=== PATIENT | female | born 1980 | race Caucasian/White ===

== ENCOUNTER 2022-07-26 09:41 | Outpatient (OUT) | payer MEDICAID, SELFPAY ==
[2022-07-26 10:08] LABS: Basophils Absolute Auto 0.1 10^3/uL (0.0-0.1); Basophils Percent Auto 0.9 % (0.2-2.0); Eosinophils Absolute Auto 0.2 10^3/uL (0.0-0.7); Eosinophils Percent Auto 2.4 % (0.9-7.0); Hematocrit 40.4 % (36.0-48.0); Hemoglobin 13.5 g/dL (12.0-16.0); Immature Granulocytes Abs Auto 0.02 10^3/uL (0.00-0.03); Immature Granulocytes Pct Auto 0.2 % (0.0-0.5); Lymphocytes Absolute Auto 2.2 10^3/uL (1.2-3.8); Lymphocytes Percent Auto 25.2 % (20.5-60.0); Mean Corpuscular HGB Conc 33.4 g/dL (29.9-35.2); Mean Corpuscular Hemoglobin 30.4 pg (26.7-34.0); Mean Platelet Volume 8.9 fL (9.5-13.5); Monocytes Absolute Auto 0.6 10^3/uL (0.3-0.8); Monocytes Percent Auto 6.4 % (1.7-12.0); Neutrophils Absolute Auto 5.7 10^3/uL (1.4-6.5); Neutrophils Percent Auto 64.9 % (43.0-75.0); Platelet Count 328 10^3/uL (150-450); Red Blood Count 4.44 10^6/uL (4.20-5.40); Red Cell Distribution Width 12.9 % (11.0-15.0); White Blood Count 8.8 10^3/uL (4.0-11.0)
[2022-07-26 11:43] LABS: Alanine Aminotransferase 18 U/L (14-59); Albumin Globulin Ratio 0.8; Albumin Level 3.3 g/dL (3.4-5.0); Alkaline Phosphatase 131 U/L (46-116); Anion Gap 13.4; Aspartate Amino Transferase 12 U/L (15-37); BUN Creatinine Ratio 11.7; Bilirubin Total 0.6 mg/dL (0.2-1.0); Calcium 8.8 mg/dL (8.5-10.1); Carbon Dioxide 26.4 mmol/L (21.0-32.0); Chloride 105 mmol/L (98-107); Chol HDL Ratio 4.9; Cholesterol 214 mg/dL (<=200); Estimated GFR (African America >60 (>=60); Estimated GFR (Non-African Ame >60 (>=60); Glucose 102 mg/dL (74-106); HDL Cholesterol 44 mg/dL (40-60); Potassium 3.8 mmol/L (3.5-5.1); Sodium 141 mmol/L (136-145); Total Protein 7.3 g/dL (6.4-8.2); Triglycerides 112 mg/dL (<=150); VLDL CHOLESTEROL 22.4 mg/dL
[2022-07-26 13:16] LABS: Gamma Glutamyl Transpeptidase 16 U/L (8-55)
[2022-07-27 05:07] LABS: HIV Ab/p24 Ag Screen Non Reactive (Non Reactive)
== END 2022-07-26 09:42 ==
PROVIDERS: PCP Nurse Practitioner Primary Care; Visit Provider Nurse Practitioner Primary Care
DX: Z11.4 Encounter for screening for human immunodeficiency virus [HIV] (principal); E78.5 Hyperlipidemia, unspecified; I10 Essential (primary) hypertension; R74.8 Abnormal levels of other serum enzymes
CPT/HCPCS: 36415; 80053; 80061; 82977; 85025; 87086; 87389

== ENCOUNTER 2022-07-28 10:54 | Outpatient (OUT) | payer MEDICAID, SELFPAY ==
[2022-07-28 11:15] LABS: Basophils Absolute Auto 0.1 10^3/uL (0.0-0.1); Basophils Percent Auto 0.9 % (0.2-2.0); Eosinophils Absolute Auto 0.3 10^3/uL (0.0-0.7); Eosinophils Percent Auto 3.3 % (0.9-7.0); Hemoglobin 13.4 g/dL (12.0-16.0); Immature Granulocytes Abs Auto 0.01 10^3/uL (0.00-0.03); Immature Granulocytes Pct Auto 0.1 % (0.0-0.5); Lymphocytes Absolute Auto 2.2 10^3/uL (1.2-3.8); Lymphocytes Percent Auto 29.5 % (20.5-60.0); Mean Corpuscular HGB Conc 33.5 g/dL (29.9-35.2); Mean Corpuscular Hemoglobin 30.4 pg (26.7-34.0); Mean Corpuscular Volume 90.7 fL (81.0-99.0); Mean Platelet Volume 9.1 fL (9.5-13.5); Monocytes Absolute Auto 0.6 10^3/uL (0.3-0.8); Monocytes Percent Auto 7.7 % (1.7-12.0); Neutrophils Absolute Auto 4.4 10^3/uL (1.4-6.5); Neutrophils Percent Auto 58.5 % (43.0-75.0); Platelet Count 283 10^3/uL (150-450); Red Blood Count 4.41 10^6/uL (4.20-5.40); Red Cell Distribution Width 13.1 % (11.0-15.0); White Blood Count 7.6 10^3/uL (4.0-11.0)
[2022-07-28 12:56] LABS: Amylase 36 U/L (25-115)
== END 2022-07-28 10:55 | disposition home or self-care (01) ==
LOC: LAB 10:55
PROVIDERS: PCP Nurse Practitioner Primary Care; Visit Provider Nurse Practitioner Primary Care
DX: R10.9 Unspecified abdominal pain (principal)
CPT/HCPCS: 36415; 82150; 83690; 85025

== ENCOUNTER 2022-07-28 18:28 | Outpatient (REF) | payer MEDICAID, SELFPAY | END 2022-07-28 18:29 | disposition home or self-care (01) | LOC: LAB 18:28 | PROVIDERS: PCP Nurse Practitioner Primary Care; Visit Provider Nurse Practitioner Primary Care | DX: R10.9 Unspecified abdominal pain (principal) | CPT/HCPCS: 36415; 82150; 83690; 85025; 87086; 87150; 87186 ==

== ENCOUNTER 2022-08-03 18:40 | Emergency (ER) | payer MEDICAID, SELFPAY ==
[2022-08-03 18:53] VITALS: BP 143/93; PULSE 113; RESP 16; TEMP 37; O2SAT 97; BMI 41.6
--- NOTE | 2022-08-03 19:20 | ED.WOUNDLAC1 ---
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 She states absorbable sutures were placed inside the incision and several days ago she had a small area of the incision over her right episcopal open and draining. She states there is now scabbed area she is concerned about. She has had no fevers or vomiting. She states she has some tenderness to the area but no significant pain and states overall she feels she is healing very well. She states she called her surgeon and was told to come to the emergency department. She is at the end of a prescription of Bactrim for urinary tract infection. Related Data Previous Rx's Medication Instructions Recorded cephalexin 500 mg capsule 500 mg PO Q8H 5 days #15 caps 08/03/22 mupirocin calcium 2 % topical cream 1 applic topical BID #15 grams 08/03/22 Allergies Allergy/AdvReac Type Severity Reaction Status Date / Time Penicillins Allergy Intermediate Verified 08/03/22 18:53 naproxen [From EC-Naproxen] AdvReac Intermediate Verified 08/03/22 18:53 nickel AdvReac Uncoded 08/03/22 18:53 Review of Systems ROS Constitutional Denies: fever or chills Eyes Denies: change in vision Cardiovascular Denies: chest pain Respiratory Denies: shortness of breath or cough Gastrointestinal Denies: nausea or vomiting Musculoskeletal Denies: back pain Integumentary/Breast Reports: redness, skin pain and skin tenderness; Denies: rash Neurological Denies: headache PFSH PFSH Social History Smoking status: Current every day smoker Exam Narrative Exam Narrative: Gen.: Awake, alert, in no distress Head: Normocephalic, atraumatic; surgical incision that is well-healed over the right hairline. 1 cm scabbed area in the center of the incision consistent with scabbed wound dehiscence, no visible abscess or drainage at this time. No bleeding. Minimal tenderness of the skin around this area. ENT: Moist mucous membranes Respiratory: No respiratory distress, lungs clear bilaterally Cardio: Regular rate and rhythm Gastrointestinal: Abdomen is soft, nondistended and nontender to palpation Extremities: Moves extremities equally, no injuries noted Psych: Normal mood and affect Neuro: No focal neuro deficit Skin: Warm, dry, intact Constitutional Vital Signs - 24 hr 08/03/22 18:53 Temperature 98.6 F Pulse Rate [Monitor] 113 H Respiratory Rate 16 Blood Pressure [Right Arm] 143/93 H Pulse Oximetry 97 Oxygen Delivery Method Room Air Course Vital Signs Vital signs: Vital Signs Temperature 98.6 F 08/03/22 18:53 Pulse Rate 113 H 08/03/22 18:53 Respiratory Rate 16 08/03/22 18:53 Blood Pressure 143/93 H 08/03/22 18:53 Pulse Oximetry 97 08/03/22 18:53 Oxygen Delivery Method Room Air 08/03/22 18:53 Temperature 98.6 F 08/03/22 18:53 Pulse Rate 113 H 08/03/22 18:53 Respiratory Rate 16 08/03/22 18:53 Blood Pressure 143/93 H 08/03/22 18:53 Pulse Oximetry 97 08/03/22 18:53 Oxygen Delivery Method Room Air 08/03/22 18:53 MDM - Wound/Laceration MDM Narrative Medical decision making narrative: exam is consistent with minimal wound dehiscence and scabbed area. Patient given Bactroban ointment to apply to the area as well as five days of Keflex to prevent skin infection. She appears to have a well-healing incision at this time with no large areas of dehiscence, bleeding or abscess noted. Follow-up with your surgeon and return to the Emergency Room if symptoms change or worsen Medical Records Attestation: I reviewed the patient's medical records. Discharge Plan Discharge Chief Complaint: Wound/Laceration Clinical Impression: Wound dehiscence, surgical Patient Disposition: Home, Self-Care Time of Disposition Decision: 19:21 Condition: Good Prescriptions / Home Meds: New cephalexin 500 mg capsule 500 mg PO Q8H 5 Days Qty: 15 0RF mupirocin calcium 2 % cream 1 applic topical BID Qty: 15 0RF Instructions: Wound Dehiscence (ED), Care For Your Absorbable Stitches (ED) Stand Alone Forms: Portal Instructions Referrals: EDMAR PRIETO APRN [Primary Care Provider] - 1 week
== END 2022-08-03 19:45 | disposition home or self-care (01) ==
PROVIDERS: Emergency Provider Emergency Medicine; PCP Nurse Practitioner Primary Care
DX: T81.31XA Disruption of external operation (surgical) wound, not elsewhere classified, initial encounter (principal); F17.210 Nicotine dependence, cigarettes, uncomplicated
CPT/HCPCS: 99282

== ENCOUNTER 2022-08-10 10:13 | Outpatient (OUT) | payer MEDICAID, SELFPAY ==
--- NOTE | 2022-08-10 10:17 | XR_ITS ---
The [address] [address] Patient Name: ARACELI FRANCOIS MRN: [id number] date: 1980 Sex: F Assigned Patient Location: [facility] Current Patient Location: [facility] Accession/Order Number: [id number] Exam Date: 08/10/2022 10:40 Report Date: 08/10/2022 11:01 At the request of: EDMAR PRIETO Procedure: XR chest 2V EXAMINATION: XR chest 2V HISTORY: Upper back pain M54.9 COMPARISON: XR chest 12/06/2021 FINDINGS: LUNGS: No significant pulmonary parenchymal abnormalities. VASCULATURE: No increased pulmonary vasculature. PLEURA: No pneumothorax, effusion, or pleural thickening. CARDIAC: No cardiomegaly or cardiac silhouette abnormality. MEDIASTINUM: No visible mass or adenopathy. BONES: No fracture or visible bone lesion. OTHER: Negative. IMPRESSION: 1. Normal chest. Electronically authenticated by: GIANFRANCO CORDON Date: 08/10/2022 11:01
== END 2022-08-10 10:14 | disposition home or self-care (01) ==
LOC: RAD 10:14
PROVIDERS: PCP Nurse Practitioner Primary Care; Visit Provider Nurse Practitioner Primary Care
DX: M54.9 Dorsalgia, unspecified (principal)
CPT/HCPCS: 71046

== ENCOUNTER 2022-09-19 08:30 | Emergency (ER) | payer MEDICAID, SELFPAY ==
[2022-09-19 08:34] VITALS: BP 144/90; PULSE 90; RESP 18; TEMP 36.7; O2SAT 99; BMI 38.0
--- NOTE | 2022-09-19 09:15 | ED_ITS ---
HPI - General Adult General Chief complaint: Abdominal Pain Stated complaint: BLOOD IN URINE Time Seen by Provider: 09/19/22 08:33 Source: patient Mode of arrival: walk-in Limitations: no limitations History of Present Illness HPI narrative: 42-year-old female to the emergency department with chief complaint of hematuria. Patient reports she had dysuria, frequency, hematuria ongoing for the last few days. She noticed hematuria this morning. She reports a month and half ago she had a urinary tract infection with similar symptoms. She reports some mild nausea and body aches today. She reports mild flank/back pain which is chronic for her. She is otherwise at her baseline health. Related Data Previous Rx's Medication Instructions Recorded cephalexin 500 mg capsule 500 mg PO Q6H 7 days #28 caps 09/19/22 Allergies Allergy/AdvReac Type Severity Reaction Status Date / Time Penicillins Allergy Intermediate Verified 08/03/22 18:53 duloxetine [From Cymbalta] AdvReac Intermediate Verified 09/19/22 08:34 naproxen [From EC-Naproxen] AdvReac Intermediate Verified 08/03/22 18:53 nickel AdvReac Uncoded 08/03/22 18:53 Review of Systems ROS Status of ROS 10 or more systems reviewed and unremarkable except as noted in history and below [facility] Social History Smoking status: Current every day smoker Exam Narrative Exam Narrative: VITALS: I have reviewed the triage vital signs. GENERAL: Well developed, well appearing adult in no acute distress. NEURO: Alert and oriented. Moves all extremities. Face is symmetric and expres sive. EYES: PERRL. No scleral icterus or conjunctival injection. No discharge. HENT: Normocephalic, atraumatic. Hearing is grossly intact. Nares grossly patent and without discharge. Mucous membranes moist. NECK: No JVD. Patient moves neck without restriction. CARDIO: Rhythm regular. Normal rate. No murmur, rub, or gallop. Pulses equal bilaterally in the upper and lower extremity. No lower extremity edema. PULM: Lungs clear to auscultation in all cabral. No wheezes, rales, or rhonchi. No conversational dyspnea. No splinting, stridor, or accessory muscle use. GI/: Abdomen is soft and non-tender. Normoactive bowel sounds. EXTREMITIES: Symmetric muscle bulk. No joint swelling. No clubbing, cyanosis, or deformity. SKIN: Warm and dry. Normal turgor. No rash or lesions appreciated. PSYCH: Mood, affect, and interaction is appropriate to the setting. Constitutional Vital Signs, click to edit/add: Last Vital Signs Temp 98.1 F 09/19/22 08:34 Pulse 90 09/19/22 08:34 Resp 18 09/19/22 08:34 BP 144/90 H 09/19/22 08:34 Pulse Ox 99 09/19/22 08:34 O2 Del Method Room Air 09/19/22 08:34 Course Vital Signs Vital signs: Vital Signs Temperature 98.1 F 09/19/22 08:34 Pulse Rate 90 09/19/22 08:34 Respiratory Rate 18 09/19/22 08:34 Blood Pressure 144/90 H 09/19/22 08:34 Pulse Oximetry 99 09/19/22 08:34 Oxygen Delivery Method Room Air 09/19/22 08:34 Temperature 98.1 F 09/19/22 08:34 Pulse Rate 90 09/19/22 08:34 Respiratory Rate 18 09/19/22 08:34 Blood Pressure 144/90 H 09/19/22 08:34 Pulse Oximetry 99 09/19/22 08:34 Oxygen Delivery Method Room Air 09/19/22 08:34 Medical Decision Making MDM Narrative Medical decision making narrative: 42-year-old female with the emergency department with urinary tract infection like symptoms. Medical stable, the patient is afebrile. Her abdominal examination is benign. Urinalysis sent. Status post hysterectomy, hCG not indicated. UA consistent with UTI. Previous culture reviewed, Klebsiella only resistant to ampicillin. Culture sent. Keflex QID x7 days. She has a scheduled follow-up with urology. Discussed need for follow-up for hematuria. She'll follow up with PCP. All questions were answered. Patient was discharged home. Medical Records Medical records reviewed: Yes I reviewed the patient's medical records Lab Data Lab results reviewed: Yes I reviewed the patient's lab results Labs: Lab Results 09/19/22 Range/Units 08:40 Urine Color Brown A (YELLOW) Urine Clarity Turbid A (CLEAR) Urine pH 6.5 (5.0-9.0) Ur Specific [place] 1.025 (1.005-1.025) Urine Protein >=300 A (NEG/TRACE) mg/dL Urine Glucose (UA) Negative (NEGATIVE) mg/dL Urine Ketones Negative (NEGATIVE) mg/dL Urine Occult Blood Large A (NEGATIVE) Urine Nitrite Color interference A (NEGATIVE) Urine Bilirubin Negative (NEGATIVE) Urine Urobilinogen 0.2 (0.2-1.0) EU/dL Ur Leukocyte Esterase Moderate A (NEGATIVE) Urine RBC >100 A (0-2) #/HPF Urine WBC 5-10 A (NONE SEEN) #/HPF Ur Squamous Epith Cells None seen (NONE/RARE) #/LPF Urine Crystals None seen (None Seen) #/HPF Urine Bacteria Trace A (NONE SEEN) #/HPF Urine Casts None seen (NONE SEEN) #/LPF Urine Mucus None seen (NONE SEEN) Ur Culture Indicated? Yes Discharge Plan Discharge Chief Complaint: Abdominal Pain Clinical Impression: UTI (urinary tract infection) Patient Disposition: Home, Self-Care Time of Disposition Decision: 09:28 Condition: Good Prescriptions / Home Meds: New cephalexin 500 mg capsule 500 mg PO Q6H 7 Days Qty: 28 0RF Print Language: Korean Instructions: Urinary Tract Infection in Women (ED) Stand Alone Forms: Portal Instructions Referrals: EDMAR PRIETO APRN [Primary Care Provider] - 1 week (Keep your visit with urology as well)
[2022-09-19 09:21] LABS: Clarity Urine TURBID (CLEAR); Protein Urine >=300 mg/dL (NEG/TRACE); Specific Gravity Urine 1.025 (1.005-1.025); pH Urine 6.5 (5.0-9.0)
[2022-09-19 09:22] LABS: Bilirubin Urine NEGATIVE (NEGATIVE); Blood Urine LARGE (NEGATIVE); Color Urine BROWN (YELLOW); Glucose Urine UA NEGATIVE (NEGATIVE); Ketones Urine NEGATIVE (NEGATIVE); Leukocyte Esterase Urine MODERATE (NEGATIVE); Nitrite Urine COLOR INTERFERENCE (NEGATIVE); Urobilinogen Urine 0.2 EU/dL (0.2-1.0)
[2022-09-19 09:23] LABS: Bacteria Urine TRACE #/HPF (NONE SEEN); Cast Seen? NONE SEEN #/LPF (NONE SEEN); Crystals Seen? None Seen #/HPF (None Seen); Mucus Urine NONE SEEN (NONE SEEN); RBC Urine >100 #/HPF (0-2); Squamous Epithelial Cell Urine NONE SEEN #/LPF (NONE/RARE); Urine Culture Indicated YES
== END 2022-09-19 09:36 | disposition home or self-care (01) ==
PROVIDERS: Emergency Provider Student in an Organized Health Care Education/Training Program; PCP Nurse Practitioner Primary Care
DX: N39.0 Urinary tract infection, site not specified (principal); F17.210 Nicotine dependence, cigarettes, uncomplicated
CPT/HCPCS: 81001; 87086; 87150; 87186; 99283

== ENCOUNTER 2022-10-27 07:47 | Outpatient (OUT) | payer MEDICAID, SELFPAY ==
[2022-10-27 08:21] LABS: Alanine Aminotransferase 21 U/L (14-59); Albumin Globulin Ratio 0.8; Albumin Level 3.2 g/dL (3.4-5.0); Alkaline Phosphatase 140 U/L (46-116); Anion Gap 11.3; Aspartate Amino Transferase 15 U/L (15-37); BUN Creatinine Ratio 9.6; Bilirubin Total 0.7 mg/dL (0.2-1.0); Calcium 8.5 mg/dL (8.5-10.1); Carbon Dioxide 29.8 mmol/L (21.0-32.0); Chloride 103 mmol/L (98-107); Cholesterol 135 mg/dL (<=200); Estimated GFR (African America >60 (>=60); Estimated GFR (Non-African Ame >60 (>=60); Globulin 3.8 g/dL; Glucose 93 mg/dL (74-106); HDL Cholesterol 45 mg/dL (40-60); LDL Cholesterol Calculated 72.8 mg/dL; Potassium 4.1 mmol/L (3.5-5.1); Sodium 140 mmol/L (136-145); Triglycerides 86 mg/dL (<=150); VLDL CHOLESTEROL 17.2 mg/dL
== END 2022-10-27 07:48 | disposition home or self-care (01) ==
LOC: LAB 07:47
PROVIDERS: PCP Nurse Practitioner Primary Care; Visit Provider Nurse Practitioner Primary Care
DX: I10 Essential (primary) hypertension (principal); E78.5 Hyperlipidemia, unspecified
CPT/HCPCS: 36415; 80053; 80061

== ENCOUNTER 2022-11-06 07:38 | Outpatient (OUT) | payer MEDICAID, SELFPAY ==
[2022-11-06 08:00] LABS: Basophils Absolute Auto 0.1 10^3/uL (0.0-0.1); Basophils Percent Auto 0.8 % (0.2-2.0); Eosinophils Absolute Auto 0.2 10^3/uL (0.0-0.7); Eosinophils Percent Auto 2.5 % (0.9-7.0); Hematocrit 43.3 % (36.0-48.0); Hemoglobin 14.4 g/dL (12.0-16.0); Immature Granulocytes Abs Auto 0.01 10^3/uL (0.00-0.03); Immature Granulocytes Pct Auto 0.1 % (0.0-0.5); Lymphocytes Absolute Auto 2.1 10^3/uL (1.2-3.8); Lymphocytes Percent Auto 21.7 % (20.5-60.0); Mean Corpuscular HGB Conc 33.3 g/dL (29.9-35.2); Mean Corpuscular Hemoglobin 29.9 pg (26.7-34.0); Mean Corpuscular Volume 89.8 fL (81.0-99.0); Mean Platelet Volume 9.6 fL (9.5-13.5); Monocytes Absolute Auto 0.4 10^3/uL (0.3-0.8); Monocytes Percent Auto 4.7 % (1.7-12.0); Neutrophils Absolute Auto 6.6 10^3/uL (1.4-6.5); Neutrophils Percent Auto 70.2 % (43.0-75.0); Platelet Count 271 10^3/uL (150-450); Red Blood Count 4.82 10^6/uL (4.20-5.40); Red Cell Distribution Width 13.2 % (11.0-15.0); White Blood Count 9.5 10^3/uL (4.0-11.0)
[2022-11-06 08:45] LABS: Estimated Average Glucose 117 mg/dL; Glycohemoglobin A1C 5.7 % (4.5-6.2)
[2022-11-06 09:19] LABS: Thyroid Stimulating Hormone 5.057 uIU/mL (0.358-3.740)
[2022-11-06 10:07] LABS: Free T4 0.88 ng/dL (0.76-1.46)
[2022-11-07 05:08] LABS: HCV Ab Non Reactive (Non Reactive)
== END 2022-11-06 07:39 | disposition home or self-care (01) ==
LOC: LAB 07:39
PROVIDERS: PCP Nurse Practitioner Primary Care; Visit Provider Nurse Practitioner Primary Care
DX: Z00.00 Encounter for general adult medical examination without abnormal findings (principal); Z11.59 Encounter for screening for other viral diseases; Z13.6 Encounter for screening for cardiovascular disorders; Z13.29 Encounter for screening for other suspected endocrine disorder
CPT/HCPCS: 36415; 83036; 84439; 84443; 85025; 86803

== ENCOUNTER 2022-11-09 19:10 | Outpatient (REF) | payer MEDICAID, SELFPAY ==
[2022-11-09 19:32] LABS: Adenovirus NOT DETECTED (NOT DETECTE); Bordetella parapertussis NOT DETECTED (NOT DETECTE); Coronavirus 229E NOT DETECTED (NOT DETECTE); Coronavirus HKU1 NOT DETECTED (NOT DETECTE); Coronavirus NL63 NOT DETECTED (NOT DETECTE); Coronavirus OC43 NOT DETECTED (NOT DETECTE); Human Metapneumovirus NOT DETECTED (NOT DETECTE); Human Rhinovirus/Enterovirus NOT DETECTED (NOT DETECTE); Influenza A NOT DETECTED (NOT DETECTE); Influenza B NOT DETECTED (NOT DETECTE); Mycoplasma pneumoniae NOT DETECTED (NOT DETECTE); Parainfluenza Virus 1 NOT DETECTED (NOT DETECTE); Parainfluenza Virus 2 NOT DETECTED (NOT DETECTE); Parainfluenza Virus 3 NOT DETECTED (NOT DETECTE); Parainfluenza Virus 4 NOT DETECTED (NOT DETECTE); Respiratory Syncytial Virus NOT DETECTED (NOT DETECTE); SARS-CoV-2 NOT DETECTED (NOT DETECTE)
== END 2022-11-09 19:11 | disposition home or self-care (01) ==
LOC: LAB 19:10
PROVIDERS: PCP Nurse Practitioner Primary Care; Visit Provider Nurse Practitioner Primary Care
DX: Z20.822 Contact with and (suspected) exposure to COVID-19 (principal); J02.9 Acute pharyngitis, unspecified
CPT/HCPCS: 0202U

== ENCOUNTER 2022-11-13 08:54 | Outpatient (OUT) | payer MEDICAID, SELFPAY ==
--- NOTE | 2022-11-13 08:59 | MM_ITS ---
Patient: ARACELI FRANCOIS Exam Date: 11/13/2022 : 1980 Gender:F Ordering : EDMAR PRIETO Admission #: [id number] Family : Order #: [id number] CLICK HERE TO VIEW EXAM RADIOLOGY REPORT PROCEDURE: MM TOMOSYNTHESIS SCREENING BI COMPARISON: MG MAMM SCREEN 3D TISHA CAD, 11/08/2021. MG MAMM SCREEN 3D TISHA CAD, 07/19/2020. INDICATIONS: Screening Calculator Name NCI Breast Cancer Risk Assessment Tool 5 Year Breast Cancer Risk 0.50% Lifetime Breast Cancer Risk 6.50% Personal Breast Cancer No Personal Ovarian Cancer No Treatments None Family Cancers None LOCATION: [facility] BREAST COMPOSITION: Scattered areas fibroglandular density. FINDINGS: DIAGNOSTIC CATEGORY 1--NEGATIVE. NO CHANGE FROM COMPARISON ASSESSMENT. Scattered benign-appearing calcifications are present. Scattered benign-appearing lymph nodes are present. RIGHT BREAST: No significant suspicious finding. LEFT BREAST: No significant suspicious finding. RECOMMENDATIONS: ROUTINE MAMMOGRAM AND CLINICAL EVALUATION IN 12 MONTHS. PLEASE NOTE: A NORMAL MAMMOGRAM DOES NOT EXCLUDE THE POSSIBILITY OF BREAST CANCER. A CLINICALLY SUSPICIOUS PALPABLE LUMP SHOULD BE BIOPSIED. Dictated by: Keith Ferreira MD on 11/13/2022 at 10:45 Approved by: Keith Ferreira MD on 11/13/2022 at 10:46
== END 2022-11-13 08:55 | disposition home or self-care (01) ==
LOC: MAMMO 08:54
PROVIDERS: PCP Nurse Practitioner Primary Care; Visit Provider Nurse Practitioner Primary Care
DX: Z12.31 Encounter for screening mammogram for malignant neoplasm of breast (principal)
CPT/HCPCS: 77063; 77067

== ENCOUNTER 2023-01-10 21:16 | Outpatient (REF) | payer MEDICAID, SELFPAY ==
[2023-01-10 22:31] LABS: Adenovirus NOT DETECTED (NOT DETECTE); Coronavirus 229E NOT DETECTED (NOT DETECTE); Coronavirus HKU1 NOT DETECTED (NOT DETECTE); Coronavirus NL63 NOT DETECTED (NOT DETECTE); Coronavirus OC43 NOT DETECTED (NOT DETECTE)
[2023-01-10 22:32] LABS: Bordetella parapertussis NOT DETECTED (NOT DETECTE); Human Metapneumovirus NOT DETECTED (NOT DETECTE); Human Rhinovirus/Enterovirus NOT DETECTED (NOT DETECTE); Influenza A NOT DETECTED (NOT DETECTE); Influenza B NOT DETECTED (NOT DETECTE); Mycoplasma pneumoniae NOT DETECTED (NOT DETECTE); Parainfluenza Virus 1 NOT DETECTED (NOT DETECTE); Parainfluenza Virus 2 NOT DETECTED (NOT DETECTE); Parainfluenza Virus 3 NOT DETECTED (NOT DETECTE); Parainfluenza Virus 4 NOT DETECTED (NOT DETECTE); Respiratory Syncytial Virus NOT DETECTED (NOT DETECTE)
[2023-01-10 23:25] LABS: SARS-CoV-2 DETECTED (NOT DETECTE)
== END 2023-01-10 21:17 | disposition home or self-care (01) ==
LOC: LAB 21:16
PROVIDERS: PCP Nurse Practitioner Primary Care; Visit Provider Nurse Practitioner Primary Care
DX: J06.9 Acute upper respiratory infection, unspecified (principal)
CPT/HCPCS: 0202U

== ENCOUNTER 2023-04-12 09:36 | Outpatient (OUT) | payer MEDICAID, SELFPAY ==
--- OUTSIDE RECORDS SUMMARY | 2023-04-12 09:40 | XMS_ITS | CCD ---
Author Name Unknown Address [address] [place] [address] Organization [facility] Care Team Providers Care Hot [employer] Mill Inspector Name Role Phone DO Ron Wallace Attending Provider NON STAFF Primary Care Provider Unavailabl e SHAMMO, SHAD Primary Care Unavailable SHAMMO, SHAD Attending Unavailable SHAMMO, SHAD Admitting Unavailable WEST, DR MARCE Marion Consulting Unavailable SHAMMO, SHAD Consulting Unavailable SHAMMO, SHAD Attending Unavailable SHAMMO, SHAD Admitting Unavailable WEST, DR MARCE Marion Consulting Unavailable SHAMMO, SHAD Primary Care Unavailable SHAMMO, SHAD Consulting Unavailable SHAMMO, SHAD Primary Care Unavailable SHAMMO, SHAD Attending Unavailable SHAMMO, SHAD Admitting Unavailable WEST, DR MARCE Marion Consulting Unavailable SHAMMO, SHAD Consulting Unavailable GUIDRY ., DR OMAR Benitez Attending Unavailable WEST, DR MARCE Marion Consulting Unavailable GUIDRY ., DR OMAR Benitez Admitting Unavailable SHAMMO, SHAD Primary Care Unavailable GUIDRY ., DR OMAR Benitez Consulting Unavailable GUIDRY ., DR OMAR Benitez Attending Unavailable GUIDRY ., DR OMAR Benitez Admitting Unavailable SHAMMO, SHAD Primary Care Unavailable HARTLEY .ZELALEM Consulting Unavailable GUIDRY ., DR OMAR Benitez Consulting Unavailable [facility] Attending Unava ilable [facility] Admitting Unava ilable SHAMMO, SHAD Primary Care Unavailable IRMA ROTH Consulting Unavailable IRAM ROTH Attending Unavailable MISC, DR ALVAREZ Primary Care Unavailable IRAM ROTH Admitting Unavailable ELAINE, MICHELLE Consulting Unavailable PAY ., DR MADERA Consulting Unavailable PAY ., DR MADERA Attending Unavailable MISC, DR ALVAREZ Primary Care Unavailable PAY ., DR MADERA Admitting Unavailable SHAMMO, SHAD Admitting Unavailable SHAMMO, SHAD Attending Unavailable SHAMMO, SHAD Primary Care Unavailable JES, QUIRINO Attending Unavailable SHAMMO, SHAD Primary Care Unavailable JES, QUIRINO Admitting Unavailable NUREMBERG, DR MARCE Marion Consulting Unavailable JES, QUIRINO Consulting Unavailable SHAMMO, SHAD Consulting Unavailable SHAMMO, SHAD Admitting Unavailable SHAMMO, SHAD Attending Unavailable SHAMMO, SHAD Primary Care Unavailable SHAMMO, SHAD Admitting Unavailable SHAMMO, SHAD Consulting Unavailable SHAMMO, SHAD Attending Unavailable SHAMMO, SHAD Primary Care Unavailable MISC, DOCTOR Attending Unavailable SHAMMO, SHAD Consulting Unavailable MISC, DOCTOR Primary Care Unavailable MISC, DOCTOR Admitting Unavailable NON STAFF Primary Care Provider UnavailMD Siva De La Garza Attending Provider Siva You Admitting Unavailable Siva You Attending Unavailable NON STAFF Primary Care Unavailable NON STAFF Primary Care Unavailable Joe Wallace Admitting Unavailab Joe Clarke Attending Unavailab Albaro Joseph Unavailable Greyson Mtz Attending Unavailable Bibi Kadori Primary Care Unavailable RESZKO, LASHELL Attending Unavailable RESZKO, LASHELL Attending Unavailable JES, QUIRINO Attending Unavailable RESZKO, LASHELL Attending Unavailable RESZKO, LASHELL Attending Unavailable RESZKO, LASHELL Attending Unavailable RESZKO, LASHELL Attending Unavailable Kisha Barkley Unavailable Shammo BUNDLES HANGER-MANUSCRIPTS CURATOR, Shad Primary Care Provider [phone] DB RIVERA Attending Unavailable RIVERADB WRIGHT Referring Unavailable SHAMMO, SHAD Primary Care Unavailable LIZZ GUTIÉRREZ Referring Unavailable SHAMMO, SHAD Primary Care Unavailable SHAMMO, SHAD Referring Unavailable SHAMMO, SHAD Primary Care Unavailable DB RIVERA Admitting Unavailable RIVERA, DB Attending Unavailable SHAMMO, SHAD Primary Care Unavailable Allergies Allergy Classification Reported Allergen(s) Allergy Type Date of Onset Reaction(s) Facility (2 sources) DULoxetine Drug Allergy 12-21-19 [facility] (4 sources) Leucine; Translations: [NICKEL] Drug Allergy 08-05-19 19 [facility] (4 sources) Penicillin Drug Allergy 05-28-19 21 Unknown [facility] (9 sources) DULoxetine; Translations: [duloxetine] Drug Allergy 12-29-19 22 Vomiting [facility] (10 sources) Naproxen; Translations: [naproxen] Drug Allergy 06-09-19 17 Hives [facility] (7 sources) Penicillins; Translations: [Penicillins] Allergy to substance 03-20-19 17 Shortness Of Breath, Rash [facility] (1 source) Unable to Assess Drug allergy (disorder) 12-21-19 [facility] (3 sources) penicillAMINE Drug Allergy anaphylaxis [facility] Other (1 source) Bee pollen; Translations: [BEE POLLEN] Propensity to adverse reactions to drug (disorder) 01-12-20 [facility] (3 sources) nickel Drug Allergy 08-05-19 anaphylaxis [facility] Medications Current Medications Medication Drug Class(es) Dates Sig (Normalized) Sig (Original) acetaminophen 500 mg oral tablet (5 sources) Start: 10-17-2021 take 1 tablet by mouth every six hours as needed for pain acetaminophen (TYLENOL EXTRA STRENGTH) 500 mg tablet Take 1 tablet (500 mg total) by mouth every 6 (six) hours as needed for pain. 30 tablet 0 10/17/2021 Active Tylenol prn Acti ve [id number] actuat albuterol 0.09 mg/actuat metered dose inhaler (1 source) beta2-Adrenergic Agonist Start: 03-09-2023 take 2 puff(s) by inhalation every four to six hours as needed Albuterol Sulfate HFA 108 (90 Base) MCG/ACT 2 puffs as needed Inhalation every 4-6 hours for 14 days Mar, Active amitriptyline hydrochloride 50 mg oral tablet (5 sources) Tricyclic Antidepressant Start: 11-29-2022 amitriptyline (ELAVIL) 50 mg tablet Indications: Fibromyalgia One capsule at 8 PM each night 90 tablet 1 11/29/2022 Active take 1 tablet by roselyn th every twenty-four hours Amitriptyline HCl 25 MG 1 tablet at bedtime Orally Once a day Active amLODIPine 5 mg oral tablet (2 sources) Dihydropyridine Calcium Channel Estella Start: 12-25-2021 take 2 tablets by mouth once daily amLODIPine (NORVASC) 5 mg tablet Indications: hypertension Take 2 tablets (10 mg total) by mouth nightly Indications: high blood pressure. 0 12/25/2021 Active atorvastatin 20 mg oral tablet (6 sources) HMG-CoA Reductase Inhibitor Start: 04-24-2022 take 1 tablet by mouth in the morning atorvastatin (LIPITOR) 20 mg tablet Take 1 tablet (20 mg total) by mouth in the morning. 0 04/24/2022 Active take 1 tablet by roselyn every twenty-four hours Atorvastatin Calcium 40 MG 1 tablet Oral ly Once a day Active Dicyclomine (3 sources) Anticholinergic Dicyclomine HCl 10mg Active Fish Oils (3 sources) Fish Oil Active FLUoxetine 20 mg oral capsule (2 sources) Serotonin Reuptake Inhibitor Start: 023 take 1 capsule by mouth in the morning FLUoxetine (PROzac) 20 mg capsule Indications: Fibromyalgia Take 1 capsule (20 mg total) by mouth in the morning. 90 capsule 1 11/29/2022 Active fluticasone / salmeterol (2 sources) Corticosteroid, beta2-Adrenergic Agonist take 1 puff(s) by inhalation in the morning fluticasone propion-salmeteroL (ADVAIR) 100-50 mcg/dose DISKUS Inhale 1 puff in the morning and 1 puff before bedtime. 0 Active losartan potassium 100 mg oral tablet (6 sources) Angiotensin 2 Receptor Estella Start: 023 take 100 mg by mouth once daily Losartan Active 100 MG PO Daily September 12, 2022 12:00am Start: 12-05-2021 take 2 tablets by mo [facility] once daily losartan (COZAAR) 50 mg tablet Take 2 tablets (100 mg total) by mouth nightly. 0 12/05/2021 Active Losartan Potassi um Active methylPREDNISolone 4 mg oral tablet (1 source) Corticosteroid Start: 03-09-2023 methylPREDNISolone 4 MG as directed Orally for 6 Mar, Active naloxone hydrochloride 40 mg/ml nasal spray (2 sources) Opioid Antagonist Start: 07-07-2022 naloxone (NARCAN) 4 mg/actuation spray,non-aerosol nasal spray Administer 1 spray (4 mg total) into alternating nostrils as needed for opioid reversal. 1 each 0 07/07/2022 Active omega 3-gme-jgb-fish oil (FISH OIL) 300-1,000 mg capsule,delayed release(DR/EC) (2 sources) Start: 05-22-2022 omega 6-muy-oqb-fish oil (FISH OIL) 300-1,000 mg capsule,delayed release(DR/EC) Take 1 capsule by mouth in the morning. 0 05/22/2022 Active [place]-3 Fatty Acids-Fish Oil (1 source) Start: 09-12-2022 take 1 capsule by mouth once daily [place]-3 Fatty Acids-Fish Oil Active 1 CAP PO Daily September 12, 2022 12:00am omeprazole 40 mg delayed release oral capsule (5 sources) Proton Pump Inhibitor Start: 12-07-2021 take 1 capsule by mouth once daily before breakfast omeprazole (PriLOSEC) 40 mg capsule Take 1 capsule (40 mg total) by mouth every morning before breakfast. 0 12/07/2021 Active oseltamivir 75 mg oral capsule (1 source) Neuraminidase Inhibitor Start: 03-09-2023 take 1 capsule by mouth every twelve hours Oseltamivir Phosphate 75 MG 1 capsule Orally Twice a day for 5 day(s) Mar, Active rimegepant 75 mg disintegrating oral tablet (1 source) rimegepant (NURT EC ODT) 75 mg tablet,disintegrating Dissolve on tongue. 0 Active tiZANidine 2 mg oral tablet (2 sources) Central alpha-2 Adrenergic Agonist Start: 11-29-2022 tiZANidine (ZANAFLEX) 2 mg tablet Indications: Fibromyalgia One tab at 8:00 p.m.each night 90 tablet 1 11/29/2022 Active Problems Active Problems Problem Classification Problem Date Documented Da te Episodic/Chronic Abdominal hernia (1 source) Diaphragmatic hernia without obstruction or gangrene Episodic Administrative/social admission (4 sources) Encounter for disability determination; Translations: [ENCOUTER DISABILITY DETERMINATION] Onset: 3 Episodic Anxiety disorders (2 sources) Post-traumatic stress disorder, unspecified; Translations: [Post-traumatic stress disorder, unspecified] Onset: 2 Chronic Coagulation and hemorrhagic disorders (5 sources) Activated protein C resistance; Translations: [Heterozygous Factor V Leiden mutation] Onset: 7 Chronic Disorders of lipid metabolism (6 sources) Hyperlipidemia, unspecified; Translations: [Mixed hyperlipidemia] Onset: 3 Chronic Endometriosis (2 sources) Endometriosis (clinical); Translations: [Endometriosis, unspecified] Onset: 7 06-08-2016 Chronic Esophageal disorders (12 sources) Gastroesophageal reflux disease; Translations: [Gastro-esophageal reflux disease without esophagitis] Onset: 7 Chronic Essential hypertension (3 sources) Essential (primary) hypertension; Translations: [ESSENTIAL PRIMARY HYPERTENSION] Onset: 2 Chronic Genitourinary symptoms and ill-defined conditions (5 sources) Mixed urinary incontinence; Translations: [Mixed incontinence] Onset: 3 02-08-2023 Chronic Headache; including migraine (2 sources) Migraine; Translations: [Migraine, unspecified, not intractable, without status migrainosus] Onset: 7 06-08-2016 Chronic Immunizations and screening for infectious disease (1 source) Contact with and (suspected) exposure to other viral communicable diseases Episodic Mood disorders (2 sources) Major depressive disorder, single episode, unspecified; Translations: [Major depressive disorder. single episode. unspecified] Onset: 3 Chronic Other and ill-defined cerebrovascular disease (2 sources) Intracranial aneurysm; Translations: [Cerebral aneurysm, nonruptured] Onset: 2 07-05-2022 Chronic Other connective tissue disease (2 sources) Fibromyalgia; Translations: [FIBROMYALGIA] Onset: 2 Episodic Other diseases of kidney and ureters (1 source) Other specified disorders of kidney and ureter; Translations: [Other specified disorders of kidney and ureter] Onset: 4 Chronic Other gastrointestinal disorders (1 source) Dysphagia, unspecified; Translations: [Dysphagia, unspecified] Onset: 3 Episodic Other nervous system disorders (3 sources) Chronic pain syndrome; Translations: [CHRONIC PAIN SYNDROME] Onset: 2 Chronic Other nervous system disorders (1 source) Other chronic pain; Translations: [OTHER CHRONIC PAIN] Onset: 2 Chronic Other nutritional; endocrine; and metabolic disorders (1 source) Body mass index (BMI) 40.0-44.9, adult; Translations: [BODY MASS INDEX BMI 40.0-44.9 ADULT] Onset: 2 Chronic Other upper respiratory infections (4 sources) Acute pharyngitis, unspecified; Translations: [ACUTE PHARYNGITIS UNSPECIFIED] Onset: 3 Episodic Substance-related disorders (1 source) Nicotine dependence, cigarettes, uncomplicated; Translations: [NICOTINE DEPEND CIGARETTES UNCOMP] Onset: 2 Chronic Unclassified (3 sources) LOW BACK PAIN, UNSPECIFIED; Translations: [LOW BACK PAIN, UNSPECIFIED] Onset: 2 Unclassified (1 source) Mixed stress and urge urinary incontinence [N39.46] Onset: 4 Past or Other Problems Problem Classification Problem Date Documented Da te Episodic/Chronic Abdominal pain (4 sources) Right upper quadrant pain; Translations: [RIGHT UPPER QUADRANT PAIN] Onset: 12-10-2021 Episodic Biliary tract disease (2 sources) Cholelithiasis without obstruction; Translations: [Calculus of gallbladder without cholecystitis without obstruction] Onset: 04-07-2019 04-07-2019 Episodic Epilepsy; convulsions (2 sources) Seizure; Translations: [Unspecified convulsions] Onset: 06-08-2016 06-08-2016 Episodic Intestinal infection (1 source) Viral intestinal infection, unspecified; Translations: [VIRAL INTESTINAL INFECTION UNSPEC] Onset: 08-01-2021 Episodic Mood disorders (2 sources) Mood disorders Onset: 07-05-2022 07-05-2022 Nausea and vomiting (3 sources) Nausea with vomiting, unspecified; Translations: [NAUSEA WITH VOMITING UNSPECIFIED] Onset: 07-28-2021 Episodic Nonspecific chest pain (7 sources) Other chest pain; Translations: [OTHER CHEST PAIN] Onset: 12-06-2021 Episodic Other connective tissue disease (3 sources) Pain in left hand; Translations: [PAIN IN LEFT HAND] Onset: 09-23-2021 Episodic Other connective tissue disease (2 sources) Fibromyalgia; Translations: [Fibromyalgia] Onset: 06-08-2016 06-08-2016 Episodic Other gastrointestinal disorders (2 sources) Dysphagia; Translations: [Dysphagia, unspecified] Onset: 06-08-2016 06-08-2016 Episodic Other lower respiratory disease (6 sources) Other forms of dyspnea; Translations: [OTHER FORMS OF DYSPNEA] Onset: 01-12-2022 Episodic Other nervous system disorders (1 source) Ataxia, unspecified; Translations: [Ataxia, unspecified] Onset: 12-20-2021 Episodic Other screening for suspected conditions (not mental disorders or infectious disease) (6 sources) Encounter for screening mammogram for malignant neoplasm of breast; Translations: [Encounter for screening for other suspected endocrine disorder] Onset: 11-03-2021 Episodic Residual codes; unclassified (2 sources) Family history of stroke due to aneurysm; Translations: [Family history of stroke] Onset: 03-16-2022 03-16-2022 Episodic Unclassified (1 source) LOW BACK PAIN, UNSPECIFIED; Translations: [LOW BACK PAIN, UNSPECIFIED] Onset: 01-10-2022 Unclassified (1 source) Contact with and (suspected) exposure to covid-19 Z20.822 Results Test Name Value Interpretation Reference Range Facility CBC AND AUTO DIFFon 03-12-19 ABSOLUTE BASOPHIL 0.1 X10E9/L Normal 0.0-0.2 [facility] Comment on above: Performed By: #### C BCA, CMP #### [facility] ([id number]) [address] [place] [address] ABSOLUTE NEUTROPHIL 5.8 X10E9/L Normal 1.5-6.6 [facility] Comment on above: Performed By: #### C BCA, CMP #### [facility] ([id number]) [address] [address] Basophils/100 WBC (Bld) 1.0 % Normal [facility] Comment on above: Performed By: #### C BCA, CMP #### [facility] ([id number]) [address] [place] [address] Eosinophils (Bld) [#/Vol] 0.2 10*3/uL Normal 0.0-0.4 [facility] Comment on above: Performed By: #### C BCA, CMP #### [facility] ([id number]) [address] [address] Eosinophils/100 WBC (Bld) 2.3 % Normal [facility] Comment on above: Performed By: #### C BCA, CMP #### [facility] ([id number]) [address] [place] [address] Erythrocyte distribution width (RBC) [Ratio] 14.3 % Normal 11.5-15.0 [facility] Comment on above: Performed By: #### C MARIAM, CMP #### [facility] ([id number]) [address] [place] [address] Hematocrit (Bld) [Volume fraction] 42.2 % Normal 35-47 [facility] Comment on above: Performed By: #### Christie BECERRA, CMP #### [facility] ([id number]) [address] [place] [address] Hemoglobin (Bld) [Mass/Vol] 14.4 g/dL Normal 11.7-15.5 [facility] Comment on above: Performed By: #### Christie BECERRA, CMP #### [facility] ([id number]) [address] [place] [address] Lymphocytes (Bld) [#/Vol] 2.5 10*3/uL Normal 1.0-3.5 [facility] Comment on above: Performed By: #### Christie BECERRA, CMP #### [facility] ([id number]) [address] [place] [address] Lymphocytes/100 WBC (Bld) 27.1 % Normal [facility] Comment on above: Performed By: #### Christie BECERRA, CMP #### [facility] ([id number]) [address] [place] [address] MCH (RBC) [Entitic mass] 30.0 pg Normal 27-34 [facility] Comment on above: Performed By: #### Christie BCA, CMP #### [facility] ([id number]) [address] [place] [address] MCHC (RBC) [Mass/Vol] 34.1 g/dL Normal 32-36 [facility] Comment on above: Performed By: #### C MARIAM, CMP #### [facility] ([id number]) [address] [place] [address] MCV (RBC) [Entitic vol] 88 fL Normal 80-100 [facility] Comment on above: Performed By: #### C MARIAM, CMP #### [facility] ([id number]) [address] [place] [address] Monocytes (Bld) [#/Vol] 0.6 10*3/uL Normal 0-0.9 [facility] Comment on above: Performed By: #### C MARIAM, CMP #### [facility] ([id number]) [address] [place] [address] Monocytes/100 WBC (Bld) 6.5 % Normal [facility] Comment on above: Performed By: #### C MARIAM, CMP #### [facility] ([id number]) [address] [place] [address] Neutrophils/100 WBC (Bld) 63.1 % Normal [facility] Comment on above: Performed By: #### Christie BECERRA, CMP #### [facility] ([id number]) [address] [place] [address] Platelet mean volume (Bld) [Entitic vol] 8.2 fL Normal 7-12 [facility] Comment on above: Performed By: #### C MARIAM, CMP #### [facility] ([id number]) [address] [place] [address] Platelets (Bld) [#/Vol] 296 10*3/uL Normal 150-450 [facility] Comment on above: Performed By: #### Christie BECERRA, CMP #### [facility] ([id number]) [address] [place] [address] RBC COUNT 4.80 X10E12/L Normal 3.80-5.20 [facility] Comment on above: Performed By: #### C BCA, CMP #### [facility] ([id number]) [address] [place] [address] WBC (Bld) [#/Vol] 9.1 10*3/uL Normal 4.0-11.0 [facility] Comment on above: Performed By: #### C BCA, CMP #### [facility] ([id number]) [address] [place] [address] COMPREHENSIVE METABOLIC PANE Young 03-12-2023 Albumin [Mass/Vol] 3.7 g/dL Normal 3.2-5.3 [facility] Comment on above: Performed By: #### C BCA, CMP #### [facility] ([id number]) [address] [place] [address] ALP [Catalytic activity/Vol] 103 U/L Normal 39-130 [facility] Comment on above: Performed By: #### C BCA, CMP #### [facility] ([id number]) [address] [place] [address] ALT [Catalytic activity/Vol] 12 U/L Normal 0-31 [facility] Comment on above: Performed By: #### C BCA, CMP #### [facility] ([id number]) [address] [place] [address] Anion gap [Moles/Vol] 7 mmol/L Normal 5-15 [facility] Comment on above: Performed By: #### C BCA, CMP #### [facility] ([id number]) [address] [place] [address] AST [Catalytic activity/Vol] 13 U/L Normal 0-41 [facility] Comment on above: Performed By: #### C BCA, CMP #### [facility] ([id number]) [address] [place] [address] Bilirubin [Mass/Vol] 0.8 mg/dL Normal 0.3-1.2 [facility] Comment on above: Performed By: #### C BCA, CMP #### [facility] ([id number]) [address] [place] [address] Calcium [Mass/Vol] 8.7 mg/dL Normal 8.5-10.5 [facility] Comment on above: Performed By: #### C BCA, CMP #### [facility] ([id number]) [address] [place] [address] Chloride [Moles/Vol] 107 mmol/L Normal 98-109 [facility] Comment on above: Performed By: #### C BCA, CMP #### [facility] ([id number]) [address] [place] [address] CO2 [Moles/Vol] 30 mmol/L Normal 22-32 [facility] Comment on above: Performed By: #### C BCA, CMP #### [facility] ([id number]) [address] [place] [address] Creatinine [Mass/Vol] 0.73 mg/dL Normal 0.40-1.00 [facility] Comment on above: Result Comment: METH OD TRACEABLE TO IDMS STANDARD Performed By: #### C BCA, CMP #### [facility] ([id number]) [address] [place] [address] eGFR (CKD-EPI) NON-RACE DEPENDENT >90 Normal >59 [facility] Comment on above: Result Comment: Reported eGFR is based on the CKD-EPI 2020 equation that does not use a race coefficient. Performed By: #### C BCA, CMP #### [facility] ([id number]) [address] [place] [address] Glucose [Mass/Vol] 92 mg/dL Normal 65-99 [facility] Comment on above: Performed By: #### C BCA, CMP #### [facility] ([id number]) [address] [place] [address] Potassium [Moles/Vol] 3.9 mmol/L Normal 3.5-5.0 [facility] Comment on above: Performed By: #### C BCA, CMP #### [facility] ([id number]) [address] [place] [address] Protein [Mass/Vol] 6.4 g/dL Normal 6.0-8.0 [facility] Comment on above: Performed By: #### C BCA, CMP #### [facility] ([id number]) [address] [place] [address] Sodium [Moles/Vol] 144 mmol/L Normal 134-146 [facility] Comment on above: Performed By: #### C BCA, CMP #### [facility] ([id number]) [address] [place] [address] Urea nitrogen [Mass/Vol] 9 mg/dL Normal 5-23 [facility] Comment on above: Performed By: #### C BCA, CMP #### [facility] ([id number]) [address] [place] [address] COVID + FLU Quick Testingon 03-01-2023 SARS-CoV-2 (COVID-19) RNA SARAH+probe Ql (Unsp spec) Negative [facility] [employer] Other COVID + FLU Quick Testing Negative [facility] [employer] Other CT ABDOMEN W WO CONTon 02-06 CT ABDOMEN W WO CONT CT ABDOMEN W WO CONT CT ABDOMEN W WO CONT dated 02/06/2023 8:26 AM. Indication:Renal mass. Comparison: CT abdomen pelvis from 04/07/2019 and renal ultrasound from 10/20/2022. Technique: Noncontrast axial CT of the abdomen from the top of the hemidiaphragms to the superior osseous pelvis was performed. Subsequently after the injection of intravenous nonionic iodinated contrast (in the nephrographic and excretory phase), axial CT of the abdomen, and pelvis was performed from the top of the hemidiaphragms to the superior osseous pelvis. 2D reformats were obtained. All CT scans at this facility use dose modulation, iterative reconstruction, and/or weight based dosing when appropriate to reduce radiation dose to as low as reasonably achievable. Findings: Visualized lung bases are unremarkable. The gallbladder is surgically absent. Calcified granulomas noted in the liver and spleen. Pancreas and adrenal glands are unremarkable. The kidneys enhance symmetrically and are without hydronephrosis. No renal stones. Evaluation for renal mass is somewhat limited due to lack of an ideal nephrographic phase however within these limits no suspicious renal mass is noted. Lack of opacification of the proximal third of the left ureter otherwise the visualized bilateral collecting system and opacified ureters are without suspicious filling defects. No lymphadenopathy is noted in the abdomen. No abdominal aortic aneurysm. Visualized intestines are without obstruction. Small hiatal hernia is noted. No free fluid or free air is noted in the abdomen. 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 No acute or grossly suspicious osseous abnormality. Impression: 1. Although lack of an ideal nephrographic phase somewhat limits this evaluation there is no discrete renal mass. 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 2. Interval small hiatal hernia otherwise unremarkable CT abdomen as above. Finalized by Altagracia Clarke MD on 02/06/2023 4:11 PM Normal [facility] 09-12-2022 L - -------- Specimen: [id number] Received: 09/12/22 Status: KASSIDY Camilo Num: [id number] Spec Type: Surgical Subm Dr: Siva You MD Tissues: A Esophagus Biopsy (ESOPHAGUS BX) Procedures: HE/2, Gross/Micro L4 -------- Age/ Patient Sex Location Account Attending Physician -------- Araceli Francois 42/F [id number] Siva You MD -------- SPEC NUM: [id number] RECD: 09/12/22 STATUS: KASSIDY MICHELLE NUM: [id number] SHANNON: 09/12/22- [facility] DR: Siva You MD ENTERED: 09/12/[address] [facility] [address]: SPEC TYPE: Surgical DEPT: S ORDERED: HE/2, Gross/Micro L4 ORDERED: HE2, Gross/Micro L4 Pathological Diagnosis Esophagus, biopsy: - Squamous esophageal mucosa with mild chronic esophagitis - No columnar mucosa identified - No evidence of eosinophilic esophagitis identified Clinical Information GERD, dysphagia, rule out EOE Gross Description Received in formalin labeled with the patient's name, date of and esophagus biopsy is one christine tissue measuring 0.1 cm. Entirely submitted in one cassette labeled A1. Microscopic Description Two H E slides reviewed. The microscopic examination confirms the diagnosis. -------- Specimen: [id number] Received: 09/12/22 Status: KASSIDY Camilo Num: [id number] Spec Type: Surgical Subm Dr: Siva You MD Tissues: A Esophagus Biopsy (ESOPHAGUS BX) Procedures: HE/2, Gross/Micro L4 -------- Patient: Araceli Francois [id number] (Continued) -------- Specimen: [id number] Received: 09/12/22 (Continued) Signed (signature on file) Rory Jade MD 09/14/22 1155 -------- Specimen: [id number] Received: 09/12/22 Status: KASSIDY Camilo Num: [id number] Spec Type: Surgical Subm Dr: Siva You MD Tissues: A Esophagus Biopsy (ESOPHAGUS BX) Procedures: HE/Alfonso, Gross/Micro L4 -------- Patient: Araceli Francois [id number] (Continued) -------- Specimen: [id number] Received: 09/12/22 (Continued) CPT Codes 50200 -------- -------- Specimen: [id number] Received: 09/12/22 Status: KASSIDY Camilo Num: [id number] Spec Type: Surgical Subm Dr: Siva You MD Tissues: A Esophagus Biopsy (ESOPHAGUS BX) Procedures: HE/2, Gross/Micro L4 -------- Patient: Araceli Francois [id number] (Continued) -------- Signed (signature on file) Rory Jade MD 09/14/22 1155 [facility] [place] 06-14-2022 [facility] [id number] Araceli Francois 1980 Provider Department [place] 06/14/2022 [facility]LL [facility]le Heal Family History Problem Relation Age of Onset Heart attack Father Heart attack Paternal Grandfather Stroke Paternal Grandfather Family Status - Relation Status Age at Father Paternal Grandfather Reason for Visit and Comments: PTSD (Post-Traumatic Stress Disorder) [631326] Depression [32] Anxiety [9] Pain [136] [facility] [place] 05-31-2022 [facility] [id number] Araceli Francois 1980 Provider Department [place] 05/31/20227-LASHELL ESCOTO [facility] Family History Problem Relation Age of Onset Heart attack Father Heart attack Paternal Grandfather Stroke Paternal Grandfather Family Status - Relation Status Age at Father Paternal Grandfather Reason for Visit and Comments: Pain [136] PTSD (Post-Traumatic Stress Disorder) [313178] Normal [facility] Follow-Upon 05-24-2022 Follow-Up [id number] Araceli Francois 1980 Date Provider Department Center 05/24/2022 Cam-QUIRINO ANDRE [facility] Family History Problem Relation Age of Onset Heart attack Father Heart attack Paternal Grandfather Stroke Paternal Grandfather Family Status - Relation Status Age at Father Paternal Grandfather Level of Service:63952 CO OFFICE/OUTPATIENT ESTABLISHED MOD MDM 30-39 MIN Reason for Visit and Comments: Follow-up [385603] - 3 month. Edema [[id number]] Normal [facility] [place] 05-17-2022 [facility] [id number] Araceli Francois 1980 Date Provider Department Center 05/17/2022 215SejalLASHELL ESCOTO [facility] Family History Problem Relation Age of Onset Heart attack Father Heart attack Paternal Grandfather Stroke Paternal Grandfather Family Status - Relation Status Age at Father Paternal Grandfather Reason for Visit and Comments: PTSD (Post-Traumatic Stress Disorder) [840950] Pain [136] Normal [facility] [place] 05-02-2022 [facility] Telemedicine [id number] Araceli Francois 1980 Date Provider Department [facility] Family History Problem Relation Age of Onset Heart attack Father Heart attack Paternal Grandfather Stroke Paternal Grandfather Family Status - Relation Status Age at Father Paternal Grandfather Reason for Visit and Comments: Pain [136] Depression [32] Anxiety [9] Normal [facility] LIPID PROFILEon 04-21-2022 CHOL-HDL RATIO NORM SEE BELOW Normal [facility] Comment on above: Result Comment: 3.3 - 4.4 LOW RISK 4.4 - 7.1 AVERAGE RISK 7.1 - 11.0 MODERATE RISK >11.0 HIGH RISK Performed By: #### L IPID, CMP #### [facility] [address] [address] [address] Edil Gayle Cholesterol [Mass/Vol] 247 mg/dL Critically high <=200 [facility] Comment on above: Performed By: #### L IPID, CMP #### [facility] [address] [address] [address] Edil Gayle Cholesterol in HDL [Mass/Vol] 46 mg/dL Normal 40-60 [facility] Comment on above: Performed By: #### L IPID, CMP #### [facility] [address] [address] [address] Edil Gayle Cholesterol in LDL [Mass/Vol] 180.6 mg/dL Normal [facility] Comment on above: Performed By: #### L IPID, CMP #### [facility] [address] [place] [address] Dr. Edil Gayle Cholesterol.total/C holesterol in HDL [Mass ratio] 5.4 {ratio} Normal [facility] Comment on above: Performed By: #### L IPID, CMP #### [facility] [address] [place] [address] Dr. Edil Gayle HDL NORMAL > or = 60 mg/dl - LO W CARDIOVASCULAR RISK <40 mg/dl - HIGH CARDIOVASCULAR RISK Normal [facility] Comment on above: Performed By: #### L IPID, CMP #### [facility] [address] [address] [address] Edil Gayle LDL CALC NORMAL SEE BELOW Normal [facility] Comment on above: Result Comment: <100 mg/dl OPTIMAL 100 - 129 mg/dl NEAR OR ABOVE OPTIMAL 130 - 159 mg/dl BORDERLINE HIGH 160 - 189 mg/dl HIGH >190 mg/dl VERY HIGH Performed By: #### L IPID, CMP #### [facility] [address] [address] [address] Edil Gayle Triglyceride [Mass/Vol] 102 mg/dL Normal <=150 [facility] Comment on above: Performed By: #### L IPID, CMP #### [facility] [address] [address] [address] Edil Gayle VLDL CALC 20.4 mg/dL Normal [facility] Comment on above: Performed By: #### L IPID, CMP #### [facility] [address] [address] [address] Edil Gayle PROF 14(COMP METB)on 023 Albumin [Mass/Vol] 3.4 g/dL Normal 3.4-5.0 [facility] Comment on above: Performed By: #### L IPID, CMP #### [facility] [address] [address] [address] Edil Gayle Albumin/Globulin [Mass ratio] 0.9 {ratio} Normal [facility] Comment on above: Performed By: #### L IPID, CMP #### [facility] [address] [place] [address] Dr. Edil Gayle ALP [Catalytic activity/Vol] 117 U/L Critically high 46-116 [facility] Comment on above: Performed By: #### L IPID, CMP #### [facility] [address] [place] [address] Dr. Edil Gayle ALT [Catalytic activity/Vol] 25 U/L Normal 14-59 [facility] Comment on above: Performed By: #### L IPID, CMP #### [facility] [address] [address] [address] Edil Gayle Anion gap [Moles/Vol] 11.5 mmol/L Normal [facility] Comment on above: Performed By: #### L IPID, CMP #### [facility] [address] [address] [address] Edil Gayle AST [Catalytic activity/Vol] 16 U/L Normal 15-37 [facility] Comment on above: Performed By: #### L IPID, CMP #### [facility] [address] [address] [address] Edil Gayle Bilirubin [Mass/Vol] 0.4 mg/dL Normal 0.2-1.0 [facility] Comment on above: Performed By: #### L IPID, CMP #### [facility] [address] [address] [address] Edil Gayle Calcium [Mass/Vol] 8.9 mg/dL Normal 8.5-10.1 [facility] Comment on above: Performed By: #### L IPID, CMP #### [facility] [address] [place] [address] Dr. Edil Gayle Chloride [Moles/Vol] 106 mmol/L Normal 98-107 [facility] Comment on above: Performed By: #### L IPID, CMP #### [facility] [address] [address] [address] Edil Gayle CO2 [Moles/Vol] 29.8 mmol/L Normal 21.0-32.0 [facility] Comment on above: Performed By: #### L IPID, CMP #### [facility] [address] [place] [address] Dr. Edil Gayle Creatinine [Mass/Vol] 0.58 mg/dL Normal 0.55-1.02 [facility] Comment on above: Performed By: #### L IPID, CMP #### [facility] [address] [place] [address] Dr. Edil Gayle EGFR-AF CANADIAN >60 Normal >=60 [facility] Comment on above: Performed By: #### L IPID, CMP #### [facility] [address] [place] [address] Dr. Edil Gayle EGFR-NON AF CANADIAN >60 Normal >=60 [facility] Comment on above: Performed By: #### L IPID, CMP #### [facility] [address] [place] [address] Dr. Edil Gayle Globulin (S) [Mass/Vol] 3.6 g/dL Normal [facility] Comment on above: Performed By: #### L IPID, CMP #### [facility] [address] [address] [address] Edil Gayle Glucose [Mass/Vol] 103 mg/dL Normal 74-106 [facility] Comment on above: Performed By: #### L IPID, CMP #### [facility] [address] [address] [address] Edil Gayle Potassium [Moles/Vol] 4.3 mmol/L Normal 3.5-5.1 [facility] Comment on above: Performed By: #### L IPID, CMP #### [facility] [address] [address] [address] Edil Gayle Protein [Mass/Vol] 7.0 g/dL Normal 6.4-8.2 [facility] Comment on above: Performed By: #### L IPID, CMP #### [facility] [address] [address] [address] Edil Gayle Sodium [Moles/Vol] 143 mmol/L Normal 136-145 [facility] Comment on above: Performed By: #### L IPID, CMP #### [facility] [address] [address] [address] Edil Gayle Urea nitrogen [Mass/Vol] 12.0 mg/dL Normal 7.0-18.0 [facility] Comment on above: Performed By: #### L IPID, CMP #### [facility] [address] [address] [address] Edil Gayle Urea nitrogen/Creatinine [Mass ratio] 20.7 mg/mg Normal [facility] Comment on above: Performed By: #### L IPID, CMP #### [facility] [address] [address] [address] Edil Gayle [facility] [place] 04-18-2022 [facility] [id number] Araceli Francois 1980 F Date Provider Department Center 04/18/2022 LASHELL JJ [facility] Isabelle Quintero Family History Problem Relation Age of Onset Heart attack Father Heart attack Paternal Grandfather Stroke Paternal Grandfather Family Status - Relation Status Age at Father Paternal Grandfather Reason for Visit and Comments: PTSD (Post-Traumatic Stress Disorder) [315045] Pain [136] Normal [facility] [place] 04-11-2022 [facility] Telemedicine [id number] Lawrence 1980 F Date Provider Department Center 04/11/2022 NedSejalLASHELL POSADA [facility] Isabelle Heal Family History Problem Relation Age of Onset Heart attack Father Heart attack Paternal Grandfather Stroke Paternal Grandfather Family Status - Relation Status Age at Father Paternal Grandfather Reason for Visit and Comments: PTSD (Post-Traumatic Stress Disorder) [799115] Pain [136] Normal [facility] CULTURE THROATon 04-03-2022 CULTURE THROAT Culture Observations : NORMAL RESPIRATORY JAYLEEN. Normal [facility] Comment on above: Performed By: #### F T4 #### [facility] [address] [place] [address] Dr. Edil Gayle RESPIRATORY PANEL PLUSon Adenovirus Not detected Normal NOT DETECTED [facility] Comment on above: Performed By: #### F T4 #### [facility] [address] [place] [address] Dr. Edil Monte. Parapertusis Not detected Normal NOT DETECTED [facility] Comment on above: Performed By: #### F T4 #### [facility] [address] [place] [address] Dr. Edil Monte. Pertussis Not detected Normal NOT DETECTED [facility] Comment on above: Performed By: #### F T4 #### [facility] [address] [place] [address] Dr. Edil Gayel Chlamydia Pneumoniae Not detected Normal NOT DETECTED [facility] Comment on above: Performed By: #### F T4 #### [facility] [address] [place] [address] Dr. Edil Gayle Coronavirus 229E Not detected Normal NOT DETECTED [facility] Comment on above: Performed By: #### F T4 #### [facility] [address] [place] [address] Dr. Edil Gayle Coronavirus HKU1 Not detected Normal NOT DETECTED [facility] Comment on above: Performed By: #### F T4 #### [facility] [address] [place] [address] Dr. Edil Gayle Coronavirus NL63 Not detected Normal NOT DETECTED [facility] Comment on above: Performed By: #### F T4 #### [facility] [address] [place] [address] Dr. Edil Gayle Coronavirus OC43 Not detected Normal NOT DETECTED [facility] Comment on above: Performed By: #### F T4 #### [facility] [address] [address] [address] Edil Gayle Influenza A H1 Not detected Normal NOT DETECTED [facility] Comment on above: Performed By: #### F T4 #### [facility] [address] [address] [address] Edil Gayle Influenza A H1 2009 Not detected Normal NOT DETECTED [facility] Comment on above: Performed By: #### F T4 #### [facility] [address] [place] [address] Dr. Edil Gayle Influenza A H3 Not detected Normal NOT DETECTED [facility] Comment on above: Performed By: #### F T4 #### [facility] [address] [place] [address] Dr. Edil Gayle Influenza B Not detected Normal NOT DETECTED [facility] Comment on above: Performed By: #### F T4 #### [facility] [address] [place] [address] Dr. Edil Gayle Metapneumovirus Not detected Normal NOT DETECTED [facility] Comment on above: Performed By: #### F T4 #### [facility] [address] [place] [address] Dr. Edil Gayle Mycoplas. Pneumoniae Not detected Normal NOT DETECTED [facility] Comment on above: Performed By: #### F T4 #### [facility] [address] [address] [address] Edil Gayle Parainfluenza 1 Not detected Normal NOT DETECTED [facility] Comment on above: Performed By: #### F T4 #### [facility] [address] [place] [address] Dr. Edil Gayle Parainfluenza 2 Not detected Normal NOT DETECTED [facility] Comment on above: Performed By: #### F T4 #### [facility] [address] [place] [address] Dr. Edil Gayle Parainfluenza 3 Not detected Normal NOT DETECTED [facility] Comment on above: Performed By: #### F T4 #### [facility] [address] [place] [address] Dr. Edil Gayle Parainfluenza 4 Not detected Normal NOT DETECTED [facility] Comment on above: Performed By: #### F T4 #### [facility] [address] [place] [address] Dr. Edil Gayle Rhino/Enterovirus Not detected Normal NOT DETECTED [facility] Comment on above: Performed By: #### F T4 #### [facility] [address] [place] [address] Dr. Edil Gayle RP2 Header 1 RESPIRATORY PANEL: VIRUSES Normal [facility] Comment on above: Performed By: #### F T4 #### [facility] [address] [place] [address] Dr. Edil Gayle RP2 Header 2 RESPIRATORY PANEL: BACTERIA Normal [facility] Comment on above: Performed By: #### F T4 #### [facility] [address] [place] [address] Dr. Edil Gayle RSV Not detected Normal NOT DETECTED [facility] Comment on above: Performed By: #### F T4 #### [facility] [address] [place] [address] Dr. Edil Gayle SARS-CoV-2 (COVID-19) RNA SARAH+probe Ql (Unsp spec) Not detected Normal NOT DETECTED [facility] Comment on above: Performed By: #### F T4 #### [facility] [address] [place] [address] Dr. Edil Gayle STREPT SCREENon 04-03-2022 STREP SCREEN A Negative Normal NEGATIVE [facility] Comment on above: Performed By: #### F T4 #### [facility] [address] [place] [address] Dr. Edil Gayle ECHOCARDIO M/2D COMPLETEon 1 04-03-2021 ECHOCARDIO M/2D COMPLETE Patient: ARACELI FRANCOIS Exam Date: 01/31/2022 : 1980 Gender:F Ordering : QUIRINO ANDRE Admission #: [id number] Family : Order #: [id number] CLICK HERE TO VIEW EXAM ECHOCARDIOGRAM REPORT PROCEDURE: CARDIO PULMONARY ECHOCARDIO M/2D COMP INDICATIONS: Atypical chest pain, MCKEON COMPARISON: None. DESCRIPTION: COMPLETE ECHOCARDIOGRAM Real-time transthoracic echocardiography with 2D, M-mode, spectral and color flow Doppler performed. QUALITY: Technical quality was adequate. LEFT VENTRICLE: Normal chamber size. Mild concentric left ventricular hypertrophy. LV EF: Global left ventricular systolic function is normal. Visual estimation of left ventricular ejection fraction is 55-60% DIASTOLIC: Normal diastolic function. ATRIAL SEPTUM: Inadequately seen. LEFT ATRIUM: Normal chamber size. RIGHT ATRIUM: Normal chamber size. RIGHT VENTRICLE: Normal chamber size. Normal right ventricular systolic function. TRICUSPID VALVE: Normal mobility and thickness. No stenosis with trivial regurgitation. No evidence of pulmonary hypertension. RVSP 23mmHg MITRAL VALVE: Normal mobility and thickness. No mitral valve prolapse. No evidence of mitral valve stenosis. There is no mitral annular calcification. Trivial mitral regurgitation. AORTIC VALVE: Normal trileaflet appearance. No visible sclerosis. Normal leaflet mobility. No evidence of aortic valve stenosis. No aortic regurgitation. AORTIC ROOT: Normal diameter and appearance. PULMONIC VALVE: Normal thickness and mobility. No stenosis. No regurgitation. PERICARDIUM: No evidence of pericardial effusion. IVC: Collapses with inspirations. Normal size. CONCLUSION: Global left ventricular systolic function is normal; visually estimated ejection fraction is 55 to 60%. No significant wall motion abnormalities. Mild left ventricular hypertrophy. The right ventricle is normal in size and systolic function. No significant valvular abnormalities. Adult Echocardiography Procedure Report Left Ventricle Left Atrium Mitral Valve Right Ventricle Aorta Aortic Valve Tricuspid Valve Pulmonic Valve Right Atrium Dictated by: Dhruv Borges M.D. on 02/07/2022 at 09:41 Approved by: Dhruv Borges M.D. on 02/07/2022 at 09:43 Normal [facility] NM STRESS/REST MULTIon 01-31 NM STRESS/REST MULTI Patient: ARACELI FRANCOIS Exam Date: 01/31/2022 : 1980 Gender:F Ordering : QUIRINO ANDRE Admission #: [id number] Family : Order #: [id number] CLICK HERE TO VIEW EXAM RADIOLOGY REPORT PROCEDURE: RADIONUCLIDE IMAGING STRESS/REST MULTI COMPARISON: None. INDICATIONS: Dyspnea on exertion TECHNIQUE: Exam Description: Stress/Rest one day protocol gated SPECT Rest Imagin.4 mCi Tc-99m Cardiolite IV on 01/31/2022 Stress Imaging 29.4 mCi Tc-99m Cardiolite IV on 01/31/2022 Exercise Protocol: 0.4 mg Lexiscan given IV Heart Rate (bpm): Rest: 75 Max: 116 PMHR: 65 Blood Pressure: Rest: 122/80 Max: 122/80 Symptoms: Rest and peak stress ECG findings were normal and the exercise portion of the study was normal per attending physician Dr. Bailey . For more details please see separate cardiac stress test report. FINDINGS: QUALITY OF STUDY: Good. PERFUSION DEFECT: None. LOCATION: N/A SIZE: N/A. SEVERITY: N/A. TYPE: WALL MOTION: Normal. LV SIZE: Normal. 58 mL. TID / TCD: None; 0.8 LVEF: Normal. Calculated EF 84%. SUMMARY: Myocardial perfusion imaging study is NORMAL. CONCLUSION: 1. Normal myocardial perfusion scan, no reversible ischemia 2. Normal exercise test Dictated by: Marce Lyn MD on 02/02/2022 at 11:40 Approved by: Marce Lyn MD on 02/02/2022 at 11:41 Normal [facility] MR head/brain wo/w conon MR head/brain wo/w con [facility] [place] [address] MRI Report Signed Patient: Araceli Francois MR#: [id number] : 1980 Acct:[id number] Age/Sex: 41 / F ADM Date: 12/20/21 Loc: MR Room: Type: [facility] Attending Dr: Ron Wallace DO Copies to: Joe Wallace DO Ordering Provider: Joe Wallace DO Date of Service: 12/20/21 MR/MR head/brain wo/w con: R27 MR head/brain wo/w con 12/20/2021 9:10 PM SIGN AND SYMPTOMS: Ataxia, headaches, memory loss PROTOCOL: Multiplanar multisequence MR images of brain were obtained with and without IV contrast CONTRAST: 20 mL of intravenous ProHance COMPARISON: None. FINDINGS: Extra axial spaces: Age appropriate. Hemorrhage: None. Ventricular system: Within normal limits. Basal cisterns: Within normal limits and not effaced. Cerebral parenchyma: Normal in signal. Midline shift: None.. Cerebellum: Within normal limits. Brainstem: Within normal limits. OTHER: Calvarium: Normal marrow signal. 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 This projects laterally from the bifurcation. There may be a second 2 mm saccular aneurysm along the left MCA bifurcation which is poorly visualized. Further evaluation with CT angiography is recommended for better assessment. Visualized Paranasal sinuses: Within normal limits. Visualized Orbits: Within normal limits. Visualized upper cervical spine: Within normal limits. Sella and skull base: Within normal limits. MR/MR head/brain wo/w con IMPRESSION: No acute intracranial pathology or abnormal postcontrast enhancement. 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 This projects laterally from the bifurcation. There may be a second 2 mm saccular aneurysm along the left MCA bifurcation which is poorly visualized. Further evaluation with CT angiography is recommended for better assessment. Impression dictated by: Efrain Chapman M.D.12/21/2021 8:39 AM Dictation Location: [place] [address] Transcribed By: [facility] 12/21/21838 Dictated By: Efrain Chapman II, MD 12/21/21815 Signed By: 12/21/21838 [facility] XR LSPINE W_OBLS AND FLEX_EX Ton 12-21-2021 XR LSPINE W_OBLS AND FLEX_EXT EXAMINATION: XR LSPINE W_OBLS AND FLEX_EXT HISTORY: Low back pain COMPARISON: No relevant comparison available. FINDINGS: BONES: Normal alignment with no acute fracture or spondylolisthesis. Mild degenerative spondylosis DISC SPACES: Normal. No significant disc height narrowing, subluxation, or endplate abnormality. PARASPINOUS: Negative. No paraspinous abnormality is seen. OTHER: No transient spondylolisthesis with flexion or extension IMPRESSION: Mild degenerative changes with no dynamic instability Electronically authenticated by: MARCE LYN Date: 2021-12-21 07:11 Normal [facility] US SINGLE QUAD RT UPPERon US SINGLE QUAD RT UPPER EXAMINATION: US SINGLE QUAD RT UPPER HISTORY: Right upper quadrant pain COMPARISON: No relevant comparison available. FINDINGS: The liver is normal in size, contour and echotexture with no focal mass. Hepatopedal flow in the main portal vein. The gallbladder is not visualized. Negative sonographic Osorio sign. The common bile duct measures 3.9 mm The pancreas is normal The right kidney is normal IMPRESSION: No acute abnormality Electronically authenticated by: MARCE LYN Date: 2021-12-11 08:32 Normal [facility] XR CHEST 2 Von 12-06-2021 XR CHEST 2 V EXAMINATION: XR CHES T 2 V HISTORY: Chest pain COMPARISON: 05/27/2020 TECHNIQUE: AP portable erect FINDINGS: LUNGS: No significant pulmonary parenchymal abnormalities. VASCULATURE: No increased pulmonary vasculature. PLEURA: No pneumothorax, effusion, or pleural thickening. CARDIAC: No cardiomegaly or cardiac silhouette abnormality. MEDIASTINUM: No visible mass or adenopathy. BONES: No fracture or visible bone lesion. OTHER: Negative. IMPRESSION: No acute disease. Electronically authenticated by: MARCE LYN Date: 2021-12-06 15:35 Normal [facility] MG MAMM SCREEN 3D TISHA CADon 11-08-2021 MG MAMM SCREEN 3D TISHA CAD Patient: ARACELI FRANCOIS Exam Date: 11/08/2021 : 1980 Gender:F Ordering : [employer]AD [employer] MEDICAID-C Admission #: [id number] Family : Order #: [id number] CLICK HERE TO VIEW EXAM RADIOLOGY REPORT PROCEDURE: MAMMOGRAM SCREENING 3D BILATERAL CAD COMPARISON: MG MAMM SCREEN 3D TISHA CAD, 07/19/2020. INDICATIONS: Screening mammography Calculator Name NCI Breast Cancer Risk Assessment Tool 5 Year Breast Cancer Risk 0.50% Lifetime Breast Cancer Risk 6.50% Personal Breast Cancer No Personal Ovarian Cancer No Treatments None Family Cancers None LOCATION: [facility] BREAST COMPOSITION: Scattered areas fibroglandular density. FINDINGS: DIAGNOSTIC CATEGORY 2--BENIGN FINDING: Scattered benign-appearing calcifications are present. Scattered benign-appearing lymph nodes are present. RIGHT BREAST: No significant suspicious finding. LEFT BREAST: No significant suspicious finding. RECOMMENDATIONS: ROUTINE MAMMOGRAM AND CLINICAL EVALUATION IN 12 MONTHS. PLEASE NOTE: A NORMAL MAMMOGRAM DOES NOT EXCLUDE THE POSSIBILITY OF BREAST CANCER. A CLINICALLY SUSPICIOUS PALPABLE LUMP SHOULD BE BIOPSIED. Dictated by: Marce Lyn MD on 11/09/2021 at 07:52 Approved by: Marce Lyn MD on 11/09/2021 at 07:53 Normal [facility] CBC AUTO DIFFon 11-01-2021 BASO # 0.1 103/ul Normal 0.0-0.1 [facility] Comment on above: Performed By: #### F T4 #### [facility] [address] [place] [address] Dr. Edil Gayle Basophils/100 WBC (Bld) 1.2 % Normal 0.2-2.0 [facility] Comment on above: Performed By: #### F T4 #### [facility] [address] [place] [address] Dr. Edil Gayle EO # 0.3 103/ul Normal 0.0-0.7 [facility] Comment on above: Performed By: #### F T4 #### [facility] [address] [place] [address] Dr. Edil Gayle Eosinophils/100 WBC (Bld) 2.7 % Normal 0.9-7.0 [facility] Comment on above: Performed By: #### F T4 #### [facility] [address] [place] [address] Dr. Edil Gayle Erythrocyte distribution width (RBC) [Ratio] 12.8 % Normal 11.0-15.0 [facility] Comment on above: Performed By: #### F T4 #### [facility] [address] [place] [address] Dr. Edil Gayle Hematocrit (Bld) [Volume fraction] 46.5 % Normal 36.0-48.0 [facility] Comment on above: Performed By: #### F T4 #### [facility] [address] [place] [address] Dr. Edil Gayle Hemoglobin (Bld) [Mass/Vol] 15.5 g/dL Normal 12.0-16.0 [facility] Comment on above: Performed By: #### F T4 #### [facility] [address] [place] [address] Dr. Edil Gayle IG # 0.02 10e3/ul Normal 0.00-0.03 [facility] Comment on above: Performed By: #### F T4 #### [facility] [address] [place] [address] Dr. Edil Gayle IG % 0.2 % Normal 0.0-0.5 [facility] Comment on above: Performed By: #### F T4 #### [facility] [address] [place] [address] Dr. Edil Gayle LYMPH # 2.1 103/ul Normal 1.2-3.8 [facility] Comment on above: Performed By: #### F T4 #### [facility] [address] [place] [address] Dr. Edil Gayle Lymphocytes/100 WBC (Bld) 20.4 % Critically low 20.5-60.0 [facility] Comment on above: Performed By: #### F T4 #### [facility] [address] [place] [address] Dr. Edil Gayle MANUAL DIFF REQ NO Normal [facility] Comment on above: Performed By: #### F T4 #### [facility] [address] [place] [address] Dr. Edil Gayle MCH (RBC) [Entitic mass] 30.3 pg Normal 26.7-34.0 [facility] Comment on above: Performed By: #### F T4 #### [facility] [address] [place] [address] Dr. Edil Gayle MCHC (RBC) [Mass/Vol] 33.3 g/dL Normal 29.9-35.2 [facility] Comment on above: Performed By: #### F T4 #### [facility] [address] [place] [address] Dr. Edil Gayle MCV (RBC) [Entitic vol] 90.8 fL Normal 81.0-99.0 [facility] Comment on above: Performed By: #### F T4 #### [facility] [address] [place] [address] Dr. Edil Gayle MONO # 0.5 103/ul Normal 0.3-0.8 [facility] Comment on above: Performed By: #### F T4 #### [facility] [address] [place] [address] Dr. Edil Gayle Monocytes/100 WBC (Bld) 5.2 % Normal 1.7-12.0 [facility] Comment on above: Performed By: #### F T4 #### [facility] [address] [place] [address] Dr. Edil Gayle NEUT # 7.3 103/ul Critically high 1.4-6.5 [facility] Comment on above: Performed By: #### F T4 #### [facility] [address] [place] [address] Dr. Edil Gayle Neutrophils/100 WBC (Bld) 70.3 % Normal 43.0-75.0 [facility] Comment on above: Performed By: #### F T4 #### [facility] [address] [place] [address] Dr. Edil Gayle Platelet mean volume (Bld) [Entitic vol] 8.8 fL Critically low 9.5-13.5 [facility] Comment on above: Performed By: #### F T4 #### [facility] [address] [place] [address] Dr. Edil Gayle PLT 294 103/ul Normal 150-450 [facility] Comment on above: Performed By: #### F T4 #### [facility] [address] [place] [address] Dr. Edil Gayle RBC 5.12 106/ul Normal 4.20-5.40 [facility] Comment on above: Performed By: #### F T4 #### [facility] [address] [place] [address] Dr. Edil Gayle WBC 10.3 103/ul Normal 4.0-11.0 [facility] Comment on above: Performed By: #### F T4 #### [facility] [address] [place] [address] Dr. Edil Gayle FREE T4on 11-01-2021 Free T4 [Mass/Vol] 0.88 ng/dL Normal 0.76-1.46 [facility] Comment on above: Performed By: #### F T4 #### [facility] [address] [place] [address] [address] Edil Gayle GLYCOHEMOGLOBIN A1Con 2021 ADA RECOMMENDATION SEE BELOW Normal [facility] Comment on above: Result Comment: ADA RECOMMENDED LIMIT 4.0 - 6.0 ADA THERAPEUTIC TARGET < 7.0 ACTION SUGGESTED > 7.0 Performed By: #### A 1C #### [facility] [address] [place] [address] [address] Edil Gayle Glucose [Mass/Vol] 108 mg/dL Normal [facility] Comment on above: Performed By: #### A 1C #### [facility] [address] [place] [address] Dr. Edil Gayle HbA1c (Bld) [Mass fraction] 5.4 % Normal 4.5-6.2 [facility] Comment on above: Performed By: #### A 1C #### [facility] [address] [place] [address] [address] Edil Gayle LIPID PROFILEon 11-01-2021 CHOL-HDL RATIO NORM SEE BELOW Normal [facility] Comment on above: Result Comment: 3.3 - 4.4 LOW RISK 4.4 - 7.1 AVERAGE RISK 7.1 - 11.0 MODERATE RISK >11.0 HIGH RISK Performed By: #### T SH, CMP, LIPID #### [facility] [address] [place] [address] [address] Edil Gayle Cholesterol [Mass/Vol] 246 mg/dL Critically high <=200 [facility] Comment on above: Performed By: #### T SH, CMP, LIPID #### [facility] [address] [place] [address] [address] Edil Gayle Cholesterol in HDL [Mass/Vol] 48 mg/dL Normal 40-60 [facility] Comment on above: Performed By: #### T SH, CMP, LIPID #### [facility] [address] [place] [address] [address] Edil Gayle Cholesterol in LDL [Mass/Vol] 172.6 mg/dL Normal [facility] Comment on above: Performed By: #### T SH, CMP, LIPID #### [facility] [address] [place] [address] Dr. Edil Gayle Cholesterol.total/C holesterol in HDL [Mass ratio] 5.1 {ratio} Normal [facility] Comment on above: Performed By: #### T SH, CMP, LIPID #### [facility] [address] [place] [address] Dr. Edil Gayle HDL NORMAL > or = 60 mg/dl - LO W CARDIOVASCULAR RISK <40 mg/dl - HIGH CARDIOVASCULAR RISK Normal [facility] Comment on above: Performed By: #### T SH, CMP, LIPID #### [facility] [address] [place] [address] Dr. Edil Gayle LDL CALC NORMAL SEE BELOW Normal [facility] Comment on above: Result Comment: <100 mg/dl OPTIMAL 100 - 129 mg/dl NEAR OR ABOVE OPTIMAL 130 - 159 mg/dl BORDERLINE HIGH 160 - 189 mg/dl HIGH >190 mg/dl VERY HIGH Performed By: #### T SH, CMP, LIPID #### [facility] [address] [place] [address] [address] Edil Gayle Triglyceride [Mass/Vol] 127 mg/dL Normal <=150 [facility] Comment on above: Performed By: #### T ANA MARIA, CMP, LIPID #### [facility] [address] [place] [address] Dr. Edil Gayle VLDL CALC 25.4 mg/dL Normal [facility] Comment on above: Performed By: #### T SH, CMP, LIPID #### [facility] [address] [place] [address] [address] Edil Gayle PROF 14(COMP METB)on 022 Albumin [Mass/Vol] 3.6 g/dL Normal 3.4-5.0 [facility] Comment on above: Performed By: #### T SH, CMP, LIPID #### [facility] [address] [place] [address] Dr. Edil Gayle Albumin/Globulin [Mass ratio] 1.0 {ratio} Normal [facility] Comment on above: Performed By: #### T SH, CMP, LIPID #### [facility] [address] [place] [address] [address] Edil Gayle ALP [Catalytic activity/Vol] 109 U/L Normal 46-116 [facility] Comment on above: Performed By: #### T SH, CMP, LIPID #### [facility] [address] [place] [address] [address] Edil Gayle ALT [Catalytic activity/Vol] 21 U/L Normal 14-59 [facility] Comment on above: Performed By: #### T ANA MARIA, CMP, LIPID #### [facility] [address] [place] [address] Dr. Edil Gayle Anion gap [Moles/Vol] 10.9 mmol/L Normal [facility] Comment on above: Performed By: #### T ANA MARIA, CMP, LIPID #### [facility] [address] [place] [address] Dr. Edil Gayle AST [Catalytic activity/Vol] 15 U/L Normal 15-37 [facility] Comment on above: Performed By: #### T ANA MARIA, CMP, LIPID #### [facility] [address] [place] [address] Dr. Edil Gayle Bilirubin [Mass/Vol] 0.8 mg/dL Normal 0.2-1.0 [facility] Comment on above: Performed By: #### T SH, CMP, LIPID #### [facility] [address] [place] [address] Dr. Edil Gayle Calcium [Mass/Vol] 9.3 mg/dL Normal 8.5-10.1 [facility] Comment on above: Performed By: #### T SH, CMP, LIPID #### [facility] [address] [place] [address] Dr. Edil Gayle Chloride [Moles/Vol] 104 mmol/L Normal 98-107 [facility] Comment on above: Performed By: #### T SH, CMP, LIPID #### [facility] [address] [place] [address] [address] Edil Gayle CO2 [Moles/Vol] 30.6 mmol/L Normal 21.0-32.0 [facility] Comment on above: Performed By: #### T SH, CMP, LIPID #### [facility] [address] [place] [address] [address] Edil Gayle Creatinine [Mass/Vol] 0.77 mg/dL Normal 0.55-1.02 [facility] Comment on above: Performed By: #### T SH, CMP, LIPID #### [facility] [address] [place] [address] [address] Edil Galye EGFR-AF CANADIAN >60 Normal >=60 [facility] Comment on above: Performed By: #### T SH, CMP, LIPID #### [facility] [address] [place] [address] [address] Edil Gayle EGFR-NON AF CANADIAN >60 Normal >=60 [facility] Comment on above: Performed By: #### T SH, CMP, LIPID #### [facility] [address] [place] [address] [address] Edil Gayle Globulin (S) [Mass/Vol] 3.7 g/dL Normal [facility] Comment on above: Performed By: #### T SH, CMP, LIPID #### [facility] [address] [place] [address] Dr. Edil Gayle Glucose [Mass/Vol] 106 mg/dL Normal 74-106 [facility] Comment on above: Performed By: #### T SH, CMP, LIPID #### [facility] [address] [address] [address] Edil Gayle Potassium [Moles/Vol] 4.5 mmol/L Normal 3.5-5.1 [facility] Comment on above: Performed By: #### T SH, CMP, LIPID #### [facility] [address] [address] [address] Edil Gayle Protein [Mass/Vol] 7.3 g/dL Normal 6.4-8.2 [facility] Comment on above: Performed By: #### T SH, CMP, LIPID #### [facility] [address] [place] [address] Dr. Edil Gayle Sodium [Moles/Vol] 141 mmol/L Normal 136-145 [facility] Comment on above: Performed By: #### T SH, CMP, LIPID #### [facility] [address] [place] [address] Dr. Edil Gayle Urea nitrogen [Mass/Vol] 11.0 mg/dL Normal 7.0-18.0 [facility] Comment on above: Performed By: #### T SH, CMP, LIPID #### [facility] [address] [place] [address] Dr. Edil Gayle Urea nitrogen/Creatinine [Mass ratio] 14.3 mg/mg Normal [facility] Comment on above: Performed By: #### T SH, CMP, LIPID #### [facility] [address] [place] [address] Dr. Edil Gayle TSHon 11-01-2021 TSH 2.620 uIU/mL Normal 0.358-3.740 [facility] Comment on above: Performed By: #### T SH, CMP, LIPID #### [facility] [address] [place] [address] Dr. Edil Gayle CBC AUTO DIFFon 07-28-2021 BASO # 0.1 103/ul Normal 0.0-0.1 [facility] Comment on above: Performed By: #### C BC #### [facility] [address] [place] [address] Dr. Edil Gayle Basophils/100 WBC (Bld) 1.0 % Normal 0.2-2.0 [facility] Comment on above: Performed By: #### C BC #### [facility] [address] [place] [address] Dr. Edil Gayle EO # 0.3 103/ul Normal 0.0-0.7 [facility] Comment on above: Performed By: #### C BC #### [facility] [address] [place] [address] Dr. Edil Gayle Eosinophils/100 WBC (Bld) 2.9 % Normal 0.9-7.0 [facility] Comment on above: Performed By: #### C BC #### [facility] [address] [place] [address] Dr. Edil Gayle Erythrocyte distribution width (RBC) [Ratio] 13.0 % Normal 11.0-15.0 [facility] Comment on above: Performed By: #### C BC #### [facility] [address] [place] [address] Dr. Edil Gayle Hematocrit (Bld) [Volume fraction] 46.3 % Normal 36.0-48.0 [facility] Comment on above: Performed By: #### C BC #### [facility] [address] [place] [address] Dr. Edil Gayle Hemoglobin (Bld) [Mass/Vol] 15.4 g/dL Normal 12.0-16.0 [facility] Comment on above: Performed By: #### C BC #### [facility] [address] [place] [address] Dr. Edil Gayle IG # 0.03 10e3/ul Normal 0.00-0.03 [facility] Comment on above: Performed By: #### C BC #### [facility] [address] [place] [address] Dr. Edil Gayle IG % 0.3 % Normal 0.0-0.5 [facility] Comment on above: Performed By: #### C BC #### [facility] [address] [place] [address] Dr. Edil Gayle LYMPH # 2.4 103/ul Normal 1.2-3.8 [facility] Comment on above: Performed By: #### C BC #### [facility] [address] [place] [address] Dr. Edil Gayle Lymphocytes/100 WBC (Bld) 22.4 % Normal 20.5-60.0 [facility] Comment on above: Performed By: #### C BC #### [facility] [address] [place] [address] Dr. Edil Gayle MANUAL DIFF REQ NO Normal [facility] Comment on above: Performed By: #### C BC #### [facility] [address] [address] [address] Edil Gayle MCH (RBC) [Entitic mass] 30.9 pg Normal 26.7-34.0 [facility] Comment on above: Performed By: #### C BC #### [facility] [address] [place] [address] Dr. Edil Gayle MCHC (RBC) [Mass/Vol] 33.3 g/dL Normal 29.9-35.2 [facility] Comment on above: Performed By: #### C BC #### [facility] [address] [place] [address] Dr. Edil Gayle MCV (RBC) [Entitic vol] 93.0 fL Normal 81.0-99.0 [facility] Comment on above: Performed By: #### C BC #### [facility] [address] [place] [address] Dr. Edil Gayle MONO # 0.7 103/ul Normal 0.3-0.8 [facility] Comment on above: Performed By: #### C BC #### [facility] [address] [place] [address] Dr. Edil Gayle Monocytes/100 WBC (Bld) 6.9 % Normal 1.7-12.0 [facility] Comment on above: Performed By: #### C BC #### [facility] [address] [place] [address] Dr. Edil Gayle NEUT # 7.1 103/ul Critically high 1.4-6.5 [facility] Comment on above: Performed By: #### C BC #### [facility] [address] [place] [address] Dr. Edil Gayle Neutrophils/100 WBC (Bld) 66.5 % Normal 43.0-75.0 [facility] Comment on above: Performed By: #### C BC #### [facility] [address] [place] [address] Dr. Edil Gayle Platelet mean volume (Bld) [Entitic vol] 9.4 fL Critically low 9.5-13.5 [facility] Comment on above: Performed By: #### C BC #### [facility] [address] [place], [place] [address] Dr. Edil Gayle PLT 247 103/ul Normal 150-450 [facility] Comment on above: Performed By: #### C BC #### [facility] [address] [place], [place] [address] Dr. Edil Gayle RBC 4.98 106/ul Normal 4.20-5.40 [facility] Comment on above: Performed By: #### C BC #### [facility] [address] [place], [place] [address] Dr. Edil Gayle WBC 10.7 103/ul Normal 4.0-11.0 [facility] Comment on above: Performed By: #### C BC #### [facility] [address] [place] [address] ABD/PELV W CONon 07-29-[address] ABD/PELV W CON EXAMINATION: CT ABD/PELV W CON HISTORY: UNSPECIFIED ABDOMINAL PAIN COMPARISON: 05/27/2020 TECHNIQUE: Axial CT images were obtained of the abdomen and pelvis with intravenous contrast. Multiplanar reconstructions were performed. Dose reduction techniques were achieved by using automated exposure control and/or adjustment of mA and/or kV according to patient size and/or use of iterative reconstruction technique. ABDOMEN/PELVIS FINDINGS: Lower Chest: Unremarkable. Liver: Normal enhancement and contour. Biliary/Gallbladder: Prior cholecystectomy. Pancreas: Unremarkable. Spleen: Unremarkable. Adrenal Glands: Unremarkable. Kidneys: Unremarkable. Gastrointestinal/Alejandrina toneum: No acute abnormality. The appendix is unremarkable. No free air or free fluid. Vascular: Unremarkable. Lymph Nodes: No enlarged lymph nodes by CT size criteria. Pelvic Organs: Prior hysterectomy. Bladder: Unremarkable. Bones: No acute osseous abnormality. Soft tissues: Unremarkable. IMPRESSION: 1. No acute abnormality of the abdomen and pelvis. Electronically authenticated by: MICHELLE HENRY Date: 2021-07-28 11:03 Normal [facility] ER URINE PROFILEon 2 Bilirubin Ql (U) Negative Normal NEGATIVE [facility] Comment on above: Performed By: #### E RUR #### [facility] [address] [place] [address] Dr. Edil Gayle Clarity (U) CLEAR Normal CLEAR [facility] Comment on above: Performed By: #### E RUR #### [facility] [address] [place] [address] Dr. Edil Gayle Color (U) YELLOW Normal YELLOW [facility] Comment on above: Performed By: #### E RUR #### [facility] [address] [place] [address] Dr. Edil NAQVI A micrscopic examination will be performed if indicated. Normal [facility] Comment on above: Performed By: #### E RUR #### [facility] [address] [place] [address] Dr. Edil Gayle Glucose Ql (U) Negative Normal NEGATIVE [facility] Comment on above: Performed By: #### E RUR #### [facility] [address] [place] [address] Dr. Edil Gayle Hemoglobin Ql (U) Negative Normal NEGATIVE [facility] Comment on above: Performed By: #### E RUR #### [facility] [address] [place] [address] Dr. Edil Gayle Ketones Ql (U) Negative Normal NEGATIVE [facility] Comment on above: Performed By: #### E RUR #### [facility] [address] [place] [address] Dr. Edil Gayle LEUKOCYTES Negative Normal NEGATIVE [facility] Comment on above: Performed By: #### E RUR #### [facility] [address] [place] [address] Dr. Edil Gayle Nitrite Ql (U) Negative Normal NEGATIVE [facility] Comment on above: Performed By: #### E RUR #### [facility] [address] [place] [address] Dr. Edil Gayle pH (U) 6.0 [pH] Normal 5-9 [facility] Comment on above: Performed By: #### E RUR #### [facility] [address] [place] [address] Dr. Edil Gayle SPEC GRAVITY 1.030 Abnormal 1.005-<=1.025 [facility] Comment on above: Performed By: #### E RUR #### [facility] [address] [place] [address] Dr. Edil Gayle UA PROTEIN Negative Normal NEGATIVE/ TRACE [facility] Comment on above: Performed By: #### E RUR #### [facility] [address] [place] [address] Dr. Edil Gayle UR MICRO IND NOT INDICATED Normal [facility] Comment on above: Performed By: #### E RUR #### [facility] [address] [place] [address] Dr. Edil Gayle Urobilinogen Qn (U) 0.2 {Tee'U}/dL Normal 0.2 - 1. 0 [facility] Comment on above: Performed By: #### E RUR #### [facility] [address] [place] [address] Dr. Edil Gayle PROF CHEM 8 (BAS METB)on Anion gap [Moles/Vol] 9.8 mmol/L Normal [facility] Comment on above: Performed By: #### F T4 #### [facility] [address] [place] [address] Dr. Edil Gayle Calcium [Mass/Vol] 8.4 mg/dL Critically low 8.5-10.1 [facility] Comment on above: Performed By: #### F T4 #### [facility] [address] [place] [address] Dr. Edil Gayle Chloride [Moles/Vol] 106 mmol/L Normal 98-107 [facility] Comment on above: Performed By: #### F T4 #### [facility] [address] [place] [address] Dr. Edil Gayle CO2 [Moles/Vol] 29.1 mmol/L Normal 21.0-32.0 [facility] Comment on above: Performed By: #### F T4 #### [facility] [address] [place] [address] Dr. Edil Gayle Creatinine [Mass/Vol] 0.78 mg/dL Normal 0.55-1.02 [facility] Comment on above: Performed By: #### F T4 #### [facility] [address] [address] [address] Edil Gayle EGFR-AF CANADIAN >60 Normal >=60 [facility] Comment on above: Performed By: #### F T4 #### [facility] [address] [address] [address] Edil Gayle EGFR-NON AF CANADIAN >60 Normal >=60 [facility] Comment on above: Performed By: #### F T4 #### [facility] [address] [address] [address] Edil Gayle Glucose [Mass/Vol] 89 mg/dL Normal 74-106 [facility] Comment on above: Performed By: #### F T4 #### [facility] [address] [place] [address] Dr. Edil Gayle Potassium [Moles/Vol] 3.9 mmol/L Normal 3.5-5.1 [facility] Comment on above: Performed By: #### F T4 #### [facility] [address] [place] [address] Dr. Edil Gayle Sodium [Moles/Vol] 141 mmol/L Normal 136-145 [facility] Comment on above: Performed By: #### F T4 #### [facility] [address] [place] [address] Dr. Edil Gayle Urea nitrogen [Mass/Vol] 12.0 mg/dL Normal 7.0-18.0 [facility] Comment on above: Performed By: #### F T4 #### [facility] [address] [place] [address] Dr. Edil Gayle Urea nitrogen/Creatinine [Mass ratio] 15.4 mg/mg Normal [facility] Comment on above: Performed By: #### F T4 #### [facility] [address] [place] [address] Dr. Edil Ray 11-22-2020 RAFIA PATTERN SPECKLED Normal [facility] Comment on above: Result Comment: The JOSE C IFA RAFIA Hep-2 test utilizes the indirect fluorescent antibody (IFA) method that has been used extensively for detecting the presence of RAFIA in sera of patients with systemic lupus erythematosus (SLE), and other clinically similar connective tissue disorders. In addition, RAFIA may be associated with numerous drug-induced lupus syndromes which clinically mimic the spontaneous form of SLE. Positive RAFIA may be found in healthy individuals. It is therefore imperative that RAFIA results be interpreted in light of the patients clinical condition by medical authority. Performed By: #### 1 0196 #### [facility] [address] RAFIA SCREEN 1:80 Abnormal <1:40,1:40 [facility] Comment on above: Result Comment: Test performed using JOSE C IFA RAFIA Hep-2 Test, a pre-standardized assay designed for the qualitative and semi-quantitative detection of antinuclear antibodies. Performed By: #### 1 0196 #### [address] C REACTIVE PROTEINon 021 CRP [Mass/Vol] 1.9 mg/L Normal 0.0-7.0 [facility] Comment on above: Performed By: #### 9 9744, 97192, 77834 #### [address] CBC W/DIFFon 11-22-2020 ABS IMM GRANS 0.0 10*3/uL Normal 0.0-0.2 [facility] Comment on above: Performed By: #### 5 0103, 80326 #### [facility] [address] ABS NEUTROPHILS 10.1 10*3/uL High 1.6-7.6 The [facility] Comment on above: Performed By: #### 5 0103, 13462 #### [facility] [address] Basophils (Bld) [#/Vol] 0.1 10*3/uL Normal 0.0-0.2 [facility] Comment on above: Performed By: #### 5 102, 96799 #### [facility] [address] [place] [address], [facility] Basophils/100 WBC (Bld) 0.8 % Normal 0.0-1.0 [facility] Comment on above: Performed By: #### 102, 44584 #### [facility] [address] [place] [address], [facility] Eosinophils (Bld) [#/Vol] 0.2 10*3/uL Normal 0.0-0.5 [facility] Comment on above: Performed By: #### 5 102, 10897 #### [facility] [address] [facility] [place] [address], [facility] Eosinophils/100 WBC (Bld) 1.2 % Normal 0.0-6.0 [facility] Comment on above: Performed By: #### 102, 12691 #### [facility] [address] [facility] [address] Erythrocyte distribution width (RBC) [Ratio] 13.2 % Normal 11.5-15.0 [facility] Comment on above: Performed By: #### 5 102, 63625 #### [facility] [address] [facility] [place] [address], [facility] Hematocrit (Bld) [Volume fraction] 47.8 % High 36.0-45.0 [facility] Comment on above: Performed By: #### 5 102, 87544 #### [facility] [address] [facility] [place] [address], [facility] Hemoglobin (Bld) [Mass/Vol] 16.1 g/dL High 12.0-15.0 [facility] Comment on above: Performed By: #### 102, 38878 #### [facility] [address] [place] [id number], [facility] IMMATURE GRANS 0.3 % Normal 0.0-1.0 The [facility] Comment on above: Performed By: #### 5 102, 71606 #### [facility] [address] [facility] [place] [address], [facility] Lymphocytes (Bld) [#/Vol] 2.3 10*3/uL Normal 1.2-4.0 [facility] Comment on above: Performed By: #### 5 102, 76853 #### [facility] [address] [place] [address], [facility] Lymphocytes/100 WBC (Bld) 17.1 % Low 20.0-45.0 [facility] Comment on above: Performed By: #### 5 102, 78915 #### [facility] [address] MCH (RBC) [Entitic mass] 30.8 pg Normal 27.0-33.0 [facility] Comment on above: Performed By: #### 5 102, 26126 #### [facility] [address] [facility] [place] [address], [facility] MCHC (RBC) [Mass/Vol] 33.7 g/dL Normal 32.0-35.0 [facility] Comment on above: Performed By: #### 5 102, 96259 #### [facility] [address] [facility] [place] [address], [facility] MCV (RBC) [Entitic vol] 91.4 fL Normal 82.0-98.0 [facility] Comment on above: Performed By: #### 102, 75732 #### [facility] [address] [place] [address], [facility] Monocytes (Bld) [#/Vol] 0.7 10*3/uL Normal 0.1-1.0 [facility] Comment on above: Performed By: #### 102, 45293 #### [facility] [address] [place] [address], [facility] MONOS 5.0 % Normal 5.0-12.0 [facility] Comment on above: Performed By: #### 5 010, 85125 #### [facility] [address] [place] [address], [facility] Neutrophils/100 WBC (Bld) 75.6 % High 40.0-72.0 [facility] Comment on above: Performed By: #### 5 010, 44677 #### [facility] [address] [place] [address], [facility] Nucleated RBC/100 WBC (Bld) [Ratio] 0 % Normal 0-0 [facility] Comment on above: Performed By: #### 5 102, 25310 #### [facility] [address] [place] [address], [facility] PLAT CNT 303 10*3/uL Normal 150-400 [facility] Comment on above: Performed By: #### 5 010, 58865 #### [facility] [address] [place] [address], [facility] RBC (Bld) [#/Vol] 5.23 10*6/uL High 3.80-5.00 [facility] Comment on above: Performed By: #### 5 102, 19823 #### [facility] [address] [place] [address], [facility] WBC (Bld) [#/Vol] 13.31 10*3/uL High 4.00-10.60 [facility] Comment on above: Performed By: #### 5 102, 63735 #### [facility] [address] CYCLIC CITRULLINATED PEPTIDE [place] [id number] 11-22-2020 CYCLIC CIT PEP 4 Units Normal 0-19 [facility] Comment on above: Result Comment: INTE RPRETIVE INFORMATION: Cyclic Citrullinated Peptide Antibody, IgG 19 Units or less ................... Negative 20-39 Units ........................ Weak Positive 40-59 Units ........................ Moderate Positive 60 Units or greater ................ Strong Positive Anti-cyclic citrullinated peptide (anti-CCP), IgG antibodies are present in about 69-83 percent of patients with rheumatoid arthritis (RA) and have specificities of 93-95 percent. These autoantibodies may be present in the preclinical phase of disease, are associated with future RA development, and may predict radiographic joint destruction. Patients with weak positive results should be monitored and testing repeated. Performed By: [facility] [address] [place] [id number] Visiting Teacher: Olga Duval MD HAND LEFT 3 [facility] 11-22-2020 HAND LEFT 3 [facility] Department of Radiology [address] [place] [id number] Patient Name: ARACELI FRANCOIS : 1980 Sex: F Age: Race: White Pt. Location: [facility] Patient Status: D Ordered Date: 11/22/2020 10:50:00 AM Completed Date: 11/22/2020 10:54 AM Requesting Provider: DANYA ROTHMAN Attending Provider: DANYA ROTHMAN Report Copy To: Signs & Symptoms: M25.50 Pain in unspecified joint I10 History: Lissette Comments: Evaluate Exam: HAND LEFT 3 [facility] HAND LEFT 3 [facility] 11/22/2020 10:54 AM CLINICAL INDICATIONS: M25.50 Pain in unspecified joint I10 TECHNOLOGIST COMMENTS: Patient complains of numbness in both hands. QUESTION FOR THE RADIOLOGIST: Evaluate PROTOCOL: AP,Lateral and Oblique views were obtained. COMPARISON: None FINDINGS: 3 views of the hand were obtained. Bone mineralization is normal. There is some interphalangeal joint space narrowing but no inflammatory erosions or focal articular surface irregularity. Mild degenerative changes are present at the wrist. IMPRESSION: No acute abnormality. Early findings of osteoarthritis. Electronically signed: Neftali Gates. Transcribed by: [email or web address], User Resident: Electronically Signed by: NEFTALI GATES @ 11/23/2020 09:30 AM Normal [facility] Comment on above: Order Comment: Evalu ate HAND RIGHT 3 [facility] HAND RIGHT 3 S [facility] Department of Radiology [address] [place] [id number] Patient Name: ARACELI FRANCOIS : 1980 Sex: F Age: Race: White Pt. Location: [facility] Patient Status: D Ordered Date: 11/22/2020 10:50:00 AM Completed Date: 11/22/2020 10:54 AM Requesting Provider: DANYA ROTHMAN Attending Provider: DANYA ROTHMAN Report Copy To: Signs & Symptoms: M25.50 Pain in unspecified joint I10 History: Lissette Comments: Evaluate Exam: HAND RIGHT 3 S HAND RIGHT 3 [facility] 11/22/2020 10:54 AM CLINICAL INDICATIONS: M25.50 Pain in unspecified joint I10 TECHNOLOGIST COMMENTS: Patient complains of numbness in both hands. QUESTION FOR THE RADIOLOGIST: Evaluate PROTOCOL: AP,Lateral and Oblique views were obtained. COMPARISON: 11/22/2020 left hand radiograph. FINDINGS: No acute fracture or dislocation. Minimal osteophyte formation at the distal phalanges with some interphalangeal joint space narrowing This may present early findings of osteoarthritis. Joint space degeneration or inflammatory changes not visualized. IMPRESSION: * No acute fracture or dislocation. * Early changes of osteoarthritis. Approved by:Josiane Fletcher11/23/2020 9:43 AM. I, Neftali Gates,have reviewed the image(s) and agree with the findings in this report. Electronically signed: Neftali Gates. Transcribed by: [email or web address], User Resident: JOSIANE LAWRENCE Electronically Signed by: NEFTALI GATES @ 11/23/2020 12:29 PM I personally read this/these film(s) with this resident Normal [facility] Comment on above: Order Comment: Evalu ate PILAR Alfonso 11-22-2020 IgA [Mass/Vol] 410 mg/dL Normal 60-413 [facility] Comment on above: Performed By: #### 9 9744, 15994, 17594 #### [facility] [address] [place] [address], [facility] IgG [Mass/Vol] 908 mg/dL Normal 591-1540 [facility] Comment on above: Performed By: #### 9 9744, 67047, 35123 #### [facility] [address] [place] [address], [place] IgM [Mass/Vol] 58 mg/dL Normal 54-285 [facility] Comment on above: Performed By: #### 9 9744, 76616, 38975 #### [facility] [address] [facility] [place], [place] [id number] [place] [address] RHEUMATOID FACTOR SERUMon RA <20 Normal 0-20 [facility] Comment on above: Performed By: #### 9 9744, 16054, 86904 #### [facility] [address] [place] [address], [facility] SEDIMENTATION RATEon 021 SED RATE 4 mm/hr Normal 0-20 [facility] Comment on above: Performed By: #### 5 0103, 87916 #### [facility] [address] [facility]. [address] t cell subset analysison CD3 % 86.24 % Normal 65.00-90.00 [facility] Comment on above: Order Comment: This test was developed and its performance characteristics determined by the [facility] Flow Cytometry Laboratory. It has not been cleared or approved by the U.S. Food and Drug Administration. Performed By: #### 9 0116 #### [facility] [address] [facility]. [address] CD3 ABSOLUTE 1963 cells/mm3 Normal 760-2130 [facility] Comment on above: Order Comment: This test was developed and its performance characteristics determined by the [facility] Flow Cytometry Laboratory. It has not been cleared or approved by the U.S. Food and Drug Administration. Performed By: #### 9 0116 #### [facility] [address] [facility]. [address] CD4 % 67.10 % Normal 40.00-70.00 [facility] Comment on above: Order Comment: This test was developed and its performance characteristics determined by the [facility] Flow Cytometry Laboratory. It has not been cleared or approved by the U.S. Food and Drug Administration. Performed By: #### 9 0116 #### [facility] [address] [place] [address], [facility] CD4 ABSOLUTE 1527 cells/mm3 High 430-1185 [facility] Comment on above: Order Comment: This test was developed and its performance characteristics determined by the [facility] Flow Cytometry Laboratory. It has not been cleared or approved by the U.S. Food and Drug Administration. Performed By: #### 9 0116 #### [facility] [address] CD4:CD8 RATIO 3.79 Normal 1.00-4.00 [facility] Comment on above: Order Comment: This test was developed and its performance characteristics determined by the [facility] Flow Cytometry Laboratory. It has not been cleared or approved by the U.S. Food and Drug Administration. Performed By: #### 9 0116 #### [facility] [address] CD8 % 17.70 % Normal 15.00-40.00 [facility] Comment on above: Order Comment: This test was developed and its performance characteristics determined by the [facility] Flow Cytometry Laboratory. It has not been cleared or approved by the U.S. Food and Drug Administration. Performed By: #### 9 0116 #### [facility] [address] CD8 ABSOLUTE 403 cells/mm3 Normal 180-865 [facility] Comment on above: Order Comment: This test was developed and its performance characteristics determined by the [facility] Flow Cytometry Laboratory. It has not been cleared or approved by the U.S. Food and Drug Administration. Performed By: #### 9 0116 #### [facility] [address] Vital Signs Date Time Vital Sign Value Performing Clinician Facility 03-16-2023 10:58-0500 Body height 162.6 cm Pm 1 [facility] 03-16-2023 10:58-0500 Body mass index (BMI) [Ratio] 42.05 kg/m2 Pm 1 [facility] 03-16-2023 10:58-0500 Body weight 111.13 kg Pm 1 [facility] 03-01-2023 14:45-0500 Body height 162.56 cm [facility] Other [facility] Other 03-01-2023 14:45-0500 Body mass index (BMI) [Ratio] 42.05 kg/m2 Kisha Barkley Other [facility] Other 03-01-2023 14:45-0500 Body temperature 97.5 [degF] Kisha Filippo Other [facility] Other 03-01-2023 14:45-0500 Body weight 111.13 kg Kisha Filippo Other [facility] Other 03-01-2023 14:45-0500 Respiratory rate 18 /min Kisha Barkley Other [facility] Other 03-01-2023 14:45-0500 SaO2% (BldA) [Mass fraction] 99 % Kisha Barkley Other [facility] Other 10-26-2022 09:00-0400 Body height 162.56 cm Albaro Wilson Other [facility] Other 10-26-2022 09:00-0400 Body mass index (BMI) [Ratio] 43.25 kg/m2 Albaro Wilson Other [facility] Other 10-26-2022 09:00-0400 Body weight 114.31 kg Albaro Wilson Other [facility] Other 10-26-2022 09:00-0400 Diastolic blood pressure 80 mm[Hg] Albaro Wilson Other [facility] Other 10-26-2022 09:00-0400 Systolic blood pressure 122 mm[Hg] Albaro Barriosbinh Other [facility] Other 09-12-2022 14:20-0400 Diastolic blood pressure 70 mm[Hg] [facility] 09-12-2022 14:20-0400 Heart rate 70 /min [facility] 09-12-2022 14:20-0400 Respiratory rate 16 /min [facility] 09-12-2022 14:20-0400 SaO2% (BldA) [Mass fraction] 97 % [facility] 09-12-2022 14:20-0400 Systolic blood pressure 131 mm[Hg] [facility] 09-12-2022 12:54-0400 Body height 162.56 cm [facility] 09-12-2022 12:54-0400 Body temperature 98.2 [degF] [facility] 09-12-2022 12:54-0400 Body weight 113.39 kg [facility] Encounters Encounter Date Encounter Type Care Provider Facility Start: 03-19-2023 Telephone encounter Db Rivera MD Work Phone: [facility] Start: 03-19-2023 End: 03-19-2023 Evaluation and management of inpatient [facility] Start: 03-16-2023 End: 03-16-2023 ambulatory [facility] Pat Phone Call Provider 1 [facility] Pre [facility] Start: 03-16-2023 End: 03-16-2023 ambulatory SHAD [facility] Start: 03-12-2023 End: 03-13-2023 ambulatory LIZZ GUTIÉRREZ [facility] Start: 03-01-2023 End: 03-01-2023 ambulatory Kisha Barkley Other [facility] Other Start: 03-01-2023 Office outpatient visit 25 minutes Kisha Barkley [facility] Start: 02-06-2023 End: 02-07-2023 ambulatory [facility] Start: 10-26-2022 End: 10-26-2022 ambulatory Albaro Wilson Other Located Within [facility] [employer] Other Start: 10-26-2022 Office outpatient visit 15 minutes Albaro Wilson [facility] Start: 09-19-2022 End: 09-19-2022 ambulatory Albaro Wilson Other Located [facility] [employer] Other Start: 09-19-2022 Telephone encounter Albaro Sharma [facility] Start: 09-12-2022 End: 09-12-2022 ambulatory Siva You Facility:[facility] Start: 09-12-2022 End: 09-12-2022 Admission to same day surgery center [facility] Work Phone: Start: 09-12-2022 End: 09-12-2022 ambulatory NON STAFF [facility] Work Phone: Start: 06-30-2022 End: 02-14-2023 ambulatory Greyson Lincoln Start: 06-14-2022 End: 06-14-2022 ambulatory [facility] Start: 06-07-2022 ambulatory SHAD IDA Facility:[facility] 1 Start: 05-31-2022 End: 05-31-2022 ambulatory [facility] Start: 05-24-2022 End: 05-24-2022 ambulatory QUIRINO ANDRE [facility] Start: 05-17-2022 End: 05-17-2022 ambulatory [facility] Start: 05-02-2022 End: 05-02-2022 ambulatory [facility] Start: 04-21-2022 End: 04-22-2022 ambulatory [facility]AD [facility] Facility:[facility] Start: 04-18-2022 End: 04-18-2022 ambulatory [facility] Start: 04-11-2022 End: 04-11-2022 ambulatory LASHELL RESZKO [facility] Start: 04-03-2022 End: 04-03-2022 ambulatory SHAD SHAMMO Facility:[facility] Start: 01-31-2022 End: 02-01-2022 ambulatory QUIRINO ANDRE Facility:[facility] Start: 01-10-2022 End: 01-11-[address] OMAR GUIDRY . Facility:[facility] Start: 12-20-2021 End: 12-20-2021 ambulatory NON STAFF Facility:[facility] Start: 12-20-2021 End: 12-20-2021 ambulatory NON STAFF [facility] Work Phone: Start: 12-20-2021 End: 12-20-2021 Patient encounter procedure DO Ron Wallace Work Phone: [facility] [place] Start: 12-20-2021 End: 12-21-[address] OMAR GUIDRY . Facility:[facility] Start: 12-10-2021 End: 12-11-2021 ambulatory SHAD SHAMMO Facility:[facility] Start: 12-06-2021 End: 12-07-2021 ambulatory SHAD SHAMMO Facility:[facility] Start: 11-08-2021 End: 11-09-2021 ambulatory SHAD SHAMMO Facility:[facility] Start: 11-03-2021 Encounter for genera l adult medical examination without abnormal findings DR DOCTOR HORNER [facility] Start: 11-01-2021 End: 11-02-[address] DOCTOR HORNER Facility:[facility]1 Start: 11-01-2021 End: 11-02-2021 Encounter for general adult medical examination without abnormal findings DR DOCTOR HORNER Facility:[facility] Start: 09-23-2021 End: 09-23-[address] CASSY DODSON . Facility:[facility] Start: 07-28-2021 End: 07-28-2021 ambulatory IRAM ROTH Facility:[facility] Procedures Date Procedure Procedure Detail Performing Clinician Start: 09-12-2022 Esophagogastroduodenoscopy Start: 07-05-2022 Adult depression screening assessment [facility] 1 Plan of Treatment Date Care Activity Detail Author Start: 09-28-2028 DTaP,Tdap and Td Vac cines (2 - Td or Tdap) DTaP,Tdap and Td Vaccines (2 - Td or Tdap) [facility] Start: 03-19-2024 Tobacco Screening Tobacco Screening [facility] Start: 03-16-2024 Adult BMI Screening Adult BMI Screen ing [facility] Start: 01-02-2024 Tobacco Screening Tobacco Screening [facility] Start: 07-06-2023 Depression Screening Depression Scre ening [facility] Start: 04-27-2023 End: 04-27-2023 Patient encounter procedure 04/27/2023 3:15 PM EDT Office Visit [facility] On[facility] [address] [place] [phone] Lizz Gutiérrez MD [address] [facility] [address] [place], [place] [id number] Anabel Colmenares [facility] - Medical Oncology Start: 03-19-2023 End: 03-19-2023 Patient encounter procedure 03/19/2023 3:45 PM EST Office Visit [facility] [address] [place] [address] [place] [address] [place] [phone] Db Rivera MD [address] [place] [address] [facility] Start: 03-19-2023 End: 03-19-2023 Admission to same day surgery center 03/19/2023 9:30 AM EST - 03/19/2023 10:00 AM EST Surgery [facility] [address] [place] [phone] Db Rivera MD [address] [place] [id number] CYSTOSCOPY WITH BLADDER IRRIGATION AND [facility] BLADDER SOLUTION [59983 (CPT )] [facility] Comment on above: CYSTOSCOPY WITH BLAD ELI IRRIGATION AND [facility] BLADDER SOLUTION [41732 (CPT )] Start: 03-19-2023 End: 03-19-2023 Cystourethroscopy [facility] Start: 03-19-2023 Subsequent hospital visit by physician 03/19/2023 9:30 AM EST Hospital Encounter [facility] [address] [place] [phone] Db Rivera MD [facility] [place] [address] [facility] Start: 10-06-2022 Influenza vaccination Influenza Vacc ine [facility] Start: 09-12-2022 [facility] Start: 12-20-2021 MR Unspecified body region [facility] Start: 12-20-2021 MRI of head MR head/brain wo/w con [facility] Start: 1996 Adult BMI Follow Up Plan Adult BMI Follow Up Plan [facility] Start: 1978 Tobacco Counseling Tobacco Counselin g [facility] Patient Education Hiatal Hernia (DC) [facility] Work Phone: Immunizations Immunization Date Immunization Notes Care Provider Fa cility 09-28-2018 tetanus toxoid, redu moon diphtheria toxoid, and acellular pertussis vaccine, adsorbed [facility] 1 [facility] Payers Date Payer Category Payer Medicaid [id number] 2022 Medicaid [place] [id number] 2022-Present [address] [place] [address] [id number] 2021 Self-pay [id number] 1978 Unknown [id number] 1978 Unknown [id number] ..[id number] 1978 Unknown [id number] 1978 Unknown [id number] [id number]3 1978 Unknown [id number] 2.16.840.1.213610.3.579.2.593 1978 Unknown [id number] 2.16840.1.656573.3.579.2.593 1978 Unknown [id number] 2.16840.1.271549.3.579.2.593 1978 Unknown [id number] .840.1.838814.3.579.2.59 1978 Unknown [id number] .0.1.407030.3.579.2.593 1978 Unknown [id number] .840.1.179916.3.579.2.593 1978 Unknown [id number] .840.1.114437.3.579.2.593 1978 Unknown [id number] .840.1.250382.3.579.2.59 1978 Unknown [id number] .840.1.287508.3.579.2.593 1978 Unknown [id number] 1978 Unknown [id number] .16840.1.249905.3.579.2.128 1978 Unknown [id number] .840.1.771068.3.579.2.1285 1978 Unknown [id number] .840.1.262308.3.579.2.1286 1959 Medicaid [id number] Unknown [id number] 2.840.1.632159.3.579.2.531 Unknown [id number] 2.16.840.1.856249.3.579.2.531 Social History Date Type Detail Facility [facility] Work Phone: Start: 1980 Sex Assigned At Female [facility] Start: 09-12-2022 [facility] Start: 03-18-2020 End: 07-05-2022 Sex Assigned At [facility] Start: 06-21-2022 End: 03-19-2023 Tobacco smoking status HIIS Smokes tobacco daily [facility] History of tobacco use [facility]igarette Sm[facility] Start: 03-18-2020 End: 06-21-2022 Cigarettes smoked current (pack per day) - Reported 0.5 [facility] Start: 06-21-2022 End: 03-19-2023 Tobacco use and exposure Smokeless tobacco non-user [facility] Start: 03-16-2023 End: 03-19-2023 Alcohol intake Current non-drinker of alcohol (finding) [facility] How often to you hav e a drink containing alcohol? Never [facility] How many standard drinks containing alcohol do you have on a typical day? Patient does not drink [facility] Start: 06-21-2022 Tobacco Comment Has a patch an d down to 4 cig. Per day [facility] Start: 1980 Sex Assigned At Not on file P [facility] Medical Equipment Procedure Code Equipment Code Equipment Origin al Text Equipment Identifier Dates Graft Bn 5ml Yomi Puros Strl Lf - [id number] Start: 07-05-2022 Cover Bur Hl 14m m Lp Tab Unv Neuro 2 Thk.5mm Ns Lf - [id number] Start: 07-05-2022 Plate Bn 16mm 2 Hl Lp Unv Neuro Ii Crnmxf Ti Ns Lf 1.5mm Scr - [id number] Start: 07-05-2022 Screw Bn 4mm 1.5 mm Slf Drl Xpn [facility] - [id number] Start: 07-05-2022 Goals Date Patient Goal Desired Activity /State Clinical Notes 12-20-2021 to 03-19-2023 Telephone Encounter - Db Rivera MD - 03/19/2023 10:33 AM ESTTelephone Encounter - Db Rivera MD - 03/19/2023 10:33 AM EST Note Date & Type Note Facility 03-19-2023 Miscellaneous Notes Return the office about 1 month. Please cancel the patient's appointment today for 3:45. documented in this encounter [facility] 03-19-2023 Telephone encounter Note Return the office about 1 month. Please cancel the patient's appointment today for 3:45. [facility] Work Phone: 03-16-2023 Nurse Note Preoperative Education Checklist- General Surgery date: 03/19/23 Surgery time: 930a Arrival time: 830a 1. Bring a photo ID and your insurance card with you the day of surgery. You will check in at the main lobby of the [facility]- registration desk is straight ahead as soon as you walk in. Tell them you are here for surgery. 2. If you have a Living Will/Durable Power of [facility] that is not on file here, please bring a copy the day of surgery. 3. Please shower/bathe the night before surgery with the provided soap or wipes. Do not shower the morning of surgery- you will do use wipes when you arrive here at the hospital before getting into your surgical gown. Do not shave the area of your procedure for 2 days prior to your surgery. 4. NO powder, lotion, perfume/cologne, aftershave, make-up, deodorant, or hair products after you have bathed. 5. NO nail vietnamese/acrylic on at least one finger. If you are having a hand, wrist or foot surgery then all nail vietnamese and artificial/acrylic nails must be removed from that hand or foot. 6. Avoid ALL Aspirin and non-steroidal anti-inflammatory drugs and certain vitamins (Ibuprofen, Advil, Aleve, Excedrin, Meloxicam, Celebrex, fish/krill oil, etc.) for 7 days prior to surgery as instructed by your surgeon and/or your prescribing doctor. Tylenol IS ALLOWED. If you are on Ticlid, Xarelto, Eliquis, Pradaxa, Plavix or Coumadin, please check with your prescribing doctor for instructions for when to stop them. 7. If you use an inhaler, continue to use it routinely. 8. Nothing to eat or drink (not even water, gum, mints, or hard candy!) AFTER midnight prior to your surgery. 9. Take only medications that you are instructed to on the morning of surgery with a TINY SIP OF WATER. 10. Choose a responsible adult that will be able to drive you home when you are discharged from your hospital stay for your surgery and can stay with you in your home for 24 hours after your procedure. You must NOT drive any vehicle or operate any machinery for 24 hours after surgery. 11. When you dress for your appointment, please wear loose fitting clothing that is appropriate to accommodate your surgical area procedure. BRING WITH YOU ANY DEVICES YOU MAY NEED: PATRIZIA hose, ice machine, sling/swath, brace or special shoe, oversized zip-up or button up shirt, CPAP machine if staying overnight. 12. Do NOT wear jewelry, watches, or any piercings or metal for surgery- leave these valuables and money at home. 13. Do NOT wear contact lenses for surgery- glasses are okay if needed. 14. The anesthesiologist will talk with you the day of surgery and will ask you to sign a Consent Form. 15. Refrain from smoking or any type of tobacco use for at least 8 hours and marijuana for 24 hours prior to arrival for your surgery. 16. If a GREEN BLOOD band is given to you, please bring it with you for the day of surgery. 17. Notify your surgeon if you develop any illness before your surgery. 18. If you are staying overnight, please DO NOT BRING your home medications with you. 19. If you have any questions prior to surgery, please call the Preadmission Testing office at [phone], Mon.-Fri. 7 a.m.-3 p.m. Leave a voicemail if needed. Pre-Surgery Instructions: Medication Instructions acetaminophen (TYLENOL EXTRA STRENGTH) 500 mg tablet Stop taking 0 days prior to procedure amitriptyline (ELAVIL) 50 mg tablet Stop taking 0 days prior to procedure amLODIPine (NORVASC) 5 mg tablet Take morning of procedure atorvastatin (LIPITOR) 20 mg tablet Stop taking 0 days prior to procedure FLUoxetine (PROzac) 20 mg capsule Stop taking 0 days prior to procedure fluticasone propion-salmeteroL (ADVAIR) 100-50 mcg/dose DISKUS Take morning of procedure losartan (COZAAR) 50 mg tablet Take morning of procedure naloxone (NARCAN) 4 mg/actuation spray,non-aerosol nasal spray Stop taking 0 days prior to procedure omega 1-bvb-fyf-fish oil (FISH OIL) 300-1,000 mg capsule,delayed release(DR/EC) Stop taking 0 days prior to procedure omeprazole (PriLOSEC) 40 mg capsule Take morning of procedure rimegepant (NURTEC ODT) 75 mg tablet,disintegrating Stop taking 0 days prior to procedure tiZANidine (ZANAFLEX) 2 mg tablet Stop taking 0 days prior to procedure [facility] 03-16-2023 Miscellaneous Notes Preoperative Education Checklist- General Surgery date: 03/19/23 Surgery time: 930a Arrival time: 830a 1. Bring a photo ID and your insurance card with you the day of surgery. You will check in at the main lobby of the [facility]- registration desk is straight ahead as soon as you walk in. Tell them you are here for surgery. 2. If you have a Living Will/Durable Power of [facility] that is not on file here, please bring a copy the day of surgery. 3. Please shower/bathe the night before surgery with the provided soap or wipes. Do not shower the morning of surgery- you will do use wipes when you arrive here at the hospital before getting into your surgical gown. Do not shave the area of your procedure for 2 days prior to your surgery. 4. NO powder, lotion, perfume/cologne, aftershave, make-up, deodorant, or hair products after you have bathed. 5. NO nail vietnamese/acrylic on at least one finger. If you are having a hand, wrist or foot surgery then all nail vietnamese and artificial/acrylic nails must be removed from that hand or foot. 6. Avoid ALL Aspirin and non-steroidal anti-inflammatory drugs and certain vitamins (Ibuprofen, Advil, Aleve, Excedrin, Meloxicam, Celebrex, fish/krill oil, etc.) for 7 days prior to surgery as instructed by your surgeon and/or your prescribing doctor. Tylenol IS ALLOWED. If you are on Ticlid, Xarelto, Eliquis, Pradaxa, Plavix or Coumadin, please check with your prescribing doctor for instructions for when to stop them. 7. If you use an inhaler, continue to use it routinely. 8. Nothing to eat or drink (not even water, gum, mints, or hard candy!) AFTER midnight prior to your surgery. 9. Take only medications that you are instructed to on the morning of surgery with a TINY SIP OF WATER. 10. Choose a responsible adult that will be able to drive you home when you are discharged from your hospital stay for your surgery and can stay with you in your home for 24 hours after your procedure. You must NOT drive any vehicle or operate any machinery for 24 hours after surgery. 11. When you dress for your appointment, please wear loose fitting clothing that is appropriate to accommodate your surgical area procedure. BRING WITH YOU ANY DEVICES YOU MAY NEED: PATRIZIA hose, ice machine, sling/swath, brace or special shoe, oversized zip-up or button up shirt, CPAP machine if staying overnight. 12. Do NOT wear jewelry, watches, or any piercings or metal for surgery- leave these valuables and money at home. 13. Do NOT wear contact lenses for surgery- glasses are okay if needed. 14. The anesthesiologist will talk with you the day of surgery and will ask you to sign a Consent Form. 15. Refrain from smoking or any type of tobacco use for at least 8 hours and marijuana for 24 hours prior to arrival for your surgery. 16. If a GREEN BLOOD band is given to you, please bring it with you for the day of surgery. 17. Notify your surgeon if you develop any illness before your surgery. 18. If you are staying overnight, please DO NOT BRING your home medications with you. 19. If you have any questions prior to surgery, please call the Preadmission Testing office at [phone], Mon.-Fri. 7 a.m.-3 p.m. Leave a voicemail if needed. Pre-Surgery Instructions: Medication Instructions acetaminophen (TYLENOL EXTRA STRENGTH) 500 mg tablet Stop taking 0 days prior to procedure amitriptyline (ELAVIL) 50 mg tablet Stop taking 0 days prior to procedure amLODIPine (NORVASC) 5 mg tablet Take morning of procedure atorvastatin (LIPITOR) 20 mg tablet Stop taking 0 days prior to procedure FLUoxetine (PROzac) 20 mg capsule Stop taking 0 days prior to procedure fluticasone propion-salmeteroL (ADVAIR) 100-50 mcg/dose DISKUS Take morning of procedure losartan (COZAAR) 50 mg tablet Take morning of procedure naloxone (NARCAN) 4 mg/actuation spray,non-aerosol nasal spray Stop taking 0 days prior to procedure omega 6-xvq-zxm-fish oil (FISH OIL) 300-1,000 mg capsule,delayed release(DR/EC) Stop taking 0 days prior to procedure omeprazole (PriLOSEC) 40 mg capsule Take morning of procedure rimegepant (NURTEC ODT) 75 mg tablet,disintegrating Stop taking 0 days prior to procedure tiZANidine (ZANAFLEX) 2 mg tablet Stop taking 0 days prior to procedure documented in this encounter [facility] 03-01-2023 Evaluation note Encounter Date Diagnosis Assessment Notes Feb, Exposure to influenza (ICD-10 - Z20.828) Advised patient that COVID/Influenza A/B test and rapid Strep test was negative today, however, will treat as Influenza based on known exposure to son who tested positive in office. Encouraged supportive care as directed, Tamiflu as directed, steroid and Albuterol Inhaler as needed, increase fluids and rest, Tylenol as directed, cool mist humidifier, throat lozenges. Advised patient that she needs to stay home from work/school/activ ities until fever free for 24 hours without the use of antipyretics. Follow-up with PCP for further management if needed. Immediate eval for SOB, difficulty breathing, chest pain, fevers that do not break with antipyretic or any other concerning symptoms as reviewed on patient education handout. Patient verbalizes understanding and is agreeable to treatment plan. Patient left in stable condition. Feb, Contact with and (suspected) exposure to covid-19 (ICD-10 - Z20.822) [facility] Other 09-21-2023 Evaluation note* Encounter Date Diagnosis Assessment Notes Treatment Notes Treatment Clinical Notes Oct, GERD (gastroesophageal reflux disease) (ICD-10 - K21.9) Patient reports break through and she will in crease omeprazole 40 mg to BID RTO 6 months Oct, Hiatal hernia (ICD-10 - K44.9) Oct, Schatzki's ring (ICD-10 - K22.2) [facility] NotePsych Progress Note Time In: 9:30 AM Time Out: 10:25 AM HPI Present at Visit: Patient was present via [employer] Location of Service: Clinician at Office and Patient at home connecting via [employer]. Current Presenting Symptoms/Problems: Mood: Sadness and Anhedonia Anxiety: Generalized worry Trauma/Abuse: Previously reported in DA, no knew incidents reported. Cognition: No agitation, No paranoia, and No wandering Sleep: Multiple awakenings and Difficulty due to pain Lifestyle Habits: No regular exercise and Typical day lacks structure Medication Compliance: N/A Onset/Timing: The patient reports that emotional and physical symptoms began at least 12 years ago after the procedure for the Essure sterilization device. She began have multiple health problems that lead to multiple procedures. Context: The patient discussed the stressors around preparing for her upcoming surgery on July 05. The new concern that if the surgery doesn't go well them her son's friend may not be able to come live with them. Severity: Moderate Individualized Service Plan (ISP): Problem: I want to figure out ways to deal with everything. Dates: Start: 12/08/21 Problem: Acute or Chronic Trauma Reaction Dates: Start: 12/08/21 Disciplines: Interdisciplinary Goal: GOAL: Eliminate or reduce the negative impact trauma related symptoms and chronic pain have on social, occupational, and family functioning Dates: Start: 12/08/21 Expected End: 12/06/22 Disciplines: Interdisciplinary Goal: OBJ: Patient will practice breathing and mindfulness for 10 minutes, 1-2 times per day Dates: Start: 12/08/21 Expected End: 12/06/22 Disciplines: Interdisciplinary Goal: OBJ: Patient will experience a reduction in exaggerated beliefs about self and others that interfere with trauma resolution as evidenced by self-report over the next year Dates: Start: 12/08/21 Expected End: 12/06/22 Disciplines: Interdisciplinary Goal: OBJ: Patient will identify 3 trauma related cognitive distortions and discussed ways to reframe or stop. Dates: Start: 12/08/21 Expected End: 12/06/22 Disciplines: Interdisciplinary Intervention: Establish rapport with the client toward building a therapeutic alliance Dates: Start: 12/08/21 Intervention: Explore the client???s recollection of the facts of the traumatic incident, his/her cognitive and emotional reactions at the time; assess history of the client???s PTSD symptoms and their impact on functioning Dates: Start: 12/08/21 Intervention: Educate the client about how effective treatments for PTSD help address the cognitive, emotional, and behavioral consequences of PTSD using cognitive and behavioral therapy approaches Dates: Start: 12/08/21 Intervention: Teach the client calming skills (e.g., breathing retraining, relaxation, calming self-talk) to use in and between sessions when feeling overly distressed Dates: Start: 12/08/21 Intervention: Teach the client the relationship between thoughts, behaviors, and emotions associated with the trauma Dates: Start: 12/08/21 Intervention: Using Cognitive Therapy techniques, explore the client???s self-talk and beliefs about self, others, and the future that are a consequence of the trauma (e.g., themes of safety, trust, power, control, esteem, and intimacy) Dates: Start: 12/08/21 Intervention: Utilize Eye Movement Desensitization and Reprocessing (EMDR) to reduce the client???s emotional reactivity to the traumatic event and reduce PTSD symptoms Dates: Start: 12/08/21 Intervention: Teach mindfulness meditation to help client recognize negative thought processes associated with PTSD and change the relationship with these thoughts by accepting them and not reacting to, cre-vrwbllp-flgxp mental phenomena Dates: Start: 12/08/21 Progress Toward ISP Goals/Objectives: The patient shared some of her fears about her upcoming surgery and how it could impact her sons. Discussed ways to care for herself. The patient tried to participate in relaxation/ healing meditation and struggled because of pressure around sinuses possible from aneurysm. Therapeutic Interventions Provided: Discussed rationale, risks, benefits and alternatives, Motivational Interviewing, Psychoeducation, and Relaxation Therapy Response to Intervention: Agreeable Overall Assessment of Progress: The patient's progress is slow due to her serious ongoing medical concerns. Being able to help her son's friend seems to be giving her some motivation. She is hoping her brain surgery will help her to be able to get off some of her medications and be able to work again. The patient seems to be doubtful about how much things like meditation and breathing can help but is will to try at times. The client also talked about how her sid is helping her cope with the unknown. Mental Status Exam Level of Alertness: alert Appearance: dressed appropriately Eye Contact: normal Build/S (more content not included)...[facility] 05-31-2022 NotePsych Progress Note Time In: 11:03 AM Time Out: 11:58 AM HPI Present at Visit: Patient was present via [employer] Location of Service: Clinician at Office and Patient at home connecting via [employer]. Current Presenting Symptoms/Problems: Mood: Sadness and Anhedonia Anxiety: Generalized worry Trauma/Abuse: Previously reported in DA, no knew incidents reported. Cognition: No agitation, No paranoia, and No wandering Sleep: Multiple awakenings and Difficulty due to pain Lifestyle Habits: No regular exercise and Typical day lacks structure Medication Compliance: N/A Onset/Timing: The patient reports that emotional and physical symptoms began at least 12 years ago after the procedure for the Essure sterilization device. She began have multiple health problems that lead to multiple procedures. Context: The patient shared her wrroies about her upcoming brain surgery on July 05. She believes she has been approved to foster her son's friend but he will likely not be coming until after her surgery and he finishes school. Severity: Moderate Individualized Service Plan (ISP): Problem: I want to figure out ways to deal with everything. Dates: Start: 12/08/21 Problem: Acute or Chronic Trauma Reaction Dates: Start: 12/08/21 Disciplines: Interdisciplinary Goal: GOAL: Eliminate or reduce the negative impact trauma related symptoms and chronic pain have on social, occupational, and family functioning Dates: Start: 12/08/21 Expected End: 12/06/22 Disciplines: Interdisciplinary Goal: OBJ: Patient will practice breathing and mindfulness for 10 minutes, 1-2 times per day Dates: Start: 12/08/21 Expected End: 12/06/22 Disciplines: Interdisciplinary Goal: OBJ: Patient will experience a reduction in exaggerated beliefs about self and others that interfere with trauma resolution as evidenced by self-report over the next year Dates: Start: 12/08/21 Expected End: 12/06/22 Disciplines: Interdisciplinary Goal: OBJ: Patient will identify 3 trauma related cognitive distortions and discussed ways to reframe or stop. Dates: Start: 12/08/21 Expected End: 12/06/22 Disciplines: Interdisciplinary Intervention: Establish rapport with the client toward building a therapeutic alliance Dates: Start: 12/08/21 Intervention: Explore the client???s recollection of the facts of the traumatic incident, his/her cognitive and emotional reactions at the time; assess history of the client???s PTSD symptoms and their impact on functioning Dates: Start: 12/08/21 Intervention: Educate the client about how effective treatments for PTSD help address the cognitive, emotional, and behavioral consequences of PTSD using cognitive and behavioral therapy approaches Dates: Start: 12/08/21 Intervention: Teach the client calming skills (e.g., breathing retraining, relaxation, calming self-talk) to use in and between sessions when feeling overly distressed Dates: Start: 12/08/21 Intervention: Teach the client the relationship between thoughts, behaviors, and emotions associated with the trauma Dates: Start: 12/08/21 Intervention: Using Cognitive Therapy techniques, explore the client???s self-talk and beliefs about self, others, and the future that are a consequence of the trauma (e.g., themes of safety, trust, power, control, esteem, and intimacy) Dates: Start: 12/08/21 Intervention: Utilize Eye Movement Desensitization and Reprocessing (EMDR) to reduce the client???s emotional reactivity to the traumatic event and reduce PTSD symptoms Dates: Start: 12/08/21 Intervention: Teach mindfulness meditation to help client recognize negative thought processes associated with PTSD and change the relationship with these thoughts by accepting them and not reacting to, tle-[id number]-[id number] mental phenomena Dates: Start: 12/08/21 Progress Toward ISP Goals/Objectives: The patient shared some of her fears about her upcoming surgery and how it could impact her sons. Discussed ways to care for herself. Therapeutic Interventions Provided: Discussed rationale, risks, benefits and alternatives, Motivational Interviewing, Psychoeducation, and Relaxation Therapy Response to Intervention: Agreeable Overall Assessment of Progress: The patient's progress is slow due to her serious ongoing medical concerns. Being able to help her son's friend seems to be giving her some motivation. She is hoping her brain surgery will help her to be able to get off some of her medications and be able to work again. This continues to be true. She feels like she is in a holding pattern until her surgery. Mental Status Exam Level of Alertness: alert Appearance: dressed appropriately Eye Contact: normal Build/Stature: Could not observe due to being a telehealth session. Posture: Could not observe due to being a telehealth session. Muscle Tone: Could not observe due to being a telehealth session. Gait and Ambulation: Could not observe due to (more content not included)... [facility]04-19-2023 NotePCP started pt on lipitor 20 mg for HPL- Recommend repeat Lipid and liver function levels in 2-3 months of starting statin- [facility] NoteReview of Systems Constitutional: Negative for malaise/fatigue. Cardiovascular: Positive for leg swelling. Negative for chest pain, dyspnea on exertion, irregular heartbeat, near-syncope, palpitations and syncope. She believes she does get swelling in her legs & feet. Neurological: Positive for headaches and light-headedness. Negative for dizziness. Has 2 brain aneurysms. Occasional light-headedness. Araceli is here for a 3 month follow up. She complains of some swelling in her legs and feet. She also has headaches and some light-headedness, which she believes is due to her aneurysms. She is planned for surgery on July 05 (which has been rescheduled several times).[facility] 05-24-2022 NoteUTP CARDIOLOGY PROGRESS NOTE HPI: Araceli Francois is a 41 y.o. female here for routine f/U for HTN, atypical chest pain Currently denied chest pain, shortness of breath, orthopnea. Admits occasional lightheadedness/dizziness, but denied syncope. States that Neuro-surg at [facility] is planning surgery for aneurysm. Previous HPI per Dr Sommers 02/15/22 Pt yolie known factor V Leiden (apparently 1 gene only, not on anticoagulation), cerebral aneurysm, fibromyalgia, hypertension, and migraine headaches. Patient was initially referred to Cardiology clinic for a single episode of chest pain. At the time, echo and lexiscan stress test were ordered. Review of Systems Visit Vitals BP 125/82 (BP Location: Right arm, Patient Position: Sitting) Pulse 103 Ht 1.626 m (5' 4 ) Wt 119 kg (262 lb 3.2 oz) SpO2 97% BMI 45.01 kg/m??? Smoking Status Every Day BSA 2.32 m??? Allergies Allergen Reactions Penicillins Hives, Shortness of breath and Rash Bee Pollen Other Duloxetine GI intolerance Naproxen Hives Nickel Medications: Current Outpatient Medications on File Prior to Visit Medication Sig Dispense Refill amLODIPine (Norvasc) 10 mg tablet Take 10 mg by mouth in the morning. ARIPiprazole (Abilify) 2 mg tablet Take 2 mg by mouth at bedtime. atorvastatin (Lipitor) 20 mg tablet Take 20 mg by mouth in the morning. carvedilol (Coreg) 3.125 mg tablet Take 1 tablet (3.125 mg) by mouth with breakfast and with evening meal. 180 tablet 3 hydrOXYzine HCL (Atarax) 50 mg tablet Take 50 mg by mouth 1 (one) time. losartan (Cozaar) 100 mg tablet Take 100 mg by mouth in the morning. Nurtec ODT 75 mg tablet,disintegrating TAKE 1 TABLET BY MOUTH at the onset OF a migraine; MUST LAST 30 DAYS omeprazole (PriLOSEC) [address] capsule TAKE 1 CAPSULE BY MOUTH 30 MINUTES BEFORE morning meal pregabalin (Lyrica) 100 mg capsule TAKE 1 CAPSULE BY MOUTH at 8pm ProAir HFA 90 mcg/actuation inhaler INHALE 1 PUFF BY MOUTH NEEDED EVERY 4 HOURS sertraline (Zoloft) 50 mg tablet Take 50 mg by mouth in the morning. amitriptyline (Elavil) 25 mg tablet TAKE 1 TABLET BY MOUTH at 8pm FLUoxetine (PROzac) 20 mg capsule 20 mg once daily in the morning. nicotine (Nicoderm CQ) 7 mg/24 hr patch APPLY 1 (ONE) patch to the skin DAILY omega 0-lno-eiy-fish oil 300-1,000 mg capsule,delayed release(DR/EC) [DISCONTINUED] amLODIPine (Norvasc) 5 mg tablet Take 10 mg by mouth in the morning. [DISCONTINUED] baclofen (Lioresal) 10 mg tablet [DISCONTINUED] losartan (Cozaar) 50 mg tablet Take 100 mg by mouth at bedtime. No current facility-administered medications on file prior to visit. Physical Exam: Constitutional: Appearance: Normal appearance. Without apparent distress, obese, chronically ill HENT: Head: Normocephalic and atraumatic. Nose: Nose normal. Mouth/Throat: Mouth: Mucous membranes are moist. Eyes: Extraocular Movements: Extraocular movements intact. Conjunctiva/sclera: Conjunctivae normal. Neck: Vascular: No JVD. Cardiovascular: Rate and Rhythm: Normal rate and regular rhythm. Pulses: Dorsalis pedis pulses are 3 on the right side and 3on the left side. Posterior tibial pulses are 3 on the right side and 3 on the left side. Heart sounds: Normal heart sounds, S1 normal and S2 normal. Pulmonary: Effort: Pulmonary effort is normal. Breath sounds: Normal breath sounds. Abdominal: General: Bowel sounds are normal. Palpations: Abdomen is soft. Musculoskeletal: General: Normal range of motion. Cervical back: Normal range of motion. Right lower leg: No edema. Left lower leg: No edema. Skin: General: Skin is warm and dry. Capillary Refill: Capillary refill takes less than 2 seconds. Neurological: General: No focal deficit present. Mental Status: She is alert and oriented to person, place, and time. Psychiatric: Mood and Affect: Mood normal. Behavior: Behavior normal. Thought Content: Thought content normal. Judgment: Judgment normal. Labs: 04/21/22- renal function normal, liver function stable Chol 247, HDL 46, Trig 102, LDL 180.6 03/31/22 CBC normal Renal function normal K+ normal Liver function normal 04/2021: Cholesterol 150 - 200 mg/dL 215 High Triglycerides 27 - 150 mg/dL 123 HDL Cholesterol >39 mg/dL 48 Comment: VLDL 0 - 30 mg/dL 25 LDL (calc) <130 mg/dL 142 High Last lab values have been reviewed CV Testing: Lexiscan stress was reportedly without evidence of ischemia on imaging or EKG portion. Echo was unremarkable. No echocardiogram results found for the past 12 months Assessment/Plan: Factor 5 Leiden mutation, heterozygous (CMS/HCC) F/u with PCP [facility] (dyspnea on exertion) stable Chronic pain F/u with PCP Essential hypertension Hypertension is well controlled 125/82 Continue losartan, amlodipine Atypical chest pain stable Mixed hyperlipidemia PCP started pt on lipitor 20 mg for HPL- Recommend repeat Lipid and liver function (more content not included)... [facility]04[facility]19[facility]23 [facility] NoteHypertension is well controlled 125/82 Continue losartan, [facility] NoteF/[facility] with [facility]CP[facility] NotePsych Progress Note Time In: 11:00 AM Time Out: 11:59 AM HPI Present at Visit: Patient was present via Webex Location of Service: Clinician at Office and Patient at home connecting via [employer]. Current Presenting Symptoms/Problems: Mood: Sadness and Anhedonia Anxiety: Generalized worry Trauma/Abuse: Previously reported in DA, no knew incidents reported. Cognition: No agitation, No paranoia, and No wandering Sleep: Multiple awakenings and Difficulty due to pain Lifestyle Habits: No regular exercise and Typical day lacks structure Medication Compliance: N/A Onset/Timing: The patient reports that emotional and physical symptoms began at least 12 years ago after the procedure for the Essure sterilization device. She began have multiple health problems that lead to multiple procedures. Context: The patient shared that her surgery is rescheduled for July 05. She talked about having her son's best friend potentially coming to live with her because he has been in the foster care system for the last year+. Severity: Moderate Individualized Service Plan (ISP): Problem: I want to figure out ways to deal with everything. Dates: Start: 12/08/21 Problem: Acute or Chronic Trauma Reaction Dates: Start: 12/08/21 Disciplines: Interdisciplinary Goal: GOAL: Eliminate or reduce the negative impact trauma related symptoms and chronic pain have on social, occupational, and family functioning Dates: Start: 12/08/21 Expected End: 12/06/22 Disciplines: Interdisciplinary Goal: OBJ: Patient will practice breathing and mindfulness for 10 minutes, 1-2 times per day Dates: Start: 12/08/21 Expected End: 12/06/22 Disciplines: Interdisciplinary Goal: OBJ: Patient will experience a reduction in exaggerated beliefs about self and others that interfere with trauma resolution as evidenced by self-report over the next year Dates: Start: 12/08/21 Expected End: 12/06/22 Disciplines: Interdisciplinary Goal: OBJ: Patient will identify 3 trauma related cognitive distortions and discussed ways to reframe or stop. Dates: Start: 12/08/21 Expected End: 12/06/22 Disciplines: Interdisciplinary Intervention: Establish rapport with the client toward building a therapeutic alliance Dates: Start: 12/08/21 Intervention: Explore the client???s recollection of the facts of the traumatic incident, his/her cognitive and emotional reactions at the time; assess history of the client???s PTSD symptoms and their impact on functioning Dates: Start: 12/08/21 Intervention: Educate the client about how effective treatments for PTSD help address the cognitive, emotional, and behavioral consequences of PTSD using cognitive and behavioral therapy approaches Dates: Start: 12/08/21 Intervention: Teach the client calming skills (e.g., breathing retraining, relaxation, calming self-talk) to use in and between sessions when feeling overly distressed Dates: Start: 12/08/21 Intervention: Teach the client the relationship between thoughts, behaviors, and emotions associated with the trauma Dates: Start: 12/08/21 Intervention: Using Cognitive Therapy techniques, explore the client???s self-talk and beliefs about self, others, and the future that are a consequence of the trauma (e.g., themes of safety, trust, power, control, esteem, and intimacy) Dates: Start: 12/08/21 Intervention: Utilize Eye Movement Desensitization and Reprocessing (EMDR) to reduce the client???s emotional reactivity to the traumatic event and reduce PTSD symptoms Dates: Start: 12/08/21 Intervention: Teach mindfulness meditation to help client recognize negative thought processes associated with PTSD and change the relationship with these thoughts by accepting them and not reacting to, [id number]-[id number] mental phenomena Dates: Start: 12/08/21 Progress Toward ISP Goals/Objectives: The patient appears to feel more motivated by being able to help her son's friend. This appears to give her a sense of use and purpose that she has been missing while coping her he health concerns. Therapeutic Interventions Provided: Discussed rationale, risks, benefits and alternatives, Motivational Interviewing, Psychoeducation, and Relaxation Therapy Response to Intervention: Agreeable Overall Assessment of Progress: The patient's progress is slow due to her serious ongoing medical concerns. Being able to help her son's friend seems to be giving her some motivation. She is hoping her brain surgery will help her to be able to get off some of her medications and be able to work again. Mental Status Exam Level of Alertness: alert Appearance: dressed appropriately Eye Contact: normal Build/Stature: Could not observe due to being a telehealth session. Posture: Could not observe due to being a telehealth session. Muscle Tone: Could not observe due to being a telehealth session. Gait and Ambulation: Could not observe due to being a telehealth session. Attitude (more content not included)...[facility] 05-02-2022 NotePsych Progress Note Time In: 11:45 AM Time Out: 12:33 PM HPI Present at Visit: Patient was present via Webex Location of Service: Clinician at Office and Patient at home connecting via [employer]. Current Presenting Symptoms/Problems: Mood: Sadness and Anhedonia Anxiety: Generalized worry Trauma/Abuse: Previously reported in DA, no knew incidents reported. Cognition: No agitation, No paranoia, and No wandering Sleep: Multiple awakenings and Difficulty due to pain Lifestyle Habits: No regular exercise and Typical day lacks structure Medication Compliance: N/A Onset/Timing: The patient reports that emotional and physical symptoms began at least 12 years ago after the procedure for the Essure sterilization device. She began have multiple health problems that lead to multiple procedures. Context: The patient shared that her surgery was cancelled again. She continues to express her frustration in navigating and being at the mercy of the the healthcare system. Severity: Moderate Individualized Service Plan (ISP): Problem: I want to figure out ways to deal with everything. Dates: Start: 12/08/21 Problem: Acute or Chronic Trauma Reaction Dates: Start: 12/08/21 Disciplines: Interdisciplinary Goal: GOAL: Eliminate or reduce the negative impact trauma related symptoms and chronic pain have on social, occupational, and family functioning Dates: Start: 12/08/21 Expected End: 12/06/22 Disciplines: Interdisciplinary Goal: OBJ: Patient will practice breathing and mindfulness for 10 minutes, 1-2 times per day Dates: Start: 12/08/21 Expected End: 12/06/22 Disciplines: Interdisciplinary Goal: OBJ: Patient will experience a reduction in exaggerated beliefs about self and others that interfere with trauma resolution as evidenced by self-report over the next year Dates: Start: 12/08/21 Expected End: 12/06/22 Disciplines: Interdisciplinary Goal: OBJ: Patient will identify 3 trauma related cognitive distortions and discussed ways to reframe or stop. Dates: Start: 12/08/21 Expected End: 12/06/22 Disciplines: Interdisciplinary Intervention: Establish rapport with the client toward building a therapeutic alliance Dates: Start: 12/08/21 Intervention: Explore the client???s recollection of the facts of the traumatic incident, his/her cognitive and emotional reactions at the time; assess history of the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 Strip Mill Inspector Relationship Specialty Start Date End Date Shad Prieto APRN-CNP [address] [place] [id number] PCP - General Primary Care 12/06/21 Goals (unrecognized section and content) Goals may be documented in a n alternate sectionNo InformationNo InformationNo InformationNot on filedocumented as of this encounterNot on filedocumented as of this encounter REASON FOR VISIT (unrecogniz ed section and content) ORDERS FOLLOWING AN EGDPatie nt is here for a follow up from an EGDcontact with flu A, headache, runny nose FOR RECORDS PERTAINING TO PATIENTS WHO ARE OR HAVE BEEN ENROLLED IN A CHEMICAL DEPENDENCY/SUBSTANCEABUSE PROGRAM, SOME INFORMATION MAY BE OMITTED. This clinical summary was aggregated from multiple sources. Caution should be exercised in using it in the provision of clinical care. This summary normalizes information from multiple sources, and as a consequence, information in this document may materially change the coding, format and clinical context of patient data. In addition, data may be omitted in some cases. CLINICAL DECISIONS SHOULD BE BASED ON THE PRIMARY CLINICAL RECORDS. [facility]. provides no warranty or guarantee of the accuracy or completeness of information in this document.
--- NOTE | 2023-04-12 09:42 | XR_ITS ---
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 The lungs are clear. There is no evidence of pleural effusion or pneumothorax. XR/XR chest 2V IMPRESSION: Chest radiograph is within normal limits. Electronically authenticated by: GIOVANNY MIRZA Date: 04/12/2023 09:56
== END 2023-04-12 09:37 | disposition home or self-care (01) ==
LOC: RAD 09:36
PROVIDERS: PCP Nurse Practitioner Primary Care; Visit Provider Nurse Practitioner Primary Care
DX: R05.1 Acute cough (principal)
CPT/HCPCS: 71046

== ENCOUNTER 2023-10-29 08:18 | Outpatient (OUT) | payer MEDICAID, SELFPAY ==
--- OUTSIDE RECORDS SUMMARY | 2023-10-29 08:40 | XMS_ITS | CCD ---
Author Organization [facility] CliniSymd Care Team Providers Care Ore Charger Name Role Phone DO Ron Wallace Attending Provider [phone] NON STAFF Primary Care Provider Unavailabl e [...] GUIDRY ., DR OMAR Benitez Consulting Unavailable [facility] Attending Unava ilable [facility] Admitting Unava ilable SHAMMO, SHAD Primary Care Unavailable IRAM ROTH Consulting Unavailable IRAM ROTH Attending Unavailable [...] Primary Care Unavailable JES, QUIRINO Admitting Unavailable WEST, DR MARCE Marion Consulting Unavailable JES, QUIRINO [...] Joe Clarke Attending Unavailab Albaro Joseph Unavailable Judy Mtzdoruslan Attending Unavailable Ngirabakgirish, Kadori Primary Care Unavailable Kisha Barkley Unavailable Shammo GAGE MAKER-CHURCH OFFICIAL, Shad Primary Care Provider [phone] DB RIVERA Attending Unavailable SHAMMO, SHAD Referring Unavailable SHAMMO, SHAD Primary Care Unavailable LIZZ GUTIÉRREZ Attending Unavailable SHAMMO, SHAD Referring Unavailable SHAMMO, SHAD Primary Care Unavailable DB RIVERA Attending Unavailable DB RIVERA Referring Unavailable SHAMMO, SHAD Primary Care Unavailable MARLALIZZ N Referring Unavailable SHAMMO, SHAD Primary Care Unavailable SHAMMO, SHAD Referring Unavailable SHAMMO, SHAD Primary Care Unavailable DB RIVERA Admitting Unavailable DB RIVERA Attending Unavailable SHAMMO, SHAD Primary Care Unavailable QUIRINO ANDRE Attending Unavailable Allergies Allergy Classification Reported Allergen(s) Allergy Type Date of Onset Reaction(s) Facility (2 sources) DULoxetine Drug Allergy 12-21-19 [facility] Repository (5 sources) Leucine; Translations: [NICKEL] Drug Allergy 08-05-19 19 [facility] Repository (4 sources) Penicillin Drug Allergy 05-28-19 21 Unknown [facility] Repository (11 sources) DULoxetine; Translations: [duloxetine] Drug Allergy 12-29-[address] [facility] (12 sources) Naproxen; Translations: [naproxen] Drug Allergy 06-09-19 17 Hives [facility] (9 sources) Penicillins; Translations: [Penicillins] Allergy to substance 03-20-19 17 Shortness Of Breath, Rash [facility] (1 source) Unable to Assess Drug allergy (disorder) 12-21-19 [facility] Repository (3 sources) penicillAMINE Drug Allergy anaphylaxis [facility] (4 sources) nickel Drug Allergy 08-05-19 anaphylaxis [facility] (1 source) Bee pollen; Translations: [BEE POLLEN] Propensity to adverse reactions to drug (disorder) 01-12-20 [facility] Repository Medications Current Medications Medication Drug Class(es) Dates Sig (Normalized) Sig (Original) acetaminophen 500 mg oral tablet (6 sources) Start: 10-17-2021 take 1 tablet by mouth every six hours as needed for pain acetaminophen (TYLENOL EXTRA STRENGTH) 500 mg tablet Take 1 tablet (500 mg total) by mouth every 6 (six) hours as needed for pain. 30 tablet 0 10/17/2021 Active Tylenol prn Acti ve [id number] actuat albuterol 0.09 mg/actuat metered dose inhaler (1 source) beta2-Adrenergic Agonist Start: 03-09-2023 take 2 puff(s) by inhalation every four to six hours as needed Albuterol Sulfate HFA 108 (90 Base) MCG/ACT 2 puffs as needed Inhalation every 4-6 hours for 14 days Mar, Active amitriptyline hydrochloride 50 mg oral tablet (6 sources) Tricyclic Antidepressant Start: 11-29-2022 amitriptyline (ELAVIL) 50 mg tablet Indications: Fibromyalgia One capsule at 8 PM each night 90 tablet 1 11/29/2022 Active take 1 tablet by roselyn th every twenty-four hours Amitriptyline HCl 25 MG 1 tablet at bedtime Orally Once a day Active amLODIPine 5 mg oral tablet (3 sources) Dihydropyridine Calcium Channel Estella Start: 12-25-2021 take 2 tablets by mouth once daily amLODIPine (NORVASC) 5 mg tablet Indications: hypertension Take 2 tablets (10 mg total) by mouth nightly Indications: high blood pressure. 0 12/25/2021 Active atorvastatin 20 mg oral tablet (7 sources) HMG-CoA Reductase Inhibitor Start: 04-24-2022 take [...] Oil Active FLUoxetine 20 mg oral capsule (3 sources) Serotonin Reuptake Inhibitor Start: 023 take 1 capsule by mouth in the morning FLUoxetine (PROzac) 20 mg capsule Indications: Fibromyalgia Take 1 capsule (20 mg total) by mouth in the morning. 90 capsule 1 11/29/2022 Active fluticasone / salmeterol (3 sources) Corticosteroid, beta2-Adrenergic Agonist take 1 puff(s) by inhalation in the morning fluticasone propion-salmeteroL (ADVAIR) 100-50 mcg/dose DISKUS Inhale 1 puff in the morning and 1 puff before bedtime. 0 Active losartan potassium 100 mg oral tablet (7 sources) Angiotensin 2 Receptor Estella Start: 023 take 100 mg by mouth once daily Losartan Active 100 MG PO Daily September 12, 2022 12:00am Start: 12-05-2021 take 2 tablets by mo [facility] once daily losartan (COZAAR) 50 mg tablet Take 2 tablets (100 mg total) by mouth nightly. 0 12/05/2021 Active Losartan Potassi um Active methylPREDNISolone 4 mg oral tablet (1 source) Corticosteroid Start: 03-09-2023 methylPREDNISolone 4 MG as directed Orally for 6 Mar, Active naloxone hydrochloride 40 mg/ml nasal spray (3 sources) Opioid Antagonist Start: 07-07-2022 naloxone (NARCAN) 4 mg/actuation spray,non-aerosol nasal spray Administer 1 spray (4 mg total) into alternating nostrils as needed for opioid reversal. 1 each 0 07/07/2022 Active omega 7-mfy-kyr-fish oil (FISH OIL) 300-1,000 mg capsule,delayed release(DR/EC) (3 sources) Start: 05-22-2022 omega 5-hok-lpl-fish oil (FISH OIL) 300-1,000 mg capsule,delayed release(DR/EC) Take 1 capsule by mouth in the morning. 0 05/22/2022 Active [place]-3 Fatty Acids-Fish Oil (1 source) Start: 09-12-2022 take 1 capsule by mouth once daily [place]-3 Fatty Acids-Fish Oil Active 1 CAP PO Daily September 12, 2022 12:00am omeprazole 40 mg delayed release oral capsule (6 sources) Proton Pump Inhibitor Start: 12-07-2021 take [...] mg tablet,disintegrating Dissolve on tongue. 0 Active solifenacin succinate 5 mg oral tablet (1 source) Cholinergic Muscarinic Antagonist Start: 04-25-2023 take 1 tablet by mouth in the morning solifenacin (VESICARE) 5 mg tablet Take 1 tablet (5 mg total) by mouth in the morning. 30 tablet 4 04/25/2023 Active tiZANidine 2 mg oral tablet (3 sources) Central alpha-2 Adrenergic Agonist Start: 11-29-2022 tiZANidine (ZANAFLEX) 2 mg tablet Indications: Fibromyalgia One tab at 8:00 p.m.each night 90 tablet 1 11/29/2022 Active Problems Active Problems Problem Classification Problem Date Documented Da te Episodic/Chronic Abdominal hernia (1 source) Diaphragmatic hernia without obstruction or gangrene Episodic Administrative/social admission (4 sources) Encounter for disability determination; Translations: [ENCOUTER DISABILITY DETERMINATION] Onset: 3 Episodic Coagulation and hemorrhagic disorders (6 sources) Heterozygous Factor V Leiden mutation; Translations: [Activated protein C resistance] Onset: 7 06-08-2016 Chronic Disorders of lipid metabolism (6 sources) Hyperlipidemia, unspecified; Translations: [Mixed hyperlipidemia] Onset: 3 Chronic Endometriosis (3 sources) Endometriosis (clinical); Translations: [Endometriosis, unspecified] Onset: 7 06-08-2016 Chronic Esophageal disorders (13 sources) Gastroesophageal reflux disease; Translations: [Gastro-esophageal reflux disease without esophagitis] Onset: 7 Chronic Essential hypertension (3 sources) Essential (primary) hypertension; Translations: [ESSENTIAL PRIMARY HYPERTENSION] Onset: 2 Chronic Genitourinary symptoms and ill-defined conditions (9 sources) Mixed urinary incontinence; Translations: [Mixed incontinence] Onset: 3 02-08-2023 Chronic Headache; including migraine (3 sources) Migraine; Translations: [Migraine, unspecified, not intractable, without status migrainosus] Onset: 7 06-08-2016 Chronic Immunizations and screening for infectious disease (1 source) Contact with and (suspected) exposure to other viral communicable diseases Episodic Mood disorders (2 sources) Major depressive disorder, single episode, unspecified; Translations: [Major depressive disorder. single episode. unspecified] Onset: 3 Chronic Nonspecific chest pain (7 sources) Other chest pain; Translations: [OTHER CHEST PAIN] Onset: 2 Episodic Other and ill-defined cerebrovascular disease (3 sources) Intracranial aneurysm; Translations: [Cerebral aneurysm, nonruptured] Onset: 2 07-05-2022 Chronic Other connective tissue disease (4 sources) Fibromyalgia; Translations: [FIBROMYALGIA] Onset: 2 Episodic Other diseases of kidney and ureters (1 source) Other specified disorders of kidney and ureter; Translations: [Other specified disorders of kidney and ureter] Onset: 4 Chronic Other gastrointestinal disorders (1 source) Dysphagia, unspecified; Translations: [Dysphagia, unspecified] Onset: 3 Episodic Other nervous system disorders (1 source) Chronic pain syndrome; Translations: [CHRONIC PAIN SYNDROME] Onset: 3 Chronic Other nervous system disorders (1 source) [...] PAIN] Onset: 12-10-2021 Episodic Biliary tract disease (3 sources) Cholelithiasis without obstruction; Translations: [Calculus of gallbladder without cholecystitis without obstruction] Onset: 04-07-2019 04-07-2019 Episodic Epilepsy; convulsions (3 sources) Seizure; Translations: [Unspecified convulsions] Onset: 06-08-2016 06-08-2016 Episodic Intestinal infection (1 source) Viral intestinal infection, unspecified; Translations: [VIRAL INTESTINAL INFECTION UNSPEC] Onset: 08-01-2021 Episodic Mood disorders (3 sources) Mood disorders Onset: 07-05-2022 07-05-2022 Nausea and vomiting (3 sources) Nausea with vomiting, unspecified; Translations: [NAUSEA WITH VOMITING UNSPECIFIED] Onset: 07-28-2021 Episodic Other connective tissue disease (3 sources) Pain in left hand; Translations: [PAIN IN LEFT HAND] Onset: 09-23-2021 Episodic Other connective tissue disease (3 sources) Fibromyalgia; Translations: [Fibromyalgia] Onset: 06-08-2016 06-08-2016 Episodic Other gastrointestinal disorders (3 sources) Dysphagia; Translations: [Dysphagia, unspecified] Onset: 06-08-2016 06-08-2016 Episodic Other lower respiratory disease (4 sources) Other forms of dyspnea; Translations: [OTHER FORMS OF DYSPNEA] Onset: 01-31-2022 Episodic Other nervous system disorders (1 source) Ataxia, unspecified; Translations: [Ataxia, unspecified] Onset: 12-20-2021 Episodic Other screening for suspected conditions (not mental disorders or infectious disease) (6 sources) Encounter for screening mammogram for malignant neoplasm of breast; Translations: [Encounter for screening for other suspected endocrine disorder] Onset: 11-03-2021 Episodic Residual codes; unclassified (3 sources) Family history of stroke due to aneurysm; Translations: [Family history of stroke] Onset: 03-16-2022 03-16-2022 Episodic Unclassified (1 source) LOW BACK PAIN, UNSPECIFIED; Translations: [LOW BACK PAIN, UNSPECIFIED] Onset: 01-10-2022 Unclassified (1 source) Contact with and (suspected) exposure to covid-19 Z20.822 Results Test Name Value Interpretation Reference Range Facility 37on 10-22-2023 37 Start taking hydrochlorothiazide daily in the morning for blood pressure Please have blood drawn next week to check kidney function and electrolytes and cholesterol level- so you must be fasting for labs Normal [facility] Office Visiton 10-22-2023 Follow-up visit [id number] Jt Francois 1980 F Date Provider Department Center 10/22/2023 QUIRINO GHOTRA Family History Problem Relation Age of Onset Heart attack Father Heart attack Paternal Grandfather Stroke Paternal Grandfather Family Status - Relation Status Age at Father Paternal Grandfather Level of Service:97005 OR OFFICE/OUTPATIENT ESTABLISHED LOW MDM 20 MIN Normal [facility] CBC AND AUTO DIFFon 03-12-19 24 ABSOLUTE BASOPHIL 0.1 X10E9/L Normal 0.0-0.2 [facility] Comment on above: Performed By: #### C BCA, CMP #### [facility] ([id number]) [address], [address] [place] [address] ABSOLUTE NEUTROPHIL 5.8 X10E9/L Normal 1.5-6.6 [facility] Comment on above: Performed By: #### C BCA, CMP #### [facility] ([id number]) [address] [place] [address], [address] [place] [address] Basophils/100 WBC (Bld) 1.0 % Normal [facility] Comment on above: Performed By: #### C BCA, CMP #### [facility] ([id number]) [address], [address] [place] [address] Eosinophils (Bld) [#/Vol] 0.2 10*3/uL Normal 0.0-0.4 [facility] Comment on above: Performed By: #### C BCA, CMP #### [facility] ([id number]) [address] [facility] [address] [place] [address] Eosinophils/100 WBC (Bld) 2.3 % Normal [facility] Comment on above: Performed By: #### C MARIAM, CMP #### [facility] ([id number]) [address] [address] [place] [address] Erythrocyte distribution width (RBC) [Ratio] 14.3 % Normal 11.5-15.0 [facility] Comment on above: Performed By: #### C MARIAM, CMP #### [facility] ([id number]) [address] [address] [place] [address] Hematocrit (Bld) [Volume fraction] 42.2 % Normal 35-47 [facility] Comment on above: Performed By: #### C MARIAM, CMP #### [facility] ([id number]) [address] [address] [place] [address] Hemoglobin (Bld) [Mass/Vol] 14.4 g/dL Normal 11.7-15.5 [facility] Comment on above: Performed By: #### C BCA, CMP #### [facility] ([id number]) [address] [address] [place] [address] Lymphocytes (Bld) [#/Vol] 2.5 10*3/uL Normal 1.0-3.5 [facility] Comment on above: Performed By: #### C BCA, CMP #### [facility] ([id number]) [address] [address] [place] [address] Lymphocytes/100 WBC (Bld) 27.1 % Normal [facility] Comment on above: Performed By: #### C BCA, CMP #### [facility] ([id number]) [address], [address] [place] [address] MCH (RBC) [Entitic mass] 30.0 pg Normal 27-34 [facility] Comment on above: Performed By: #### C BCA, CMP #### [facility] ([id number]) [address], [address] [place] [address] MCHC (RBC) [Mass/Vol] 34.1 g/dL Normal 32-36 [facility] Comment on above: Performed By: #### C MARIAM, CMP #### [facility] ([id number]) [address], [address] [place] [address] MCV (RBC) [Entitic vol] 88 fL Normal 80-100 [facility] Comment on above: Performed By: #### C BCA, CMP #### [facility] ([id number]) [address], [address] [place] [address] Monocytes (Bld) [#/Vol] 0.6 10*3/uL Normal 0-0.9 [facility] Comment on above: Performed By: #### C BCA, CMP #### [facility] ([id number]) [address], [address] [place] [address] Monocytes/100 WBC (Bld) 6.5 % Normal [facility] Comment on above: Performed By: #### C BCA, CMP #### [facility] ([id number]) [address], [address] [place] [address] Neutrophils/100 WBC (Bld) 63.1 % Normal [facility] Comment on above: Performed By: #### C BCA, CMP #### [facility] ([id number]) [address], [address] [place] [address] Platelet mean volume (Bld) [Entitic vol] 8.2 fL Normal 7-12 [facility] Comment on above: Performed By: #### C BCA, CMP #### [facility] ([id number]) [address], [address] [place] [address] Platelets (Bld) [#/Vol] 296 10*3/uL Normal 150-450 [facility] Comment on above: Performed By: #### C BCA, CMP #### [facility] ([id number]) [address], [address] [place] [address] RBC COUNT 4.80 X10E12/L Normal 3.80-5.20 [facility] Comment on above: Performed By: #### C BCA, CMP #### [facility] ([id number]) [address] [address] [place] [address] WBC (Bld) [#/Vol] 9.1 10*3/uL Normal 4.0-11.0 [facility] Comment on above: Performed By: #### C BCA, CMP #### [facility] ([id number]) [address], [address] [place] [address] COMPREHENSIVE METABOLIC PANE Young 03-12-2023 Albumin [Mass/Vol] 3.7 g/dL Normal 3.2-5.3 [facility] Comment on above: Performed By: #### C BCA, CMP #### [facility] ([id number]) [address], [address] [place] [address] ALP [Catalytic activity/Vol] 103 U/L Normal 39-130 [facility] Comment on above: Performed By: #### C BCA, CMP #### [facility] ([id number]) [address], [address] [place] [address] ALT [Catalytic activity/Vol] 12 U/L Normal 0-31 [facility] Comment on above: Performed By: #### C BCA, CMP #### [facility] ([id number]) [address], [address] [place] [address] Anion gap [Moles/Vol] 7 mmol/L Normal 5-15 [facility] Comment on above: Performed By: #### C BCA, CMP #### [facility] ([id number]) [address], [address] [place] [address] AST [Catalytic activity/Vol] 13 U/L Normal 0-41 [facility] Comment on above: Performed By: #### C BCA, CMP #### [facility] ([id number]) [address], [address] [place] [address] Bilirubin [Mass/Vol] 0.8 mg/dL Normal 0.3-1.2 [facility] Comment on above: Performed By: #### C BCA, CMP #### [facility] ([id number]) [address], [address] [place] [address] Calcium [Mass/Vol] 8.7 mg/dL Normal 8.5-10.5 [facility] Comment on above: Performed By: #### C BCA, CMP #### [facility] ([id number]) [address], [address] [place] [address] Chloride [Moles/Vol] 107 mmol/L Normal 98-109 [facility] Comment on above: Performed By: #### C BCA, CMP #### [facility] ([id number]) [address], [address] [place] [address] CO2 [Moles/Vol] 30 mmol/L Normal 22-32 [facility] Comment on above: Performed By: #### C BCA, CMP #### [facility] ([id number]) [address], [address] [place] [address] Creatinine [Mass/Vol] 0.73 mg/dL Normal 0.40-1.00 [facility] Comment on above: Result Comment: METH OD TRACEABLE TO IDMS STANDARD Performed By: #### C BCA, CMP #### [facility] ([id number]) [address], [address] [place] [address] eGFR (CKD-EPI) NON-RACE DEPENDENT >90 Normal >59 [facility] Comment on above: Result Comment: Reported eGFR is based on the CKD-EPI 2020 equation that does not use a race coefficient. Performed By: #### C BCA, CMP #### [facility] ([id number]) [address], [address] [place] [address] Glucose [Mass/Vol] 92 mg/dL Normal 65-99 [facility] Comment on above: Performed By: #### C BCA, CMP #### [facility] ([id number]) [address], [address] [place] [address] Potassium [Moles/Vol] 3.9 mmol/L Normal 3.5-5.0 [facility] Comment on above: Performed By: #### C BCA, CMP #### [facility] ([id number]) [address], [address] [place] [address] Protein [Mass/Vol] 6.4 g/dL Normal 6.0-8.0 [facility] Comment on above: Performed By: #### C BCA, CMP #### [facility] ([id number]) [address], [address] [place] [address] Sodium [Moles/Vol] 144 mmol/L Normal 134-146 [facility] Comment on above: Performed By: #### C BCA, CMP #### [facility] ([id number]) [address] [address] [place] [address] Urea nitrogen [Mass/Vol] 9 mg/dL Normal 5-23 [facility] Comment on above: Performed By: #### C BCA, CMP #### [facility] ([id number]) [address] [place] [address] COVID + FLU Quick Testingon 03-01-2023 SARS-CoV-2 (COVID-19) RNA SARAH+probe Ql (Unsp spec) Negative [facility] Other COVID + FLU Quick Testing Negative [facility] Other CT ABDOMEN W WO CONTon 02-06 [...] Clarke MD on 02/06/2023 4:11 PM Normal [facility] 09-12-2022 L --- Specimen: [id number] Received: 09/12/22 Status: KASSIDY Camilo Num: [id number] Spec Type: Surgical Subm Dr: Siva You MD Tissues: A Esophagus Biopsy (ESOPHAGUS BX) Procedures: HE/Alfonso Gross/Micro L4 Age/ Patient Sex Location Account Attending Physician Araceli Francois 42/F [id number] Siva You MD SPEC NUM: [id number] RECD: 09/12/22 STATUS: KASSIDY CAMILO NUM: [id number] SHANNON: 09/12/22- DR: Siva You MD ENTERED: 09/12/[address]: SPEC TYPE: Surgical DEPT: S ORDERED: HE/2, Gross/Micro L4 ORDERED: HE/2, Gross/Micro L4 Pathological Diagnosis Esophagus, biopsy: - [...] reviewed. The microscopic examination confirms the diagnosis. Specimen: [id number] Received: 09/12/22 Status: KASSIDY Camilo Num: [id number] Spec Type: Surgical Subm Dr: Siva You MD Tissues: A Esophagus Biopsy (ESOPHAGUS BX) Procedures: HE/2, Gross/Micro L4 Patient: Araceli Francois [id number] (Continued) Specimen: [id number] Received: 09/12/22 (Continued) Signed (signature on file) Rory Jade MD 09/14/22 1155 Specimen: Received: 09/12/22 Status: KASSIDY Leslee Num: [id number] Spec Type: Surgical Subm Dr: Siva You MD Tissues: A Esophagus Biopsy (ESOPHAGUS BX) Procedures: BELGICA/Aflonso, Gross/Micro L4 Patient: Araceli Francois [id number] (Continued) Specimen: [id number] Received: 09/12/22 (Continued) CPT Codes 13898 Specimen: [id number] Received: 09/12/22 Status: KASSIDY Camilo Num: [id number] Spec Type: Surgical Subm Dr: Siva You MD Tissues: A Esophagus Biopsy (ESOPHAGUS BX) Procedures: [place] ESQUEDA/Eve L4 Patient: Araceli Francois [id number] (Continued) Signed (signature on file) Rory Jade MD 09/14/22 3703 [facility] LIPID PROFILEon 04-21-2022 CHOL-HDL RATIO NORM SEE BELOW Normal [facility] Comment on above: Result Comment: 3.3 - 4.4 LOW RISK 4.4 - 7.1 AVERAGE RISK 7.1 - 11.0 MODERATE RISK >11.0 HIGH RISK Performed By: #### L IPID, CMP #### [facility] [address] [address] [address] Edil Gayle Cholesterol [Mass/Vol] 247 mg/dL Critically high <=200 [facility] Comment on above: Performed By: #### L IPID, CMP #### [facility] [address] [address] [address] Edil Gayle Cholesterol in HDL [Mass/Vol] 46 mg/dL Normal 40-60 [facility] Comment on above: Performed By: #### L IPID, CMP #### [facility] [address] [address] [address] Edil Gayle Cholesterol in LDL [Mass/Vol] 180.6 mg/dL Normal [facility] Comment on above: Performed By: #### L IPID, CMP #### [facility] [address] [address] [address] Edil Gayle Cholesterol.total/C holesterol in HDL [Mass ratio] 5.4 {ratio} Normal [facility] Comment on above: Performed By: #### L IPID, CMP #### [facility] [address] [address] [address] Edil Gayle HDL NORMAL > or = 60 mg/dl - LO W CARDIOVASCULAR RISK <40 mg/dl - HIGH CARDIOVASCULAR RISK Normal [facility] Comment on above: Performed By: #### L IPID, CMP #### [facility] [address] [address] [address] Edil Gayle LDL CALC NORMAL SEE BELOW Normal [facility] [place] [facility] Comment on above: Result Comment: <100 mg/dl OPTIMAL 100 - 129 mg/dl NEAR OR ABOVE OPTIMAL 130 - 159 mg/dl BORDERLINE HIGH 160 - 189 mg/dl HIGH >190 mg/dl VERY HIGH Performed By: #### L IPID, CMP #### [facility] [address] [address] [address] Edil Gayle Triglyceride [Mass/Vol] 102 mg/dL Normal <=150 [facility] Comment on above: Performed By: #### L IPID, CMP #### [facility] [address] [place] [address] Dr. Edil Gayle VLDL CALC 20.4 mg/dL Normal [facility] Comment on above: Performed By: #### L IPID, CMP #### [facility] [address] [place] [address] Dr. Edil Gayle PROF 14(COMP METB)on 023 Albumin [Mass/Vol] 3.4 g/dL Normal 3.4-5.0 [facility] Comment on above: Performed By: #### L IPID, CMP #### [facility] [address] [place] [address] Dr. Edil Gayle Albumin/Globulin [Mass ratio] 0.9 {ratio} Normal [facility] Comment on above: Performed By: #### L IPID, CMP #### [facility] [address] [place] [address] Dr. Edil Gayle ALP [Catalytic activity/Vol] 117 U/L Critically high 46-116 [facility] Comment on above: Performed By: #### L IPID, CMP #### [facility] [address] [place] [address] Dr. Edil Gayle ALT [Catalytic activity/Vol] 25 U/L Normal 14-59 [facility] Comment on above: Performed By: #### L IPID, CMP #### [facility] [address] [place] [address] Dr. Edil Gayle Anion gap [Moles/Vol] 11.5 mmol/L Normal [facility] Comment on above: Performed By: #### L IPID, CMP #### [facility] [address] [place] [address] Dr. Edil Gayle AST [Catalytic activity/Vol] 16 U/L Normal 15-37 [facility] Comment on above: Performed By: #### L IPID, CMP #### [facility] [address] [place] [address] Dr. Edil Gayle Bilirubin [Mass/Vol] 0.4 mg/dL Normal 0.2-1.0 [facility] Comment on above: Performed By: #### L IPID, CMP #### [facility] [address] [place] [address] Dr. Edil Gayle Calcium [Mass/Vol] 8.9 mg/dL Normal 8.5-10.1 [facility] Comment on above: Performed By: #### L IPID, CMP #### [facility] [address] [place] [address] Dr. Edil Gayle Chloride [Moles/Vol] 106 mmol/L Normal 98-107 [facility] Comment on above: Performed By: #### L IPID, CMP #### [facility] [address] [place] [address] Dr. Edil Gayle CO2 [Moles/Vol] 29.8 mmol/L Normal 21.0-32.0 [facility] Comment on above: Performed By: #### L IPID, CMP #### [facility] [address] [place] [address] Dr. Edil Gayle Creatinine [Mass/Vol] 0.58 mg/dL Normal 0.55-1.02 [facility] Comment on above: Performed By: #### L IPID, CMP #### [facility] [address] [place] [address] Dr. Edil Gayle EGFR-AF CITIZEN OF [place] >60 Normal >=60 [facility] Comment on above: Performed By: #### L IPID, CMP #### [facility] [address] [place] [address] Dr. Edil Gayle EGFR-NON AF CITIZEN OF [place] >60 Normal >=60 [facility] Comment on above: Performed By: #### L IPID, CMP #### [facility] [address] [place] [address] Dr. Edil Gayle Globulin (S) [Mass/Vol] 3.6 g/dL Normal [facility] Comment on above: Performed By: #### L IPID, CMP #### [facility] [address] [place] [address] Dr. Edil Gayle Glucose [Mass/Vol] 103 mg/dL Normal 74-106 [facility] Comment on above: Performed By: #### L IPID, CMP #### [facility] [address] [place] [address] Dr. Edil Gayle Potassium [Moles/Vol] 4.3 mmol/L Normal 3.5-5.1 [facility] Comment on above: Performed By: #### L IPID, CMP #### [facility] [address] [place] [address] Dr. Edil Gayle Protein [Mass/Vol] 7.0 g/dL Normal 6.4-8.2 [facility] Comment on above: Performed By: #### L IPID, CMP #### [facility] [address] [place] [address] Dr. Edil Gayle Sodium [Moles/Vol] 143 mmol/L Normal 136-145 [facility] Comment on above: Performed By: #### L IPID, CMP #### [facility] [address] [place] [address] Dr. Edil Gayle Urea nitrogen [Mass/Vol] 12.0 mg/dL Normal 7.0-18.0 [facility] Comment on above: Performed By: #### L IPID, CMP #### [facility] [address] [place] [address] Dr. Edil Gayle Urea nitrogen/Creatinine [Mass ratio] 20.7 mg/mg Normal [facility] Comment on above: Performed By: #### L IPID, CMP #### [facility] [address] [place] [address] Dr. Edil Gayle CULTURE THROATon 04-03-2022 CULTURE THROAT Culture Observations : NORMAL RESPIRATORY JAYLEEN. Normal [facility] Comment on above: Performed By: #### F T4 #### [facility] [address] [place] [address] Dr. Edil Gayle RESPIRATORY PANEL PLUSon Adenovirus Not detected Normal NOT DETECTED [facility] Comment on above: Performed By: #### F T4 #### [facility] [address] [place] [address] Dr. Edil Velasco Parapertusis Not detected Normal NOT DETECTED [facility] Comment on above: Performed By: #### F T4 #### [facility] [address] [place] [address] Dr. Edil Velasco Pertussis Not detected Normal NOT DETECTED [facility] Comment on above: Performed By: #### F T4 #### [facility] [address] [place] [address] Dr. Edil Gayle Chlamydia Pneumoniae Not detected Normal NOT DETECTED [facility] Comment on above: Performed By: #### F T4 #### [facility] [address] [place] [address] Dr. Edil Gayle Coronavirus 229E Not detected Normal NOT DETECTED [facility] Comment on above: Performed By: #### F T4 #### [facility] [address] [place] [address] Dr. Edil Gayle Coronavirus HKU1 Not detected Normal NOT DETECTED [facility] Comment on above: Performed By: #### F T4 #### [facility] [address] [place] [address] Dr. Edil Gayle Coronavirus NL63 Not detected Normal NOT DETECTED [facility] Comment on above: Performed By: #### F T4 #### [facility] [address] [place] [address] Dr. Edil Gayle Coronavirus OC43 Not detected Normal NOT DETECTED [facility] Comment on above: Performed By: #### F T4 #### [facility] [address] [place] [address] Dr. Edil aGyle Influenza A H1 Not detected Normal NOT DETECTED [facility] Comment on above: Performed By: #### F T4 #### [facility] [address] [place] [address] Dr. Edil Gayle Influenza A H1 2009 Not detected Normal NOT DETECTED [facility] Comment on above: Performed By: #### F T4 #### [facility] [address] [place] [address] Dr. Edil Gayle Influenza A H3 Not detected Normal NOT DETECTED [facility] Comment on above: Performed By: #### F T4 #### [facility] [address] [place] [address] Dr. Edil Gayle Influenza B Not detected Normal NOT DETECTED [facility] Comment on above: Performed By: #### F T4 #### [facility] [address] [place] [address] Dr. Edil Gayle Metapneumovirus Not detected Normal NOT DETECTED [facility] Comment on above: Performed By: #### F T4 #### [facility] [address] [place] [address] Dr. Edil Gayle Mycoplas. Pneumoniae Not detected Normal NOT DETECTED [facility] Comment on above: Performed By: #### F T4 #### [facility] [address] [place] [address] Dr. Edil Gayle Parainfluenza 1 Not detected Normal NOT DETECTED [facility] Comment on above: Performed By: #### F T4 #### [facility] [address] [place] [address] Dr. Edil Gayle Parainfluenza 2 Not detected Normal NOT DETECTED [facility] Comment on above: Performed By: #### F T4 #### [facility] [address] [place] [address] Dr. Edil Gayle Parainfluenza 3 Not detected Normal NOT DETECTED [facility] Comment on above: Performed By: #### F T4 #### [facility] [address] [place] [address] Dr. Edil Gayle Parainfluenza 4 Not detected Normal NOT DETECTED [facility] Comment on above: Performed By: #### F T4 #### [facility] [address] [place] [address] Dr. Edil Gayle Rhino/Enterovirus Not detected Normal NOT DETECTED [facility] Comment on above: Performed By: #### F T4 #### [facility] [address] [place] [address] Dr. Edil Gayle RP2 Header 1 RESPIRATORY PANEL: VIRUSES Normal [facility] Comment on above: Performed By: #### F T4 #### [facility] [address] [place] [address] Dr. Edil Gayle RP2 Header 2 RESPIRATORY PANEL: BACTERIA Normal [facility] Comment on above: Performed By: #### F T4 #### [facility] [address] [place] [address] Dr. Edil Gayle RSV Not detected Normal NOT DETECTED [facility] Comment on above: Performed By: #### F T4 #### [facility] [address] [place] [address] Dr. Edil Gayle SARS-CoV-2 (COVID-19) RNA SARAH+probe Ql (Unsp spec) Not detected Normal NOT DETECTED [facility] Comment on above: Performed By: #### F T4 #### [facility] [address] [place] [address] Dr. Edil Gayle STREPT SCREENon 04-03-2022 STREP SCREEN A Negative Normal NEGATIVE [facility] Comment on above: Performed By: #### F T4 #### [facility] [address] [place] [address] Dr. Edil Gayle ECHOCARDIO M/2D COMPLETEon 1 04-03-2021 ECHOCARDIO M/2D COMPLETE Patient: ARACELI FRANCOIS Exam Date: 01/31/2022 : 1980 Gender:F Ordering : QUIRINO ANDRE Admission #: [id number] Family : Order #: [id number] CLICK HERE TO VIEW EXAM ECHOCARDIOGRAM REPORT [...] Borges M.D. on 02/07/2022 at 09:43 Normal [facility] STRESS/REST MULTIon 01-31 OR STRESS/REST MULTI Patient: ARACELI FRANCOIS Exam Date: 01/31/2022 : 1980 Gender:F Ordering : QUIRINO GillMoira JES Admission #: [id number] Family : Order #: [id number] CLICK HERE TO VIEW EXAM RADIOLOGY REPORT [...] Lyn MD on 02/02/2022 at 11:41 Normal [facility] MR head/brain wo/w conon MR head/brain wo/w con [facility] [address] [place] [address] MRI Report Signed Patient: Araceli Francois MR#: [id number] : 1980 Acct:[id number] Age/Sex: 41 / F ADM Date: 12/20/21 Loc: MR Room: Type: [facility] Attending Dr: Ron Wallace DO Copies to: [...] Efrain Chapman M.D.12/21/2021 8:39 AM Dictation Location: [place] [address] Transcribed By: [facility] 12/21/21838 Dictated By: Efrain Chapman II, MD 12/21/21815 Signed By: 12/21/21838 [facility] XR LSPINE W_OBLS AND FLEX_EX Ton 12-21-2021 [...] by: MARCE LYN Date: 2021-12-21 07:11 Normal [facility] US SINGLE QUAD RT UPPERon US SINGLE [...] by: MARCE LYN Date: 2021-12-11 08:32 Normal [facility] XR CHEST 2 Von 12-06-2021 XR CHEST [...] MARCE LYN Date: 2021-12-06 15:35 Normal [facility] MAMM SCREEN 3D TISHA CADon 11-08-2021 MAMM SCREEN 3D TISHA CAD Patient: ARACELI FRANCOIS Exam Date: 11/08/2021 : 1980 Gender:F Ordering : SHAD [employer]-C Admission #: [id number] Family : Order #: [id number] CLICK HERE TO VIEW EXAM RADIOLOGY REPORT PROCEDURE: MAMMOGRAM SCREENING 3D BILATERAL CAD COMPARISON: MAMM SCREEN 3D TISHA CAD, 07/19/2020. INDICATIONS: Screening mammography Calculator Name NCI Breast Cancer Risk Assessment Tool 5 Year Breast Cancer Risk 0.50% Lifetime Breast Cancer Risk 6.50% Personal Breast Cancer No Personal Ovarian Cancer No Treatments None Family Cancers None LOCATION: [facility] BREAST COMPOSITION: Scattered areas fibroglandular density. [...] MD on 11/09/2021 at 07:53 Normal [facility] CBC AUTO DIFFon 11-01-2021 BASO # 0.1 103/ul Normal 0.0-0.1 [facility] Comment on above: Performed By: #### F T4 #### [facility] [address] [place], [place] [address] Dr. Edil Gayle Basophils/100 WBC (Bld) 1.2 % Normal 0.2-2.0 [facility] Comment on above: Performed By: #### F T4 #### [facility] [address] [place] [address] Dr. Edil Gayle EO # 0.3 103/ul Normal 0.0-0.7 [facility] Comment on above: Performed By: #### F T4 #### [facility] [address] [place] [address] Dr. Edil Gayle Eosinophils/100 WBC (Bld) 2.7 % Normal 0.9-7.0 [facility] Comment on above: Performed By: #### F T4 #### [facility] [address] [place] [address] Dr. Edil Gayle Erythrocyte distribution width (RBC) [Ratio] 12.8 % Normal 11.0-15.0 [facility] Comment on above: Performed By: #### F T4 #### [facility] [address] [place] [address] Dr. Edil Gayle Hematocrit (Bld) [Volume fraction] 46.5 % Normal 36.0-48.0 [facility] Comment on above: Performed By: #### F T4 #### [facility] [address] [place] [address] Dr. Edil Gayle Hemoglobin (Bld) [Mass/Vol] 15.5 g/dL Normal 12.0-16.0 [facility] Comment on above: Performed By: #### F T4 #### [facility] [address] [place] [address] Dr. Edil Gayle IG # 0.02 10e3/ul Normal 0.00-0.03 [facility] Comment on above: Performed By: #### F T4 #### [facility] [address] [place] [address] Dr. Edil Gayle IG % 0.2 % Normal 0.0-0.5 [facility] Comment on above: Performed By: #### F T4 #### [facility] [address] [place] [address] Dr. Edil Gayle LYMPH # 2.1 103/ul Normal 1.2-3.8 [facility] Comment on above: Performed By: #### F T4 #### [facility] [address] [place] [address] Dr. Edil Gayle Lymphocytes/100 WBC (Bld) 20.4 % Critically low 20.5-60.0 [facility] Comment on above: Performed By: #### F T4 #### [facility] [address] [place] [address] Dr. Edil aGyle MANUAL DIFF REQ NO Normal [facility] Comment on above: Performed By: #### F T4 #### [facility] [address] [place] [address] Dr. Edil Gayle MCH (RBC) [Entitic mass] 30.3 pg Normal 26.7-34.0 [facility] Comment on above: Performed By: #### F T4 #### [facility] [address] [place] [address] Dr. Edil Gayle MCHC (RBC) [Mass/Vol] 33.3 g/dL Normal 29.9-35.2 [facility] Comment on above: Performed By: #### F T4 #### [facility] [address] [place] [address] Dr. Edil Gayle MCV (RBC) [Entitic vol] 90.8 fL Normal 81.0-99.0 [facility] Comment on above: Performed By: #### F T4 #### [facility] [address] [place] [address] Dr. Edil Gayle MONO # 0.5 103/ul Normal 0.3-0.8 [facility] Comment on above: Performed By: #### F T4 #### [facility] [address] [place] [address] Dr. Edil Gayle Monocytes/100 WBC (Bld) 5.2 % Normal 1.7-12.0 [facility] Comment on above: Performed By: #### F T4 #### [facility] [address] [place] [address] Dr. Edil Gayle NEUT # 7.3 103/ul Critically high 1.4-6.5 [facility] Comment on above: Performed By: #### F T4 #### [facility] [address] [place] [address] Dr. Edil Gayle Neutrophils/100 WBC (Bld) 70.3 % Normal 43.0-75.0 [facility] Comment on above: Performed By: #### F T4 #### [facility] [address] [place] [address] Dr. Edil Gayle Platelet mean volume (Bld) [Entitic vol] 8.8 fL Critically low 9.5-13.5 [facility] Comment on above: Performed By: #### F T4 #### [facility] [address] [address] [address] Edil Gayle PLT 294 103/ul Normal 150-450 [facility] Comment on above: Performed By: #### F T4 #### [facility] [address] [place] [address] Dr. Edil Gayle RBC 5.12 106/ul Normal 4.20-5.40 [facility] Comment on above: Performed By: #### F T4 #### [facility] [address] [place] [address] Dr. Eidl Gayle WBC 10.3 103/ul Normal 4.0-11.0 [facility] Comment on above: Performed By: #### F T4 #### [facility] [address] [place] [address] Dr. Edil Gayle FREE T4on 11-01-2021 Free T4 [Mass/Vol] 0.88 ng/dL Normal 0.76-1.46 [facility] Comment on above: Performed By: #### F T4 #### [facility] [address] [place] [address] Dr. Edil Gayle GLYCOHEMOGLOBIN A1Con 2021 ADA RECOMMENDATION SEE BELOW Normal [facility] Comment on above: Result Comment: ADA RECOMMENDED LIMIT 4.0 - 6.0 ADA THERAPEUTIC TARGET < 7.0 ACTION SUGGESTED > 7.0 Performed By: #### A 1C #### [facility] [address] [place] [address] Dr. Edil Gayle Glucose [Mass/Vol] 108 mg/dL Normal [facility] Comment on above: Performed By: #### A 1C #### [facility] [address] [address] [address] Edil Gayle HbA1c (Bld) [Mass fraction] 5.4 % Normal 4.5-6.2 [facility] Comment on above: Performed By: #### A 1C #### [facility] [address] [place] [address] Dr. Edil Gayle LIPID PROFILEon 11-01-2021 CHOL-HDL RATIO NORM SEE BELOW Normal [facility] Comment on above: Result Comment: 3.3 - 4.4 LOW RISK 4.4 - 7.1 AVERAGE RISK 7.1 - 11.0 MODERATE RISK >11.0 HIGH RISK Performed By: #### T SH, CMP, LIPID #### [facility] [address] [address] [address] Edil Gayle Cholesterol [Mass/Vol] 246 mg/dL Critically high <=200 [facility] Comment on above: Performed By: #### T SH, CMP, LIPID #### [facility] [address] [place] [address] Dr. Edil Gayle Cholesterol in HDL [Mass/Vol] 48 mg/dL Normal 40-60 [facility] Comment on above: Performed By: #### T SH, CMP, LIPID #### [facility] [address] [place] [address] Dr. Edil Gayle Cholesterol in LDL [Mass/Vol] 172.6 mg/dL Normal [facility] Comment on above: Performed By: #### T SH, CMP, LIPID #### [facility] [address] [place] [address] Dr. Edil Gayle Cholesterol.total/C holesterol in HDL [Mass ratio] 5.1 {ratio} Normal [facility] Comment on above: Performed By: #### T SH, CMP, LIPID #### [facility] [address] [place] [address] Dr. Edil Gayle HDL NORMAL > or = 60 mg/dl - LO W CARDIOVASCULAR RISK <40 mg/dl - HIGH CARDIOVASCULAR RISK Normal [facility] Comment on above: Performed By: #### T SH, CMP, LIPID #### [facility] [address] [place] [address] Dr. Edil Gayle LDL CALC NORMAL SEE BELOW Normal [facility] Comment on above: Result Comment: <100 mg/dl OPTIMAL 100 - 129 mg/dl NEAR OR ABOVE OPTIMAL 130 - 159 mg/dl BORDERLINE HIGH 160 - 189 mg/dl HIGH >190 mg/dl VERY HIGH Performed By: #### T SH, CMP, LIPID #### [facility] [address] [address] [address] Edil Gayle Triglyceride [Mass/Vol] 127 mg/dL Normal <=150 [facility] Comment on above: Performed By: #### T SH, CMP, LIPID #### [facility] [address] [address] [address] Edil Gayle VLDL CALC 25.4 mg/dL Normal [facility] Comment on above: Performed By: #### T SH, CMP, LIPID #### [facility] [address] [address] [address] Edil Gayle PROF 14(COMP METB)on 022 Albumin [Mass/Vol] 3.6 g/dL Normal 3.4-5.0 [facility] Comment on above: Performed By: #### T SH, CMP, LIPID #### [facility] [address] [address] [address] Edil Gayle Albumin/Globulin [Mass ratio] 1.0 {ratio} Normal [facility] Comment on above: Performed By: #### T SH, CMP, LIPID #### [facility] [address] [address] [address] Edil Gayle ALP [Catalytic activity/Vol] 109 U/L Normal 46-116 [facility] Comment on above: Performed By: #### T SH, CMP, LIPID #### [facility] [address] [address] [address] Edil Gayle ALT [Catalytic activity/Vol] 21 U/L Normal 14-59 [facility] Comment on above: Performed By: #### T SH, CMP, LIPID #### [facility] [address] [address] [address] Edil Gayle Anion gap [Moles/Vol] 10.9 mmol/L Normal [facility] Comment on above: Performed By: #### T SH, CMP, LIPID #### [facility] [address] [address] [address] Edil Gayle AST [Catalytic activity/Vol] 15 U/L Normal 15-37 [facility] Comment on above: Performed By: #### T SH, CMP, LIPID #### [facility] [address] [address] [address] Edil Gayle Bilirubin [Mass/Vol] 0.8 mg/dL Normal 0.2-1.0 [facility] Comment on above: Performed By: #### T SH, CMP, LIPID #### [facility] [address] [place] [address] Dr. Edil Gayle Calcium [Mass/Vol] 9.3 mg/dL Normal 8.5-10.1 [facility] Comment on above: Performed By: #### T SH, CMP, LIPID #### [facility] [address] [place] [address] Dr. Edil Gayle Chloride [Moles/Vol] 104 mmol/L Normal 98-107 [facility] Comment on above: Performed By: #### T SH, CMP, LIPID #### [facility] [address] [place] [address] Dr. Edil Gayle CO2 [Moles/Vol] 30.6 mmol/L Normal 21.0-32.0 [facility] Comment on above: Performed By: #### T SH, CMP, LIPID #### [facility] [address] [place] [address] Dr. Edil Gayle Creatinine [Mass/Vol] 0.77 mg/dL Normal 0.55-1.02 [facility] Comment on above: Performed By: #### T SH, CMP, LIPID #### [facility] Laboratory [address] [place] [address] Dr. Edil Gayle EGFR-AF CITIZ[place] >60 Normal >=60 [facility] Comment on above: Performed By: #### T SH, CMP, LIPID #### [facility] Laboratory [address] [place] [address] Dr. Edil Gayle EGFR-NON AF CITIZEN OF [place] >60 Normal >=60 [facility] Comment on above: Performed By: #### T SH, CMP, LIPID #### [facility] [address] [place] [address] Dr. Edil Gayle Globulin (S) [Mass/Vol] 3.7 g/dL Normal [facility] Comment on above: Performed By: #### T SH, CMP, LIPID #### [facility] [address] [place] [address] Dr. Edil Gayle Glucose [Mass/Vol] 106 mg/dL Normal 74-106 [facility] Comment on above: Performed By: #### T SH, CMP, LIPID #### [facility] [address] [place] [address] Dr. Edil Gayle Potassium [Moles/Vol] 4.5 mmol/L Normal 3.5-5.1 [facility] Comment on above: Performed By: #### T SH, CMP, LIPID #### [facility] [address] [place] [address] Dr. Edil Gayle Protein [Mass/Vol] 7.3 g/dL Normal 6.4-8.2 [facility] Comment on above: Performed By: #### T SH, CMP, LIPID #### [facility] [address] [place] [address] Dr. Edil Gayle Sodium [Moles/Vol] 141 mmol/L Normal 136-145 [facility] Comment on above: Performed By: #### T SH, CMP, LIPID #### [facility] [address] [place] [address] Dr. Edil Gayle Urea nitrogen [Mass/Vol] 11.0 mg/dL Normal 7.0-18.0 [facility] Comment on above: Performed By: #### T SH, CMP, LIPID #### [facility] [address] [place] [address] Dr. Edil Gayle Urea nitrogen/Creatinine [Mass ratio] 14.3 mg/mg Normal [facility] Comment on above: Performed By: #### T SH, CMP, LIPID #### [facility] [address] [place] [address] Dr. Edil Gayle TSHon 11-01-2021 TSH 2.620 uIU/mL Normal 0.358-3.740 [facility] Comment on above: Performed By: #### T SH, CMP, LIPID #### [facility] [address] [place] [address] Dr. Edil Gayle CBC AUTO DIFFon 07-28-2021 BASO # 0.1 103/ul Normal 0.0-0.1 [facility] Comment on above: Performed By: #### C BC #### [facility] [address] [place] [address] Dr. Edil Gayle Basophils/100 WBC (Bld) 1.0 % Normal 0.2-2.0 [facility] Comment on above: Performed By: #### C BC #### [facility] [address] [place] [address] Dr. Edil Gayle EO # 0.3 103/ul Normal 0.0-0.7 [facility] Comment on above: Performed By: #### C BC #### [facility] [address] [place] [address] Dr. Edil Gayle Eosinophils/100 WBC (Bld) 2.9 % Normal 0.9-7.0 [facility] Comment on above: Performed By: #### C BC #### [facility] [address] [place] [address] Dr. Edil Gayle Erythrocyte distribution width (RBC) [Ratio] 13.0 % Normal 11.0-15.0 [facility] Comment on above: Performed By: #### C BC #### [facility] [address] [place] [address] Dr. Edil Gayle Hematocrit (Bld) [Volume fraction] 46.3 % Normal 36.0-48.0 [facility] Comment on above: Performed By: #### C BC #### [facility] [address] [place] [address] Dr. Edil Gayle Hemoglobin (Bld) [Mass/Vol] 15.4 g/dL Normal 12.0-16.0 [facility] Comment on above: Performed By: #### C BC #### [facility] [address] [place] [address] Dr. Edil Gayle IG # 0.03 10e3/ul Normal 0.00-0.03 [facility] Comment on above: Performed By: #### C BC #### [facility] [address] [place] [address] Dr. Edil Gayle IG % 0.3 % Normal 0.0-0.5 [facility] Comment on above: Performed By: #### C BC #### [facility] [address] [place] [address] Dr. Edil Gayle LYMPH # 2.4 103/ul Normal 1.2-3.8 [facility] Comment on above: Performed By: #### C BC #### [facility] [address] [place] [address] Dr. Edil Gayle Lymphocytes/100 WBC (Bld) 22.4 % Normal 20.5-60.0 [facility] Comment on above: Performed By: #### C BC #### [facility] [address] [place] [address] Dr. Edil Gayle MANUAL DIFF REQ NO Normal [facility] Comment on above: Performed By: #### C BC #### [facility] [address] [place] [address] Dr. Edil Gayle MCH (RBC) [Entitic mass] 30.9 pg Normal 26.7-34.0 [facility] Comment on above: Performed By: #### C BC #### [facility] [address] [place] [address] Dr. Edil Gayle MCHC (RBC) [Mass/Vol] 33.3 g/dL Normal 29.9-35.2 [facility] Comment on above: Performed By: #### C BC #### [facility] [address] [place] [address] Dr. Edil Gayle MCV (RBC) [Entitic vol] 93.0 fL Normal 81.0-99.0 [facility] Comment on above: Performed By: #### C BC #### [facility] [address] [address] [address] Edil Gayle MONO # 0.7 103/ul Normal 0.3-0.8 [facility] Comment on above: Performed By: #### C BC #### [facility] [address] [place] [address] Dr. Edil Gayle Monocytes/100 WBC (Bld) 6.9 % Normal 1.7-12.0 [facility] Comment on above: Performed By: #### C BC #### [facility] [address] [place] [address] Dr. Edil Gayle NEUT # 7.1 103/ul Critically high 1.4-6.5 [facility] Comment on above: Performed By: #### C BC #### [facility] [address] [place] [address] Dr. Edil Gayle Neutrophils/100 WBC (Bld) 66.5 % Normal 43.0-75.0 [facility] Comment on above: Performed By: #### C BC #### [facility] [address] [place] [address] Dr. Edil Gayle Platelet mean volume (Bld) [Entitic vol] 9.4 fL Critically low 9.5-13.5 The [facility] Comment on above: Performed By: #### C BC #### [facility] [address] [place] [address] Dr. Edil Galye PLT 247 103/ul Normal 150-450 [facility] Comment on above: Performed By: #### C BC #### [facility] [address] [place] [address] Dr. Edil Gayle RBC 4.98 106/ul Normal 4.20-5.40 The [facility] Comment on above: Performed By: #### C BC #### [facility] [address] [place] [address] Dr. Edil Gayel WBC 10.7 103/ul Normal 4.0-11.0 [facility] Comment on above: Performed By: #### C BC #### [facility] [address] [place] [address] ABD/PELV W CONon [...] Spleen: Unremarkable. Adrenal Glands: Unremarkable. Kidneys: Unremarkable. Gastrointestinal/Perito neum: No acute abnormality. The appendix is unremarkable. No free air or free fluid. Vascular: Unremarkable. Lymph Nodes: No enlarged lymph nodes by CT size criteria. Pelvic Organs: Prior hysterectomy. Bladder: Unremarkable. Bones: No acute osseous abnormality. Soft tissues: Unremarkable. IMPRESSION: 1. No acute abnormality of the abdomen and pelvis. Electronically authenticated by: MICHELLE HENRY Date: 2021-07-28 11:03 Normal [facility] ER URINE PROFILEon 2 Bilirubin Ql (U) Negative Normal NEGATIVE [facility] Comment on above: Performed By: #### E RUR #### [facility] [address] [place] [address] Dr. Edil Gayle Clarity (U) CLEAR Normal CLEAR [facility] Comment on above: Performed By: #### E RUR #### [facility] [address] [place] [address] Dr. Edil Gayle Color (U) YELLOW Normal YELLOW [facility] Comment on above: Performed By: #### E RUR #### [facility] [address] [place] [address] Dr. Edil Gayle ERUAHD A micrscopic examination will be performed if indicated. Normal [facility] Comment on above: Performed By: #### E RUR #### [facility] [address] [place] [address] Dr. Edil Gayle Glucose Ql (U) Negative Normal NEGATIVE [facility] Comment on above: Performed By: #### E RUR #### [facility] [address] [place] [address] Dr. Edil Gayle Hemoglobin Ql (U) Negative Normal NEGATIVE [facility] Comment on above: Performed By: #### E RUR #### [facility] [address] [place] [address] Dr. Edil Gayle Ketones Ql (U) Negative Normal NEGATIVE [facility] Comment on above: Performed By: #### E RUR #### [facility] [address] [place] [address] Dr. Edil Gayle LEUKOCYTES Negative Normal NEGATIVE [facility] Comment on above: Performed By: #### E RUR #### [facility] [address] [place] [address] Dr. Edil Gayle Nitrite Ql (U) Negative Normal NEGATIVE [facility] Comment on above: Performed By: #### E RUR #### [facility] [address] [place] [address] Dr. Edil Gayle pH (U) 6.0 [pH] Normal 5-9 [facility] Comment on above: Performed By: #### E RUR #### [facility] [address] [place] [address] Dr. Edil Gayle SPEC GRAVITY 1.030 Abnormal 1.005-<=1.02 5 [facility] Comment on above: Performed By: #### E RUR #### [facility] [address] [place] [address] Dr. Edil Gayle UA PROTEIN Negative Normal NEGATIVE/ TRACE [facility] Comment on above: Performed By: #### E RUR #### [facility] [address] [place] [address] Dr. Edil Gayle UR MICRO IND NOT INDICATED Normal [facility] Comment on above: Performed By: #### E RUR #### [facility] [address] [place] [address] Dr. Edil Gayle Urobilinogen Qn (U) 0.2 {Tee'U}/dL Normal 0.2 - 1. 0 [facility] Comment on above: Performed By: #### E RUR #### [facility] [address] [address] [address] Edil Gayle PROF CHEM 8 (BAS METB)on Anion gap [Moles/Vol] 9.8 mmol/L Normal [facility] Comment on above: Performed By: #### F T4 #### [facility] [address] [place] [address] Dr. Edil Gayle Calcium [Mass/Vol] 8.4 mg/dL Critically low 8.5-10.1 [facility] Comment on above: Performed By: #### F T4 #### [facility] [address] [place] [address] Dr. Edil Gayle Chloride [Moles/Vol] 106 mmol/L Normal 98-107 [facility] Comment on above: Performed By: #### F T4 #### [facility] [address] [place] [address] Dr. Edil Gayle CO2 [Moles/Vol] 29.1 mmol/L Normal 21.0-32.0 [facility] Comment on above: Performed By: #### F T4 #### [facility] [address] [place] [address] Dr. Edil Gayle Creatinine [Mass/Vol] 0.78 mg/dL Normal 0.55-1.02 [facility] Comment on above: Performed By: #### F T4 #### [facility] [address] [place] [address] Dr. Edil Gayle EGFR-AF [place]IZ[place] >60 Normal >=60 [facility] Comment on above: Performed By: #### F T4 #### [facility] [address] [place] [address] Dr. Edil Gayle EGFR-NON AF CITIZ[place] >60 Normal >=60 [facility] Comment on above: Performed By: #### F T4 #### [facility] [address] [place] [address] Dr. Edil Gayle Glucose [Mass/Vol] 89 mg/dL Normal 74-106 [facility] Comment on above: Performed By: #### F T4 #### [facility] [address] [place] [address] Dr. Edil Gayle Potassium [Moles/Vol] 3.9 mmol/L Normal 3.5-5.1 [facility] Comment on above: Performed By: #### F T4 #### [facility] [address] [address] [address] Edil Gayle Sodium [Moles/Vol] 141 mmol/L Normal 136-145 [facility] Comment on above: Performed By: #### F T4 #### [facility] [address] [address] [address] Edil Gayle Urea nitrogen [Mass/Vol] 12.0 mg/dL Normal 7.0-18.0 [facility] Comment on above: Performed By: #### F T4 #### [facility] [address] [place] [address] Dr. Edil Gayle Urea nitrogen/Creatinine [Mass ratio] 15.4 mg/mg Normal [facility] Comment on above: Performed By: #### F T4 #### [facility] [address] [place] [address] Dr. Edil Gayle ANAon 11-22-2020 RAFIA PATTERN SPECKLED Normal [facility] Comment on above: Result Comment: The JOSE [...] authority. Performed By: #### 1 0196 #### [facility] [address] [place] [address], [place] RAFIA SCREEN 1:80 Abnormal <1:40,1:40 [facility] Comment on above: Result Comment: Test performed using JOSE C IFA RAFIA Hep-2 Test, a pre-standardized assay designed for the qualitative and semi-quantitative detection of antinuclear antibodies. Performed By: #### 1 0196 #### [facility] [address] [place] [address], [place] C REACTIVE PROTEINon 021 CRP [Mass/Vol] 1.9 mg/L Normal 0.0-7.0 [facility] Comment on above: Performed By: #### 9 9744, 53982, 13943 #### [facility] [address] [facility] [place] [address], [place] CBC W/DIFFon 11-22-2020 ABS IMM GRANS 0.0 10*3/uL Normal 0.0-0.2 [facility] Comment on above: Performed By: #### 5 010, 91871 #### [facility] [address] [place] [address], [place] ABS NEUTROPHILS 10.1 10*3/uL High 1.6-7.[address] [facility] Comment on above: Performed By: #### 5 102, 81605 #### [facility] [address] [facility] [place] [address], [place] Basophils (Bld) [#/Vol] 0.1 10*3/uL Normal 0.0-0.2 [facility] Comment on above: Performed By: #### 5 102, 12268 #### [facility] [address] [facility] [place] [place] [address], [place] Basophils/100 WBC (Bld) 0.8 % Normal 0.0-1.0 [facility] Comment on above: Performed By: #### 5 102, 92675 #### [facility] [address] [facility] [place] [address], [place] Eosinophils (Bld) [#/Vol] 0.2 10*3/uL Normal 0.0-0.5 [facility] Comment on above: Performed By: #### 5 102, 78034 #### [facility] [address] [place] [address], [place] Eosinophils/100 WBC (Bld) 1.2 % Normal 0.0-6.0 [facility] Comment on above: Performed By: #### 5 102, 34895 #### [facility] [address] [facility] [address] Erythrocyte distribution width (RBC) [Ratio] 13.2 % Normal 11.5-15.0 [facility] Comment on above: Performed By: #### 5 102, 44538 #### [facility] [address] [facility] [address] Hematocrit (Bld) [Volume fraction] 47.8 % High 36.0-45.0 [facility] Comment on above: Performed By: #### 5 102, 92949 #### [facility] [address] [facility] [address] Hemoglobin (Bld) [Mass/Vol] 16.1 g/dL High 12.0-15.0 [facility] Comment on above: Performed By: #### 5 102, 23044 #### [facility] [address] [facility]. [address] IMMATURE GRANS 0.3 % Normal 0.0-1.0 [facility] Comment on above: Performed By: #### 5 102, 26333 #### [facility] [address] [facility] [address] Lymphocytes (Bld) [#/Vol] 2.3 10*3/uL Normal 1.2-4.0 [facility] Comment on above: Performed By: #### 5 102, 41331 #### [facility] [address] [facility] [address], [place] Lymphocytes/100 WBC (Bld) 17.1 % Low 20.0-45.0 [facility] Comment on above: Performed By: #### 5 102, 29622 #### [facility] [address] [facility] [place] [address], [place] MCH (RBC) [Entitic mass] 30.8 pg Normal 27.0-33.0 [facility] Comment on above: Performed By: #### 5 102, 26049 #### [facility] [address] [facility]. [address] MCHC (RBC) [Mass/Vol] 33.7 g/dL Normal 32.0-35.0 [facility] Comment on above: Performed By: #### 5 102, 49214 #### [facility] [address] MCV (RBC) [Entitic vol] 91.4 fL Normal 82.0-98.0 [facility] Comment on above: Performed By: #### 5 102, 65665 #### [facility] [address] Monocytes (Bld) [#/Vol] 0.7 10*3/uL Normal 0.1-1.0 [facility] Comment on above: Performed By: #### 5 102, 57703 #### [facility] [address] MONOS 5.0 % Normal 5.0-12.0 [facility] Comment on above: Performed By: #### 5 102, 37684 #### [facility] [address] [facility]. [address] Neutrophils/100 WBC (Bld) 75.6 % High 40.0-72.0 [facility] Comment on above: Performed By: #### 5 102, 71784 #### [facility] [address] Nucleated RBC/100 WBC (Bld) [Ratio] 0 % Normal 0-0 [facility] Comment on above: Performed By: #### 5 102, 65454 #### [facility] [address] [facility]. [address] PLAT CNT 303 10*3/uL Normal 150-400 [facility] Comment on above: Performed By: #### 5 0103, 33181 #### [facility] [address] RBC (Bld) [#/Vol] 5.23 10*6/uL High 3.80-5.00 [facility] Comment on above: Performed By: #### 5 0103, 61023 #### [facility] [address] WBC (Bld) [#/Vol] 13.31 10*3/uL High 4.00-10.60 [facility] Comment on above: Performed By: #### 5 0103, 96685 #### [facility] [address] CYCLIC [place] PEPTIDE [place] [id number] 11-22-2020 CYCLIC CIT PEP 4 Units Normal 0-19 [facility] Comment on above: Result Comment: INTE RPRETIVE [...] be monitored and testing repeated. Performed By: [employer] [address] [place] [address] Maintenance Helper Utility Engineer: Olga Duval MD HAND LEFT 3 Son 11-22-2020 HAND LEFT 3 S [facility] Department of Radiology [address] [place] [address] ===== Patient Name: ARACELI FRANCOIS : 1980 Sex: F Age: Race: White Pt. Location: [facility] Patient Status: D Ordered Date: 11/22/2020 10:50:00 AM Completed Date: 11/22/2020 10:54 AM Requesting Provider: DANYA ROTHMAN Attending Provider: DANYA ROTHMAN Report Copy To: Signs & Symptoms: M25.50 Pain in unspecified joint I10 History: [place] Comments: Evaluate Exam: HAND LEFT 3 S ===== HAND LEFT 3 S 11/22/2020 10:54 AM CLINICAL INDICATIONS: M25.50 Pain [...] osteoarthritis. Electronically signed: Neftali Gates. Transcribed by: [email or web address], User Resident: Electronically Signed by: NEFTALI GATES @ 11/23/2020 09:30 AM Normal [facility] Comment on above: Order Comment: Evalu ate HAND RIGHT 3 VWSon HAND RIGHT 3 S [facility] Department of Radiology [address] [place] [address] ===== Patient Name: ARACELI FRANCOIS : 1980 Sex: F Age: Race: White Pt. Location: [facility] Patient Status: D Ordered Date: 11/22/2020 10:50:00 AM Completed Date: 11/22/2020 10:54 AM Requesting Provider: DANYA ROTHMAN Attending Provider: DANYA ROTHMAN Report Copy To: Signs & Symptoms: M25.50 Pain in unspecified joint I10 History: [place] Comments: Evaluate Exam: HAND RIGHT 3 S ===== HAND RIGHT 3 S 11/22/2020 10:54 AM CLINICAL INDICATIONS: M25.50 Pain [...] of osteoarthritis. Approved by:Josiane Fletcher11/23/2020 9:43 AM. INeftali,have reviewed the image(s) and agree with the findings in this report. Electronically signed: Neftali Gates. Transcribed by: [email or web address], User Resident: JOSIANE LAWRENCE Electronically Signed by: NEFTALI GATES @ 11/23/2020 12:29 PM I personally read this/these film(s) with this resident Normal [facility] Comment on above: Order Comment: Evalu ate IMMUNOGLOB BLon 11-22-2020 IgA [Mass/Vol] 410 mg/dL Normal 60-413 [facility] Comment on above: Performed By: #### 9 9744, 75836, 21538 #### [facility] [address] [place] [address], [place] IgG [Mass/Vol] 908 mg/dL Normal 591-1540 [facility] Comment on above: Performed By: #### 9 9744, 48481, 57829 #### [facility] [address] [place] [address], [place] IgM [Mass/Vol] 58 mg/dL Normal 54-285 [facility] Comment on above: Performed By: #### 9 9744, 20199, 88597 #### [facility] [address] [place] [address], [place] RHEUMATOID FACTOR SERUMon RA <20 Normal 0-20 [facility] Comment on above: Performed By: #### 9 9744, 89011, 83613 #### [facility] [address] [place] [id number], [place] SEDIMENTATION RATEon 021 SED RATE 4 mm/hr Normal 0-20 [facility] Comment on above: Performed By: #### 5 0103, 57188 #### [facility] [address] [place] [address], [place] t cell subset analysison CD3 % 86.24 % Normal 65.00-90.00 The [facility] Comment on above: Order Comment: This test was developed and its performance characteristics determined by the [facility]. It has not been cleared or approved by the U.S. Food and Drug Administration. Performed By: #### 9 0116 #### [facility] [address] CD3 ABSOLUTE 1963 cells/mm3 Normal 760-2130 The [facility] Comment on above: Order Comment: This test was developed and its performance characteristics determined by the [facility]. It has not been cleared or approved by the [place].S. Food and Drug Administration. Performed By: #### 9 0116 #### [facility] [address] CD4 % 67.10 % Normal 40.00-70.00 [facility] Comment on above: Order Comment: This test was developed and its performance characteristics determined by the [facility]. It has not been cleared or approved by the [place].S. Food and Drug Administration. Performed By: #### 9 0116 #### [facility] [address] CD4 ABSOLUTE 1527 cells/mm3 High 430-1185 [facility] Comment on above: Order Comment: This test was developed and its performance characteristics determined by the [facility]. It has not been cleared or approved by the [place].S. Food and Drug Administration. Performed By: #### 9 0116 #### [facility] [address] CD4:CD8 RATIO 3.79 Normal 1.00-4.00 [facility] Comment on above: Order Comment: This test was developed and its performance characteristics determined by the [facility]. It has not been cleared or approved by the U.S. Food and Drug Administration. Performed By: #### [id number] #### [facility] [address] CD8 % 17.70 % Normal 15.00-40.00 [facility] Comment on above: Order Comment: This test was developed and its performance characteristics determined by the [facility]. It has not been cleared or approved by the U.S. Food and Drug Administration. Performed By: #### [id number] #### [facility] [address] [facility] [place] [address], [place] CD8 ABSOLUTE 403 cells/mm3 Normal 180-865 [facility] Comment on above: Order Comment: This test was developed and its performance characteristics determined by the [facility]. It has not been cleared or approved by the U.S. Food and Drug Administration. Performed By: #### [id number] #### [facility] [address] [facility]. [address] Vital Signs Date Time Vital Sign Value Performing Clinician Facility 04-25-2023 12:38-0400 Body height 162.6 cm Db Rivera MD Work Phone: [facility] 04-25-2023 12:38-0400 Body mass index (BMI) [Ratio] 42.05 kg/m2 Db Rivera MD Work Phone: [facility] 04-25-2023 12:38-0400 Body weight 111.13 kg Db Rivera MD Work Phone: [facility] 04-25-2023 12:38-0400 Diastolic blood pressure 99 mm[Hg] Db Rivera MD Work Phone: [facility] 04-25-2023 12:38-0400 Heart rate 93 /min Db Rivera MD Work Phone: [facility] 04-25-2023 12:38-0400 Systolic blood pressure 146 mm[Hg] Db Rivera MD Work Phone: [facility] 03-16-2023 10:58-0500 Body height 162.6 cm Pmh 1 [facility] 03-16-2023 10:58-0500 Body mass index (BMI) [Ratio] 42.05 kg/m2 Pmh 1 [facility] 03-16-2023 10:58-0500 Body weight 111.13 kg [facility] 1 [employer] [facility] 03-01-2023 14:45-0500 Body height 162.56 cm Kisha Barkley Other [facility] 03-01-2023 14:45-0500 Body mass index (BMI) [Ratio] 42.05 kg/m2 Kisha Barkley Other [facility] 03-01-2023 14:45-0500 Body temperature 97.5 [degF] Kisha Barkley Other [facility] 03-01-2023 14:45-0500 Body weight 111.13 kg Kisha Barkley Other [facility] 03-01-2023 14:45-0500 Respiratory rate 18 /min Kisha Barkley Other [facility] 03-01-2023 14:45-0500 SaO2% (BldA) [Mass fraction] 99 % Kisha Barkley Other [facility] 10-26-2022 09:00-0400 Body height 162.56 cm Albaro Wilson Other [facility] 10-26-2022 09:00-0400 Body mass index (BMI) [Ratio] 43.25 kg/m2 Albaro Wilson Other [facility] 10-26-2022 09:00-0400 Body weight 114.31 kg Albaro Wilson Other [facility] 10-26-2022 09:00-0400 Diastolic blood pressure 80 mm[Hg] Albaro Wilson Other [facility] Other 10-26-2022 09:00-0400 Systolic blood pressure 122 mm[Hg] Albaro Urbin[facility] Other [facility] Other 09-12-2022 14:20-0400 Diastolic blood pressure 70 mm[Hg] [facility] 09-12-2022 14:20-0400 Heart rate 70 /min [facility] 09-12-2022 14:20-0400 Respiratory rate 16 /min [facility] 09-12-2022 14:20-0400 SaO2% (BldA) [Mass fraction] 97 % [facility] 09-12-2022 14:20-0400 Systolic blood pressure 131 mm[Hg] [facility] 09-12-2022 12:54-0400 Body height 162.[address] [facility] 09-12-2022 12:54-0400 Body temperature 98.2 [degF] [facility] 09-12-2022 12:54-0400 Body weight 113.[address] 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) Start: 03-19-2023 Telephone encounter Db Rivera MD Work Phone: [facility] Start: 03-19-2023 End: 03-19-2023 Evaluation and management of inpatient DB RIVERA [facility] Start: 03-16-2023 End: 03-16-2023 ambulatory Pmh Pat Phone Call Provider 1 [facility] - Pre Admit Start: 03-16-2023 End: 03-16-2023 ambulatory SHAD SHAMMO [facility] Start: 03-12-2023 End: 03-13-2023 ambulatory LIZZ GUTIÉRREZ [facility] Start: 03-01-2023 End: 03-01-2023 ambulatory Kisha Barkley Other [facility] Start: 03-01-2023 Office outpatient visit 25 minutes Kisha Barkley [facility] Start: 02-06-2023 End: 02-07-2023 ambulatory DB HoughMoira RIVERA [facility] Start: 10-26-2022 End: 10-26-2022 ambulatory Albaro Wilson Other [facility] Start: 10-26-2022 Office outpatient visit 15 minutes Albaro Wilson [facility] Start: 09-19-2022 End: 09-19-2022 ambulatory Albaro Wilson Other [facility] Start: 09-19-2022 Telephone encounter [facility] Start: 09-12-2022 End: 09-12-2022 ambulatory Siva You Facility:[facility] Start: 09-12-2022 End: 09-12-2022 Admission to same day surgery center [facility] Work Phone: Start: 09-12-2022 End: 09-12-2022 ambulatory NON STAFF [facility] Work Phone: Start: 06-30-2022 End: 02-14-2023 ambulatory Greyson Lincoln Start: 06-07-2022 ambulatory SHAD SHAMMO Facility:H 1 Start: 04-21-2022 End: 04-22-2022 ambulatory SHAD SHAMMO Facility:[facility] Start: 04-03-2022 End: 04-03-2022 ambulatory SHAD SHAMMO Facility:[facility]1 Start: 01-31-2022 End: 02-01-2022 ambulatory QUIRINO ANDRE Facility:[facility] Start: 01-10-2022 End: 01-11-[address] OMAR GUIDRY . Facility:[facility] Start: 12-20-2021 End: 12-20-2021 ambulatory NON STAFF Facility:[facility] Start: 12-20-2021 End: 12-20-2021 ambulatory NON STAFF [facility] Work Phone: Start: 12-20-2021 End: 12-20-2021 Patient encounter procedure DO Ron Wallace Work Phone: [facility] [address] Start: 12-20-2021 End: 12-21-[address] OMAR GUIDRY . Facility:[facility] Start: 12-10-2021 End: 12-11-2021 ambulatory SHAD SHAMMO Facility:[facility] Start: 12-06-2021 End: 12-07-2021 ambulatory SHAD SHAMMO Facility:[facility] Start: 11-08-2021 End: 11-09-2021 ambulatory SHAD SHAMMO Facility:[facility] Start: 11-03-2021 Encounter for genera l adult medical examination without abnormal findings DR DOCTOR HORNER [facility] Start: 11-01-2021 End: 11-02-[address] DOCTOR HORNER Facility:[facility] Start: 11-01-2021 End: 11-02-2021 Encounter for general adult medical examination without abnormal findings DR DOCTOR HORNER Facility:[facility] Start: 09-23-2021 End: 09-23-[address] CASSY DODSON . Facility:[facility] Start: 07-28-2021 End: 07-28-2021 ambulatory IRAM ROTH Facility:[facility]1 Procedures Date Procedure Procedure Detail Performing Clinician Start: 06-01-2023 Follow-up visit Follow-up LIZZ GUTIÉRREZ Start: 09-12-2022 Esophagogastroduodenoscopy Start: 07-05-2022 Adult depression screening assessment Pmh 1 Plan of Treatment Date Care Activity Detail Author Start: 09-28-2028 DTaP,Tdap and Td Vac cines (2 - Td or Tdap) DTaP,Tdap and Td Vaccines (2 - Td or Tdap) [facility] Start: 03-19-2024 Tobacco Screening Tobacco Screening [facility] Start: 03-16-2024 Adult BMI Screening Adult BMI Screen ing [facility] Start: 01-02-2024 Tobacco Screening Tobacco Screening [facility] Start: 07-06-2023 Depression Screening Depression Scre ening [facility] Start: 06-01-2023 End: 06-01-2023 Patient encounter procedure 06/01/2023 10:30 AM EDT Office Visit Anabel L [facility] [address] [place] [address] Lizz Gutiérrez MD [address] [place] [address] [place] [facility] Start: 04-27-2023 End: 04-27-2023 Patient encounter procedure 04/27/2023 3:15 PM EDT Office Visit Anabel L [facility] [address] [place] [phone] Lizz Gutiérrez MD [address] [place] [address] Anabel [facility]hwinder [facility] Start: 03-19-2023 End: 03-19-2023 Patient encounter procedure 03/19/2023 3:45 PM EST [facility] [address] [place] [address] [facility] [place] [phone] Db Rivera MD [address] [place] [address] [facility] Start: 03-19-2023 End: 03-19-2023 Admission to same day surgery center 03/19/2023 9:30 AM EST - 03/19/2023 10:00 AM EST Surgery [facility] - Surgery [address] [place] [phone] Db Rivera MD [address] [place] [address] CYSTOSCOPY WITH BLADDER IRRIGATION AND [facility] BLADDER SOLUTION [98894 (CPT )] [facility] Comment on above: CYSTOSCOPY WITH BLAD ELI IRRIGATION AND [facility] BLADDER SOLUTION [31645 (CPT )] Start: 03-19-2023 End: 03-19-2023 Cystourethroscopy [facility] Start: 03-19-2023 Subsequent hospital visit by physician 03/19/2023 9:30 AM EST Hospital Encounter [facility] [address] [place] [phone] Db Rivera MD [address] [place] [address] [facility] Start: 10-06-2022 Influenza vaccination Influenza Vacc ine [facility] Start: 09-12-2022 [facility] Start: 12-20-2021 MR Unspecified body region [facility] Start: 12-20-2021 MRI of head MR head/brain wo/w con [facility] Start: 1996 Adult BMI Follow Up Plan Adult BMI Follow Up Plan [facility] Start: 1980 Tobacco Counseling Tobacco Counselin ashutosh [facility] Patient Education Hiatal Hernia (DC) [facility] Work Phone: Immunizations Immunization Date Immunization Notes Care Provider Fa cility 09-28-2018 tetanus toxoid, redu omon diphtheria toxoid, and acellular pertussis vaccine, adsorbed Pmh 1 [facility] Payers Date Payer Category Payer Medicaid [facility] MEDICAID [id number] 2022-Present [address] [place] [address] [id number] 2022 Medicaid [id number] 2021 Self-pay [id number] 1978 Unknown [id number] [id number]3 1978 Unknown [id number] 2.16.840.1.039181.3.579.2.593 1978 Unknown [id number] 2.16.840.1.531550.3.579.2.593 1978 Unknown [id number] 2.16.840.1.990125.3.579.2.593 1978 Unknown [id number] 2.16.840.1.448516.3.579.2.593 1978 Unknown [id number] 2.16.840.1.933583.3.579.2.593 1978 Unknown [id number] 2.16.840.1.096894.3.579.2.593 1978 Unknown [id number] 2.16.840.1.775281.3.579.2.593 1978 Unknown [id number] 2.16.840.1.198124.3.579.2.593 1978 Unknown [id number] 2.16.840.1.942095.3.579.2.593 1978 Unknown [id number] 2.16.840.1.164331.3.579.2.593 1978 Unknown [id number] 2.16.840.1.196184.3.579.2.593 1978 Unknown [id number] 2.16.840.1.456460.3.579.2.593 1978 Unknown [id number] 2.16.840.1.819107.3.579.2.1286 1978 Unknown [id number] 2.16.840.1.952209.3.579.2.1286 1978 Unknown [id number] 2.16.840.1.395963.3.579.2.1286 1978 Unknown [id number] 2.16.840.1.440719.3.579.2.1286 1978 Unknown [id number] 2.16.840.1.614547.3.579.2.128 1978 Unknown [id number] 2.16.840.1.383270.3.579.2.1286 1959 Medicaid [id number] Unknown [id number] 2.16.840.1.510702.3.579.2.531 Unknown [id number] 2.16.840.1.132569.3.579.2.531 Social History Date Type Detail Facility Tobacco smoking stat [facility] Unknown if ever smoked [facility] Work Phone: Start: 1980 Sex Assigned At Female F [facility] Start: 09-12-2022 Tobacco smoking stat [facility] Smoker (finding) [facility] Start: 03-18-2020 End: 07-05-2022 Sex Assigned At [facility] Start: 06-21-2022 End: 03-19-2023 Tobacco smoking status WAIS Smokes tobacco daily [facility] History of tobacco use Cigarette Smoker P [facility] Start: 03-18-2020 End: 06-21-2022 Cigarettes smoked current (pack per day) - Reported 0.5 [facility] Start: 06-21-2022 End: 03-19-2023 Tobacco use and exposure Smokeless tobacco non-user [facility] Start: 03-16-2023 End: 04-25-2023 Alcohol intake Current non-drinker of alcohol (finding) [facility] How often to you hav e a drink containing alcohol? Never [facility] How many standard drinks containing alcohol do you have on a typical day? Patient does not drink [facility] Start: 06-21-2022 Tobacco Comment Has a patch an d down to 4 cig. Per day [facility] Start: 1980 Sex Assigned At Not on file P [facility] Procedure Code Equipment Code Equipment Origin al Text Equipment Identifier Dates Graft Bn 5ml Yomi Puros Strl Lf - [id number] Start: 07-05-2022 Cover Bur Hl 14m m Lp Tab Unv Neuro 2 Thk.5mm Ns Lf - [id number] Start: 07-05-2022 Plate Bn 16mm 2 Hl Lp Unv Neuro Ii Crnmxf Ti Ns Lf 1.5mm Scr - [id number] Start: 07-05-2022 Screw Bn 4mm 1.5 mm Slf Drl Xpn Crnmxf Strl - [id number] Start: 07-05-2022 Goals Date Patient Goal Desired Activity /State Clinical Notes 12-20-2021 to 10-22-2023 Assessment & Plan Note - Db Rivera MD - 04/25/2023 12:48 PM EDTAssessment & Plan Note - Db Rivera MD - 04/25/2023 12:48 PM EDTMichmynor Rivera MD - 04/25/2023 12:45 PM EDT Note Date & Type Note Facility 10-22-2023 Note Today states that sh graciela is out of elavil and does not have appt with PCP until Nov 09- therefore will prescribed short 3 week script to fill [facility] 10-22-2023 Note F/U with PCP as scheduled Andrea [facility] 10-22-2023 Note Lipid abnormalities are stable, continue lipitor 40 mg daily [facility] 10-22-2023 Note Hypertension is stab le and well controlled Continue hydrochlorothiazide, losartan, norvasc [facility] 10-22-2023 Note Currently resolved [facility] 10-22-2023 Note Patient here for 1.5 year follow up hypertension. Still has pain under her right breast, where the bone is . Denies SOB and palpitations. Says she hasn't been lightheaded/dizzy since her aneurysm surgery in June 2022. Review of Systems Musculoskeletal: Positive for arthritis, back pain and joint pain. Neurological: Positive for headaches. All other systems reviewed and are negative. [facility] 10-22-2023 Note Pt is here for a eig ht month follow up. [facility] 10-22-2023 Note [facility] CARDIOLOGY PROGR ESS NOTE HPI: Araclei Francois is a 43 y.o. female here for routine F/U HPI 43 yo female presents today for routine f/U for HTN, HPL, factor V leiden, cerebral aneurysm s/p clipping, fibromyalgia, and atypical chest pain. Still has pain under her right breast, where the bone is but different than usual. Denies SOB and palpitations. Says she hasn't been lightheaded/dizzy since her aneurysm surgery in June 2022. Review of Systems Musculoskeletal: Positive for arthritis, back pain and joint pain. Neurological: Positive for headaches. All other systems reviewed and are negative Previous HPI 05/25/23 HPI: Araceli Francois is a 41 y.o. female here for routine f/U for HTN, atypical chest pain Currently denied chest pain, shortness of breath, orthopnea. Admits occasional lightheadedness/dizziness, but denied syncope. [facility] surgery for aneurysm. Previous HPI per Dr Sommers 02/15/22 Pt yolie known factor V Leiden (apparently 1 gene only, not on anticoagulation), cerebral aneurysm, fibromyalgia, hypertension, and migraine headaches. Patient was initially referred to Cardiology clinic for a single episode of chest pain. At the time, echo and lexiscan stress test were ordered. Visit Vitals BP 133/86 (BP Location: Right wrist, Patient Position: Sitting) Pulse 85 Ht 1.626 m (5' 4 ) Wt 112 kg (246 lb) SpO2 95% BMI 42.23 kg/m??? Smoking Status Every Day BSA 2.25 m??? Allergies Allergen Reactions Penicillins Hives, Shortness of breath and Rash Bee Pollen Other Duloxetine GI intolerance Naproxen Hives Nickel Medications: Current Outpatient Medications on File Prior to Visit Medication Sig Dispense Refill atorvastatin (Lipitor) 20 mg tablet Take 40 mg by mouth at bedtime. omega 9-xbj-ucn-fish oil 300-1,000 mg capsule,delayed release(DR/EC) omeprazole (PriLOSEC) [address] capsule TAKE 1 CAPSULE BY MOUTH 30 MINUTES BEFORE morning meal [DISCONTINUED] amLODIPine (Norvasc) 10 mg tablet Take 10 mg by mouth in the morning. [DISCONTINUED] losartan (Cozaar) 100 mg tablet Take 100 mg by mouth in the morning. [DISCONTINUED] solifenacin (VESIcare) 5 mg tablet Take 5 mg by mouth in the morning. nicotine (Nicoderm CQ) 7 mg/24 hr patch APPLY 1 (ONE) patch to the skin DAILY Nurtec ODT 75 mg tablet,disintegrating TAKE 1 TABLET BY MOUTH at the onset OF a migraine; MUST LAST 30 DAYS ProAir HFA 90 mcg/actuation inhaler INHALE 1 PUFF BY MOUTH NEEDED EVERY 4 HOURS [DISCONTINUED] amitriptyline (Elavil) 25 mg tablet TAKE 1 TABLET BY MOUTH at 8pm [DISCONTINUED] ARIPiprazole (Abilify) 2 mg tablet Take 2 mg by mouth at bedtime. [DISCONTINUED] carvedilol (Coreg) 3.125 mg tablet Take 1 tablet (3.125 mg) by mouth with breakfast and with evening meal. (Patient not taking: Reported on 02/22/2023) 180 tablet 3 [DISCONTINUED] FLUoxetine (PROzac) 20 mg capsule 20 mg once daily in the morning. [DISCONTINUED] hydrOXYzine HCL (Atarax) 50 mg tablet Take 50 mg by mouth 1 (one) time. [DISCONTINUED] pregabalin (Lyrica) 100 mg capsule TAKE 1 CAPSULE BY MOUTH at 8pm [DISCONTINUED] sertraline (Zoloft) 50 mg tablet Take 50 mg by mouth in the morning. No current facility-administered medications on file prior to visit. Physical Exam: Constitutional: Appearance: Normal appearance. Without apparent distress, obese HENT: Head: Normocephalic and atraumatic. Nose: Nose [...] General: No focal deficit present. Mental Status: he is alert and oriented to person, place, and time. Psychiatric: Mood and Affect: Mood normal. Behavior: Behavior normal. Thought Content: Thought content normal. Judgment: Judgment normal. Labs: CBC stable, Renal function normal, liver function normal Component 03/12/23 01/01/23 01/01/23 07/07/22 07/06/22 06/21/22 White Blood Cells 9.1 -- -- 12.2 High 18.8 High 9.4 RBC count 4.80 -- -- 3.75 Low 4.04 4.97 Hemoglobin 14.4 -- Negative 11.6 Low 12.4 15.4 Hematocrit 42.2 -- -- 34.1 Low 36.8 45.1 MCV 88 -- -- 91 91 91 (more content not included)... [facility] 04-25-2023 Evaluation + Plan note Associated Problem(s): Mixed stress and urge urinary incontinence No constipation no dry mouth. Will start her on 5 mg VESIcare. Refer her to Dr. Engle. Certainly made need some urodynamic study as well. Deferred to his evaluation and management. [facility] 04-25-2023 Miscellaneous Notes Associated Problem(s): Mixed stress and urge urinary incontinence No constipation no dry mouth. Will start her on 5 mg VESIcare. Refer her to Dr. Engle. Certainly made need some urodynamic study as well. Deferred to his evaluation and management. documented in this encounter [facility] History of Presen t illness Narrative Images from the original note were not included. [address] [place] [address] [facility] [phone] Patient: Araceli Francois Date of : 1980 Encounter Date: 04/25/2023 History of Present Illness: The patient is a 42 y.o. female, an established patient, and is here for mixed urinary incontinence. Did have a cysto [facility] solution. No significant change. Does have mixed incontinence as well. Still bothersome for the patient.. Urinalysis today: No results for input(s): EXTPOCURCO , EXTPOCURCH , EXTPOCAPP , EXTPOCURBS , EXTPOCURBIL , EXTPOCUKET , EXTPOCUSPG , EXTPOCUHGB , EXTPOCUPRO , EXTPOCUURO , EXTPOCULEU , EXTPOCUNIT , EXTPOCUWBC , EXTPOCUBLD , EXTPOCURBC , EXTPOCUCRY , EXTPOCUBAC , EXTPOCUTREP , EXTPOCUPH in the last 72 hours. Last BUN and creatinine: Lab Results Component Value Date BUN 9 03/12/2023 Lab Results Component Value Date CREATININE 0.73 03/12/2023 Last PSA: No results found for: PSA No results found for: PROSTATICSP Past Medical, Family, and Social History Update: The following portions of the patient's history were reviewed and updated as appropriate: allergies, current medications, past family history, past medical history, past social history, past surgical history and problem list. Past Medical History: Diagnosis Date Abdominal pain Acid reflux Arthritis Asthma Bleeding disorder ([facility]) Factor V(clotting disorder) per patient Cerebral aneurysm Clotting disorder ([facility]) Dental disease Upper dentures, lower partial Depression Dysphagia Endometriosis Factor 5 Leiden mutation, heterozygous ([facility]) Fibromyalgia, primary GERD (gastroesophageal reflux disease) Without esophagitis Hyperlipidemia Hypertension Injury of back Irregular menstruation Leaking of urine Memory loss Menopause Migraine headache Obesity Painful menstruation Pelvic pain Pneumonia Rheumatoid arthritis ([facility]) Seizures ([facility]) 1998 During Septoplasty surgery per chart from [facility]. Sinusitis, chronic Wears partial dentures Past Surgical History: Procedure Laterality Date ADENOIDECTOMY BLADDER SUSPENSION CRANIOTOMY REPAIR ANEURYSM(MCA ANEURYSM CLIPPING) Right 07/05/2022 Performed by Eric Jimenez MD at [facility] CYSTOSCOPY WITH BLADDER IRRIGATION AND [facility] BLADDER SOLUTION N/A 03/19/2023 Performed by Db Rivera MD at [facility] Diagnostic cerebral angiogram N/A 07/06/2022 Performed by Yi Bautista MD at [facility] Diagnostic cerebral angiogram N/A 01/02/2022 Performed by Yi Bautista MD at [facility] EGD with bx N/A 07/26/2016 Performed by Db Acevedo MD at [facility] ENDOSCOPY ESSURE TUBAL LIGATION FOOT SURGERY Right HYSTERECTOMY 2010 LAPAROSCOPIC CHOLECYSTECTOMY N/A 04/09/2019 Performed by Geovany Bain MD at [facility] NASAL SEPTOPLASTY W/ TURBINOPLASTY OOPHORECTOMY TONSILLECTOMY TOOTH EXTRACTION Family History Problem Relation Age of Onset Hypothyroidism Mother Other Mother Swallowing problems/Heartburn Thyroid Issues Mother Swallowing difficulties Mother Anesthesia problems Father prolonged emergence Hypertension Father Diabetes Father Heart attack Father Blood Clots Father Heart disease Father Arthritis Father High Cholesterol Father Bleeding Disorder Father Alcohol abuse Brother Asthma Son Other Son Eosinophilic esophagitis (EoE) Hypertension Paternal Grandfather Stroke Paternal Grandfather Breast cancer Neg Hx Current Outpatient Medications Medication Sig Dispense Refill acetaminophen (TYLENOL EXTRA STRENGTH) 500 mg tablet Take 1 tablet (500 mg total) by mouth every 6 (six) hours as needed for pain. 30 tablet 0 amitriptyline (ELAVIL) 50 mg tablet One capsule at 8 PM each night (Patient taking differently: Take 1 tablet (50 mg total) by mouth nightly. One capsule at 8 PM each night) 90 tablet 1 amLODIPine (NORVASC) 5 mg tablet Take 2 tablets (10 mg total) by mouth nightly Indications: high blood pressure. atorvastatin (LIPITOR) 20 mg tablet Take 1 tablet (20 mg total) by mouth in the morning. FLUoxetine (PROzac) 20 mg capsule Take 1 capsule (20 mg total) by mouth in the morning. 90 capsule 1 fluticasone propion-salmeteroL (ADVAIR) 100-50 mcg/dose DISKUS Inhale 1 puff in the morning and 1 puff before bedtime. losartan (COZAAR) 50 mg tablet Take 2 tablets (100 mg total) by mouth nightly. naloxone (NARCAN) 4 mg/actuation spray,non-aerosol nasal spray Administer 1 spray (4 mg total) into alternating nostrils as needed for opioid reversal. 1 each 0 omega 6-sen-cxr-fish oil (FISH OIL) 300-1,000 mg capsule,delayed release(DR/EC) Take 1 capsule by mouth in the morning. omeprazole (PriLOSEC) 40 mg capsule Take 1 capsule (40 mg total) by mouth every morning before breakfast. tiZANidine (ZANAFLEX) 2 mg tablet One tab at 8:00 p.m.each night 90 tablet 1 solifenacin (VESICARE) 5 mg tablet Take 1 tablet (5 mg total) by mouth in the morning. 30 tablet 4 No current facility-administered medications for this visit. (All medications reviewed and updated by provider since last office visit or hospitalization) Allergies: Naproxen, Penicillins, Cymbalta [duloxetine], and Nickel Tobacco History: Social History Tobacco Use Smoking Status Every Day Packs/day: 0.25 Years: 30.00 Additional pack years: 0.00 Total pack years: 7.50 Types: Cigarettes Smokeless Tobacco Never Tobacco Comments Has a patch and down to 4 cig. Per day (If patient a smoker, smoking cessation counseling offered) Social History: Social History Substance and Sexual Activity Alcohol Use No Alcohol/week: 0.0 standard drinks of alcohol Review of Systems: General: Negative for chills and fever. Cardiovascular: Negative for chest pain and shortness of breath. Gastrointestinal: Negative for constipation, diarrhea, nausea, and vomitting. Physical Exam: BP (!) 146/99 Pulse 93 Ht 162.6 cm (5' 4 ) Wt 111.1 kg (245 lb) BMI 42.05 kg/m Nontoxic no apparent distress. Respirations nonlabored. Skin is dry. Awake alert oriented x3. Assessment and Plan: Diagnoses and all orders for this visit: Mixed stress and urge urinary incontinence Other orders - solifenacin (VESICARE) 5 mg tablet; Take 1 tablet (5 mg total) by mouth in the morning. Problem List High Mixed stress and urge urinary incontinence - Primary Overview Factor 5 Leiden mutation-trait-- Dr Jimenez did MCA aneurysm clipping ==== 04/25/2023 ==== CT scan performed recently rules out any renal mass. She does not really recall much before her brain surgery does have mixed urinary incontinence no help with cysto [facility]. Had somewhat narrow urethra but her urethra did accommodate cystoscope. Coughing straining I could not uncover any significant urethral hypermobility. She may have a component of intrinsic sphincter deficiency. Certainly may need urodynamics I felt like her bladder capacity was somewhat small. Will empirically treated with an anticholinergic see how she does. I will refer her to [address] Engle. She may potentially be a candidate for bulking agent. ==== 10/16/2022 ==== [place] yet had hysterectomy 2010. Since that time she is had urinary incontinence. Described as continuous. Had did have what sounds like bladder lift type surgery by Dr. Ibarra. Has had what sounds like pelvic floor physical therapy as well E stim. Still leaks. Leak stay and night. About 3 pads per day. Plan: Renal bladder ultrasound. Cystoscopy urodynamics [facility] bladder solution. Current Assessment & Plan No constipation no dry mouth. Will start her on 5 mg VESIcare. Refer her to Dr. Engle. Certainly made need some urodynamic study as well. Deferred to his evaluation and management. Follow-up: Db Rivera MD This note was created with the assistance of a speech recognition program. While intending to generate a timely document that accurately reflects the content of the visit, no guarantee can be provided that every grammatical or spelling mistake has been or will be identified or corrected. Thank you for your understanding. documented in this encounter [facility] 03-19-2023 Miscellaneous Notes Return the office about 1 month. Please cancel the patient's appointment today for 3:45. documented in this encounter [facility] 03-19-2023 Telephone encounter Note Return the office about 1 month. Please cancel the patient's appointment today for 3:45. [facility] Work Phone: 03-16-2023 Nurse Note Preoperative Education Checklist- General Surgery date: 03/19/23 Surgery time: 930a Arrival time: 830a 1. Bring a photo ID and your insurance card with you the day of surgery. You will check in at the main lobby of the [facility]- registration desk is straight ahead as soon as you walk in. Tell them you are here for surgery. 2. If you have a Living Will/Durable Power of Chief Of Pediatric Urology for Health Care that is not on [...] after you have bathed. 5. NO nail costa rican/acrylic on at least one finger. If you are having a hand, wrist or foot surgery then all nail costa rican and artificial/acrylic nails must be removed from [...] please call the Preadmission Testing office at [phone], Mon.-Fri. 7 a.m.-3 p.m. Leave a voicemail [...] taking 0 days prior to procedure omega 7-csg-kwa-fish oil (FISH OIL) 300-1,000 mg capsule,delayed release(DR/EC) Stop taking 0 days prior to procedure omeprazole (PriLOSEC) 40 mg capsule Take morning of procedure rimegepant (NURTEC ODT) 75 mg tablet,disintegrating Stop taking 0 days prior to procedure tiZANidine (ZANAFLEX) 2 mg tablet Stop taking 0 days prior to procedure [facility] 03-16-2023 Miscellaneous Notes Preoperative Education Checklist- General Surgery date: 03/19/23 Surgery time: 930a Arrival time: 830a 1. Bring a photo ID and your insurance card with you the day of surgery. You will check in at the main lobby of the [facility]- registration desk is straight ahead as soon as you walk in. Tell them you are here for surgery. 2. If you have a Living Will/Durable Power of Chief Of Pediatric Urology for Health Care that is not on [...] after you have bathed. 5. NO nail costa rican/acrylic on at least one finger. If you are having a hand, wrist or foot surgery then all nail costa rican and artificial/acrylic nails must be removed from [...] please call the Preadmission Testing office at [phone], Mon.-Fri. 7 a.m.-3 p.m. Leave a voicemail [...] taking 0 days prior to procedure omega 8-iiy-sia-fish oil (FISH OIL) 300-1,000 mg capsule,delayed release(DR/EC) Stop taking 0 days prior to procedure omeprazole (PriLOSEC) 40 mg capsule Take morning of procedure rimegepant (NURTEC ODT) 75 mg tablet,disintegrating Stop taking 0 days prior to procedure tiZANidine (ZANAFLEX) 2 mg tablet Stop taking 0 days prior to procedure documented in this encounter [facility] 03-01-2023 Evaluation note Encounter Date Diagnosis Assessment [...] (suspected) exposure to covid-19 (ICD-10 - Z20.822) [facility] 09-21-2023 Evaluation note* Encounter Date Diagnosis Assessment Notes Treatment Notes Treatment Clinical Notes Oct, GERD (gastroesophageal reflux disease) (ICD-10 - K21.9) Patient reports break through and she will in crease omeprazole 40 mg to BID RTO 6 months Oct, Hiatal hernia (ICD-10 - K44.9) Oct, Schatzki's ring (ICD-10 - K22.2) [facility] NoteCARDIAC STRESS TEST Requesting Physician: Mariel Andre [...] to be dictated by Radiology team separately.[facility] [id number] NoteCONSULTATION CONSULTATION DATE: 01/10/2022 HISTORY OF PRESENT [...] is being seen by Dr. Bautista at [place]. The patient is under the care of [facility] with regards to her migraines. The patient is to have significant workups performed including cardiac. The patient also is to see manager rn case, retina specialist. As such, given the patient's [...] again stress the importance of tobacco cessation.[facility] 12-20-2021 NoteCONSULTATION CONSULTATION DATE: 12/20/2021 CHIEF COMPLAINT: Chronic low back pain, left lower extremity pain. HISTORY OF PRESENT ILLNESS: This is a 41-year-old female who was referred to us by Shad Prieto, nurse practitioner, with [facility]. The patient states she has [...] The patient is being seen by a general ledger accountant on 02/16/2022, neuropsychiatrist in April of 2022, and she is to [facility] on 01/10/2022. As such, the patient's [...] is limited at this point. CC: Shad Prieto, RAMANDEEPMarietta Osteopathic ClinicEvaluation noteNo assessment information availableRegency Hospital [facility] Work Phone: Evaluation noteNo InformationNort [employer] Other Evaluation note* Diagnosis Mixed stress and urge urinary incontinence- Primary Mixed incontinence urge and stress (male)(female) [facility] this [facility] Author Siva You [facility] September 12, 2022 1:37pm Note Date/Time September 12, 2022 1:3 7pm [facility] [address] [place] [address] Gastroenterology H&P Signed Patient: Araceli Francois MR#: [id number] : 1980 Acct:[id number] Age/Sex: 42 / F Adm Date: 3 Loc: Room: Type: [facility] Attending Dr: Siva You MD Copies [...] You MD Documented By: Siva You MD 09/12/[id number] Signed By: <Electronically signed by iSva You MD> 09/12/22 2555 [facility] Work Phone: History general Narrative - Reported* [...] Surgical History craniotomy Hospitalization History see above [facility] Discharge instructions Additional Instructions DISCHARGE [...] problems. -Follow up with PCP. -Office number [phone].[facility] Work Phone: InstructionsNot on filedocumented in this encounter [facility] CenterEmotion Media SystemInstructionsNot on filedocumented in this encounter [employer] Summary Purpose Family History No Family [...] section and content) DATE CREATED AUTHOR 08/06/2021 [facility] DATE CREATED AUTHOR AUTHOR'S ORGANIZ ATION 06/08/2022 [facility] DATE CREATED AUTHOR AUTHOR'S ORGANIZ ATION 09/18/[address] [facility] DATE CREATED AUTHOR AUTHOR'S ORGANIZ ATION 02/16/2023 [place] DATE CREATED AUTHOR AUTHOR'S ORGANIZ ATION 04/26/2023 [facility] DATE CREATED AUTHOR AUTHOR'S ORGANIZ ATION 06/03/2023 [facility] DATE CREATED AUTHOR AUTHOR'S ORGANIZ ATION 10/23/2023 [facility] Care Teams (unrecognized sec tion and content) Team Status: Inactive Member Role Status Dates Ron Wallace DO Attending Provider Active NON STAFF Primary Care Provider Active Team Status: Active Member Role Status Dates NON STAFF Primary Care Provider Active Team Status: Inactive Member Role Status Dates NON STAFF Primary Care Provider Active Siva You MD Attending Provider Active Ore Charger Relationship Specialty Start Date End Date Shad Prieto APRN-CNP [address] [place] [address] PCP - General Primary Care 12/06/21 Ore Charger Relationship Specialty Start Date End Date Shad Prieto APRN-CNP [address] [place] [address] PCP - General Primary Care 12/06/21 Ore Charger Relationship Specialty Start Date End Date Shad Prieto APRN-CNP [address] [place] [address] PCP - General Primary Care 12/06/21 Goals (unrecognized section and content) Goals may be documented in a n alternate sectionNo InformationNo InformationNo InformationNot on filedocumented as of this encounterNot on filedocumented as of this encounterNot on [...] BE BASED ON THE PRIMARY CLINICAL RECORDS. [employer] provides no warranty or guarantee of the accuracy or completeness of information in this document.
[2023-10-29 09:34] LABS: Anion Gap 8.7; BUN Creatinine Ratio 10.8; Calcium 9.2 mg/dL (8.5-10.1); Carbon Dioxide 30.9 mmol/L (21.0-32.0); Chloride 102 mmol/L (98-107); Chol HDL Ratio 2.8; Cholesterol 141 mg/dL (<=200); Estimated GFR (African America >60 (>=60); Estimated GFR (Non-African Ame >60 (>=60); Glucose 105 mg/dL (74-106); HDL Cholesterol 50 mg/dL (40-60); LDL Cholesterol Calculated 74.4 mg/dL; Potassium 3.6 mmol/L (3.5-5.1); Sodium 138 mmol/L (136-145); Triglycerides 83 mg/dL (<=150); VLDL CHOLESTEROL 16.6 mg/dL
== END 2023-10-29 08:19 | disposition home or self-care (01) ==
LOC: LAB 08:19
PROVIDERS: Visit Provider Nurse Practitioner
DX: I10 Essential (primary) hypertension (principal); E78.2 Mixed hyperlipidemia
CPT/HCPCS: 36415; 80048; 80061

== ENCOUNTER 2023-11-15 11:04 | Outpatient (OUT) | payer MEDICAID, SELFPAY ==
--- OUTSIDE RECORDS SUMMARY | 2023-10-29 08:43 | XMS_ITS | CCD ---
Author Organization [facility] Care Team Providers Care Milking Machine Mechanic Name Role Phone DO Ron Wallace Attending [...] UnavailMD Siva De La Garza Attending Provider [phone] Siva You Admitting Unavailable Siva You Attending Unavailable NON STAFF Primary Care Unavailable NON STAFF Primary Care Unavailable Joe Wallace Admitting Unavailab Joe Clarke Attending Unavailab Albaro Joseph Unavailable Judy Mtzdoruslan Attending Unavailable Ngirabakgirish, Kadori Primary Care Unavailable Kisha Barkley Unavailable Shammo TRANSFORMER REPAIRER-BIOMASS FACILITATOR, Shad Primary Care Provider [phone] DB RIVERA Attending Unavailable SHAMMO, SHAD Referring [...] (2 sources) DULoxetine Drug Allergy 12-21-[address] [facility] (5 sources) Leucine; Translations: [NICKEL] Drug Allergy 08-05-[address] [facility] (4 sources) Penicillin Drug Allergy 05-28-[address] [facility] (11 sources) DULoxetine; Translations: [duloxetine] Drug Allergy 12-29-19 22 [facility] (12 sources) Naproxen; Translations: [naproxen] Drug Allergy 06-09-19 17 Hives [facility] (9 sources) Penicillins; Translations: [Penicillins] Allergy to substance 03-20-19 17 Shortness Of Breath, Rash [facility] (1 source) Unable to Assess Drug allergy (disorder) 12-21-19 [facility] (3 sources) penicillAMINE Drug Allergy anaphylaxis [facility] Other (4 sources) nickel Drug Allergy 08-05-19 anaphylaxis [facility] (1 source) Bee pollen; Translations: [BEE POLLEN] Propensity to adverse reactions to drug (disorder) 01-12-20 [facility] Repository Medications Current Medications Medication Drug Class(es) [...] 0 10/17/2021 Active Tylenol prn Acti ve [id number] actuat albuterol 0.09 mg/actuat metered dose [...] Start: 12-05-2021 take 2 tablets by mo [facility] once daily losartan (COZAAR) 50 mg [...] reversal. 1 each 0 07/07/2022 Active omega 3-ten-ehj-fish oil (FISH OIL) 300-1,000 mg capsule,delayed release(DR/EC) (3 sources) Start: 05-22-2022 omega 3-qvh-qvb-fish oil (FISH OIL) 300-1,000 mg capsule,delayed release(DR/EC) Take 1 capsule by mouth in the morning. 0 05/22/2022 Active Leawood-3 Fatty Acids-Fish Oil (1 source) Start: 09-12-2022 take 1 capsule by mouth once daily Leawood-3 Fatty Acids-Fish Oil Active 1 CAP PO [...] you must be fasting for labs Normal [facility] Office Visiton 10-22-2023 Follow-up visit [id number] Jt Francois 1980 F Date Provider Department Center 10/22/2023 QUIRINO GHOTRA Family History Problem Relation Age of Onset Heart attack Father Heart attack Paternal Grandfather Stroke Paternal Grandfather Family Status - Relation Status Age at Father Paternal Grandfather Level of Service:25128 [place] OFFICE/OUTPATIENT ESTABLISHED LOW MDM 20 MIN Normal [facility] CBC AND AUTO DIFFon 03-12-19 24 ABSOLUTE BASOPHIL 0.1 X10E9/L Normal 0.0-0.2 [facility] Comment on above: Performed By: #### C BCA, CMP #### [facility] ([id number]) [address], [address] [place] [address] ABSOLUTE NEUTROPHIL 5.8 X10E9/L Normal 1.5-6.6 [facility] Comment on above: Performed By: #### C BCA, CMP #### [facility] ([id number]) [address] [place] [address], [address] [place] [address] Basophils/100 WBC (Bld) 1.0 % Normal [facility] Comment on above: Performed By: #### C BCA, CMP #### [facility] ([id number]) [address], [address] [place] [address] Eosinophils (Bld) [#/Vol] 0.2 10*3/uL Normal 0.0-0.4 [facility] Comment on above: Performed By: #### C BCA, CMP #### [facility] ([id number]) [address], [facility] [address] [place] [address] Eosinophils/100 WBC (Bld) 2.3 % Normal [facility] Comment on above: Performed By: #### C MARIAM, CMP #### [facility] ([id number]) [address] [address] [place] [address] Erythrocyte distribution width (RBC) [Ratio] 14.3 % Normal 11.5-15.0 [facility] Comment on above: Performed By: #### C MARIAM, CMP #### [facility] ([id number]) [address] [address] [place] [address] Hematocrit (Bld) [Volume fraction] 42.2 % Normal 35-47 [facility] Comment on above: Performed By: #### C MARIAM, CMP #### [facility] ([id number]) [address] [address] [place] [address] Hemoglobin (Bld) [Mass/Vol] 14.4 g/dL Normal 11.7-15.5 [facility] Comment on above: Performed By: #### C BCA, CMP #### [facility] ([id number]) [address] [address] [place] [address] Lymphocytes (Bld) [#/Vol] 2.5 10*3/uL Normal 1.0-3.5 [facility] Comment on above: Performed By: #### C BCA, CMP #### [facility] ([id number]) [address] [address] [place] [address] Lymphocytes/100 WBC (Bld) 27.1 % Normal [facility] Comment on above: Performed By: #### C BCA, CMP #### [facility] ([id number]) [address], [address] [place] [address] MCH (RBC) [Entitic mass] 30.0 pg Normal 27-34 [facility] Comment on above: Performed By: #### C BCA, CMP #### [facility] ([id number]) [address], [address] [place] [address] MCHC (RBC) [Mass/Vol] 34.1 g/dL Normal 32-36 [facility] Comment on above: Performed By: #### C MARIAM, CMP #### [facility] ([id number]) [address], [address] [place] [address] MCV (RBC) [Entitic vol] 88 fL Normal 80-100 [facility] Comment on above: Performed By: #### C BCA, CMP #### [facility] ([id number]) [address], [address] [place] [address] Monocytes (Bld) [#/Vol] 0.6 10*3/uL Normal 0-0.9 [facility] Comment on above: Performed By: #### C BCA, CMP #### [facility] ([id number]) [address], [address] [place] [address] Monocytes/100 WBC (Bld) 6.5 % Normal [facility] Comment on above: Performed By: #### C BCA, CMP #### [facility] ([id number]) [address], [address] [place] [address] Neutrophils/100 WBC (Bld) 63.1 % Normal [facility] Comment on above: Performed By: #### C BCA, CMP #### [facility] ([id number]) [address], [address] [place] [address] Platelet mean volume (Bld) [Entitic vol] 8.2 fL Normal 7-12 [facility] Comment on above: Performed By: #### C BCA, CMP #### [facility] ([id number]) [address], [address] [place] [address] Platelets (Bld) [#/Vol] 296 10*3/uL Normal 150-450 [facility] Comment on above: Performed By: #### C BCA, CMP #### [facility] ([id number]) [address], [address] [place] [address] RBC COUNT 4.80 X10E12/L Normal 3.80-5.20 [facility] Comment on above: Performed By: #### C BCA, CMP #### [facility] ([id number]) [address] [address] [place] [address] WBC (Bld) [#/Vol] 9.1 10*3/uL Normal 4.0-11.0 [facility] Comment on above: Performed By: #### C BCA, CMP #### [facility] ([id number]) [address], [address] [place] [address] COMPREHENSIVE METABOLIC PANE Young 03-12-2023 Albumin [Mass/Vol] 3.7 g/dL Normal 3.2-5.3 [facility] Comment on above: Performed By: #### C BCA, CMP #### [facility] ([id number]) [address], [address] [place] [address] ALP [Catalytic activity/Vol] 103 U/L Normal 39-130 [facility] Comment on above: Performed By: #### C BCA, CMP #### [facility] ([id number]) [address], [address] [place] [address] ALT [Catalytic activity/Vol] 12 U/L Normal 0-31 [facility] Comment on above: Performed By: #### C BCA, CMP #### [facility] ([id number]) [address], [address] [place] [address] Anion gap [Moles/Vol] 7 mmol/L Normal 5-15 [facility] Comment on above: Performed By: #### C BCA, CMP #### [facility] ([id number]) [address], [address] [place] [address] AST [Catalytic activity/Vol] 13 U/L Normal 0-41 [facility] Comment on above: Performed By: #### C BCA, CMP #### [facility] ([id number]) [address], [address] [place] [address] Bilirubin [Mass/Vol] 0.8 mg/dL Normal 0.3-1.2 [facility] Comment on above: Performed By: #### C BCA, CMP #### [facility] ([id number]) [address], [address] [place] [address] Calcium [Mass/Vol] 8.7 mg/dL Normal 8.5-10.5 [facility] Comment on above: Performed By: #### C BCA, CMP #### [facility] ([id number]) [address], [address] [place] [address] Chloride [Moles/Vol] 107 mmol/L Normal 98-109 [facility] Comment on above: Performed By: #### C BCA, CMP #### [facility] ([id number]) [address], [address] [place] [address] CO2 [Moles/Vol] 30 mmol/L Normal 22-32 [facility] Comment on above: Performed By: #### C BCA, CMP #### [facility] ([id number]) [address], [address] [place] [address] Creatinine [Mass/Vol] 0.73 mg/dL Normal 0.40-1.00 [facility] Comment on above: Result Comment: METH OD TRACEABLE TO IDMS STANDARD Performed By: #### C BCA, CMP #### [facility] ([id number]) [address], [address] [place] [address] eGFR (CKD-EPI) NON-RACE DEPENDENT >90 Normal >59 [facility] Comment on above: Result Comment: Reported eGFR is based on the CKD-EPI 2020 equation that does not use a race coefficient. Performed By: #### C BCA, CMP #### [facility] ([id number]) [address], [address] [place] [address] Glucose [Mass/Vol] 92 mg/dL Normal 65-99 [facility] Comment on above: Performed By: #### C BCA, CMP #### [facility] ([id number]) [address], [address] [place] [address] Potassium [Moles/Vol] 3.9 mmol/L Normal 3.5-5.0 [facility] Comment on above: Performed By: #### C BCA, CMP #### [facility] ([id number]) [address], [address] [place] [address] Protein [Mass/Vol] 6.4 g/dL Normal 6.0-8.0 [facility] Comment on above: Performed By: #### C BCA, CMP #### [facility] ([id number]) [address], [address] [place] [address] Sodium [Moles/Vol] 144 mmol/L Normal 134-146 [facility] Comment on above: Performed By: #### C BCA, CMP #### [facility] ([id number]) [address] [address] [place] [address] Urea nitrogen [Mass/Vol] 9 mg/dL Normal 5-23 [facility] Comment on above: Performed By: #### C BCA, CMP #### [facility] ([id number]) [address] [place] [address] COVID + FLU Quick Testingon 03-01-2023 SARS-CoV-2 (COVID-19) RNA SARAH+probe Ql (Unsp spec) Negative JAYS Other COVID + FLU Quick Testing Negative JAYS Other CT ABDOMEN W WO CONTon 02-06 [...] Clarke MD on 02/06/2023 4:11 PM Normal [facility] 09-12-2022 L --- Specimen: [id number] Received: 09/12/22 Status: KASSIDY Camilo Num: [id number] Spec Type: Surgical Subm Dr: Siva You MD Tissues: A Esophagus Biopsy (ESOPHAGUS BX) Procedures: HE/Alfonso Gross/Micro L4 Age/ Patient Sex Location Account Attending Physician Araceli Francois 42/F [id number] Siva You MD SPEC NUM: [id number] RECD: 09/12/22 STATUS: KASSIDY CAMILO NUM: [id number] SHANNON: 09/12/22- DR: Siva You MD ENTERED: [...] The microscopic examination confirms the diagnosis. Specimen: [id number] Received: 09/12/22 Status: KASSIDY Camilo Num: [id number] Spec Type: Surgical Subm Dr: Siva You MD Tissues: A Esophagus Biopsy (ESOPHAGUS BX) Procedures: HE/2, Gross/Micro L4 Patient: Araceli Francois [id number] (Continued) Specimen: [id number] Received: 09/12/22 (Continued) Signed (signature on file) Rory Jade MD 09/14/22 1155 Specimen: Received: 09/12/22 Status: KASSIDY Leslee Num: [id number] Spec Type: Surgical Subm Dr: Siva You MD Tissues: A Esophagus Biopsy (ESOPHAGUS BX) Procedures: BELGICA/Alfonso, Gross/Micro L4 Patient: Araceli Francois [id number] (Continued) Specimen: [id number] Received: 09/12/22 (Continued) CPT Codes 53805 Specimen: [id number] Received: 09/12/22 Status: KASSIDY Camilo Num: [id number] Spec Type: Surgical Subm Dr: Siva You MD Tissues: A Esophagus Biopsy (ESOPHAGUS BX) Procedures: [place] ESQUEDA/Eve L4 Patient: Araceli Francois [id number] (Continued) Signed (signature on file) Rory Jade MD 09/14/22 7436 [facility] LIPID PROFILEon 04-21-2022 CHOL-HDL RATIO NORM SEE BELOW Normal [facility] Comment on above: Result Comment: 3.3 - 4.4 LOW RISK 4.4 - 7.1 AVERAGE RISK 7.1 - 11.0 MODERATE RISK >11.0 HIGH RISK Performed By: #### L IPID, CMP #### [facility] [address] [address] [address] Edil Gayle Cholesterol [Mass/Vol] 247 mg/dL Critically high <=200 [facility] Comment on above: Performed By: #### L IPID, CMP #### [facility] [address] [address] [address] Edil Gayle Cholesterol in HDL [Mass/Vol] 46 mg/dL Normal 40-60 [facility] Comment on above: Performed By: #### L IPID, CMP #### [facility] [address] [address] [address] Edil Gayle Cholesterol in LDL [Mass/Vol] 180.6 mg/dL Normal [facility] Comment on above: Performed By: #### L IPID, CMP #### [facility] [address] [address] [address] Edil Gayle Cholesterol.total/C holesterol in HDL [Mass ratio] 5.4 {ratio} Normal [facility] Comment on above: Performed By: #### L IPID, CMP #### [facility] [address] [address] [address] Edil Gayle HDL NORMAL > or = 60 mg/dl - LO W CARDIOVASCULAR RISK <40 mg/dl - HIGH CARDIOVASCULAR RISK Normal [facility] Comment on above: Performed By: #### L IPID, CMP #### [facility] [address] [address] [address] Edil Gayle LDL CALC NORMAL SEE BELOW Normal [facility] Comment on above: Result Comment: <100 mg/dl OPTIMAL 100 - 129 mg/dl NEAR OR ABOVE OPTIMAL 130 - 159 mg/dl BORDERLINE HIGH 160 - 189 mg/dl HIGH >190 mg/dl VERY HIGH Performed By: #### L IPID, CMP #### [facility] [address] [address] [address] Edil Gayle Triglyceride [Mass/Vol] 102 mg/dL Normal <=150 [facility] Comment on above: Performed By: #### L IPID, CMP #### [facility] [address] [place] [address] Dr. Edil Gayle VLDL CALC 20.4 mg/dL Normal [facility] Comment on above: Performed By: #### L IPID, CMP #### [facility] [address] [place] [address] Dr. Edil Gayle PROF 14(COMP METB)on 023 Albumin [Mass/Vol] 3.4 g/dL Normal 3.4-5.0 [facility] Comment on above: Performed By: #### L IPID, CMP #### [facility] [address] [place] [address] Dr. Edil Gayle Albumin/Globulin [Mass ratio] 0.9 {ratio} Normal [facility] Comment on above: Performed By: #### L IPID, CMP #### [facility] [address] [place] [address] Dr. Edil Gayle ALP [Catalytic activity/Vol] 117 U/L Critically high 46-116 [facility] Comment on above: Performed By: #### L IPID, CMP #### [facility] [address] [place] [address] Dr. Edil Gayle ALT [Catalytic activity/Vol] 25 U/L Normal 14-59 [facility] Comment on above: Performed By: #### L IPID, CMP #### [facility] [address] [place] [address] Dr. Edil Gayle Anion gap [Moles/Vol] 11.5 mmol/L Normal [facility] Comment on above: Performed By: #### L IPID, CMP #### [facility] [address] [place] [address] Dr. Edil Gayle AST [Catalytic activity/Vol] 16 U/L Normal 15-37 [facility] Comment on above: Performed By: #### L IPID, CMP #### [facility] [address] [place] [address] Dr. Edil Gayle Bilirubin [Mass/Vol] 0.4 mg/dL Normal 0.2-1.0 [facility] Comment on above: Performed By: #### L IPID, CMP #### [facility] [address] [place] [address] Dr. Edil Gayle Calcium [Mass/Vol] 8.9 mg/dL Normal 8.5-10.1 [facility] Comment on above: Performed By: #### L IPID, CMP #### [facility] [address] [place] [address] Dr. Edil Gayle Chloride [Moles/Vol] 106 mmol/L Normal 98-107 [facility] Comment on above: Performed By: #### L IPID, CMP #### [facility] [address] [place] [address] Dr. Edil Gayle CO2 [Moles/Vol] 29.8 mmol/L Normal 21.0-32.0 [facility] Comment on above: Performed By: #### L IPID, CMP #### [facility] [address] [place] [address] Dr. Edil Gayle Creatinine [Mass/Vol] 0.58 mg/dL Normal 0.55-1.02 [facility] Comment on above: Performed By: #### L IPID, CMP #### [facility] [address] [place] [address] Dr. Edil Gayle EGFR-AF CHILEAN >60 Normal >=60 [facility] Comment on above: Performed By: #### L IPID, CMP #### [facility] [address] [place] [address] Dr. Edil Gayle EGFR-NON AF CHILEAN >60 Normal >=60 [facility] Comment on above: Performed By: #### L IPID, CMP #### [facility] [address] [place] [address] Dr. Edil Gayle Globulin (S) [Mass/Vol] 3.6 g/dL Normal [facility] Comment on above: Performed By: #### L IPID, CMP #### [facility] [address] [place] [address] Dr. Edil Gayle Glucose [Mass/Vol] 103 mg/dL Normal 74-106 [facility] Comment on above: Performed By: #### L IPID, CMP #### [facility] [address] [place] [address] Dr. Edil Gayle Potassium [Moles/Vol] 4.3 mmol/L Normal 3.5-5.1 [facility] Comment on above: Performed By: #### L IPID, CMP #### [facility] [address] [place] [address] Dr. Edil Gayle Protein [Mass/Vol] 7.0 g/dL Normal 6.4-8.2 [facility] Comment on above: Performed By: #### L IPID, CMP #### [facility] [address] [place] [address] Dr. Edil Gayle Sodium [Moles/Vol] 143 mmol/L Normal 136-145 [facility] Comment on above: Performed By: #### L IPID, CMP #### [facility] [address] [place] [address] Dr. Edil Gayle Urea nitrogen [Mass/Vol] 12.0 mg/dL Normal 7.0-18.0 [facility] Comment on above: Performed By: #### L IPID, CMP #### [facility] [address] [place] [address] Dr. Edil Gayle Urea nitrogen/Creatinine [Mass ratio] 20.7 mg/mg Normal [facility] Comment on above: Performed By: #### L IPID, CMP #### [facility] [address] [place] [address] Dr. Edil Gayle CULTURE THROATon 04-03-2022 CULTURE THROAT Culture Observations : NORMAL RESPIRATORY JAYLEEN. Normal [facility] Comment on above: Performed By: #### F T4 #### [facility] [address] [place] [address] Dr. Edil Gayle RESPIRATORY PANEL PLUSon Adenovirus Not detected Normal NOT DETECTED [facility] Comment on above: Performed By: #### F T4 #### [facility] [address] [place] [address] Dr. Edil Velasco Parapertusis Not detected Normal NOT DETECTED [facility] Comment on above: Performed By: #### F T4 #### [facility] [address] [place] [address] Dr. Edil Velasco Pertussis Not detected Normal NOT DETECTED [facility] Comment on above: Performed By: #### F T4 #### [facility] [address] [place] [address] Dr. Edil Gayle Chlamydia Pneumoniae Not detected Normal NOT DETECTED [facility] Comment on above: Performed By: #### F T4 #### [facility] [address] [place] [address] Dr. Edil Gayle Coronavirus 229E Not detected Normal NOT DETECTED [facility] Comment on above: Performed By: #### F T4 #### [facility] [address] [place] [address] Dr. Edil Gayle Coronavirus HKU1 Not detected Normal NOT DETECTED [facility] Comment on above: Performed By: #### F T4 #### [facility] [address] [place] [address] Dr. Edil Gayle Coronavirus NL63 Not detected Normal NOT DETECTED [facility] Comment on above: Performed By: #### F T4 #### [facility] [address] [place] [address] Dr. Edil Gayle Coronavirus OC43 Not detected Normal NOT DETECTED [facility] Comment on above: Performed By: #### F T4 #### [facility] [address] [place] [address] Dr. Edil Gayle Influenza A H1 Not detected Normal NOT DETECTED [facility] Comment on above: Performed By: #### F T4 #### [facility] [address] [place] [address] Dr. Edil Gayle Influenza A H1 2009 Not detected Normal NOT DETECTED [facility] Comment on above: Performed By: #### F T4 #### [facility] [address] [place] [address] Dr. Edil Gayle Influenza A H3 Not detected Normal NOT DETECTED [facility] Comment on above: Performed By: #### F T4 #### [facility] [address] [place] [address] Dr. Edil Gayle Influenza B Not detected Normal NOT DETECTED [facility] Comment on above: Performed By: #### F T4 #### [facility] [address] [place] [address] Dr. Edil Gayle Metapneumovirus Not detected Normal NOT DETECTED [facility] Comment on above: Performed By: #### F T4 #### [facility] [address] [place] [address] Dr. Edil Gayle Mycoplas. Pneumoniae Not detected Normal NOT DETECTED [facility] Comment on above: Performed By: #### F T4 #### [facility] Laboratory [address] [place] [address] Dr. Edil Gayle Parainfluenza 1 Not detected Normal NOT DETECTED [facility] Comment on above: Performed By: #### F T4 #### [facility] [address] [place] [address] Dr. Edil Gayle Parainfluenza 2 Not detected Normal NOT DETECTED [facility] Comment on above: Performed By: #### F T4 #### [facility] [address] [place] [address] Dr. Edil Gayle Parainfluenza 3 Not detected Normal NOT DETECTED [facility] Comment on above: Performed By: #### F T4 #### [facility] [address] [place] [address] Dr. Edil Gayle Parainfluenza 4 Not detected Normal NOT DETECTED [facility] Comment on above: Performed By: #### F T4 #### [facility] [address] [place] [address] Dr. Edil Gayle Rhino/Enterovirus Not detected Normal NOT DETECTED [facility] Comment on above: Performed By: #### F T4 #### [facility] [address] [place] [address] Dr. Edil Gayle RP2 Header 1 RESPIRATORY PANEL: VIRUSES Normal [facility] Comment on above: Performed By: #### F T4 #### [facility] [address] [place] [address] Dr. Edil Gayle RP2 Header 2 RESPIRATORY PANEL: BACTERIA Normal [facility] Comment on above: Performed By: #### F T4 #### [facility] [address] [place] [address] Dr. Edil Gayle RSV Not detected Normal NOT DETECTED [facility] Comment on above: Performed By: #### F T4 #### [facility] [address] [place] [address] Dr. Edil Gayle SARS-CoV-2 (COVID-19) RNA SARAH+probe Ql (Unsp spec) Not detected Normal NOT DETECTED [facility] Comment on above: Performed By: #### F T4 #### [facility] [address] [place] [address] Dr. Edil Gayle STREPT SCREENon 04-03-2022 STREP SCREEN A Negative Normal NEGATIVE [facility] Comment on above: Performed By: #### F T4 #### [facility] [address] [place] [address] Dr. Edil Gayle ECHOCARDIO M/2D COMPLETEon 1 04-03-2021 ECHOCARDIO M/2D COMPLETE Patient: ARACELI FRANCOIS Exam Date: 01/31/2022 : 1980 Gender:F Ordering : QUIRINO ANDRE Admission #: [id number] Family : Order #: [id number] CLICK HERE TO VIEW EXAM ECHOCARDIOGRAM REPORT [...] Borges M.D. on 02/07/2022 at 09:43 Normal [facility] STRESS/REST MULTIon 01-31 IA STRESS/REST MULTI Patient: ARACELI FRANCOIS Exam Date: 01/31/2022 : 1980 Gender:F Ordering : QUIRINO GillMoira JES Admission #: [id number] Family : Order #: [id number] CLICK HERE TO VIEW EXAM RADIOLOGY REPORT [...] Lyn MD on 02/02/2022 at 11:41 Normal [facility] MR head/brain wo/w conon MR head/brain wo/w con [facility] Main [place] [address] [place] [address] MRI Report Signed Patient: Araceli Francois MR#: [id number] : 1980 Acct:[id number] Age/Sex: 41 / F ADM Date: 12/20/21 Loc: MR Room: Type: [facility] Attending Dr: Ron Wallace DO Copies to: [...] Efrain Chapman M.D.12/21/2021 8:39 AM Dictation Location: [place] [address] Transcribed By: [facility] 12/21/21838 Dictated By: Efrain Chapman II, MD 12/21/21815 Signed By: 12/21/21838 [facility] XR LSPINE W_OBLS AND FLEX_EX Ton 12-21-2021 [...] by: MARCE LYN Date: 2021-12-21 07:11 Normal [facility] US SINGLE QUAD RT UPPERon US [...] by: MARCE LYN Date: 2021-12-11 08:32 Normal [facility] XR CHEST 2 Von 12-06-2021 XR [...] MARCE LYN Date: 2021-12-06 15:35 Normal [facility] MAMM SCREEN 3D TISHA CADon 11-08-2021 MAMM SCREEN 3D TISHA CAD Patient: ARACLEI FRANCOIS Exam Date: 11/08/2021 : 1980 Gender:F Ordering : SHAD PRITEO CLARIFIER-C Admission #: [id number] Family : Order #: [id number] CLICK HERE TO VIEW EXAM RADIOLOGY REPORT PROCEDURE: MAMMOGRAM SCREENING 3D BILATERAL CAD COMPARISON: MAMM SCREEN 3D TISHA CAD, 07/19/2020. INDICATIONS: Screening mammography Calculator Name NCI Breast Cancer Risk Assessment Tool 5 Year Breast Cancer Risk 0.50% Lifetime Breast Cancer Risk 6.50% Personal Breast Cancer No Personal Ovarian Cancer No Treatments None Family Cancers None LOCATION: [facility] BREAST COMPOSITION: Scattered areas fibroglandular density. [...] MD on 11/09/2021 at 07:[address] [facility] CBC AUTO DIFFon 11-01-2021 BASO # 0.1 103/ul Normal 0.0-0.1 [facility] Comment on above: Performed By: #### F T4 #### [facility] [address] [place], [place] [address] Dr. Edil Gayle Basophils/100 WBC (Bld) 1.2 % Normal 0.2-2.0 [facility] Comment on above: Performed By: #### F T4 #### [facility] [address] [place] [address] Dr. Edil Gayle EO # 0.3 103/ul Normal 0.0-0.[address] [facility] Comment on above: Performed By: #### F T4 #### [facility] [address] [place] [address] Dr. Edil Gayle Eosinophils/100 WBC (Bld) 2.7 % Normal 0.9-7.0 [facility] Comment on above: Performed By: #### F T4 #### [facility] [address] [place] [address] Dr. Edil Gayle Erythrocyte distribution width (RBC) [Ratio] 12.8 % Normal 11.0-15.0 [facility] Comment on above: Performed By: #### F T4 #### [facility] [address] [place] [address] Dr. Edil Gayle Hematocrit (Bld) [Volume fraction] 46.5 % Normal 36.0-48.0 [facility] Comment on above: Performed By: #### F T4 #### [facility] [address] [place] [address] Dr. Edil Gayle Hemoglobin (Bld) [Mass/Vol] 15.5 g/dL Normal 12.0-16.[address] [facility] Comment on above: Performed By: #### F T4 #### [facility] [address] [place] [address] Dr. Edil Gayle IG # 0.02 10e3/ul Normal 0.00-0.[address] [facility] Comment on above: Performed By: #### F T4 #### [facility] [address] [place] [address] Dr. Edil Gayle IG % 0.2 % Normal 0.0-0.[address] [facility] Comment on above: Performed By: #### F T4 #### [facility] [address] [place] [address] Dr. Edil Gayle LYMPH # 2.1 103/ul Normal 1.2-3.[address] [facility] Comment on above: Performed By: #### F T4 #### [facility] [address] [place] [address] Dr. Edil Gayle Lymphocytes/100 WBC (Bld) 20.4 % Critically low 20.5-60.0 [facility] Comment on above: Performed By: #### F T4 #### [facility] [address] [place] [address] Dr. Edil Gayle MANUAL DIFF REQ NO Normal [facility] Comment on above: Performed By: #### F T4 #### [facility] [address] [place] [address] Dr. Edil Gayle MCH (RBC) [Entitic mass] 30.3 pg Normal 26.7-34.0 [facility] Comment on above: Performed By: #### F T4 #### [facility] [address] [place] [address] Dr. Edil Gayle MCHC (RBC) [Mass/Vol] 33.3 g/dL Normal 29.9-35.2 [facility] Comment on above: Performed By: #### F T4 #### [facility] [address] [place] [address] Dr. Edil Gayle MCV (RBC) [Entitic vol] 90.8 fL Normal 81.0-99.0 [facility] Comment on above: Performed By: #### F T4 #### [facility] [address] [place] [address] Dr. Edil Gayle MONO # 0.5 103/ul Normal 0.3-0.[address] [facility] Comment on above: Performed By: #### F T4 #### [facility] [address] [place] [address] Dr. Edil Gayle Monocytes/100 WBC (Bld) 5.2 % Normal 1.7-12.[address] [facility] Comment on above: Performed By: #### F T4 #### [facility] [address] [place] [address] Dr. Edil Gayle NEUT # 7.3 103/ul Critically high 1.4-6.5 [facility] Comment on above: Performed By: #### F T4 #### [facility] [address] [place] [address] Dr. Edil Gayle Neutrophils/100 WBC (Bld) 70.3 % Normal 43.0-75.0 [facility] Comment on above: Performed By: #### F T4 #### [facility] [address] [place] [address] Dr. Edil Gayle Platelet mean volume (Bld) [Entitic vol] 8.8 fL Critically low 9.5-13.5 [facility] Comment on above: Performed By: #### F T4 #### [facility] [address] [place] [address] [address] Edil Gayle PLT 294 103/ul Normal 150-[address] [facility] Comment on above: Performed By: #### F T4 #### [facility] [address] [place] [address] Dr. Edil Gayle RBC 5.12 106/ul Normal 4.20-5.40 [facility] Comment on above: Performed By: #### F T4 #### [facility] [address] [place] [address] Dr. Edil Gayle WBC 10.3 103/ul Normal 4.0-11.0 [facility] Comment on above: Performed By: #### F T4 #### [facility] [address] [place] [address] Dr. Edil Gayle FREE T4on 11-01-2021 Free T4 [Mass/Vol] 0.88 ng/dL Normal 0.76-1.46 [facility] Comment on above: Performed By: #### F T4 #### [facility] [address] [place] [address] Dr. Edil Gayle GLYCOHEMOGLOBIN A1Con 2021 ADA RECOMMENDATION SEE BELOW Normal [facility] Comment on above: Result Comment: ADA RECOMMENDED LIMIT 4.0 - 6.0 ADA THERAPEUTIC TARGET < 7.0 ACTION SUGGESTED > 7.0 Performed By: #### A 1C #### [facility] [address] [place] [address] Dr. Edil Gayle Glucose [Mass/Vol] 108 mg/dL Normal [facility] Comment on above: Performed By: #### A 1C #### [facility] [address] [place] [address] [address] Edil Gayle HbA1c (Bld) [Mass fraction] 5.4 % Normal 4.5-6.2 [facility] Comment on above: Performed By: #### A 1C #### [facility] [address] [place] [address] Dr. Edil Gayle LIPID PROFILEon 11-01-2021 CHOL-HDL RATIO NORM SEE BELOW Normal [facility] Comment on above: Result Comment: 3.3 - 4.4 LOW RISK 4.4 - 7.1 AVERAGE RISK 7.1 - 11.0 MODERATE RISK >11.0 HIGH RISK Performed By: #### T SH, CMP, LIPID #### [facility] [address] [place] [address] [address] Edil Gayle Cholesterol [Mass/Vol] 246 mg/dL Critically high <=200 [facility] Comment on above: Performed By: #### T SH, CMP, LIPID #### [facility] [address] [place] [address] Dr. Edil Gayle Cholesterol in HDL [Mass/Vol] 48 mg/dL Normal 40-60 [facility] Comment on above: Performed By: #### T SH, CMP, LIPID #### [facility] [address] [place] [address] Dr. Edil Gayle Cholesterol in LDL [Mass/Vol] 172.6 mg/dL Normal [facility] Comment on above: Performed By: #### T SH, CMP, LIPID #### [facility] [address] [place] [address] Dr. Edil Gayle Cholesterol.total/C holesterol in HDL [Mass ratio] 5.1 {ratio} Normal [facility] Comment on above: Performed By: #### T SH, CMP, LIPID #### [facility] [address] [place] [address] Dr. Edil Gayle HDL NORMAL > or = 60 mg/dl - LO W CARDIOVASCULAR RISK <40 mg/dl - HIGH CARDIOVASCULAR RISK Normal [facility] Comment on above: Performed By: #### T SH, CMP, LIPID #### [facility] [address] [place] [address] Dr. Edil Gayle LDL CALC NORMAL SEE BELOW Normal [facility] Comment on above: Result Comment: <100 mg/dl OPTIMAL 100 - 129 mg/dl NEAR OR ABOVE OPTIMAL 130 - 159 mg/dl BORDERLINE HIGH 160 - 189 mg/dl HIGH >190 mg/dl VERY HIGH Performed By: #### T SH, CMP, LIPID #### [facility] [address] [place] [address] [address] Edil Gayle Triglyceride [Mass/Vol] 127 mg/dL Normal <=150 [facility] Comment on above: Performed By: #### T SH, CMP, LIPID #### [facility] [address] [place] [address] [address] Edil Gayle VLDL CALC 25.4 mg/dL Normal [facility] Comment on above: Performed By: #### T SH, CMP, LIPID #### [facility] [address] [place] [address] [address] Edil Gayle PROF 14(COMP METB)on 022 Albumin [Mass/Vol] 3.6 g/dL Normal 3.4-5.0 [facility] Comment on above: Performed By: #### T SH, CMP, LIPID #### [facility] [address] [place] [address] [address] Edil Gayle Albumin/Globulin [Mass ratio] 1.0 {ratio} Normal [facility] Comment on above: Performed By: #### T SH, CMP, LIPID #### [facility] [address] [place] [address] [address] Edil Gayle ALP [Catalytic activity/Vol] 109 U/L Normal 46-[address] [facility] Comment on above: Performed By: #### T SH, CMP, LIPID #### [facility] [address] [place] [address] [address] Edil Gayle ALT [Catalytic activity/Vol] 21 U/L Normal 14-59 [facility] Comment on above: Performed By: #### T SH, CMP, LIPID #### [facility] [address] [place] [address] [address] Edil Gayle Anion gap [Moles/Vol] 10.9 mmol/L Normal [facility] Comment on above: Performed By: #### T SH, CMP, LIPID #### [facility] [address] [place] [address] [address] Edil Gayle AST [Catalytic activity/Vol] 15 U/L Normal 15-37 [facility] Comment on above: Performed By: #### T SH, CMP, LIPID #### [facility] [address] [place] [address] [address] Edil Gayle Bilirubin [Mass/Vol] 0.8 mg/dL Normal 0.2-1.0 [facility] Comment on above: Performed By: #### T SH, CMP, LIPID #### [facility] [address] [place] [address] Dr. Edil Gayle Calcium [Mass/Vol] 9.3 mg/dL Normal 8.5-10.1 [facility] Comment on above: Performed By: #### T SH, CMP, LIPID #### [facility] [address] [place] [address] Dr. Edil Gayle Chloride [Moles/Vol] 104 mmol/L Normal 98-107 [facility] Comment on above: Performed By: #### T SH, CMP, LIPID #### [facility] [address] [place] [address] Dr. Edil Gayle CO2 [Moles/Vol] 30.6 mmol/L Normal 21.0-32.0 [facility] Comment on above: Performed By: #### T SH, CMP, LIPID #### [facility] [address] [place] [address] Dr. Edil Gayle Creatinine [Mass/Vol] 0.77 mg/dL Normal 0.55-1.02 [facility] Comment on above: Performed By: #### T SH, CMP, LIPID #### [facility] [address] [place] [address] Dr. Edil Gayle EGFR-AF CHILEAN >60 Normal >=60 [facility] Comment on above: Performed By: #### T SH, CMP, LIPID #### [facility] [address] [place] [address] Dr. Edil Gayle EGFR-NON AF CHILEAN >60 Normal >=60 [facility] Comment on above: Performed By: #### T SH, CMP, LIPID #### [facility] [address] [place] [address] Dr. Edil Gayle Globulin (S) [Mass/Vol] 3.7 g/dL Normal [facility] Comment on above: Performed By: #### T SH, CMP, LIPID #### [facility] [address] [place] [address] Dr. Edil Gayle Glucose [Mass/Vol] 106 mg/dL Normal 74-106 [facility] Comment on above: Performed By: #### T SH, CMP, LIPID #### [facility] [address] [place] [address] Dr. Edil Gayle Potassium [Moles/Vol] 4.5 mmol/L Normal 3.5-5.1 [facility] Comment on above: Performed By: #### T SH, CMP, LIPID #### [facility] [address] [place] [address] Dr. Edil Gayle Protein [Mass/Vol] 7.3 g/dL Normal 6.4-8.2 [facility] Comment on above: Performed By: #### T SH, CMP, LIPID #### [facility] [address] [place] [address] Dr. Edil Gayle Sodium [Moles/Vol] 141 mmol/L Normal 136-145 [facility] Comment on above: Performed By: #### T SH, CMP, LIPID #### [facility] [address] [place] [address] Dr. Edil Gayle Urea nitrogen [Mass/Vol] 11.0 mg/dL Normal 7.0-18.0 [facility] Comment on above: Performed By: #### T SH, CMP, LIPID #### [facility] [address] [place] [address] Dr. Edil Gayle Urea nitrogen/Creatinine [Mass ratio] 14.3 mg/mg Normal [facility] Comment on above: Performed By: #### T SH, CMP, LIPID #### [facility] [address] [place] [address] Dr. Edil Gayle TSHon 11-01-2021 TSH 2.620 uIU/mL Normal 0.358-3.740 [facility] Comment on above: Performed By: #### T SH, CMP, LIPID #### [facility] [address] [place] [address] Dr. Edil Gayle CBC AUTO DIFFon 07-28-2021 BASO # 0.1 103/ul Normal 0.0-0.1 [facility] Comment on above: Performed By: #### C BC #### [facility] [address] [place] [address] Dr. Edil Gayle Basophils/100 WBC (Bld) 1.0 % Normal 0.2-2.0 [facility] Comment on above: Performed By: #### C BC #### [facility] [address] [place] [address] Dr. Edil Gayle EO # 0.3 103/ul Normal 0.0-0.7 [facility] Comment on above: Performed By: #### C BC #### [facility] [address] [place] [address] Dr. Edil Gayle Eosinophils/100 WBC (Bld) 2.9 % Normal 0.9-7.0 [facility] Comment on above: Performed By: #### C BC #### [facility] [address] [place] [address] Dr. Edil Gayle Erythrocyte distribution width (RBC) [Ratio] 13.0 % Normal 11.0-15.0 [facility] Comment on above: Performed By: #### C BC #### [facility] [address] [place] [address] Dr. Edil Gayle Hematocrit (Bld) [Volume fraction] 46.3 % Normal 36.0-48.0 [facility] Comment on above: Performed By: #### C BC #### [facility] [address] [place] [address] Dr. Edil Gayle Hemoglobin (Bld) [Mass/Vol] 15.4 g/dL Normal 12.0-16.0 [facility] Comment on above: Performed By: #### C BC #### [facility] [address] [place] [address] Dr. Edil Gayle IG # 0.03 10e3/ul Normal 0.00-0.03 [facility] Comment on above: Performed By: #### C BC #### [facility] [address] [place] [address] Dr. Edil Gayle IG % 0.3 % Normal 0.0-0.5 [facility] Comment on above: Performed By: #### C BC #### [facility] [address] [place] [address] Dr. Edil Gayle LYMPH # 2.4 103/ul Normal 1.2-3.8 [facility] Comment on above: Performed By: #### C BC #### [facility] [address] [place] [address] Dr. Edil Gayle Lymphocytes/100 WBC (Bld) 22.4 % Normal 20.5-60.0 [facility] Comment on above: Performed By: #### C BC #### [facility] [address] [place] [address] Dr. Edil Gayle MANUAL DIFF REQ NO Normal [facility] Comment on above: Performed By: #### C BC #### [facility] [address] [place] [address] Dr. Edil Gayle MCH (RBC) [Entitic mass] 30.9 pg Normal 26.7-34.0 [facility] Comment on above: Performed By: #### C BC #### [facility] [address] [place] [address] Dr. Edil Gayle MCHC (RBC) [Mass/Vol] 33.3 g/dL Normal 29.9-35.2 [facility] Comment on above: Performed By: #### C BC #### [facility] [address] [place] [address] Dr. Edil Gayle MCV (RBC) [Entitic vol] 93.0 fL Normal 81.0-99.0 [facility] Comment on above: Performed By: #### C BC #### [facility] [address] [place] [address] [address] Edil Gayle MONO # 0.7 103/ul Normal 0.3-0.8 [facility] Comment on above: Performed By: #### C BC #### [facility] [address] [place] [address] Dr. Edil Gayle Monocytes/100 WBC (Bld) 6.9 % Normal 1.7-12.0 [facility] Comment on above: Performed By: #### C BC #### [facility] [address] [place] [address] Dr. dEil Gayle NEUT # 7.1 103/ul Critically high 1.4-6.5 [facility] Comment on above: Performed By: #### C BC #### [facility] [address] [place] [address] Dr. Edil Gayle Neutrophils/100 WBC (Bld) 66.5 % Normal 43.0-75.0 [facility] Comment on above: Performed By: #### C BC #### [facility] [address] [place] [address] Dr. Edil Gayle Platelet mean volume (Bld) [Entitic vol] 9.4 fL Critically low 9.5-13.[address] [facility] Comment on above: Performed By: #### C BC #### [facility] [address] [place] [address] Dr. Edil Gayle PLT 247 103/ul Normal 150-[address] [facility] Comment on above: Performed By: #### C BC #### [facility] [address] [place] [address] Dr. Edil Gayle RBC 4.98 106/ul Normal 4.20-5.[address] [facility] Comment on above: Performed By: #### C BC #### [facility] [address] [place] [address] Dr. Edil Gayle WBC 10.7 103/ul Normal 4.0-11.0 [facility] Comment on above: Performed By: #### C BC #### [facility] [address] [place] [address] ABD/PELV W CONon [...] by: MICHELLE HENRY Date: 2021-07-28 11:03 Normal [facility] ER URINE PROFILEon 2 Bilirubin Ql (U) Negative Normal NEGATIVE [facility] Comment on above: Performed By: #### E RUR #### [facility] [address] [place] [address] Dr. Edil Gayle Clarity (U) CLEAR Normal CLEAR [facility] Comment on above: Performed By: #### E RUR #### [facility] [address] [place] [address] Dr. Edil Gayle Color (U) YELLOW Normal YELLOW [facility] Comment on above: Performed By: #### E RUR #### [facility] [address] [place] [address] Dr. Edil Gayle ERUAHD A micrscopic examination will be performed if indicated. Normal [facility] Comment on above: Performed By: #### E RUR #### [facility] [address] [place] [address] Dr. Edil Gayle Glucose Ql (U) Negative Normal NEGATIVE [facility] Comment on above: Performed By: #### E RUR #### [facility] [address] [place] [address] Dr. Edil Gayle Hemoglobin Ql (U) Negative Normal NEGATIVE [facility] Comment on above: Performed By: #### E RUR #### [facility] [address] [place] [address] Dr. Edil Gayle Ketones Ql (U) Negative Normal NEGATIVE [facility] Comment on above: Performed By: #### E RUR #### [facility] [address] [place] [address] Dr. Edil Gayle LEUKOCYTES Negative Normal NEGATIVE [facility] Comment on above: Performed By: #### E RUR #### [facility] [address] [place] [address] Dr. Edil Gayle Nitrite Ql (U) Negative Normal NEGATIVE [facility] Comment on above: Performed By: #### E RUR #### [facility] [address] [place] [address] Dr. Edil Gayle pH (U) 6.0 [pH] Normal 5-9 [facility] Comment on above: Performed By: #### E RUR #### [facility] [address] [place] [address] Dr. Edil Gayle SPEC GRAVITY 1.030 Abnormal 1.005-<=1.02 5 [facility] Comment on above: Performed By: #### E RUR #### [facility] [address] [place] [address] Dr. Edil Gayle UA PROTEIN Negative Normal NEGATIVE/ TRACE [facility] [facility] Comment on above: Performed By: #### E RUR #### [facility] [address] [place] [address] Dr. Edil Gayle UR MICRO IND NOT INDICATED Normal The [facility] Comment on above: Performed By: #### E RUR #### [facility] [address] [place] [address] Dr. Edil Gayle Urobilinogen Qn (U) 0.2 {Tee'U}/dL Normal 0.2 - 1. 0 [facility] Comment on above: Performed By: #### E RUR #### [facility] [address] [address] [address] Edil Gayle PROF CHEM 8 (BAS METB)on Anion gap [Moles/Vol] 9.8 mmol/L Normal [facility] Comment on above: Performed By: #### F T4 #### [facility] [address] [place] [address] Dr. Edil Gayle Calcium [Mass/Vol] 8.4 mg/dL Critically low 8.5-10.1 [facility] Comment on above: Performed By: #### F T4 #### [facility] [address] [place] [address] Dr. Edil Gayle Chloride [Moles/Vol] 106 mmol/L Normal 98-107 [facility] Comment on above: Performed By: #### F T4 #### [facility] [address] [place] [address] Dr. Edil Gayle CO2 [Moles/Vol] 29.1 mmol/L Normal 21.0-32.0 [facility] Comment on above: Performed By: #### F T4 #### [facility] [address] [place] [address] Dr. Edil Gayle Creatinine [Mass/Vol] 0.78 mg/dL Normal 0.55-1.02 [facility] Comment on above: Performed By: #### F T4 #### [facility] [address] [place] [address] Dr. Edil Gayle EGFR-AF CHILEAN >60 Normal >=60 The [facility] Comment on above: Performed By: #### F T4 #### [facility] [address] [place] [address] Dr. Edil Gayle EGFR-NON AF CHILEAN >60 Normal >=60 [facility] Comment on above: Performed By: #### F T4 #### [facility] [address] [place] [address] Dr. Edil Gayle Glucose [Mass/Vol] 89 mg/dL Normal 74-106 [facility] Comment on above: Performed By: #### F T4 #### [facility] [address] [place] [address] Dr. Edil Gayle Potassium [Moles/Vol] 3.9 mmol/L Normal 3.5-5.1 [facility] Comment on above: Performed By: #### F T4 #### [facility] [address] [address] [address] Edil Gayle Sodium [Moles/Vol] 141 mmol/L Normal 136-145 [facility] Comment on above: Performed By: #### F T4 #### [facility] [address] [address] [address] Edil Gayle Urea nitrogen [Mass/Vol] 12.0 mg/dL Normal 7.0-18.0 [facility] Comment on above: Performed By: #### F T4 #### [facility] [address] [place] [address] Dr. Edil Gayle Urea nitrogen/Creatinine [Mass ratio] 15.4 mg/mg Normal [facility] Comment on above: Performed By: #### F T4 #### [facility] [address] [place] [address] Dr. Edil Gayle ANAon 11-22-2020 RAFIA PATTERN SPECKLED Normal The [facility] Comment on above: Result Comment: The [...] authority. Performed By: #### 1 0196 #### [facility] [address] [place] [address], [facility] RAFIA SCREEN 1:80 Abnormal <1:40,1:40 The [facility] Comment on above: Result Comment: Test performed using JOSE C IFA RAFIA Hep-2 Test, a pre-standardized assay designed for the qualitative and semi-quantitative detection of antinuclear antibodies. Performed By: #### 1 0196 #### [facility] [address] [place] [address], [facility] C REACTIVE PROTEINon 021 CRP [Mass/Vol] 1.9 mg/L Normal 0.0-7.0 The [facility] Comment on above: Performed By: #### 9 9744, 09093, 71472 #### [facility] [address] [facility] [place] [address], [facility] CBC W/DIFFon 11-22-2020 ABS IMM GRANS 0.0 10*3/uL Normal 0.0-0.2 The [facility] Comment on above: Performed By: #### 5 010, 18204 #### [facility] [address] [place] [address], [facility] ABS NEUTROPHILS 10.1 10*3/uL High 1.6-7.6 The [facility] Comment on above: Performed By: #### 5 102, 85098 #### [facility] [address] [facility] [address], [facility] Basophils (Bld) [#/Vol] 0.1 10*3/uL Normal 0.0-0.2 The [facility] Comment on above: Performed By: #### 5 102, 38275 #### [facility] [address] [facility] [place] [address], [facility] Basophils/100 WBC (Bld) 0.8 % Normal 0.0-1.0 The [facility] Comment on above: Performed By: #### 5 102, 64418 #### [facility] [address] [facility] [place] [address], [facility] Eosinophils (Bld) [#/Vol] 0.2 10*3/uL Normal 0.0-0.5 The [facility] Comment on above: Performed By: #### 5 102, 46129 #### [facility] [address] [place] [address], [facility] Eosinophils/100 WBC (Bld) 1.2 % Normal 0.0-6.0 The [facility] Comment on above: Performed By: #### 5 102, 76664 #### [facility] [address] [facility] Erythrocyte distribution width (RBC) [Ratio] 13.2 % Normal 11.5-15.0 The [facility] Comment on above: Performed By: #### 5 102, 15934 #### [facility] [address] [facility] [facility] [facility] Hematocrit (Bld) [Volume fraction] 47.8 % High 36.0-45.0 The [facility] Comment on above: Performed By: #### 5 102, 33012 #### [facility] [address] [facility] Hemoglobin (Bld) [Mass/Vol] 16.1 g/dL High 12.0-15.0 The [facility] Comment on above: Performed By: #### 5 102, 99478 #### [facility] [address] [facility]. [address] IMMATURE GRANS 0.3 % Normal 0.0-1.0 The [facility] Comment on above: Performed By: #### 5 102, 42773 #### [facility] [address] [facility] Lymphocytes (Bld) [#/Vol] 2.3 10*3/uL Normal 1.2-4.0 The [facility] Comment on above: Performed By: #### 5 102, 68878 #### [facility] [address] [facility] [place] [address], [facility] Lymphocytes/100 WBC (Bld) 17.1 % Low 20.0-45.0 The [facility] Comment on above: Performed By: #### 5 102, 65815 #### [facility] [address] [facility] [place] [address], [facility] MCH (RBC) [Entitic mass] 30.8 pg Normal 27.0-33.0 The [facility] Comment on above: Performed By: #### 5 102, 78311 #### [facility] [address] [facility]. [address] MCHC (RBC) [Mass/Vol] 33.7 g/dL Normal 32.0-35.0 The [facility] Comment on above: Performed By: #### 5 102, 93205 #### [facility] [address] MCV (RBC) [Entitic vol] 91.4 fL Normal 82.0-98.0 The [facility] Comment on above: Performed By: #### 5 102, 20821 #### [facility] [address] Monocytes (Bld) [#/Vol] 0.7 10*3/uL Normal 0.1-1.0 The [facility] Comment on above: Performed By: #### 5 102, 38543 #### [facility] [address] MONOS 5.0 % Normal 5.0-12.0 The [facility] Comment on above: Performed By: #### 5 102, 56377 #### [facility] [address] [facility]. [address] Neutrophils/100 WBC (Bld) 75.6 % High 40.0-72.0 The [facility] Comment on above: Performed By: #### 5 102, 44561 #### [facility] [address] Nucleated RBC/100 WBC (Bld) [Ratio] 0 % Normal 0-0 The [facility] Comment on above: Performed By: #### 5 102, 32346 #### [facility] [address] [facility]. [address] PLAT CNT 303 10*3/uL Normal 150-400 [facility] Comment on above: Performed By: #### 5 0103, 38243 #### [facility] [address] RBC (Bld) [#/Vol] 5.23 10*6/uL High 3.80-5.00 [facility] Comment on above: Performed By: #### 5 0103, 31934 #### [facility] [address] WBC (Bld) [#/Vol] 13.31 10*3/uL High 4.00-10.60 [facility] Comment on above: Performed By: #### 5 0103, 05323 #### [facility] [address] [place] [id number] 11-22-2020 CYCLIC CIT PEP 4 Units Normal 0-[address] [facility] Comment on above: Result Comment: INTE [...] be monitored and testing repeated. Performed By: [employer] [address] [place] [address] Professor Of Early Childhood Education: Olga Duval MD HAND LEFT 3 Son 11-22-2020 HAND LEFT 3 S [facility] Department of Radiology [address] [place] [address] ===== Patient Name: ARACELI FRANCOIS : 1980 Sex: F Age: Race: White Pt. Location: [facility] Patient Status: D Ordered Date: 11/22/2020 10:50:00 AM Completed Date: 11/22/2020 10:54 AM Requesting Provider: DANYA ROTHMAN Attending Provider: DANYA ROTHMAN Report Copy To: Signs & Symptoms: M25.50 Pain in unspecified joint I10 History: [place] Comments: Evaluate Exam: HAND LEFT 3 S [...] osteoarthritis. Electronically signed: Neftali Gates. Transcribed by: [email or web address], User Resident: Electronically Signed by: NEFTALI GATES @ 11/23/2020 09:30 AM Normal The [facility] Comment on above: Order Comment: Evalu ate HAND RIGHT 3 VWSon HAND RIGHT 3 S [facility] Department of Radiology [address] [place] [address] ===== Patient Name: ARACELI FRANCOIS : 1980 Sex: F Age: Race: White Pt. Location: [facility] Patient Status: D Ordered Date: [...] report. Electronically signed: Neftali Gates. Transcribed by: [email or web address], User Resident: JOSIANE LAWRENCE Electronically Signed by: NEFTALI GATES @ 11/23/2020 12:29 PM I personally read this/these film(s) with this resident Normal The [facility] Comment on above: Order Comment: Evalu ate IMMUNOGLOB BLon 11-22-2020 IgA [Mass/Vol] 410 mg/dL Normal 60-413 The [facility] Comment on above: Performed By: #### 9 9744, 27094, 05644 #### [facility] [address] [place] [address], [facility] IgG [Mass/Vol] 908 mg/dL Normal 591-1540 [facility] Comment on above: Performed By: #### 9 9744, 05324, 37732 #### [facility] [address] [place] [address], [facility] IgM [Mass/Vol] 58 mg/dL Normal 54-285 [facility] Comment on above: Performed By: #### 9 9744, 49917, 20195 #### [facility] [address] [place] [address], [facility] RHEUMATOID FACTOR SERUMon RA <20 Normal 0-20 [facility] Comment on above: Performed By: #### 9 9744, 64026, 00206 #### [facility] [address] [place] [id number], [facility] SEDIMENTATION RATEon 021 SED RATE 4 mm/hr Normal 0-20 The [facility] Comment on above: Performed By: #### 5 0103, 85994 #### [facility] [address] [place] [address], [facility] t cell subset analysison CD3 % 86.24 % Normal 65.00-90.00 The [facility] Comment on above: Order Comment: This test was developed and its performance characteristics determined by the [facility] Flow Cytometry Laboratory. It has not been cleared or approved by the U.S. Food and Drug Administration. Performed By: #### 9 0116 #### [facility] [address] CD3 ABSOLUTE 1963 cells/mm3 Normal 760-2130 The [facility] Comment on above: Order Comment: This test was developed and its performance characteristics determined by the [facility] Flow Cytometry Laboratory. It has not been cleared or approved by the U.S. Food and Drug Administration. Performed By: #### 9 0116 #### [facility] [address] CD4 % 67.10 % Normal 40.00-70.00 The [facility] Comment on above: Order Comment: This test was developed and its performance characteristics determined by the [facility] Flow Cytometry Laboratory. It has not been cleared or approved by the U.S. Food and Drug Administration. Performed By: #### 9 0116 #### [facility] [address] CD4 ABSOLUTE 1527 cells/mm3 High 430-1185 The [facility] Comment on above: Order Comment: This test was developed and its performance characteristics determined by the [facility] Flow Cytometry Laboratory. It has not been cleared or approved by the U.S. Food and Drug Administration. Performed By: #### 9 0116 #### [facility] [address] CD4:CD8 RATIO 3.79 Normal 1.00-4.00 The [facility] Comment on above: Order Comment: This test was developed and its performance characteristics determined by the [facility] Flow Cytometry Laboratory. It has not been cleared or approved by the U.S. Food and Drug Administration. Performed By: #### 9 0116 #### [facility] [address] CD8 % 17.70 % Normal 15.00-40.00 The [facility] Comment on above: Order Comment: This test was developed and its performance characteristics determined by the [facility] Flow Cytometry Laboratory. It has not been cleared or approved by the U.S. Food and Drug Administration. Performed By: #### 9 0116 #### [facility] [address] [facility] [place] [address], [facility] CD8 ABSOLUTE 403 cells/mm3 Normal 180-865 The [facility] Comment on above: Order Comment: This test was developed and its performance characteristics determined by the [facility] Flow Cytometry Laboratory. It has not been cleared or approved by the U.S. Food and Drug Administration. Performed By: #### 9 0116 #### [facility] [address] [facility]. [address] Vital Signs Date Time Vital Sign Value Performing Clinician Facility 04-25-2023 12:38-0400 Body height 162.6 cm Db Rivera MD Work Phone: [facility] 04-25-2023 12:38-0400 Body mass index (BMI) [Ratio] 42.05 kg/m2 Db Rivera MD Work Phone: [facility] 04-25-2023 12:38-0400 Body weight 111.13 kg Db Rivera MD Work Phone: [facility] 04-25-2023 12:38-0400 Diastolic blood pressure 99 mm[Hg] Db Rivera MD Work Phone: [facility] 04-25-2023 12:38-0400 Heart rate 93 /min Db Rivera MD Work Phone: [facility] 04-25-2023 12:38-0400 Systolic blood pressure 146 mm[Hg] Db Rivera MD Work Phone: [facility] 03-16-2023 10:58-0500 Body height 162.6 cm [facility] 1 [facility] 03-16-2023 10:58-0500 Body mass index (BMI) [Ratio] 42.05 kg/m2 [facility] 1 [facility] 03-16-2023 10:58-0500 Body weight 111.[address] [facility] 1 [employer] [facility] 03-01-2023 14:45-0500 Body height 162.56 cm Kisha Barkley Other [facility] Other 03-01-2023 14:45-0500 Body mass index (BMI) [Ratio] 42.05 kg/m2 Kisha Barkley Other [facility] Other 03-01-2023 14:45-0500 Body temperature 97.5 [degF] Kisha Barkley Other [facility] Other 03-01-2023 14:45-0500 Body weight 111.13 kg Kisha Barkley Other [facility] Other 03-01-2023 14:45-0500 Respiratory rate 18 /min Kisha Barkley Other [facility] Other 03-01-2023 14:45-0500 SaO2% (BldA) [Mass fraction] 99 % Kisha Barkley Other [facility] Other 10-26-2022 09:00-0400 Body height 162.56 cm Albaro Wilson Other [facility] Other 10-26-2022 09:00-0400 Body mass index (BMI) [Ratio] 43.25 kg/m2 Albaro Wilson Other [facility] Other 10-26-2022 09:00-0400 Body weight 114.31 kg Albaro Wilson Other [facility] Other 10-26-2022 09:00-0400 Diastolic blood pressure 80 mm[Hg] Albaro Wilson Other [facility] [employer] Other 10-26-2022 09:00-0400 Systolic blood pressure 122 mm[Hg] Albaro Urbinamague Other [facility] [employer] Other 09-12-2022 14:20-0400 Diastolic blood pressure 70 mm[Hg] [facility] 09-12-2022 14:20-0400 Heart rate 70 /min [facility] 09-12-2022 14:20-0400 Respiratory rate 16 /min [facility] 09-12-2022 14:20-0400 SaO2% (BldA) [Mass fraction] 97 % [facility] 09-12-2022 14:20-0400 Systolic blood pressure 131 mm[Hg] [facility] 09-12-2022 12:54-0400 Body height 162.56 cm [facility] 09-12-2022 12:54-0400 Body temperature 98.2 [degF] [facility] 09-12-2022 12:54-0400 Body weight 113.39 kg [facility] Encounters Encounter Date Encounter Type Care Provider Facility Start: 10-22-2023 End: 10-22-2023 ambulatory [facility] Start: 06-01-2023 End: 06-01-2023 ambulatory LIZZ GUTIÉRREZ [facility] Start: 04-25-2023 End: 04-25-2023 ambulatory DB RIVERA [facility] Start: 04-25-2023 End: 04-25-2023 Office outpatient visit 15 minutes Db Rivera MD Work Phone: [facility] Comment on above: 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 (Primary Dx) Start: 03-19-2023 Telephone encounter Db Rivera MD Work Phone: [facility] Start: 03-19-2023 End: 03-19-2023 Evaluation and management of inpatient DB RIVERA [facility] Start: 03-16-2023 End: 03-16-2023 ambulatory [facility] Pat Phone Call Provider 1 [facility] - Pre Admit Start: 03-16-2023 End: 03-16-2023 ambulatory SHAD SHAMMO [facility] Start: 03-12-2023 End: 03-13-2023 ambulatory LIZZ GUTIÉRREZ [facility] Start: 03-01-2023 End: 03-01-2023 ambulatory Kisha Barkley Other [facility] Other Start: 03-01-2023 Office outpatient visit 25 minutes Kisha Barkley [facility] Start: 02-06-2023 End: 02-07-2023 ambulatory DB HoughMoira RIVERA [facility] Start: 10-26-2022 End: 10-26-2022 ambulatory Albaro Wilson Other [facility] Other Start: 10-26-2022 Office outpatient visit 15 minutes Albaro Wilson [facility] Start: 09-19-2022 End: 09-19-2022 ambulatory Albaro Wilson Other [facility] Other Start: 09-19-2022 Telephone encounter [facility]o [facility] Start: 09-12-2022 End: 09-12-2022 ambulatory Siva You Facility:[facility] Start: 09-12-2022 End: 09-12-2022 Admission to same day surgery center [facility] Work Phone: Start: 09-12-2022 End: 09-12-2022 ambulatory NON STAFF [facility] Work Phone: Start: 06-30-2022 End: 02-14-2023 ambulatory Greyson Lincoln Start: 06-07-2022 ambulatory SHAD SHAMMO Facility:[facility] 1 Start: 04-21-2022 End: 04-22-2022 ambulatory SHAD SHAMMO Facility:[facility] Start: 04-03-2022 End: 04-03-2022 ambulatory SHAD SHAMMO Facility:[facility] Start: 01-31-2022 End: 02-01-2022 ambulatory QUIRINO ANDRE Facility:[facility] Start: 01-10-2022 End: 01-11-[address] OMAR GUIDRY . Facility:[facility] Start: 12-20-2021 End: 12-20-2021 ambulatory NON STAFF Facility:[facility] Start: 12-20-2021 End: 12-20-2021 ambulatory NON STAFF [facility] Work Phone: Start: 12-20-2021 End: 12-20-2021 Patient encounter procedure DO Ron Wallace Work Phone: [facility] [place] Start: 12-20-2021 End: 12-21-[address] OMAR GUIDRY . Facility:[facility] Start: 12-10-2021 End: 12-11-2021 ambulatory SHAD SHAMMO Facility:[facility] Start: 12-06-2021 End: 12-07-2021 ambulatory SHAD SHAMMO Facility:[facility] Start: 11-08-2021 End: 11-09-2021 ambulatory SHAD SHAMMO Facility:[facility] Start: 11-03-2021 Encounter for genera l adult medical examination without abnormal findings DR DOCTOR HORNER [facility] Start: 11-01-2021 End: 11-02-[address] [...] Td Vaccines (2 - Td or Tdap) [facility] Start: 03-19-2024 Tobacco Screening Tobacco Screening [facility] Start: 03-16-2024 Adult BMI Screening Adult BMI Screen ing [facility] Start: 01-02-2024 Tobacco Screening Tobacco Screening [facility] Start: 07-06-2023 Depression Screening Depression Scre ening [facility] Start: 06-01-2023 End: 06-01-2023 Patient encounter procedure 06/01/2023 10:30 AM EDT Office Visit [facility] [address] [place] [address] Lizz Gutiérrez MD [address] [place] [address] Felton Lakhwinder [facility] Start: 04-27-2023 End: 04-27-2023 Patient encounter procedure 04/27/2023 3:15 PM EDT Office Visit [facility] [address] [place] [phone] Lizz Gutiérrez MD [address] [place] [id number] Anabel Lakhwinder [facility] Start: 03-19-2023 End: 03-19-2023 Patient encounter procedure 03/19/2023 3:45 PM EST [facility] [address] [place] [address] [address] [facility] [place] [phone] Db Rivera MD [address] [place] [address] [facility] Start: 03-19-2023 End: 03-19-2023 Admission to same day surgery center 03/19/2023 9:30 AM EST - 03/19/2023 10:00 AM EST Surgery [facility] - Surgery [address] [place] [phone] Db Rivera MD [address] [place] [id number] CYSTOSCOPY WITH BLADDER IRRIGATION AND [facility] BLADDER SOLUTION [17848 (CPT )] [facility] Comment on above: CYSTOSCOPY WITH BLAD ELI IRRIGATION AND [facility] M BLADDER SOLUTION [70445 (CPT )] Start: 03-19-2023 End: 03-19-2023 Cystourethroscopy [facility] Start: 03-19-2023 Subsequent hospital visit by physician 03/19/2023 9:30 AM EST Hospital Encounter [facility] [address] [place] [id number] Db Rivera MD [address] [place] [id number] [facility] Start: 10-06-2022 Influenza vaccination Influenza Vacc ine [facility] Start: 09-12-2022 [facility] Start: 12-20-2021 MR Unspecified body region [facility] Start: 12-20-2021 MRI of head MR head/brain wo/w con [facility] Start: 1996 Adult BMI Follow Up Plan Adult BMI Follow Up Plan [facility] Start: 1978 Tobacco Counseling Tobacco Counselin ashutosh [facility] Patient Education Hiatal Hernia (DC) [facility] Work Phone: Immunizations Immunization Date Immunization Notes Care Provider Fa cility 09-28-2018 tetanus toxoid, redu moon diphtheria toxoid, and acellular pertussis vaccine, adsorbed Pmh 1 [facility] Payers Date Payer Category Payer Medicaid [employer] [facility] MEDICAID [id number] 2022-Present [address] [place] [address] [id number] 2022 Medicaid [id number] 2021 Self-pay [id number] 1978 Unknown [id number] 2.16.840.1.154384.3.579.2.593 1978 Unknown [id number] 2.16.840.1.179871.3.579.2.593 1978 Unknown [id number] 2.16.840.1.806006.3.579.2.593 1978 Unknown [id number] 2.16.840.1.066315.3.579.2.593 1978 Unknown [id number] 2.16.840.1.533278.3.579.2.593 1978 Unknown [id number] 2.16.840.1.786132.3.579.2.593 1978 Unknown [id number] 2.16.840.1.610861.3.579.2.593 1978 Unknown [id number] 2.16.840.1.865200.3.579.2.593 1978 Unknown [id number] 2.16.840.1.358084.3.579.2.593 1978 Unknown [id number] 2.16.840.1.849614.3.579.2.593 1978 Unknown [id number] 2.16.840.1.548139.3.579.2.593 1978 Unknown [id number] 2.16.840.1.833108.3.579.2.593 1978 Unknown [id number] 2.16.840.1.157577.3.579.2.593 1978 Unknown [id number] 2.16.840.1.045779.3.579.2.1286 1978 Unknown [id number] 2.16.840.1.666072.3.579.2.1286 1978 Unknown [id number] 2.16.840.1.405767.3.579.2.1286 1978 Unknown [id number] 2.16.840.1.441167.3.579.2.1286 1978 Unknown [id number] 2.16.840.1.159329.3.579.2.128 1978 Unknown [id number] 2.16.840.1.806798.3.579.2.1286 1959 Medicaid [id number] Unknown [id number] 2.16.840.1.968708.3.579.2.531 Unknown [id number] 2.16.840.1.967972.3.579.2.531 Social History Date Type Detail Facility Tobacco smoking stat [facility] Unknown if ever smoked [facility] Work Phone: Start: 1980 Sex Assigned At Female F [facility] Start: 09-12-2022 Tobacco smoking stat [facility] Smoker (finding) [facility] Start: 03-18-2020 End: 07-05-2022 Sex Assigned At [facility] Start: 06-21-2022 End: 03-19-2023 Tobacco smoking status NMIS Smokes tobacco daily [facility] History of tobacco use Cigarette Smoker P [facility] Start: 03-18-2020 End: 06-21-2022 Cigarettes smoked current (pack per day) - Reported 0.5 [facility] Start: 06-21-2022 End: 03-19-2023 Tobacco use and exposure Smokeless tobacco non-user [facility] Start: 03-16-2023 End: 04-25-2023 Alcohol intake Current non-drinker of alcohol (finding) [facility] How often to you hav e a drink containing alcohol? Never [facility] How many standard drinks containing alcohol do you have on a typical day? Patient does not drink [facility] Start: 06-21-2022 Tobacco Comment Has a patch an d down to 4 cig. Per day [facility] Start: 1980 Sex Assigned At Not on file P [facility] Medical Equipment Procedure Code Equipment Code Equipment Origin al Text Equipment Identifier Dates Graft Bn 5ml Yomi Puros Strl Lf - [id number] Start: 07-05-2022 Cover Bur Hl 14m m Lp Tab Unv Neuro 2 Thk.5mm Ns Lf - [id number] Start: 07-05-2022 Plate Bn 16mm 2 Hl Lp Unv Neuro Ii Crnmxf Ti Ns Lf 1.5mm Scr - [id number] Start: 07-05-2022 Screw Bn 4mm 1.5 mm Slf Drl Xpn Crnmxf Strl - [id number] Start: 07-05-2022 Goals Date Patient Goal [...] prescribed short 3 week script to fill [facility] 10-22-2023 Note F/U with PCP as scheduled [facility] 10-22-2023 Note Lipid abnormalities are stable, continue lipitor 40 mg daily [facility] 10-22-2023 Note Hypertension is stab le and well controlled Continue hydrochlorothiazide, losartan, norvasc [facility] 10-22-2023 Note Currently resolved [facility] 10-22-2023 Note Patient here for 1.5 year follow up hypertension. Still has pain under her right breast, where the bone is . Denies SOB and palpitations. Says she hasn't been lightheaded/dizzy since her aneurysm surgery in June 2022. Review of Systems Musculoskeletal: Positive for arthritis, back pain and joint pain. Neurological: Positive for headaches. All other systems reviewed and are negative. [facility] 10-22-2023 Note Pt is here for a eig ht month follow up. [facility] 10-22-2023 Note [facility] CARDIOLOGY PROGR ESS NOTE HPI: Araceli Francois is a 43 y.o. female here [...] but denied syncope. States that Neuro-surg at [facility] is planning surgery for aneurysm. Previous [...] 40 mg by mouth at bedtime. omega 2-mpj-ont-fish oil 300-1,000 mg capsule,delayed release(DR/EC) omeprazole (PriLOSEC) [...] 91 91 91 (more content not included)... [facility] 04-25-2023 Evaluation + Plan note Associated Problem(s): Mixed stress and urge urinary incontinence No constipation no dry mouth. Will start her on 5 mg VESIcare. Refer her to Dr. Engle. Certainly made need some urodynamic study as well. Deferred to his evaluation and management. [employer] 04-25-2023 Miscellaneous Notes Associated Problem(s): Mixed stress and urge urinary incontinence No constipation no dry mouth. Will start her on 5 mg VESIcare. Refer her to Dr. Engle. Certainly made need some urodynamic study as well. Deferred to his evaluation and management. [facility] History of Presen t illness Narrative Images from the original note were not included. [address] [place] [address] A [facility] [id number] Patient: Araceli Francois Date of : 1980 [...] pain Acid reflux Arthritis Asthma Bleeding disorder ([facility]) Factor V(clotting disorder) per patient Cerebral aneurysm Clotting disorder ([facility]) Dental disease Upper dentures, lower partial Depression Dysphagia Endometriosis Factor 5 Leiden mutation, heterozygous ([facility]) Fibromyalgia, primary GERD (gastroesophageal reflux disease) Without esophagitis Hyperlipidemia Hypertension Injury of back Irregular menstruation Leaking of urine Memory loss Menopause Migraine headache Obesity Painful menstruation Pelvic pain Pneumonia Rheumatoid arthritis ([facility]) Seizures ([facility]) 1998 During Septoplasty surgery per chart from [facility]. Sinusitis, chronic Wears partial dentures Past Surgical History: Procedure Laterality Date ADENOIDECTOMY BLADDER SUSPENSION CRANIOTOMY REPAIR ANEURYSM(MCA ANEURYSM CLIPPING) Right 07/05/2022 Performed by Eric Jimenez MD at [facility] CYSTOSCOPY WITH BLADDER IRRIGATION AND [facility] BLADDER SOLUTION N/A 03/19/2023 Performed by Db Rivera MD at [facility] Diagnostic cerebral angiogram N/A 07/06/2022 Performed by Yi Bautista MD at [facility] CARDIAC CATH LABS Diagnostic cerebral angiogram N/A 01/02/2022 Performed by Yi Bautista MD at [facility] CARDIAC CATH LABS EGD with bx N/A 07/26/2016 Performed by Db Acevedo MD at [facility] ENDOSCOPY ESSURE TUBAL LIGATION FOOT SURGERY Right HYSTERECTOMY 2010 LAPAROSCOPIC CHOLECYSTECTOMY N/A 04/09/2019 Performed by Geovany Bain MD at [facility] NASAL SEPTOPLASTY W/ TURBINOPLASTY OOPHORECTOMY [...] for opioid reversal. 1 each 0 omega 1-gjm-xaq-fish oil (FISH OIL) 300-1,000 mg capsule,delayed release(DR/EC) [...] day. Plan: Renal bladder ultrasound. Cystoscopy urodynamics [facility] bladder solution. Current Assessment & Plan No [...] for your understanding. documented in this encounter [facility] 03-19-2023 Miscellaneous Notes Return the office about 1 month. Please cancel the patient's appointment today for 3:45. documented in this encounter [facility] 03-19-2023 Telephone encounter Note Return the office about 1 month. Please cancel the patient's appointment today for 3:45. [employer] Work Phone: 03-16-2023 Nurse Note Preoperative Education Checklist- General Surgery date: 03/19/23 Surgery time: 930a Arrival time: 830a 1. Bring a photo ID and your insurance card with you the day of surgery. You will check in at the main lobby of the [facility]- registration desk is straight ahead as soon as you walk in. Tell them you are here for surgery. 2. If you have a Living Will/Durable Power of Tile Layer Helper for Health Care that is not on [...] after you have bathed. 5. NO nail kosovan/acrylic on at least one finger. If you are having a hand, wrist or foot surgery then all nail kosovan and artificial/acrylic nails must be removed from [...] please call the Preadmission Testing office at [phone], Mon.-Fri. 7 a.m.-3 p.m. Leave a voicemail [...] taking 0 days prior to procedure omega 0-rak-exx-fish oil (FISH OIL) 300-1,000 mg capsule,delayed release(DR/EC) Stop taking 0 days prior to procedure omeprazole (PriLOSEC) 40 mg capsule Take morning of procedure rimegepant (NURTEC ODT) 75 mg tablet,disintegrating Stop taking 0 days prior to procedure tiZANidine (ZANAFLEX) 2 mg tablet Stop taking 0 days prior to procedure [facility] 03-16-2023 Miscellaneous Notes Preoperative Education Checklist- General Surgery date: 03/19/23 Surgery time: 930a Arrival time: 830a 1. Bring a photo ID and your insurance card with you the day of surgery. You will check in at the main lobby of the [facility]- registration desk is straight ahead as soon as you walk in. Tell them you are here for surgery. 2. If you have a Living Will/Durable Power of Tile Layer Helper for Health Care that is not on [...] after you have bathed. 5. NO nail kosovan/acrylic on at least one finger. If you are having a hand, wrist or foot surgery then all nail kosovan and artificial/acrylic nails must be removed from [...] please call the Preadmission Testing office at [phone], Mon.-Fri. 7 a.m.-3 p.m. Leave a voicemail [...] taking 0 days prior to procedure omega 9-zzu-dib-fish oil (FISH OIL) 300-1,000 mg capsule,delayed release(DR/EC) Stop taking 0 days prior to procedure omeprazole (PriLOSEC) 40 mg capsule Take morning of procedure rimegepant (NURTEC ODT) 75 mg tablet,disintegrating Stop taking 0 days prior to procedure tiZANidine (ZANAFLEX) 2 mg tablet Stop taking 0 days prior to procedure documented in this encounter [facility] 03-01-2023 Evaluation note Encounter Date Diagnosis [...] (suspected) exposure to covid-19 (ICD-10 - Z20.822) [facility] Other 09-21-2023 Evaluation note* Encounter Date Diagnosis Assessment Notes Treatment Notes Treatment Clinical Notes Oct, GERD (gastroesophageal reflux disease) (ICD-10 - K21.9) Patient reports break through and she will in crease omeprazole 40 mg to BID RTO 6 months Oct, Hiatal hernia (ICD-10 - K44.9) Oct, Schatzki's ring (ICD-10 - K22.2) [facility] Other [facility] NoteCARDIAC STRESS TEST Requesting Physician: Mariel Andre [...] to be dictated by Radiology team separately.[id number] NoteCONSULTATION CONSULTATION DATE: 01/10/2022 HISTORY OF PRESENT [...] is being seen by Dr. Bautista at [place]. The patient is under the care of RAFIA with regards to her migraines. The patient is to have significant workups performed including cardiac. The patient also is to see clicker operator, retina specialist. As such, given the patient's [...] again stress the importance of tobacco cessation.[facility] 12-20-2021 NoteCONSULTATION CONSULTATION DATE: 12/20/2021 CHIEF COMPLAINT: Chronic low back pain, left lower extremity pain. HISTORY OF PRESENT ILLNESS: This is a 41-year-old female who was referred to us by Shad Prieto, nurse practitioner, with [facility]. The patient states she has [...] The patient is being seen by a time buyer on 02/16/2022, neuropsychiatrist in April of 2022, and she is to [place] [facility] on 01/10/2022. As such, the patient's [...] limited at this point. CC: Shad Prieto, RAMANDEEPParkview Health Bryan HospitalEvaluation noteNo assessment information availableKettering Health Miamisburg Work Phone: Evaluation noteNo InformationNort InHomeVest Other Evaluation note* Diagnosis Mixed stress and urge urinary incontinence- Primary Mixed incontinence urge and stress (male)(female) documented in this encounter [facility] Author Siva You [facility] September 12, 2022 1:37pm Note Date/Time September 12, 2022 1:3 7pm [facility] ENTER [address] [place] [address] Gastroenterology H&P Signed Patient: Araceli Francois MR#: [id number] : 1980 Acct:[id number] Age/Sex: 42 / F Adm Date: 3 Loc: Room: Type: [facility] Attending Dr: Siva You MD Copies [...] MD 09/12/221335 Signed By: <Electronically signed by Siva You MD> 09/12/22 0560 [facility] Work Phone: History general Narrative - Reported* [...] Surgical History craniotomy Hospitalization History see above [facility] Other Hospital Discharge instructions Additional Instructions DISCHARGE [...] problems. -Follow up with PCP. -Office number [phone].[facility] Work Phone: InstructionsNot on filedocumented in this encounter [facility] HospitalDigitalScirocco SystemInstructionsNot on filedocumented in this encounter [facility] Summary Purpose Family History No Family [...] section and content) DATE CREATED AUTHOR 08/06/2021 [facility] DATE CREATED AUTHOR AUTHOR'S ORGANIZ ATION 06/08/2022 [facility] DATE CREATED AUTHOR AUTHOR'S ORGANIZ ATION 09/18/2022 [facility] DATE CREATED AUTHOR AUTHOR'S ORGANIZ ATION 02/16/2023 [place] DATE CREATED AUTHOR AUTHOR'S ORGANIZ ATION 04/26/2023 [facility] DATE CREATED AUTHOR AUTHOR'S ORGANIZ ATION 06/03/2023 [facility] DATE CREATED AUTHOR AUTHOR'S ORGANIZ ATION 10/23/2023 [facility] Care Teams (unrecognized sec tion and content) Team Status: Inactive Member Role Status Dates Ron Wallace DO Attending Provider Active NON STAFF Primary Care Provider Active Team Status: Active Member Role Status Dates NON STAFF Primary Care Provider Active Team Status: Inactive Member Role Status Dates NON STAFF Primary Care Provider Active Siva You MD Attending Provider Active Milking Machine Mechanic Relationship Specialty Start Date End Date Shad Prieto APRN-CNP [address] [place] [address] PCP - General Primary Care 12/06/21 Milking Machine Mechanic Relationship Specialty Start Date End Date Shad Prieto APRN-CNP [address] [place] [address] PCP - General Primary Care 12/06/21 Milking Machine Mechanic Relationship Specialty Start Date End Date Shad Prieto APRN-CNP [address] [place] [address] PCP - General Primary Care 12/06/21 Goals [...] BE BASED ON THE PRIMARY CLINICAL RECORDS. [employer] provides no warranty or guarantee of the accuracy or completeness of information in this document.
--- NOTE | 2023-11-15 11:11 | MM_ITS ---
Patient Name: ARACELI FRANCOIS MR#: [id number] : 1980 Exam Date: 11/15/2023 Ordering Doctor: Non-Staff Physician RADIOLOGY REPORT PROCEDURE: MM TOMOSYNTHESIS SCREENING BI COMPARISON: MM TOMOSYNTHESIS SCREENING BI, 11/13/2022. MG MAMM SCREEN 3D TISHA CAD, 11/08/2021. MG MAMM SCREEN 3D TISHA CAD, 07/19/2020. INDICATIONS: Screening mammogram Calculator Name NCI Breast Cancer Risk Assessment Tool 5 Year Breast Cancer Risk 0.50% Lifetime Breast Cancer Risk 6.40% Personal Breast Cancer No Personal Ovarian Cancer No Treatments None Family Cancers None LOCATION: [facility] BREAST COMPOSITION: There are scattered areas of fibroglandular density. FINDINGS: DIAGNOSTIC CATEGORY 1--NEGATIVE. RIGHT BREAST: No significant suspicious finding. No significant change has occurred. LEFT BREAST: No significant suspicious finding. No significant change has occurred. RECOMMENDATIONS: ROUTINE MAMMOGRAM AND CLINICAL EVALUATION IN 12 MONTHS. PLEASE NOTE: A NORMAL MAMMOGRAM DOES NOT EXCLUDE THE POSSIBILITY OF BREAST CANCER. A CLINICALLY SUSPICIOUS PALPABLE LUMP SHOULD BE BIOPSIED. Dictated by: Chidi Daily M.D. on 11/15/2023 at 15:39 Approved by: Chidi Daily M.D. on 11/15/2023 at 15:41
--- OUTSIDE RECORDS SUMMARY | 2023-11-15 11:17 | XMS_ITS | CCD ---
Author Organization [facility] Care Team Providers Care Solar Panel Installer Name Role Phone DO Ron Wallace Attending [...] Primary Care Unavailable IRAM ROTH Consulting Unavailable IARM ROTH Attending Unavailable MISC, DR ALVAREZ Primary Care Unavailable IRAM ROTH Admitting Unavailable ELAINE, MICHELLE Consulting Unavailable PAY ., DR MADERA Consulting Unavailable PAY ., DR MADERA Attending Unavailable MISC, DR ALVAREZ Primary Care Unavailable PAY ., DR MADERA Admitting Unavailable SHAMMO, SHAD Admitting Unavailable SHAMMO, SHAD Attending Unavailable SHAMMO, SHAD Primary Care Unavailable JES, LASHAUN Attending Unavailable SHAMMO, SHAD Primary Care Unavailable JES, LASHAUN Admitting Unavailable WEST, DR MARCE Marion Consulting Unavailable JES, LASHAUN Consulting Unavailable SHAMMO, SHAD Consulting Unavailable SHAMMO, [...] Primary Care Unavailable Kisha Barkley Unavailable Shammo FURNITURE DUSTER-GYROSCOPE REPAIRER, Shad Primary Care Provider [phone] DB RIVERA Attending Unavailable SHAMMO, SHAD Referring [...] Attending Unavailable SHAMMO, SHAD Primary Care Unavailable LASHAUN ANDRE Attending Unavailable Allergies Allergy Classification Reported Allergen(s) Allergy Type Date of Onset Reaction(s) Facility (2 sources) DULoxetine Drug Allergy 12-21-19 [facility] Repository (5 sources) Leucine; Translations: [NICKEL] Drug Allergy 08-05-19 19 [facility] (4 sources) Penicillin Drug Allergy 05-28-19 21 Unknown [facility] (11 sources) DULoxetine; Translations: [duloxetine] Drug Allergy 12-29-19 22 [facility] (12 sources) Naproxen; Translations: [naproxen] Drug Allergy 06-09-19 17 Hives [facility] (9 sources) Penicillins; Translations: [Penicillins] Allergy to substance 03-20-19 17 Shortness Of Breath, Rash [facility] (1 source) Unable to Assess Drug allergy (disorder) 12-21-19 [facility] Repository (3 sources) penicillAMINE Drug Allergy anaphylaxis [facility] Other (4 sources) nickel Drug Allergy 08-05-19 anaphylaxis [facility] (1 source) Bee pollen; Translations: [BEE POLLEN] Propensity to adverse reactions to drug (disorder) 01-12-20 [facility] Repository Medications Current Medications Medication Drug Class(es) [...] 0 10/17/2021 Active Tylenol prn Acti ve [id number] actuat albuterol 0.09 mg/actuat metered dose [...] Start: 12-05-2021 take 2 tablets by mo [facility] once daily losartan (COZAAR) 50 [...] reversal. 1 each 0 07/07/2022 Active omega 0-rtq-nxg-fish oil (FISH OIL) 300-1,000 mg capsule,delayed release(DR/EC) (3 sources) Start: 05-22-2022 omega 5-jhj-ypl-fish oil (FISH OIL) 300-1,000 mg capsule,delayed release(DR/EC) Take 1 capsule by mouth in the morning. 0 05/22/2022 Active [place]-3 Fatty Acids-Fish Oil (1 source) Start: 09-12-2022 take 1 capsule by mouth once daily [place]-3 Fatty Acids-Fish Oil Active 1 CAP PO [...] Test Name Value Interpretation Reference Range Facility 36on 11-05-2023 36 Concerning cholester ol levels ---- Message ----- From: Lashaun Andre NP Sent: 10/30/2023 11:21 AM EDT To: Kayla Crouch MA Subject: RE: Scan So let her know her cholesterol levels are very good, much better than last year with lipitor Normal [facility] 37on 10-22-2023 37 Start taking hydrochlorothiazide daily in the morning for blood pressure Please have blood drawn next week to check kidney function and electrolytes and cholesterol level- so you must be fasting for labs Normal [facility] Office Visiton 10-22-2023 Follow-up visit [id number] Jt Francois 1980 F Date Provider Department Center 10/22/2023 120-LASHAUN ANDRE CARD [facility] Family History Problem Relation Age of Onset Heart attack Father Heart attack Paternal Grandfather Stroke Paternal Grandfather Family Status - Relation Status Age at Father Paternal Grandfather Level of Service:11895 [place] OFFICE/OUTPATIENT ESTABLISHED LOW MDM 20 MIN Normal [facility] CBC AND AUTO DIFFon 03-12-19 24 ABSOLUTE BASOPHIL 0.1 X10E9/L Normal 0.0-0.2 [facility] Comment on above: Performed By: #### C BCA, CMP #### [facility] ([id number]) [address], [address] [place] [address] ABSOLUTE NEUTROPHIL 5.8 X10E9/L Normal 1.5-6.6 [facility] Comment on above: Performed By: #### C BCA, CMP #### [facility] ([id number]) [address], [address] [place] [address] Basophils/100 WBC (Bld) 1.0 % Normal [facility] Comment on above: Performed By: #### C BCA, CMP #### [facility] ([id number]) [address], [address] [place] [address] Eosinophils (Bld) [#/Vol] 0.2 10*3/uL Normal 0.0-0.4 [facility] Comment on above: Performed By: #### C MARIAM, CMP #### [facility] ([id number]) [address], [address] [place] [address] Eosinophils/100 WBC (Bld) 2.3 % Normal [facility] Comment on above: Performed By: #### C MARIAM, CMP #### [facility] ([id number]) [address], [address] [place] [address] Erythrocyte distribution width (RBC) [Ratio] 14.3 % Normal 11.5-15.0 [facility] Comment on above: Performed By: #### C MARIAM, CMP #### [facility] ([id number]) [address], [address] [place] [address] Hematocrit (Bld) [Volume fraction] 42.2 % Normal 35-47 [facility] Comment on above: Performed By: #### C MARIAM, CMP #### [facility] ([id number]) [address], [address] [place] [address] Hemoglobin (Bld) [Mass/Vol] 14.4 g/dL Normal 11.7-15.5 [facility] Comment on above: Performed By: #### C BCA, CMP #### [facility] ([id number]) [address], [address] [place] [address] Lymphocytes (Bld) [#/Vol] 2.5 10*3/uL Normal 1.0-3.5 [facility] Comment on above: Performed By: #### C MARIAM, CMP #### [facility] ([id number]) [address], [address] [place] [address] Lymphocytes/100 WBC (Bld) 27.1 % Normal [facility] Comment on above: Performed By: #### C MARIAM, CMP #### [facility] ([id number]) [address], [address] [place] [address] MCH (RBC) [Entitic mass] 30.0 pg Normal 27-34 [facility] Comment on above: Performed By: #### C MARIAM, CMP #### [facility] ([id number]) [address], [address] [place] [address] MCHC (RBC) [Mass/Vol] 34.1 g/dL Normal 32-36 [facility] Comment on above: Performed By: #### C MARIAM, CMP #### [facility] ([id number]) [address], [address] [place] [address] MCV (RBC) [Entitic vol] 88 fL Normal 80-100 [facility] Comment on above: Performed By: #### C MARIAM, CMP #### [facility] ([id number]) [address], [address] [place] [address] Monocytes (Bld) [#/Vol] 0.6 10*3/uL Normal 0-0.9 [facility] Comment on above: Performed By: #### C MARIAM, CMP #### [facility] ([id number]) [address], [address] [place] [address] Monocytes/100 WBC (Bld) 6.5 % Normal [facility] Comment on above: Performed By: #### C BCA, CMP #### [facility] ([id number]) [address], [address] [place] [address] Neutrophils/100 WBC (Bld) 63.1 % Normal [facility] Comment on above: Performed By: #### C BCA, CMP #### [facility] ([id number]) [address], [address] [place] [address] Platelet mean volume (Bld) [Entitic vol] 8.2 fL Normal 7-12 [facility] Comment on above: Performed By: #### C BCA, CMP #### [facility] ([id number]) [address], [address] [place] [address] Platelets (Bld) [#/Vol] 296 10*3/uL Normal 150-450 [facility] Comment on above: Performed By: #### C BCA, CMP #### [facility] ([id number]) [address], [address] [place] [address] RBC COUNT 4.80 X10E12/L Normal 3.80-5.20 [facility] Comment on above: Performed By: #### C BCA, CMP #### [facility] ([id number]) [address] [place] [address] WBC (Bld) [#/Vol] 9.1 10*3/uL Normal 4.0-11.0 [facility] Comment on above: Performed By: #### C BCA, CMP #### [facility] ([id number]) [address] [place] [address] COMPREHENSIVE METABOLIC PANE Young 03-12-2023 Albumin [Mass/Vol] 3.7 g/dL Normal 3.2-5.3 [facility] Comment on above: Performed By: #### C BCA, CMP #### [facility] ([id number]) [address], [address] [place] [address] ALP [Catalytic activity/Vol] 103 U/L Normal 39-130 [facility] Comment on above: Performed By: #### C BCA, CMP #### [facility] ([id number]) [address] [place] [address] ALT [Catalytic activity/Vol] 12 U/L Normal 0-31 [facility] Comment on above: Performed By: #### C BCA, CMP #### [facility] ([id number]) [address], [address] [place] [address] Anion gap [Moles/Vol] 7 mmol/L Normal 5-15 [facility] Comment on above: Performed By: #### C BCA, CMP #### [facility] ([id number]) [address] [place] [address] AST [Catalytic activity/Vol] 13 U/L Normal 0-41 [facility] Comment on above: Performed By: #### C BCA, CMP #### [facility] ([id number]) [address], [address] [place] [address] Bilirubin [Mass/Vol] 0.8 mg/dL Normal 0.3-1.2 [facility] Comment on above: Performed By: #### C BCA, CMP #### [facility] ([id number]) [address], [address] [place] [address] Calcium [Mass/Vol] 8.7 mg/dL Normal 8.5-10.5 [facility] Comment on above: Performed By: #### C BCA, CMP #### [facility] ([id number]) [address], [address] [place] [address] Chloride [Moles/Vol] 107 mmol/L Normal 98-109 [facility] Comment on above: Performed By: #### C BCA, CMP #### [facility] ([id number]) [address], [address] [place] [address] CO2 [Moles/Vol] 30 mmol/L Normal 22-32 [facility] Comment on above: Performed By: #### C BCA, CMP #### [facility] ([id number]) [address] [address] [place] [address] Creatinine [Mass/Vol] 0.73 mg/dL Normal 0.40-1.00 [facility] Comment on above: Result Comment: METH OD TRACEABLE TO IDMS STANDARD Performed By: #### C BCA, CMP #### [facility] ([id number]) [address], [address] [place] [address] eGFR (CKD-EPI) NON-RACE DEPENDENT >90 Normal >59 [facility] Comment on above: Result Comment: Reported eGFR is based on the CKD-EPI 2020 equation that does not use a race coefficient. Performed By: #### C BCA, CMP #### [facility] ([id number]) [address] [address] [facility] [place] [address] Glucose [Mass/Vol] 92 mg/dL Normal 65-99 [facility] Comment on above: Performed By: #### C BCA, CMP #### [facility] ([id number]) [address] [address] [place] [address] Potassium [Moles/Vol] 3.9 mmol/L Normal 3.5-5.0 [facility] Comment on above: Performed By: #### C BCA, CMP #### [facility] ([id number]) [address] [address] [place] [address] Protein [Mass/Vol] 6.4 g/dL Normal 6.0-8.0 [facility] Comment on above: Performed By: #### C BCA, CMP #### [facility] ([id number]) [address] [address] [place] [address] Sodium [Moles/Vol] 144 mmol/L Normal 134-146 [facility] Comment on above: Performed By: #### C BCA, CMP #### [facility] ([id number]) [address] [place] [address] Urea nitrogen [Mass/Vol] 9 mg/dL Normal 5-23 [facility] Comment on above: Performed By: #### C BCA, CMP #### [facility] ([id number]) [address] [place] [address] COVID + FLU Quick Testingon 03-01-2023 SARS-CoV-2 (COVID-19) RNA SARAH+probe Ql (Unsp spec) Negative [employer] [facility] [employer] Other COVID + FLU Quick Testing Negative [facility] Other CT ABDOMEN W WO CONTon 02-06 [...] Clarke MD on 02/06/2023 4:11 PM Normal [facility] Young 09-12-2022 L --- Specimen: [id number] Received: 09/12/22 Status: KASSIDY Leslee Num: [id number] Spec Type: Surgical Subm Dr: Siva You MD Tissues: A Esophagus Biopsy (ESOPHAGUS BX) Procedures: HE/2, Gross/Micro L4 Age/ Patient Sex Location Account Attending Physician Araceli Francois 42/F [id number] Siva You MD SPEC NUM: [id number] RECD: 09/12/22 STATUS: KASSIDY CAMILO NUM: [id number] SHANNON: 09/12/22- DR: Siva You MD ENTERED: 09/12/22 [facility] DR: SPEC TYPE: Surgical DEPT: S ORDERED: [...] The microscopic examination confirms the diagnosis. Specimen: [id number] Received: 09/12/22 Status: KASSIDY Camilo Num: [id number] Spec Type: Surgical Subm Dr: Siva You MD Tissues: A Esophagus Biopsy (ESOPHAGUS BX) Procedures: HE/2, Gross/Micro L4 Patient: Araceli Francois [id number] (Continued) Specimen: [id number] Received: 09/12/22 (Continued) Signed (signature on file) Rory Jade MD 09/14/22 1155 Specimen: [id number] Received: 09/12/22 Status: RANDEEManjinder Camilo Num: [id number] Spec Type: Surgical Subm Dr: Siva You MD Tissues: A Esophagus Biopsy (ESOPHAGUS BX) Procedures: [place] ESQUEDA/Eve L4 Patient: Araceli Francois [id number] (Continued) Specimen: [id number] Received: 09/12/22 (Continued) CPT Codes 72026 Specimen: [id number] Received: 09/12/22 Status: KASSIDY Leslee Num: [id number] Spec Type: Surgical Subm Dr: Siva You MD Tissues: A Esophagus Biopsy (ESOPHAGUS BX) Procedures: [place]/Eve L4 Patient: Araceli Francois [id number] (Continued) Signed (signature on file) Rory Jade MD 09/14/22 1155 Normal [facility] LIPID PROFILEon 04-21-2022 CHOL-HDL RATIO NORM SEE BELOW Normal [facility] Comment on above: Result Comment: 3.3 - 4.4 LOW RISK 4.4 - 7.1 AVERAGE RISK 7.1 - 11.0 MODERATE RISK >11.0 HIGH RISK Performed By: #### L IPID, CMP #### [facility] [address] [address] [address] Edil Gayle Cholesterol [Mass/Vol] 247 mg/dL Critically high <=200 [facility] Comment on above: Performed By: #### L IPID, CMP #### [facility] [address] [address] [address] Edil Gayle Cholesterol in HDL [Mass/Vol] 46 mg/dL Normal 40-60 [facility] Comment on above: Performed By: #### L IPID, CMP #### [facility] [address] [address] [address] Edil Gayle Cholesterol in LDL [Mass/Vol] 180.6 mg/dL Normal [facility] Comment on above: Performed By: #### L IPID, CMP #### [facility] [address] [address] [address] Edil Gayle Cholesterol.total/C holesterol in HDL [Mass ratio] 5.4 {ratio} Normal [facility] Comment on above: Performed By: #### L IPID, CMP #### [facility] [address] [address] [address] Edil Gayle HDL NORMAL > or = 60 mg/dl - LO W CARDIOVASCULAR RISK <40 mg/dl - HIGH CARDIOVASCULAR RISK Normal [facility] Comment on above: Performed By: #### L IPID, CMP #### [facility] [address] [address] [address] Edil Gayle LDL CALC NORMAL SEE BELOW Normal [facility] Comment on above: Result Comment: <100 mg/dl OPTIMAL 100 - 129 mg/dl NEAR OR ABOVE OPTIMAL 130 - 159 mg/dl BORDERLINE HIGH 160 - 189 mg/dl HIGH >190 mg/dl VERY HIGH Performed By: #### L IPID, CMP #### [facility] [address] [address] [address] Edil Gayle Triglyceride [Mass/Vol] 102 mg/dL Normal <=150 [facility] Comment on above: Performed By: #### L IPID, CMP #### [facility] [address] [address] [address] Edil Gayle VLDL CALC 20.4 mg/dL Normal [facility] Comment on above: Performed By: #### L IPID, CMP #### [facility] [address] [place] [address] Dr. Edil Gayle PROF 14(COMP METB)on 023 Albumin [Mass/Vol] 3.4 g/dL Normal 3.4-5.0 [facility] Comment on above: Performed By: #### L IPID, CMP #### [facility] [address] [place] [address] Dr. Edil Gayle Albumin/Globulin [Mass ratio] 0.9 {ratio} Normal [facility] Comment on above: Performed By: #### L IPID, CMP #### [facility] [address] [place] [address] Dr. Edil Gayle ALP [Catalytic activity/Vol] 117 U/L Critically high 46-116 [facility] Comment on above: Performed By: #### L IPID, CMP #### [facility] [address] [place] [address] Dr. Edil Gayle ALT [Catalytic activity/Vol] 25 U/L Normal 14-59 [facility] Comment on above: Performed By: #### L IPID, CMP #### [facility] [address] [place] [address] Dr. Edil Gayle Anion gap [Moles/Vol] 11.5 mmol/L Normal [facility] Comment on above: Performed By: #### L IPID, CMP #### [facility] [address] [address] [address] Edil Gayle AST [Catalytic activity/Vol] 16 U/L Normal 15-37 [facility] Comment on above: Performed By: #### L IPID, CMP #### [facility] [address] [address] [address] Edil Gayle Bilirubin [Mass/Vol] 0.4 mg/dL Normal 0.2-1.0 [facility] Comment on above: Performed By: #### L IPID, CMP #### [facility] [address] [address] [address] Edil Gayle Calcium [Mass/Vol] 8.9 mg/dL Normal 8.5-10.1 [facility] Comment on above: Performed By: #### L IPID, CMP #### [facility] [address] [place] [address] Dr. Edil Gayle Chloride [Moles/Vol] 106 mmol/L Normal 98-107 [facility] Comment on above: Performed By: #### L IPID, CMP #### [facility] [address] [place] [address] Dr. Edil Gayle CO2 [Moles/Vol] 29.8 mmol/L Normal 21.0-32.[address] [facility] Comment on above: Performed By: #### L IPID, CMP #### [facility] [address] [place] [address] Dr. Edil Gayle Creatinine [Mass/Vol] 0.58 mg/dL Normal 0.55-1.02 [facility] Comment on above: Performed By: #### L IPID, CMP #### [facility] [address] [place] [address] Dr. Edil Gayle EGFR-AF OMANI >60 Normal >=60 [facility] Comment on above: Performed By: #### L IPID, CMP #### [facility] [address] [place] [address] Dr. Edil Gayle EGFR-NON AF OMANI >60 Normal >=60 [facility] Comment on above: Performed By: #### L IPID, CMP #### [facility] [address] [address] [address] Edil Gayle Globulin (S) [Mass/Vol] 3.6 g/dL Normal [facility] Comment on above: Performed By: #### L IPID, CMP #### [facility] [address] [address] [address] Edil Gayle Glucose [Mass/Vol] 103 mg/dL Normal 74-[address] [facility] Comment on above: Performed By: #### L IPID, CMP #### [facility] [address] [place] [address] Dr. Edil Gayle Potassium [Moles/Vol] 4.3 mmol/L Normal 3.5-5.1 [facility] Comment on above: Performed By: #### L IPID, CMP #### [facility] [address] [place] [address] Dr. Edil Gayle Protein [Mass/Vol] 7.0 g/dL Normal 6.4-8.[address] [facility] Comment on above: Performed By: #### L IPID, CMP #### [facility] [address] [place] [address] Dr. Edil Gayle Sodium [Moles/Vol] 143 mmol/L Normal 136-145 [facility] Comment on above: Performed By: #### L IPID, CMP #### [facility] [address] [place] [address] Dr. Edil Gayle Urea nitrogen [Mass/Vol] 12.0 mg/dL Normal 7.0-18.0 [facility] Comment on above: Performed By: #### L IPID, CMP #### [facility] [address] [place] [address] Dr. Edil Gayle Urea nitrogen/Creatinine [Mass ratio] 20.7 mg/mg Normal [facility] Comment on above: Performed By: #### L IPID, CMP #### [facility] [address] [place] [address] Dr. Edil Gayle CULTURE THROATon 04-03-2022 CULTURE THROAT Culture Observations : NORMAL RESPIRATORY JAYLEEN. Normal [facility] Comment on above: Performed By: #### F T4 #### [facility] [address] [place] [address] Dr. Edil Gayle RESPIRATORY PANEL PLUSon Adenovirus Not detected Normal NOT DETECTED [facility] Comment on above: Performed By: #### F T4 #### [facility] [address] [place] [address] Dr. Edil Monte. Parapertusis Not detected Normal NOT DETECTED [facility] Comment on above: Performed By: #### F T4 #### [facility] [address] [place] [address] Dr. Edil Monte. Pertussis Not detected Normal NOT DETECTED [facility] Comment on above: Performed By: #### F T4 #### [facility] [address] [place] [address] Dr. Edil Gayle Chlamydia Pneumoniae Not detected Normal NOT DETECTED [facility] Comment on above: Performed By: #### F T4 #### [facility] [address] [place] [address] Dr. Edil Gayle Coronavirus 229E Not detected Normal NOT DETECTED [facility] Comment on above: Performed By: #### F T4 #### [facility] [address] [place] [address] Dr. Edil Gayle Coronavirus HKU1 Not detected Normal NOT DETECTED [facility] Comment on above: Performed By: #### F T4 #### [facility] [address] [place] [address] Dr. Edil Gayle Coronavirus NL63 Not detected Normal NOT DETECTED [facility] Comment on above: Performed By: #### F T4 #### [facility] [address] [place] [address] Dr. Edil Gayle Coronavirus OC43 Not detected Normal NOT DETECTED [facility] Comment on above: Performed By: #### F T4 #### [facility] [address] [place] [address] Dr. Edil Gayle Influenza A H1 Not detected Normal NOT DETECTED [facility] Comment on above: Performed By: #### F T4 #### [facility] [address] [place], [place] [id number] Dr. Edil Gayle Influenza A H1 2009 Not detected Normal NOT DETECTED [facility] Comment on above: Performed By: #### F T4 #### [facility] [address] [place] [address] Dr. Edil Gayle Influenza A H3 Not detected Normal NOT DETECTED [facility] [facility] Comment on above: Performed By: #### F T4 #### [facility] [address] [place] [address] Dr. Edil Gayle Influenza B Not detected Normal NOT DETECTED [facility] Comment on above: Performed By: #### F T4 #### [facility] [address] [place] [address] Dr. Edil Gayle Metapneumovirus Not detected Normal NOT DETECTED [facility] Comment on above: Performed By: #### F T4 #### [facility] [address] [place] [address] Dr. Edil Gayle Mycoplas. Pneumoniae Not detected Normal NOT DETECTED [facility] Comment on above: Performed By: #### F T4 #### [facility] [address] [place] [address] Dr. Edli Gayle Parainfluenza 1 Not detected Normal NOT DETECTED [facility] Comment on above: Performed By: #### F T4 #### [facility] [address] [place] [address] Dr. Edil Gayle Parainfluenza 2 Not detected Normal NOT DETECTED [facility] Comment on above: Performed By: #### F T4 #### [facility] [address] [place] [address] Dr. Edil Gayle Parainfluenza 3 Not detected Normal NOT DETECTED [facility] Comment on above: Performed By: #### F T4 #### [facility] [address] [place] [address] Dr. Edil Gayle Parainfluenza 4 Not detected Normal NOT DETECTED [facility] Comment on above: Performed By: #### F T4 #### [facility] [address] [place] [address] Dr. Edil Gayle Rhino/Enterovirus Not detected Normal NOT DETECTED [facility] Comment on above: Performed By: #### F T4 #### [facility] [address] [place] [address] Dr. Edil Gayle RP2 Header 1 RESPIRATORY PANEL: VIRUSES Normal [facility] Comment on above: Performed By: #### F T4 #### [facility] [address] [place] [address] Dr. Edil Gayle RP2 Header 2 RESPIRATORY PANEL: BACTERIA Normal [facility] Comment on above: Performed By: #### F T4 #### [facility] [address] [place] [address] Dr. Edil Gayle RSV Not detected Normal NOT DETECTED [facility] Comment on above: Performed By: #### F T4 #### [facility] [address] [place] [address] Dr. Edil Gayle SARS-CoV-2 (COVID-19) RNA SARAH+probe Ql (Unsp spec) Not detected Normal NOT DETECTED [facility] Comment on above: Performed By: #### F T4 #### [facility] [address] [place] [address] Dr. Edil Gayle STREPT SCREENon 04-03-2022 STREP SCREEN A Negative Normal NEGATIVE [facility] Comment on above: Performed By: #### F T4 #### [facility] [address] [place] [address] Dr. Edil Gayle ECHOCARDIO M/2D COMPLETEon 1 04-03-2021 ECHOCARDIO M/2D COMPLETE Patient: ARACELI FRANCOIS Exam Date: 01/31/2022 : 1980 Gender:F Ordering : LASHAUN ANDRE Admission #: [id number] Family : Order #: [id number] CLICK HERE TO VIEW EXAM ECHOCARDIOGRAM REPORT [...] Borges M.D. on 02/07/2022 at 09:43 Normal [facility] NM STRESS/REST MULTIon 01-31 NM STRESS/REST MULTI Patient: ARACELI FRANCOIS Exam Date: 01/31/2022 : 1980 Gender:F Ordering : LASHAUN ANDRE Admission #: [id number] Family : Order #: [id number] CLICK HERE TO VIEW EXAM RADIOLOGY REPORT [...] Lyn MD on 02/02/2022 at 11:41 Normal [facility] MR head/brain wo/w conon MR head/brain wo/w con [facility] [place] [address] MRI Report Signed Patient: Araceli Francois MR#: [id number] : 1980 Acct:[id number] Age/Sex: 41 / F ADM Date: 12/20/21 Loc: MR Room: Type: [facility] Attending Dr: Ron Wallace DO Copies [...] Efrain Chapman M.D.12/21/2021 8:39 AM Dictation Location: [place] [address] Transcribed By: [facility] 12/21/21838 Dictated By: Efrain Chapman II, MD 12/21/21815 Signed By: 12/21/2139 [facility] XR LSPINE W_OBLS AND FLEX_EX Ton 12-21-2021 [...] by: MARCE LYN Date: 2021-12-21 07:11 Normal [facility] US SINGLE QUAD RT UPPERon US [...] MARCE LYN Date: 2021-12-11 08:32 Normal [facility] XR CHEST 2 Von 12-06-2021 XR [...] MARCE LYN Date: 2021-12-06 15:35 Normal [facility] MG MAMM SCREEN 3D TISHA CADon 11-08-2021 MG MAMM SCREEN 3D TISHA CAD Patient: ARACELI FRANCOIS Exam Date: 11/08/2021 : 1980 Gender:F 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 INDICATIONS: Screening mammography Calculator Name NCI Breast Cancer Risk Assessment Tool 5 Year Breast Cancer Risk 0.50% Lifetime Breast Cancer Risk 6.50% Personal Breast Cancer No Personal Ovarian Cancer No Treatments None Family Cancers None LOCATION: [facility] BREAST COMPOSITION: Scattered areas fibroglandular [...] MD on 11/09/2021 at 07:53 Normal [facility] CBC AUTO DIFFon 11-01-2021 BASO # 0.1 103/ul Normal 0.0-0.1 [facility] Comment on above: Performed By: #### F T4 #### [facility] [address] [address] [address] Edil Gayle Basophils/100 WBC (Bld) 1.2 % Normal 0.2-2.0 [facility] Comment on above: Performed By: #### F T4 #### [facility] [address] [place] [address] Dr. Edil Gayle EO # 0.3 103/ul Normal 0.0-0.7 [facility] Comment on above: Performed By: #### F T4 #### [facility] [address] [place] [address] Dr. Edil Gayle Eosinophils/100 WBC (Bld) 2.7 % Normal 0.9-7.0 [facility] Comment on above: Performed By: #### F T4 #### [facility] [address] [place] [address] Dr. Edil Gayle Erythrocyte distribution width (RBC) [Ratio] 12.8 % Normal 11.0-15.0 [facility] Comment on above: Performed By: #### F T4 #### [facility] [address] [place] [address] Dr. Edil Gayle Hematocrit (Bld) [Volume fraction] 46.5 % Normal 36.0-48.0 [facility] Comment on above: Performed By: #### F T4 #### [facility] [address] [place] [address] Dr. Edil Gayle Hemoglobin (Bld) [Mass/Vol] 15.5 g/dL Normal 12.0-16.0 [facility] Comment on above: Performed By: #### F T4 #### [facility] [address] [place] [address] Dr. Edil Gayle IG # 0.02 10e3/ul Normal 0.00-0.03 [facility] Comment on above: Performed By: #### F T4 #### [facility] [address] [place] [address] Dr. Edil Gayle IG % 0.2 % Normal 0.0-0.5 [facility] Comment on above: Performed By: #### F T4 #### [facility] [address] [place] [address] Dr. Edil Gayle LYMPH # 2.1 103/ul Normal 1.2-3.8 [facility] Comment on above: Performed By: #### F T4 #### [facility] [address] [place] [address] Dr. Edil Gayle Lymphocytes/100 WBC (Bld) 20.4 % Critically low 20.5-60.0 [facility] Comment on above: Performed By: #### F T4 #### [facility] [address] [place] [address] Dr. Edil Gayle MANUAL DIFF REQ NO Normal [facility] Comment on above: Performed By: #### F T4 #### [facility] [address] [place] [address] Dr. Edil Gayle MCH (RBC) [Entitic mass] 30.3 pg Normal 26.7-34.0 [facility] Comment on above: Performed By: #### F T4 #### [facility] [address] [place] [address] Dr. Edil Gayle MCHC (RBC) [Mass/Vol] 33.3 g/dL Normal 29.9-35.2 [facility] Comment on above: Performed By: #### F T4 #### [facility] [address] [place] [address] Dr. Edil Gayle MCV (RBC) [Entitic vol] 90.8 fL Normal 81.0-99.0 [facility] Comment on above: Performed By: #### F T4 #### [facility] [address] [place] [address] Dr. Edil Gayle MONO # 0.5 103/ul Normal 0.3-0.8 [facility] Comment on above: Performed By: #### F T4 #### [facility] [address] [place] [address] Dr. Edil Gayle Monocytes/100 WBC (Bld) 5.2 % Normal 1.7-12.0 [facility] Comment on above: Performed By: #### F T4 #### [facility] [address] [address] [address] Edil Gayle NEUT # 7.3 103/ul Critically high 1.4-6.[address] [facility] Comment on above: Performed By: #### F T4 #### [facility] [address] [address] [address] Edil Gayle Neutrophils/100 WBC (Bld) 70.3 % Normal 43.0-75.0 [facility] Comment on above: Performed By: #### F T4 #### [facility] [address] [place] [address] Dr. Edil Gayle Platelet mean volume (Bld) [Entitic vol] 8.8 fL Critically low 9.5-13.5 [facility] Comment on above: Performed By: #### F T4 #### [facility] [address] [place] [address] Dr. Edil Gayle PLT 294 103/ul Normal 150-450 [facility] Comment on above: Performed By: #### F T4 #### [facility] [address] [place] [address] Dr. Edil Gayle RBC 5.12 106/ul Normal 4.20-5.40 [facility] Comment on above: Performed By: #### F T4 #### [facility] [address] [place] [address] Dr. Edil Gayle WBC 10.3 103/ul Normal 4.0-11.0 [facility] Comment on above: Performed By: #### F T4 #### [facility] [address] [place] [address] Dr. Edil Gayle FREE T4on 11-01-2021 Free T4 [Mass/Vol] 0.88 ng/dL Normal 0.76-1.[address] [facility] Comment on above: Performed By: #### F T4 #### [facility] [address] [place] [address] Dr. Edil Gayle GLYCOHEMOGLOBIN A1Con 2021 ADA RECOMMENDATION SEE BELOW Normal [facility] Comment on above: Result Comment: ADA RECOMMENDED LIMIT 4.0 - 6.0 ADA THERAPEUTIC TARGET < 7.0 ACTION SUGGESTED > 7.0 Performed By: #### A 1C #### [facility] [address] [address] [address] Edil Gayle Glucose [Mass/Vol] 108 mg/dL Normal [facility] Comment on above: Performed By: #### A 1C #### [facility] [address] [address] [address] Edil Gayle HbA1c (Bld) [Mass fraction] 5.4 % Normal 4.5-6.2 [facility] Comment on above: Performed By: #### A 1C #### [facility] [address] [address] [address] Edil Gayle LIPID PROFILEon 11-01-2021 CHOL-HDL RATIO NORM SEE BELOW Normal [facility] Comment on above: Result Comment: 3.3 - 4.4 LOW RISK 4.4 - 7.1 AVERAGE RISK 7.1 - 11.0 MODERATE RISK >11.0 HIGH RISK Performed By: #### T SH, CMP, LIPID #### [facility] [address] [place] [address] Dr. Edil Gayle Cholesterol [Mass/Vol] 246 mg/dL Critically high <=200 [facility] Comment on above: Performed By: #### T SH, CMP, LIPID #### [facility] [address] [place] [address] Dr. Edil Gayle Cholesterol in HDL [Mass/Vol] 48 mg/dL Normal 40-60 [facility] Comment on above: Performed By: #### T SH, CMP, LIPID #### [facility] [address] [address] [address] Edil Gayle Cholesterol in LDL [Mass/Vol] 172.6 mg/dL Normal [facility] Comment on above: Performed By: #### T SH, CMP, LIPID #### [facility] [address] [place] [address] Dr. Edil Gayle Cholesterol.total/C holesterol in HDL [Mass ratio] 5.1 {ratio} Normal [facility] Comment on above: Performed By: #### T SH, CMP, LIPID #### [facility] [address] [address] [address] Edil Gayle HDL NORMAL > or = 60 mg/dl - LO W CARDIOVASCULAR RISK <40 mg/dl - HIGH CARDIOVASCULAR RISK Normal [facility] Comment on above: Performed By: #### T SH, CMP, LIPID #### [facility] [address] [address] [address] Edil Gayle LDL CALC NORMAL SEE BELOW Normal [facility] Comment on above: Result Comment: <100 mg/dl OPTIMAL 100 - 129 mg/dl NEAR OR ABOVE OPTIMAL 130 - 159 mg/dl BORDERLINE HIGH 160 - 189 mg/dl HIGH >190 mg/dl VERY HIGH Performed By: #### T SH, CMP, LIPID #### [facility] [address] [address] [address] Edil Gayle Triglyceride [Mass/Vol] 127 mg/dL Normal <=150 [facility] Comment on above: Performed By: #### T SH, CMP, LIPID #### [facility] [address] [address] [address] Edil Gayle VLDL CALC 25.4 mg/dL Normal [facility] Comment on above: Performed By: #### T SH, CMP, LIPID #### [facility] [address] [place] [address] Dr. Edil Gayle PROF 14(COMP METB)on 022 Albumin [Mass/Vol] 3.6 g/dL Normal 3.4-5.0 [facility] Comment on above: Performed By: #### T SH, CMP, LIPID #### [facility] [address] [place] [address] Dr. Edil Gayle Albumin/Globulin [Mass ratio] 1.0 {ratio} Normal [facility] Comment on above: Performed By: #### T SH, CMP, LIPID #### [facility] [address] [place] [address] Dr. Edil Gayle ALP [Catalytic activity/Vol] 109 U/L Normal 46-116 [facility] Comment on above: Performed By: #### T SH, CMP, LIPID #### [facility] [address] [place] [address] Dr. Edil Gayle ALT [Catalytic activity/Vol] 21 U/L Normal 14-59 [facility] Comment on above: Performed By: #### T SH, CMP, LIPID #### [facility] [address] [place] [address] Dr. Edil Gayle Anion gap [Moles/Vol] 10.9 mmol/L Normal [facility] Comment on above: Performed By: #### T SH, CMP, LIPID #### [facility] [address] [place] [address] Dr. Edil Gayle AST [Catalytic activity/Vol] 15 U/L Normal 15-37 [facility] Comment on above: Performed By: #### T SH, CMP, LIPID #### [facility] [address] [place] [address] Dr. Edil Gayle Bilirubin [Mass/Vol] 0.8 mg/dL Normal 0.2-1.0 [facility] Comment on above: Performed By: #### T SH, CMP, LIPID #### [facility] [address] [place] [address] Dr. Edil Gayle Calcium [Mass/Vol] 9.3 mg/dL Normal 8.5-10.1 [facility] Comment on above: Performed By: #### T SH, CMP, LIPID #### [facility] [address] [place] [address] Dr. Edil Gayle Chloride [Moles/Vol] 104 mmol/L Normal 98-107 [facility] Comment on above: Performed By: #### T SH, CMP, LIPID #### [facility] [address] [place] [address] Dr. Edil Gayle CO2 [Moles/Vol] 30.6 mmol/L Normal 21.0-32.0 [facility] Comment on above: Performed By: #### T SH, CMP, LIPID #### [facility] [address] [place] [address] Dr. Edil Gayle Creatinine [Mass/Vol] 0.77 mg/dL Normal 0.55-1.02 [facility] Comment on above: Performed By: #### T SH, CMP, LIPID #### [facility] [address] [address] [address] Edil Gayle EGFR-AF OMANI >60 Normal >=60 [facility] Comment on above: Performed By: #### T SH, CMP, LIPID #### [facility] [address] [address] [address] Edil Gayle EGFR-NON AF OMANI >60 Normal >=60 [facility] Comment on above: Performed By: #### T SH, CMP, LIPID #### [facility] [address] [address] [address] Edil Gayle Globulin (S) [Mass/Vol] 3.7 g/dL Normal [facility] Comment on above: Performed By: #### T SH, CMP, LIPID #### [facility] [address] [place] [address] Dr. Edil Gayle Glucose [Mass/Vol] 106 mg/dL Normal 74-[address] [facility] Comment on above: Performed By: #### T SH, CMP, LIPID #### [facility] [address] [address] [address] Edil Gayle Potassium [Moles/Vol] 4.5 mmol/L Normal 3.5-5.1 [facility] Comment on above: Performed By: #### T SH, CMP, LIPID #### [facility] [address] [address] [address] Edil Gayle Protein [Mass/Vol] 7.3 g/dL Normal 6.4-8.[address] [facility] Comment on above: Performed By: #### T SH, CMP, LIPID #### [facility] [address] [address] [address] Edil Gayle Sodium [Moles/Vol] 141 mmol/L Normal 136-[address] [facility] Comment on above: Performed By: #### T SH, CMP, LIPID #### [facility] [address] [place] [address] Dr. Edil Gayle Urea nitrogen [Mass/Vol] 11.0 mg/dL Normal 7.0-18.0 [facility] Comment on above: Performed By: #### T SH, CMP, LIPID #### [facility] [address] [place] [address] Dr. Edil Gayle Urea nitrogen/Creatinine [Mass ratio] 14.3 mg/mg Normal [facility] Comment on above: Performed By: #### T SH, CMP, LIPID #### [facility] [address] [place] [address] Dr. Edil Gayle TSHon 11-01-2021 TSH 2.620 uIU/mL Normal 0.358-3.740 [facility] Comment on above: Performed By: #### T SH, CMP, LIPID #### [facility] [address] [place] [address] Dr. Edil Gayle CBC AUTO DIFFon 07-28-2021 BASO # 0.1 103/ul Normal 0.0-0.1 [facility] Comment on above: Performed By: #### C BC #### [facility] [address] [place] [address] Dr. Edil Gayle Basophils/100 WBC (Bld) 1.0 % Normal 0.2-2.0 [facility] Comment on above: Performed By: #### C BC #### [facility] [address] [place] [address] Dr. Edil Gayle EO # 0.3 103/ul Normal 0.0-0.7 [facility] Comment on above: Performed By: #### C BC #### [facility] [address] [place] [address] Dr. Edil Gayle Eosinophils/100 WBC (Bld) 2.9 % Normal 0.9-7.0 [facility] Comment on above: Performed By: #### C BC #### [facility] [address] [place] [address] Dr. Edil Gayle Erythrocyte distribution width (RBC) [Ratio] 13.0 % Normal 11.0-15.0 [facility] Comment on above: Performed By: #### C BC #### [facility] [address] [place] [address] Dr. Edil Gayle Hematocrit (Bld) [Volume fraction] 46.3 % Normal 36.0-48.0 [facility] Comment on above: Performed By: #### C BC #### [facility] [address] [place] [address] Dr. Edil Gayle Hemoglobin (Bld) [Mass/Vol] 15.4 g/dL Normal 12.0-16.0 [facility] Comment on above: Performed By: #### C BC #### [facility] [address] [place] [address] Dr. Edil Gayle IG # 0.03 10e3/ul Normal 0.00-0.03 [facility] Comment on above: Performed By: #### C BC #### [facility] [address] [place] [address] Dr. Edil Gayle IG % 0.3 % Normal 0.0-0.5 [facility] Comment on above: Performed By: #### C BC #### [facility] [address] [place] [address] Dr. Edil Gayle LYMPH # 2.4 103/ul Normal 1.2-3.8 [facility] Comment on above: Performed By: #### C BC #### [facility] [address] [place] [address] Dr. Edil Gayle Lymphocytes/100 WBC (Bld) 22.4 % Normal 20.5-60.0 [facility] Comment on above: Performed By: #### C BC #### [facility] [address] [place] [address] Dr. Edil Gayle MANUAL DIFF REQ NO Normal [facility] Comment on above: Performed By: #### C BC #### [facility] [address] [place] [address] Dr. Edil Gayle MCH (RBC) [Entitic mass] 30.9 pg Normal 26.7-34.0 [facility] Comment on above: Performed By: #### C BC #### [facility] [address] [place] [address] Dr. Edil Gayle MCHC (RBC) [Mass/Vol] 33.3 g/dL Normal 29.9-35.2 [facility] Comment on above: Performed By: #### C BC #### [facility] [address] [address] [address] Edil Gayle MCV (RBC) [Entitic vol] 93.0 fL Normal 81.0-99.0 [facility] Comment on above: Performed By: #### C BC #### [facility] [address] [address] [address] Edil Gayle MONO # 0.7 103/ul Normal 0.3-0.8 [facility] Comment on above: Performed By: #### C BC #### [facility] [address] [address] [address] Edil Gayle Monocytes/100 WBC (Bld) 6.9 % Normal 1.7-12.0 [facility] Comment on above: Performed By: #### C BC #### [facility] [address] [place] [address] Dr. Edil Gayle NEUT # 7.1 103/ul Critically high 1.4-6.[address] [facility] Comment on above: Performed By: #### C BC #### [facility] [address] [place] [address] Dr. Edil Gayle Neutrophils/100 WBC (Bld) 66.5 % Normal 43.0-75.0 [facility] Comment on above: Performed By: #### C BC #### [facility] [address] [place] [address] Dr. Edil Gayle Platelet mean volume (Bld) [Entitic vol] 9.4 fL Critically low 9.5-13.5 [facility] Comment on above: Performed By: #### C BC #### [facility] [address] [place] [address] Dr. Edil Gayle PLT 247 103/ul Normal 150-450 [facility] Comment on above: Performed By: #### C BC #### [facility] [address] [address] [address] Edil Gayle RBC 4.98 106/ul Normal 4.20-5.40 [facility] Comment on above: Performed By: #### C BC #### [facility] [address] [place] [address] Dr. Edil Gayle WBC 10.7 103/ul Normal 4.0-11.0 [facility] Comment on above: Performed By: #### C BC #### [facility] [address] [place] [address] ABD/PELV W CONon 07-29-19 CT ABD/PELV W CON EXAMINATION: CT ABD/PELV [...] MICHELLE HENRY Date: 2021-07-28 11:03 Normal [facility] ER URINE PROFILEon 2 Bilirubin Ql (U) Negative Normal NEGATIVE [facility] Comment on above: Performed By: #### E RUR #### [facility] [address] [place] [address] Dr. Edil Gayle Clarity (U) CLEAR Normal CLEAR [facility] Comment on above: Performed By: #### E RUR #### [facility] [address] [place] [address] Dr. Edil Gayle Color (U) YELLOW Normal YELLOW [facility] Comment on above: Performed By: #### E RUR #### [facility] [address] [place] [address] Dr. Edil Gayle ERUAHD A micrscopic examination will be performed if indicated. Normal [facility] Comment on above: Performed By: #### E RUR #### [facility] [address] [place] [address] Dr. Edil Gayle Glucose Ql (U) Negative Normal NEGATIVE [facility] Comment on above: Performed By: #### E RUR #### [facility] [address] [place] [address] Dr. Edil Gayle Hemoglobin Ql (U) Negative Normal NEGATIVE [facility] Comment on above: Performed By: #### E RUR #### [facility] [facility] [address] [place] [address] Dr. Edil Gayle Ketones Ql (U) Negative Normal NEGATIVE [facility] Comment on above: Performed By: #### E RUR #### [facility] [address] [place] [address] Dr. Edil Gayle LEUKOCYTES Negative Normal NEGATIVE [facility] Comment on above: Performed By: #### E RUR #### [facility] [address] [place] [address] Dr. Edil Gayle Nitrite Ql (U) Negative Normal NEGATIVE [facility] Comment on above: Performed By: #### E RUR #### [facility] [address] [place] [address] Dr. Edil Gayle pH (U) 6.0 [pH] Normal 5-9 [facility] Comment on above: Performed By: #### E RUR #### [facility] [address] [place] [address] Dr. Edil Gayle SPEC GRAVITY 1.030 Abnormal 1.005-<=1.02 5 [facility] Comment on above: Performed By: #### E RUR #### [facility] [address] [place] [address] Dr. Edil Gayle UA PROTEIN Negative Normal NEGATIVE/ TRACE [facility] Comment on above: Performed By: #### E RUR #### [facility] [address] [place] [address] Dr. Edil Gayle UR MICRO IND NOT INDICATED Normal [facility] Comment on above: Performed By: #### E RUR #### [facility] [address] [address] [address] Edil Gayle Urobilinogen Qn (U) 0.2 {Tee'U}/dL Normal 0.2 - 1. 0 [facility] Comment on above: Performed By: #### E RUR #### [facility] [address] [place] [address] Dr. Edil Gayle PROF CHEM 8 (BAS METB)on Anion gap [Moles/Vol] 9.8 mmol/L Normal [facility] Comment on above: Performed By: #### F T4 #### [facility] [address] [place] [address] Dr. Edil Gayle Calcium [Mass/Vol] 8.4 mg/dL Critically low 8.5-10.1 [facility] Comment on above: Performed By: #### F T4 #### [facility] [address] [place] [address] Dr. Edil Gayle Chloride [Moles/Vol] 106 mmol/L Normal 98-107 [facility] Comment on above: Performed By: #### F T4 #### [facility] [address] [place] [address] Dr. Edil Gayle CO2 [Moles/Vol] 29.1 mmol/L Normal 21.0-32.[address] [facility] Comment on above: Performed By: #### F T4 #### [facility] [address] [place] [address] Dr. Edil Gayle Creatinine [Mass/Vol] 0.78 mg/dL Normal 0.55-1.02 [facility] Comment on above: Performed By: #### F T4 #### [facility] [address] [place] [address] Dr. Edil Gayle EGFR-AF OMANI >60 Normal >=60 [facility] Comment on above: Performed By: #### F T4 #### [facility] [address] [place] [address] Dr. Edil Gayle EGFR-NON AF OMANI >60 Normal >=60 [facility] Comment on above: Performed By: #### F T4 #### [facility] [address] [address] [address] Edil Gayle Glucose [Mass/Vol] 89 mg/dL Normal 74-106 [facility] Comment on above: Performed By: #### F T4 #### [facility] [address] [address] [address] Edil Gayle Potassium [Moles/Vol] 3.9 mmol/L Normal 3.5-5.1 [facility] Comment on above: Performed By: #### F T4 #### [facility] [address] [address] [address] Edil Gayle Sodium [Moles/Vol] 141 mmol/L Normal 136-145 [facility] Comment on above: Performed By: #### F T4 #### [facility] [address] [place] [address] Dr. Edil Gayle Urea nitrogen [Mass/Vol] 12.0 mg/dL Normal 7.0-18.0 [facility] Comment on above: Performed By: #### F T4 #### [facility] [address] [place] [address] Dr. Edil Gayle Urea nitrogen/Creatinine [Mass ratio] 15.4 mg/mg Normal [facility] Comment on above: Performed By: #### F T4 #### [facility] [address] [place] [address] Dr. Edil Gayle ANAon 11-22-2020 RAFIA PATTERN SPECKLED Normal [facility] Comment on above: Result Comment: The [...] authority. Performed By: #### 1 0196 #### [facility] [address] RAFIA SCREEN 1:80 Abnormal <1:40,1:40 [facility] Comment on above: Result Comment: Test performed using JOSE C IFA RAFIA Hep-2 Test, a pre-standardized assay designed for the qualitative and semi-quantitative detection of antinuclear antibodies. Performed By: #### 1 0196 #### [facility] [address] [place] [address], [facility] C REACTIVE PROTEINon 021 CRP [Mass/Vol] 1.9 mg/L Normal 0.0-7.0 [facility] Comment on above: Performed By: #### 9 9744, 42947, 36873 #### [facility] [address] [place] [address], [facility] CBC W/DIFFon 11-22-2020 ABS IMM GRANS 0.0 10*3/uL Normal 0.0-0.2 [facility] Comment on above: Performed By: #### 5 0103, 98009 #### [facility] [address] [place] [address], [facility] ABS NEUTROPHILS 10.1 10*3/uL High 1.6-7.6 The [facility] Comment on above: Performed By: #### 5 0103, 18190 #### [facility] [address] [place] [address], [facility] Basophils (Bld) [#/Vol] 0.1 10*3/uL Normal 0.0-0.2 [facility] Comment on above: Performed By: #### 5 0103, 57232 #### [facility] [address] [place] [address], [facility] Basophils/100 WBC (Bld) 0.8 % Normal 0.0-1.0 [facility] Comment on above: Performed By: #### 5 0103, 86736 #### [facility] [address] [place] [address], [facility] Eosinophils (Bld) [#/Vol] 0.2 10*3/uL Normal 0.0-0.5 [facility] Comment on above: Performed By: #### 5 102, 05531 #### [facility] [address] [facility]. [address] Eosinophils/100 WBC (Bld) 1.2 % Normal 0.0-6.0 [facility] Comment on above: Performed By: #### 5 102, 24330 #### [facility] [address] Erythrocyte distribution width (RBC) [Ratio] 13.2 % Normal 11.5-15.0 [facility] Comment on above: Performed By: #### 5 102, 08663 #### [facility] [address] Hematocrit (Bld) [Volume fraction] 47.8 % High 36.0-45.0 [facility] Comment on above: Performed By: #### 5 102, 58592 #### [facility] [address] Hemoglobin (Bld) [Mass/Vol] 16.1 g/dL High 12.0-15.0 [facility] Comment on above: Performed By: #### 5 102, 02923 #### [facility] [address] [facility]. [address] IMMATURE GRANS 0.3 % Normal 0.0-1.0 [facility] Comment on above: Performed By: #### 5 102, 63073 #### [facility] [address] [facility]. [address] Lymphocytes (Bld) [#/Vol] 2.3 10*3/uL Normal 1.2-4.0 [facility] Comment on above: Performed By: #### 102, 73933 #### [facility] [address] Lymphocytes/100 WBC (Bld) 17.1 % Low 20.0-45.0 [facility] Comment on above: Performed By: #### 5 102, 08254 #### [facility] [address] MCH (RBC) [Entitic mass] 30.8 pg Normal 27.0-33.0 [facility] Comment on above: Performed By: #### 102, 42385 #### [facility] [address] MCHC (RBC) [Mass/Vol] 33.7 g/dL Normal 32.0-35.0 [facility] Comment on above: Performed By: #### 5 102, 19111 #### [facility] [address] MCV (RBC) [Entitic vol] 91.4 fL Normal 82.0-98.0 [facility] Comment on above: Performed By: #### 5 102, 95204 #### [facility] [address] Monocytes (Bld) [#/Vol] 0.7 10*3/uL Normal 0.1-1.0 [facility] Comment on above: Performed By: #### 5 102, 83850 #### [facility] [address] MONOS 5.0 % Normal 5.0-12.0 [facility] Comment on above: Performed By: #### 5 102, 10905 #### [facility] [address] Neutrophils/100 WBC (Bld) 75.6 % High 40.0-72.0 [facility] Comment on above: Performed By: #### 5 102, 91109 #### [facility] [address] Nucleated RBC/100 WBC (Bld) [Ratio] 0 % Normal 0-0 [facility] Comment on above: Performed By: #### 5 0103, 26518 #### [facility] [address] [place] [address], [facility] PLAT CNT 303 10*3/uL Normal 150-400 [facility] Comment on above: Performed By: #### 5 0103, 73499 #### [facility] [address] [place] [address], [facility] RBC (Bld) [#/Vol] 5.23 10*6/uL High 3.80-5.00 [facility] Comment on above: Performed By: #### 5 0103, 13553 #### [facility] [address] [place] [address], [facility] WBC (Bld) [#/Vol] 13.31 10*3/uL High 4.00-10.60 [facility] Comment on above: Performed By: #### 5 0103, 83043 #### [facility] [address] CYCLIC [place]INATED PEPTIDE [place] [address]oj 11-22-2020 CYCLIC CIT PEP 4 Units Normal 0-19 [facility] Comment on above: Result Comment: INTE [...] be monitored and testing repeated. Performed By: [employer] [address] [place] [address] Manuscript Editor: Olga Duval MD HAND LEFT 3 [facility] 11-22-2020 HAND LEFT 3 [facility] Department of Radiology [address] [place] [phone] ===== Patient Name: ARACELI FRANCOIS : 1980 Sex: F Age: Race: White Pt. Location: Critical access hospital Patient Status: D Ordered Date: 11/22/2020 10:50:00 AM Completed Date: 11/22/2020 10:54 AM Requesting Provider: DANYA ROTHMAN Attending Provider: DANYA ROTHMAN Report Copy To: Signs & Symptoms: M25.50 Pain in unspecified joint I10 History: [place] Comments: Evaluate Exam: HAND LEFT 3 [facility] ===== HAND LEFT 3 [facility] 11/22/2020 10:54 AM CLINICAL INDICATIONS: M25.50 Pain [...] osteoarthritis. Electronically signed: Neftali Gates. Transcribed by: [email or web address], User Resident: Electronically Signed by: NEFTALI GATES @ 11/23/2020 09:30 AM Normal [facility] Comment on above: Order Comment: Evalu ate HAND RIGHT 3 [facility] HAND RIGHT 3 [facility] Department of Radiology [address] [place] [phone] ===== Patient Name: ARACELI FRANCOIS : 1980 Sex: F Age: Race: White Pt. Location: Critical access hospital Patient Status: D Ordered Date: 11/22/2020 10:50:00 AM Completed Date: 11/22/2020 10:54 AM Requesting Provider: DANYA ROTHMAN Attending Provider: DANYA ROTHMAN Report Copy To: Signs & Symptoms: M25.50 Pain in unspecified joint I10 History: [place] Comments: Evaluate Exam: HAND RIGHT 3 [facility] ===== HAND RIGHT 3 S 11/22/2020 10:54 [...] report. Electronically signed: Neftali Gates. Transcribed by: [email or web address], User Resident: JOSIANE LAWRENCE Electronically Signed by: NEFTALI GATES @ 11/23/2020 12:29 PM I personally read this/these film(s) with this resident Normal [facility] Comment on above: Order Comment: Evalu ate PILAR BLon 11-22-2020 IgA [Mass/Vol] 410 mg/dL Normal 60-413 [facility] Comment on above: Performed By: #### 9 9744, 92440, 93222 #### [facility] [address] [place] [address], [facility] IgG [Mass/Vol] 908 mg/dL Normal 591-1540 [facility] Comment on above: Performed By: #### 9 9744, 04354, 70865 #### [facility] [address] [place] [address], [place] IgM [Mass/Vol] 58 mg/dL Normal 54-285 [facility] Comment on above: Performed By: #### 9 9744, 41006, 63523 #### [facility] [address] [place] [address], [place] RHEUMATOID FACTOR SERUMon RA <20 Normal 0-20 [facility] Comment on above: Performed By: #### 9 9744, 68875, 89291 #### [facility] [address] [place] [address], [place] SEDIMENTATION RATEon 021 SED RATE 4 mm/hr Normal 0-20 [facility] Comment on above: Performed By: #### 5 0103, 87472 #### [facility] [address] t cell subset analysison CD3 % 86.24 % Normal 65.00-90.00 [facility] Comment on above: Order Comment: This test was developed and its performance characteristics determined by the [facility] Flow Cytometry Laboratory. It has not been cleared or approved by the U.S. Food and Drug Administration. Performed By: #### 9 0116 #### [facility] [address] CD3 ABSOLUTE 1963 cells/mm3 Normal 760-2130 The [facility] Comment on above: Order Comment: This test was developed and its performance characteristics determined by the [facility] Flow Cytometry Laboratory. It has not been cleared or approved by the U.S. Food and Drug Administration. Performed By: #### 9 0116 #### [address] CD4 % 67.10 % Normal 40.00-70.00 [facility] Comment on above: Order Comment: This test was developed and its performance characteristics determined by the [facility] Flow Cytometry Laboratory. It has not been cleared or approved by the U.S. Food and Drug Administration. Performed By: #### 9 0116 #### [facility] [address] CD4 ABSOLUTE 1527 cells/mm3 High 430-1185 The [facility] Comment on above: Order Comment: This test was developed and its performance characteristics determined by the [facility] Flow Cytometry Laboratory. It has not been cleared or approved by the U.S. Food and Drug Administration. Performed By: #### 9 0116 #### [facility] [address] CD4:CD8 RATIO 3.79 Normal 1.00-4.00 The [facility] Comment on above: Order Comment: This test was developed and its performance characteristics determined by the [facility] Flow Cytometry Laboratory. It has not been cleared or approved by the U.S. Food and Drug Administration. Performed By: #### 9 0116 #### [facility] [address] CD8 % 17.70 % Normal 15.00-40.00 [facility] Comment on above: Order Comment: This test was developed and its performance characteristics determined by the [facility] Flow Cytometry Laboratory. It has not been cleared or approved by the U.S. Food and Drug Administration. Performed By: #### 9 0116 #### [facility] [address] CD8 ABSOLUTE 403 cells/mm3 Normal 180-865 [facility] Comment on above: Order Comment: This test was developed and its performance characteristics determined by the [facility] Flow Cytometry Laboratory. It has not been cleared or approved by the U.S. Food and Drug Administration. Performed By: #### 9 0116 #### [facility] [address] Vital Signs Date Time Vital Sign Value Performing Clinician Facility 04-25-2023 12:38-0400 Body height 162.6 cm Db Rivera MD Work Phone: [facility] 04-25-2023 12:38-0400 Body mass index (BMI) [Ratio] 42.05 kg/m2 Db Rivera MD Work Phone: [facility] 04-25-2023 12:38-0400 Body weight 111.13 kg Db Rivera MD Work Phone: [facility] 04-25-2023 12:38-0400 Diastolic blood pressure 99 mm[Hg] Db Rivera MD Work Phone: [facility] 04-25-2023 12:38-0400 Heart rate 93 /min Db Rivera MD Work Phone: [facility] 04-25-2023 12:38-0400 Systolic blood pressure 146 mm[Hg] Db Rivera MD Work Phone: [employer] [facility] 03-16-2023 10:58-0500 Body height 162.6 cm [facility] 03-16-2023 10:58-0500 Body mass index (BMI) [Ratio] 42.05 kg/m2 [facility] 03-16-[facility]23 10:58-0500 Body weight 111.13 kg [facility] 1 [facility] 03-01-2023 14:45-0500 Body height 162.56 cm Kisha Barkley Other [facility] Other 03-01-2023 14:45-0500 Body mass index (BMI) [Ratio] 42.05 kg/m2 Kisha Barkley Other [facility] Other 03-01-2023 14:45-0500 Body temperature 97.5 [degF] Kisha Barkley Other [facility] Other 03-01-2023 14:45-0500 Body weight 111.13 kg Kisha Barkley Other [facility] Other 03-01-2023 14:45-0500 Respiratory rate 18 /min Kisha Barkley Other [facility] Other 03-01-2023 14:45-0500 SaO2% (BldA) [Mass fraction] 99 % Kisha Barkley Other [facility] Other 10-26-2022 09:00-0400 Body height 162.56 cm Albaro Wilson Other [facility] Other 10-26-2022 09:00-0400 Body mass index (BMI) [Ratio] 43.25 kg/m2 Albaro Wilson Other [facility] Other 10-26-2022 09:00-0400 Body weight 114.31 kg Albaro Wilson Other [facility] Other 10-26-2022 09:00-0400 Diastolic blood pressure 80 mm[Hg] Albaro Wilson Other [facility] Other 10-26-2022 09:00-0400 Systolic blood pressure 122 mm[Hg] Albaro Wilson Other [facility] Other 09-12-2022 14:20-0400 Diastolic blood pressure 70 mm[Hg] [facility] 09-12-2022 14:20-0400 Heart rate 70 /min [facility] 09-12-2022 14:20-0400 Respiratory rate 16 /min [facility] 09-12-2022 14:20-0400 SaO2% (BldA) [Mass fraction] 97 % [facility] 09-12-2022 14:20-0400 Systolic blood pressure 131 mm[Hg] [facility] 09-12-2022 12:54-0400 Body height 162.56 cm [facility] 09-12-2022 12:54-0400 Body temperature 98.2 [degF] [facility] 09-12-2022 12:54-0400 Body weight 113.39 kg [facility] Encounters Encounter Date Encounter Type Care Provider Facility Start: 10-22-2023 End: 10-22-2023 ambulatory [facility] Start: 06-01-2023 End: 06-01-2023 ambulatory LIZZ GUTIÉRREZ [facility] Start: 04-25-2023 End: 04-25-2023 ambulatory DB RIVERA [facility] Start: 04-25-2023 End: 04-25-2023 Office outpatient visit 15 minutes Db Rivera MD Work Phone: [facility] Comment on above: 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 (Primary Dx) Start: 03-19-2023 Telephone encounter Db Rivera MD Work Phone: [facility] Start: 03-19-2023 End: 03-19-2023 Evaluation and management of inpatient BD RIVERA [facility] Start: 03-16-2023 End: 03-16-2023 ambulatory [facility] Pat Phone Call Provider 1 [facility] - Pre Ad[facility] Start: 03-16-2023 End: 03-16-2023 ambulatory SHAD PRIETO [facility] Start: 03-12-2023 End: 03-13-2023 ambulatory LIZZ GUTIÉRREZ [facility] Start: 03-01-2023 End: 03-01-2023 ambulatory Kisha Barkley Other [facility] Other Start: 03-01-2023 Office outpatient visit 25 minutes Kisha Barkley [facility] Start: 02-06-2023 End: 02-07-2023 ambulatory DB RIVERA [facility] Start: 10-26-2022 End: 10-26-2022 ambulatory Albaro Wilson Other [facility] Other Start: 10-26-2022 Office outpatient visit 15 minutes Albaro Wilson [facility] Start: 09-19-2022 End: 09-19-2022 ambulatory Albaro Wilson Other [facility] Other Start: 09-19-2022 Telephone encounter [facility] Start: 09-12-2022 End: 09-12-2022 ambulatory Siva You Facility:[facility] Start: 09-12-2022 End: 09-12-2022 Admission to same day surgery center [facility] Work Phone: Start: 09-12-2022 End: 09-12-2022 ambulatory NON STAFF [facility] Work Phone: Start: 06-30-2022 End: 02-14-2023 ambulatory Greyson Lincoln Start: 06-07-2022 ambulatory SHAD SHAMMO Facility:[facility] 1 Start: 04-21-2022 End: 04-22-2022 ambulatory SHAD SHAMMO Facility:[facility] Start: 04-03-2022 End: 04-03-2022 ambulatory SHAD SHAMMO Facility:[facility] Start: 01-31-2022 End: 02-01-2022 ambulatory LASHAUN ANDRE Facility:[facility] Start: 01-10-2022 End: 01-11-[address] OMAR GUIDRY . Facility:[facility] Start: 12-20-2021 End: 12-20-2021 ambulatory NON STAFF Facility:[facility] Start: 12-20-2021 End: 12-20-2021 ambulatory NON STAFF [facility] Work Phone: Start: 12-20-2021 End: 12-20-2021 Patient encounter procedure DO Ron Wallace Work Phone: [facility] [place] Start: 12-20-2021 End: 12-21-[address] OMAR GUIDRY . Facility:[facility] Start: 12-10-2021 End: 12-11-2021 ambulatory SHAD SHAMMO Facility:[facility] Start: 12-06-2021 End: 12-07-2021 ambulatory SHAD SHAMMO Facility:[facility] Start: 11-08-2021 End: 11-09-2021 ambulatory SHAD SHAMMO Facility:[facility] Start: 11-03-2021 Encounter for genera l adult medical examination without abnormal findings DR DOCTOR HORNER [facility] Start: 11-01-2021 End: 11-02-[address] [...] Td Vaccines (2 - Td or Tdap) [facility] Start: 03-19-2024 Tobacco Screening Tobacco Screening [facility] Start: 03-16-2024 Adult BMI Screening Adult BMI Screen ing [facility] Start: 01-02-2024 Tobacco Screening Tobacco Screening [facility] Start: 07-06-2023 Depression Screening Depression Scre ening [facility] Start: 06-01-2023 End: 06-01-2023 Patient encounter procedure 06/01/2023 10:30 AM EDT Office Visit Anabel Colmenares [facility] [address] [place] [phone] Lizz Gutiérrez MD [address] [facility] [address] [place] [id number] Anabel Colmenares [facility] Start: 04-27-2023 End: 04-27-2023 Patient encounter procedure 04/27/2023 3:15 PM EDT Office Visit Anabel Colmenares [facility] [address] [place] [phone] Lizz Gutiérrez MD [address] [email or web address] [address] [place] [phone] Anabel Colmenares [facility] Start: 03-19-2023 End: 03-19-2023 Patient encounter procedure 03/19/2023 3:45 PM EST Office Visit [facility] [address] [place] [phone] Db Rivera MD [address] [place] [address] [phone] [facility] Start: 03-19-2023 End: 03-19-2023 Admission to same day surgery center 03/19/2023 9:30 AM EST - 03/19/2023 10:00 AM EST Surgery [facility] [address] [place] [phone] Db Rivera MD [address] [place] [id number] CYSTOSCOPY WITH BLADDER IRRIGATION AND [facility] BLADDER SOLUTION [67323 (CPT )] [facility] Comment on above: CYSTOSCOPY WITH BLAD ELI IRRIGATION AND [facility] BLADDER SOLUTION [14304 (CPT )] Start: 03-19-2023 End: 03-19-2023 Cystourethroscopy [place] [facility] Start: 03-19-2023 Subsequent hospital visit by physician 03/19/2023 9:30 AM EST Hospital Encounter [facility] [address] [place] [phone] Db Rivera MD [address] [place] [id number] [facility] Start: 10-06-2022 Influenza vaccination Influenza Vacc ine [facility] Start: 09-12-2022 [facility] Start: 12-20-2021 MR Unspecified body region [facility] Start: 12-20-2021 MRI of head MR head/brain wo/w con [facility] Start: 1996 Adult BMI Follow Up Plan Adult BMI Follow Up Plan [facility] Start: 1978 Tobacco Counseling Tobacco Counselin ashutosh [facility] Patient Education Hiatal Hernia (DC) [facility] [facility] Work Phone: Immunizations Immunization Date Immunization Notes Care Provider Fa cility 09-28-2018 tetanus toxoid, redu moon diphtheria toxoid, and acellular pertussis vaccine, adsorbed Pmh 1 [facility] Payers Date Payer Category Payer Medicaid ANTH MEDICAID [facility] MEDICAID [id number] 2022-Present [address] [place] [address] [id number] 2022 Medicaid [id number] 2021 Self-pay [id number] 1978 Unknown [id number] 2.16.840.1.114542.3.579.2.593 1978 Unknown [id number] 2.16.840.1.765279.3.579.2.593 1978 Unknown [id number] 2.16.840.1.161409.3.579.2.593 1978 Unknown [id number] 2.16.840.1.370923.3.579.2.593 1978 Unknown [id number] 2.16.840.1.512714.3.579.2.593 1978 Unknown [id number] 2.16.840.1.743153.3.579.2.593 1978 Unknown [id number] 2.16.840.1.747073.3.579.2.593 1978 Unknown [id number] 2.16.840.1.628159.3.579.2.593 1978 Unknown [id number] 2.16.840.1.867508.3.579.2.593 1978 Unknown [id number] 2.16.840.1.734521.3.579.2.593 1978 Unknown [id number] 2.16.840.1.175623.3.579.2.593 1978 Unknown [id number] 2.16.840.1.948842.3.579.2.593 1978 Unknown [id number] 2.16.840.1.404982.3.579.2.593 1978 Unknown [id number] 2.16.840.1.476949.3.579.2.1286 1978 Unknown [id number] 2.16.840.1.138053.3.579.2.1286 1978 Unknown [id number] 2.16.840.1.396487.3.579.2.1286 1978 Unknown [id number] 2.16.840.1.356323.3.579.2.1286 1978 Unknown [id number] 2.16.840.1.257493.3.579.2.1286 1978 Unknown [id number] 2.16.840.1.961882.3.579.2.1286 1959 Medicaid [id number] Unknown [id number] 2.16.840.1.511209.3.579.2.531 Unknown [id number] 2.16.840.1.487394.3.579.2.531 Social History Date Type Detail Facility Tobacco smoking stat [facility] Unknown if ever smoked [facility] Work Phone: Start: 1980 Sex Assigned At Female F [facility] Start: 09-12-[address] [facility] Smoker (finding) [facility] Start: 03-18-2020 End: 07-05-[address] [facility] Start: 06-21-2022 End: 03-19-2023 Tobacco smoking status FLIS Smokes tobacco daily [facility] History of tobacco use Cigarette Smoker P [facility] Start: 03-18-2020 End: 06-21-2022 Cigarettes smoked current (pack per day) - Reported 0.5 [facility] Start: 06-21-2022 End: 03-19-2023 Tobacco use and exposure [facility]ok[facility] Start: 03-16-2023 End: 04-25-2023 Alcohol intake Current non-drinker of alcohol (finding) [facility] How often to you hav e a drink containing alcohol? Never [facility] How many standard drinks containing alcohol do you have on a typical day? Patient does not drink [facility] Start: 06-21-2022 Tobacco Comment Has a patch an d down to 4 cig. Per day [facility] Start: 1980 Sex Assigned At Not on file P [facility] Medical Equipment Procedure Code Equipment Code Equipment Origin al Text Equipment Identifier Dates Graft Bn 5ml Yomi Puros Strl Lf - [id number] Start: 07-05-2022 Cover Bur Hl 14m m Lp Tab Unv Neuro 2 Thk.5mm Ns Lf - [id number] Start: 07-05-2022 Plate Bn 16mm 2 Hl Lp Unv Neuro Ii Crnmxf Ti Ns Lf 1.5mm Scr - [id number] Start: 07-05-2022 Screw Bn 4mm 1.5 mm Slf Drl Xpn Crnmxf Strl - [id number] Start: 07-05-2022 Goals Date Patient Goal Desired Activity /State Clinical Notes 12-20-2021 to 10-22-2023 Assessment & Plan Note - Db Rivera MD - 04/25/2023 12:48 PM EDTAssessment & Plan Note - Db Rivera MD - 04/25/2023 12:48 PM EDTMdiane Rivera MD - 04/25/2023 12:45 PM EDT Note Date & Type Note Facility 10-22-2023 Note Today states that sh e is out of elavil and does not have appt with PCP until Nov 09- therefore will prescribed short 3 week script to fill [facility] 10-22-2023 Note F/U with PCP as scheduled Andrea lundy [facility] 10-22-2023 Note Lipid abnormalities are stable, continue lipitor 40 mg daily [facility] 10-22-2023 Note Hypertension is stab le and well controlled Continue hydrochlorothiazide, losartan, norvasc [facility] 10-22-2023 Note Currently resolved [facility] 10-22-2023 Note Patient here for 1.5 year follow up hypertension. Still has pain under her right breast, where the bone is . Denies SOB and palpitations. Says she hasn't been lightheaded/dizzy since her aneurysm surgery in June 2022. Review of Systems Musculoskeletal: Positive for arthritis, back pain and joint pain. Neurological: Positive for headaches. All other systems reviewed and are negative. [facility] 10-22-2023 Note [facility] CARDIOLOGY PROGR ESS NOTE [...] but denied syncope. States that Neuro-surg at [facility] is planning surgery for aneurysm. Previous [...] 40 mg by mouth at bedtime. omega 4-fyu-pma-fish oil 300-1,000 mg capsule,delayed release(DR/EC) omeprazole (PriLOSEC) [...] 91 91 91 (more content not included)... [facility] 10-22-2023 Note Pt is here for a eig ht month follow up. [facility] 04-25-2023 Evaluation + Plan note Associated Problem(s): Mixed stress and urge urinary incontinence No constipation no dry mouth. Will start her on 5 mg VESIcare. Refer her to Dr. Engle. Certainly made need some urodynamic study as well. Deferred to his evaluation and management. [facility] 04-25-2023 Miscellaneous Notes Associated Problem(s): Mixed stress and urge urinary incontinence No constipation no dry mouth. Will start her on 5 mg VESIcare. Refer her to Dr. Engle. Certainly made need some urodynamic study as well. Deferred to his evaluation and management. documented in this encounter [employer] [facility] 04-25-2023 History of Presen t illness Narrative Images from the original note were not included. [address] [place] [address] A [facility] [id number] Patient: Araceli Francois Date of : 1980 [...] pain Acid reflux Arthritis Asthma Bleeding disorder ([facility]) Factor V(clotting disorder) per patient Cerebral aneurysm Clotting disorder ([facility]) Dental disease Upper dentures, lower partial Depression Dysphagia Endometriosis Factor 5 Leiden mutation, heterozygous ([facility]) Fibromyalgia, primary GERD (gastroesophageal reflux disease) Without esophagitis Hyperlipidemia Hypertension Injury of back Irregular menstruation Leaking of urine Memory loss Menopause Migraine headache Obesity Painful menstruation Pelvic pain Pneumonia Rheumatoid arthritis ([facility]) Seizures ([facility]) 1998 During Septoplasty surgery per chart from [facility]. Sinusitis, chronic Wears partial dentures Past Surgical History: Procedure Laterality Date ADENOIDECTOMY BLADDER SUSPENSION CRANIOTOMY REPAIR ANEURYSM(MCA ANEURYSM CLIPPING) Right 07/05/2022 Performed by Eric Jimenez MD at [facility] CYSTOSCOPY WITH BLADDER IRRIGATION AND [facility] BLADDER SOLUTION N/A 03/19/2023 Performed by Db Rivera MD at [facility] Diagnostic cerebral angiogram N/A 07/06/2022 Performed by Yi Bautista MD at [facility] CARDIAC CATH [facility] Diagnostic cerebral angiogram N/A 01/02/2022 Performed by Yi Bautista MD at [facility] CARDI[facility]ATH [facility] EGD with bx N/A 07/26/2016 Performed by Db Acevedo MD at [facility] ENDOSCOPY ESSURE TUBAL LIGATION FOOT SURGERY Right HYSTERECTOMY 2010 LAPAROSCOPIC CHOLECYSTECTOMY N/A 04/09/2019 Performed by Geovany Bain MD at [facility] NASAL SEPTOPLASTY W/ TURBINOPLASTY OOPHORECTOMY TONSILLECTOMY TOOTH [...] for opioid reversal. 1 each 0 omega 1-bcw-zfg-fish oil (FISH OIL) 300-1,000 mg capsule,delayed release(DR/EC) [...] day. Plan: Renal bladder ultrasound. Cystoscopy urodynamics [facility] bladder solution. Current Assessment & Plan [...] for your understanding. documented in this encounter [employer] [facility] 03-19-2023 Miscellaneous Notes Return the office about 1 month. Please cancel the patient's appointment today for 3:45. documented in this encounter [employer] [facility] 03-19-2023 Telephone encounter Note Return the office about 1 month. Please cancel the patient's appointment today for 3:45. [employer] [facility] Work Phone: 03-16-2023 Nurse Note Preoperative Education Checklist- General Surgery date: 03/19/23 Surgery time: 930a Arrival time: 830a 1. Bring a photo ID and your insurance card with you the day of surgery. You will check in at the main lobby of the [facility]- registration desk is straight ahead as soon as you walk in. Tell them you are here for surgery. 2. If you have a Living Will/Durable Power of Bioanalyst for Health Care that is not on [...] after you have bathed. 5. NO nail ukrainian/acrylic on at least one finger. If you are having a hand, wrist or foot surgery then all nail ukrainian and artificial/acrylic nails must be removed from [...] please call the Preadmission Testing office at [phone], Mon.-Fri. 7 a.m.-3 p.m. Leave a voicemail [...] taking 0 days prior to procedure omega 8-nlk-wnj-fish oil (FISH OIL) 300-1,000 mg capsule,delayed release(DR/EC) Stop taking 0 days prior to procedure omeprazole (PriLOSEC) 40 mg capsule Take morning of procedure rimegepant (NURTEC ODT) 75 mg tablet,disintegrating Stop taking 0 days prior to procedure tiZANidine (ZANAFLEX) 2 mg tablet Stop taking 0 days prior to procedure [facility] [employer] [facility] 03-16-2023 Miscellaneous Notes Preoperative Education Checklist- General Surgery date: 03/19/23 Surgery time: 930a Arrival time: 830a 1. Bring a photo ID and your insurance card with you the day of surgery. You will check in at the main lobby of the [facility]- registration desk is straight ahead as soon as you walk in. Tell them you are here for surgery. 2. If you have a Living Will/Durable Power of Bioanalyst for Health Care that is not on [...] after you have bathed. 5. NO nail ukrainian/acrylic on at least one finger. If you are having a hand, wrist or foot surgery then all nail ukrainian and artificial/acrylic nails must be removed from [...] please call the Preadmission Testing office at [phone], Mon.-Fri. 7 a.m.-3 p.m. Leave a voicemail [...] taking 0 days prior to procedure omega 3-cqt-yld-fish oil (FISH OIL) 300-1,000 mg capsule,delayed release(DR/EC) Stop taking 0 days prior to procedure omeprazole (PriLOSEC) 40 mg capsule Take morning of procedure rimegepant (NURTEC ODT) 75 mg tablet,disintegrating Stop taking 0 days prior to procedure tiZANidine (ZANAFLEX) 2 mg tablet Stop taking 0 days prior to procedure documented in this encounter [facility] 03-01-2023 Evaluation note Encounter Date Diagnosis [...] (suspected) exposure to covid-19 (ICD-10 - Z20.822) [facility] 09-21-2023 Evaluation note* Encounter Date Diagnosis Assessment Notes Treatment Notes Treatment Clinical Notes Oct, GERD (gastroesophageal reflux disease) (ICD-10 - K21.9) Patient reports break through and she will in crease omeprazole 40 mg to BID RTO 6 months Oct, Hiatal hernia (ICD-10 - K44.9) Oct, Schatzki's ring (ICD-10 - K22.2) [facility] 08[facility]08-[facility] NoteCARDIAC STRESS TEST Requesting Physician: Mariel Andre [...] to be dictated by Radiology team separately.[facility] [id number] NoteCONSULTATION CONSULTATION DATE: 01/10/2022 HISTORY OF PRESENT [...] is being seen by Dr. Bautista at [place]. The patient is under the care of [facility] with regards to her migraines. The patient is to have significant workups performed including cardiac. The patient also is to see flex o writer operator, retina specialist. As such, given the [...] again stress the importance of tobacco cessation.[facility] 12-20-2021 NoteCONSULTATION CONSULTATION DATE: 12/20/2021 CHIEF COMPLAINT: Chronic low back pain, left lower extremity pain. HISTORY OF PRESENT ILLNESS: This is a 41-year-old female who was referred to us by Shad Prieto, nurse practitioner, with [facility]. The patient states she has had chronic [...] The patient is being seen by a it senior software engineer java on 02/16/2022, neuropsychiatrist in April of 2022, and she is to [place] [facility] on 01/10/2022. As such, the patient's [...] limited at this point. CC: [facility]ad [facility]eto [facility] noteNo assessment information [facility] Work Phone: Evaluation noteNo InformationNort Locu Other Evaluation note* Diagnosis Mixed stress and urge urinary incontinence- Primary Mixed incontinence urge and stress (male)(female) documented [facility] this [facility] Author Siva You [facility] September 12, 2022 1:37pm Note Date/Time September 12, 2022 1:3 7pm [facility] [address] [place] [address] Gastroenterology H&P Signed Patient: Araceli Francois MR#: [id number] : 1980 Acct:[id number] Age/Sex: 42 / F Adm Date: 3 Loc: Room: Type: [facility] Attending Dr: Siva You MD Copies [...] You MD Documented By: Siva You MD 09/12/22 1336 Signed By: <Electronically signed by Siva You MD> 09/12/22 1337 [facility] Work Phone: History general Narrative - Reported* [...] Surgical History craniotomy Hospitalization History see above [facility] Hospital Discharge instructions Additional Instructions DISCHARGE [...] problems. -Follow up with PCP. -Office number [phone].[facility] Work Phone: InstructionsNot on filedocumented in this encounter [facility] [employer] SystemInstructionsNot on filedocumented in this encounter [facility] Summary Purpose Family History No Family [...] and content) DATE CREATED AUTHOR 08/06/2021 [facility] DATE CREATED AUTHOR AUTHOR'S ORGANIZ ATION 06/08/2022 [facility] DATE CREATED AUTHOR AUTHOR'S ORGANIZ ATION 09/18/2022 [facility] DATE CREATED AUTHOR AUTHOR'S ORGANIZ ATION 02/16/2023 [place] DATE CREATED AUTHOR AUTHOR'S ORGANIZ ATION 04/26/2023 [facility] DATE CREATED AUTHOR AUTHOR'S ORGANIZ ATION 06/03/2023 [facility] DATE CREATED AUTHOR AUTHOR'S ORGANIZ ATION 11/06/2023 [facility] Care Teams (unrecognized sec tion and content) Team Status: Inactive Member Role Status Dates Ron Wallace DO Attending Provider Active NON STAFF Primary Care Provider Active Team Status: Active Member Role Status Dates NON STAFF Primary Care Provider Active Team Status: Inactive Member Role Status Dates NON STAFF Primary Care Provider Active Siva You MD Attending Provider Active Solar Panel Installer Relationship Specialty Start Date End Date Shad Prieto APRN-GYROSCOPE REPAIRER [address] [place] [address] PCP - General Primary Care 12/06/21 Solar Panel Installer Relationship Specialty Start Date End Date Shad Prieto APRN-CNP [address] [place] [address] PCP - General Primary Care 12/06/21 Solar Panel Installer Relationship Specialty Start Date End Date Shad Prieto APRN-GYROSCOPE REPAIRER [address] [place] [address] PCP - General Primary Care 12/06/21 Goals [...] BE BASED ON THE PRIMARY CLINICAL RECORDS. [employer] [facility]. provides no warranty or guarantee of the accuracy or completeness of information in this document.
== END 2023-11-15 11:05 | disposition home or self-care (01) ==
LOC: MAMMO 11:04
DX: Z12.31 Encounter for screening mammogram for malignant neoplasm of breast (principal)
CPT/HCPCS: 77063; 77067

== ENCOUNTER 2024-04-09 07:12 | Emergency (ER) | payer MEDICAID, SELFPAY ==
[2024-04-09 07:15] VITALS: BP 135/95; PULSE 90; TEMP 36.6; O2SAT 98; BMI 41.6
--- OUTSIDE RECORDS SUMMARY | 2024-04-09 07:24 | XMS_ITS | CCD ---
Author Organization [facility] Care Team Providers Care Copper Miner Name Role Phone DO Ron Wallace Attending Provider [phone] NON STAFF Primary Care Provider Unavailabl e [...] WEST, DR MARCE Marion Consulting Unavailable SHAMMO, HSAD Consulting Unavailable GUIDRY ., DR OMAR Benitez [...] Unavailable SHAMMO, SHAD Primary Care Unavailable MISC, DR ALVAREZ Attending Unavailable SHAMMO, SHAD Consulting Unavailable MISC, DOCTOR Primary Care Unavailable MISC, DR ALVAREZ Admitting Unavailable NON STAFF Primary Care Provider UnavailMD Siva De La Garza Attending Provider [phone] Siva You Admitting Unavailable Siva You Attending Unavailable NON STAFF Primary Care Unavailable NON STAFF Primary Care Unavailable Joe Wallace Admitting Unavailab Joe Clarke Attending Unavailab Albaro Joseph Unavailable Kisha Barkley Unavailable DB RIVERA Attending Unavailable SHAMMO, SHAD Referring Unavailable SHAMMO, SHAD Primary Care Unavailable ALICIA VILLARREAL Attending Unavailable VOLODYMYR, BHUMI Referring Unavailable VOLODYMYR, BHUMI Primary Care Unavailable LIZZ GUTIÉRREZ Attending Unavailable SHAMMO, SHAD Referring Unavailable SHAMMO, SHAD Primary Care Unavailable RIVERA, DB Hough Attending Unavailable RIVERA, DB G Referring Unavailable SHAMMO, SHAD Primary Care Unavailable MARLA GAYLE N Referring Unavailable SHAMMO, SHAD Primary Care Unavailable SHAMMO, SHAD Referring Unavailable SHAMMO, SHAD Primary Care Unavailable VOLODYMYR, BHUMI Referring Unavailable VOLODYMYR, BHUMI Primary Care Unavailable GRILLISDB E Admitting Unavailable GRILLIS, DB Griffin Attending Unavailable VOLODYMYR, BHUMI Primary Care Unavailable RIVERADB G Admitting Unavailable RIVERADB Attending Unavailable SHAMMO, SHAD Primary Care Unavailable QUIRINO ANDRE Attending Unavailable MOUKARBELROOSEVELT Attending Unavailable Ngirabakunzi, Kadori Attending Unavailable Ngirabakunzi, Kadori Primary Care Unavailable Allergies Allergy Classification Reported Allergen(s) Allergy Type Date of Onset Reaction(s) Facility (2 sources) DULoxetine Drug Allergy 12-21-19 22 [facility] Repository (5 sources) Leucine; Translations: [NICKEL] Drug Allergy 08-05-19 19 [facility] Repository (4 sources) Penicillin Drug Allergy 05-28-19 21 Unknown [facility] Repository (8 sources) DULoxetine; Translations: [duloxetine] Drug Allergy 12-29-19 Vomiting, Unknown [facility] (9 sources) Naproxen; Translations: [naproxen] Drug Allergy 06-09-19 Rash, Unknown [facility] (6 sources) Penicillins; Translations: [Penicillins] Allergy to substance 03-20-19 Rash [facility] (1 source) Unable to Assess Drug allergy (disorder) 12-21-19 [facility] Repository (3 sources) penicillAMINE Drug Allergy anaphylaxis ScoreGrid [facility] Other (1 source) nickel Drug Allergy anaphylaxis ScoreGrid [facility] Other (1 source) Bee pollen; Translations: [BEE POLLEN] Propensity to adverse reactions to drug (disorder) 01-12-20 [facility] Repository Medications Current Medications Medication Drug Class(es) Dates Sig (Normalized) Sig (Original) Acetaminophen (3 sources) Tylenol prn Acti ve [id number] actuat albuterol 0.09 mg/actuat metered dose inhaler (1 source) beta2-Adrenergic Agonist Start: 03-09-2023 take 2 puff(s) by inhalation every four to six hours as needed Albuterol Sulfate HFA 108 (90 Base) MCG/ACT 2 puffs as needed Inhalation every 4-6 hours for 14 days Mar, Active amitriptyline hydrochloride 25 mg oral tablet (3 sources) Tricyclic Antidepressant take 1 tablet by mouth every twenty-four hours Amitriptyline HCl 25 MG 1 tablet at bedtime Orally Once a day Active atorvastatin 20 mg oral tablet (4 sources) HMG-CoA Reductase Inhibitor Start: 09-12-2022 take 20 mg by mouth once daily Atorvastatin Active 20 MG PO Daily September 12, 2022 12:00am take 1 tablet by roselyn th every twenty-four hours Atorvastatin Calcium 40 MG 1 tablet Oral ly Once a day Active Dicyclomine (3 sources) Anticholinergic Dicyclomine HCl 10mg Active Fish Oils (3 sources) Fish Oil Active losartan potassium 100 mg oral tablet (4 sources) Angiotensin 2 Receptor Estella Start: take 100 mg by mouth once daily Losartan Active 100 MG PO Daily September 12, 2022 12:00am Losartan Potassi um Active methylPREDNISolone 4 mg oral tablet (1 source) Corticosteroid Start: 03-09-2023 methylPREDNISolone 4 MG as directed Orally for 6 Mar, Active [place]-3 Fatty Acids-Fish Oil (1 source) Start: 09-12-2022 take 1 capsule by mouth once daily [place]-3 Fatty Acids-Fish Oil Active 1 CAP PO Daily September 12, 2022 12:00am omeprazole 40 mg delayed release oral capsule (3 sources) Proton Pump Inhibitor Start: 09-12-2022 take 40 mg by mouth once daily Omeprazole Active 40 MG PO Daily September 12, 2022 12:00am oseltamivir 75 mg oral capsule (1 source) Neuraminidase Inhibitor Start: 03-09-2023 take 1 capsule by mouth every twelve hours Oseltamivir Phosphate 75 MG 1 capsule Orally Twice a day for 5 day(s) Mar, Active Problems Active Problems Problem Classification Problem Date Documented Da te Episodic/Chronic Abdominal hernia (1 source) Diaphragmatic hernia without obstruction or gangrene Episodic Administrative/social admission (4 sources) Encounter for disability determination; Translations: [ENCOUTER DISABILITY DETERMINATION] Onset: 3 Episodic Coagulation and hemorrhagic disorders (3 sources) Activated protein C resistance; 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 Disorders of lipid metabolism (6 sources) Hyperlipidemia, unspecified; Translations: [Mixed hyperlipidemia] Onset: 3 Chronic Esophageal disorders (10 sources) Gastroesophageal reflux disease; Translations: [Gastro-esophageal reflux disease without esophagitis] Chronic Essential hypertension (3 sources) Essential (primary) hypertension; Translations: [ESSENTIAL PRIMARY HYPERTENSION] Onset: 2 Chronic Genitourinary symptoms and ill-defined conditions (2 sources) Mixed incontinence; Translations: [Mixed incontinence] Onset: 4 Chronic Immunizations and screening for infectious disease (1 source) Contact with and (suspected) exposure to other viral communicable diseases Episodic Mood disorders (2 sources) Major depressive disorder, single episode, unspecified; Translations: [Major depressive disorder. single episode. unspecified] Onset: 3 Chronic Other and unspecified benign neoplasm (1 source) Polyp of colon; Translations: [Polyp of colon] Onset: 4 Episodic Other diseases of kidney and ureters [...] BMI 40.0-44.9 ADULT] Onset: 2 Chronic Other screening for suspected conditions (not mental disorders or infectious disease) (8 sources) Encounter for screening mammogram for malignant neoplasm of breast; Translations: [Encounter for screening for other suspected endocrine disorder] Onset: 2 Episodic Other upper respiratory infections (4 sources) Acute pharyngitis, unspecified; Translations: [ACUTE PHARYNGITIS UNSPECIFIED] Onset: 3 Episodic Substance-related disorders (1 source) Nicotine dependence, cigarettes, uncomplicated; Translations: [NICOTINE DEPEND CIGARETTES UNCOMP] Onset: 2 Chronic Unclassified (3 sources) LOW BACK PAIN, UNSPECIFIED; Translations: [LOW BACK PAIN, UNSPECIFIED] Onset: 2 Unclassified (1 source) Colon Cancer Screening Onset: 4 Unclassified (1 source) Screening Onset: 4 Past or Other Problems Problem Classification Problem Date Documented Da te Episodic/Chronic Abdominal pain (4 sources) Right upper quadrant pain; Translations: [RIGHT UPPER QUADRANT PAIN] Onset: 12-10-2021 Episodic Intestinal infection (1 source) Viral intestinal infection, unspecified; Translations: [VIRAL INTESTINAL INFECTION UNSPEC] Onset: 08-01-2021 Episodic Nausea and vomiting (3 sources) Nausea with vomiting, unspecified; Translations: [NAUSEA WITH VOMITING UNSPECIFIED] Onset: 07-28-2021 Episodic Nonspecific chest pain (7 sources) Other chest pain; Translations: [OTHER CHEST PAIN] Onset: 12-06-2021 Episodic Other connective tissue disease (4 sources) Fibromyalgia; Translations: [FIBROMYALGIA] Onset: 09-26-2021 Episodic Other connective tissue disease (3 sources) Pain in left hand; Translations: [PAIN IN LEFT HAND] Onset: 09-23-2021 Episodic Other lower respiratory disease (4 sources) Other forms of dyspnea; Translations: [OTHER FORMS OF DYSPNEA] Onset: 01-31-2022 Episodic Other nervous system disorders (1 source) Ataxia, unspecified; Translations: [Ataxia, unspecified] Onset: 12-20-2021 Episodic Unclassified (1 source) LOW BACK PAIN, UNSPECIFIED; Translations: [LOW BACK PAIN, UNSPECIFIED] Onset: 01-10-2022 Unclassified (1 source) Contact with and (suspected) exposure to covid-19 Z20.822 Results Test Name Value Interpretation Reference Range Facility Office Visiton 01-21-2024 Follow-up visit [id number] Jt Francois 1980 F Date Provider Department Center 01/21/2024 [facility] Family History Problem Relation Age of Onset Heart attack Father Heart attack Paternal Grandfather Stroke Paternal Grandfather Family Status - Relation Status Age at Father Paternal Grandfather Level of Service:82292 [place] OFFICE/OUTPATIENT ESTABLISHED MOD MDM 30 MIN Normal [facility] 36on 11-05-2023 36 Concerning cholester ol levels ---- Message ----- From: Quirino Andre NP Sent: 10/30/2023 11:21 AM EDT To: Kayla Crouch MA Subject: RE: Scan So let her know her cholesterol levels are very good, much better than last year with lipitor Normal [facility] Telephoneon 11-05-2023 Telephone [id number] Jt Francois 1980 F Date Provider Department Center 11/05/2023 32626-SELVTHMGALESSAN[facility] [place] Family History Problem Relation Age of Onset Heart attack Father Heart attack Paternal Grandfather Stroke Paternal Grandfather Family Status - Relation Status Age at Father Paternal Grandfather Normal [facility] 37on 10-22-2023 35 Start taking hydrochlorothiazide daily in the morning for blood pressure Please have blood drawn next week to check kidney function and electrolytes and cholesterol level- so you must be fasting for labs Normal [facility] Office Visiton 10-22-2023 Follow-up visit [id number] Jt Francois 1980 F Date Provider Department Center 10/22/2023 QUIRINO GHOTRA Michele [facility] Family History Problem Relation Age of Onset Heart attack Father Heart attack Paternal Grandfather Stroke Paternal Grandfather Family Status - Relation Status Age at Father Paternal Grandfather Level of Service:03734 [place] OFFICE/OUTPATIENT ESTABLISHED LOW MDM 20 MIN Normal [facility] CBC AND AUTO DIFFon 03-12-19 24 ABSOLUTE BASOPHIL 0.1 X10E9/L Normal 0.0-0.2 [facility] Comment on above: Performed By: #### C BCA, CMP #### [facility] ([id number]) [address], [address] [place] [address] ABSOLUTE NEUTROPHIL 5.8 X10E9/L Normal 1.5-6.6 [facility] Comment on above: Performed By: #### C BCA, CMP #### [facility] ([id number]) [address] [facility] [address] [place] [address] Basophils/100 WBC (Bld) 1.0 % Normal [facility] Comment on above: Performed By: #### C BCA, CMP #### [facility] ([id number]) [address] [facility] [facility] [address] [place] [address] Eosinophils (Bld) [#/Vol] 0.2 10*3/uL Normal 0.0-0.4 [facility] Comment on above: Performed By: #### C BCA, CMP #### [facility] ([id number]) [address] [address] [place] [address] Eosinophils/100 WBC (Bld) 2.3 % Normal [facility] Comment on above: Performed By: #### C BCA, CMP #### [facility] ([id number]) [address] [place] [address] Erythrocyte distribution width (RBC) [Ratio] 14.3 % Normal 11.5-15.0 [facility] Comment on above: Performed By: #### C BCA, CMP #### [facility] ([id number]) [address] [place] [address] Hematocrit (Bld) [Volume fraction] 42.2 % Normal 35-47 [facility] Comment on above: Performed By: #### C BCA, CMP #### [facility] ([id number]) [address] [address] [place] [address] Hemoglobin (Bld) [Mass/Vol] 14.4 g/dL Normal 11.7-15.5 [facility] Comment on above: Performed By: #### C BCA, CMP #### [facility] ([id number]) [address] [address] [place] [address] Lymphocytes (Bld) [#/Vol] 2.5 10*3/uL Normal 1.0-3.5 [facility] Comment on above: Performed By: #### C BCA, CMP #### [facility] ([id number]) [address] [place] [address] Lymphocytes/100 WBC (Bld) 27.1 % Normal [facility] Comment on above: Performed By: #### C BCA, CMP #### [facility] ([id number]) [address] [place] [address] MCH (RBC) [Entitic mass] 30.0 pg Normal 27-34 [facility] Comment on above: Performed By: #### C BCA, CMP #### [facility] ([id number]) [address] [address] [place] [address] MCHC (RBC) [Mass/Vol] 34.1 g/dL Normal 32-36 [facility] Comment on above: Performed By: #### C BCA, CMP #### [facility] ([id number]) [address] [place] [address] MCV (RBC) [Entitic vol] 88 fL Normal 80-100 [facility] Comment on above: Performed By: #### C BCA, CMP #### [facility] ([id number]) [address] [place] [address] Monocytes (Bld) [#/Vol] 0.6 10*3/uL Normal 0-0.9 [facility] Comment on above: Performed By: #### C MARIAM, CMP #### [facility] ([id number]) [address] [place] [address] Monocytes/100 WBC (Bld) 6.5 % Normal [facility] Comment on above: Performed By: #### C MARIAM, CMP #### [facility] ([id number]) [address] [place] [address] Neutrophils/100 WBC (Bld) 63.1 % Normal [facility] Comment on above: Performed By: #### C MARIAM, CMP #### [facility] ([id number]) [address] [place] [address] Platelet mean volume (Bld) [Entitic vol] 8.2 fL Normal 7-12 [facility] Comment on above: Performed By: #### C MARIAM, CMP #### [facility] ([id number]) [address] [place] [address] Platelets (Bld) [#/Vol] 296 10*3/uL Normal 150-450 [facility] Comment on above: Performed By: #### C BCA, CMP #### [facility] ([id number]) [address] [place] [address] RBC COUNT 4.80 X10E12/L Normal 3.80-5.20 [facility] Comment on above: Performed By: #### C MARIAM, CMP #### [facility] ([id number]) [address] [place] [address] WBC (Bld) [#/Vol] 9.1 10*3/uL Normal 4.0-11.0 [facility] Comment on above: Performed By: #### C BCA, CMP #### [facility] ([id number]) [address] [place] [address] COMPREHENSIVE METABOLIC PANE Young 03-12-2023 Albumin [Mass/Vol] 3.7 g/dL Normal 3.2-5.3 [facility] Comment on above: Performed By: #### C BCA, CMP #### [facility] ([id number]) [address] [place] [address] ALP [Catalytic activity/Vol] 103 U/L Normal 39-130 [facility] Comment on above: Performed By: #### C BCA, CMP #### [facility] ([id number]) [address] [place] [address] ALT [Catalytic activity/Vol] 12 U/L Normal 0-31 [facility] Comment on above: Performed By: #### C BCA, CMP #### [facility] ([id number]) [address] [place] [address] Anion gap [Moles/Vol] 7 mmol/L Normal 5-15 [facility] Comment on above: Performed By: #### C BCA, CMP #### [facility] ([id number]) [address] [place] [address] AST [Catalytic activity/Vol] 13 U/L Normal 0-41 [facility] Comment on above: Performed By: #### C BCA, CMP #### [facility] ([id number]) [address] [place] [address] Bilirubin [Mass/Vol] 0.8 mg/dL Normal 0.3-1.2 [facility] Comment on above: Performed By: #### C BCA, CMP #### [facility] ([id number]) [address] [place] [address] Calcium [Mass/Vol] 8.7 mg/dL Normal 8.5-10.5 [facility] Comment on above: Performed By: #### C BCA, CMP #### [facility] ([id number]) [address] [place] [address] Chloride [Moles/Vol] 107 mmol/L Normal 98-109 [facility] Comment on above: Performed By: #### C BCA, CMP #### [facility] ([id number]) [address] [place] [address] CO2 [Moles/Vol] 30 mmol/L Normal 22-32 [facility] Comment on above: Performed By: #### C BCA, CMP #### [facility] ([id number]) [address] [place] [address] Creatinine [Mass/Vol] 0.73 mg/dL Normal 0.40-1.00 [facility] Comment on above: Result Comment: METH OD TRACEABLE TO IDMS STANDARD Performed By: #### C BCA, CMP #### [facility] ([id number]) [address] [place] [address] eGFR (CKD-EPI) NON-RACE DEPENDENT >90 Normal >59 [facility] Comment on above: Result Comment: Reported eGFR is based on the CKD-EPI 2020 equation that does not use a race coefficient. Performed By: #### C BCA, CMP #### [facility] ([id number]) [address] [place] [address] Glucose [Mass/Vol] 92 mg/dL Normal 65-99 [facility] Comment on above: Performed By: #### C BCA, CMP #### [facility] ([id number]) [address] [place] [address] Potassium [Moles/Vol] 3.9 mmol/L Normal 3.5-5.0 [facility] Comment on above: Performed By: #### C BCA, CMP #### [facility] ([id number]) [address] [place] [address] Protein [Mass/Vol] 6.4 g/dL Normal 6.0-8.0 [facility] Comment on above: Performed By: #### C BCA, CMP #### [facility] ([id number]) [address] [place] [address] Sodium [Moles/Vol] 144 mmol/L Normal 134-146 [facility] Comment on above: Performed By: #### C BCA, CMP #### [facility] ([id number]) [address] [place] [address] Urea nitrogen [Mass/Vol] 9 mg/dL Normal 5-23 [facility] Comment on above: Performed By: #### C BCA, CMP #### [facility] ([id number]) [address] [place] [address] COVID + FLU Quick Testingon 03-01-2023 SARS-CoV-2 (COVID-19) RNA SARAH+probe Ql (Unsp spec) Negative [facility] Other COVID + FLU Quick Testing Negative [facility] Other CT ABDOMEN W WO CONTon 02-06 [...] Clarke MD on 02/06/2023 4:[address] [facility] 09-12-2022 L --- Specimen: [id number] Received: 09/12/22 [facility] Num: [id number] Spec Type: Surgical Subm Dr: Siva You MD Tissues: A Esophagus Biopsy (ESOPHAGUS BX) Procedures: HE/2, Gross/Micro L4 Age/ Patient Sex Location Account Attending Physician Araceli Francois 42/F [id number] Siva You MD SPEC NUM: [id number] RECD: 09/12/22 STATUS: KASSIDY DELGADOClem NUM: [id number] SHANNON: 09/12/22- [facility] DR: Siva You MD ENTERED: 09/12/[address] [facility] [address]: ALDAIR TYPE: Surgical DEPT: S ORDERED: HE/2, Gross/Micro [...] The microscopic examination confirms the diagnosis. Specimen: [id number] Received: 09/12/22 Status: KASSIDY Camilo Num: [id number] Spec Type: Surgical Subm Dr: Siva You MD Tissues: A Esophagus Biopsy (ESOPHAGUS BX) Procedures: HE/2, Gross/Micro L4 Patient: Francois,Araceli L [id number] (Continued) Specimen: [id number] Received: 09/12/22 (Continued) Signed (signature on file) Rory Jade MD 09/14/22 1155 Specimen: Received: 09/12/22 Status: KASSIDY Camilo Num: [id number] Spec Type: Surgical Subm Dr: Siva You MD Tissues: A Esophagus Biopsy (ESOPHAGUS BX) Procedures: HE/2, Gross/Micro L4 Patient: FrancoisAraceli [id number] (Continued) Specimen: Received: 09/12/22 (Continued) CPT Codes 14513 Specimen: Received: 09/12/22-1125 Status: KASSIDY Camilo Num: [id number] Spec Type: Surgical Subm Dr: Siva You MD Tissues: A Esophagus Biopsy (ESOPHAGUS BX) Procedures: HE/2, Gross/Micro L4 Patient: Araceli Francois [id number] (Continued) Signed (signature on file) Rory Jade MD 09/14/22 1155 Normal [facility] LIPID PROFILEon 04-21-2022 CHOL-HDL RATIO NORM SEE BELOW Normal [facility] Comment on above: Result Comment: 3.3 - 4.4 LOW RISK 4.4 - 7.1 AVERAGE RISK 7.1 - 11.0 MODERATE RISK >11.0 HIGH RISK Performed By: #### L IPID, CMP #### [facility] [address] [address] [address] Edil Gayle Cholesterol [Mass/Vol] 247 mg/dL Critically high <=200 [facility] Comment on above: Performed By: #### L IPID, CMP #### [facility] [address] [address] [address] Edil Gayle Cholesterol in HDL [Mass/Vol] 46 mg/dL Normal 40-60 [facility] Comment on above: Performed By: #### L IPID, CMP #### [facility] [address] [address] [address] Edil Gayle Cholesterol in LDL [Mass/Vol] 180.6 mg/dL Normal [facility] Comment on above: Performed By: #### L IPID, CMP #### [facility] [address] [address] [address] Edil Gayle Cholesterol.total/C holesterol in HDL [Mass ratio] 5.4 {ratio} Normal [facility] Comment on above: Performed By: #### L IPID, CMP #### [facility] [address] [address] [address] Edil Gayle HDL NORMAL > or = 60 mg/dl - LO W CARDIOVASCULAR RISK <40 mg/dl - HIGH CARDIOVASCULAR RISK Normal [facility] Comment on above: Performed By: #### L IPID, CMP #### [facility] [address] [address] [address] Edil Gayle LDL CALC NORMAL SEE BELOW Normal [facility] Comment on above: Result Comment: <100 mg/dl OPTIMAL 100 - 129 mg/dl NEAR OR ABOVE OPTIMAL 130 - 159 mg/dl BORDERLINE HIGH 160 - 189 mg/dl HIGH >190 mg/dl VERY HIGH Performed By: #### L IPID, CMP #### [facility] [address] [address] [address] Edil Gayle Triglyceride [Mass/Vol] 102 mg/dL Normal <=150 [facility] Comment on above: Performed By: #### L IPID, CMP #### [facility] [address] [address] [address] Edil Gayle VLDL CALC 20.4 mg/dL Normal [facility] Comment on above: Performed By: #### L IPID, CMP #### [facility] [address] [address] [address] Edil Gayle PROF 14(COMP METB)on 023 Albumin [Mass/Vol] 3.4 g/dL Normal 3.4-5.0 [facility] Comment on above: Performed By: #### L IPID, CMP #### [facility] [address] [address] [address] Edil Gayle Albumin/Globulin [Mass ratio] 0.9 {ratio} Normal [facility] Comment on above: Performed By: #### L IPID, CMP #### [facility] [address] [address] [address] Edil Gayle ALP [Catalytic activity/Vol] 117 U/L Critically high 46-116 [facility] Comment on above: Performed By: #### L IPID, CMP #### [facility] [address] [address] [address] Edil Gayle ALT [Catalytic activity/Vol] 25 U/L Normal 14-59 [facility] Comment on above: Performed By: #### L IPID, CMP #### [facility] [address] [place] [address] Dr. Edil Gayle Anion gap [Moles/Vol] 11.5 mmol/L Normal [facility] Comment on above: Performed By: #### L IPID, CMP #### [facility] [address] [place] [address] Dr. Edil Gayle AST [Catalytic activity/Vol] 16 U/L Normal 15-37 [facility] Comment on above: Performed By: #### L IPID, CMP #### [facility] [address] [place] [address] Dr. Edil Gayle Bilirubin [Mass/Vol] 0.4 mg/dL Normal 0.2-1.0 [facility] Comment on above: Performed By: #### L IPID, CMP #### [facility] [address] [place] [address] Dr. Edil Gayle Calcium [Mass/Vol] 8.9 mg/dL Normal 8.5-10.1 [facility] Comment on above: Performed By: #### L IPID, CMP #### [facility] [address] [address] [address] Edil Gayle Chloride [Moles/Vol] 106 mmol/L Normal 98-107 [facility] Comment on above: Performed By: #### L IPID, CMP #### [facility] [address] [place] [address] Dr. Edil Gayle CO2 [Moles/Vol] 29.8 mmol/L Normal 21.0-32.0 [facility] Comment on above: Performed By: #### L IPID, CMP #### [facility] [address] [address] [address] Edil Gayle Creatinine [Mass/Vol] 0.58 mg/dL Normal 0.55-1.02 [facility] Comment on above: Performed By: #### L IPID, CMP #### [facility] [address] [address] [address] Edil Gayle EGFR-AF CHINESE >60 Normal >=60 [facility] Comment on above: Performed By: #### L IPID, CMP #### [facility] [address] [address] [address] Edil Gayle EGFR-NON AF CHINESE >60 Normal >=60 [facility] Comment on above: Performed By: #### L IPID, CMP #### [facility] [address] [address] [address] Edil Gayle Globulin (S) [Mass/Vol] 3.6 g/dL Normal [facility] Comment on above: Performed By: #### L IPID, CMP #### [facility] [address] [address] [address] Edil Gayle Glucose [Mass/Vol] 103 mg/dL Normal 74-106 [facility] Comment on above: Performed By: #### L IPID, CMP #### [facility] [address] [address] [address] Edil Gayle Potassium [Moles/Vol] 4.3 mmol/L Normal 3.5-5.1 [facility] Comment on above: Performed By: #### L IPID, CMP #### [facility] [address] [address] [address] Edil Gayle Protein [Mass/Vol] 7.0 g/dL Normal 6.4-8.2 [facility] Comment on above: Performed By: #### L IPID, CMP #### [facility] [address] [place] [address] Dr. Edil Gayle Sodium [Moles/Vol] 143 mmol/L Normal 136-145 [facility] Comment on above: Performed By: #### L IPID, CMP #### [facility] [address] [place] [address] Dr. Edil Gayle Urea nitrogen [Mass/Vol] 12.0 mg/dL Normal 7.0-18.0 [facility] Comment on above: Performed By: #### L IPID, CMP #### [facility] [address] [place] [address] Dr. Edil Gayle Urea nitrogen/Creatinine [Mass ratio] 20.7 mg/mg Normal [facility] Comment on above: Performed By: #### L IPID, CMP #### [facility] [address] [place] [address] Dr. Edil Gayle CULTURE THROATon 04-03-2022 CULTURE THROAT Culture Observations : NORMAL RESPIRATORY JAYLEEN. Normal [facility] Comment on above: Performed By: #### F T4 #### [facility] [address] [place] [address] Dr. Edil Gayle RESPIRATORY PANEL PLUSon Adenovirus Not detected Normal NOT DETECTED [facility] Comment on above: Performed By: #### F T4 #### [facility] [address] [place] [address] Dr. Edil Monte. Parapertusis Not detected Normal NOT DETECTED [facility] Comment on above: Performed By: #### F T4 #### [facility] [address] [place] [address] Dr. Edil Gayle B. Pertussis Not detected Normal NOT DETECTED [facility] Comment on above: Performed By: #### F T4 #### [facility] [address] [place] [address] Dr. Edil Gayle Chlamydia Pneumoniae Not detected Normal NOT DETECTED [facility] Comment on above: Performed By: #### F T4 #### [facility] [address] [place] [address] Dr. Edil Gayle Coronavirus 229E Not detected Normal NOT DETECTED [facility] Comment on above: Performed By: #### F T4 #### [facility] [address] [place] [address] Dr. Edil Gayle Coronavirus HKU1 Not detected Normal NOT DETECTED [facility] Comment on above: Performed By: #### F T4 #### [facility] [address] [address] [address] Edil Gayle Coronavirus NL63 Not detected Normal NOT DETECTED [facility] Comment on above: Performed By: #### F T4 #### [facility] [address] [place] [address] Dr. Edil Gayle Coronavirus OC43 Not detected Normal NOT DETECTED [facility] Comment on above: Performed By: #### F T4 #### [facility] [address] [place] [address] Dr. Edil Gayle Influenza A H1 Not detected Normal NOT DETECTED [facility] Comment on above: Performed By: #### F T4 #### [facility] [address] [place] [address] Dr. Edil Gayle Influenza A H1 2009 Not detected Normal NOT DETECTED [facility] Comment on above: Performed By: #### F T4 #### [facility] [address] [place] [address] Dr. Edil Gayle Influenza A H3 Not detected Normal NOT DETECTED [facility] Comment on above: Performed By: #### F T4 #### [facility] [address] [place] [address] Dr. Edil Gayle Influenza B Not detected Normal NOT DETECTED [facility] Comment on above: Performed By: #### F T4 #### [facility] [address] [place] [address] Dr. Edil Gayle Metapneumovirus Not detected Normal NOT DETECTED [facility] Comment on above: Performed By: #### F T4 #### [facility] [address] [place] [address] Dr. Edil Gayle Mycoplas. Pneumoniae Not detected Normal NOT DETECTED [facility] Comment on above: Performed By: #### F T4 #### [facility] [address] [place] [address] Dr. Edil Gayle Parainfluenza 1 Not detected Normal NOT DETECTED [facility] Comment on above: Performed By: #### F T4 #### [facility] [address] [place] [address] Dr. Edil Gayle Parainfluenza 2 Not detected Normal NOT DETECTED [facility] Comment on above: Performed By: #### F T4 #### [facility] [address] [place] [address] Dr. Edil Gayle Parainfluenza 3 Not detected Normal NOT DETECTED [facility] Comment on above: Performed By: #### F T4 #### [facility] [address] [place] [address] Dr. Edil Gayle Parainfluenza 4 Not detected Normal NOT DETECTED [facility] Comment on above: Performed By: #### F T4 #### [facility] [address] [place] [address] Dr. Edil Gayle Rhino/Enterovirus Not detected Normal NOT DETECTED [facility] Comment on above: Performed By: #### F T4 #### [facility] [address] [place] [address] Dr. Edil Gayle RP2 Header 1 RESPIRATORY PANEL: VIRUSES Normal [facility] Comment on above: Performed By: #### F T4 #### [facility] [address] [place] [address] Dr. Edil Gayle RP2 Header 2 RESPIRATORY PANEL: BACTERIA Normal [facility] Comment on above: Performed By: #### F T4 #### [facility] [address] [place] [address] Dr. Edil Gayle RSV Not detected Normal NOT DETECTED [facility] Comment on above: Performed By: #### F T4 #### [facility] [address] [place] [address] Dr. Edil Gayle SARS-CoV-2 (COVID-19) RNA SARAH+probe Ql (Unsp spec) Not detected Normal NOT DETECTED [facility] Comment on above: Performed By: #### F T4 #### [facility] [address] [place] [address] Dr. Edil Gayle STREPT SCREENon 04-03-2022 STREP SCREEN A Negative Normal NEGATIVE [facility] Comment on above: Performed By: #### F T4 #### [facility] [address], [place] [address] Dr. Edil Gayle ECHOCARDIO M/2D COMPLETEon 1 04-03-2021 ECHOCARDIO M/2D COMPLETE Patient: ARACELI FRANCOIS Exam Date: 01/31/2022 : 1980 Gender:F Ordering : QUIRINO ANDRE Admission #: [id number] Family : Order #: [id number] CLICK HERE TO VIEW EXAM ECHOCARDIOGRAM REPORT [...] Borges M.D. on 02/07/2022 at 09:43 Normal [facility] NM STRESS/REST MULTIon 01-31 NM STRESS/REST MULTI Patient: ARACELI FRANCOIS Exam Date: 01/31/2022 : 1980 Gender:F Ordering : QUIRINO ANDRE Admission #: [id number] Family : Order #: [id number] CLICK HERE TO VIEW EXAM RADIOLOGY REPORT [...] Lyn MD on 02/02/2022 at 11:41 Normal [facility] MR head/brain wo/w conon MR head/brain wo/w [facility] [address] [place] [id number] MRI Report Signed Patient: Araceli Francois MR#: [id number] : 1980 Acct:[id number] Age/Sex: 41 / F ADM Date: 12/20/21 Loc: MR Room: Type: DEP CLI Attending Dr: Ron Wallace DO Copies to: [...] Efrain Chapman M.D.12/21/2021 8:39 AM Dictation Location: [place] [address] Transcribed By: [facility] 12/21/21838 Dictated By: Efrain Chapman II, MD 12/21/21815 Signed By: 12/21/21838 [facility] XR LSPINE W_OBLS AND FLEX_EX Ton [...] MARCE LYN Date: 2021-12-21 07:11 Normal [facility] US SINGLE QUAD RT UPPERon US [...] MARCE LYN Date: 2021-12-11 08:32 Normal [facility] XR CHEST 2 Von 12-06-2021 XR [...] MARCE LYN Date: 2021-12-06 15:35 Normal [facility] MG MAMM SCREEN 3D TISHA CADon 11-08-2021 MG MAMM SCREEN 3D TISHA CAD Patient: ARACELI FRANCOIS Exam Date: 11/08/2021 : 1980 Gender:F Ordering : SHAD [employer] Admission #: [id number] Family : Order #: [id number] CLICK HERE TO VIEW EXAM RADIOLOGY REPORT PROCEDURE: MAMMOGRAM SCREENING 3D BILATERAL CAD COMPARISON: MG MAMM SCREEN 3D TISHA CAD, 07/19/2020. INDICATIONS: Screening mammography Calculator Name NCI Breast Cancer Risk Assessment Tool 5 Year Breast Cancer Risk 0.50% Lifetime Breast Cancer Risk 6.50% Personal Breast Cancer No Personal Ovarian Cancer No Treatments None Family Cancers None LOCATION: [facility] BREAST COMPOSITION: Scattered areas fibroglandular density. [...] MD on 11/09/2021 at 07:53 Normal [facility] CBC AUTO DIFFon 11-01-2021 BASO # 0.1 103/ul Normal 0.0-0.1 [facility] Comment on above: Performed By: #### F T4 #### [facility] [address] [place] [address] Dr. Edil Gayle Basophils/100 WBC (Bld) 1.2 % Normal 0.2-2.0 [facility] Comment on above: Performed By: #### F T4 #### [facility] [address] [place] [address] Dr. Edil Gayle EO # 0.3 103/ul Normal 0.0-0.7 [facility] Comment on above: Performed By: #### F T4 #### [facility] [address] [place] [address] Dr. Edil Gayle Eosinophils/100 WBC (Bld) 2.7 % Normal 0.9-7.0 [facility] Comment on above: Performed By: #### F T4 #### [facility] [address] [place] [address] Dr. Edil Gayle Erythrocyte distribution width (RBC) [Ratio] 12.8 % Normal 11.0-15.0 [facility] Comment on above: Performed By: #### F T4 #### [facility] [address] [place] [address] Dr. Edil Gayle Hematocrit (Bld) [Volume fraction] 46.5 % Normal 36.0-48.0 [facility] Comment on above: Performed By: #### F T4 #### [facility] [address] [place] [address] Dr. Edil Gayle Hemoglobin (Bld) [Mass/Vol] 15.5 g/dL Normal 12.0-16.0 [facility] Comment on above: Performed By: #### F T4 #### [facility] [address] [place] [address] Dr. Edil Gayle IG # 0.02 10e3/ul Normal 0.00-0.03 [facility] Comment on above: Performed By: #### F T4 #### [facility] [address] [place] [address] Dr. Edil Gayle IG % 0.2 % Normal 0.0-0.5 [facility] Comment on above: Performed By: #### F T4 #### [facility] [address] [place] [address] Dr. Edil Gayle LYMPH # 2.1 103/ul Normal 1.2-3.8 [facility] Comment on above: Performed By: #### F T4 #### [facility] [address] [place] [address] Dr. Edil Gayle Lymphocytes/100 WBC (Bld) 20.4 % Critically low 20.5-60.0 [facility] Comment on above: Performed By: #### F T4 #### [facility] [address] [place] [address] Dr. Edil Gayle MANUAL DIFF REQ NO Normal [facility] Comment on above: Performed By: #### F T4 #### [facility] [address] [place] [address] Dr. Edil Gayle MCH (RBC) [Entitic mass] 30.3 pg Normal 26.7-34.0 [facility] Comment on above: Performed By: #### F T4 #### [facility] [address] [place] [address] Dr. Edil Gayle MCHC (RBC) [Mass/Vol] 33.3 g/dL Normal 29.9-35.2 [facility] Comment on above: Performed By: #### F T4 #### [facility] [address] [address] [address] Edil Gayle MCV (RBC) [Entitic vol] 90.8 fL Normal 81.0-99.0 [facility] Comment on above: Performed By: #### F T4 #### [facility] [address] [address] [address] Edil Gayle MONO # 0.5 103/ul Normal 0.3-0.8 [facility] Comment on above: Performed By: #### F T4 #### [facility] [address] [place] [address] Dr. Edil Gayle Monocytes/100 WBC (Bld) 5.2 % Normal 1.7-12.0 [facility] Comment on above: Performed By: #### F T4 #### [facility] [address] [address] [address] Edil Gayle NEUT # 7.3 103/ul Critically high 1.4-6.5 [facility] Comment on above: Performed By: #### F T4 #### [facility] [address] [place] [address] Dr. Edil Gayle Neutrophils/100 WBC (Bld) 70.3 % Normal 43.0-75.0 [facility] Comment on above: Performed By: #### F T4 #### [facility] [address] [address] [address] Edil Gayle Platelet mean volume (Bld) [Entitic vol] 8.8 fL Critically low 9.5-13.5 [facility] Comment on above: Performed By: #### F T4 #### [facility] [address] [place] [address] Dr. Edil Gayle PLT 294 103/ul Normal 150-450 [facility] Comment on above: Performed By: #### F T4 #### [facility] [address] [place] [address] Dr. Edil Gayle RBC 5.12 106/ul Normal 4.20-5.40 [facility] Comment on above: Performed By: #### F T4 #### [facility] [address] [place] [address] Dr. Edil Gayle WBC 10.3 103/ul Normal 4.0-11.0 [facility] Comment on above: Performed By: #### F T4 #### [facility] [address] [address] [address] Edil Gayle FREE T4on 11-01-2021 Free T4 [Mass/Vol] 0.88 ng/dL Normal 0.76-1.46 [facility] Comment on above: Performed By: #### F T4 #### [facility] [address] [place] [address] Dr. Edil Gayle GLYCOHEMOGLOBIN A1Con 2021 ADA RECOMMENDATION SEE BELOW Normal [facility] Comment on above: Result Comment: ADA RECOMMENDED LIMIT 4.0 - 6.0 ADA THERAPEUTIC TARGET < 7.0 ACTION SUGGESTED > 7.0 Performed By: #### A 1C #### [facility] [address] [place] [address] Dr. Edil Gayle Glucose [Mass/Vol] 108 mg/dL Normal [facility] Comment on above: Performed By: #### A 1C #### [facility] [address] [place] [address] Dr. Edil Gayle HbA1c (Bld) [Mass fraction] 5.4 % Normal 4.5-6.2 [facility] Comment on above: Performed By: #### A 1C #### [facility] [address] [place] [address] Dr. Edil Gayle LIPID PROFILEon 11-01-2021 CHOL-HDL RATIO NORM SEE BELOW Normal [facility] Comment on above: Result Comment: 3.3 - 4.4 LOW RISK 4.4 - 7.1 AVERAGE RISK 7.1 - 11.0 MODERATE RISK >11.0 HIGH RISK Performed By: #### T SH, CMP, LIPID #### [facility] [address] [place] [address] Dr. Edil Gayle Cholesterol [Mass/Vol] 246 mg/dL Critically high <=200 [facility] Comment on above: Performed By: #### T SH, CMP, LIPID #### [facility] [address] [address] [address] Edil Gayle Cholesterol in HDL [Mass/Vol] 48 mg/dL Normal 40-60 [facility] Comment on above: Performed By: #### T SH, CMP, LIPID #### [facility] [address] [address] [address] Edil Gayle Cholesterol in LDL [Mass/Vol] 172.6 mg/dL Normal [facility] Comment on above: Performed By: #### T SH, CMP, LIPID #### [facility] [address] [place] [address] Dr. Edil Gayle Cholesterol.total/C holesterol in HDL [Mass ratio] 5.1 {ratio} Normal [facility] Comment on above: Performed By: #### T SH, CMP, LIPID #### [facility] [address] [address] [address] Edil Gayle HDL NORMAL > or = 60 mg/dl - LO W CARDIOVASCULAR RISK <40 mg/dl - HIGH CARDIOVASCULAR RISK Normal [facility] Comment on above: Performed By: #### T SH, CMP, LIPID #### [facility] [address] [place] [address] Dr. Edil Gayle LDL CALC NORMAL SEE BELOW Normal [facility] Comment on above: Result Comment: <100 mg/dl OPTIMAL 100 - 129 mg/dl NEAR OR ABOVE OPTIMAL 130 - 159 mg/dl BORDERLINE HIGH 160 - 189 mg/dl HIGH >190 mg/dl VERY HIGH Performed By: #### T SH, CMP, LIPID #### [facility] [address] [address] [address] Edil Gayle Triglyceride [Mass/Vol] 127 mg/dL Normal <=150 [facility] Comment on above: Performed By: #### T SH, CMP, LIPID #### [facility] [address] [address] [address] Edil Gayle VLDL CALC 25.4 mg/dL Normal [facility] Comment on above: Performed By: #### T SH, CMP, LIPID #### [facility] [address] [address] [address] Edil Gayle PROF 14(COMP METB)on 022 Albumin [Mass/Vol] 3.6 g/dL Normal 3.4-5.0 [facility] Comment on above: Performed By: #### T SH, CMP, LIPID #### [facility] [address] [address] [address] Edil Gayle Albumin/Globulin [Mass ratio] 1.0 {ratio} Normal [facility] Comment on above: Performed By: #### T SH, CMP, LIPID #### [facility] [address] [address] [address] Edil Gayle ALP [Catalytic activity/Vol] 109 U/L Normal 46-116 [facility] Comment on above: Performed By: #### T SH, CMP, LIPID #### [facility] [address] [address] [address] Edil Gayle ALT [Catalytic activity/Vol] 21 U/L Normal 14-59 [facility] Comment on above: Performed By: #### T SH, CMP, LIPID #### [facility] [address] [address] [address] Edil Gayle Anion gap [Moles/Vol] 10.9 mmol/L Normal [facility] Comment on above: Performed By: #### T SH, CMP, LIPID #### [facility] [address] [address] [address] Edil Gayle AST [Catalytic activity/Vol] 15 U/L Normal 15-37 [facility] Comment on above: Performed By: #### T SH, CMP, LIPID #### [facility] [address] [address] [address] Edil Gayle Bilirubin [Mass/Vol] 0.8 mg/dL Normal 0.2-1.0 [facility] Comment on above: Performed By: #### T SH, CMP, LIPID #### [facility] [address] [address] [address] Edil Gayle Calcium [Mass/Vol] 9.3 mg/dL Normal 8.5-10.1 [facility] Comment on above: Performed By: #### T SH, CMP, LIPID #### [facility] [address] [place] [address] Dr. Edil Gayle Chloride [Moles/Vol] 104 mmol/L Normal 98-107 [facility] Comment on above: Performed By: #### T SH, CMP, LIPID #### [facility] [address] [place] [address] Dr. Edil Gayle CO2 [Moles/Vol] 30.6 mmol/L Normal 21.0-32.0 [facility] Comment on above: Performed By: #### T SH, CMP, LIPID #### [facility] [address] [place] [address] Dr. Edil Gayle Creatinine [Mass/Vol] 0.77 mg/dL Normal 0.55-1.02 [facility] Comment on above: Performed By: #### T SH, CMP, LIPID #### [facility] [address] [place] [address] Dr. Edil Gayle EGFR-AF CHINESE >60 Normal >=60 [facility] Comment on above: Performed By: #### T SH, CMP, LIPID #### [facility] [address] [place] [address] Dr. Edil Gayle EGFR-NON AF CHINESE >60 Normal >=60 [facility] Comment on above: Performed By: #### T SH, CMP, LIPID #### [facility] [address] [place] [address] Dr. Edil Gayle Globulin (S) [Mass/Vol] 3.7 g/dL Normal [facility] Comment on above: Performed By: #### T SH, CMP, LIPID #### [facility] [address] [place] [address] Dr. Edil Gayle Glucose [Mass/Vol] 106 mg/dL Normal 74-106 [facility] Comment on above: Performed By: #### T SH, CMP, LIPID #### [facility] [address] [place] [address] Dr. Edil Gayle Potassium [Moles/Vol] 4.5 mmol/L Normal 3.5-5.1 [facility] Comment on above: Performed By: #### T SH, CMP, LIPID #### [facility] [address] [place] [address] Dr. Edil Gayle Protein [Mass/Vol] 7.3 g/dL Normal 6.4-8.2 [facility] Comment on above: Performed By: #### T SH, CMP, LIPID #### [facility] [address] [place] [address] Dr. Edil Gayle Sodium [Moles/Vol] 141 mmol/L Normal 136-145 [facility] Comment on above: Performed By: #### T SH, CMP, LIPID #### [facility] [address] [place] [address] Dr. Edil Gayle Urea nitrogen [Mass/Vol] 11.0 mg/dL Normal 7.0-18.0 [facility] Comment on above: Performed By: #### T SH, CMP, LIPID #### [facility] [address] [place] [address] Dr. Edil Gayle Urea nitrogen/Creatinine [Mass ratio] 14.3 mg/mg Normal [facility] Comment on above: Performed By: #### T SH, CMP, LIPID #### [facility] [address] [place] [address] Dr. Edil Gayle TSHon 11-01-2021 TSH 2.620 uIU/mL Normal 0.358-3.740 [facility] Comment on above: Performed By: #### T SH, CMP, LIPID #### [facility] [address] [place] [address] Dr. Edil Gayle CBC AUTO DIFFon 07-28-2021 BASO # 0.1 103/ul Normal 0.0-0.1 [facility] Comment on above: Performed By: #### C BC #### [facility] [address] [place] [address] Dr. Edil Gayle Basophils/100 WBC (Bld) 1.0 % Normal 0.2-2.0 [facility] Comment on above: Performed By: #### C BC #### [facility] [address] [place] [address] Dr. Edil Gayle EO # 0.3 103/ul Normal 0.0-0.7 [facility] Comment on above: Performed By: #### C BC #### [facility] [address] [place] [address] Dr. Edil Gayle Eosinophils/100 WBC (Bld) 2.9 % Normal 0.9-7.0 [facility] Comment on above: Performed By: #### C BC #### [facility] [address] [place] [address] Dr. Edil Gayle Erythrocyte distribution width (RBC) [Ratio] 13.0 % Normal 11.0-15.0 [facility] Comment on above: Performed By: #### C BC #### [facility] [address] [place] [address] Dr. Edil Gayle Hematocrit (Bld) [Volume fraction] 46.3 % Normal 36.0-48.0 [facility] Comment on above: Performed By: #### C BC #### [facility] [address] [place] [address] Dr. Edil Gayle Hemoglobin (Bld) [Mass/Vol] 15.4 g/dL Normal 12.0-16.0 [facility] Comment on above: Performed By: #### C BC #### [facility] [address] [place] [address] Dr. Edil Gayle IG # 0.03 10e3/ul Normal 0.00-0.03 [facility] Comment on above: Performed By: #### C BC #### [facility] [address] [place] [address] Dr. Edil Gayle IG % 0.3 % Normal 0.0-0.5 [facility] Comment on above: Performed By: #### C BC #### [facility] [address] [place] [address] Dr. Edil Gayle LYMPH # 2.4 103/ul Normal 1.2-3.8 [facility] Comment on above: Performed By: #### C BC #### [facility] [address] [place] [address] Dr. Edil Gayle Lymphocytes/100 WBC (Bld) 22.4 % Normal 20.5-60.0 [facility] Comment on above: Performed By: #### C BC #### [facility] [address] [place] [address] Dr. Edil Gayle MANUAL DIFF REQ NO Normal [facility] Comment on above: Performed By: #### C BC #### [facility] [address] [place] [address] Dr. Edil Gayle MCH (RBC) [Entitic mass] 30.9 pg Normal 26.7-34.0 [facility] Comment on above: Performed By: #### C BC #### [facility] [address] [place] [address] Dr. Edil Gayle MCHC (RBC) [Mass/Vol] 33.3 g/dL Normal 29.9-35.2 [facility] Comment on above: Performed By: #### C BC #### [facility] [address] [place] [address] Dr. Edil Gayle MCV (RBC) [Entitic vol] 93.0 fL Normal 81.0-99.0 [facility] Comment on above: Performed By: #### C BC #### [facility] [address] [place] [address] Dr. Edil Gayle MONO # 0.7 103/ul Normal 0.3-0.8 [facility] Comment on above: Performed By: #### C BC #### [facility] [address] [place] [address] Dr. Edil Gayle Monocytes/100 WBC (Bld) 6.9 % Normal 1.7-12.0 [facility] Comment on above: Performed By: #### C BC #### [facility] [address] [place] [address] Dr. Edil Gayle NEUT # 7.1 103/ul Critically high 1.4-6.[address] [facility] Comment on above: Performed By: #### C BC #### [facility] [address] [place] [address] Dr. Edil Gayle Neutrophils/100 WBC (Bld) 66.5 % Normal 43.0-75.0 [facility] Comment on above: Performed By: #### C BC #### [facility] [address] [place] [address] Dr. Edil Gayle Platelet mean volume (Bld) [Entitic vol] 9.4 fL Critically low 9.5-13.5 [facility] Comment on above: Performed By: #### C BC #### [facility] [address] [place] [address] Dr. Edil Gayle PLT 247 103/ul Normal 150-450 [facility] Comment on above: Performed By: #### C BC #### [facility] [address] [place] [address] Dr. Edil Gayle RBC 4.98 106/ul Normal 4.20-5.40 [facility] Comment on above: Performed By: #### C BC #### [facility] [address] [place] [address] Dr. Edil Gayle WBC 10.7 103/ul Normal 4.0-11.0 [facility] Comment on above: Performed By: #### C BC #### [facility] [address] [place] [address] ABD/PELV W CONon [...] MICHELLE HENRY Date: 2021-07-28 11:03 Normal [facility] ER URINE PROFILEon 2 Bilirubin Ql (U) Negative Normal NEGATIVE [facility] Comment on above: Performed By: #### E RUR #### [facility] [address] [place] [address] Dr. Edil Gayle Clarity (U) CLEAR Normal CLEAR [facility] Comment on above: Performed By: #### E RUR #### [facility] [address] [place] [address] Dr. Edil Gayle Color (U) YELLOW Normal YELLOW [facility] Comment on above: Performed By: #### E RUR #### [facility] [address] [place] [address] Dr. Edil NAQVI A micrscopic examination will be performed if indicated. Normal [facility] Comment on above: Performed By: #### E RUR #### [facility] [address] [place] [address] Dr. Edil Gayle Glucose Ql (U) Negative Normal NEGATIVE [facility] Comment on above: Performed By: #### E RUR #### [facility] [address] [place] [address] Dr. Edil Gayle Hemoglobin Ql (U) Negative Normal NEGATIVE The [facility] Comment on above: Performed By: #### E RUR #### [facility] [address] [place] [address] Dr. Edil Gayle Ketones Ql (U) Negative Normal NEGATIVE [facility] Comment on above: Performed By: #### E RUR #### [facility] [address] [place] [address] Dr. Edil Gayle LEUKOCYTES Negative Normal NEGATIVE [facility] Comment on above: Performed By: #### E RUR #### [facility] [address] [place] [address] Dr. Edil Gayle Nitrite Ql (U) Negative Normal NEGATIVE [facility] Comment on above: Performed By: #### E RUR #### [facility] [address] [place] [address] Dr. Edil Gayle pH (U) 6.0 [pH] Normal 5-9 [facility] Comment on above: Performed By: #### E RUR #### [facility] [address] [place] [address] Dr. Edil Gayle SPEC GRAVITY 1.030 Abnormal 1.005-<=1.02 5 [facility] Comment on above: Performed By: #### E RUR #### [facility] [address] [place] [address] Dr. Edil Gayle UA PROTEIN Negative Normal NEGATIVE/ TRACE [facility] Comment on above: Performed By: #### E RUR #### [facility] [address] [place] [address] Dr. Edil Gayle UR MICRO IND NOT INDICATED Normal [facility] Comment on above: Performed By: #### E RUR #### [facility] [address] [place] [address] Dr. Edil Gayle Urobilinogen Qn (U) 0.2 {Tee'U}/dL Normal 0.2 - 1. 0 [facility] Comment on above: Performed By: #### E RUR #### [facility] [address] [place] [address] Dr. Edil Gayle PROF CHEM 8 (BAS METB)on Anion gap [Moles/Vol] 9.8 mmol/L Normal [facility] Comment on above: Performed By: #### F T4 #### [facility] [address] [place] [address] Dr. Edil Gayle Calcium [Mass/Vol] 8.4 mg/dL Critically low 8.5-10.[address] [facility] Comment on above: Performed By: #### F T4 #### [facility] [address] [place] [address] Dr. Edil Gayle Chloride [Moles/Vol] 106 mmol/L Normal 98-107 [facility] Comment on above: Performed By: #### F T4 #### [facility] [address] [address] [address] Edil Gayle CO2 [Moles/Vol] 29.1 mmol/L Normal 21.0-32.0 [facility] Comment on above: Performed By: #### F T4 #### [facility] [address] [address] [address] Edil Gayle Creatinine [Mass/Vol] 0.78 mg/dL Normal 0.55-1.02 [facility] Comment on above: Performed By: #### F T4 #### [facility] [address] [address] [address] Edil Gayle EGFR-AF CHINESE >60 Normal >=60 [facility] Comment on above: Performed By: #### F T4 #### [facility] [address] [place] [address] Dr. Edil Gayle EGFR-NON AF CHINESE >60 Normal >=60 [facility] Comment on above: Performed By: #### F T4 #### [facility] [address] [address] [address] Edil Gayle Glucose [Mass/Vol] 89 mg/dL Normal 74-106 [facility] Comment on above: Performed By: #### F T4 #### [facility] [address] [address] [address] Edil Gayle Potassium [Moles/Vol] 3.9 mmol/L Normal 3.5-5.1 [facility] Comment on above: Performed By: #### F T4 #### [facility] [address] [address] [address] Edil Gayle Sodium [Moles/Vol] 141 mmol/L Normal 136-145 [facility] Comment on above: Performed By: #### F T4 #### [facility] [address] [address] [address] Edil Gayle Urea nitrogen [Mass/Vol] 12.0 mg/dL Normal 7.0-18.0 [facility] Comment on above: Performed By: #### F T4 #### [facility] [address] [address] [address] Edil Gayle Urea nitrogen/Creatinine [Mass ratio] 15.4 mg/mg Normal [facility] Comment on above: Performed By: #### F T4 #### [facility] [address] [address] [address] Edil Gayle ANAon 11-22-2020 RAFIA PATTERN SPECKLED Normal [facility] Comment on above: Result Comment: The [...] authority. Performed By: #### 1 0196 #### [facility] [address] RAFIA SCREEN 1:80 Abnormal <1:40,1:40 [facility] Comment on above: Result Comment: Test performed using JOSE C IFA RAFIA Hep-2 Test, a pre-standardized assay designed for the qualitative and semi-quantitative detection of antinuclear antibodies. Performed By: #### 1 0196 #### [facility] [address] C REACTIVE PROTEINon 021 CRP [Mass/Vol] 1.9 mg/L Normal 0.0-7.0 [facility] Comment on above: Performed By: #### 9 9744, 83854, 91510 #### [facility] [address] [place] [address], [facility] CBC W/DIFFon 11-22-2020 ABS IMM GRANS 0.0 10*3/uL Normal 0.0-0.2 [facility] Comment on above: Performed By: #### 5 0103, 65011 #### [facility] [address] [place] [address], [facility] ABS NEUTROPHILS 10.1 10*3/uL High 1.6-7.6 [facility] Comment on above: Performed By: #### 5 102, 04344 #### [facility] [address] [place] [address], [facility] Basophils (Bld) [#/Vol] 0.1 10*3/uL Normal 0.0-0.2 [facility] Comment on above: Performed By: #### 5 102, 82922 #### [facility] [address] [place] [address], [facility] Basophils/100 WBC (Bld) 0.8 % Normal 0.0-1.0 [facility] Comment on above: Performed By: #### 5 102, 89689 #### [facility] [address] [facility] [place] [address], [facility] Eosinophils (Bld) [#/Vol] 0.2 10*3/uL Normal 0.0-0.5 [facility] Comment on above: Performed By: #### 102, 57347 #### [facility] [address] [facility] [place] [address], [facility] Eosinophils/100 WBC (Bld) 1.2 % Normal 0.0-6.0 [facility] Comment on above: Performed By: #### 5 102, 85276 #### [facility] [address] [facility] [place] [address], [facility] Erythrocyte distribution width (RBC) [Ratio] 13.2 % Normal 11.5-15.0 [facility] Comment on above: Performed By: #### 5 102, 21892 #### [facility] [address] [facility] [place] [address], [facility] Hematocrit (Bld) [Volume fraction] 47.8 % High 36.0-45.0 [facility] Comment on above: Performed By: #### 102, 14479 #### [facility] [address] [place] [address], [facility] Hemoglobin (Bld) [Mass/Vol] 16.1 g/dL High 12.0-15.0 [facility] Comment on above: Performed By: #### 5 102, 85823 #### [facility] [address] [place] [address], [facility] IMMATURE GRANS 0.3 % Normal 0.0-1.0 [facility] Comment on above: Performed By: #### 5 102, 05900 #### [facility] [address] [facility] [place] [address], [facility] Lymphocytes (Bld) [#/Vol] 2.3 10*3/uL Normal 1.2-4.0 [facility] Comment on above: Performed By: #### 5 102, 59249 #### [facility] [address] [facility] [place] [address], [facility] Lymphocytes/100 WBC (Bld) 17.1 % Low 20.0-45.0 [facility] Comment on above: Performed By: #### 5 102, 81480 #### [facility] [address] [facility] [place] [address], [facility] MCH (RBC) [Entitic mass] 30.8 pg Normal 27.0-33.0 [facility] Comment on above: Performed By: #### 5 102, 18337 #### [facility] [address] [facility] [place] [address], [facility] MCHC (RBC) [Mass/Vol] 33.7 g/dL Normal 32.0-35.0 [facility] Comment on above: Performed By: #### 5 102, 42186 #### [facility] [address] [facility] [place] [address], [facility] MCV (RBC) [Entitic vol] 91.4 fL Normal 82.0-98.0 [facility] Comment on above: Performed By: #### 5 102, 26426 #### [facility] [address] [place] [address], [facility] Monocytes (Bld) [#/Vol] 0.7 10*3/uL Normal 0.1-1.0 [facility] Comment on above: Performed By: #### 5 102, 56605 #### [facility] [address] [place] [address], [place] MONOS 5.0 % Normal 5.0-12.0 [facility] Comment on above: Performed By: #### 5 102, 81286 #### [facility] [address] [place] [id number], [facility] Neutrophils/100 WBC (Bld) 75.6 % High 40.0-72.0 [facility] Comment on above: Performed By: #### 5 102, 80279 #### [facility] [address] [facility] [place] [id number], [facility] Nucleated RBC/100 WBC (Bld) [Ratio] 0 % Normal 0-0 [facility] Comment on above: Performed By: #### 5 102, 05678 #### [facility] [address] [facility] [place] [id number], [facility] PLAT CNT 303 10*3/uL Normal 150-400 [facility] Comment on above: Performed By: #### 5 102, 98601 #### [facility] [address] [place] [address], [facility] RBC (Bld) [#/Vol] 5.23 10*6/uL High 3.80-5.00 [facility] Comment on above: Performed By: #### 5 102, 94324 #### [facility] [address] [place] [address], [place] WBC (Bld) [#/Vol] 13.31 10*3/uL High 4.00-10.60 [facility] Comment on above: Performed By: #### 5 0103, 70475 #### [address] [place]CLIC [place] [id number] 11-22-2020 CYCLIC CIT PEP 4 Units Normal 0-19 The [facility] Comment on above: Result Comment: INTE [...] be monitored and testing repeated. Performed By: [employer] [address] [place] [address] Boat Tender: Olga Duval MD HAND LEFT 3 [facility] 11-22-2020 HAND LEFT 3 S [facility] Department of Radiology [address] [place] [phone] ===== Patient Name: ARACELI FRANCOIS : 1980 Sex: F Age: Race: White Pt. Location: [facility] Patient Status: D Ordered Date: 11/22/2020 10:50:00 AM Completed Date: 11/22/2020 10:54 AM Requesting Provider: DANYA ROTHMAN Attending Provider: DANYA ROTHMAN Report Copy To: Signs & Symptoms: M25.50 Pain in unspecified joint I10 History: Roe Comments: Evaluate Exam: HAND LEFT 3 VWS ===== HAND LEFT 3 S 11/22/2020 10:54 [...] abnormality. Early findings of osteoarthritis. Electronically signed: Serafin Gates. Transcribed by: [email or web address], User Resident: Electronically Signed by: SERAFIN GATES @ 11/23/2020 09:30 AM Normal [facility] Comment on above: Order Comment: Evalu ate HAND RIGHT 3 Son HAND RIGHT 3 [facility] Department of Radiology [address] [place] [phone] ===== Patient Name: ARACELI FRANCOIS : 1980 Sex: F Age: Race: White Pt. Location: [facility] Patient Status: D Ordered Date: 11/22/2020 10:50:00 AM Completed Date: 11/22/2020 10:54 AM Requesting Provider: DANYA ROTHMAN Attending Provider: DANYA ROTHMAN Report Copy To: Signs & Symptoms: M25.50 Pain in unspecified joint I10 History: Lissette Comments: Evaluate Exam: HAND RIGHT 3 VWS ===== HAND RIGHT 3 S 11/22/2020 10:54 [...] osteoarthritis. Approved by:Josiane Fletcher11/23/2020 9:43 AM. I, Serafin Gates,have reviewed the image(s) and agree with the findings in this report. Electronically signed: Serafin Gates. Transcribed by: [email or web address], User Resident: JOSIANE LAWRENCE Electronically Signed by: SERAFIN GATES @ 11/23/2020 12:29 PM I personally read this/these film(s) with this resident Normal [facility] Comment on above: Order Comment: Evalu ate IMMUNOGLOB BLon 11-22-2020 IgA [Mass/Vol] 410 mg/dL Normal 60-413 [facility] Comment on above: Performed By: #### 9 9744, 45125, [address] #### [place] [address], [facility] IgG [Mass/Vol] 908 mg/dL Normal 591-1540 [facility] Comment on above: Performed By: #### 9 9744, 89350, 88026 #### [facility] [address] IgM [Mass/Vol] 58 mg/dL Normal 54-285 [facility] Comment on above: Performed By: #### 9 9744, 53370, 68079 #### [facility] [address] [facility] [address] RHEUMATOID FACTOR SERUMon RA <20 Normal 0-20 [facility] Comment on above: Performed By: #### 9 9744, 08281, 44458 #### [facility] [address] [facility] [address] SEDIMENTATION RATEon 021 SED RATE 4 mm/hr Normal 0-20 [facility] Comment on above: Performed By: #### 5 0103, 58392 #### [facility] [address] [facility] [address] t cell subset analysison CD3 % 86.24 % Normal 65.00-90.00 [facility] Comment on above: Order Comment: This test was developed and its performance characteristics determined by the [facility]. It has not been cleared or approved by the U.S. Food and Drug Administration. Performed By: #### 9 0116 #### [facility] [address] [facility]. [address] CD3 ABSOLUTE 1963 cells/mm3 Normal 760-2130 The [facility] Comment on above: Order Comment: This test was developed and its performance characteristics determined by the [facility]. It has not been cleared or approved by the U.S. Food and Drug Administration. Performed By: #### 9 0116 #### [facility] [address] [place] [address], [facility] CD4 % 67.10 % Normal 40.00-70.00 [facility] Comment on above: Order Comment: This test was developed and its performance characteristics determined by the [facility]. It has not been cleared or approved by the U.S. Food and Drug Administration. Performed By: #### 9 0116 #### [facility] [address] CD4 ABSOLUTE 1527 cells/mm3 High 430-1185 The [facility] Comment on above: Order Comment: This test was developed and its performance characteristics determined by the [facility]. It has not been cleared or approved by the U.S. Food and Drug Administration. Performed By: #### [id number] #### [facility] [address] CD4:CD8 RATIO 3.79 Normal 1.00-4.00 [facility] Comment on above: Order Comment: This test was developed and its performance characteristics determined by the [facility]. It has not been cleared or approved by the U.S. Food and Drug Administration. Performed By: #### [id number] #### [facility] [address] CD8 % 17.70 % Normal 15.00-40.00 [facility] Comment on above: Order Comment: This test was developed and its performance characteristics determined by the [facility]. It has not been cleared or approved by the U.S. Food and Drug Administration. Performed By: #### [id number] #### [facility] [address] CD8 ABSOLUTE 403 cells/mm3 Normal 180-865 [facility] Comment on above: Order Comment: This test was developed and its performance characteristics determined by the [facility]. It has not been cleared or approved by the U.S. Food and Drug Administration. Performed By: #### [id number] #### [facility] [address] Vital Signs Date Time Vital Sign Value Performing Clinician Facility 03-01-2023 14:45-0500 Body height 162.56 cm Kisha Barkley Other [facility] Other 03-01-2023 14:45-0500 Body mass index (BMI) [Ratio] 42.05 kg/m2 Kisha Bakrley Other [facility] Other 03-01-2023 14:45-0500 Body temperature 97.5 [degF] Kisha Barkley Other [facility] Other 03-01-2023 14:45-0500 Body weight 111.13 kg Kisha Barkley Other [facility] Other 03-01-2023 14:45-0500 Respiratory rate 18 /min Kisha Barkley Other [facility] Other 03-01-2023 14:45-0500 SaO2% (BldA) [Mass fraction] 99 % Kisha Barkley Other [facility] Other 10-26-2022 09:00-0400 Body height 162.56 cm Albaro Wilson Other [facility] Other 10-26-2022 09:00-0400 Body mass index (BMI) [Ratio] 43.25 kg/m2 Albaro Wilson Other [facility] Other 10-26-2022 09:00-0400 Body weight 114.31 kg Albaro Wilson Other [facility] Other 10-26-2022 09:00-0400 Diastolic blood pressure 80 mm[Hg] Albaro Wilson Other [facility] Other 10-26-2022 09:00-0400 Systolic blood pressure 122 mm[Hg] Albaro Wilson Other [place] Other 09-12-2022 14:20-0400 Diastolic blood pressure 70 mm[Hg] [facility] 09-12-2022 14:20-0400 Heart rate 70 /min [facility] 09-12-2022 14:20-0400 Respiratory rate 16 /min [facility] 09-12-2022 14:20-0400 SaO2% (BldA) [Mass fraction] 97 % [facility] 09-12-2022 14:20-0400 Systolic blood pressure 131 mm[Hg] [facility] 09-12-2022 12:54-0400 Body height 162.56 cm [facility] 09-12-2022 12:54-0400 Body temperature 98.2 [degF] [facility] 09-12-2022 12:54-0400 Body weight 113.39 kg [facility] Encounters Encounter Date Encounter Type Care Provider Facility Start: 01-21-2024 End: 01-21-2024 [facility] Start: 12-31-2023 End: 12-31-2023 Evaluation and management of inpatient DB Elias CLARA [facility] Start: 12-25-2023 End: 12-25-2023 ambulatory BHUMI HELM [facility] Start: 12-05-2023 End: 12-05-2023 ambulatory ALICIA VILLARREAL [facility] Start: 10-22-2023 End: 10-22-2023 ambulatory QUIRINO ANDRE [facility] Start: 06-01-2023 End: 06-01-2023 ambulatory LIZZ GUTIÉRREZ [facility] Start: 04-25-2023 End: 04-25-2023 ambulatory DB Hough [facility] Start: 03-19-2023 End: 03-19-2023 Evaluation and management of inpatient DB Hough NICOLE [facility] Start: 03-16-2023 End: 03-16-2023 ambulatory SHAD SHAMMO [facility] Start: 03-12-2023 End: 03-12-2023 ambulatory LIZZ GUTIÉRREZ [facility] Start: 03-01-2023 End: 03-01-2023 ambulatory Kisha Barkley Other [facility] Other Start: 03-01-2023 Office outpatient visit 25 minutes Kisha Barkley [facility] Start: 02-06-2023 End: 02-06-2023 ambulatory DB RIVERA [facility] Start: 10-26-2022 End: 10-26-2022 ambulatory Albaro Wilson Other [facility] Other Start: 10-26-2022 Office outpatient visit 15 minutes Albaro Wlison [facility] Start: 09-19-2022 End: 09-19-2022 ambulatory Albaro Wilson Other [facility] Other Start: 09-19-2022 Telephone encounter [facility] Start: 09-12-2022 End: 09-12-2022 ambulatory Siva You Facility:[facility] Start: 09-12-2022 End: 09-12-2022 Admission to same day surgery center [facility] Work Phone: Start: 09-12-2022 End: 09-12-2022 ambulatory NON STAFF [facility] Work Phone: Start: 06-30-2022 End: 02-14-2023 ambulatory Greyson Lincoln Start: 06-07-2022 ambulatory SHAD SHAMMO Facility:[facility] 1 Start: 04-21-2022 End: 04-22-2022 ambulatory SHAD SHAMMO Facility:[facility] Start: 04-03-2022 End: 04-03-2022 ambulatory SHAD SHAMMO Facility:[facility] Start: 01-31-2022 End: 02-01-2022 ambulatory QUIRINO JES Facility:[facility] Start: 01-10-2022 End: 01-11-[address] OMAR GUIDRY . Facility:[facility] Start: 12-20-2021 End: 12-20-2021 ambulatory NON STAFF Facility:[facility] Start: 12-20-2021 End: 12-20-2021 ambulatory NON STAFF [facility] Work Phone: Start: 12-20-2021 End: 12-20-2021 Patient encounter procedure DO Ron Wallace Work Phone: [facility] [place] Start: 12-20-2021 End: 12-21-[address] OMAR GUIDRY . Facility:[facility] Start: 12-10-2021 End: 12-11-2021 ambulatory SHAD SHAMMO Facility:[facility] Start: 12-06-2021 End: 12-07-2021 ambulatory SHAD SHAMMO Facility:[facility] Start: 11-08-2021 End: 11-09-2021 ambulatory SHAD SHAMMO Facility:[facility] Start: 11-03-2021 Encounter for genera l adult medical examination without abnormal findings DR DOCTOR HORNER [facility] Start: 11-01-2021 End: 11-02-[address] DOCTOR HORNER Facility:[facility] Start: 11-01-2021 End: 11-02-2021 Encounter for general adult medical examination without abnormal findings DR DOCTOR HORNER Facility:[facility] Start: 09-23-2021 End: 09-23-[address] CASSY DODSON . Facility:[facility] Start: 07-28-2021 End: 07-28-2021 ambulatory IRAM ROTH Facility:[facility] Procedures Date Procedure Procedure Detail Performing Clinician Start: 06-01-2023 Follow-up visit Follow-up LIZZ GUTIÉRREZ Start: 09-12-2022 Esophagogastroduodenoscopy Plan of Treatment Date Care Activity Detail Author Start: 09-12-2022 [facility] Start: 12-20-2021 MR Unspecified body region [facility] Start: 12-20-2021 MRI of head MR head/brain wo/w con [facility] Patient Education Hiatal Hernia (DC) [facility] Work Phone: Payers Date Payer Category Payer Medicaid [id number] 2021 Self-pay [id number] 1980 Unknown [id number] 2.16.84 0.1.185656.3.579.2.593 1978 Unknown [id number] 2.16.84 0.1.244659.3.579.2.593 1978 Unknown [id number] 2.16.84 0.1.379286.3.579.2.593 1978 Unknown [id number] .16.84 0.1.749537.3.579.2.593 1978 Unknown [id number] .16.84 0.1.542593.3.579.2.593 1978 Unknown [id number] .16.84 0.1.334991.3.579.2.593 1978 Unknown [id number] .16.84 0.1.142778.3.579.2.593 1978 Unknown [id number] .16.84 0.1.916607.3.579.2.593 1978 Unknown [id number] .16.84 0.1.094512.3.579.2.593 1978 Unknown [id number] .16.84 0.1.233076.3.579.2.593 1978 Unknown [id number] .16.84 0.1.135828.3.579.2.593 1978 Unknown [id number] .16.84 0.1.802207.3.579.2.593 1978 Unknown [id number] .16.84 0.1.141362.3.579.2.593 1978 Unknown [id number] 2.16.8 40.1.626575.3.579.2.1286 1978 Unknown [id number] 2.16.8 40.1.431302.3.579.2.1285 1978 Unknown [id number] 2.16.8 40.1.953255.3.579.2.1285 1978 Unknown [id number] 2.16.8 40.1.074114.3.579.2.1285 1978 Unknown [id number] 2.16.8 40.1.467087.3.579.2.1285 1978 Unknown [id number] 2.16.8 40.1.845739.3.579.2.1285 1978 Unknown [id number] 2.16.8 40.1.830530.3.579.2.1285 1978 Unknown [id number] 2.16.8 40.1.742573.3.579.2.1285 1978 Unknown [id number] 2.16.84 0.1.082516.3.579.2.1286 1961 Medicaid [id number] Unknown [id number] 2.16.8 40.1.340637.3.579.2.531 Unknown [id number] 2.16.8 40.1.741906.3.579.2.531 Social History Date Type Detail Facility Tobacco smoking status [facility] Unknown if ever smoked [facility] Work Phone: Start: 1980 Sex Assigned At Female F [facility] Start: 09-12-2022 Tobacco smoking status PRIS Smoker (finding) [facility] Sex Assigned At Sex Assigned At [facility] Other Goals Date Patient Goal Desired Activity /State Clinical Notes 12-20-2021 to 01-21-2024 Note Date & Type Note Facility 01-21-2024 Note [facility] Subjective Araceli Lakhwinder Beto is a 43 y.o. year old female patient being seen for 3 mo follow up atypical chest pain, hypertension, hyperlipidemia and Factor V Leiden mutation. Had labs with lipid panel back in Oct 2023 after last apt. Says she gets chest pain once in a great while and thinks it's musculoskeletal. Denies SOB, palpitations, and lightheadedness/syncope. Patient Active Problem List Diagnosis Chronic illness Fibromyalgia Complex posttraumatic stress disorder Calculus of gallbladder without cholecystitis without obstruction Cerebral aneurysm Dysphagia Endometriosis Factor 5 Leiden mutation, heterozygous (CMS/HCC) Gastroesophageal reflux disease Migraine Seizures (CMS/HCC) Atypical chest pain MCKEON (dyspnea on exertion) Essential hypertension Mixed hyperlipidemia Family history of cerebrovascular accident (CVA) due to aneurysm Mixed incontinence Mixed stress and urge urinary incontinence Hypothyroid Status post hysterectomy Family History Problem Relation Name Age of Onset Heart attack Father Heart attack Paternal Grandfather Stroke Paternal Grandfather Social History Tobacco Use Smoking status: Every Day Current packs/day: 0.25 Average packs/day: 0.3 packs/day for 30.0 years (7.5 ttl pk-yrs) Types: Cigarettes Smokeless tobacco: Never Substance Use Topics Alcohol use: Never Drug use: Never HPI She is seen in follow-up. This is the first time I am meeting her. She is a 43-year-old woman with history of hypertension, hyperlipidemia, heterozygous for factor V [place], history of cerebral aneurysm status post clipping, fibromyalgia, previously evaluated in cardiology clinic for atypical chest pain with negative stress test and echocardiogram. she denies chest pain, shortness of breath, palpitations, dizziness, syncope and leg edema. There is no claudication. She is a current smoker. Review of Systems Respiratory: Positive for cough. Musculoskeletal: Positive for arthritis, back pain and joint pain. Neurological: Positive for headaches. All other systems reviewed and are negative. Objective Visit Vitals BP 120/78 (BP Location: Left arm, Patient Position: Sitting) Pulse 99 Ht 1.626 m (5' 4 ) Wt 113 kg (249 lb) SpO2 97% BMI 42.74 kg/m??? Smoking Status Every Day BSA 2.26 m??? Physical Exam Constitutional: Appearance: She is well-developed. She is obese. She is not ill-appearing. HENT: Head: Normocephalic and atraumatic. Nose: Nose normal. Eyes: General: No scleral icterus. Pupils: Pupils are equal, round, and reactive to light. Neck: Thyroid: No thyromegaly. Vascular: No JVD. Cardiovascular: Rate and Rhythm: Normal rate and regular rhythm. Pulses: Radial pulses are 2+ on the right side and 2+ on the left side. Heart sounds: Normal heart sounds. No murmur heard. No friction rub. No gallop. Pulmonary: Effort: Pulmonary effort is normal. No respiratory distress. Breath sounds: Normal breath sounds. No wheezing or rales. Chest: Chest wall: No tenderness. Abdominal: General: Bowel sounds are normal. There is no distension. Palpations: Abdomen is soft. Tenderness: There is no abdominal tenderness. Musculoskeletal: General: No swelling. Cervical back: Neck supple. Skin: General: Skin is warm and dry. Neurological: General: No focal deficit present. Mental Status: She is alert and oriented to person, place, and time. Psychiatric: Mood and Affect: Mood normal. Behavior: Behavior is cooperative. Judgment: Judgment normal. Allergies Allergies Allergen Reactions Penicillins Hives, Shortness of breath and Rash Bee Pollen Other Duloxetine GI intolerance Naproxen Hives Nickel Medications Current Outpatient Medications: amitriptyline (Elavil) 25 mg tablet, TAKE 1 TABLET BY MOUTH at 8pm, Disp: 21 tablet, Rfl: 0 amLODIPine (Norvasc) 10 mg tablet, Take 1 tablet (10 mg) by mouth once daily as directed., Disp: 90 tablet, Rfl: 3 atorvastatin (Lipitor) 40 mg tablet, Take 1 tablet (40 mg) by mouth at bedtime., Disp: 90 tablet, Rfl: 3 losartan (Cozaar) 100 mg tablet, Take 1 tablet (100 mg) by mouth once daily as directed., Disp: 90 tablet, Rfl: 3 omega 4-irv-gyr-fish oil 300-1,000 mg capsule,delayed release(DR/EC), , Disp: , Rfl: omeprazole (PriLOSEC) [address] capsule, TAKE 1 CAPSULE BY MOUTH 30 MINUTES BEFORE morning meal, Disp: , Rfl: ProAir HFA 90 mcg/actuation inhaler, INHALE 1 PUFF BY MOUTH NEEDED EVERY 4 HOURS, Disp: , Rfl: solifenacin (VESIcare) 5 mg tablet, Take 1 tablet (5 mg) by mouth in the morning., Disp: , Rfl: Recent Labs No visits with results within 6 Month(s) from this visit. Latest known visit with results is: [facility] Encounter on 11/22/2020 Component Date Value Antinuclear Antibodies (* 11/22/2020 1:80 (A) RAFIA Pattern 11/22/2020 SPECKLED 04/21/22- renal function normal, liver function stable Chol (more content not included)... [facility] 10-22-2023 Note Today states that sh e is out of elavil and does not have appt with PCP until Nov 09- therefore will prescribed short 3 week script to fill [facility] 10-22-2023 Note F/U with PCP as scheduled Andrea lundy [facility] 10-22-2023 Note Lipid abnormalities are stable, continue lipitor 40 mg daily [facility] 10-22-2023 Note Hypertension is stab le and well controlled Continue hydrochlorothiazide, losartan, norvasc [facility] 10-22-2023 Note Currently resolved [facility] 10-22-2023 Note Pt is here for a eig ht month follow up. [facility] 10-22-2023 Note Patient here for 1.5 year follow up hypertension. Still has pain under her right breast, where the bone is . Denies SOB and palpitations. Says she hasn't been lightheaded/dizzy since her aneurysm surgery in June 2022. Review of Systems Musculoskeletal: Positive for arthritis, back pain and joint pain. Neurological: Positive for headaches. All other systems reviewed and are negative. [facility] 10-22-2023 Note [facility] ESS [...] but denied syncope. States that Neuro-surg at [facility] is planning surgery for aneurysm. Previous [...] 40 mg by mouth at bedtime. omega 2-eia-mgq-fish oil 300-1,000 mg capsule,delayed release(DR/EC) omeprazole (PriLOSEC) [...] 91 91 91 (more content not included)... [facility] 03-01-2023 Evaluation note Encounter Date Diagnosis [...] (suspected) exposure to covid-19 (ICD-10 - Z20.822) [facility] Other 09-21-2023 Evaluation note* Encounter Date Diagnosis Assessment Notes Treatment Notes Treatment Clinical Notes Oct, GERD (gastroesophageal reflux disease) (ICD-10 - K21.9) Patient reports break through and she will in crease omeprazole 40 mg to BID RTO 6 months Oct, Hiatal hernia (ICD-10 - K44.9) Oct, Schatzki's ring (ICD-10 - K22.2) [facility] Note[facility]ARDIAC STRESS TEST Requesting Physician: Mariel [...] to be dictated by Radiology team separately.[facility] [id number] NoteCONSULTATION CONSULTATION DATE: 01/10/2022 HISTORY OF PRESENT [...] is being seen by Dr. Bautista at [facility]. The patient is under the care of RAFIA with regards to her migraines. The patient is to have significant workups performed including cardiac. The patient also is to see envelope sealing machine operator, retina specialist. As such, given the [...] again stress the importance of tobacco cessation.[facility] 12-20-2021 NoteCONSULTATION CONSULTATION DATE: 12/20/2021 CHIEF COMPLAINT: Chronic low back pain, left lower extremity pain. HISTORY OF PRESENT ILLNESS: This is a 41-year-old female who was referred to us by Shad Prieto, nurse practitioner, with [facility]. The patient states she has [...] The patient is being seen by a insole lip turner on 02/16/2022, neuropsychiatrist in April of 2022, and she is to [facility] on 01/10/2022. As such, the patient's [...] limited at this point. CC: Shad Prieto [facility] noteNo assessment information availableMercy [facility] Work Phone: Evaluation noteNo InformationN[place] Other History and physical note Author Siva You [facility] September 12, 2022 1:37pm Note Date/Time September 12, 2022 1:3 7pm [facility] [address] [place] [address] Gastroenterology H&P Signed Patient: Araceli Francois MR#: [id number] : 1980 Acct:[id number] Age/Sex: 42 / F Adm Date: 3 Loc: Room: Type: [facility] Attending Dr: Siva You MD Copies to: [...] MD Documented By: Siva You MD 09/12/22 1334 Signed By: <Electronically signed by Siva You MD> 09/12/22 1337 [facility] Work Phone: History general Narrative - Reported* [...] Surgical History craniotomy Hospitalization History see above [facility] Other Hospital Discharge instructions Additional Instructions DISCHARGE [...] problems. -Follow up with PCP. -Office number [phone].[facility] Work Phone: Summary Purpose Family History No Family History [...] Advance Directives No December 14, 2021 4:45pm Chief Complaint and Reason for Visit Chief Complaint r27.0 Chief Complaint EOE, GERD Additional Source Comments INFORMATION SOURCE (unrecogn ized section and content) DATE CREATED AUTHOR 08/06/2021 [facility] DATE CREATED AUTHOR AUTHOR'S ORGANIZ ATION 06/08/2022 [facility] DATE CREATED AUTHOR AUTHOR'S ORGANIZ ATION 09/18/2022 [facility] DATE CREATED AUTHOR AUTHOR'S ORGANIZ ATION 12/06/2023 [facility] DATE CREATED AUTHOR AUTHOR'S ORGANIZ ATION 01/02/2024 [facility] DATE CREATED AUTHOR AUTHOR'S ORGANIZ ATION 01/23/2024 [facility] DATE CREATED AUTHOR AUTHOR'S ORGANIZ ATION 02/21/2024 [facility] Teams (unrecognized sec tion and content) Team Status: Inactive Member Role Status Dates Ron M Rodrigo , DO Attending Provider Active NON STAFF Primary Care Provider Active Team Status: Active Member Role Status Dates NON STAFF Primary Care Provider Active Team Status: Inactive Member Role Status Dates NON STAFF Primary Care Provider Active Siva You MD Attending Provider Active Goals (unrecognized section and content) Goals may be documented in a n alternate sectionNo InformationNo InformationNo Information REASON FOR VISIT (unrecogniz ed section and [...] BE BASED ON THE PRIMARY CLINICAL RECORDS. [employer] provides no warranty or guarantee of the accuracy or completeness of information in this document.
--- NOTE | 2024-04-09 07:58 | ED.GENADUL1 ---
HPI HPI - General Adult General Chief complaint: Extremity Problem, Nontraumatic Stated complaint: SWELLING IN RIGHT FOOT Time Seen by Provider: 04/09/24 07:30 Source: patient Mode of arrival: walk-in History of Present Illness HPI narrative: Patient present to the ER complaining of right toe pain. Patient states that she started and it woke her up at night and her whole foot was throbbing. She said she had shooting pains but most of the pain is coming from the joint in the right toe. She said it kind of radiates over to the second toe as well. No history of gout. No history of trauma to the toe or the foot. No fevers no redness. She said she does have a history of a spider bite in that foot but does not think she got bit by anything this time but she is unsure. No calf pain. No shortness of breath. Patient states this just happened out of the blue and she did not injure her foot at all. Related Data Home Medications ?Medication ?Instructions ?Recorded ?Confirmed amitriptyline 25 mg tablet 25 mg PO DAILY 04/09/24 04/09/24 amlodipine 10 mg tablet 10 mg PO DAILY 04/09/24 04/09/24 atorvastatin 40 mg tablet 40 mg PO DAILY 04/09/24 04/09/24 hydrochlorothiazide 25 mg tablet 25 mg PO DAILY 04/09/24 04/09/24 losartan 100 mg tablet 100 mg PO DAILY 04/09/24 04/09/24 omega-3 fatty acids-fish oil 300 1 cap PO DAILY 04/09/24 04/09/24 mg-1,000 mg capsule omeprazole 40 mg capsule,delayed 40 mg PO BID 04/09/24 04/09/24 release Previous Rx's ?Medication ?Instructions ?Recorded colchicine 0.6 mg capsule 0.6 mg PO DAILY #7 caps 04/09/24 hydrocodone 5 mg-acetaminophen 325 1 tab PO Q6H PRN pain #14 tabs 04/09/24 mg tablet methylprednisolone 4 mg tablets in 4 mg PO DAILY #21 ea 04/09/24 a dose pack (Medrol (Nabeel)) Allergies Allergy/AdvReac Type Severity Reaction Status Date / Time Penicillins Allergy Intermediate Verified 08/03/22 18:53 duloxetine (From Cymbalta) AdvReac Intermediate Verified 09/19/22 08:34 naproxen (From EC-Naproxen) AdvReac Intermediate Verified 08/03/22 18:53 nickel AdvReac Uncoded 08/03/22 18:53 Opioid HPI Opioid Management Most Recent Opioid Data: No Data to Display Review of Systems ROS Status of ROS 10 or more systems reviewed and unremarkable except as noted in history and [facility] Social History Smoking status: Current every day smoker Little interest or pleasure in doing things: not at all Feeling down, depressed, or hopeless: not at all Exam Narrative Exam Narrative: General: alert, no acute distress Cardiovascular: regular rate and rhythm, normal peripheral perfusion. Respiratory: Lungs CTA, respirations non labored. Extremities: no deformity, no trauma. Mild swelling at the right great toe joint. Pain with range of motion of the right great toe. Normal distal pulses. No calf pain or edema. Neurological: oriented x 4, LOC appropriate for age. Constitutional Vital Signs, click to edit/add: Last Vital Signs Temp 98 F 04/09/24 07:15 Pulse 90 04/09/24 07:15 Resp 18 04/09/24 07:15 BP 135/95 H 04/09/24 07:15 Pulse Ox 98 04/09/24 07:15 O2 Del Method Room Air 04/09/24 07:15 Course Vital Signs Vital signs: Vital Signs Temperature 98 F 04/09/24 07:15 Pulse Rate 90 04/09/24 07:15 Respiratory Rate 18 04/09/24 07:15 Blood Pressure 135/95 H 04/09/24 07:15 Pulse Oximetry 98 04/09/24 07:15 Oxygen Delivery Method Room Air 04/09/24 07:15 Temperature 98 F 04/09/24 07:15 Pulse Rate 90 04/09/24 07:15 Respiratory Rate 18 04/09/24 07:15 Blood Pressure 135/95 H 04/09/24 07:15 Pulse Oximetry 98 04/09/24 07:15 Oxygen Delivery Method Room Air 04/09/24 07:15 Medical Decision Making MDM Narrative Medical decision making narrative: History and presentation most consistently aligns with a diagnosis of gout. Patient was treated as if this is a gout diagnosis. At this time I do not see any evidence of cellulitis. There is been no history of trauma. Patient will be started on colchicine and prednisone as well as pain medication. Patient was instructed to follow-up with her family doctor to start allopurinol after her acute gout calms down. Return to ED if worsening symptoms. Follow-up with family doctor. Patient comfortable care plan for home. Differential Diagnosis Differential Diagnosis: Gout, trauma, cellulitis Discharge Plan Discharge Chief Complaint: Extremity Problem, Nontraumatic Clinical Impression: Gout Patient Disposition: Home, Self-Care Time of Disposition Decision: 07:41 Condition: Good Mode of Transportation: Private Vehicle Prescriptions / Home Meds: New colchicine 0.6 mg capsule 0.6 mg PO DAILY Qty: 7 0RF Rx Instructions: take one tab at first sign of gout. take one daily x 3 days after that hydrocodone-acetaminophen 5-325 mg tablet 1 tab PO Q6H PRN (Reason: pain) Qty: 14 0RF methylprednisolone [Medrol (Nabeel)] 4 mg tablets,dose pack 4 mg PO DAILY Qty: 21 0RF Rx Instructions: disp one nabeel use as directed No Action atorvastatin 40 mg tablet 40 mg PO DAILY omeprazole 40 mg capsule,delayed release(DR/EC) 40 mg PO BID amitriptyline 25 mg tablet 25 mg PO DAILY amlodipine 10 mg tablet 10 mg PO DAILY hydrochlorothiazide 25 mg tablet 25 mg PO DAILY losartan 100 mg tablet 100 mg PO DAILY omega-3 fatty acids-fish oil 300-1,000 mg capsule 1 cap PO DAILY Print Language: Scottish Instructions: Gout (ED) Referrals: Physician,Non-Staff, MD [Primary Care Provider] - 1 week Discharge Date/Time: 04/09/24 07:56
== END 2024-04-09 07:56 | disposition home or self-care (01) ==
PROVIDERS: Emergency Provider Emergency Medicine
DX: M10.9 Gout, unspecified (principal); F17.200 Nicotine dependence, unspecified, uncomplicated
CPT/HCPCS: 99283

== ENCOUNTER 2024-06-24 16:12 | Emergency (ER) | payer MEDICAID, SELFPAY ==
--- OUTSIDE RECORDS SUMMARY | 2019-09-16 07:00 | XMS_ITS | Continuity of Care Document ---
Author Organization [facility] Address [address] [facility] [place] [address] Phone Care Team Providers Care Financial Management Name Role Phone Arps DNP LEAD ELECTRICAL ENGINEER MILIEU TECHNICIAN-BC, Elvira Unavailable Ann Marie vailable Allergies, Adverse Reactions, Alerts Substance Reaction Status Criticality nickel swelling Active No Information DULOXETINE HCL Active No Informatio n nortriptyline depressed Active No Information Penicillins SOB and rash Active No Information Medications Medication Instructions Dosage Effective Dates (start - stop) Status Comments Advil 100 mg chewable tablet chew 2 tablet by oral route every 4 - 6 hours as needed with food as needed - Active orphenadrine citrate ER 100 mg tablet,extended release take 1 tablet by oral route 2 times every day in the morning and evening as needed 100 MG - Active prednisone 20 mg tablet take 1 tablet by oral route every day 20 MG - No Longer Active Nicoderm CQ 14 mg/24 hr daily transdermal patch apply 1 patch by transdermal route every day 14 MG - No Longer Active Vitamin D3 2,000 unit tablet Take one tablet daily - No Longer Active Vitamin D2 50,000 unit capsule take 1 capsule by oral route every week for 6 weeks - No Longer Active Claritin 10 mg tablet take 1 tablet by oral route every day 10 MG - No Longer Active Procedures Procedure Date OFFICE/OUTPATIENT VISIT, EST OFFICE/OUTPATIENT VISIT, EST ROUTINE VENIPUNCTURE OFFICE/OUTPATIENT VISIT, EST OFFICE/OUTPATIENT VISIT, EST OFFICE/OUTPATIENT VISIT, EST STREP A ASSAY W/OPTIC OFFICE/OUTPATIENT VISIT, EST OBTAINING PAP SMEAR PREV VISIT, EST, AGE 18-39 MEDICAL RECORDS RELEASED SHAVE SKIN LESION SHAVE SKIN LESION Surgical trays Surgical trays Surgical trays REMOVAL OF SKIN TAGS OFFICE/OUTPATIENT VISIT, EST OFFICE/OUTPATIENT VISIT, EST PREV VISIT, EST, AGE 18-39 OFFICE/OUTPATIENT VISIT, EST OFFICE/OUTPATIENT VISIT, EST ROUTINE VENIPUNCTURE PREV VISIT, EST, AGE 18-39 OBTAINING PAP SMEAR MEDICAL RECORDS RELEASED OFFICE/OUTPATIENT VISIT, EST MEDICAL RECORDS RELEASED OFFICE/OUTPATIENT VISIT, EST OFFICE/OUTPATIENT VISIT, EST STREP A ASSAY W/OPTIC OFFICE/OUTPATIENT VISIT, EST MEDICAL RECORDS RELEASED OFFICE/OUTPATIENT VISIT, EST OFFICE/OUTPATIENT VISIT, EST ROUTINE VENIPUNCTURE OFFICE/OUTPATIENT VISIT, EST Doc meds verified w/pt or re ROUTINE VENIPUNCTURE PREV VISIT, EST, AGE 18-39 OFFICE/OUTPATIENT VISIT, EST OFFICE/OUTPATIENT VISIT, EST OFFICE CONSULTATION BEHAV CHNG SMOKING 3-10 MIN OFFICE/OUTPATIENT VISIT, EST OFFICE/OUTPATIENT VISIT, EST ROUTINE VENIPUNCTURE OFFICE/OUTPATIENT VISIT, EST STREP A ASSAY W/OPTIC OFFICE/OUTPATIENT VISIT, EST OFFICE/OUTPATIENT VISIT, EST OFFICE/OUTPATIENT VISIT, EST OFFICE/OUTPATIENT VISIT, EST No Charge Miscellaneous EXC TR-EXT B9+KAJAL 0.6-1 CM Office/outpatient visit,est, mod 2011 OFFICE/OUTPATIENT VISIT, EST Infcts antign, streptococcus Grp A Office/outpatient visit,est, mod 2011 OFFICE/OUTPATIENT VISIT, EST STREP A ASSAY W/OPTIC Office/outpatient visit,est, mod 2010 Office/outpatient visit,est, mod 2010 Screening Papanicolaou Smear Preventive checkup, est,18-39 yrs Office/outpatient visit,est, mod 2010 Office/outpatient visit,est, mod 2006 Office/outpatient visit,est, mod 2006 Office/outpatient visit,est, mod 2006 Urinalysis, automated, w/o scope 2006 Office/outpatient visit,est, mod 2006 Screening Papanicolaou Smear Office/outpatient visit,est, mod 2006 Urine test Injection Depo Provera 150mg/ml 006 Office/outpatient visit,est, low 2005 Advance Directives Directive Yes / No Effective Date File Name No Information Encounters Encounter Description Practice Location Reason(s) For Visit Diagnoses Date Provider Providers Copied on Encounter OFFICE/OUTPAT IENT VISIT, EST [facility], [address] [facility] [address], [place], [place], [address] , [place] tel:[phone] [facility] Sciatica (chief complaint) Acute right-sided low back pain with right-sided sciatica 0 Angela GLEASON APRN MILIEU TECHNICIAN-BC Elvira. [address] [place] [address] B, [place], [place], [id number], [place]. [phone] Referring Provider: Elvira Miller DNP, APRN MILIEU TECHNICIAN-HERNAN, [address], [place], [address]. tel:[phone] OFFICE/OUTPAT IENT VISIT, [employer] [facility], [address] [place] [address] [address], [place], [id number] , [place] tel: [phone] [facility] Bite(s) (chief complaint)ED F/U (chief complaint) Acquired ureteropelvi c junction strictureSyn cope, unspecified syncope typeCellulit is of right ankleSpider bite wound, undetermined intent, initial encounterVit emerson D deficiency [address] [facility], [place], [id number], [place]. tel:[phone] Referring Provider: Luzmaria miranda CNP, T[address] Monte, [place], [address]. tel:[phone] OFFICE/OUTPAT IENT VISIT, [employer] [facility], [address] [place] [address] [address], [place], [id number] , [place] tel:[phone] [facility] smoking cessation (chief complaint)vi tamin D deficiency (chief complaint) Vitamin D deficiencyTo bacco abuse [address] [facility], [place], [id number], [place]. tel:[phone] Referring Provider: Luzmaria miranda CNP, [facility], [place], [address]. tel:[phone] OFFICE/OUTPAT IENT VISIT, [employer] [facility], [address] [place] [address] [address], [place], [id number] , [place] tel:[phone] [facility] fibromyalgia (chief complaint) Pain in right legPain in left leg 9 Arps [facility] Elvira. [facility], [place], [id number], [place]. tel:[phone] Referring Provider: Elvira Miller DNP LEAD ELECTRICAL ENGINEER MILIEU TECHNICIAN-BC, [facility], [place], [address]. tel:[phone] OFFICE/OUTPAT IENT VISIT, [facility], [address] [place] [address] [address], [place], [place], [id number] , [place] [phone] [place] [facility] cough (chief complaint) Cough [address] [facility], [place], [id number], [place]. tel:[phone] Referring Provider: Luzmaria miranda CNP, Tiff[address] Monte, [place], [address]. tel:[phone] OFFICE/OUTPAT IENT VISIT, [facility], [address] [place] [address] [address], [place], [place], [address] , [place] tel:[phone] [place] [facility] Vitamin D deficiency (chief complaint)co ugh (chief complaint)sm oking cessation (chief complaint) Vitamin D deficiencyPh aryngitis, unspecified etiologyToba accounting assistant abuse [address] [facility], [place], [place], [id number], [place]. tel:[phone] Referring Provider: Luzmaria miranda CNP, [address], [place], [address]. tel:[phone] PREV VISIT, [facility], AGE 18-39 [facility], [address] [place] [address] [address], [place], [place], [address] , [place] [phone] [facility] Preventive exam (chief complaint) Routine gynecologica l examinationE ncounter for screening for malignant neoplasm of cervix 9 Betsey Dutta. T[address] Monte, [place], [id number], [place]. tel:[phone] Referring Provider: Luzmaria miranda CNP, [address] Monte, [place], [address]. [phone] [place] [address], [address] [place] [address], [place], [place], [id number] , [place] tel:[phone] [facility] No Information 8 Letty Parker. [address] [place] [address], [place], [place], [id number], [place]. tel:[phone] Referring Provider: Keith Saenz MD, [address] [place] [address], [place], [address]. tel:[phone] [place] [address], [address] [place] [address], [place], [place], [address] , [place] tel:[phone] [facility] mole (chief complaint) Skin tagAtypical mole 8 Letty Parker. [address] [place] [address], [place], [place], [address], [place]. tel:[phone] Referring Provider: Keith Saenz MD, [address] [place] [address], [place], [address]. tel:[phone] OFFICE/OUTPAT IENT VISIT, [facility] [facility], [address] [place] [address], [place], [place], [address] , [place] tel:[phone] [place] [facility] Mole(s) (chief complaint) Skin lesionSkin tag 8 Letty Parker. [address] [place] [address], [place], [place], [id number], [place]. tel:[phone] Referring Provider: Keith Saenz MD, [address] [place] [address], [place], [address]. tel:[phone] OFFICE/OUTPAT IENT VISIT, [facility], [address] [place] [address], [place], [place], [address] , [place] tel:[phone] [facility] [facility] Earache (chief complaint) Earache on right 8 Blickder brock Dutta. [address] [place] [address], [place], [place], [address], [place]. tel:[phone] Referring Provider: Luzmaria miranda CNP, [facility] [address], [place], [address]. tel:[phone] PREV VISIT, EST, AGE 18-39 [facility], [address] [place] [address] [address], [place], [place], [address] , [place] tel: [phone] [facility] Preventive exam (chief complaint) Routine gynecologica l examination 8 Betsey Dutta. [facility] [address], [place], [place], [address], [place]. [phone] Referring Provider: Luzmaria miranda CNP, [facility] [address] [facility] B, [place], [address]. tel:[phone] OFFICE/OUTPAT IENT VISIT, [facility], [address] [place] [address] [address], [place], [place], [address] , [place] tel: [phone] [facility] Surgical Clearance (chief complaint)to bacco abuse (chief complaint) Other elevated white blood cell (WBC) countTobacco abuse counselingOv eractive bladderPreop erative cardiovascul ar examination 8 No Information OFFICE/OUTPAT IENT VISIT, [facility], [address] [place] [address] [address], [place], [place], [address] , [place] tel: [phone] [place] [facility] sinus symptoms (acute) (chief complaint) Sinus pressure 8 No Information [facility], [address] [place] [address] [address], [place], [place], [address] , [place] tel: [phone] [facility] No Information 7 Betsey Dutta. [facility] B, [place], [place], [address], [place]. tel:[phone] Referring Provider: Luzmaria miranda CNP, [facility] [address], [place], [address]. tel:[phone] PREV VISIT, [facility], AGE 18-39 [facility], [address] [place] [address] [address], [place], [place], [address] , [place] tel: [phone] [facility] [facility] Preventive exam (chief complaint) Encntr for continuous absorption process operator exam (general) (routine) w/o abn findingsAt risk for sexually transmitted disease due to unprotected sexEncounter for screening for malignant neoplasm of cervix 7 Betsey Dutta. [address] [place] [address] B, [place], [place], [id number], [place]. [phone] Referring Provider: Luzmaria miranda BUSH REGENERATOR, [address] [place] [address], [place], [address]. [phone] [facility], [address] [place] [address] B, [place], [place], [address] , [place] tel: [phone] [facility] No Information 7 Letty Parker. [address] [place] [address], [place], [place], [address], [place]. tel:[phone] Referring Provider: Keith Saenz MD, [address] [place] [address], [place], [address]. tel:[phone] OFFICE/OUTPAT IENT VISIT, [facility], [address] [place] [address] [address], [place], [place], [address] , [place] tel: [phone] [facility] [facility] chronic conditions (chief complaint) Fibromyalgia 7 Letty Parker. [address] [place] [address], [place], [place], [address], [place]. [phone] Referring Provider: Keith Saenz MD, [address] [place] [address], [place], [address]. [phone] [facility], [address] [place] [address] B, [place], [place], [id number] , [place] tel:[phone] [facility] No Information 6 Letty Parker. [address] [place] [address], [place], [place], [address], [place]. tel:[phone] Referring Provider: Keith Saenz MD, [address] [place] [address] B, [place], [address]. tel:[phone] OFFICE/OUTPAT IENT VISIT, [facility], [address] [place] [address] [address], [place], [place], [address] , [place] tel:[phone] [facility] [facility] Follow Up of Cough (chief complaint) Cough 6 Betsey Dutta. [facility] B, [place], [place], [address], [place]. tel:[phone] Referring Provider: Luzmaria miranda BUSH REGENERATOR, [facility] B, [place], [address]. tel:[phone] OFFICE/OUTPAT IENT VISIT, [facility], [address] [place] [address] B, [place], [place], [id number] , [place] tel:[phone] [facility] Cold symptoms (chief complaint) CoughPneumon ia of left lower lobe due to infectious organismToba accounting assistant abuse 6 Betsey Dutta. [facility] B, [place], [place], [address], [place]. tel:[phone] Referring Provider: Luzmaria miranda BUSH REGENERATOR, [facility] [address], [place], [address]. tel:[phone] OFFICE/OUTPAT IENT VISIT, [facility], [address] [place] [address] [address], [place], [place], [address] , [place] tel:[phone] [facility] [facility] sore throat (chief complaint) Acute pharyngitis, unspecified 6 Arps DNP LEAD ELECTRICAL ENGINEER MILIEU TECHNICIAN-BC Elvira. [facility] [address], [place], [place], [address], [place]. tel:[phone] Referring Provider: Elvira Miller DNP LEAD ELECTRICAL ENGINEER MILIEU TECHNICIAN-BC, [facility] [address], [place], [address]. tel:[phone] [facility], [address] [place] [address] [address], [place], [place], [address] , [place] tel:[phone] [facility] [facility] GERD without esophagitisF ibromyalgia 6 Arps DNP LEAD ELECTRICAL ENGINEER MILIEU TECHNICIAN-BC Elvira. [address] [place] [address] B, [place], [place], [id number], [place]. tel:[phone] [facility], [address] [place] [address] B, [place], [place], [id number] , [place] tel:[phone] [facility] [facility] No Information 6 Letty Parker. [address] [place] [address], [place], [place], [address], [place]. tel:[phone] Referring Provider: Keith Saenz MD, [address] [place] [address], [place], [address]. tel:[phone] OFFICE/OUTPAT IENT VISIT, [facility], [address] [place] [address] [address], [place], [place], [address] , [place] [phone] [facility] [facility] abdominal pain (chief complaint) Lower abdominal pain 6 Letty Parker. [address] [place] [address], [place], [place], [address], [place]. tel:[phone] Referring Provider: Keith Saenz MD, [address] [place] [address], [place], [address]. tel:[phone] OFFICE/OUTPAT IENT VISIT, [facility], [address] [place] [address] B, [place], [place], [address] , [place] [phone] [place] [facility] Heartburn (chief complaint)Ur inary complaints (chief complaint) GERD without esophagitisF ibromyalgia 5 Letty Parker. [address] [place] [address], [place], [place], [address], [place]. tel:[phone] Referring Provider: Keith Saenz MD, [address] [place], [address]. tel:[phone] OFFICE/OUTPAT IENT VISIT, [facility], [address] [place] [address], [place], [place], [address] , [place] tel:[phone] [facility] Essure concerns (chief complaint)wt gain (chief complaint) Weight gainJOINT PAIN-MULT JTS Apr-2 2-201 5 Sukhwinder Rdz. [address] [place] [address], [address], [place]. tel:[phone] Referring Provider: Kendell Pretty MD, [address] [place] [address], [facility]. tel:[phone] [place] [address], [address] [place] [address], [id number] , [place] tel: [phone] [facility] No Information Apr-0 - 5 Sukhwinder Rdz. [address] [place] [address], [address], [place]. tel:[phone] Referring Provider: Kendell Pretty MD, [address] [place] [address], [address]. tel:[phone] PREV VISIT, [facility], AGE 18-39 [facility], [address] [place] [address], [place], [place], [id number] , [place] tel:[phone] [facility] Preventive exam (chief complaint) ROUTINE MEDICAL EXAMOveracti ve bladder Mar-0 3-201 5 Sukhwinder Rdz. [address] [place] [address], [address], [place]. tel:[phone] Referring Provider: Kendell Pretty MD, [address] [place] [address], [address]. tel:[phone] OFFICE/OUTPAT IENT VISIT, [facility], [address] [place] [address], [id number] , [place] tel:[phone] [facility] OP No Information Feb-0 4-201 5 No Information OFFICE/OUTPAT IENT VISIT, [facility], [address] [place] [address] [address], [place], [place], [address] , [place] tel: [phone] [facility] OP No Information 4 No Information OFFICE CONSULTATION [facility], [address] [place] [address] [address], [place], [place], [address] , [place] tel: [phone] [facility] OP No Information 4 No Information OFFICE/OUTPAT IENT VISIT, [facility], [address] [place] [address] [address], [place], [place], [address] , [place] tel: [phone] [facility] lump on back of head (chief complaint) Headache 4 Sukhwinder Rdz. [address] [place] [address], [address], [place]. tel:[phone] Referring Provider: Kendell Pretty MD, [address] [place] [address], [address]. tel:[phone] OFFICE/OUTPAT IENT VISIT, [facility], [address] [place] [address] [address], [place], [place], [address] , [place] tel:[phone] [facility] earache (chief complaint) Acute sinusitis 4 Sukhwinder Rdz. [address] [place] [address], [address], [place]. tel:[phone] Referring Provider: Kendell Pretty MD, [address] [place] [address], [address]. tel:[phone] [facility], [address] [place] [address] [address], [place], [place], [address] , [place] tel:[phone] [facility] No Information 3 Betsey Dutta. [address] [place] [address] [facility], [place], [place], [address], [place]. tel:[phone] Referring Provider: Luzmaria miranda CNP, [address] [place] [address] [facility], [place], [address]. tel:[phone] OFFICE/OUTPAT IENT VISIT, [facility], [address] [place] [address] [address], [place], [place], [address] , [place] tel:[phone] [facility] [facility] sinus symptoms (acute) (chief complaint)we ight loss (chief complaint) Allergic rhinitisWeig ht gain 3 Betsey Dutta. [facility] B, [place], [place], [id number], [place]. tel:[phone] Referring Provider: Luzmaria miranda CNP, [facility] Mell, [place], [address]. tel:[phone] OFFICE/OUTPAT IENT VISIT, [facility], [address] [place] [address] B, [place], [place], [id number] , [place] tel:[phone] [place] [facility] sore throat (chief complaint) Throat pain 3 Blickensder brock JUNITO Dutta. [facility], [place], [place], [address], [place]. tel:[phone] Referring Provider: Luzmaria miranda CNP, [facility], [place], [address]. tel:[phone] OFFICE/OUTPAT IENT VISIT, [facility] [facility], [address] [place] [address] [address], [place], [place], [address] , [place] tel:[phone] [place] [facility] sore throat (chief complaint) Throat pain 3 Blickensder brock JUNITO Dutta. [facility] B, [place], [place], [address], [place]. tel:[phone] Referring Provider: Nesha Mckeon DNP BREEDER SERVICE TECHNICIAN-C, [facility] B, [place], [address]. tel:[phone] OFFICE/OUTPAT IENT VISIT, [facility], [address] [place] [address] B, [place], [place], [id number] , [place] tel:[phone] [facility] cold symptoms (chief complaint)tr ouble sleeping (chief complaint) URI, acuteTobacco abuseInsomni a 2 Betsey Dutta. [address] [place] [address] B, [place], [place], [address], . tel:[phone] Referring Provider: Luzmaria miranda BUSH REGENERATOR, [address] [place] [address] B, [place], [address]. [phone] OFFICE/OUTPAT IENT VISIT, [facility], [address] [place] [address] [address], [place], [place], [address] , tel:[phone] [facility] tobacco abuse (chief complaint) Tobacco abuse counselingTo bacco use disorder 2 Linda GLEASON BREEDER SERVICE TECHNICIAN-C Nesha. [address] [place] [address], [place], [place], [address], [place]. tel:[phone] Referring Provider: Nesha Mckeon DNP BREEDER SERVICE TECHNICIAN-C, [address] [place] [address] B, [place], [address]. [phone] [facility], [address] [place] [address] B, [place], [place], [id number] , tel:[phone] [facility] Skin lesion (chief complaint) Skin lesion of back 2 Sukhwinder Rdz. [address] [place] [address], [address], [place]. tel:[phone] Referring Provider: Kendell Pretty MD, [address] [place] [address], [address]. [phone] [facility], [address] [place] [address] B, [place], [place], [id number] , tel:[phone] [facility] No Information 2 Sukhwinder Rdz. [address] [place] [address], [address], [place]. tel:[phone] Referring Provider: Kendell Pretty MD, [address] [place] [address], [address]. tel:[phone] Office/outpat ient visit,[facility] [employer] [facility] [facility], [address] [place] [address], [place], [place], [address] , [place] [phone] [facility] headache (chief complaint)we ight gain (chief complaint)sm oking cessation (chief complaint)Sk in lesion (chief complaint) HeadacheEasy bruisingToba accounting assistant abuseNevusWe ight gain 2 Sukhwinder Rdz. [address] [place] [address], [address], . tel:[phone] Referring Provider: Kendell Pretty MD, [address] [place] [address], [facility]. tel:[phone] OFFICE/OUTPAT IENT VISIT, [facility] [facility], [address] [place] [address], [place], [place], [address] , [phone] [facility] No Information 2 Sukhwinder Rdz. [address] [place] [address], [address], . tel:[phone] Referring Provider: Kendell Pretty MD, [address] [place] [address], [address]. tel:[phone] Office/outpat ient visit,[facility] [employer] [facility] [employer] [facility], [address] [place] [address] B, [place], [place], [address] , [place] [phone] [facility] [facility] URI (chief complaint) Sinusitis acutePharyng itis, Acute 2 No Information OFFICE/OUTPAT IENT VISIT, [facility] [facility], [address] [place] [address], [place], [place], [id number] , [place] [phone] [facility] No Information 2 Betsey Dutta. [address] [place] [address] [address], [place], [place], [id number], [place]. tel:[phone] Referring Provider: Kendell Pretty MD, [address], [place], [address]. tel:[phone] Office/outpat ient visit,[facility], [address] [place] [address] [address], [place], [place], [id number] , [phone] [facility] flank pain (chief complaint)we ight gain (chief complaint) BackacheABNO RMAL WEIGHT GAINJOINT PAIN-MULT JTS 1 Brian Marlow. [facility] [address], [place], [place], [id number], [place]. tel:[phone] Referring Provider: Ele Watson, [facility] [address], [place], [address]. tel:[phone] Office/outpat ient visit,[facility], [address] [place] [address] [address], [place], [place], [id number] , [place] [phone] [facility] cold symptoms (chief complaint) Upper Respiratory Infection, Acute 1 Brian Marlow. [facility] [address], [place], [place], [id number], [place]. tel:[phone] Referring Provider: Ele Watson, [facility] [address], [place], [address]. tel:[phone] Preventive checkup, [facility],18-39 [facility], [address] [place] [address] [address], [place], [place], [address] , [place] [phone] [facility] PAP test (chief complaint) Gynecologica l Examination 1 Sukhwinder Rdz. [address] [place] [address], [address], [place]. tel:[phone] Referring Provider: Kendell Pretty MD, [address], [address]. tel:[phone] Office/outpat ient visit,[facility], [address] [place] [address] [address], [place], [place], [id number] , [place] tel: [phone] [facility] abdominal discomfort (chief complaint)ba ck pain (chief complaint) ABDMNAL PAIN PERIUMBILICB ackache 1 Sukhwinder Rdz. 1000 [facility] [address]nd Floor, [place], [address], [place]. tel:[phone] Office/outpat ient visit,[facility], [address] [place] [address] [address], [place], [place], [id number] , [place] tel: [phone] [facility] migraines (chief complaint) HEADACHENAUS EA ALONE [address] [facility], [place], [place], [id number], [place]. tel:[phone] Referring Provider: Ele Watson, [address], [place], [address]. tel:[phone] Office/outpat ient visit,[facility], [address] [place] [address] [address], [place], [place], [id number] , [place] tel:[phone] [facility] cold symptoms (chief complaint) ALLERGIC RHINITIS NOS [address] [facility] [address], [place], [place], [id number], [place]. tel:[phone] Referring Provider: Ele Watson, [address], [place], [address]. tel:[phone] Office/outpat ient visit,[facility], [address] [place] [address] [address], [place], [place], [id number] , [place] tel:[phone] [facility] blood in urine (chief complaint) No Information [address] [facility] [address], [place], [place], [id number], [place]. tel:[phone] Referring Provider: Ele Watson, [address], [place], [address]. tel:[phone] Office/outpat ient visit,[facility], [address] [place] [address] [address], [place], [place], [id number] , [phone] [facility] abdominal discomfort (chief complaint)he adache (chief complaint)ir regular period (chief complaint) No Information 0-200 7 Brian Marlow. [address], [place], [place], [address], [place]. tel:[phone] Referring Provider: Ele Watson, [address], [place], [address]. tel:[phone] Office/outpat ient visit,[facility], [address] [place] [address] [address], [place], [place], [address] , [phone] [facility] no period (chief complaint) ABSENCE OF MENSTRUATION Mar-2 8-200 7 Brian Marlow. [address], [place], [place], [address], [place]. tel:[phone] Referring Provider: Ele Watson, [address], [place], [address]. tel:[phone] Office/outpat ient visit,[facility], [address] [place] [address] [address], [place], [place], [id number] , [place] tel:[phone] [facility] depo (chief complaint) IRREGULAR MENSTRUATION Nov-0 7-200 6 Brian Marlow. [address], [place], [id number], [place]. tel:[phone] Referring Provider: Ele Watson, [address], [place], [address]. tel:[phone] Family History Family Member Type Diagnosis Age At Onset Problem (finding) Family history of coronary arteriosclerosis Problem (finding) Family history of hyper tension Mother Problem (finding) hypothyroidism Father Problem (finding) hypertension Mother Problem (finding) hypothyroidism Paternal grandfather Problem (finding) stroke Mother Problem (finding) hypertension Problem (finding) Family history of Diabetes mellitus Father Problem (finding) Myocardial infarction Father Problem (finding) blood clots Payers Payer name Insurance type Covered green party ID Marylou hedrick(s) [employer] [id number] Social History Type Description Quantity Date Captured Comments Alcohol Use Details Unknown Caffeine Use Details Unknown Tobacco Use Status Occasional cigarette smoker Smoking Status Heavy tobacco smoker Smoking Tobacco Use Details Cigarette: Years Used 19 Cigarette: 0.75 Packs per day, Pack Year: 14.25 Sex Female Vital Signs Date / Time: Height Weight BMI Pulse Rate Blood Pressure Temperature Respiratory Rate Body Surface Area Head Circumference Head Circ. Percentile Wt./Jason. Percentile BMI percentile Pulse Ox Inhaled Ox 11:02 AM 65.00 in 92.533 kg (204.00 lbs) 33.9 5 kg/m eter (2) 76 /min 124/86 mm[Hg] 98.70 F 18 /min 21 % Chief Complaint And Reason For Visit From encounter dated '09/16/2019 11:00'. Sciatica (chief complaint). Description: Onset: on 09/12/2019. The problem is stable. It occurs persistently. Location of pain is right flank. Pain is radiated to the right thigh and right buttock. The patient's mother self describes the pain as, burning, numbness and sharp. Symptoms are aggravated by bending.The patient's mother, self denies relieving factors. Additional information: Pt went to [facility] 09/12 d/t sciatica pain. Pt states pain began Sunday night, she woke up Sunday morning and could not feel legs or stand, states she fell d/t sx. Has tried, heat, Aleve, Biofreeze with no effectiveness. Reason For Referral Reason For Referral No Information Plan Of Treatment Date Type Action Status Goal DEXA Scan. Due on 0 due Goal Medroxyprogester one inj. Due on due Goal Cytology report of Cervical and vaginal smear or scraping Cyto stain. Due on due Goal Ttd-Fuogvw-dlwbj. Due on Sep due Goal Glucose. Due on due Goal URINALYSIS NONAU TO W/O SCOPE. Due on due Goal Td vaccine. Due on 20 due Goal Digital Mammogra m Screening. Due on due Goal Pap liquid based for cytology. Due on due Goal Lipid Panel. Due on 024 due Goal EQUITY ANALYST exam. Due on due Goal Diabetes Screening. Due on A due Goal H&P. Due on due Goal Influenza vaccine. Due on due Goal EQUITY ANALYST/Breast exam. Due on due Goal THER/PROPH/DIAG INJ, SC/IM. Due on due Goal HPV, high+low-risk. Due on due Goal Depression screening. Due on due Goal Breast exam. Due on 020 due Goal HPV. Due on due Goal Tobacco cessation counseling completed Goal DEXA Scan. Due on 9 due Goal EQUITY ANALYST/Breast exam. Due on due Goal Mammogram. Due on 0 due Goal URINALYSIS NONAU TO W/O SCOPE. Due on due Goal Digital Mammogra m Screening. Due on due Goal Diabetes Screening. Due on A due Goal Glucose. Due on due Goal Depression screening. Due on due Goal Pap liquid based for cytology. Due on due Goal Lipid Panel. Due on due Goal Breast exam. Due on due Goal Medroxyprogester one inj. Due on due Goal Influenza vaccine. Due on due Goal H&P. Due on due Goal Td vaccine. Due on 19 due Goal Hyx-Nhvuwp-rsnmy. Due on Sep due Goal HPV, high+low-risk. Due on A due Goal THER/PROPH/DIAG INJ, SC/IM. Due on due Goal Cytology report of Cervical and vaginal smear or scraping Cyto stain. Due on due Goal EQUITY ANALYST exam. Due on due Goal Mammogram. Due on 0 due Goal EQUITY ANALYST/Breast exam. Due on due Goal DEXA Scan. Due on 9 due Goal HPV, high+low-risk. Due on A due Goal THER/PROPH/DIAG INJ, SC/IM. Due on due Goal Breast exam. Due on due Goal Glucose. Due on due Goal Uwv-Ycrpoi-baqph. Due on Sep due Goal Influenza vaccine. Due on due Goal Medroxyprogester one inj. Due on due Goal Lipid Panel. Due on 024 due Goal Diabetes Screening. Due on A due Goal Td vaccine. Due on 19 due Goal Depression screening. Due on due Goal Pap liquid based for cytology. Due on due Goal H&P. Due on due Goal EQUITY ANALYST exam. Due on due Goal Cytology report of Cervical and vaginal smear or scraping Cyto stain. Due on due Goal URINALYSIS NONAU TO W/O SCOPE. Due on due Goal Digital Mammogra m Screening. Due on due Goal URINALYSIS NONAU TO W/O SCOPE. Due on due Goal Depression screening. Due on due Goal Pap liquid based for cytology. Due on due Goal THER/PROPH/DIAG INJ, SC/IM. Due on due Goal Diabetes Screening1. Due on due Goal HPV, high+low-risk. Due on due Goal Glucose. Due on due Goal Cytology report of Cervical and vaginal smear or scraping Cyto stain. Due on due Goal Lipid Panel. Due on 024 due Goal DEXA Scan. Due on 6 due Goal Influenza vaccine. Due on due Goal Breast exam. Due on due Goal H&P. Due on due Goal EQUITY ANALYST exam. Due on due Goal Diabetes Screening. Due on due Goal Colonoscopy. Due on 016 due Goal Mammogram. Due on 0 due Goal Td vaccine. Due on 19 due Goal EQUITY ANALYST/Breast exam. Due on due Goal Krn-Vnsyns-dxtmh. Due on Aug due Goal Medroxyprogester one inj. Due on due Goal Diabetes Screening1. Due on due Goal Diabetes Screening. Due on due Goal Influenza vaccine. Due on due Goal Breast exam. Due on 019 due Goal EQUITY ANALYST exam. Due on due Goal DEXA Scan. Due on 6 due Goal Cytology report of Cervical and vaginal smear or scraping Cyto stain. Due on due Goal Pap liquid based for cytology. Due on due Goal Glucose. Due on due Goal Colonoscopy. Due on 016 due Goal H&P. Due on due Goal Td vaccine. Due on 19 due Goal EQUITY ANALYST/Breast exam. Due on due Goal Mammogram. Due on 0 due Goal Lipid Panel. Due on 024 due Goal Frp-Ecfunc-femyo. Due on Jul due Goal Medroxyprogester one inj. Due on due Goal URINALYSIS NONAU TO W/O SCOPE. Due on due Goal Depression screening. Due on due Goal HPV, high+low-risk. Due on due Goal THER/PROPH/DIAG INJ, SC/IM. Due on due Goal Cytology report of Cervical and vaginal smear or scraping Cyto stain. Due on due Goal Pzp-Foanbg-coall. Due on Jul due Goal THER/PROPH/DIAG INJ, SC/IM. Due on due Goal HPV, high+low-risk. Due on due Goal Pap liquid based for cytology. Due on due Goal Colonoscopy. Due on 016 due Goal H&P. Due on due Goal Breast exam. Due on 019 due Goal Lipid Panel. Due on 024 due Goal Influenza vaccine. Due on due Goal EQUITY ANALYST/Breast exam. Due on due Goal DEXA Scan. Due on 6 due Goal Diabetes Screening. Due on due Goal Mammogram. Due on 0 due Goal Td vaccine. Due on 19 due Goal EQUITY ANALYST exam. Due on due Goal Diabetes Screening1. Due on due Goal Glucose. Due on due Goal Depression screening. Due on due Goal Medroxyprogester one inj. Due on due Goal URINALYSIS NONAU TO W/O SCOPE. Due on due Goal Tobacco cessation counseling completed Goal Glucose. Due on due Goal Diabetes Screening1. Due on due Goal Depression screening. Due on due Goal URINALYSIS NONAU TO W/O SCOPE. Due on due Goal Medroxyprogester one inj. Due on due Goal THER/PROPH/DIAG INJ, SC/IM. Due on due Goal Pap liquid based for cytology. Due on due Goal Cytology report of Cervical and vaginal smear or scraping Cyto stain. Due on due Goal Lej-Tavbkz-gzufj. Due on June due Goal HPV, high+low-risk. Due on due Goal EQUITY ANALYST/Breast exam. Due on due Goal Diabetes Screening. Due on due Goal DEXA Scan. Due on 6 due Goal Td vaccine. Due on 19 due Goal H&P. Due on due Goal Colonoscopy. Due on 016 due Goal Influenza vaccine. Due on due Goal EQUITY ANALYST exam. Due on due Goal Lipid Panel. Due on 020 due Goal Breast exam. Due on 019 due Goal Mammogram. Due on 0 due Goal Diabetes Screening1. Due on due Goal Glucose. Due on due Goal URINALYSIS NONAU TO W/O SCOPE. Due on due Goal Medroxyprogester one inj. Due on due Goal Depression screening. Due on due Goal THER/PROPH/DIAG INJ, SC/IM. Due on due Goal HPV, high+low-risk. Due on due Goal Pap liquid based for cytology. Due on due Goal Kzv-Hxhdzt-rhgsb. Due on Dec due Goal Cytology report of Cervical and vaginal smear or scraping Cyto stain. Due on due Goal Lipid Panel. Due on due Goal Diabetes Screening. Due on N due Goal Td vaccine. Due on 18 due Goal Influenza vaccine. Due on due Goal EQUITY ANALYST/Breast exam. Due on due Goal Breast exam. Due on 018 due Goal EQUITY ANALYST exam. Due on due Goal H&P. Due on due Goal Colonoscopy. Due on 016 due Goal DEXA Scan. Due on due Goal Mammogram. Due on due Goal Pap liquid based for cytology. Due on due Goal Td vaccine. Due on 18 due Goal HPV, high+low-risk. Due on O due Goal DEXA Scan. Due on due Goal THER/PROPH/DIAG INJ, SC/IM. Due on due Goal Diabetes Screening. Due on O due Goal H&P. Due on due Goal Lipid Panel. Due on due Goal Cytology report of Cervical and vaginal smear or scraping Cyto stain. Due on due Goal Medroxyprogester one inj. Due on due Goal EQUITY ANALYST exam. Due on due Goal Mammogram. Due on 6 due Goal Uio-Xjfwjh-uyhzp. Due on Nov due Goal Influenza vaccine. Due on due Goal Depression screening. Due on due Goal Breast exam. Due on 018 due Goal Colonoscopy. Due on 016 due Goal Diabetes Screening1. Due on due Goal URINALYSIS NONAU TO W/O SCOPE. Due on due Goal Glucose. Due on due Goal EQUITY ANALYST/Breast exam. Due on due Goal Mammogram. Due on due Goal Breast exam. Due on 018 due Goal Lipid Panel. Due on 020 due Goal Depression screening. Due on due Goal URINALYSIS NONAU TO W/O SCOPE. Due on due Goal Diabetes Screening. Due on due Goal HPV, high+low-risk. Due on due Goal Shq-Ithbla-emehh. Due on Jul due Goal Influenza vaccine. Due on due Goal Medroxyprogester one inj. Due on due Goal Diabetes Screening1. Due on due Goal Colonoscopy. Due on 016 due Goal DEXA Scan. Due on due Goal Cytology report of Cervical and vaginal smear or scraping Cyto stain. Due on due Goal EQUITY ANALYST exam. Due on due Goal H&P. Due on due Goal EQUITY ANALYST/Breast exam. Due on due Goal THER/PROPH/DIAG INJ, SC/IM. Due on due Goal Glucose. Due on due Goal Td vaccine. Due on 18 due Goal Pap liquid based for cytology. Due on due Goal THER/PROPH/DIAG INJ, SC/IM. Due on due Goal Glucose. Due on due Goal H&P. Due on due Goal EQUITY ANALYST exam. Due on due Goal URINALYSIS NONAU TO W/O SCOPE. Due on due Goal Td vaccine. Due on 18 due Goal Lipid Panel. Due on 020 due Goal Diabetes Screening. Due on due Goal Mammogram. Due on due Goal Pap liquid based for cytology. Due on due Goal Depression screening. Due on due Goal Breast exam. Due on 018 due Goal HPV, high+low-risk. Due on due Goal Mzs-Lfpsye-lmive. Due on June due Goal Diabetes Screening1. Due on due Goal Medroxyprogester one inj. Due on due Goal Influenza vaccine. Due on due Goal Colonoscopy. Due on 016 due Goal EQUITY ANALYST/Breast exam. Due on due Goal DEXA Scan. Due on due Goal Cytology report of Cervical and vaginal smear or scraping Cyto stain. Due on due Goal Depression screening. Due on due Goal Pap liquid based for cytology. Due on due Goal Lipid Panel. Due on due Goal H&P. Due on due Goal EQUITY ANALYST/Breast exam. Due on due Goal THER/PROPH/DIAG INJ, SC/IM. Due on due Goal URINALYSIS NONAU TO W/O SCOPE. Due on due Goal Breast exam. Due on 018 due Goal Mammogram. Due on due Goal Diabetes Screening1. Due on due Goal Glucose. Due on due Goal EQUITY ANALYST exam. Due on due Goal Influenza vaccine. Due on due Goal Diabetes Screening. Due on due Goal DEXA Scan. Due on 6 due Goal Medroxyprogester one inj. Due on due Goal Bea-Qfeypr-ltjot. Due on Feb due Goal HPV, high+low-risk. Due on due Goal Td vaccine. Due on 18 due Goal Colonoscopy. Due on 016 due Goal Cytology report of Cervical and vaginal smear or scraping Cyto stain. Due on due Goal H&P. Due on due Goal Depression screening. Due on due Goal Lipid Panel. Due on due Goal Pap liquid based for cytology. Due on due Goal Cytology report of Cervical and vaginal smear or scraping Cyto stain. Due on due Goal HPV, high+low-risk. Due on due Goal Td vaccine. Due on 18 due Goal Nzs-Yvwyya-xewpj. Due on Feb due Goal Diabetes Screening. Due on due Goal Medroxyprogester one inj. Due on due Goal Diabetes Screening1. Due on due Goal EQUITY ANALYST/Breast exam. Due on due Goal THER/PROPH/DIAG INJ, SC/IM. Due on due Goal Influenza vaccine. Due on due Goal EQUITY ANALYST exam. Due on due Goal Breast exam. Due on 018 due Goal Mammogram. Due on 6 due Goal Glucose. Due on due Goal DEXA Scan. Due on 6 due Goal URINALYSIS NONAU TO W/O SCOPE. Due on due Goal Colonoscopy. Due on 016 due Goal Depression screening. Due on due Goal Dka-Fwjnte-yflvl. Due on June due Goal HPV, high+low-risk. Due on due Goal Td vaccine. Due on 17 due Goal Pap liquid based for cytology. Due on due Goal Diabetes Screening. Due on due Goal URINALYSIS NONAU TO W/O SCOPE. Due on due Goal Influenza vaccine. Due on due Goal Breast exam. Due on 012 due Goal THER/PROPH/DIAG INJ, SC/IM. Due on due Goal EQUITY ANALYST/Breast exam. Due on due Goal Diabetes Screening1. Due on due Goal Medroxyprogester one inj. Due on due Goal Medroxyprogester one inj. Due on due Goal EQUITY ANALYST exam. Due on due Goal Dbp-Wbvzqb-zfjsn. Due on Apr due Goal Pap liquid based for cytology. Due on due Goal Influenza vaccine. Due on due Goal Td vaccine. Due on 17 due Goal Diabetes Screening1. Due on due Goal Diabetes Screening. Due on due Goal Breast exam. Due on 012 due Goal Depression screening. Due on due Goal URINALYSIS NONAU TO W/O SCOPE. Due on due Goal EQUITY ANALYST/Breast exam. Due on due Goal HPV, high+low-risk. Due on due Goal THER/PROPH/DIAG INJ, SC/IM. Due on due Goal H&P. Due on due Goal Td vaccine. Due on 16 due Goal Diabetes Screening. Due on due Goal Breast exam. Due on 012 due Goal Depression screening. Due on due Goal H&P. Due on due Goal EQUITY ANALYST exam. Due on due Goal HPV, high+low-risk. Due on N due Goal THER/PROPH/DIAG INJ, SC/IM. Due on due Goal URINALYSIS NONAU TO W/O SCOPE. Due on due Goal Medroxyprogester one inj. Due on due Goal Pap liquid based for cytology. Due on due Goal Wiz-Nphnzk-ykggc. Due on Dec due Goal Diabetes Screening1. Due on due Goal EQUITY ANALYST/Breast exam. Due on due Goal Influenza vaccine. Due on due Goal THER/PROPH/DIAG INJ, SC/IM. Due on due Goal Pap liquid based for cytology. Due on due Goal Breast exam. Due on 012 due Goal EQUITY ANALYST/Breast exam. Due on due Goal Diabetes Screening1. Due on due Goal Depression screening. Due on due Goal HPV, high+low-risk. Due on O due Goal Diabetes Screening. Due on O due Goal Fgz-Yeemsz-lqeqc. Due on Nov due Goal URINALYSIS NONAU TO W/O SCOPE. Due on due Goal Td vaccine. Due on 16 due Goal EQUITY ANALYST exam. Due on due Goal Medroxyprogester one inj. Due on due Goal Influenza vaccine. Due on Oc due Goal H&P. Due on due Goal Glucose. Due on due Goal Colonoscopy. Due on 016 due Goal Mammogram. Due on due Goal Depression screening. Due on due Goal Zba-Jtlfkc-rytvk. Due on Oct due Goal HPV, high+low-risk. Due on due Goal H&P. Due on due Goal OARRS. Due on du e Goal EQUITY ANALYST exam. Due on due Goal EQUITY ANALYST/Breast exam. Due on due Goal Td vaccine. Due on 16 due Goal DEXA Scan. Due on due Goal Diabetes Screening. Due on due Goal Medroxyprogester one inj. Due on due Goal Breast exam. Due on 012 due Goal Influenza vaccine. Due on due Goal URINALYSIS NONAU TO W/O SCOPE. Due on due Goal THER/PROPH/DIAG INJ, SC/IM. Due on due Goal Pap liquid based for cytology. Due on due Goal H&P. Due on due Goal OARRS. Due on du e Goal HPV, high+low-risk. Due on A due Goal Pap liquid based for cytology. Due on due Goal DEXA Scan. Due on 6 due Goal Depression screening. Due on due Goal Breast exam. Due on 012 due Goal Mammogram. Due on due Goal EQUITY ANALYST exam. Due on due Goal THER/PROPH/DIAG INJ, SC/IM. Due on due Goal Grs-Qpnpwi-nlmfh. Due on Sep due Goal URINALYSIS NONAU TO W/O SCOPE. Due on due Goal Medroxyprogester one inj. Due on due Goal Td vaccine. Due on 16 due Goal Influenza vaccine. Due on due Goal EQUITY ANALYST/Breast exam. Due on due Goal Colonoscopy. Due on 016 due Goal Glucose. Due on due Goal Diabetes Screening. Due on due Goal H&P. Due on due Goal Mammogram. Due on 6 due Goal Diabetes Screening. Due on due Goal Td vaccine. Due on 16 due Goal Glucose. Due on due Goal Pap liquid based for cytology. Due on due Goal THER/PROPH/DIAG INJ, SC/IM. Due on due Goal Colonoscopy. Due on 016 due Goal Breast exam. Due on 012 due Goal OARRS. Due on du e Goal HPV, high+low-risk. Due on due Goal Pag-Jktwyk-vtibm. Due on Aug due Goal Medroxyprogester one inj. Due on due Goal EQUITY ANALYST/Breast exam. Due on due Goal Influenza vaccine. Due on due Goal EQUITY ANALYST exam. Due on due Goal Depression screening. Due on due Goal URINALYSIS NONAU TO W/O SCOPE. Due on due Goal DEXA Scan. Due on 6 due Goal OARRS. Due on du e Goal HPV, high+low-risk. Due on due Goal Breast exam. Due on 012 due Goal Qpx-Kybagi-uggdv. Due on Dec due Goal Medroxyprogester one inj. Due on due Goal Pap liquid based for cytology. Due on due Goal EQUITY ANALYST exam. Due on due Goal Diabetes Screening. Due on due Goal Depression screening. Due on due Goal Influenza vaccine. Due on due Goal EQUITY ANALYST/Breast exam. Due on due Goal Colonoscopy. Due on 015 due Goal URINALYSIS NONAU TO W/O SCOPE. Due on due Goal Mammogram. Due on 5 due Goal Td vaccine. Due on 15 due Goal THER/PROPH/DIAG INJ, SC/IM. Due on due Goal DEXA Scan. Due on 5 due Goal HPV, high+low-risk. Due on A due Goal Diabetes Screening. Due on A due Goal Tdap. Due on due Goal EQUITY ANALYST/Breast exam. Due on due Goal Depression screening. Due on due Goal Pap liquid based for cytology. Due on due Goal Breast exam. Due on 012 due Goal URINALYSIS NONAU TO W/O SCOPE. Due on due Goal EKG. Due on due Goal INSERT DRUG IMPL ANT DEVICE. Due on due Goal OARRS. Due on du e Goal DEXA Scan. Due on 5 due Goal Mammogram. Due on 5 due Goal Medroxyprogester one inj. Due on due Goal THER/PROPH/DIAG INJ, SC/IM. Due on due Goal Influenza vaccine. Due on due Goal EQUITY ANALYST exam. Due on due Goal Td vaccine. Due on 15 due Goal Fzg-Htwpic-njmvw. Due on May due Goal EQUITY ANALYST exam. Due on due Goal Diabetes Screening. Due on due Goal Medroxyprogester one inj. Due on due Goal URINALYSIS NONAU TO W/O SCOPE. Due on due Goal Depression screening. Due on due Goal EQUITY ANALYST/Breast exam. Due on due Goal Influenza vaccine. Due on due Goal Ctm-Armujc-lnpgw. Due on Apr due Goal INSERT DRUG IMPL ANT DEVICE. Due on due Goal HPV, high+low-risk. Due on due Goal Td vaccine. Due on 15 due Goal Glucose. Due on due Goal DEXA Scan. Due on 5 due Goal THER/PROPH/DIAG INJ, SC/IM. Due on due Goal Tdap. Due on due Goal OARRS. Due on du e Goal Breast exam. Due on 012 due Goal Pap liquid based for cytology. Due on due Goal DEXA Scan. Due on 4 due Goal Depression screening. Due on due Goal Glucose. Due on due Goal EQUITY ANALYST/Breast exam. Due on due Goal HPV, high+low-risk. Due on O due Goal INSERT DRUG IMPL ANT DEVICE. Due on due Goal INSERT DRUG IMPL ANT DEVICE. Due on due Goal INSERT DRUG IMPL ANT DEVICE. Due on due Goal INSERT DRUG IMPL ANT DEVICE. Due on due Goal Medroxyprogester one inj. Due on due Goal OARRS. Due on du e Goal Yls-Irmyud-oogyu. Due on Nov due Goal THER/PROPH/DIAG INJ, SC/IM. Due on due Goal Influenza vaccine. Due on due Goal Td vaccine. Due on 14 due Goal Breast exam. Due on 012 due Goal Tdap. Due on due Goal H&P. Due on due Goal EQUITY ANALYST exam. Due on due Goal Diabetes Screening. Due on O due Goal URINALYSIS NONAU TO W/O SCOPE. Due on due Goal Tdap. Due on due Goal Td vaccine. Due on 14 due Goal Influenza vaccine. Due on Au due Goal H&P. Due on due Goal Diabetes Screening. Due on A due Goal Breast exam. Due on 012 due Goal EQUITY ANALYST exam. Due on due Goal PAP. 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 Nixon Ashby MD. Evaluate and treat ordered Referral Ordered: Pathology (tissue specimen) ordered Referral Ordered: Pathology (tissue specimen) ordered Referral Ordered: Phani Arita -Gastroenterology (related to GERD without esophagitis) ordered Referral Ordered: Juve Salazar -Rheumatology (related to Fibromyalgia) ordered Referral Ordered: Phani Arita -Gastroenterology (related to Fibromyalgia) ordered Referral Ordered: Phani Arita -Gastroenterology (related to GERD without esophagitis) ordered Referral Ordered: Juve Salazar -Rheumatology (related to Fibromyalgia) ordered Referral Referred To: Phani Arita [address] [place], [address] [phone] Ordered: Referrals: Gastroenterology. Phani Arita. Evaluate and treat ordered Referral Referred To: Phani Arita [address] [place], [address] [phone] Ordered: Referrals: Gastroenterology. Phani Arita. Evaluate and treat ordered Referral Referred To: Juve Salazar [address] [place], [address] [phone] Ordered: Referrals: Rheumatology. Juve Salazar. Evaluate and treat ordered Referral Ordered: Kevin Duffy DO (related to Overactive bladder) ordered Referral Referred To: Kevin Duffy DO [address] [place], [address] [phone] Ordered: Referrals: Gynecology. Kevin Duffy DO. Evaluate and treat ordered Referral Referred To: Dr. Keith Lin- [phone] Ordered: Referral: Dr. Keith Lin- [phone]. Evaluate and treat. ordered Patient Education Sinusitis: Care Instruc tions completed Patient Education High Cholesterol: After Your Visit completed Future Order: Radiol ogy Order Echocardiogram ([id number]), Ordered on: Ordered Future Order: Radiol ogy Order MA SCREENINGMAMMOGRAPHYDIGITAL ([id number]), Ordered on: Ordered Future Order: Radiol ogy Order XR Chest PA/LAT ([id number]), Ordered on: Ordered Future Order: Radiol ogy Order CT Abdomen + Pelvis w/o Contrast ([id number]), Ordered on: Ordered Future Order: Lab Order Factor V Leiden Mutation ([id number]), Sent on: Sent Future Order: Lab Order ANACHOIC E(TM) SCREEN W/REFL TO TITER, IFA (249), Ordered on: Ordered Future Order: Lab Order LIPID PA JOE WITH REFLEX TO DIRECT LDL (68050), Ordered on: Ordered Future Order: Lab Order INSULIN (561), Or dered on: Ordered Future Order: Lab Order TSH, 3RD GENERATION (899), Ordered on: Ordered Future Order: Lab Order RHEUMATO ID FACTOR (9758), Ordered on: Ordered Future Order: Lab Order LIPID PA JOE (9455), Ordered on: Ordered Future Order: Lab Order HEPATIC FUNCTION PANEL (19153), Ordered on: Ordered Future Order: Lab Order COMPREHE NSIVE METABOLIC$PANEL W/EGFR (07355), Ordered on: Ordered Future Order: Lab Order BASIC ME TABOLIC PANEL$W/EGFR (22200), Ordered on: Ordered Future Order: Lab Order CBC (INC LUDES DIFF/PLT) (9799), Ordered on: Ordered Future Order: Lab Order HEMOGLOB IN A1c (496), Ordered on: Ordered Future Order: Lab Order GLUCOSE (483), Or dered on: Ordered Future Order: Lab Order ELECTROL YTE PANEL (70539), Ordered on: Ordered Future Order: Lab Order UREA NIT ROGEN (BUN) (294), Ordered on: Ordered Future Order: Lab Order CREATINI NE W/EGFR (375), Ordered on: Ordered Future Order: Lab Order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 Dr. Duffy.Referral letter given for Urologist if Dr. Duffy not doing f/u testing. 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 Related to Syncope, unspecified syncope type Pt did not get labs done prior to appt. Pt finished script for 50,000IU weekly for 6 weeks and continues to take Vitamin D3 2000IU daily.Encouraged pt to have labs done, f/u pending.F/U in 6 months and prn. Related to Vitamin D deficiency Will decrease Nicode rm patch to 14mg/day.Continue to wean off cigarettes. Monitor smoking.Pt to call office if needing refill of Nicoderm patch or if wanting to decrease to Nicoderm 7mg daily. F/U prn. Related to Tobacco abuse heat and/or ice to t he areatylenol and/or motrin for the discomfortgentle stretching Related to Pain in right leg Reviewed labs from , Vitamin D 13.9.Take Vitamin D 50,000 IU once a week for 6 weeks.Take Vitamin D3 2000IU daily.Order given for repeat labs in 8 weeks with appt to follow. Related to Vitamin D deficiency Rest. Drink plenty o f fluids. Strep negative. Counseled pt on viral illness. Salt water gargles. Recommend Claritin daily prn. Tylenol or motrin prn. F/U in office if symptoms persist or worsen. Related to Pharyngitis, unspecified etiology Discussed recent nimo delines for pap exams. Self breast exams. Healthy diet. Exercise daily, cardio and weights. Recommend Calcium 1200-1500mg, Vitamin D 800-2000IU and multivitamin daily. Counseled pt on seatbelt use, smoke detectors in the home, avoid distractions while driving, dental visits every 6 months, annual eye exams.Order given for screening mammogram, f/u pending.Order given for screening labs, f/u pending. Related to Routine gynecological examination Lesions removed as n oted. No sequelae. Wound care instructions given. Sent to pathology. FU pending path results. Related to Atypical mole Lesions removed as n oted. No sequelae. Wound care instructions given. Related to Skin tag Discussed risks and benefits. Will schedule for removal. Related to Skin tag Discussed risks and benefits. Will schedule for removal. Related to Skin lesion Discussed recent nimo delines for pap exams. Self breast exams. Healthy diet. Exercise daily, cardio and weights. Recommend Calcium 1200-1500mg, Vitamin D 800-2000IU and multivitamin daily. Counseled pt on seatbelt use, smoke detectors in the home, avoid distractions while driving, dental visits every 6 months, annual eye exams.Order given for diagnostic mammogram right breast, f/u pending. Related to Routine gynecological examination Patient labs reveale d an elevation in WBC, which is likely believed to be due to steroid use. Patient got repeat today and it was lower. No signs of new infection or mention of fevers or chills. Patient EKG redone and was completely normal today as well. Advised patient of the complications with being a smoker and healing. Patient states she has cut back significantly and is planning to stop. Patient cleared without restrictions for surgery. Related to Overactive bladder Sinus infections can by caused by viruses, bacteria or both. If you were placed on an antibiotic please take prescription completely as written. You may take mucinex, dayquil and nyquil as needed for symptoms as discussed at this appointment. If you were prescribed a nasal steroid please use as directed. Take tylenol or ibuprofen as needed for pain, discomfort or fevers. Please return to the [facility] if symptoms do not improve after 7 days. Go to the ER if you develop increased pain, hearing loss, shortness of breath, chest pain or tongue swelling. Related to Sinus pressure Discussed recent nimo delines for pap exams. Self breast exams. Healthy diet. Exercise daily, cardio and weights. Recommend multivitamin daily. Counseled pt on seltbelt use, smoke dectors in the home, avoid distractions while driving, dental visits every 6 months, annual eye exams.Aptima culture sent. Order given for screening STI labs, f/u pending. 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 She is uncomfortable and in pain. She is seeing rheumatology. Will refer for functional capacity testing to submit for disability paperwork. Related to Fibromyalgia see assessment and plan Related to Cough See A/P Related to Pneum onia of left lower lobe due to infectious organism increase fluidssalt water garglesresttylenol and/or motrin as needed for discomfort Related to Acute pharyngitis, unspecified Recommend gargling Related to Ac carisa pharyngitis, unspecified Severe lower abdomin al pain for a week. Patient can hardly move during exam. Will refer for CT of the abdomen immediately. Patient also needs to FU with GI and rheumatology as discussed at previous appt. Further orders/recommendations based on CT results. Related to Lower abdominal pain Patient states that she has been given this diagnosis previously. I do not find documentation of this. She does, however, state that she hurts all over in multiple locations. Will refer to rheumatology for evaluation and treatment. Related to Fibromyalgia Will refer to GI for evaluation and treatment. This has apparently been present for over 6 years. Patient has not undergone treatment for this. Will likely need EGD for evaluation. Await their recommendations. Related to GERD without esophagitis see assessment and plan Related to Weight gain see A/P Related to ROUTI NE MEDICAL EXAM see Plan Details Related to Head ache see Plan Details Related to Acut e sinusitis Prescribe medications Review medication side effects Prescribe medications Related to IRREGULAR MENSTRUATION Review medication side effects R elated to IRREGULAR MENSTRUATION Assessments Type Assessment Date assessment Acute right-sided low back pain with right-sided sciatica [facility] treated with norflex at that timewill start prednisone and have the patient continue the muscle relaxntcontinue OTC treatment for the symptoms prescription sent note for work given will continue to monitor follow up if symptoms persist and/or worsen Patient Care Teams Name Effective Dates (start - stop) Status Members No Information
--- OUTSIDE RECORDS SUMMARY | 2024-06-10 07:00 | XMS_ITS ---
Author Organization [facility] Address [address] [place], [place] [id number] Care Team Providers Care Plaster Tender Name Role Phone Marisol Canales Primary Care Provider Allergies Allergen (clinical drug ingredient) Drug/Non Drug Allergy documented on EMR Reaction Allergy Type Onset Date Status duloxetine Cymbalta nausea and vomiting Drug Allergy Active naproxen Naproxen rash Drug Allergy Active nickel Nickel Unknown Allergy Active Penicillin Unknown Drug Allergy Active Reason For Referral Reason management Diagnosis 1 Chronic pain syndrom e (G89.4) Diagnosis 2 Fibromyalgia (M79.7) Referral Organization Main Referring Provider First Name Marisol Referring Provider Last Name [facility] Referring Provider Speciality Internal edicine Referred Provider Michele [facility] Referred Provider Specialty Pain Managem ent Referral Priority Routine Reason Previously seen by Mell Rodriges, needs to establish Diagnosis 1 Major depression (F3 2.9) Referral Organization Main Referring Provider First Name Marisol Referring Provider Last Name [facility] Referring Provider Speciality Internal edicine Referred Organization Main Referred Provider Hebert Reyes Referred Address [address] [place], [id number], Referred Provider Specialty Nurse Sj saavedra General Notes Faustina Montoya 06/05 10:58:02 AM >Patient already established with Adrianna, follow up appointment scheduled on 07/07/24. Referral Priority Routine Referral Appointment Date 07/07/2024 Reason worsening frequency, has hx of aneurysm and brain surgery Diagnosis 1 Frequent headaches ( R51.9) Referral Organization Main Referring Provider First Name Marisol Referring Provider Last Name [facility] Referring Provider Speciality Internal edicine Referred Provider Natividad Moise Neuro logmaggi, Gaurav Referred Provider Specialty Neurology Referral Priority Routine REASON FOR VISIT 4 week Fibromyalgia, HLD Medications Medication SIG (Take, Route, Frequency, Duration) Notes Start Date End Date Status Albuterol Sulfate HFA 108 (9 0 Base) MCG/ACT 2 puffs as needed Inhalation every 4 hrs for 17 days Active Fish Oil 1000 MG TAKE 1 CAPSULE BY MOUTH EVERY DAY FOR 90 DAYS for 90 Active amLODIPine Besylate 10 MG 1 tablet Orall y Once a day for 90 days Active Losartan Potassium 100 MG 1 tablet Orall y Once a day for 90 days Active Atorvastatin Calcium 40 MG 1 tablet Oral ly Once a day for 90 days Active Amitriptyline HCl 10 MG 3 tablet at bedt angel Oral Once a day for 30 days Active Omeprazole 40 mg 1 capsule by mouth twice daily for 90 days Active hydroCHLOROthiazide 25 MG 1 tablet in th e morning Oral Once a day for 90 days Not-Taking Social History Sex Assigned At : Social History Observation Description Sex Assigned At Female Vital Signs Temperature 97.8 degrees Fahrenheit 06/11/19 25 Weight 251.5 lbs 06/10/2024 Height 64.00 in 06/10/2024 BMI 43.17 kg/m2 06/10/2024 Blood pressure systolic 123 mm Hg 06/11/19 25 Blood pressure diastolic 84 mm Hg 025 Heart Rate 83 /min 06/10/2024 Respiratory Rate 18 /min 06/10/2024 Oximetry 94 % 06/10/2024 Weight-kg 114.08 kg 06/10/2024 Height-cm 162.56 cm 06/10/2024 pain is all over her bodyCole Marce lundberg 06/10/2024 10:53:31 AM EDT > Encounters Encounter Location Date Provider Diagnosis Main [address] [place], [place] [id number] 06/10/2024 Marisol Parker Fibromyalgia M79.7 ; Hyperlipidemia E78.5 ; Chronic pain syndrome G89.4 ; Major depression F32.9 and Frequent headaches R51.9 Assessments Encounter Date Diagnosis (ICD Code) Assessment Notes Treatment Notes Treatment Clinical Notes Section Notes 06/10/2024 Fibromyalgia (ICD-10 - M79.7) Not improving. I will increase amitriptyline to 30 mg daily and aslos refer to pain management for further management. 06/10/2024 Hyperlipidemia (ICD-10 - E78.5) Stable. f/u with repeat labs in 6 months 06/10/2024 Chronic pain syndrome (ICD-10 - G89.4) 06/10/2024 Major depression (ICD-10 - F32.9) Previously seen by . I will refer back to for further management. Pt agrees 06/10/2024 Frequent headaches (ICD-10 - R51.9) Reports worsening headache with water therapy and also reports similar to when she was diagnosed with brain aneurysm. I will get CT head and CTA brain to rule out any serious etiology given her prior hx and also refer to neurologist to establish care. Other differentials include migraine but pt also on amitriptyline. Plan Of Treatment Medication Medication Name Sig Start Date Stop Date Notes Amitriptyline HCl 10 MG 3 tablet at bedt angel Oral Once a day for 30 days Treatment Notes Assessment Notes Fibromyalgia Not improving. I yolie l increase amitriptyline to 30 mg daily and aslos refer to pain management for further management. Hyperlipidemia Stable. f/u with rep eat labs in 6 months Major depression Previously seen by Mell Rodriges. I will refer back to for further management. Pt agrees Frequent headaches Reports worsening headache with water therapy and also reports similar to when she was diagnosed with brain aneurysm. I will get CT head and CTA brain to rule out any serious etiology given her prior hx and also refer to neurologist to establish care. Other differentials include migraine but pt also on amitriptyline. Pending Test Test Name Order Date CTA HEAD W CONTRAST 06/10/2024 CT head/brain wo con 06/10/2024 Referrals Referral Date Details 06/10/2024 06/10/2024, manageme nt, [facility] 06/10/2024 06/10/2024, Previous ly seen by , needs to establish, Hebert Reyes, [address], [place], [id number], 06/10/2024 06/10/2024, worsenin g frequency, has hx of aneurysm and brain surgery, Ehad Natividad [facility] Next Appt Details Follow Up: 4 Weeks, Reason: Fibromyalgia and headaches Provider Name:Hebert Reyes , 07/07/2024 11:30:00 AM, [address] [place], [place], [id number], Provider Name:Marisol Parker, 07/15/2024 10:00:00 AM, [address] [place], [id number], Progress Notes * Juliana FRANCOISDOB:1980 (43 yo F)Acc No.[id number]:06/10/2024 Medical Note Patient: Juliana MATOS Provider: Pam Canales MD :1980 A ge:43 Y S ex:Female Date:06/10/2024 Address:[facility] [address], [id number] Subjective: * Chief Complaints: * 4 week Fibromyalgia, HLD * HPI: I nterim History: Fibromyalgia f/u: Pt started on Amitriptyline 25 mg daily on last appt 05/12/2024 She also states that her fibromyalgia medications are not helping, not much difference. Aquatic therapy helps when she is doing it but it hurts Has allergy to Cymbalta. Tried gabapentin and lyrica in the past but no help HLD f/u: Tolerating Statin well. Last lab work: 11/2023 normal Last sunday she recieved a new diagnosis of skin cancer (SCC) on her head. 07-31-24 she will be having surgery to remove, she already sees oncology. She also has been getting frequent headaches, especially during water therapy. She has hx of brain aneurysm and had similar headaches in the past 2 years ago (June 2022). * ROS: N egative except mentioned above in the HPI. * Medical History: * Surgical History: C holecystectomy 2016Tonsillectomy and adenoidectomy 2015Bladder Suspension 2009EXTENSIVE HYSTERECTOMY 2009Brain Surgery - [facility] 06/2022scope olonoscopy- cancer cells removed and polyps 2023 * Hospitalization/Major Diagno stic Procedure: S ee Above * Family History: F ather: alive, factor 5, diagnosed with Heart Disease, Diabetes. M other: alive, Thyroid disorder, pancreatic disorder. P aternal Grand Father: , diagnosed with Heart Disease. Paternal Grand Mother: , factor 5, emphysema. M aternal Grand Father: , Dementia, diagnosed with Diabetes. M aternal Grand Mother: , diagnosed with Cancer. B modest[place]: alive. S frederick: alive. * Social History: S exual History: F amily Planning A re you or your partner planning on becoming in the next year if not already ? N o * Medications: T akingOmeprazole 40 mg Capsule Delayed Release 1 capsule by mouth twice daily Losartan Potassium 100 MG Tablet 1 tablet Orally Once a day Atorvastatin Calcium 40 MG Tablet 1 tablet Orally Once a day amLODIPine Besylate 10 MG Tablet 1 tablet Orally Once a day Albuterol Sulfate HFA 108 (90 Base) MCG/ACT Aerosol Solution 2 puffs as needed Inhalation every 4 hrs Fish Oil 1000 MG Capsule TAKE 1 CAPSULE BY MOUTH EVERY DAY FOR 90 DAYS Amitriptyline HCl 25 MG Tablet 1 tablet at bedtime Oral Once a day Taking Omeprazole 40 mg Capsule Delayed Release 1 capsule by mouth twice daily Taking Losartan Potassium 100 MG Tablet 1 tablet Orally Once a day Taking Atorvastatin Calcium 40 MG Tablet 1 tablet Orally Once a day Taking amLODIPine Besylate 10 MG Tablet 1 tablet Orally Once a day Taking Albuterol Sulfate HFA 108 (90 Base) MCG/ACT Aerosol Solution 2 puffs as needed Inhalation every 4 hrs Taking Fish Oil 1000 MG Capsule TAKE 1 CAPSULE BY MOUTH EVERY DAY FOR 90 DAYS Taking Amitriptyline HCl 25 MG Tablet 1 tablet at bedtime Oral Once a day Not-Taking/PRNhydroCHLOROthiazide 25 MG Tablet 1 tablet in the morning Oral Once a day Medication List reviewed and reconciled with the patientNot-Taking/PRN hydroCHLOROthiazide 25 MG Tablet 1 tablet in the morning Oral Once a day Medication List reviewed and reconciled with the patient * Allergies: N ickel: AllergyCymbalta: nausea and vomiting - AllergyPenicillin: AllergyNaproxen: rash - Allergyno[Allergies Verified] Objective: * Vitals: T emp:97.8F, Wt:251.5lbs, Ht: 64.00 in, BMI:43.17Index, BP:123/84mm Hg, HR:83/min, RR:18/min, Pain scale:91-10, Oxygen sat %:94%, Wt-k.08 kg, Ht-cm: 162.56 cm, Body Surface Area: 2.27. pain is all over her body Marce Schilling 06/10/2024 10:53:31 AM EDT > . * Examination: G eneral Examination: G eneral appearance: alert, pleasant, well-nourished and in no acute distress. Head: normocephalic, atraumatic. Eyes: pupils equal, round, reactive to light and accommodation. Skin: skin is warm and dry, with no rashes, good skin turgor and normal hair distribution. Heart: regular rate and rhythm without murmurs, gallops, clicks or rubs. Lungs: clear to auscultation bilaterally, with good air movement and no rales, rhonchi or wheezes. Extremities: normal extremity with no clubbing, cyanosis or edema , full range of motion. Psych: alert and oriented x 3 , cooperative with exam , normal affect / mood , speech is clear and coherent. C QM Exceptions: Currently taking Aspirin: A spirin Use: N o Assessment: * Assessment: 1. F ibromyalgia - M79.7 (Primary) 2 . H yperlipidemia - E78.5 ?3. C hronic pain syndrome - G89.4 4 . M ajor depression - F32.9 ? 5 . F requent headaches - R51.9 Plan: * Treatment: 2. H yperlipidemia Notes: Stable. f/u with repeat labs in 6 months 3. C hronic pain syndrome Referral To: [facility] Reason:management 4. M ajor depression Notes: Previously seen by . I will refer back to for further management. Pt agrees ? Referral To:Hebert Reyes Nurse Practitioner Reason:Previously seen by , needs to establish 5. F requent headaches I maging: CTA HEAD W CONTRAST * ?Imaging: CT head/brain wo con* Marisol Canales 06/10/2024 11: 21:43 AM EDT > worsening headaches, hx of aneurysms * Notes: Reports worsening headache with water therapy and also reports similar to when she was diagnosed with brain aneurysm. I will get CT head and CTA brain to rule out any serious etiology given her prior hx and also refer to neurologist to establish care. Other differentials include migraine but pt also on amitriptyline.?&#16 0;? Referral To:Gaurav Moise Neurology??Neurology ?Reason:worsening frequency, has hx of aneurysm and brain surgery * Procedure Codes: 3 079F HTN DIAST BP = 80-156096S HTN SYST BP < 130 * Follow Up: 4 Weeks (Reason: Fibromyalgia and headaches) * Billing Information: * Visit Code: 35307 Office Visit Est 30-39 minutes. * Procedure Codes: 3079F HTN DIAST BP = 80-89. 3074F HTN SYST BP < 130. * Sign off status: Completed true * Provider: Pam Canales MD Date: 06/10/2024 Generated for Petty lundberg/Noah/Romitting on: 06/24/2024 04:15 PM EDT History and Physical Notes * HPI (History of Present Illness) Category Sub-Category Detail Notes Category Not es Interim History Fibromyalgia f/u: Pt started on Amitriptyline 25 mg daily on last appt 05/12/2024 She also states that her fibromyalgia medications are not helping, not much difference. Aquatic therapy helps when she is doing it but it hurts Has allergy to Cymbalta. Tried gabapentin and lyrica in the past but no help HLD f/u: Tolerating Statin well. Last lab work: 11/2023 normal Last sunday she recieved a new diagnosis of skin cancer (SCC) on her head. 07-31-24 she will be having surgery to remove, she already sees oncology. She also has been getting frequent headaches, especially during water therapy. She has hx of brain aneurysm and had similar headaches in the past 2 years ago (June 2022) Examination Category Sub-Category Detail Notes Category Not es General Examination General appearance: alert, pleasant, well-nourished and in no acute distress. Head: normocephalic, atraumatic. Eyes: pupils equal, round, reactive to light and accommodation. Skin: skin is warm and dry, with no rashes, good skin turgor and normal hair distribution. Heart: regular rate and rhythm without murmurs, gallops, clicks or rubs. Lungs: clear to auscultation bilaterally, with good air movement and no rales, rhonchi or wheezes. Extremities: normal extremity with no clubbing, cyanosis or edema , full range of motion. Psych: alert and oriented x 3 , cooperative with exam , normal affect / mood , speech is clear and coherent. CQM Exceptions Currently taking Aspirin: Aspirin Use:: No Consultation Request Notes Referral Date Referring Provider Referred Provider Not es 06/10/2024 Marisol Canales Pain Management, m anagement 06/10/2024 Marisol Canales Eliverta Previously seen by , needs to establish 06/10/2024 Marisol Canales N eurology, Ehad worsening frequency, has hx of aneurysm and brain surgery
[2024-06-24 16:20] VITALS: BP 119/86; PULSE 98; TEMP 36.5; O2SAT 99; BMI 42.9
--- OUTSIDE RECORDS SUMMARY | 2024-06-24 16:21 | XMS_ITS | CCD ---
Author Organization [facility] Care Team Providers Care Screen Door Maker Name Role Phone Rodrigo DO LawrenceRon M Attending Provider [phone] NON STAFF Primary Care Provider Unavailabl e [...] Unavailable SHAMMO, SHAD Primary Care Unavailable HARTLEY . ZELALEM Consulting Unavailable GUIDRY ., DR OMAR Benitez Consulting Unavailable [facility] Attending Unava ilable [facility] Admitting Unava ilable SHAMMO, SHAD Primary Care Unavailable IRAM ROTH Consulting Unavailable IRAM ROTH Attending Unavailable SIRI, DR ALVAREZ Primary Care Unavailable IRAM ROTH [...] JES, LASHAUN Admitting Unavailable WEST, DR MARCE V Consulting Unavailable JES, LASHAUN Consulting Unavailable SHAMMO, SHAD Consulting Unavailable SHAMMO, SHAD Admitting Unavailable SHAMMO, SHAD Attending Unavailable SHAMMO, SHAD Primary Care Unavailable SHAMMO, SHAD Admitting Unavailable SHAMMO, SHAD Consulting Unavailable SHAMMO, SHAD Attending Unavailable SHAMMO, SHAD Primary Care Unavailable MISC, DR ALVAREZ Attending Unavailable SHAMMO, SHAD Consulting Unavailable MISC, DR ALVAREZ Primary Care Unavailable MISC, DR ALVAREZ Admitting [...] Referring Unavailable SHAMMO, SHAD Primary Care Unavailable YU GUERRIER Attending Unavailable VOLODYMYR, BHUMI Referring Unavailable VOLODYMYR, [place] Primary Care Unavailable JES, LASHAUN Attending Unavailable ROOSEVELT FORBES Attending Unavailable Shammo PLANT AND MACHINERY VALUER-ORAL PATHOLOGIST, [place] Primary Care Provider Volodymyr PLANT [employer] MACHINERY VALUER-MANAGER SIX SIGMA, Celeste Primary Care Provider [phone] Bibi, Judydori Attending Unavailable Ngirabakunzi, Kadori Primary Care Unavailable Sharmin Walker Unavailable CHAU WILLIAMSON Attending Unavailable RASHAD, MARISOL Referring Unavailable RASHAD, MARISOL Referring Unavailable VOLODYMYR, BHUMI Primary Care Unavailable RASHAD, MARISOL Referring Unavailable VOLODYMYR, [place] Primary Care Unavailable DB ELIZABETH Admitting Unavailable DB ELIZABETH Attending Unavailable VOLODYMYR, BHUMI Primary Care Unavailable VOLODYMYR, BHUMI Referring Unavailable VOLODYMYR, [place] Primary Care Unavailable Volodymyr PL[employer] MACHINERY VALUER-MANAGER SIX SIGMA, Celeste Primary Care Provider [phone] Allergies Allergy Classification Reported Allergen(s) Allergy Type Date of Onset Reaction(s) Facility (2 sources) DULoxetine Drug Allergy 12-21-19 [facility] (5 sources) Leucine; Translations: [NICKEL] Drug Allergy 08-05-19 19 [facility] (4 sources) Penicillin Drug Allergy 05-28-19 21 Unknown [facility] (18 sources) DULoxetine; Translations: [duloxetine] Drug Allergy 12-29-19 Vomiting [facility] (20 sources) Naproxen; Translations: [naproxen] Drug Allergy 06-09-19 17 Hives [facility] (19 sources) Penicillins; Translations: [Penicillins] Allergy to substance 03-20-19 17 Shortness Of Breath, Rash [facility] (1 source) Unable to Assess Drug allergy (disorder) 12-21-19 [facility] Repository (3 sources) penicillAMINE Drug Allergy anaphylaxis [employer] Other (11 sources) nickel Drug Allergy 08-05-19 anaphylaxis [facility] (1 source) Bee pollen; Translations: [BEE POLLEN] Propensity to adverse reactions to drug (disorder) 01-12-20 [facility] Repository (2 sources) DULoxetine Drug Allergy 06-03-19 [facility] (2 sources) nickel sulfate Drug Allergy 06-03-19 25 [facility] Medications Current Medications Medication Drug Class(es) Dates Sig (Normalized) Sig (Original) acetaminophen 500 mg oral tablet (10 sources) Start: 10-17-2021 End: 12-05-2023 take 1 tablet by mouth every six hours as needed for pain acetaminophen (TYLENOL EXTRA STRENGTH) 500 mg tablet Take 1 tablet (500 mg total) by mouth every 6 (six) hours as needed for pain. 30 tablet 10/17/2021 12/05/2023 Discontinued (Therapy completed) Tylenol prn Acti ve [id number] actuat albuterol 0.09 mg/actuat metered dose inhaler (1 source) beta2-Adrenergic Agonist Start: 03-09-2023 take 2 puff(s) by inhalation every four to six hours as needed Albuterol Sulfate HFA 108 (90 Base) MCG/ACT 2 puffs as needed Inhalation every 4-6 hours for 14 days Mar, Active amitriptyline hydrochloride 50 mg oral tablet (15 sources) Tricyclic Antidepressant Start: 11-29-2022 amitriptyline (ELAVIL) 50 mg tablet Indications: Fibromyalgia One capsule at 8 PM each night 90 tablet 1 11/29/2022 Active amitriptyline (E lavil) 25 MG tablet Take by mouth at bedtime Active amLODIPine 5 mg oral tablet (12 sources) Dihydropyridine Calcium Channel Estella Start: 12-25-2021 take 2 tablets by mouth once daily amLODIPine (NORVASC) 5 mg tablet Indications: hypertension Take 2 tablets (10 mg total) by mouth nightly Indications: high blood pressure. 12/25/2021 Active amLODIPine (Norv asc) 10 MG tablet Take by mouth Daily Active atorvastatin 20 mg oral tablet (16 sources) HMG-CoA Reductase Inhibitor Start: 04-24-2022 take 2 tablets by mouth in the morning atorvastatin (LIPITOR) 20 mg tablet Take 2 tablets (40 mg total) by mouth in the morning. 04/24/2022 Active Start: 04-24-2022 take 1 tablet by roselyn th in the morning atorvastatin (LIPITOR) 20 mg tablet Take 1 tablet (20 mg total) by mouth in the morning. 04/24/2022 Active take 1 tablet by roselyn th once daily atorvastatin (Lipitor) 40 MG tablet Take 40 mg by mouth Daily Active bisacodyl 5 mg delayed release oral tablet (4 sources) Stimulant Laxative Start: 12-05-2023 bisacodyL ( DULCOLAX, BISACODYL,) 5 mg EC tablet Indications: Encounter for screening colonoscopy Please see instructional sheet given by physicians office. 2 tablet 12/05/2023 Active Dicyclomine (3 sources) Anticholinergic Dicyclomine HCl 10mg Active Fish Oils (5 sources) omega-3 (FISH OI L) 300 MG capsule Take by mouth Daily Active Fish Oil Active FLUoxetine 20 mg oral capsule (8 sources) Serotonin Reuptake Inhibitor Start: 11-29-2022 take 1 capsule by mouth in the morning FLUoxetine (PROzac) 20 mg capsule Indications: Fibromyalgia Take 1 capsule (20 mg total) by mouth in the morning. 90 capsule 1 11/29/2022 Active fluticasone / salmeterol (7 sources) Corticosteroid, beta2-Adrenergic Agonist End: 12-05-2023 take 1 puff(s) by inhalation in the morning fluticasone propion-salmeteroL (ADVAIR) 100-50 mcg/dose DISKUS Inhale 1 puff in the morning and 1 puff before bedtime. 12/05/2023 Discontinued (Therapy completed) take 1 puff(s) by in halation in the morning fluticasone propion-salmeteroL (ADVAIR) 100-50 mcg/dose DISKUS Inhale 1 puff in the morning and 1 puff before bedtime. Active take 1 puff(s) by in halation in the morning fluticasone propion-salmeteroL (ADVAIR) 100-50 mcg/dose DISKUS Inhale 1 puff in the morning and 1 puff before bedtime. 0 Active hydroCHLOROthiazide 25 mg oral tablet (2 sources) Thiazide Diuretic Start: 10-22-2023 take 1 tablet by mouth once daily hydroCHLOROthiazide (HYDRODIURIL) 25 mg tablet Take 1 tablet (25 mg total) by mouth daily. 10/22/2023 Active losartan potassium 100 mg oral tablet (16 sources) Angiotensin 2 Receptor Estella Start: 09-12-2022 take 100 mg by mouth once daily Losartan Active 100 MG PO Daily September 12, 2022 12:00am Start: 12-05-2021 take 2 tablets by mo [facility] once daily losartan (COZAAR) 50 mg tablet Take 2 tablets (100 mg total) by mouth nightly. 12/05/2021 Active losartan (Cozaar ) 50 MG tablet Take by mouth Active Losartan Potassi um Active methylPREDNISolone 4 mg oral tablet (1 source) Corticosteroid Start: 03-09-2023 methylPREDNISolone 4 MG as directed Orally for 6 Mar, Active naloxone hydrochloride 40 mg/ml nasal spray (5 sources) Opioid Antagonist Start: 07-07-2022 naloxone (NARCAN) 4 mg/actuation spray,non-aerosol nasal spray Administer 1 spray (4 mg total) into alternating nostrils as needed for opioid reversal. 1 each 07/07/2022 Active naloxone (NARCAN) 4 mg/actuation spray,non-aerosol nasal spray (2 sources) Start: 07-07-2022 End: 12-05-2023 naloxone (NARCAN) 4 mg/actuation spray,non-aerosol nasal spray Administer 1 spray (4 mg total) into alternating nostrils as needed for opioid reversal. 1 each 07/07/2022 12/05/2023 Discontinued (Therapy completed) Start: 07-07-2022 naloxone (NARC AN) 4 mg/actuation spray,non-aerosol nasal spray Administer 1 spray (4 mg total) into alternating nostrils as needed for opioid reversal. 1 each 07/07/2022 Active omega 7-bfe-izw-fish oil (FI SH OIL) 300-1,000 mg capsule,delayed release(DR/EC) (10 sources) Start: 05-22-2022 omega 3-dha-ep a-fish oil (FISH OIL) 300-1,000 mg capsule,delayed release(DR/EC) Take 1 capsule by mouth in the morning. 05/22/2022 Active Start: 05-22-2022 omega 3-dha-ep a-fish oil (FISH OIL) 300-1,000 mg capsule,delayed release(DR/EC) Take 1 capsule by mouth in the morning. 0 05/22/2022 Active [place]-3 Fatty Acids-Fish Oil (1 source) Start: 09-12-2022 take 1 capsule by mouth once daily [place]-3 Fatty Acids-Fish Oil Active 1 CAP PO Daily September 12, 2022 12:00am omeprazole 40 mg delayed release oral capsule (15 sources) Proton Pump Inhibitor Start: 12-07-2021 take 1 capsule by mouth once daily before breakfast omeprazole (PriLOSEC) 40 mg capsule Take 1 capsule (40 mg total) by mouth every morning before breakfast. 12/07/2021 Active oseltamivir 75 mg oral capsule (1 source) Neuraminidase Inhibitor Start: 03-09-2023 take 1 capsule by mouth every twelve hours Oseltamivir Phosphate 75 MG 1 capsule Orally Twice a day for 5 day(s) Mar, Active rimegepant 75 mg disintegrating oral tablet (1 source) rimegepant (NURT EC ODT) 75 mg tablet,disintegrat ing Dissolve on tongue. 0 Active sod sulf-pot chloride-mag sulf 1.479-0.188- 0.225 gram tablet (2 sources) Start: 12-05-2023 sod sulf-pot chloride-mag sulf 1.479-0.188- 0.225 gram tablet Indications: Encounter for screening colonoscopy Please see instructional sheet given by physicians office. 24 tablet 12/05/2023 Active solifenacin succinate 5 mg oral tablet (8 sources) Cholinergic Muscarinic Antagonist Start: 03-20-2024 take 1 tablet by mouth in the morning solifenacin (VESICARE) 5 mg tablet Take 1 tablet (5 mg total) by mouth in the morning. 30 tablet 4 04/25/2023 Active tiZANidine 2 mg oral tablet (10 sources) Central alpha-2 Adrenergic Agonist Start: 11-29-2022 [...] Onset: 3 Episodic Coagulation and hemorrhagic disorders (15 sources) Activated protein C resistance; Translations: [Heterozygous Factor V Leiden mutation] Onset: 7 Chronic Disorders of lipid metabolism (6 sources) Hyperlipidemia, unspecified; Translations: [Mixed hyperlipidemia] Onset: 3 Chronic Endometriosis (12 sources) Endometriosis (clinical); Translations: [Endometriosis, unspecified] Onset: 7 06-08-2016 Chronic Esophageal disorders (20 sources) Gastroesophageal reflux disease; Translations: [Gastro-esophageal reflux disease without esophagitis] Onset: 7 Chronic Essential hypertension (3 sources) Essential (primary) hypertension; Translations: [ESSENTIAL PRIMARY HYPERTENSION] Onset: 2 Chronic Genitourinary symptoms and ill-defined conditions (20 sources) Mixed incontinence; Translations: [Mixed urinary incontinence] Onset: 3 04-25-2023 Chronic Headache; including migraine (12 sources) Migraine; Translations: [Migraine, unspecified, not intractable, without status migrainosus] Onset: 7 06-08-2016 Chronic Immunizations and screening for infectious disease (1 source) Contact with and (suspected) exposure to other viral communicable diseases Episodic Mood disorders (2 sources) Major depressive disorder, single episode, unspecified; Translations: [Major depressive disorder. single episode. unspecified] Onset: 5 Chronic Neoplasms of unspecified nature or uncertain behavior (2 sources) Neoplastic disease; Translations: [Neoplasm of unspecified behavior of bone, soft tissue, and skin] 06-02-2024 Episodic Other and ill-defined cerebrovascular disease (12 sources) Intracranial aneurysm; Translations: [Cerebral aneurysm, nonruptured] Onset: 2 07-05-2022 Chronic Other and unspecified benign neoplasm (2 sources) Melanocytic nevi of other parts of face; Translations: [Benign neoplasm of skin of other and unspecified parts of face] 06-02-2024 Episodic Other gastrointestinal disorders (1 source) Dysphagia, unspecified; [...] PAIN] Onset: 12-10-2021 Episodic Biliary tract disease (12 sources) Cholelithiasis without obstruction; Translations: [Calculus of gallbladder without cholecystitis without obstruction] Onset: 04-07-2019 04-07-2019 Episodic Epilepsy; convulsions (12 sources) Seizure; Translations: [Unspecified convulsions] Onset: 06-08-2016 06-08-2016 Episodic Intestinal infection (1 source) Viral intestinal infection, unspecified; Translations: [VIRAL INTESTINAL INFECTION UNSPEC] Onset: 08-01-2021 Episodic Mood disorders (10 sources) Mood disorders Onset: 07-05-2022 07-05-2022 Nausea and vomiting (3 sources) Nausea with vomiting, unspecified; Translations: [NAUSEA WITH VOMITING UNSPECIFIED] Onset: 07-28-2021 Episodic Nonspecific chest pain (7 sources) Other chest pain; Translations: [OTHER CHEST PAIN] Onset: 12-06-2021 Episodic Other and unspecified benign neoplasm (1 source) Polyp of colon; Translations: [Polyp of colon] Onset: 12-31-2023 Episodic Other connective tissue disease (5 sources) Fibromyalgia; Translations: [FIBROMYALGIA] Onset: 06-08-2016 Episodic Other connective tissue disease (3 sources) Pain in left hand; Translations: [PAIN IN LEFT HAND] Onset: 09-23-2021 Episodic Other connective tissue disease (12 sources) Fibromyalgia; Translations: [Fibromyalgia] Onset: 06-08-2016 06-08-2016 Episodic Other gastrointestinal disorders (12 sources) Dysphagia; Translations: [Dysphagia, unspecified] Onset: 06-08-2016 06-08-2016 Episodic Other lower respiratory disease (4 sources) Other forms of dyspnea; Translations: [OTHER FORMS OF DYSPNEA] Onset: 01-31-2022 Episodic Other nervous system disorders (1 source) Ataxia, unspecified; Translations: [Ataxia, unspecified] Onset: 12-20-2021 Episodic Other screening for suspected conditions (not mental disorders or infectious disease) (9 sources) Encounter for screening mammogram for malignant neoplasm of breast; Translations: [Encounter for screening for other suspected endocrine disorder] Onset: 11-03-2021 Episodic Residual codes; unclassified (12 sources) Family history of stroke due to aneurysm; Translations: [Family history of stroke] Onset: 03-16-2022 03-16-2022 Episodic Unclassified (1 source) LOW BACK PAIN, UNSPECIFIED; Translations: [LOW BACK PAIN, UNSPECIFIED] Onset: 01-10-2022 Unclassified (1 source) Contact with and (suspected) exposure to covid-19 Z20.822 Results Test Name Value Interpretation Reference Range Facility No Panel Informationon 06-02 Type of biopsy: tangential Informed consent: discussed and consent obtained Informed consent comment: The risks and benefits of the biopsy were discussed. Risks include but are not limited to bleeding, infection, scarring, pain, and nerve damage. An opportunity to ask questions prior to the procedure was permitted and all questions were answered. Patient was prepped and draped in usual sterile fashion: area cleansed with alcohol. Anesthesia: the lesion was anesthetized in a standard fashion Anesthetic: 1% lidocaine w/ epinephrine 1-100,000 buffered w/ 8.4% NaHCO3 Instrument used: DermaBlade Hemostasis achieved with: electrodesiccation Outcome: patient tolerated procedure well Outcome comment: The specimen was placed in a prelabeled formalin container to be sent for pathology Post-procedure details: sterile dressing applied and wound care instructions given Post-procedure details comment: Emphasized need to contact clinic for any signs of infection, uncontrollable bleeding, or complications. Dressing type: bandage Additional details: Photo taken Amount of lidocaine used: 1.0 cc [employer] [facility] Type of biopsy: tangential Informed consent: discussed and consent obtained Informed consent comment: The risks and benefits of the biopsy were discussed. Risks include but are not limited to bleeding, infection, scarring, pain, and nerve damage. An opportunity to ask questions prior to the procedure was permitted and all questions were answered. Patient was prepped and draped in usual sterile fashion: area cleansed with alcohol. Anesthesia: the lesion was anesthetized in a standard fashion Anesthetic: 1% lidocaine w/ epinephrine 1-100,000 buffered w/ 8.4% NaHCO3 Instrument used: DermaBlade Hemostasis achieved with: electrodesiccation Outcome: patient tolerated procedure well Outcome comment: The specimen was placed in a prelabeled formalin container to be sent for pathology Post-procedure details: sterile dressing applied and wound care instructions given Post-procedure details comment: Emphasized need to contact clinic for any signs of infection, uncontrollable bleeding, or complications. Dressing type: bandage Additional details: Photo taken Amount of lidocaine used: 1.0 cc [employer] [facility] Type of biopsy: tangential Informed consent: discussed and consent obtained Informed consent comment: The risks and benefits of the biopsy were discussed. Risks include but are not limited to bleeding, infection, scarring, pain, and nerve damage. An opportunity to ask questions prior to the procedure was permitted and all questions were answered. Patient was prepped and draped in usual sterile fashion: area cleansed with alcohol. Anesthesia: the lesion was anesthetized in a standard fashion Anesthetic: 1% lidocaine w/ epinephrine 1-100,000 buffered w/ 8.4% NaHCO3 Instrument used: DermaBlade Hemostasis achieved with: electrodesiccation Outcome: patient tolerated procedure well Outcome comment: The specimen was placed in a prelabeled formalin container to be sent for pathology Post-procedure details: sterile dressing applied and wound care instructions given Post-procedure details comment: Emphasized need to contact clinic for any signs of infection, uncontrollable bleeding, or complications. Dressing type: bandage Additional details: Photo taken Amount of lidocaine used: 1.0 cc [employer] [facility] Office Visiton 01-21-2024 Follow-up visit [id number] Jt Pérez 1980 F Date Provider Department Center 01/21/2024 ROOSEVELT SABILLON TED [facility] Family History Problem Relation Age of Onset Heart attack Father Heart attack Paternal Grandfather Stroke Paternal Grandfather Family Status - Relation Status Age at Father Paternal Grandfather Level of Service:71349 SD OFFICE/OUTPATIENT ESTABLISHED MOD MDM 30 MIN Normal [facility] Surgical Pathologyon 024 Surgical Pathology Normal [facility] Comment on above: Result Comment: [facility] [address] [place] [address] Surgical Pathology Consultation Patient Name:ARACELI PÉREZ:1980 (Age: 43)Gender:FTaken:4Reported:01/09/2024hysician(s):Db Elizabeth D.O. ([phone])Copy To: Rec. #:[id number]: #[id number] Final Pathologic Diagnosis Cecal colon polyp; polypectomy: Tubular adenoma (1 fragment). Unremarkable colonic mucosa (2 fragments). Report Electronically Signed Out deep/01/09/2024Rubio Burgess MD Interpretation performed at [facility], [address] [place], [place] [address], License number: [id number]. Clinical History Screening. 1. cold snared a polyp in the cecum. Gross Description Received in formalin labeled PÉREZ, polyp in cecum are 18 christine delicate to friable soft tissue bits, 0.1-0.4 cm next with vegetative material. The specimens are filtered and submitted in single cassette. (1,ns,[id number], m8) TB tgb/01/01/2024NSK Specimen(s) Received Cecal colon polyp Fee Codes(s): 1; 32882 36on 11-05-2023 36 Concerning cholester ol levels ---- Message ----- From: Lashaun Andre NP Sent: 10/30/2023 11:21 AM EDT To: Kayla Crouch MA Subject: RE: Scan So let her know her cholesterol levels are very good, much better than last year with lipitor Normal [facility] Telephoneon 11-05-2023 Telephone [id number] PérezJt 1980 F Date Provider Department Center 11/05/2023 [id number], TANA TED [facility] Family History Problem Relation Age of Onset Heart attack Father Heart attack Paternal Grandfather Stroke Paternal Grandfather Family Status - Relation Status Age at Father Paternal Grandfather Normal [facility] 37on 10-22-2023 35 Start taking hydrochlorothiazide daily in the morning for blood pressure Please have blood drawn next week to check kidney function and electrolytes and cholesterol level- so you must be fasting for labs Normal [facility] Office Visiton 10-22-2023 Follow-up visit [id number] Jt Pérez 1980 F Date Provider Department Center 10/22/2023 120-LASHAUN ANDRE TED [facility] Family History Problem Relation Age of Onset Heart attack Father Heart attack Paternal Grandfather Stroke Paternal Grandfather Family Status - Relation Status Age at Father Paternal Grandfather Level of Service:70064 SD OFFICE/OUTPATIENT ESTABLISHED LOW MDM 20 MIN Normal [facility] COVID + FLU Quick Testingon 03-01-2023 SARS-CoV-2 (COVID-19) RNA SARAH+probe Ql (Unsp spec) Negative [employer] Other COVID + FLU Quick Testing Negative [employer] Other Young 09-12-2022 L --- Specimen: [id number] Received: 09/12/22 Status: KASSIDY Matrinez Num: [id number] Spec Type: Surgical Subm Dr: Siva You MD Tissues: A Esophagus Biopsy (ESOPHAGUS BX) Procedures: HE/Alfonso, Gross/Micro L4 Age/ Patient Sex Location Account Attending Physician Araceli Pérez 42/F [id number] Siva You MD SPEC NUM: [id number] RECD: 09/12/22 STATUS: KASSIDY MARTINEZ NUM: [id number] SHANNON: 09/12/22- SUBM DR: Siva You MD ENTERED: 09/12/22-1356 [facility] DR: SPEC TYPE: Surgical DEPT: S ORDERED: DHEERAJ, Gross/Micro L4 ORDERED: BELGICA, Gross/Micro L4 Pathological Diagnosis Esophagus, biopsy: - [...] The microscopic examination confirms the diagnosis. Specimen: [id number] Received: 09/12/22 Status: KASSIDY Martinez Num: [id number] Spec Type: Surgical Subm Dr: Siva You MD Tissues: A Esophagus Biopsy (ESOPHAGUS BX) Procedures: DHEERAJ, [place]/Micro L4 Patient: Araceli Pérez [id number] (Continued) Specimen: Received: 09/12/22 (Continued) Signed (signature on file) Rory Jade MD 09/14/22 1155 Specimen: Received: 09/12/22 Status: KASSIDY Martinez Num: [id number] Spec Type: Surgical Subm Dr: Siva You MD Tissues: A Esophagus Biopsy (ESOPHAGUS BX) Procedures: HE/Alfonso, Gross/Micro L4 Patient: Araceli Pérez [id number] (Continued) Specimen: Received: 09/12/22 (Continued) CPT Codes 25218 Specimen: [id number] Received: 09/12/22 Status: KASSIDY Martinez Num: [id number] Spec Type: Surgical Subm Dr: Siva You MD Tissues: A Esophagus Biopsy (ESOPHAGUS BX) Procedures: HE/2, Gross/Micro L4 Patient: Araceli Pérez [id number] (Continued) Signed (signature on file) Rory Jade MD 09/14/22 3205 Normal [facility] LIPID PROFILEon 04-21-2022 CHOL-HDL RATIO NORM SEE BELOW Normal [facility] Comment on above: Result Comment: 3.3 - 4.4 LOW RISK 4.4 - 7.1 AVERAGE RISK 7.1 - 11.0 MODERATE RISK >11.0 HIGH RISK Performed By: #### L IPID, CMP #### [facility] [address] [address] [address] Edil Gayle Cholesterol [Mass/Vol] 247 mg/dL Critically high <=[address] [facility] Comment on above: Performed By: #### L IPID, CMP #### [facility] [address] [address] [address] Edil Gayle Cholesterol in HDL [Mass/Vol] 46 mg/dL Normal 40-[address] [facility] Comment on above: Performed By: #### L IPID, CMP #### [facility] [address] [address] [address] Edil Gayle Cholesterol in LDL [Mass/Vol] 180.6 mg/dL Normal [facility] Comment on above: Performed By: #### L IPID, CMP #### [facility] Laboratory [address] [place] [address] Dr. Edil Gayle Cholesterol.total/C holesterol in HDL [Mass ratio] 5.4 {ratio} Normal [facility] Comment on above: Performed By: #### L IPID, CMP #### [facility] [address] [address] [address] Edil Gayle HDL NORMAL > or = 60 mg/dl - LO W CARDIOVASCULAR RISK <40 mg/dl - HIGH CARDIOVASCULAR RISK Normal [facility] Comment on above: Performed By: #### L IPID, CMP #### [facility] [address] [place] [address] Dr. Edil Gayle LDL CALC NORMAL SEE BELOW Normal [facility] Comment on above: Result Comment: <100 mg/dl OPTIMAL 100 - 129 mg/dl NEAR OR ABOVE OPTIMAL 130 - 159 mg/dl BORDERLINE HIGH 160 - 189 mg/dl HIGH >190 mg/dl VERY HIGH Performed By: #### L IPID, CMP #### [facility] [address] [place] [address] Dr. Edil Gayle Triglyceride [Mass/Vol] 102 mg/dL Normal <=[address] [facility] Comment on above: Performed By: #### L IPID, CMP #### [facility] [address] [address] [address] Edil Gayle VLDL CALC 20.4 mg/dL Normal [facility] Comment on above: Performed By: #### L IPID, CMP #### [facility] [address] [address] [address] Edil Gayle PROF 14(COMP METB)on 023 Albumin [Mass/Vol] 3.4 g/dL Normal 3.4-5.0 [facility] Comment on above: Performed By: #### L IPID, CMP #### [facility] [address] [address] [address] Edil Gayle Albumin/Globulin [Mass ratio] 0.9 {ratio} Normal [facility] Comment on above: Performed By: #### L IPID, CMP #### [facility] [address] [place] [address] Dr. Edil Gayle ALP [Catalytic activity/Vol] 117 U/L Critically high 46-[address] [facility] Comment on above: Performed By: #### L IPID, CMP #### [facility] [address] [place] [address] Dr. Edil Gayle ALT [Catalytic activity/Vol] 25 U/L Normal 14-[address] [facility] Comment on above: Performed By: #### L IPID, CMP #### [facility] [address] [place] [address] Dr. Edil Gayle Anion gap [Moles/Vol] 11.5 mmol/L Normal [facility] Comment on above: Performed By: #### L IPID, CMP #### [facility] [address] [place] [address] Dr. Edil Gayle AST [Catalytic activity/Vol] 16 U/L Normal 15-[address] [facility] Comment on above: Performed By: #### L IPID, CMP #### [facility] [address] [place] [address] Dr. Edil Gayle Bilirubin [Mass/Vol] 0.4 mg/dL Normal 0.2-1.[address] [facility] Comment on above: Performed By: #### L IPID, CMP #### [facility] [address] [address] [address] Edil Gayle Calcium [Mass/Vol] 8.9 mg/dL Normal 8.5-10.1 [facility] Comment on above: Performed By: #### L IPID, CMP #### [facility] [address] [address] [address] Edil Gayle Chloride [Moles/Vol] 106 mmol/L Normal 98-107 [facility] Comment on above: Performed By: #### L IPID, CMP #### [facility] [address] [address] [address] Edil Gayle CO2 [Moles/Vol] 29.8 mmol/L Normal 21.0-32.0 [facility] Comment on above: Performed By: #### L IPID, CMP #### [facility] [address] [place] [address] Dr. Edil Gayle Creatinine [Mass/Vol] 0.58 mg/dL Normal 0.55-1.02 [facility] Comment on above: Performed By: #### L IPID, CMP #### [facility] [address] [place] [address] Dr. Edil Gayle EGFR-AF BARBADIAN >60 Normal >=60 [facility] Comment on above: Performed By: #### L IPID, CMP #### [facility] [address] [place] [address] Dr. Edil Gayle EGFR-NON AF BARBADIAN >60 Normal >=60 [facility] Comment on above: Performed By: #### L IPID, CMP #### [facility] [address] [place] [address] Dr. Edil Gayle Globulin (S) [Mass/Vol] 3.6 g/dL Normal [facility] Comment on above: Performed By: #### L IPID, CMP #### [facility] [address] [place] [address] Dr. Edil Gayle Glucose [Mass/Vol] 103 mg/dL Normal 74-106 [facility] Comment on above: Performed By: #### L IPID, CMP #### [facility] [address] [address] [address] Edil Gayle Potassium [Moles/Vol] 4.3 mmol/L Normal 3.5-5.[address] [facility] Comment on above: Performed By: #### L IPID, CMP #### [facility] [address] [address] [address] Edil Gayle Protein [Mass/Vol] 7.0 g/dL Normal 6.4-8.2 [facility] Comment on above: Performed By: #### L IPID, CMP #### [facility] [address] [address] [address] Edil Gayle Sodium [Moles/Vol] 143 mmol/L Normal 136-145 [facility] Comment on above: Performed By: #### L IPID, CMP #### [facility] [address] [place] [address] Dr. Edil Gayle Urea nitrogen [Mass/Vol] 12.0 mg/dL Normal 7.0-18.[address] [facility] Comment on above: Performed By: #### L IPID, CMP #### [facility] [address] [place] [address] Dr. Edil Gayle Urea nitrogen/Creatinine [Mass ratio] 20.7 mg/mg Normal [facility] Comment on above: Performed By: #### L IPID, CMP #### [facility] [address] [place] [address] Dr. Edil Gayle CULTURE THROATon 04-03-2022 CULTURE THROAT Culture Observations : NORMAL RESPIRATORY JAYLEEN. Normal [facility] Comment on above: Performed By: #### F T4 #### [facility] [address] [place] [address] Dr. Edil Gayle RESPIRATORY PANEL PLUSon Adenovirus Not detected Normal NOT DETECTED [facility] Comment on above: Performed By: #### F T4 #### [facility] [address] [place] [address] Dr. Edil Gayle B. Parapertusis Not detected Normal NOT DETECTED [facility] Comment on above: Performed By: #### F T4 #### [facility] [address] [place] [address] Dr. Edil Velasco Pertussis Not detected Normal NOT DETECTED [facility] Comment on above: Performed By: #### F T4 #### [facility] [address] [place] [address] Dr. Edil Gayle Chlamydia Pneumoniae Not detected Normal NOT DETECTED [facility] Comment on above: Performed By: #### F T4 #### [facility] [address] [place] [address] Dr. Edil Gayle Coronavirus 229E Not detected Normal NOT DETECTED [facility] Comment on above: Performed By: #### F T4 #### [facility] [address] [place] [address] Dr. Edil Gayle Coronavirus HKU1 Not detected Normal NOT DETECTED [facility] Comment on above: Performed By: #### F T4 #### [facility] [address] [place] [address] Dr. Edil Gayle Coronavirus NL63 Not detected Normal NOT DETECTED [facility] Comment on above: Performed By: #### F T4 #### [facility] [address] [place] [address] Dr. Edil Gayle Coronavirus OC43 Not detected Normal NOT DETECTED [facility] Comment on above: Performed By: #### F T4 #### [facility] [address] [place] [address] Dr. Edil Gayle Influenza A H1 Not detected Normal NOT DETECTED [facility] Comment on above: Performed By: #### F T4 #### [facility] [address] [place] [address] Dr. Edil Gayle Influenza A H1 2009 Not detected Normal NOT DETECTED [facility] Comment on above: Performed By: #### F T4 #### [facility] [address] [place] [address] Dr. Edil Gayle Influenza A H3 Not detected Normal NOT DETECTED [facility] Comment on above: Performed By: #### F T4 #### [facility] [address] [place] [address] Dr. Edil Gayle Influenza B Not detected Normal NOT DETECTED [facility] Comment on above: Performed By: #### F T4 #### [facility] [address] [place] [address] Dr. Edil Gayle Metapneumovirus Not detected Normal NOT DETECTED [facility] Comment on above: Performed By: #### F T4 #### [facility] [address] [place] [address] Dr. Edil Gayle Mycoplas. Pneumoniae Not detected Normal NOT DETECTED [facility] Comment on above: Performed By: #### F T4 #### [facility] [address] [place] [address] Dr. Edil Gayle Parainfluenza 1 Not detected Normal NOT DETECTED [facility] Comment on above: Performed By: #### F T4 #### [facility] [address] [place] [address] Dr. Edil Gayle Parainfluenza 2 Not detected Normal NOT DETECTED [facility] Comment on above: Performed By: #### F T4 #### [facility] [address] [place] [address] Dr. Edil Gayle Parainfluenza 3 Not detected Normal NOT DETECTED [facility] Comment on above: Performed By: #### F T4 #### [facility] [address] [place] [address] Dr. Edil Gayle Parainfluenza 4 Not detected Normal NOT DETECTED [facility] Comment on above: Performed By: #### F T4 #### [facility] [address] [place] [address] Dr. Edil Gayle Rhino/Enterovirus Not detected Normal NOT DETECTED [facility] Comment on above: Performed By: #### F T4 #### [facility] [address] [place] [address] Dr. Edil HARTLEY Header 1 RESPIRATORY PANEL: VIRUSES Normal [facility] Comment on above: Performed By: #### F T4 #### [facility] [address] [place] [address] Dr. Edil HARTLEY Header 2 RESPIRATORY PANEL: BACTERIA Normal [facility] Comment on above: Performed By: #### F T4 #### [facility] [address] [address] [address] Edil Gayle RSV Not detected Normal NOT DETECTED [facility] Comment on above: Performed By: #### F T4 #### [facility] [address] [address] [address] Edil Gayle SARS-CoV-2 (COVID-19) RNA SARAH+probe Ql (Unsp spec) Not detected Normal NOT DETECTED [facility] Comment on above: Performed By: #### F T4 #### [facility] [address] [address] [address] Edil Gayle STREPT SCREENon 04-03-2022 STREP SCREEN A Negative Normal NEGATIVE [facility] Comment on above: Performed By: #### F T4 #### [facility] [address] [place] [address] Dr. Edil Gayle ECHOCARDIO M/2D COMPLETEon 1 04-03-2021 ECHOCARDIO M/2D COMPLETE Patient: ARACELI PÉREZ Exam Date: 01/31/2022 : 1980 Gender:F Ordering : LASHAUN ANDRE Admission #: [id number] Family : Order #: [id number] CLICK HERE TO VIEW EXAM ECHOCARDIOGRAM REPORT [...] Borges M.D. on 02/07/2022 at 09:43 Normal [facility] STRESS/REST MULTIon 01-31 DE STRESS/REST MULTI Patient: ARACELI PÉREZ Exam Date: 01/31/2022 : 1980 Gender:F Ordering : LASHAUN ANDRE Admission #: [id number] Family : Order #: [id number] CLICK HERE TO VIEW EXAM RADIOLOGY REPORT [...] 2. Normal exercise test Dictated by: Marce Ferreira MD on 02/02/2022 at 11:40 Approved by: Marce Ferreira MD on 02/02/2022 at 11:41 Normal [facility] MR head/brain wo/w conon MR head/brain wo/w con [facility] [address] [place] [id number] MRI Report Signed Patient: Araceli Pérez MR#: [id number] : 1980 Acct:[id number] Age/Sex: 41 / F ADM Date: 12/20/21 Loc: MR Room: Type: [facility] Attending Dr: Ron Wallace DO Copies to: [...] Efrain Chapman M.D.12/21/2021 8:39 AM Dictation Location: [place] [address] Transcribed By: [facility] 12/21/21838 Dictated By: Efrain Chapman II, MD 12/21/21815 Signed By: 12/21/21838 [facility] XR LSPINE W_OBLS AND FLEX_EX Ton 12-21-2021 [...] no dynamic instability Electronically authenticated by: MARCE FERREIRA Date: 2021-12-21 07:[address] [facility] US SINGLE QUAD RT UPPERon US SINGLE [...] No acute abnormality Electronically authenticated by: MARCE FERREIRA Date: 2021-12-11 08:[address] [facility] XR CHEST 2 Von 12-06-2021 XR CHEST [...] No acute disease. Electronically authenticated by: MARCE FERREIRA Date: 2021-12-06 15:35 Normal [facility] MAMM SCREEN 3D TISHA CADon 11-08-2021 MG MAMM SCREEN 3D TISHA CAD Patient: ARACELI PÉREZ Exam Date: 11/08/2021 : 1980 Gender:F Ordering : [employer] Admission #: [id number] Family : Order #: [id number] CLICK HERE TO VIEW EXAM RADIOLOGY REPORT PROCEDURE: MAMMOGRAM SCREENING 3D BILATERAL CAD COMPARISON: MG MAMM SCREEN 3D TISHA CAD, 07/19/2020. INDICATIONS: Screening mammography Calculator Name NCI Breast Cancer Risk Assessment Tool 5 Year Breast Cancer Risk 0.50% Lifetime Breast Cancer Risk 6.50% Personal Breast Cancer No Personal Ovarian Cancer No Treatments None Family Cancers None LOCATION: [facility] BREAST COMPOSITION: Scattered areas fibroglandular density. FINDINGS: [...] LUMP SHOULD BE BIOPSIED. Dictated by: Marce Ferreira MD on 11/09/2021 at 07:52 Approved by: Marce Ferreira MD on 11/09/2021 at 07:53 Normal [facility] CBC AUTO DIFFon 11-01-2021 BASO # 0.1 103/ul Normal 0.0-0.[address] [facility] Comment on above: Performed By: #### F T4 #### [facility] [address] [address] [address] Edil Gayle Basophils/100 WBC (Bld) 1.2 % Normal 0.2-2.[address] [facility] Comment on above: Performed By: #### F T4 #### [facility] [address] [place] [address] Dr. Edil Gayle EO # 0.3 103/ul Normal 0.0-0.[address] [facility] Comment on above: Performed By: #### F T4 #### [facility] [address] [place] [address] Dr. Edil Gayle Eosinophils/100 WBC (Bld) 2.7 % Normal 0.9-7.[address] [facility] Comment on above: Performed By: #### F T4 #### [facility] [address] [place] [address] Dr. Edil Gayle Erythrocyte distribution width (RBC) [Ratio] 12.8 % Normal 11.0-15.[address] [facility] Comment on above: Performed By: #### F T4 #### [facility] [address] [place] [address] Dr. Edil Gayle Hematocrit (Bld) [Volume fraction] 46.5 % Normal 36.0-48.[address] [facility] Comment on above: Performed By: #### F T4 #### [facility] [address] [place] [address] Dr. Edil Gayle Hemoglobin (Bld) [Mass/Vol] 15.5 g/dL Normal 12.0-16.[address] [facility] Comment on above: Performed By: #### F T4 #### [facility] [address] [place] [address] Dr. Edil Gayle IG # 0.02 10e3/ul Normal 0.00-0.[address] [facility] Comment on above: Performed By: #### F T4 #### [facility] [address] [place] [address] Dr. Edil Gayle IG % 0.2 % Normal 0.0-0.5 [facility] Comment on above: Performed By: #### F T4 #### [facility] [address] [place] [address] Dr. Edil Gayle LYMPH # 2.1 103/ul Normal 1.2-3.8 [facility] Comment on above: Performed By: #### F T4 #### [facility] [address] [place] [address] Dr. Edil Gayle Lymphocytes/100 WBC (Bld) 20.4 % Critically low 20.5-60.[address] [facility] Comment on above: Performed By: #### F T4 #### [facility] [address] [place] [address] Dr. Edil Gayle MANUAL DIFF REQ NO Normal [facility] Comment on above: Performed By: #### F T4 #### [facility] [address] [place] [address] Dr. Edil Gayle MCH (RBC) [Entitic mass] 30.3 pg Normal 26.7-34.0 [facility] Comment on above: Performed By: #### F T4 #### [facility] [address] [place] [address] Dr. Edil Gayle MCHC (RBC) [Mass/Vol] 33.3 g/dL Normal 29.9-35.2 [facility] Comment on above: Performed By: #### F T4 #### [facility] [address] [place] [address] Dr. Edil Gayle MCV (RBC) [Entitic vol] 90.8 fL Normal 81.0-99.0 [facility] Comment on above: Performed By: #### F T4 #### [facility] [address] [place] [address] Dr. Edil Gayle MONO # 0.5 103/ul Normal 0.3-0.8 [facility] Comment on above: Performed By: #### F T4 #### [facility] [address] [place] [address] Dr. Edil Gayle Monocytes/100 WBC (Bld) 5.2 % Normal 1.7-12.0 [facility] Comment on above: Performed By: #### F T4 #### [facility] [address] [place] [address] Dr. Edil Gayle NEUT # 7.3 103/ul Critically high 1.4-6.5 [facility] Comment on above: Performed By: #### F T4 #### [facility] [address] [place] [address] Dr. Edil Gayle Neutrophils/100 WBC (Bld) 70.3 % Normal 43.0-75.0 [facility] Comment on above: Performed By: #### F T4 #### [facility] [address] [address] [address] Edil Gayle Platelet mean volume (Bld) [Entitic vol] 8.8 fL Critically low 9.5-13.[address] [facility] Comment on above: Performed By: #### F T4 #### [facility] [address] [place] [address] Dr. Edil Gayle PLT 294 103/ul Normal 150-450 [facility] Comment on above: Performed By: #### F T4 #### [facility] [address] [address] [address] Edil Gayle RBC 5.12 106/ul Normal 4.20-5.[address] [facility] Comment on above: Performed By: #### F T4 #### [facility] [address] [place] [address] Dr. Edil Gayle WBC 10.3 103/ul Normal 4.0-11.[address] [facility] Comment on above: Performed By: #### F T4 #### [facility] [address] [place] [address] Dr. Edil Gayle FREE T4on 11-01-2021 Free T4 [Mass/Vol] 0.88 ng/dL Normal 0.76-1.46 [facility] Comment on above: Performed By: #### F T4 #### [facility] [address] [place] [address] Dr. Edil Gayle GLYCOHEMOGLOBIN A1Con 2021 ADA RECOMMENDATION SEE BELOW Normal [facility] Comment on above: Result Comment: ADA RECOMMENDED LIMIT 4.0 - 6.0 ADA THERAPEUTIC TARGET < 7.0 ACTION SUGGESTED > 7.0 Performed By: #### A 1C #### [facility] [address] [place] [address] Dr. Edil Gayle Glucose [Mass/Vol] 108 mg/dL Normal [facility] Comment on above: Performed By: #### A 1C #### [facility] [address] [place] [address] Dr. Edil Gayle HbA1c (Bld) [Mass fraction] 5.4 % Normal 4.5-6.2 [facility] Comment on above: Performed By: #### A 1C #### [facility] [address] [address] [address] Edil Gayle LIPID PROFILEon 11-01-2021 CHOL-HDL RATIO NORM SEE BELOW Normal [facility] Comment on above: Result Comment: 3.3 - 4.4 LOW RISK 4.4 - 7.1 AVERAGE RISK 7.1 - 11.0 MODERATE RISK >11.0 HIGH RISK Performed By: #### T ANA MARIA CMP, LIPID #### [facility] [address] [address] [address] Edil Gayle Cholesterol [Mass/Vol] 246 mg/dL Critically high <=[address] [facility] Comment on above: Performed By: #### T ANA MARIA CMP, LIPID #### [facility] [address] [address] [address] Edil Gayle Cholesterol in HDL [Mass/Vol] 48 mg/dL Normal 40-[address] [facility] Comment on above: Performed By: #### T ANA MARIA CMP, LIPID #### [facility] [address] [address] [address] Edil Gayle Cholesterol in LDL [Mass/Vol] 172.6 mg/dL Normal [facility] Comment on above: Performed By: #### T ANA MARIA CMP, LIPID #### [facility] [address] [address] [address] Edil Gayle Cholesterol.total/C holesterol in HDL [Mass ratio] 5.1 {ratio} Normal [facility] Comment on above: Performed By: #### T ANA MARIA CMP, LIPID #### [facility] [address] [address] [address] Edil Gayle HDL NORMAL > or = 60 mg/dl - LO W CARDIOVASCULAR RISK <40 mg/dl - HIGH CARDIOVASCULAR RISK Normal [facility] Comment on above: Performed By: #### T ANA MARIA CMP, LIPID #### [facility] [address] [address] [address] Edil Gayle LDL CALC NORMAL SEE BELOW Normal [facility] Comment on above: Result Comment: <100 mg/dl OPTIMAL 100 - 129 mg/dl NEAR OR ABOVE OPTIMAL 130 - 159 mg/dl BORDERLINE HIGH 160 - 189 mg/dl HIGH >190 mg/dl VERY HIGH Performed By: #### T SH, CMP, LIPID #### [facility] [address] [place] [address] Dr. Edil Gayle Triglyceride [Mass/Vol] 127 mg/dL Normal <=[address] [facility] Comment on above: Performed By: #### T SH, CMP, LIPID #### [facility] [address] [place] [address] Dr. Edil Gayle VLDL CALC 25.4 mg/dL Normal [facility] Comment on above: Performed By: #### T ANA MARIA, CMP, LIPID #### [facility] [address] [place] [address] Dr. Edil Gayle PROF 14(COMP METB)on 022 Albumin [Mass/Vol] 3.6 g/dL Normal 3.4-5.0 [facility] Comment on above: Performed By: #### T ANA MARIA CMP, LIPID #### [facility] [address] [place] [address] Dr. Edil Gayle Albumin/Globulin [Mass ratio] 1.0 {ratio} Normal [facility] Comment on above: Performed By: #### T ANA MARIA CMP, LIPID #### [facility] [address] [place] [address] Dr. Edil Gayle ALP [Catalytic activity/Vol] 109 U/L Normal 46-116 [facility] Comment on above: Performed By: #### T ANA MARIA, CMP, LIPID #### [facility] [address] [place] [address] Dr. Edil Gayle ALT [Catalytic activity/Vol] 21 U/L Normal 14-59 [facility] Comment on above: Performed By: #### T SH, CMP, LIPID #### [facility] [address] [place] [address] Dr. Edil Gayle Anion gap [Moles/Vol] 10.9 mmol/L Normal [facility] Comment on above: Performed By: #### T SH, CMP, LIPID #### [facility] [address] [place] [address] Dr. Edil Gayle AST [Catalytic activity/Vol] 15 U/L Normal 15-[address] [facility] Comment on above: Performed By: #### T SH, CMP, LIPID #### [facility] [address] [place] [address] Dr. Edil Gayle Bilirubin [Mass/Vol] 0.8 mg/dL Normal 0.2-1.[address] [facility] Comment on above: Performed By: #### T SH, CMP, LIPID #### [facility] [address] [address] [address] Edil Gayle Calcium [Mass/Vol] 9.3 mg/dL Normal 8.5-10.1 [facility] Comment on above: Performed By: #### T SH, CMP, LIPID #### [facility] [address] [place] [address] Dr. Edil Gayle Chloride [Moles/Vol] 104 mmol/L Normal 98-[address] [facility] Comment on above: Performed By: #### T SH, CMP, LIPID #### [facility] [address] [place] [address] Dr. Edil Gayle CO2 [Moles/Vol] 30.6 mmol/L Normal 21.0-32.0 [facility] Comment on above: Performed By: #### T SH, CMP, LIPID #### [facility] [address] [place] [address] Dr. Edil Gayle Creatinine [Mass/Vol] 0.77 mg/dL Normal 0.55-1.[address] [facility] Comment on above: Performed By: #### T SH, CMP, LIPID #### [facility] [address] [place] [address] Dr. Edil Gayle EGFR-AF BARBADIAN >60 Normal >=60 The [facility] Comment on above: Performed By: #### T SH, CMP, LIPID #### [facility] [address] [place] [address] Dr. Edil Gayle EGFR-NON AF BARBADIAN >60 Normal >=[address] [facility] Comment on above: Performed By: #### T SH, CMP, LIPID #### [facility] [address] [place] [address] Dr. Edil Gayle Globulin (S) [Mass/Vol] 3.7 g/dL Normal [facility] Comment on above: Performed By: #### T ANA MARIA CMP, LIPID #### [facility] [address] [address] [address] Edil Gayle Glucose [Mass/Vol] 106 mg/dL Normal 74-106 [facility] Comment on above: Performed By: #### T ANA MARIA CMP, LIPID #### [facility] [address] [place] [address] Dr. Edil Gayle Potassium [Moles/Vol] 4.5 mmol/L Normal 3.5-5.[address] [facility] Comment on above: Performed By: #### T ANA MARIA CMP, LIPID #### [facility] [address] [place] [address] Dr. Edil Gayle Protein [Mass/Vol] 7.3 g/dL Normal 6.4-8.2 [facility] Comment on above: Performed By: #### T ANA MARIA CMP, LIPID #### [facility] [address] [place] [address] Dr. Edil Gayle Sodium [Moles/Vol] 141 mmol/L Normal 136-145 [facility] Comment on above: Performed By: #### T ANA MARIA CMP, LIPID #### [facility] [address] [place] [address] Dr. Edil Gayle Urea nitrogen [Mass/Vol] 11.0 mg/dL Normal 7.0-18.[address] [facility] Comment on above: Performed By: #### T ANA MARIA CMP, LIPID #### [facility] [address] [place] [address] Dr. Edil Gayle Urea nitrogen/Creatinine [Mass ratio] 14.3 mg/mg Normal [facility] Comment on above: Performed By: #### T ANA MARIA CMP, LIPID #### [facility] [address] [place] [address] Dr. Edil Gayle TSHon 11-01-2021 TSH 2.620 uIU/mL Normal 0.358-3.740 [facility] Comment on above: Performed By: #### T SH, CMP, LIPID #### [facility] [address] [address] [address] Edil Gayle CBC AUTO DIFFon 07-28-2021 BASO # 0.1 103/ul Normal 0.0-0.[address] [facility] Comment on above: Performed By: #### C BC #### [facility] [address] [address] [address] Edil Gayle Basophils/100 WBC (Bld) 1.0 % Normal 0.2-2.[address] [facility] Comment on above: Performed By: #### C BC #### [facility] [address] [address] [address] Edil Gayle EO # 0.3 103/ul Normal 0.0-0.[address] [facility] Comment on above: Performed By: #### C BC #### [facility] [address] [place] [address] Dr. Edil Gayle Eosinophils/100 WBC (Bld) 2.9 % Normal 0.9-7.[address] [facility] Comment on above: Performed By: #### C BC #### [facility] [address] [place] [address] Dr. Edil Gayle Erythrocyte distribution width (RBC) [Ratio] 13.0 % Normal 11.0-15.[address] [facility] Comment on above: Performed By: #### C BC #### [facility] [address] [place] [address] Dr. Edil Gayle Hematocrit (Bld) [Volume fraction] 46.3 % Normal 36.0-48.[address] [facility] Comment on above: Performed By: #### C BC #### [facility] [address] [place] [address] Dr. Edil Gayle Hemoglobin (Bld) [Mass/Vol] 15.4 g/dL Normal 12.0-16.[address] [facility] Comment on above: Performed By: #### C BC #### [facility] [address] [place] [address] Dr. Edil Gayle IG # 0.03 10e3/ul Normal 0.00-0.[address] [facility] Comment on above: Performed By: #### C BC #### [facility] [address] [place] [address] Dr. Edil Gayle IG % 0.3 % Normal 0.0-0.[address] [facility] Comment on above: Performed By: #### C BC #### [facility] [address] [place] [address] Dr. Edil Gayle LYMPH # 2.4 103/ul Normal 1.2-3.[address] [facility] Comment on above: Performed By: #### C BC #### [facility] [address] [place] [address] Dr. Edil Gayle Lymphocytes/100 WBC (Bld) 22.4 % Normal 20.5-60.[address] [facility] Comment on above: Performed By: #### C BC #### [facility] [address] [place] [address] Dr. Edil Gayle MANUAL DIFF REQ NO Normal [facility] Comment on above: Performed By: #### C BC #### [facility] [address] [place] [address] Dr. Edil Gayle MCH (RBC) [Entitic mass] 30.9 pg Normal 26.7-34.[address] [facility] Comment on above: Performed By: #### C BC #### [facility] [address] [place] [address] Dr. Edil Gayle MCHC (RBC) [Mass/Vol] 33.3 g/dL Normal 29.9-35.[address] [facility] Comment on above: Performed By: #### C BC #### [facility] [address] [place] [address] Dr. Edil Gayle MCV (RBC) [Entitic vol] 93.0 fL Normal 81.0-99.[address] [facility] Comment on above: Performed By: #### C BC #### [facility] [address] [place] [address] Dr. Edil Gayle MONO # 0.7 103/ul Normal 0.3-0.[address] [facility] Comment on above: Performed By: #### C BC #### [facility] [address] [address] [address] Edil Gayle Monocytes/100 WBC (Bld) 6.9 % Normal 1.7-12.[address] [facility] Comment on above: Performed By: #### C BC #### [facility] [address] [address] [address] Edil Gayle NEUT # 7.1 103/ul Critically high 1.4-6.5 [facility] Comment on above: Performed By: #### C BC #### [facility] [address] [address] [address] Edil Gayle Neutrophils/100 WBC (Bld) 66.5 % Normal 43.0-75.[address] [facility] Comment on above: Performed By: #### C BC #### [facility] [address] [place] [address] Dr. Edil Gayle Platelet mean volume (Bld) [Entitic vol] 9.4 fL Critically low 9.5-13.[address] [facility] Comment on above: Performed By: #### C BC #### [facility] [address] [place] [address] Dr. Edil Gayle PLT 247 103/ul Normal 150-[address] [facility] Comment on above: Performed By: #### C BC #### [facility] [address] [place] [address] Dr. Edil Gayle RBC 4.98 106/ul Normal 4.20-5.40 [facility] Comment on above: Performed By: #### C BC #### [facility] [address] [place] [address] Dr. Edil Gayle WBC 10.7 103/ul Normal 4.0-11.0 The [facility] Comment on above: Performed By: #### C BC #### [facility] [address] [place] [address] ABD/PELV W CONon [...] by: MICHELLE HENRY Date: 2021-07-28 11:[address] [facility] ER URINE PROFILEon 2 Bilirubin Ql (U) Negative Normal NEGATIVE [facility] Comment on above: Performed By: #### E RUR #### [facility] [address] [place] [address] Dr. Edil Gayle Clarity (U) CLEAR Normal CLEAR [facility] Comment on above: Performed By: #### E RUR #### [facility] [address] [place] [address] Dr. Edil Gayle Color (U) YELLOW Normal YELLOW [facility] Comment on above: Performed By: #### E RUR #### [facility] [address] [place] [address] Dr. Edil NAQVI A micrscopic examination will be performed if indicated. Normal The [facility] Comment on above: Performed By: #### E RUR #### [facility] [address] [place] [address] Dr. Edil Gayle Glucose Ql (U) Negative Normal NEGATIVE The [facility] Comment on above: Performed By: #### E RUR #### [facility] [address] [place] [address] Dr. Edil Gayle Hemoglobin Ql (U) Negative Normal NEGATIVE [facility] Comment on above: Performed By: #### E RUR #### [facility] [address] [place] [address] Dr. Edil Gayle Ketones Ql (U) Negative Normal NEGATIVE [facility] Comment on above: Performed By: #### E RUR #### [facility] [address] [place] [address] Dr. Edil Gayle LEUKOCYTES Negative Normal NEGATIVE [facility] Comment on above: Performed By: #### E RUR #### [facility] [address] [place] [address] Dr. Edil Gayle Nitrite Ql (U) Negative Normal NEGATIVE [facility] Comment on above: Performed By: #### E RUR #### [facility] [address] [place] [address] Dr. Edil Gayle pH (U) 6.0 [pH] Normal 5-[address] [facility] Comment on above: Performed By: #### E RUR #### [facility] [address] [place] [address] Dr. Edil Gayle SPEC GRAVITY 1.030 Abnormal 1.005-<=1.[address] [facility] Comment on above: Performed By: #### E RUR #### [facility] [address] [place] [address] Dr. Edil Gayle UA PROTEIN Negative Normal NEGATIVE/ TRACE The [facility] Comment on above: Performed By: #### E RUR #### [facility] [address] [place] [address] Dr. Edil Gayle UR MICRO IND NOT INDICATED Normal [facility] Comment on above: Performed By: #### E RUR #### [facility] [address] [place] [address] Dr. Edil Gayle Urobilinogen Qn (U) 0.2 {Tee'U}/dL Normal 0.2 - 1. [address] [facility] Comment on above: Performed By: #### E RUR #### [facility] [address] [place] [address] Dr. Edil Gayle PROF CHEM 8 (BAS METB)on Anion gap [Moles/Vol] 9.8 mmol/L Normal [facility] Comment on above: Performed By: #### F T4 #### [facility] [address] [address] [address] Edil Gayle Calcium [Mass/Vol] 8.4 mg/dL Critically low 8.5-10.1 Th e [facility] Comment on above: Performed By: #### F T4 #### [facility] [address] [address] [address] Edil Gayle Chloride [Moles/Vol] 106 mmol/L Normal 98-[address] [facility] Comment on above: Performed By: #### F T4 #### [facility] [address] [address] [address] Edil Gayle CO2 [Moles/Vol] 29.1 mmol/L Normal 21.0-32.0 [facility] Comment on above: Performed By: #### F T4 #### [facility] [address] [address] [address] Edil Gayle Creatinine [Mass/Vol] 0.78 mg/dL Normal 0.55-1.[address] [facility] Comment on above: Performed By: #### F T4 #### [facility] [address] [address] [address] Edil Gayle EGFR-AF BARBADIAN >60 Normal >=60 [facility] Comment on above: Performed By: #### F T4 #### [facility] [address] [address] [address] Edil Gayle EGFR-NON AF BARBADIAN >60 Normal >=[address] [facility] Comment on above: Performed By: #### F T4 #### [facility] [address] [address] [address] Edil Gayle Glucose [Mass/Vol] 89 mg/dL Normal 74-106 [facility] Comment on above: Performed By: #### F T4 #### [facility] [address] [address] [address] Edil Gayle Potassium [Moles/Vol] 3.9 mmol/L Normal 3.5-5.[address] [facility] Comment on above: Performed By: #### F T4 #### [facility] [address] [address] [address] Edil Gayle Sodium [Moles/Vol] 141 mmol/L Normal 136-145 The [facility] Comment on above: Performed By: #### F T4 #### [facility] [address] [address] [address] Edil Gayle Urea nitrogen [Mass/Vol] 12.0 mg/dL Normal 7.0-18.[address] [facility] Comment on above: Performed By: #### F T4 #### [facility] [address] [address] [address] Edil Gayle Urea nitrogen/Creatinine [Mass ratio] 15.4 mg/mg Normal [facility] Comment on above: Performed By: #### F T4 #### [facility] [address] [address] [address] Edil Gayle ANAon 11-22-2020 RAFIA PATTERN SPECKLED Normal The [facility] Comment on above: Result Comment: The JOSE [...] By: #### 1 0196 #### [facility] [address] RAFIA SCREEN 1:80 Abnormal <1:40,1:40 The [facility] Comment on above: Result Comment: Test performed using JOSE C IFA RAFIA Hep-2 Test, a pre-standardized assay designed for the qualitative and semi-quantitative detection of antinuclear antibodies. Performed By: #### 1 0196 #### [facility] [address] [place] [address], [facility] C REACTIVE PROTEINon 021 CRP [Mass/Vol] 1.9 mg/L Normal 0.0-7.0 [facility] Comment on above: Performed By: #### 9 9744, [id number], [id number] #### [facility] [address] [facility] [place] [address], [facility] CBC W/DIFFon 11-22-2020 ABS IMM GRANS 0.0 10*3/uL Normal 0.0-0.2 [facility] Comment on above: Performed By: #### 5 010, 90151 #### [facility] [address] [facility] [place] [address], [facility] ABS NEUTROPHILS 10.1 10*3/uL High 1.6-7.6 The [facility] Comment on above: Performed By: #### 5 102, 07102 #### [facility] [address] [place] [address], [facility] Basophils (Bld) [#/Vol] 0.1 10*3/uL Normal 0.0-0.2 The [facility] Comment on above: Performed By: #### 5 102, 26249 #### [facility] [address] [place] [address], [facility] Basophils/100 WBC (Bld) 0.8 % Normal 0.0-1.0 The [facility] Comment on above: Performed By: #### 5 102, 15466 #### [facility] [address] [facility] [place] [address], [facility] Eosinophils (Bld) [#/Vol] 0.2 10*3/uL Normal 0.0-0.5 The [facility] Comment on above: Performed By: #### 5 010, 40113 #### [facility] [address] [place] [address], [facility] Eosinophils/100 WBC (Bld) 1.2 % Normal 0.0-6.0 The [facility] Comment on above: Performed By: #### 5 102, 00248 #### [facility] [address] Erythrocyte distribution width (RBC) [Ratio] 13.2 % Normal 11.5-15.0 The [facility] Comment on above: Performed By: #### 5 102, 04479 #### [facility] [address] [facility]. [address] Hematocrit (Bld) [Volume fraction] 47.8 % High 36.0-45.0 The [facility] Comment on above: Performed By: #### 102, 02914 #### [facility] [address] Hemoglobin (Bld) [Mass/Vol] 16.1 g/dL High 12.0-15.0 The [facility] Comment on above: Performed By: #### 5 102, 52916 #### [facility] [address] IMMATURE GRANS 0.3 % Normal 0.0-1.0 [facility] Comment on above: Performed By: #### 5 102, 86715 #### [facility] [address] Lymphocytes (Bld) [#/Vol] 2.3 10*3/uL Normal 1.2-4.0 The [facility] Comment on above: Performed By: #### 5 102, 13798 #### [facility] [address] Lymphocytes/100 WBC (Bld) 17.1 % Low 20.0-45.0 The [facility] Comment on above: Performed By: #### 5 102, 30396 #### [facility] [address] [facility]. [address] MCH (RBC) [Entitic mass] 30.8 pg Normal 27.0-33.0 The [facility] Comment on above: Performed By: #### 102, 09004 #### [facility] [address] [facility] [address] MCHC (RBC) [Mass/Vol] 33.7 g/dL Normal 32.0-35.0 The [facility] Comment on above: Performed By: #### 5 102, 76784 #### [facility] [address] [place] [address], [facility] MCV (RBC) [Entitic vol] 91.4 fL Normal 82.0-98.0 The [facility] Comment on above: Performed By: #### 102, 91800 #### [facility] [address] [place] [address], [facility] Monocytes (Bld) [#/Vol] 0.7 10*3/uL Normal 0.1-1.0 The [facility] Comment on above: Performed By: #### 5 102, 96525 #### [facility] [address] [facility]. [address] MONOS 5.0 % Normal 5.0-12.0 The [facility] Comment on above: Performed By: #### 5 102, 56943 #### [facility] [address] [place] [address], [facility] Neutrophils/100 WBC (Bld) 75.6 % High 40.0-72.0 The [facility] Comment on above: Performed By: #### 102, 28142 #### [facility] [address] [facility] [place] [address], [facility] Nucleated RBC/100 WBC (Bld) [Ratio] 0 % Normal 0-0 The [facility] Comment on above: Performed By: #### 5 102, 83482 #### [facility] [address] [place] [address], [facility] PLAT CNT 303 10*3/uL Normal 150-400 The [facility] Comment on above: Performed By: #### 5 0103, 40252 #### [facility] [address] [place] [address], [facility] RBC (Bld) [#/Vol] 5.23 10*6/uL High 3.80-5.00 [facility] Comment on above: Performed By: #### 5 0103, 31542 #### [facility] [address] [place] [address], [facility] WBC (Bld) [#/Vol] 13.31 10*3/uL High 4.00-10.60 [facility] Comment on above: Performed By: #### 5 0103, 53155 #### [facility] [address] [place] [id number] 11-22-2020 CYCLIC CIT PEP 4 Units Normal 0-19 [facility] Comment on above: Result Comment: INTE [...] be monitored and testing repeated. Performed By: [employer] [address] [place] [id number] Lending Manager: Olga Duval MD HAND LEFT 3 [facility] 11-22-2020 HAND LEFT 3 V[facility] Department of Radiology [address] [place] [address] ===== Patient Name: ARACELI PÉREZ : 1980 Sex: F Age: Race: White Pt. [facility] Patient Status: D Ordered Date: 11/22/2020 10:50:00 AM Completed Date: 11/22/2020 10:54 AM Requesting Provider: DANYA ROTHMAN Attending Provider: DANYA ROTHMAN Report Copy To: Signs & Symptoms: M25.50 Pain in unspecified joint I10 History: Lissette Comments: Evaluate Exam: HAND LEFT 3 [facility] ===== HAND LEFT 3 S 11/22/2020 10:54 [...] Early findings of osteoarthritis. Electronically signed: Neftali Ralph. Transcribed by: [email or web address], User Resident: Electronically Signed by: NEFTALI RALPH @ 11/23/2020 09:30 AM Normal The [facility] Comment on above: Order Comment: Evalu ate HAND RIGHT 3 [facility] HAND RIGHT 3 [facility] Department of Radiology [address] [place] [id number] ===== Patient Name: ARACELI PÉREZ : 1980 Sex: F Age: Race: White Pt. Location: [facility] Patient Status: D Ordered Date: 11/22/2020 10:50:00 AM Completed Date: 11/22/2020 10:54 AM Requesting Provider: DANYA ROTHMAN Attending Provider: DANYA ROTHMAN Report Copy To: Signs & Symptoms: M25.50 Pain in unspecified joint I10 History: Lissette Comments: Evaluate Exam: HAND RIGHT 3 [facility] ===== HAND RIGHT 3 [facility] 11/22/2020 10:54 AM [...] Approved by:Josiane Fletcher11/23/2020 9:43 AM. I, Neftali Ralph,have reviewed the image(s) and agree with the findings in this report. Electronically signed: Neftali Ralph. Transcribed by: [email or web address], User Resident: JOSIANE LAWRENCE Electronically Signed by: NEFTALI RALPH @ 11/23/2020 12:29 PM I personally read this/these film(s) with this resident Normal The [facility] Comment on above: Order Comment: Evalu bhaun QUEZADA BLon 11-22-2020 IgA [Mass/Vol] 410 mg/dL Normal 60-413 [facility] Comment on above: Performed By: #### 9 9744, 06470, 83296 #### [facility] [address] [place] [address], [facility] IgG [Mass/Vol] 908 mg/dL Normal 591-1540 [facility] Comment on above: Performed By: #### 9 9744, 51058, 53648 #### [facility] [address] [place] [address], [place] IgM [Mass/Vol] 58 mg/dL Normal 54-285 [facility] Comment on above: Performed By: #### 9 9744, 45888, 69093 #### [facility] [address] [place] [address], [facility] RHEUMATOID FACTOR SERUMon RA <20 Normal 0-20 [facility] Comment on above: Performed By: #### 9 [id number], [id number], [id number] #### [facility] [address] [place] [address], [place] SEDIMENTATION RATEon 021 SED RATE 4 mm/hr Normal 0-20 The [facility] Comment on above: Performed By: #### 5 [id number], [id number] #### [facility] [address] [place] [address], [facility] t cell subset analysison CD3 % 86.24 % Normal 65.00-90.00 The [facility] Comment on above: Order Comment: This test was developed and its performance characteristics determined by the [facility]. It has not been cleared or approved by the U.S. Food and Drug Administration. Performed By: #### 9 [id number] #### [facility] [address] CD3 ABSOLUTE 1963 cells/mm3 Normal 760-2130 [facility] Comment on above: Order Comment: This test was developed and its performance characteristics determined by the [facility] Flow Cytometry [facility]. It has not been cleared or approved by the U.S. Food and Drug Administration. Performed By: #### 9 0116 #### [facility] [address] CD4 % 67.10 % Normal 40.00-70.00 The [facility] Comment on above: Order Comment: This test was developed and its performance characteristics determined by the [facility] Flow Cytometry [facility]. It has not been cleared or approved by the U.S. Food and Drug Administration. Performed By: #### 9 [id number] #### [facility] [address] CD4 ABSOLUTE 1527 cells/mm3 High 430-1185 [facility] Comment on above: Order Comment: This test was developed and its performance characteristics determined by the [facility] Flow Cytometry [facility]. It has not been cleared or approved by the U.S. Food and Drug Administration. Performed By: #### 9 [id number] #### [facility] [address] CD4:CD8 RATIO 3.79 Normal 1.00-4.00 The [facility] Comment on above: Order Comment: This test was developed and its performance characteristics determined by the [facility] Flow Cytometry [facility]. It has not been cleared or approved by the U.S. Food and Drug Administration. Performed By: #### 9 [id number] #### [facility] [address] [place] [address], [facility] CD8 % 17.70 % Normal 15.00-40.00 The [facility] Comment on above: Order Comment: This test was developed and its performance characteristics determined by the [facility] Flow Cytometry [facility]. It has not been cleared or approved by the U.S. Food and Drug Administration. Performed By: #### 9 [id number] #### [facility] [address] [place] [address], [facility] CD8 ABSOLUTE 403 cells/mm3 Normal 180-865 The [facility] Comment on above: Order Comment: This test was developed and its performance characteristics determined by the [facility] Flow Cytometry [facility]. It has not been cleared or approved by the U.S. Food and Drug Administration. Performed By: #### 9 [id number] #### [facility] [address] [place] [address], [facility] Vital Signs Date Time Vital Sign Value Performing Clinician Facility 12-25-2023 12:14-0500 Body height 162.[address] [facility] 12-25-2023 12:14-0500 Body mass index (BMI) [Ratio] 46.35 kg/m2 Pm 1 [facility] 12-25-2023 12:14-0500 Body weight 122.[address] [facility] 12-05-2023 09:41-0400 Body mass index (BMI) [Ratio] 42.89 kg/m2 Yu Guerrier [employer] MACHINERY VALUER-ORAL PATHOLOGIST Work Phone: [facility] 12-05-2023 09:41-0400 Body weight 113.4 kg Yu Walkeroll [employer]ACH[employer] VALUER-ORAL PATHOLOGIST Work Phone: [facility] 12-05-2023 09:41-0400 Diastolic blood pressure 77 mm[Hg] Yu Guerrier [employer]ACH[employer] VALUER-ORAL PATHOLOGIST Work Phone: [facility] 12-05-2023 09:41-0400 Heart rate 83 /min Yu Guerrier [employer]ACH[employer] VALUER-ORAL PATHOLOGIST Work Phone: [facility] 12-05-2023 09:41-0400 Systolic blood pressure 125 mm[Hg] Yu Guerrier [employer]ACH[employer] VALUER-ORAL PATHOLOGIST Work Phone: [facility] 06-01-2023 10:32-0400 Body height 162.6 cm Irwin Rodriguez MD Work Phone: [facility] 06-01-2023 10:32-0400 Body mass index (BMI) [Ratio] 43.06 kg/m2 Irwin Rodriguez MD Work Phone: [facility] [employer] [facility] 06-01-2023 10:32-0400 Body temperature 98.29 [degF] Irwin Rodriguez MD Work Phone: [facility] [employer] [facility] 06-01-2023 10:32-0400 Body weight 113.85 kg Irwin Rodriguez MD Work Phone: [facility] [employer] [facility] 06-01-2023 10:32-0400 Diastolic blood pressure 101 mm[Hg] Irwin Rodriguez MD Work Phone: [facility] [employer] [facility] 06-01-2023 10:32-0400 Heart rate 78 /min Irwin Rodriguez MD Work Phone: [facility] [employer] [facility] 06-01-2023 10:32-0400 Respiratory rate 18 /min Irwin Rodriguez MD Work Phone: [facility] [employer] [facility] 06-01-2023 10:32-0400 SaO2% (BldA) [Mass fraction] 100 % Irwin Rodriguez MD Work Phone: [facility] [employer] [facility] 06-01-2023 10:32-0400 Systolic blood pressure 145 mm[Hg] Irwin Rodrigeuz MD Work Phone: [facility] [employer] [facility] 04-25-2023 12:38-0400 Body height 162.6 cm Db Rivera MD Work Phone: [facility] [employer] [facility] 04-25-2023 12:38-0400 Body mass index (BMI) [Ratio] 42.05 kg/m2 Db Rivera MD [facility] 04-25-2023 12:38-0400 Body weight 111.13 kg Db Rivera MD [facility] 04-25-2023 12:38-0400 Diastolic blood pressure 99 mm[Hg] Db Rivera MD [facility] 04-25-2023 12:38-0400 Heart rate 93 /min Db [facility] 04-25-2023 12:38-0400 Systolic blood pressure 146 mm[Hg] Db Rivera MD [facility]: [facility] 03-16-2023 10:58-0500 Body height 162.6 cm [facility] 03-16-2023 10:58-0500 Body mass index (BMI) [Ratio] 42.05 kg/m2 [facility] 03-16-2023 10:58-0500 Body weight 111.13 kg P[facility] 03-01-2023 14:45-0500 Body height 162.56 cm Kisha Barkley Other [employer] Other 03-01-2023 14:45-0500 Body mass index (BMI) [Ratio] 42.05 kg/m2 Kisha Barkley Other [employer] Other 03-01-2023 14:45-0500 Body temperature 97.5 [degF] Kisha Barkley Other [employer] Other 03-01-2023 14:45-0500 Body weight 111.13 kg Kisha Barkley Other [employer] Other 03-01-2023 14:45-0500 Respiratory rate 18 /min Kisha Barkley Other [employer] Other 03-01-2023 14:45-0500 SaO2% (BldA) [Mass fraction] 99 % Kisha Barkley Other [employer] Other 10-26-2022 09:00-0400 Body height 162.56 cm Albaro Wilson Other [employer] Other 10-26-2022 09:00-0400 Body mass index (BMI) [Ratio] 43.25 kg/m2 Albaro Wilson Other [employer] Other 10-26-2022 09:00-0400 Body weight 114.31 kg Albaro Wilson Other [employer] Other 10-26-2022 09:00-0400 Diastolic blood pressure 80 mm[Hg] Albaro Wilson Other [employer] Other 10-26-2022 09:00-0400 Systolic blood pressure 122 mm[Hg] Albaro Wilson Other [employer] Other 09-12-2022 14:20-0400 Diastolic blood pressure 70 mm[Hg] [facility] 09-12-2022 14:20-0400 Heart rate 70 /min [place] 09-12-2022 14:20-0400 Respiratory rate 16 /min [facility] 09-12-2022 14:20-0400 SaO2% (BldA) [Mass fraction] 97 % [facility] 09-12-2022 14:20-0400 Systolic blood pressure 131 mm[Hg] [facility] 09-12-2022 12:54-0400 Body height 162.56 cm [place] 09-12-2022 12:54-0400 Body temperature 98.2 [degF] [facility] 09-12-2022 12:54-0400 Body weight 113.39 kg [place] Encounters Encounter Date Encounter Type Care Provider Facility Start: 06-16-2024 End: 06-16-2024 Telephone encounter Christy Vidal Neurology, A Department of [facility] Comment on above: Question appointment Start: 06-05-2024 ambulatory [facility] Start: 06-02-2024 End: 06-02-2024 Bamboo flowsomari Williamson MD Work Phone: [facility] Start: 06-02-2024 End: 06-02-2024 Bamboo flowsomari Williamson MD Work Phone: [facility] Start: 06-02-2024 End: 06-02-2024 Office outpatient new 20 minutes Chau Williamson MD Work Phone: [facility] Comment on above: Melanocytic nevus of face, other location (Primary Dx); Neoplasm of unspecified behavior of bone, soft tissue, and skin Start: 06-02-2024 End: 06-02-2024 ambulatory CHAU WILLIAMSON Not Available Start: 05-28-2024 End: 05-28-2024 ambulatory Greyson Lincoln Start: 05-15-2024 ambulatory [facility] Start: 01-21-2024 End: 01-21-2024 ambulatory [facility] Start: 01-11-2024 End: 01-11-2024 Telephone encounter Fabiola Berman [facility] Start: 12-31-2023 End: 12-31-2023 [facility] Start: 12-25-2023 End: 12-25-2023 ambulatory [facility] Pat Phone Call Provider 1 [facility] - Pre Admit Start: 12-25-2023 End: 12-25-2023 ambulatory [facility] Start: 12-05-2023 End: 12-05-2023 Patient encounter procedure Yu Guerrier [employer]ACH[employer] VALUER-ORAL PATHOLOGIST Work Phone: [facility] Comment on above: Encounter for screen ing colonoscopy (Primary Dx) Start: 12-05-2023 End: 12-05-2023 ambulatory [facility] Walter GUERRI[facility] Start: 11-20-2023 End: 11-20-2023 Telephone encounter Yu Guerrier [employer]ACHINERY VALUER-ORAL PATHOLOGIST Work Phone: [facility] Start: 10-22-2023 End: 10-22-2023 ambulatory LASHAUN ANDRE [facility] Start: 06-01-2023 End: 06-01-2023 Documentation procedure [facility] Start: 06-01-2023 End: 06-01-2023 Office outpatient visit 15 minutes Irwin Rodriguez MD Work Phone: [facility] Comment on above: Factor 5 Leiden muta tion, heterozygous ([facility]) (Primary Dx) Start: 04-25-2023 End: 04-25-2023 Office outpatient visit 15 minutes Db Rivera MD Work Phone: [facility] Comment on above: 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 Admit Start: 03-01-2023 End: 03-01-2023 ambulatory Kisha Barkley Other [employer] Other Start: 03-01-2023 Office outpatient visit 25 minutes Kisha Barkley [facility] Start: 10-26-2022 End: 10-26-2022 ambulatory Albaro Wilson Other [employer] Other Start: 10-26-2022 Office outpatient visit 15 minutes Albaro Wilson [facility] Start: 09-19-2022 End: 09-19-2022 ambulatory Albaro Wilson Other [employer] Other Start: 09-19-2022 Telephone encounter [facility] Start: 09-12-2022 End: 09-12-2022 ambulatory Siva You Facility:[facility] Start: 09-12-2022 End: 09-12-2022 Admission to same day surgery center [facility] Work Phone: Start: 09-12-2022 End: 09-12-2022 ambulatory NON STAFF [facility] Work Phone: Start: 06-07-2022 ambulatory SHAD SHAMMO Facility:H 1 Start: 04-21-2022 End: 04-22-2022 ambulatory SHAD SHAMMO Facility:[facility]1 Start: 04-03-2022 End: 04-03-2022 ambulatory SHAD SHAMMO Facility:[facility]1 Start: 01-31-2022 End: 02-01-2022 ambulatory LASHAUN ANDRE Facility:[facility]1 Start: 01-10-2022 End: 01-11-[address] OMAR GUIDRY . Facility:[facility] Start: 12-20-2021 End: 12-20-2021 ambulatory NON STAFF Facility:[facility] Start: 12-20-2021 End: 12-20-2021 ambulatory NON STAFF [facility] Work Phone: Start: 12-20-2021 End: 12-20-2021 Patient encounter procedure DO Ron Rodrigo Work Phone: [facility] Start: 12-20-2021 End: 12-21-[address] OMAR GUIDRY . Facility:[facility]1 Start: 12-10-2021 End: 12-11-2021 ambulatory SHAD SHAMMO Facility:[facility]1 Start: 12-06-2021 End: 12-07-2021 ambulatory SHAD SHAMMO Facility:[facility]1 Start: 11-08-2021 End: 11-09-2021 ambulatory SHAD SHAMMO Facility:[facility]1 Start: 11-03-2021 Encounter for genera l adult medical examination without abnormal findings DR DOCTOR HORNER [facility] Start: 11-01-2021 End: 11-02-[address] DOCTOR HORNER Facility:[facility]1 Start: 11-01-2021 End: 11-02-2021 Encounter for general adult medical examination without abnormal findings DR DOCTOR HORNER Facility:[facility]1 Start: 09-23-2021 End: 09-23-[address] CASSY DODSON . Facility:[facility] Start: 07-28-2021 End: 07-28-2021 ambulatory IRAM ROTH Facility:[facility]1 Procedures Date Procedure Procedure Detail Performing Clinician Start: 06-02-2024 End: 06-02-2024 SKIN / NAIL BIOPSY Chau Williamson MD Work Phone: Start: 12-31-2023 Colonoscopy Fabiola Cullen [employer] Start: 09-12-2022 Esophagogastroduodenoscopy Start: 07-05-2022 Adult depression screening assessment [facility] 1 Start: 07-19-2020 Mammography Chau Williamson MD Work Phone: Plan of Treatment Date Care Activity Detail Author Start: 12-30-2033 Screening for malignant neoplasm of colon [facility] Start: 12-30-2028 Screening for malignant neoplasm of colon Colonoscopy [facility] Start: 09-28-2028 DTaP,Tdap and Td Vaccines (2 - Td or Tdap) DTaP,Tdap and Td Vaccines (2 - Td or Tdap) [facility] Start: 12-30-2024 Adult BMI Screening Adult BMI Screening [facility] Start: 12-30-2024 Tobacco Screening Tobacco Screening [facility] Start: 12-24-2024 Adult BMI Screening Adult BMI Screening [facility] Start: 12-24-2024 Tobacco Screening Tobacco Screening [facility] Start: 12-04-2024 Adult BMI Screening Adult BMI Screening [facility] Start: 12-04-2024 Tobacco Screening Tobacco Screening [facility] Start: 10-06-2024 Influenza vaccination [facility] Start: 07-08-2024 End: 07-08-2024 Patient encounter procedure 07/08/2024 9:00 AM EDT Office Visit [facility] [place] [address] Freedom Hsu PA-C [address] [facility] [place] [address] [facility] Start: 07-03-2024 End: 07-03-2024 Patient encounter procedure [facility] Start: 06-02-2024 End: 06-02-2024 Patient encounter procedure 06/02/2024 10:20 AM EDT Office Visit [facility] [address] [place] [phone] Chau Williamson MD [address] [place] [address] Arrived [facility] Comment on above: Arrived Start: 05-31-2024 Adult BMI Screening Adult BMI Screening [facility] Start: 04-24-2024 Adult BMI Screening Adult BMI Screening [facility] Start: 04-24-2024 Tobacco Screening Tobacco Screening [facility] Start: 03-19-2024 Tobacco Screening Tobacco Screening [facility] Start: 03-16-2024 Adult BMI Screening Adult BMI Screening [facility] Start: 01-02-2024 Tobacco Screening Tobacco Screening [facility] Start: 12-31-2023 End: 12-31-2023 Admission to same day surgery center [facility] Comment on above: COLONOSCOPY DIAGNOSTIC / SCREENING [4537 8 (CPT )] Start: 12-31-2023 End: 12-31-2023 Anesthesia consultation 12/31/2023 12:00 PM EST Anesthesia Event [facility] [address] [place] [address] Derick Snyder, DO [address] [place] [address] [facility] Start: 12-31-2023 End: 12-31-2023 Colonoscopy flx dx w/collj spec when pfd [facility] Start: 12-31-2023 Subsequent hospital visit by physician [facility] Start: 12-17-2023 End: 12-17-2023 ambulatory 12/17/2023 3:40 PM EST Support Visit [facility] - Pre Admit [address] [place] [phone] [facility] Start: 10-07-2023 Influenza vaccination Influenza Vaccine [facility] Start: 07-06-2023 Depression Screening Depression Screening [facility] Start: 06-01-2023 End: 06-01-2023 Patient encounter procedure 06/01/2023 10:30 AM EDT Office Visit [facility] [address] [place] [phone] Irwin Rodriguez MD [address] [place] [address] [facility] Start: 04-27-2023 End: 04-27-2023 Patient encounter procedure 04/27/2023 3:15 PM EDT Office Visit [facility] [address] [place] [phone] Irwin Rodriguez MD [address] [place] [address] [facility] Start: 03-19-2023 End: 03-19-2023 Patient encounter procedure 03/19/2023 3:45 PM EST Office Visit [facility] [address] [place] [address] [address] [facility] [place] [address] Db Rivera MD [facility] [place] [address] [facility] Start: 03-19-2023 End: 03-19-2023 Admission to same day surgery center 03/19/2023 9:30 AM EST - 03/19/2023 10:00 AM EST Surgery [facility] - Surgery [address] [place] [phone] Db Rivera MD [address] [place] [address] CYSTOSCOPY WITH BLADDER IRRIGATION AND [facility] BLADDER SOLUTION [07920 (CPT )] [facility] Comment on above: CYSTOSCOPY WITH BLADDER IRRIGATION AND [facility] BLADDER SOLUTION [90436 (CPT )] Start: 03-19-2023 End: 03-19-2023 Cystourethroscopy [facility] Start: 03-19-2023 Subsequent hospital visit by physician 03/19/2023 9:30 AM EST Hospital Encounter [facility] [address] [place] [phone] Db Rivera MD [address] [place] [id number] [facility] Start: 10-06-2022 Influenza vaccination Influenza Vaccine [facility] Start: 09-12-2022 [facility] Start: 12-20-2021 MR Unspecified body region [facility] Start: 12-20-2021 MRI of head MR head/brain wo/w con [facility] Start: 07-19-2021 Screening for malignant neoplasm of breast Mammogram [facility] Start: 2008 Screening for malignant neoplasm of cervix [facility] Start: 09-05-1999 Screening for malignant neoplasm of cervix Pap Smear [facility] Start: 1996 Adult BMI Follow Up Plan Adult BMI Follow Up Plan [facility] Start: 1978 Screening for malignant neoplasm [facility] Start: 1978 Tobacco Counseling Tobacco Counseling [facility] End: 12-04-2024 Colonoscopy Colonoscopy GI Routine Encounter for screening colonoscopy 1 Occurrences starting 12/05/2023 until 12/04/2024 [employer] Work Phone: Comment on above: 1 Occurrences starting 12/05/2023 until 12/04/2024 Dermatopathology exam Dermatopat hology exam Pathology and Cytology Timed Neoplasm of unspecified behavior of bone, soft tissue, and skin Release Upon Ordering for 1 Occurrences starting 06/02/2024 [facility] Work Phone: Comment on above: Release Upon Ordering for 1 Occurrences starting 06/02/2024 Patient Education Hiatal Hernia (DC) [facility] Work Phone: Immunizations Immunization Date Immunization Notes Care Provider Fa mirtaty 09-28-2018 tetanus toxoid, redu moon diphtheria toxoid, and acellular pertussis vaccine, adsorbed [facility] Payers Date Payer Category Payer Medicaid [id number] 2022 Medicaid [id number] 2021 Self-pay [id number] 1978 Unknown [id number] 2.16.84 0.1.190012.3.579.2.593 1978 Unknown [id number] 2.16.84 0.1.630459.3.579.2.593 1978 Unknown [id number] 2.16.84 0.1.014246.3.579.2.593 1978 Unknown [id number] .16.84 0.1.601992.3.579.2.593 1978 Unknown [id number] 2.16.84 0.1.445608.3.579.2.593 1978 Unknown [id number] 2.16.84 0.1.720233.3.579.2.593 1978 Unknown [id number] 2.16.84 0.1.737802.3.579.2.593 1978 Unknown [id number] 2.16.84 0.1.101502.3.579.2.593 1978 Unknown [id number] 2.16.84 0.1.599961.3.579.2.593 1978 Unknown [id number] 2.16.84 0.1.899584.3.579.2.593 1978 Unknown [id number] 2.16.84 0.1.752448.3.579.2.593 1978 Unknown [id number] 2.16.84 0.1.056165.3.579.2.593 1978 Unknown [id number] 2.16.84 0.1.572662.3.579.2.593 1978 Unknown [id number] 2.16.8 40.1.326403.3.579.2.1286 1978 Unknown [id number] 2.16.8 40.1.341048.3.579.2.1286 1978 Unknown [id number] 2.16.84 0.1.397487.3.579.2.1259 1978 Unknown [id number] 2.16. 840.1.454907.3.579.2.1286 1978 Unknown [id number] 2.16. 840.1.602064.3.579.2.1286 1978 Unknown [id number] 2.16.8 40.1.384430.3.579.2.1286 1978 Unknown [id number] 2.16.8 40.1.839950.3.579.2.1286 1959 Medicaid [id number] Unknown [id number] 2.16.8 40.1.456592.3.579.2.531 Unknown [id number] 2.16.8 40.1.921967.3.579.2.531 Social History Date Type Detail Facility Tobacco smoking stat [facility] Unknown if ever smoked [facility] Work Phone: Start: 1980 Sex Assigned At Female F [facility] Start: 09-12-2022 Tobacco smoking stat [facility] Smoker (finding) [facility] Start: 03-18-2020 End: 07-05-[address] [facility] Start: 03-19-2023 End: 12-05-2023 Tobacco smoking status NHIS Smokes tobacco daily [facility] History of tobacco use Cigarette Smoker P [facility] Start: 03-18-2020 End: 03-19-2023 Cigarettes smoked current (pack per day) - Reported 0.3 [facility] Start: 03-19-2023 End: 12-05-2023 Tobacco use and exposure Smokeless tobacco non-user [facility] Start: 04-25-2023 End: 01-01-2024 Alcoholic beverage intake Current non-drinker of alcohol (finding) [facility] How often to you hav e a drink containing alcohol? Never [facility] How many standard drinks containing alcohol do you have on a typical day? Patient does not drink [facility] Start: 06-21-2022 Tobacco Comment Has a patch an d down to [address] [facility] Start: 1980 Sex assigned at Not on file P [facility] [facility] Start: 09-10-2014 Sex Female (finding) [facility] Tobacco smoking stat us NHIS Tobacco smoking consumption unknown [facility] Start: 05-21-2024 Gender identity Identifies as female gender (finding) [facility] Medical Equipment Procedure Code Equipment Code Equipment Origin al Text Equipment Identifier Dates Graft Bn 5ml Yomi Puros Strl Lf - [id number] Start: 07-05-2022 [place] Yasargil Titanium Aneurysm Clip [id number] Start: 07-05-2022 Cover Bur Hl 14m m Lp Tab Unv Neuro 2 Thk.5mm Ns Lf - [id number] Start: 07-05-2022 Cover Bur Hl Crn fcl 10mmx.5mm Lp Tab Strl Lf Disp - [id number] Start: 07-05-2022 Plate Bn 16mm 2 Hl Lp Unv Neuro Ii Crnmxf Ti Ns Lf 1.5mm Scr - [id number] Start: 07-05-2022 Screw Bn 4mm 1.5 mm Slf Drl Xpn Crnmxf Strl - [id number] Start: 07-05-2022 Goals Date Patient Goal Desired Activity /State Clinical Notes 12-20-2021 to 06-16-2024 Telephone Encounter - Christy Warner - 06/16/2024 9:10 AM EDTTelephone Encounter - Olga Boyd - 06/16/2024 9:10 AM EDTTelephone Encounter - Lisa Gamez RN - 06/16/2024 9:10 AM EDT Note Date & Type Note Facility 06-16-2024 Miscellaneous Notes Received new patient referral. Please call patient to schedule a new patient appointment for Frequent headaches IS THIS DUE TO AN ACCIDENT? IS THIS WORKER'S COMP? PLEASE VERIFY IF THIS IS WORKERS COMP AND DOCUMENT (We do not accept any new workers comp cases) WHAT INSURANCE? HAVE YOU EVER BEEN SEEN BY A NEUROLOGIST BEFORE? Strip Cutter spoke to patient regarding new patient appointment for headaches. Patient stated during the conversation previously seen for aneurysm and had brain surgery two years ago. Please advise can patient be seen by Dr Henson in [place] for headaches or if she should be seen by Dr Bautista. Patient prefers [place] location . Patient can be reached at [phone]. Thanks so much Patient had aneurysm clipped in 2022 by [facility]. Okay to schedule for headaches. Strip Cutter spoke to patient regarding scheduling with Dr Henson in [place]. Patient was driving will call back into the office to schedule. documented in this encounter [facility] [place] 06-16-2024 Telephone encounter Note Received new patient referral. Please call patient to schedule a new patient appointment for Frequent headaches IS THIS DUE TO AN ACCIDENT? IS THIS WORKER'S COMP? PLEASE VERIFY IF THIS IS WORKERS COMP AND DOCUMENT (We do not accept any new workers comp cases) WHAT INSURANCE? HAVE YOU EVER BEEN SEEN BY A NEUROLOGIST BEFORE? [facility] 06-16-2024 Telephone encounter Note Strip Cutter spoke to patient regarding new patient appointment for headaches. Patient stated during the conversation previously seen for aneurysm and had brain surgery two years ago. Please advise can patient be seen by Dr Henson in [place] for headaches or if she should be seen by Dr Bautista. Patient prefers [place] location . Patient can be reached at [phone]. Thanks so much [facility] 06-16-2024 Telephone encounter Note Patient had aneurysm clipped in 2022 by [facility]. [place] to schedule for headaches. [facility] 06-16-2024 Telephone encounter Note Strip Cutter spoke to patient regarding scheduling with Dr Henson in [place]. Patient was driving will call back into the office to schedule. [facility] 06-02-2024 History of Present illness Narrative Images from the original note were not included. Lesions: Location: left parietal scalp, occipital scalp Duration: 4 years Quality: painful Associated symptoms: scaly- gets scab at times Treatments: none Location # 2: face Duration: years Quality: denies pain, denies itch Treatments: none New patient, referred by Marisol Canales MD All pertinent medical history, medications, and allergies were reviewed. General Exam: alert, oriented to person, place, and time, normal affect, well appearing Unaccompanied A focused exam completed based on patient reported problems, see below: Skin Exam 1. MELANOCYTIC NEVUS OF FACE, OTHER LOCATION Head - Anterior (Face) Scattered benign appearing, regular brown to light brown melanocytic papules and macules with similar morphology Counseled regarding these benign growths. Rarely, a nevus can develop into malignant melanoma, so any changing nevi should be promptly re-evaluated. 2. NEOPLASM OF UNSPECIFIED BEHAVIOR OF BONE, SOFT TISSUE, AND SKIN (3) Vertex of Scalp [place] pearly papule Lesion biopsy Type of biopsy: tangential Informed consent: discussed and consent obtained Informed consent comment: The risks and benefits of the biopsy were discussed. Risks include but are not limited to bleeding, infection, scarring, pain, and nerve damage. An opportunity to ask questions prior to the procedure was permitted and all questions were answered. Patient was prepped and draped in usual sterile fashion: area cleansed with alcohol. Anesthesia: the lesion was anesthetized in a standard fashion Anesthetic: 1% lidocaine w/ epinephrine 1-100,000 buffered w/ 8.4% NaHCO3 Instrument used: DermaBlade Hemostasis achieved with: electrodesiccation Outcome: patient tolerated procedure well Outcome comment: The specimen was placed in a prelabeled formalin container to be sent for pathology Post-procedure details: sterile dressing applied and wound care instructions given Post-procedure details comment: Emphasized need to contact clinic for any signs of infection, uncontrollable bleeding, or complications. Dressing type: bandage Additional details: Photo taken Amount of lidocaine used: 1.0 cc Specimen A - Dermatopathology exam Differential Diagnosis: prurigo vs BCC vs scar Check Margins: No Size of lesion: 1.0 x 0.7 cm Left Occipital Scalp Flesh colored papule Lesion biopsy Type of biopsy: tangential Informed consent: discussed and consent obtained Informed consent comment: The risks and benefits of the biopsy were discussed. Risks include but are not limited to bleeding, infection, scarring, pain, and nerve damage. An opportunity to ask questions prior to the procedure was permitted and all questions were answered. Patient was prepped and draped in usual sterile fashion: area cleansed with alcohol. Anesthesia: the lesion was anesthetized in a standard fashion Anesthetic: 1% lidocaine w/ epinephrine 1-100,000 buffered w/ 8.4% NaHCO3 Instrument used: DermaBlade Hemostasis achieved with: electrodesiccation Outcome: patient tolerated procedure well Outcome comment: The specimen was placed in a prelabeled formalin container to be sent for pathology Post-procedure details: sterile dressing applied and wound care instructions given Post-procedure details comment: Emphasized need to contact clinic for any signs of infection, uncontrollable bleeding, or complications. Dressing type: bandage Additional details: Photo taken Amount of lidocaine used: 1.0 cc Specimen B - Dermatopathology exam Differential Diagnosis: SCC vs inflamed nevus Check Margins: No Size of lesion: 0.7 x 0.7 cm Mid Occipital Scalp Flesh colored papule Lesion biopsy Type of biopsy: tangential Informed consent: discussed and consent obtained Informed consent comment: The risks and benefits of the biopsy were discussed. Risks include but are not limited to bleeding, infection, scarring, pain, and nerve damage. An opportunity to ask questions prior to the procedure was permitted and all questions were answered. Patient was prepped and draped in usual sterile fashion: area cleansed with alcohol. Anesthesia: the lesion was anesthetized in a standard fashion Anesthetic: 1% lidocaine w/ epinephrine 1-100,000 buffered w/ 8.4% NaHCO3 Instrument used: DermaBlade Hemostasis achieved with: electrodesiccation Outcome: patient tolerated procedure well Outcome comment: The specimen was placed in a prelabeled formalin container to be sent for pathology Post-procedure details: sterile dressing applied and wound care instructions given Post-procedure details comment: Emphasized need to contact clinic for any signs of infection, uncontrollable bleeding, or complications. Dressing type: bandage Additional details: Photo taken Amount of lidocaine used: 1.0 cc Specimen C - Dermatopathology exam Differential Diagnosis: inflamed nevus Check Margins: No Size of lesion: 0.9 x 0.7 cm Next Visit: pending biopsy results documented in this encounter [facility] 01-21-2024 Note [place] [facility] Subjective Araceli Pérez is a 43 y.o. year old female [...] directed., Disp: 90 tablet, Rfl: 3 omega 4-ecg-izv-fish oil 300-1,000 mg capsule,delayed release(DR/EC), , Disp: [...] function stable Chol (more content not included)... [facility] 01-11-2024 Miscellaneous Notes ----- Message from Dr. Db Elizabeth DO sent at 01/10/2024 7:23 AM EST ----- Please let patient know that she had a colon polyp which was precancerous and I recommend surveillance colonoscopy in 5 years unless problems. Thanks, Dr. Hough I gave the patient the results message from Dr Elizabeth. She stated complete understanding. documented in this encounter [facility] 01-11-2024 Telephone encounter Note ----- Message from Dr. Db Elizabeth DO sent at 01/10/2024 7:23 AM EST ----- Please let patient know that she had a colon polyp which was precancerous and I recommend surveillance colonoscopy in 5 years unless problems. Thanks, Dr. Hough [facility] 01-11-2024 Telephone encounter Note I gave the patient the results message from Dr Elizabeth. She stated complete understanding. [facility] 12-25-2023 Miscellaneous Notes Preoperative Education Checklist- General Surgery date: 12/31/23 Surgery time: 1200 Arrival time: 1000 1. Bring a photo ID and your insurance card with you the day of surgery. You will check in at the main lobby of the [facility]- registration desk is straight ahead as soon as you walk in. Tell them you are here for surgery. 2. If you have a Living Will/Durable Power of Bead Machine Operator for Health Care that is not on [...] after you have bathed. 5. NO nail moldovan/acrylic on at least one finger. If you are having a hand, wrist or foot surgery then all nail moldovan and artificial/acrylic nails must be removed from [...] please call the Preadmission Testing office at [phone], Mon.-Fri. 7 a.m.-3 p.m. Leave a voicemail if needed. Pre-Surgery Instructions: Medication Instructions amitriptyline (ELAVIL) 50 mg tablet Stop taking 0 days prior to procedure amLODIPine (NORVASC) 5 mg tablet Stop taking 0 days prior to procedure atorvastatin (LIPITOR) 20 mg tablet Stop taking 0 days prior to procedure bisacodyL (DULCOLAX, BISACODYL,) 5 mg EC tablet Stop taking 0 days prior to procedure FLUoxetine (PROzac) 20 mg capsule Stop taking 0 days prior to procedure losartan (COZAAR) 50 mg tablet Stop taking 0 days prior to procedure omega 4-cif-kne-fish oil (FISH OIL) 300-1,000 mg capsule,delayed release(DR/EC) Stop taking 1 week prior to procedure omeprazole (PriLOSEC) 40 mg capsule Stop taking 0 days prior to procedure sod sulf-pot chloride-mag sulf 1.479-0.188- 0.225 gram tablet Stop taking 0 days prior to procedure solifenacin (VESICARE) 5 mg tablet Stop taking 0 days prior to procedure tiZANidine (ZANAFLEX) 2 mg tablet Stop taking 0 days prior to procedure documented in this encounter [facility] 12-25-2023 Nurse Note Preoperative Education Checklist- General Surgery date: 12/31/23 Surgery time: 1200 Arrival time: 1000 1. Bring a photo ID and your insurance card with you the day of surgery. You will check in at the main lobby of the [facility]- registration desk is straight ahead as soon as you walk in. Tell them you are here for surgery. 2. If you have a Living Will/Durable Power of Bead Machine Operator for Health Care that is not on [...] after you have bathed. 5. NO nail moldovan/acrylic on at least one finger. If you are having a hand, wrist or foot surgery then all nail moldovan and artificial/acrylic nails must be removed from [...] please call the Preadmission Testing office at [phone], Mon.-Fri. 7 a.m.-3 p.m. Leave a voicemail if needed. Pre-Surgery Instructions: Medication Instructions amitriptyline (ELAVIL) 50 mg tablet Stop taking 0 days prior to procedure amLODIPine (NORVASC) 5 mg tablet Stop taking 0 days prior to procedure atorvastatin (LIPITOR) 20 mg tablet Stop taking 0 days prior to procedure bisacodyL (DULCOLAX, BISACODYL,) 5 mg EC tablet Stop taking 0 days prior to procedure FLUoxetine (PROzac) 20 mg capsule Stop taking 0 days prior to procedure losartan (COZAAR) 50 mg tablet Stop taking 0 days prior to procedure omega 2-mpb-dkk-fish oil (FISH OIL) 300-1,000 mg capsule,delayed release(DR/EC) Stop taking 1 week prior to procedure omeprazole (PriLOSEC) 40 mg capsule Stop taking 0 days prior to procedure sod sulf-pot chloride-mag sulf 1.479-0.188- 0.225 gram tablet Stop taking 0 days prior to procedure solifenacin (VESICARE) 5 mg tablet Stop taking 0 days prior to procedure tiZANidine (ZANAFLEX) 2 mg tablet Stop taking 0 days prior to procedure [facility] 12-05-2023 History of Present illness Narrative Chief Complaint: Colon cancer screening History of Present Illness Araceli Pérez is a 43 y.o. female who presents to the office for colon cancer screening. This is her first colonoscopy. She denies diarrhea, constipation, abdominal pain, melena, hematochezia, unexplained weight loss. There is no family history of colon cancer. Review of Systems Constitutional: Negative for fever and unexpected weight change. HENT: Negative for trouble swallowing. Respiratory: Negative for shortness of breath. Cardiovascular: Negative for chest pain. Gastrointestinal: Negative for nausea, vomiting, abdominal pain, diarrhea, constipation, blood in stool and black tarry stool. Genitourinary: Negative for dysuria and difficulty urinating. Musculoskeletal: Negative for gait problem. Skin: Negative for rash and wound. Neurological: Negative for dizziness, weakness and light-headedness. Hematological: Does not bruise/bleed easily. Psychiatric/Behavioral: Negative for confusion. Past Medical History: Diagnosis Date Abdominal pain Acid reflux Arthritis Asthma Bleeding disorder ([facility]) Factor V(clotting disorder) per patient Cerebral aneurysm Clotting disorder ([facility]) Dental disease Upper dentures, lower partial Depression Dysphagia Endometriosis Factor 5 Leiden mutation, heterozygous ([facility]) Fibromyalgia, primary GERD (gastroesophageal reflux disease) Without esophagitis Hyperlipidemia Hypertension Injury of back Irregular menstruation Leaking of urine Memory loss Menopause Migraine headache Obesity Painful menstruation Pelvic pain Pneumonia Rheumatoid arthritis ([facility]) Seizures ([facility]) 1998 During Septoplasty surgery per chart from [facility]. Sinusitis, chronic Wears partial dentures Past Surgical History: Procedure Laterality Date ADENOIDECTOMY BLADDER SUSPENSION CRANIOTOMY REPAIR ANEURYSM(MCA ANEURYSM CLIPPING) Right 07/05/2022 Performed by Eric Jimenez MD at [facility] CYSTOSCOPY WITH BLADDER IRRIGATION AND [facility] BLADDER SOLUTION N/A 03/19/2023 Performed by Db Rivera MD at [facility] Diagnostic cerebral angiogram N/A 07/06/2022 Performed by Yi Bautista MD at [facility] Diagnostic cerebral angiogram N/A 01/02/2022 Performed by Yi Bautista MD at [facility] EGD with bx N/A 07/26/2016 Performed by Db Acevedo MD at [facility] ENDOSCOPY ESSURE TUBAL LIGATION FOOT SURGERY Right HYSTERECTOMY 2010 LAPAROSCOPIC CHOLECYSTECTOMY N/A 04/09/2019 Performed by Geovany Bain MD at [facility] NASAL SEPTOPLASTY W/ TURBINOPLASTY OOPHORECTOMY TONSILLECTOMY TOOTH EXTRACTION Allergies Allergen Reactions Naproxen Hives Penicillins Shortness Of Breath and Rash Cymbalta [Duloxetine] Vomiting Nickel Current Outpatient Medications: amLODIPine (NORVASC) 5 mg tablet, Take 2 tablets (10 mg total) by mouth nightly Indications: high blood pressure., Disp: , Rfl: atorvastatin (LIPITOR) 20 mg tablet, Take 2 tablets (40 mg total) by mouth in the morning., Disp: , Rfl: losartan (COZAAR) 50 mg tablet, Take 2 tablets (100 mg total) by mouth nightly., Disp: , Rfl: omega 9-out-yyf-fish oil (FISH OIL) 300-1,000 mg capsule,delayed release(DR/EC), Take 1 capsule by mouth in the morning., Disp: , Rfl: omeprazole (PriLOSEC) 40 mg capsule, Take 1 capsule (40 mg total) by mouth every morning before breakfast., Disp: , Rfl: amitriptyline (ELAVIL) 50 mg tablet, One capsule at 8 PM each night (Patient not taking: Reported on 12/05/2023), Disp: 90 tablet, Rfl: 1 bisacodyL (DULCOLAX, BISACODYL,) 5 mg EC tablet, Please see instructional sheet given by physicians office., Disp: 2 tablet, Rfl: 0 FLUoxetine (PROzac) 20 mg capsule, Take 1 capsule (20 mg total) by mouth in the morning. (Patient not taking: Reported on 12/05/2023), Disp: 90 capsule, Rfl: 1 sod sulf-pot chloride-mag sulf 1.479-0.188- 0.225 gram tablet, Please see instructional sheet given by physicians office., Disp: 24 tablet, Rfl: 0 solifenacin (VESICARE) 5 mg tablet, Take 1 tablet (5 mg total) by mouth in the morning. (Patient not taking: Reported on 12/05/2023), Disp: 30 tablet, Rfl: 4 tiZANidine (ZANAFLEX) 2 mg tablet, One tab at 8:00 p.m.each night (Patient not taking: Reported on 12/05/2023), Disp: 90 tablet, Rfl: 1 Social History Socioeconomic History Marital status: Spouse name: Not on file Number of children: Not on file Years of education: Not on file Highest education level: Not on file Occupational History Not on file Tobacco Use Smoking status: Every Day Current packs/day: 0.25 Average packs/day: 0.3 packs/day for 45.0 years (15.0 ttl pk-yrs) Types: Cigarettes Smokeless tobacco: Never Tobacco comments: Has a patch and down to 4 cig. Per day Vaping Use Vaping status: Never Used Substance and Sexual Activity Alcohol use: No Drug use: Not Currently Types: Marijuana Comment: younger years Sexual activity: Defer Partners: Male Other Topics Concern Not on file Social History Narrative Not on file Social Drivers of Health Financial Resource Strain: Not on file Food Insecurity: No Food Insecurity (04/25/2023) Hunger Screening Food Insecurity - Worry: Never True Food Insecurity - Inability: Never True Transportation Needs: Not on file Physical Activity: Not on file Stress: Not on file Social Connections: Not on file Interpersonal Safety: Not on file Housing Instability: Not on file Family History Problem Relation Age of Onset Hypothyroidism Mother Other Mother Swallowing problems/Heartburn Thyroid Issues Mother Swallowing difficulties Mother Anesthesia problems Father prolonged emergence Hypertension Father Diabetes Father Heart attack Father Blood Clots Father Heart disease Father Arthritis Father High Cholesterol Father Bleeding Disorder Father Alcohol abuse Brother Years ago Asthma Son Asthma Son Other Son Eosinophilic esophagitis (EoE) Hypertension Paternal Grandfather Stroke Paternal Grandfather Breast cancer Neg Hx Objective Physical Exam Constitutional: General: She is not in acute distress. Appearance: Normal appearance. She is not ill-appearing. HENT: Head: Normocephalic and atraumatic. Mouth/Throat: Mouth: Mucous membranes are moist. Eyes: Pupils: Pupils are equal, round, and reactive to light. Cardiovascular: Rate and Rhythm: Normal rate. Pulmonary: Effort: Pulmonary effort is normal. No respiratory distress. Abdominal: General: There is no distension. Musculoskeletal: General: Normal range of motion. Skin: General: Skin is warm and dry. Neurological: Mental Status: She is alert and oriented to person, place, and time. Mental status is at baseline. Vital Signs: Blood pressure 125/77, pulse 83, weight 113.4 kg (250 lb), not currently . Respiratory Source: No data recorded Admission Weight: Weight: 113.4 kg (250 lb) Labs Lab Results Component Value Date WBC 9.1 03/12/2023 HGB 14.4 03/12/2023 HCT 42.2 03/12/2023 MCV 88 03/12/2023 PLT 296 03/12/2023 Lab Results Component Value Date GLU 92 03/12/2023 CALCIUM 8.7 03/12/2023 K 3.9 03/12/2023 CO2 30 03/12/2023 CL 107 03/12/2023 BUN 9 03/12/2023 CREATININE 0.73 03/12/2023 No results found for: AMYLASE Lab Results Component Value Date LIPASE 36 12/09/2021 Lab Results Component Value Date ALT 12 03/12/2023 AST 13 03/12/2023 ALKPHOS 103 03/12/2023 Lab Results Component Value Date INR 1.1 01/01/2023 INR 1.0 06/21/2022 INR 1.0 03/31/2022 PROTIME 12.6 01/01/2023 PROTIME 11.1 06/21/2022 PROTIME 11.1 03/31/2022 Assessment Araceli Pérez is a 43 y.o.female who presents to the office for screening colonoscopy. Plan Colonoscopy with possible biopsy and/or polypectomy. Risks, benefits, and alternatives discussed with patient. Educated on bowel evacuation preparation. Patient verbalizes understanding and wishes to proceed. Evaluation included: Preparing to see the patient (e.g., review of tests) Obtaining and/or reviewing separately obtained history Performing a medically appropriate examination and/or evaluation Counseling and educating the patient/family/caregiver Referring and communicating with other health daycare assistant Encounter for screening colonoscopy [Z12.11] SHANNA SINGH [facility] General Surgery [place] This note was created with the assistance of a speech recognition program. While intending to generate a timely document that accurately reflects the content of the visit, no guarantee can be provided that every grammatical or spelling mistake has been or will be identified or corrected. Thank you for your understanding. SHANNA Singh 12/05/23 1000 documented in this encounter [facility] 11-20-2023 Miscellaneous Notes Patient called to cancel her colonoscopy appointment for today with Yu Guerrier NP, as she her child ran away in the middle of the night and she is at the [facility] filling out paperwork. She will call us back later to reschedule her appointment. documented in this encounter [facility] 11-20-2023 Telephone encounter Note Patient called to cancel her colonoscopy appointment for today with Yu Guerrier NP, as she her child ran away in the middle of the night and she is at the [facility] filling out paperwork. She will call us back later to reschedule her appointment. [facility] 10-22-2023 Note Today states that sh e is out of elavil and does not have appt with PCP until Nov 09- therefore will prescribed short 3 week script to fill [facility] 10-22-2023 Note [facility] Note Lipid abnormalities are stable, continue lipitor 40 mg daily [facility] 10-22-2023 Note Hypertension is stab le and well controlled Continue hydrochlorothiazide, losartan, norvasc [facility] 10-22-2023 Note Currently resolved [facility] 10-22-2023 Note Pt is here for a eig ht month follow up. [facility] 10-22-2023 Note Patient here for 1.5 year follow up hypertension. Still has pain under her right breast, where the bone is . Denies SOB and palpitations. Says she hasn't been lightheaded/dizzy since her aneurysm surgery in June 2022. Review of Systems Musculoskeletal: Positive for arthritis, back pain and joint pain. Neurological: Positive for headaches. All other systems reviewed and are negative. [facility] 10-22-2023 Note [facility] PRO[facility] ESS NOTE HPI: Araceli Pérez is a 43 y.o. female here for [...] are negative Previous HPI 05/25/23 HPI: Araceli Pérez is a 41 y.o. female here for routine f/U for HTN, atypical chest pain Currently denied chest pain, shortness of breath, orthopnea. Admits occasional lightheadedness/dizziness, but denied syncope. States that Neuro-surg at [facility] is planning surgery for aneurysm. Previous HPI [...] 40 mg by mouth at bedtime. omega 0-kmh-kui-fish oil 300-1,000 mg capsule,delayed release(DR/EC) omeprazole (PriLOSEC) [...] [phone] (more content not included)... [facility] 06-01-2023 History of Present illness Narrative Patient is here for follow up with Dr. Rordiguez. Orders received to follow up prn. Copy of recent labs provided and pcp info for Dr. Banuelos. documented in this encounter [facility] 06-01-2023 History of Present illness Narrative [facility] 06/01/23 Araceli Pérez is a 42 y.o. year old female seen today in the oncology clinic. Chief Complaint Patient presents with Follow-up History of Present Illness: Mrs. Pérez is a 42 y.o. female who was tested positive for heterozygous factor 5 Leiden mutation about 10 years ago. The patient has multiple family members had thrombosis (father, aunt and grandmother). The patient never have any confirmed thrombosis. Over the past 10 years, she underwent multiple invasive procedures without thrombotic complication. She has been followed by Dr. Boyd ([facility]), due to relocation she came to my clinic to establish care. The patient is allergic to nickel. She has been seen by Dr. Bautista with stroke neurology, who was planning for an aneurysm embolization although his devices contained nickel thus she was referred to Dr. Jimenez. Patient has a severe nickel allergy per her report. She states after having a nickel IUD, she had a severe reaction requiring 20 surgeries afterward. She reports mom's maternal cousin and her maternal cousin's mom of an aneurysm rupture. She denies being told she has a connective tissue disease and states she was sent for a genetic test although the test was lost. She reports she is currently on patches for smoking cessation. She had aneurysm surgery by Dr. Jimenez. Interval history: The patient is doing well over the past few months, denies any new medical conditions. No personal history of thrombosis. She has currently not taking any blood thinner. Recovered well from recent aneurysm surgery. Denies any lower extremity edema or swelling. Past Medical History: Diagnosis Date Abdominal pain Acid reflux Arthritis Asthma Bleeding disorder ([facility]) Factor V(clotting disorder) per patient Cerebral aneurysm Clotting disorder ([facility]) Dental disease Upper dentures, lower partial Depression Dysphagia Endometriosis Factor 5 Leiden mutation, heterozygous ([facility]) Fibromyalgia, primary GERD (gastroesophageal reflux disease) Without esophagitis Hyperlipidemia Hypertension Injury of back Irregular menstruation Leaking of urine Memory loss Menopause Migraine headache Obesity Painful menstruation Pelvic pain Pneumonia Rheumatoid arthritis ([facility]) Seizures ([facility]) 1998 During Septoplasty surgery per chart from [facility]. Sinusitis, chronic Wears partial dentures Past Surgical History: Procedure Laterality Date ADENOIDECTOMY BLADDER SUSPENSION CRANIOTOMY REPAIR ANEURYSM(MCA ANEURYSM CLIPPING) Right 07/05/2022 Performed by Eric Jimenez MD at [facility] CYSTOSCOPY WITH BLADDER IRRIGATION AND [facility] BLADDER SOLUTION N/A 03/19/2023 Performed by Db Rivera MD at [facility] Diagnostic cerebral angiogram N/A 07/06/2022 Performed by Yi Bautista MD at [facility] Diagnostic cerebral angiogram N/A 01/02/2022 Performed by Yi Bautista MD at [facility] EGD with bx N/A 07/26/2016 Performed by Db Acevedo MD at [facility] ENDOSCOPY ESSURE TUBAL LIGATION FOOT SURGERY Right HYSTERECTOMY 2010 LAPAROSCOPIC CHOLECYSTECTOMY N/A 04/09/2019 Performed by Geovany Bain MD at [facility] NASAL SEPTOPLASTY W/ TURBINOPLASTY OOPHORECTOMY TONSILLECTOMY TOOTH [...] Stroke Paternal Grandfather Breast cancer Neg Hx Social History Socioeconomic History Marital status: Tobacco Use Smoking status: Every Day Current packs/day: 0.25 Average packs/day: 0.3 packs/day for 30.0 years (7.5 ttl pk-yrs) Types: Cigarettes Smokeless tobacco: Never Tobacco comments: Has a patch and down to 4 cig. Per day Vaping Use Vaping status: Never Used Substance and Sexual Activity Alcohol use: No Alcohol/week: 0.0 standard drinks of alcohol Drug use: Not Currently Types: Marijuana Comment: younger years Sexual activity: Defer Partners: Male Social Determinants of Health Food Insecurity: No Food Insecurity (04/25/2023) Hunger Screening Food Insecurity - Worry: Never True Food Insecurity - Inability: Never True Allergies Allergen Reactions Naproxen Hives Penicillins Shortness Of Breath and Rash Cymbalta [Duloxetine] Vomiting Nickel Medication List Accurate as of June 01, 2023 12:47 PM. If you have any questions, ask your nurse or doctor. Medications Modified This Visit amitriptyline 50 mg tablet Quantity: 90 tablet Refills: 1 For diagnoses: Fibromyalgia Signed by: Dr. Hester One capsule at 8 PM each night Commonly known as: ELAVIL What changed: how much to take how to take this when to take this Medications Continued This Visit acetaminophen 500 mg tablet Quantity: 30 tablet Refills: 0 Dose: 500 mg Signed by: LYLE Seals PA-C 500 mg, oral, Every 6 hours PRN Commonly known as: TYLENOL EXTRA STRENGTH amLODIPine 5 mg tablet Refills: 0 Dose: 10 mg Commonly known as: NORVASC atorvastatin 20 mg tablet Refills: 0 Dose: 20 mg Commonly known as: LIPITOR FLUoxetine 20 mg capsule Quantity: 90 capsule Refills: 1 For diagnoses: Fibromyalgia Dose: 20 mg Signed by: Dr. Hester 20 mg, oral, Daily Commonly known as: PROzalulu fluticasone propion-salmeteroL 100-50 mcg/dose DISKUS Refills: 0 Dose: 1 puff Commonly known as: ADVAIR losartan 50 mg tablet Refills: 0 Dose: 100 mg Commonly known as: COZAAR naloxone 4 mg/actuation spray,non-aerosol nasal spray Quantity: 1 each Refills: 0 Dose: 1 spray Signed by: LYN MaguireORAL PATHOLOGIST 4 mg, alternating nares, As needed Commonly known as: NARCAN omega 9-azy-vxf-fish oil 300-1,000 mg capsule,delayed release(DR/EC) Refills: 0 Dose: 1 capsule Commonly known as: FISH OIL omeprazole 40 mg capsule Refills: 0 Dose: 40 mg Commonly known as: PriLOSEC solifenacin 5 mg tablet Quantity: 30 tablet Refills: 4 Dose: 5 mg Signed by: Dr. Rivera 5 mg, oral, Daily Commonly known as: VESICARE tiZANidine 2 mg tablet Quantity: 90 tablet Refills: 1 For diagnoses: Fibromyalgia Signed by: Dr. Hester One tab at 8:00 p.m.each night Commonly known as: ZANAFLEX Review of Symptoms: Review of Systems ECO- Symptomatic; fully ambulatory Physical Exam: General: Well appearing, in no acute distress. Vitals: BP (!) 145/101 Pulse 78 Temp 36.8 C (98.3 F) (Oral) Resp 18 Ht 162.6 cm (5' 4.02 ) Wt 113.9 kg (251 lb) SpO2 100% BMI 43.06 kg/m Body mass index is 43.06 kg/m . Eyes: No icterus, no conjuctival erythema ENT: Pharyngeal mucosa was moist without exudate and inflammation or ulcerations. Tongue was midline and appeared normal.Gums were unremarkable. Lymph nodes: No palpable adenopathy Neck: Supple. There were no masses, tenderness. Trachea was midline. Respiratory: Respirations were non-labored. Lungs were clear to auscultation. There was no dullness to percussion. Cardiac: Regular rate and rhythm, S1 and S2 sounds were normal. There were no rubs or gallops. Abdomen: Soft, non-tender, Nondistended. Bowel sounds audible in all four quadrants. There were no palpable masses. The liver and spleen were not enlarged. Extremities: There was no clubbing, Cyanosis, edema. Skin: There was no obvious rashes, bruising or ecchymosis. Back exam: No palpable tenderness was appreciated. Neurologic: There was no unilateral weakness. Mood and affect: Normal. Recent Imaging: No results found. Recent Labs: No results found for this or any previous visit (from the past 336 hour(s)). Diagnosis Problem list: Problem List Items Addressed This Visit Hematopoietic and Hemostatic Factor 5 Leiden mutation, heterozygous ([facility]) - Primary Impression: Heterozygous Factor 5 Leiden mutation carrier, no personal history of thrombosis Family history of thrombosis Brain aneurysm Allergic reaction to nickel Plan: The lifetime risk of developing a DVT for patient with heterozygous factor 5 leiden mutation is 10% or less. The patient liver have any personal history of thrombosis. Her medication list is reviewed today, currently she is not taking any medication that will decrease her risk of thrombosis. Continue observation for now. Patient will continue to follow-up with PCP. Preoperative and postoperative anticoagulation is per standard surgical protocol. Follow-up with hematology as needed. Thank you. Irwin Rodriguez MD Please note that portions of this note were generated using voice recognition [employer] dictation software. Although every effort was made to ensure the accuracy of this automated cleaning and washing equipment operator, some errors in cleaning and washing equipment operator may have occurred. CC: Patient Care Team: SHANNA Avelar as PCP - General (Primary Care) Irwin Rodriguez MD as Consulting Physician (Hematology) Eren Hester MD as Referring Physician (Rheumatology) Александр Holland, PhD as Referring Physician (Clinical Neurophysiology) Yi Bautista MD as Referring Physician (Neurology) Eric Jimenez MD as Referring Physician (Neurosurgery) SHANNA Matt as Nurse Practitioner (Emergency Medicine) PCP:Shad Elliott Referring MD: Shad Elliott APRN-CNP documented in this encounter [facility] 04-25-2023 Evaluation + Plan note Associated Problem(s): Mixed stress and urge urinary incontinence No constipation no dry mouth. Will start her on 5 mg VESIcare. Refer her to Dr. Engle. Certainly made need some urodynamic study as well. Deferred to his evaluation and management. [facility] 04-25-2023 Miscellaneous Notes Associated Problem(s): Mixed stress and urge urinary incontinence No constipation no dry mouth. Will start her on 5 mg VESIcare. Refer her to Dr. Engle. Certainly made need some urodynamic study as well. Deferred to his evaluation and management. documented in this encounter [facility] 04-25-2023 History of Present illness Narrative Images from the original note were not included. [address] [place] [address] [facility] [id number] Patient: Araceli Pérez Date of : 1980 Encounter Date: 04/25/2023 [...] pain Acid reflux Arthritis Asthma Bleeding disorder ([facility]) Factor V(clotting disorder) per patient Cerebral aneurysm Clotting disorder ([facility]) Dental disease Upper dentures, lower partial Depression Dysphagia Endometriosis Factor 5 Leiden mutation, heterozygous ([facility]) Fibromyalgia, primary GERD (gastroesophageal reflux disease) Without esophagitis Hyperlipidemia Hypertension Injury of back Irregular menstruation Leaking of urine Memory loss Menopause Migraine headache Obesity Painful menstruation Pelvic pain Pneumonia Rheumatoid arthritis ([facility]) Seizures ([facility]) 1998 During Septoplasty surgery per chart from [facility]. Sinusitis, chronic Wears partial dentures Past Surgical History: Procedure Laterality Date ADENOIDECTOMY BLADDER SUSPENSION CRANIOTOMY REPAIR ANEURYSM(MCA ANEURYSM CLIPPING) Right 07/05/2022 Performed by Eric Jimenez MD at [facility] CYSTOSCOPY WITH BLADDER IRRIGATION AND [facility] BLADDER SOLUTION N/A 03/19/2023 Performed by Db Rivera MD at [facility] Diagnostic cerebral angiogram N/A 07/06/2022 Performed by Yi Bautista MD at [facility] Diagnostic cerebral angiogram N/A 01/02/2022 Performed by Yi Bautista MD at [facility] EGD with bx N/A 07/26/2016 Performed by Db Acevedo MD at [facility] ENDOSCOPY ESSURE TUBAL LIGATION FOOT SURGERY Right HYSTERECTOMY 2010 LAPAROSCOPIC CHOLECYSTECTOMY N/A 04/09/2019 Performed by Geovany Bain MD at [facility] NASAL SEPTOPLASTY W/ TURBINOPLASTY OOPHORECTOMY TONSILLECTOMY [...] for opioid reversal. 1 each 0 omega 1-xxl-xxo-fish oil (FISH OIL) 300-1,000 mg capsule,delayed release(DR/EC) [...] day. Plan: Renal bladder ultrasound. Cystoscopy urodynamics [facility] bladder solution. Current Assessment & Plan No [...] for your understanding. [facility] Miscellaneous Notes Return the office about 1 month. Please cancel the patient's appointment today for 3:45. documented in this encounter [facility] 03-19-2023 Telephone encounter Note Return the office about 1 month. Please cancel the patient's appointment today for 3:45. [facility] Work Phone: 03-16-2023 Nurse Note Preoperative Education Checklist- General Surgery date: 03/19/23 Surgery time: 930a Arrival time: 830a 1. Bring a photo ID and your insurance card with you the day of surgery. You will check in at the main lobby of the [facility]- registration desk is straight ahead as soon as you walk in. Tell them you are here for surgery. 2. If you have a Living Will/Durable Power of Bead Machine Operator for Health Care that is not on [...] after you have bathed. 5. NO nail moldovan/acrylic on at least one finger. If you are having a hand, wrist or foot surgery then all nail moldovan and artificial/acrylic nails must be removed from [...] please call the Preadmission Testing office at [phone], Mon.-Fri. 7 a.m.-3 p.m. Leave a voicemail [...] taking 0 days prior to procedure omega 9-oec-sxp-fish oil (FISH OIL) 300-1,000 mg capsule,delayed release(DR/EC) Stop taking 0 days prior to procedure omeprazole (PriLOSEC) 40 mg capsule Take morning of procedure rimegepant (NURTEC ODT) 75 mg tablet,disintegrating Stop taking 0 days prior to procedure tiZANidine (ZANAFLEX) 2 mg tablet Stop taking 0 days prior to procedure [facility] [employer] [facility] 03-16-2023 Miscellaneous Notes Preoperative Education Checklist- General Surgery date: 03/19/23 Surgery time: 930a Arrival time: 830a 1. Bring a photo ID and your insurance card with you the day of surgery. You will check in at the main lobby of the [facility]- registration desk is straight ahead as soon as you walk in. Tell them you are here for surgery. 2. If you have a Living Will/Durable Power of Bead Machine Operator for Health Care that is not on [...] after you have bathed. 5. NO nail moldovan/acrylic on at least one finger. If you are having a hand, wrist or foot surgery then all nail moldovan and artificial/acrylic nails must be removed from [...] please call the Preadmission Testing office at [phone], Mon.-Fri. 7 a.m.-3 p.m. Leave a voicemail [...] taking 0 days prior to procedure omega 5-qco-xtr-fish oil (FISH OIL) 300-1,000 mg capsule,delayed release(DR/EC) Stop taking 0 days prior to procedure omeprazole (PriLOSEC) 40 mg capsule Take morning of procedure rimegepant (NURTEC ODT) 75 mg tablet,disintegrating Stop taking 0 days prior to procedure tiZANidine (ZANAFLEX) 2 mg tablet Stop taking 0 days prior to procedure documented in this encounter [facility] 03-01-2023 Evaluation note Encounter Date Diagnosis Assessment [...] (suspected) exposure to covid-19 (ICD-10 - Z20.822) [employer] Other 09-21-2023 Evaluation note* Encounter Date Diagnosis Assessment Notes Treatment Notes Treatment Clinical Notes Oct, GERD (gastroesophageal reflux disease) (ICD-10 - K21.9) Patient reports break through and she will in crease omeprazole 40 mg to BID RTO 6 months Oct, Hiatal hernia (ICD-10 - K44.9) Oct, Schatzki's ring (ICD-10 - K22.2) [employer] Other 08-08-2023 [facility] NoteCARDIAC STRESS TEST Requesting Physician: Mariel Andre [...] to be dictated by Radiology team separately.[facility] [id number] NoteCONSULTATION CONSULTATION DATE: 01/10/2022 HISTORY OF PRESENT [...] is being seen by Dr. Bautista at [facility]. The patient is under the care of [facility] with regards to her migraines. The patient is to have significant workups performed including cardiac. The patient also is to see medical records manager, retina specialist. As such, given the patient's [...] again stress the importance of tobacco cessation.[facility] 12-20-2021 NoteCONSULTATION CONSULTATION DATE: 12/20/2021 CHIEF COMPLAINT: Chronic low back pain, left lower extremity pain. HISTORY OF PRESENT ILLNESS: This is a 41-year-old female who was referred to us by Shad Elliott, nurse practitioner, with [facility]. The patient states she has had chronic [...] The patient is being seen by a academic coach on 02/16/2022, neuropsychiatrist in April of 2022, and she is to [facility] on 01/10/2022. As such, the patient's [...] is limited at this point. CC: Shad Elliott, RAMANDEEPUniversity Hospitals St. John Medical CenterEvalutrinity health noteNo assessment information [facility] Work Phone: Evaluation noteNo InformationNort [employer] Other Evaluation note* Diagnosis Factor 5 Leiden mutation, heterozygous (CMS-HCC)- Primary [facility] Diagnosis Mixed stress and urge urinary incontinence- Primary Mixed incontinence urge and stress (male)(female) [facility] Diagnosis Mixed stress and urge urinary incontinence- Primary Mixed incontinence urge and stress (male)(female) Encounter for screening colonoscopy- Primary [facility] Diagnosis Melanocytic nevus of face, other location- Primary Neoplasm of unspecified behavior of bone, soft tissue, and skin documented in this encounter [facility] and physical note Author Siva You [facility] September 12, 2022 1:37pm Note Date/Time September 12, 2022 1:3 7pm [facility] [address] [place] [address] Gastroenterology H&P Signed Patient: Araceli Pérez MR#: [id number] : 1980 Acct:[id number] Age/Sex: 42 / F Adm Date: 3 Loc: Room: Type: [facility] Attending Dr: Siva You MD Copies to: NON STAFF Siva Yuo MD~ Date of Service: 09/12/2022 HISTORY & [...] is an appropriate candidate for the procedure. Siav You MD Documented By: Siva You MD 09/12/226 Signed By: <Electronically signed by Siva You MD> 09/12/22 [id number] [facility] Work Phone: History general Narrative - Reported* [...] Surgical History craniotomy Hospitalization History see above [employer] Other Hospital Discharge instructions Additional Instructions DISCHARGE [...] problems. -Follow up with PCP. -Office number [phone].[facility] Work Phone: InstructionsNot on filedocumented in this encounter [facility] on filedocumented in this encounter [facility]ructionsNot on filedocumented in this encounter [facility] System[facility]ructionsNot on filedocumented in this encounter [facility] System[facility]ructionsNot on filedocumented in this encounter [facility] System[facility]ructionsNot on filedocumented in this encounter [facility] Summary Purpose Family History Relationship Condition Age at Onset Recorded Date/T angel grandparent Cerebrovascular accident (CVA) Unknown Diabetes mellitus Unknown Heart disease Unknown Malignant neoplasm of stomach Unknown father Diabetes mellitus Unknown Advance Directives Advance Directive Response Recorded Date/ Time Advance Directives No December 14, 2021 3:45pm Advance Directive Response Recorded Date/ Time Advance Directives No December 14, 2021 4:45pm Date Activated Date Inactivated Comments 07/05/2022 12:30 PM 07/07/2022 4:57 PM Latest Code Status on File Code Status Date Activated Date Inactivated Comments Full Code 07/05/2022 12:30 PM 07/07/2022 4:57 PM Chief Complaint and Reason for Visit Chief Complaint r27.0 Chief Complaint EOE, GERD Additional Source Comments INFORMATION SOURCE (unrecogn ized section and content) DATE CREATED AUTHOR 08/06/2021 [facility] DATE CREATED AUTHOR AUTHOR'S ORGANIZ ATION 06/08/2022 [facility] DATE CREATED AUTHOR AUTHOR'S ORGANIZ ATION 09/18/2022 [place] DATE CREATED AUTHOR AUTHOR'S ORGANIZ ATION 12/06/2023 [facility] DATE CREATED AUTHOR AUTHOR'S ORGANIZ ATION 01/23/2024 [facility] DATE CREATED AUTHOR AUTHOR'S ORGANIZ ATION 05/31/2024 [place] DATE CREATED AUTHOR AUTHOR'S ORGANIZ ATION 06/02/2024 [facility] DATE CREATED AUTHOR AUTHOR'S ORGANIZ ATION 06/14/2024 [facility] Care Teams (unrecognized sec tion and content) Team Status: Inactive Member Role Status Dates Ron Wallace DO Attending Provider Active NON STAFF Primary Care Provider Active Team Status: Active Member Role Status Dates NON STAFF Primary Care Provider Active Team Status: Inactive Member Role Status Dates NON STAFF Primary Care Provider Active Siva You MD Attending Provider Active Screen Door Maker Relationship Specialty Start Date End Date Shammo, Shad, PLANT AND MACHINERY VALUER-ORAL PATHOLOGIST [address] [place] [address] PCP - General Primary Care 12/06/21 Screen Door Maker Relationship Specialty Start Date End Date Shammo, Shad, PLANT AND MACHINERY VALUER-ORAL PATHOLOGIST [address] [place] [address] PCP - General Primary Care 12/06/21 Screen Door Maker Relationship Specialty Start Date End Date Shammo, Shad, PLANT AND MACHINERY VALUER-ORAL PATHOLOGIST [address] [address] PCP - General Primary Care 12/06/21 Screen Door Maker Relationship Specialty Start Date End Date Bhumi Wayne PLANT AND MACHINERY VALUER-MANAGER SIX SIGMA [address] [place] [address] PCP - General Family Medicine 11/12/23 Screen Door Maker Relationship Specialty Start Date End Date Bhumi Wayne PLANT AND MACHINERY VALUER-MANAGER SIX [employer] [address] [place] [address] PCP - General Family Medicine 11/12/23 Screen Door Maker Relationship Specialty Start Date End Date Bhumi Wayne PLANT AND MACHINERY VALUER-MANAGER SIX [employer] [address] [place] [address] PCP - General Family Medicine 11/12/23 Screen Door Maker Relationship Specialty Start Date End Date Bhumi Wayne PLANT AND MACHINERY VALUER-MANAGER SIX [employer] [address] [place] [address] PCP - General Family Medicine 11/12/23 Screen Door Maker Relationship Specialty Start Date End Date Sharmin Poole PA PCP - NOMEli Razo [facility] 08/06/23 Screen Door Maker Relationship Specialty Start Date End Date Sharmin Poole PA PCP - NOMEli Razo [facility] 08/06/23 Screen Door Maker Relationship Specialty Start Date End Date Bhumi Wayne, PLANT AND MACHINERY VALUER-MANAGER SIX [employer] [address] [place], [place] [id number] PCP - [facility] Medicine 11/12/23 Goals (unrecognized section and content) Goals may [...] FOR VISIT (unrecogniz ed section and content) Reason Comments Follow-up Reason Comments Colon Cancer Screening First colonoscopy Reason Comments Suspicious Skin Lesion Specialty Diagnoses / Procedures Referred By Conttalia t Referred To Contact Dermatology Diagnoses scalp lesion Procedures office visit Marisol Canales MD [address] [place] [address] fax: Chau Williasmon MD [address] [place] [address] Phone: tel: fax: Referral ID Status Reason Start Date Expiration Date Visits Re quested Visits Authorized [id number] Closed 05/15/2024 11/11/2024 1 1 Reason Onset Date Comments Question appointment 06/16/2024 FOR RECORDS PERTAINING TO PATIENTS WHO ARE [...] BE BASED ON THE PRIMARY CLINICAL RECORDS. [facility]. provides no warranty or guarantee of the accuracy or completeness of information in this document.
--- NOTE | 2024-06-24 17:15 | ED.GENADUL1 ---
HPI HPI - General Adult General Chief complaint: Back Pain/Injury Stated complaint: BACK PAIN Time Seen by Provider: 06/24/24 16:14 Source: patient Mode of arrival: walk-in Limitations: no limitations History of Present Illness HPI narrative: This 43-year-old female states she lifted up her 2-year-old child 5 days ago and that has triggered her back pain. She has a history of fibromyalgia. She states the pain is in the lower back mostly on the left side and radiates up and down the back and even into her legs. She has difficulty walking because of it. She does not report weakness of the legs. She denies loss of bladder control. 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 Related Data Home Medications ?Medication ?Instructions ?Recorded ?Confirmed amitriptyline 25 mg tablet 25 mg PO DAILY 04/09/24 06/24/24 amlodipine 10 mg tablet 10 mg PO DAILY 04/09/24 06/24/24 atorvastatin 40 mg tablet 40 mg PO DAILY 04/09/24 06/24/24 losartan 100 mg tablet 100 mg PO DAILY 04/09/24 06/24/24 omega-3 fatty acids-fish oil 300 1 cap PO DAILY 04/09/24 06/24/24 mg-1,000 mg capsule omeprazole 40 mg capsule,delayed 40 mg PO BID 04/09/24 06/24/24 release Previous Rx's ?Medication ?Instructions ?Recorded hydrocodone 5 mg-acetaminophen 325 1 tab PO TID PRN pain 4 days #12 06/24/24 mg tablet tabs ketorolac 10 mg tablet 10 mg PO TID PRN pain 4 days #12 06/24/24 tabs prednisone 20 mg tablet 40 mg (2 x 20 mg) PO DAILY 5 days 06/24/24 #10 tabs Allergies Allergy/AdvReac Type Severity Reaction Status Date / Time Penicillins Allergy Intermediate shortness Verified 06/24/24 16:20 of breath duloxetine (From Cymbalta) AdvReac Intermediate Vomiting Verified 06/24/24 16:20 naproxen (From EC-Naproxen) AdvReac Intermediate Rash Verified 06/24/24 16:20 nickel AdvReac Rash Uncoded 06/24/24 16:20 Opioid HPI Opioid Management Most Recent Opioid Data: Last Pain Scale 10 06/24/24, 17:35 Review of Systems ROS Status of ROS 10 or more systems reviewed and unremarkable except as noted in history and below [facility] Social History Smoking status: Current every day smoker Little interest or pleasure in doing things: not at all Feeling down, depressed, or hopeless: not at all Exam Narrative Exam Narrative: Patient appears in distress due to pain. Vital signs are reviewed and are normal. HEENT exam is normal to inspection. Neck is supple. Lung sounds are clear to auscultation bilaterally. Heart has regular rate and rhythm. Abdomen soft and benign. Patient has multiple areas of tenderness to light palpation across the entire back but mostly her discomfort lies on the left paralumbar soft tissue. No overlying skin rashes identified. Tone and power are normal and symmetric in the extremities. Constitutional Vital Signs, click to edit/add: Last Vital Signs Temp 97.7 F 06/24/24 16:20 Pulse 86 06/24/24 17:42 Resp 16 06/24/24 17:42 BP 128/76 06/24/24 17:42 Pulse Ox 98 06/24/24 17:42 O2 Del Method Room Air 06/24/24 17:42 Course Vital Signs Vital signs: Vital Signs Temperature 97.7 F 06/24/24 16:20 Pulse Rate 98 H 06/24/24 16:20 Respiratory Rate 18 06/24/24 16:20 Blood Pressure 119/86 06/24/24 16:20 Pulse Oximetry 99 06/24/24 16:20 Oxygen Delivery Method Room Air 06/24/24 16:20 Temperature 97.7 F 06/24/24 16:20 Pulse Rate 86 06/24/24 17:42 Respiratory Rate 16 06/24/24 17:42 Blood Pressure 128/76 06/24/24 17:42 Pulse Oximetry 98 06/24/24 17:42 Oxygen Delivery Method Room Air 06/24/24 17:42 Medical Decision Making [facility] Narrative Medical decision making narrative: Patient presents with musculoskeletal pain in the lower back mainly on the left side. In the ED she is treated with Decadron 10 mg IM Dilaudid 1 mg IM Toradol 30 mg IM and 4 mg of sublingual Zofran. He is discharged with a prescription for [place], Toradol and prednisone. She is referred to PCP for early follow-up and may return for worsening symptoms. At this time I do not see any any indication for imaging studies. Discharge Plan Discharge Chief Complaint: Back Pain/Injury Clinical Impression: Strain of lumbar region Patient Disposition: Home, Self-Care Time of Disposition Decision: 17:07 Condition: Good Mode of Transportation: Private Vehicle Prescriptions / Home Meds: New ketorolac 10 mg tablet 10 mg PO TID PRN (Reason: pain) 4 Days Qty: 12 0RF hydrocodone-acetaminophen 5-325 mg tablet 1 tab PO TID PRN (Reason: pain) 4 Days Qty: 12 0RF prednisone 20 mg tablet 40 mg PO DAILY 5 Days Qty: 10 0RF No Action atorvastatin 40 mg tablet 40 mg PO DAILY omeprazole 40 mg capsule,delayed release(DR/EC) 40 mg PO BID amitriptyline 25 mg tablet 25 mg PO DAILY amlodipine 10 mg tablet 10 mg PO DAILY losartan 100 mg tablet 100 mg PO DAILY omega-3 fatty acids-fish oil 300-1,000 mg capsule 1 cap PO DAILY Print Language: Burundian Instructions: Low Back Strain (ED) Additional Instructions: Medications as prescribed. Follow-up with your physician in the next 2 or 3 days. Return for worsening symptoms. Referrals: [facility] [Primary Care Provider, Unknown] - 1 week Discharge Date/Time: 06/24/24 17:42
[2024-06-24] MEDS: ONDANSETRON 4 MG RAPDIS TABLET SL (17:30)
[2024-06-24] MEDS: HYDROMORPHONE HCL 1 MG/ML CARTRIDGE IM (17:35)
[2024-06-24] MEDS: DEXAMETHASONE SOD PHOS 10 MG/ML VIAL IM (17:35)
[2024-06-24] MEDS: KETOROLAC TROMETHAMINE 30 MG/ML VIAL IM (17:35)
[2024-06-24 17:42] VITALS: BP 128/76; PULSE 86; O2SAT 98
== END 2024-06-24 17:42 | disposition home or self-care (01) ==
PROVIDERS: Emergency Provider Emergency Medicine
DX: S39.012A Strain of muscle, fascia and tendon of lower back, initial encounter (principal); X50.9XXA Other and unspecified overexertion or strenuous movements or postures, initial encounter; M79.7 Fibromyalgia; F17.200 Nicotine dependence, unspecified, uncomplicated
CPT/HCPCS: 96372; 99284; J1100; J1171; J1885; Q0162

== ENCOUNTER 2024-07-10 08:52 | Outpatient (OUT) | payer MEDICAID, SELFPAY ==
--- OUTSIDE RECORDS SUMMARY | 2024-07-10 09:08 | XMS_ITS | CCD ---
Author Organization [facility] CliniSyhi Care Team Providers Care Electrogalvanizing Machine Operator Name Role Phone DO Ron Wallace Attending Provider [phone] NON STAFF Primary Care Provider Unavailabl e [...] Unavailable MISC, DR ALVAREZ Primary Care Unavailable IRMA ROTH Admitting Unavailable ELAINE, MICHELLE Consulting Unavailable [...] UnavailMD Siva De La Garza Attending Provider [phone] Siva You Admitting Unavailable Siva You Attending Unavailable NON STAFF Primary Care Unavailable NON STAFF Primary Care Unavailable Joe Wallace Admitting Unavailab Joe Clarke Attending Unavailab Albaro Joseph Unavailable Kisha Barkley Unavailable LASHAUN ANDRE Attending Unavailable ROOSEVELT FORBES Attending Unavailable Shammo FRENCH PASTRY COOK-ELECTRIC MOTOR REPAIRER, Shad Primary Care Provider Volodymyr FRENCH PASTRY COOK-LABORER [facility] [place], [place] Primary Care Provider Ngsue, Kadori Attending Unavailable Ngirabakunzi, Kadori Primary Care Unavailable Sharmin Walker Unavailable CHAU WILLIAMSON Attending Unavailable RASHAD, MARISOL Referring Unavailable Volodymyr FRENCH PASTRY COOK-LABORER [employer] [facility], [place] Primary Care Provider [phone] VOLODYMYR, BHUMI Referring Unavailable VOLODYMYR, BHUMI Primary Care Unavailable DB ELIZABETH Admitting Unavailable DB ELIZABETH Attending Unavailable VOLODYMYR, BHUMI Primary Care Unavailable RASHAD, MARISOL Referring Unavailable VOLODYMYR, BHUMI Primary Care Unavailable RASHAD, MARISOL Referring Unavailable VOLODYMYR, BHUMI Primary Care Unavailable RASHAD, MARISOL Referring Unavailable VOLODYMYR, BHUMI Primary Care Unavailable RASHAD, MARISOL Referring Unavailable VOLODYMYR, BHUMI Primary Care Unavailable YU GUERRIER Attending Unavailable VOLODYMYR, BHUMI Referring Unavailable VOLODYMYR, BHUMI Primary Care Unavailable VOLODYMYR, BHUMI Primary Care Unavailable RASHAD, MARISOL Referring Unavailable [facility] Attending Unavailable Allergies Allergy Classification Reported Allergen(s) Allergy Type Date of Onset Reaction(s) Facility (2 sources) DULoxetine Drug Allergy 12-21-19 [facility] Repository (5 sources) Leucine; Translations: [NICKEL] Drug Allergy 08-05-19 19 [facility] (4 sources) Penicillin Drug Allergy 05-28-19 21 Unknown [facility] (18 sources) DULoxetine; Translations: [duloxetine] Drug Allergy 12-29-19 22 Vomiting [facility] (20 sources) Naproxen; Translations: [naproxen] Drug Allergy 06-09-19 17 Hives [facility] (20 sources) Penicillins; Translations: [Penicillins] Allergy to substance 03-20-19 17 Shortness Of Breath, Rash [facility] (1 source) Unable to Assess Drug allergy (disorder) 12-21-19 [facility] Repository (3 sources) penicillAMINE Drug Allergy anaphylaxis [facility] Other (11 sources) nickel Drug Allergy 08-05-19 19 anaphylaxis [facility] (1 source) Bee pollen; Translations: [BEE POLLEN] Propensity to adverse reactions to drug (disorder) 01-12-20 [facility] Repository (2 sources) DULoxetine Drug Allergy 06-03-19 [facility] (2 sources) nickel sulfate Drug Allergy 06-03-19 [facility] Medications Current Medications Medication Drug Class(es) [...] Discontinued (Therapy completed) Tylenol prn Acti ve [id number] actuat albuterol 0.09 mg/actuat metered dose [...] Start: 12-05-2021 take 2 tablets by mo [facility] once daily losartan (COZAAR) 50 mg [...] opioid reversal. 1 each 07/07/2022 Active omega 9-kbm-jai-fish oil (FI SH OIL) 300-1,000 mg capsule,delayed release(DR/EC) (10 sources) Start: 05-22-2022 omega 3-dha-ep a-fish oil (FISH OIL) 300-1,000 mg capsule,delayed release(DR/EC) Take 1 capsule by mouth in the morning. 05/22/2022 Active Start: 05-22-2022 omega 3-dha-ep a-fish oil (FISH OIL) 300-1,000 mg capsule,delayed release(DR/EC) Take 1 capsule by mouth in the morning. 0 05/22/2022 Active Crocker-3 Fatty Acids-Fish Oil (1 source) Start: 09-12-2022 take 1 capsule by mouth once daily Crocker-3 Fatty Acids-Fish Oil Active 1 CAP PO [...] tablet (8 sources) Cholinergic Muscarinic Antagonist Start: 04-25-2023 take 1 [...] symptoms and ill-defined conditions (20 sources) Mixed urinary incontinence; Translations: [Mixed incontinence] Onset: 3 04-25-2023 Chronic Headache; including migraine (13 sources) Migraine; Translations: [Migraine, unspecified, not intractable, without status migrainosus] Onset: 7 06-08-2016 Chronic Headache; including migraine (2 sources) Headache; including migraine; Translations: [Headache, unspecified] Onset: 5 Immunizations and screening for infectious disease (1 [...] unspecified parts of face] 06-02-2024 Episodic Other circulatory disease (1 source) Personal history of other diseases of the circulatory system; Translations: [Personal history of other diseases of the circulatory system] Onset: 5 Episodic Other gastrointestinal disorders (1 source) Dysphagia, [...] Translations: [ACUTE PHARYNGITIS UNSPECIFIED] Onset: 3 Episodic Residual codes; unclassified (1 source) Other specified postprocedural states; Translations: [Other specified postprocedural states] Onset: 5 Episodic Spondylosis; intervertebral disc disorders; other back problems (1 source) Occipital neuralgia; Translations: [Occipital neuralgia] Onset: 5 Episodic Substance-related disorders (1 source) Nicotine dependence, cigarettes, uncomplicated; Translations: [NICOTINE DEPEND CIGARETTES UNCOMP] Onset: 2 Chronic Unclassified (3 sources) LOW BACK PAIN, UNSPECIFIED; Translations: [LOW BACK PAIN, UNSPECIFIED] Onset: 2 Unclassified (1 source) Screening Onset: 4 Unclassified (1 source) New Patient Onset: 5 Unclassified (1 source) Colon Cancer Screening Onset: 4 Past or Other Problems [...] Test Name Value Interpretation Reference Range Facility CT BRAIN WO CONTon CT BRAIN WO CONT CT BRAIN WO CONT STUDY: CT HEAD WITHOUT CONTRAST CLINICAL HISTORY: [...] Cedrick Hogue MD on 07/07/2024 7:20 AM Normal [facility] CT CTA HEADon 07-07-[address] CTA HEAD HISTORY: A 43-year-old female with a history [...] Destin Gomes MD on 07/07/2024 3:17 PM Normal [facility] No Panel Informationon 06-02 Type of biopsy: [...] taken Amount of lidocaine used: 1.0 cc [facility] Type of biopsy: tangential Informed consent: [...] taken Amount of lidocaine used: 1.0 [facility] Type of biopsy: tangential Informed [...] taken Amount of lidocaine used: 1.0 cc [facility] Office Visiton 01-21-2024 Follow-up visit [id number] Jt Pérez 1980 F Date Provider Department Center 01/21/2024 ROOSEVELT SABILLON TED [facility] Family History Problem Relation Age of Onset Heart attack Father Heart attack Paternal Grandfather Stroke Paternal Grandfather Family Status - Relation Status Age at Father Paternal Grandfather Level of Service:47257 [place] OFFICE/OUTPATIENT ESTABLISHED MOD MDM 30 MIN Normal [facility] Surgical Pathologyon 024 Surgical Pathology Normal [facility] Comment on above: Result Comment: [facility] [address] [place] [address] Surgical Pathology Consultation Patient Name:ARACELI PÉREZ:1980 (Age: 43)Gender:FTaken:12/31/2023eported:01/09/2024hysician(s):Db Elizabeth D.O. ([phone])Copy To: Rec. #:[id number]: #[id number] Final Pathologic Diagnosis Cecal colon polyp; polypectomy: Tubular adenoma (1 fragment). Unremarkable colonic mucosa (2 fragments). Report Electronically Signed Out wak/01/09/2024Rubio Burgess MD Interpretation performed at [facility], [address] [place] [address], License number: [id number]. Clinical History Screening. 1. cold snared a polyp in the cecum. Gross Description Received in formalin labeled PRISCILA, polyp in cecum are 18 christine delicate to friable soft tissue bits, 0.1-0.4 cm next with vegetative material. The specimens are filtered and submitted in single cassette. (1,ns,[id number], m8) TB tgb/01/01/2024NSK Specimen(s) Received Cecal colon polyp Fee Codes(s): 1; 28327 36on 11-05-2023 36 Concerning cholester ol levels ---- Message ----- From: Lashaun Andre NP Sent: 10/30/2023 11:21 AM EDT To: Kayla Crouch MA Subject: RE: Scan So let her know her cholesterol levels are very good, much better than last year with lipitor Normal [facility] Telephoneon 11-05-2023 Telephone [id number] Jt Pérez tyesha Keane 1980 F Date Provider Department Center 11/05/2023 [id number], TANA BH TED [facility] Family History Problem Relation Age of Onset Heart attack Father Heart attack Paternal Grandfather Stroke Paternal Grandfather Family Status - Relation Status Age at Father Paternal Grandfather Normal [facility] 37on 10-22-2023 35 Start taking hydrochlorothiazide daily in the morning for blood pressure Please have blood drawn next week to check kidney function and electrolytes and cholesterol level- so you must be fasting for labs Normal [facility] Office Visiton 10-22-2023 Follow-up visit [id number] Jt Pérez 1980 F Date Provider Department Center 10/22/2023 120-LASHAUN ANDRE [facility]ED [facility] Family History Problem Relation Age of Onset Heart attack Father Heart attack Paternal Grandfather Stroke Paternal Grandfather Family Status - Relation Status Age at Father Paternal Grandfather Level of Service:59014 [place] OFFICE/OUTPATIENT ESTABLISHED LOW MDM 20 MIN Normal [facility] COVID + FLU Quick Testingon 03-01-2023 SARS-CoV-2 (COVID-19) RNA SARAH+probe Ql (Unsp spec) Negative [facility] [employer] Other COVID + FLU Quick Testing Negative [facility] Other [facility] 09-12-2022 L --- Specimen: [id number] Received: 09/12/22 Status: KASSIDY Martinez Num: [id number] Spec Type: Surgical Subm Dr: Siva You MD Tissues: A Esophagus Biopsy (ESOPHAGUS BX) Procedures: HE/2, Gross/Micro L4 Age/ Patient Sex Location Account Attending Physician Araceli Pérez 42/F [id number] Siva You MD SPEC NUM: [id number] RECD: 09/12/22 STATUS: KASSIDY MARTINEZ NUM: [id number] SHANNON: 09/12/22- [facility] DR: Siva You MD ENTERED: 09/12/[address] [facility] DR: ALDAIR TYPE: Surgical DEPT: S ORDERED: [...] The microscopic examination confirms the diagnosis. Specimen: [id number] Received: 09/12/22 Status: KASSIDY Martinez Num: [id number] Spec Type: Surgical Subm Dr: Siva You MD Tissues: A Esophagus Biopsy (ESOPHAGUS BX) Procedures: HE/Alfonso, Gross/Micro L4 Patient: Araceli Pérez [id number] (Continued) Specimen: Received: 09/12/22 (Continued) Signed (signature on file) Rory Jade MD 09/14/22 1155 Specimen: [id number] Received: 09/12/22 Status: KASSIDY Martinez Num: [id number] Spec Type: Surgical Subm Dr: Siva You MD Tissues: A Esophagus Biopsy (ESOPHAGUS BX) Procedures: [place] ESQUEDA/Eve L4 Patient: Araceli Pérez [id number] (Continued) Specimen: [id number] Received: 09/12/22 (Continued) CPT Codes 94468 Specimen: [id number] Received: 09/12/22 Status: KASSIDY Martinez Num: [id number] Spec Type: Surgical Subm Dr: Siva You MD Tissues: A Esophagus Biopsy (ESOPHAGUS BX) Procedures: [place] ESQUEDA/Eve L4 Patient: Araceli Pérez [id number] (Continued) Signed (signature on file) Rory Jade MD 09/14/22 1155 Normal [facility] LIPID PROFILEon 04-21-2022 CHOL-HDL RATIO NORM SEE BELOW Normal [facility] Comment on above: Result Comment: 3.3 - 4.4 LOW RISK 4.4 - 7.1 AVERAGE RISK 7.1 - 11.0 MODERATE RISK >11.0 HIGH RISK Performed By: #### L IPID, CMP #### [facility] [address] [address] [address] Edil Gayle Cholesterol [Mass/Vol] 247 mg/dL Critically high <=200 [facility] Comment on above: Performed By: #### L IPID, CMP #### [facility] [address] [address] [address] Edil Gayle Cholesterol in HDL [Mass/Vol] 46 mg/dL Normal 40-60 [facility] Comment on above: Performed By: #### L IPID, CMP #### [facility] [address] [address] [address] Edil Gayle Cholesterol in LDL [Mass/Vol] 180.6 mg/dL Normal [facility] Comment on above: Performed By: #### L IPID, CMP #### [facility] [address] [address] [address] Edil Gayle Cholesterol.total/C holesterol in HDL [Mass ratio] 5.4 {ratio} Normal [facility] Comment on above: Performed By: #### L IPID, CMP #### [facility] [address] [address] [address] Edil Gayle HDL NORMAL > or = 60 mg/dl - LO W CARDIOVASCULAR RISK <40 mg/dl - HIGH CARDIOVASCULAR RISK Normal [facility] Comment on above: Performed By: #### L IPID, CMP #### [facility] [address] [address] [address] Edil Gayle LDL CALC NORMAL SEE BELOW Normal [facility] Comment on above: Result Comment: <100 mg/dl OPTIMAL 100 - 129 mg/dl NEAR OR ABOVE OPTIMAL 130 - 159 mg/dl BORDERLINE HIGH 160 - 189 mg/dl HIGH >190 mg/dl VERY HIGH Performed By: #### L IPID, CMP #### [facility] [address] [address] [address] Edil Gayle Triglyceride [Mass/Vol] 102 mg/dL Normal <=150 [facility] Comment on above: Performed By: #### L IPID, CMP #### [facility] [address] [address] [address] Edil Gayle VLDL CALC 20.4 mg/dL Normal [facility] Comment on above: Performed By: #### L IPID, CMP #### [facility] [address] [address] [address] Edil Gayle PROF 14(COMP METB)on 023 Albumin [Mass/Vol] 3.4 g/dL Normal 3.4-5.0 [facility] Comment on above: Performed By: #### L IPID, CMP #### [facility] [address] [place] [address] Dr. Edil Gayle Albumin/Globulin [Mass ratio] 0.9 {ratio} Normal [facility] Comment on above: Performed By: #### L IPID, CMP #### [facility] [address] [place] [address] Dr. Edil Gayle ALP [Catalytic activity/Vol] 117 U/L Critically high 46-116 [facility] Comment on above: Performed By: #### L IPID, CMP #### [facility] [address] [address] [address] Edil Gayle ALT [Catalytic activity/Vol] 25 U/L Normal 14-59 [facility] Comment on above: Performed By: #### L IPID, CMP #### [facility] [address] [address] [address] Edil Gayle Anion gap [Moles/Vol] 11.5 mmol/L Normal [facility] Comment on above: Performed By: #### L IPID, CMP #### [facility] [address] [place] [address] Dr. Edil Gayle AST [Catalytic activity/Vol] 16 U/L Normal 15-37 [facility] Comment on above: Performed By: #### L IPID, CMP #### [facility] [address] [place] [address] Dr. Edil Gayle Bilirubin [Mass/Vol] 0.4 mg/dL Normal 0.2-1.0 [facility] Comment on above: Performed By: #### L IPID, CMP #### [facility] [address] [place] [address] Dr. Edil Gayle Calcium [Mass/Vol] 8.9 mg/dL Normal 8.5-10.1 [facility] Comment on above: Performed By: #### L IPID, CMP #### [facility] [address] [place] [address] Dr. Edil Gayle Chloride [Moles/Vol] 106 mmol/L Normal 98-107 [facility] Comment on above: Performed By: #### L IPID, CMP #### [facility] [address] [address] [address] Edil Gayle CO2 [Moles/Vol] 29.8 mmol/L Normal 21.0-32.0 [facility] Comment on above: Performed By: #### L IPID, CMP #### [facility] [address] [address] [address] Edil Gayle Creatinine [Mass/Vol] 0.58 mg/dL Normal 0.55-1.02 [facility] Comment on above: Performed By: #### L IPID, CMP #### [facility] [address] [address] [address] Edil Gayle EGFR-AF AZERBAIJANI >60 Normal >=60 [facility] Comment on above: Performed By: #### L IPID, CMP #### [facility] [address] [address] [address] Edil Gayle EGFR-NON AF AZERBAIJANI >60 Normal >=60 [facility] Comment on above: Performed By: #### L IPID, CMP #### [facility] [address] [address] [address] Edil Gayle Globulin (S) [Mass/Vol] 3.6 g/dL Normal [facility] Comment on above: Performed By: #### L IPID, CMP #### [facility] [address] [address] [address] Edil Gayle Glucose [Mass/Vol] 103 mg/dL Normal 74-106 [facility] Comment on above: Performed By: #### L IPID, CMP #### [facility] [address] [address] [address] Edil Gayle Potassium [Moles/Vol] 4.3 mmol/L Normal 3.5-5.1 [facility] Comment on above: Performed By: #### L IPID, CMP #### [facility] [address] [place] [address] Dr. Edil Gayle Protein [Mass/Vol] 7.0 g/dL Normal 6.4-8.2 [facility] Comment on above: Performed By: #### L IPID, CMP #### [facility] [address] [address] [address] Edil Gayle Sodium [Moles/Vol] 143 mmol/L Normal 136-145 [facility] Comment on above: Performed By: #### L IPID, CMP #### [facility] [address] [place] [address] Dr. Edil Gayle Urea nitrogen [Mass/Vol] 12.0 mg/dL Normal 7.0-18.0 [facility] Comment on above: Performed By: #### L IPID, CMP #### [facility] [address] [place] [address] Dr. Edil Gayle Urea nitrogen/Creatinine [Mass ratio] 20.7 mg/mg Normal [facility] Comment on above: Performed By: #### L IPID, CMP #### [facility] [address] [place] [address] Dr. Edil Gayle CULTURE THROATon 04-03-2022 CULTURE THROAT Culture Observations : NORMAL RESPIRATORY JAYLEEN. Normal [facility] Comment on above: Performed By: #### F T4 #### [facility] [address] [place] [address] Dr. Edil Gayle RESPIRATORY PANEL PLUSon Adenovirus Not detected Normal NOT DETECTED [facility] Comment on above: Performed By: #### F T4 #### [facility] [address] [place] [address] Dr. Edil Monte. Parapertusis Not detected Normal NOT DETECTED [facility] Comment on above: Performed By: #### F T4 #### [facility] [address] [place] [address] Dr. Edil Monte. Pertussis Not detected Normal NOT DETECTED [facility] Comment on above: Performed By: #### F T4 #### [facility] [address] [place] [address] Dr. Edil Gayle Chlamydia Pneumoniae Not detected Normal NOT DETECTED [facility] Comment on above: Performed By: #### F T4 #### [facility] [address] [place] [address] Dr. Edil Gayle Coronavirus 229E Not detected Normal NOT DETECTED [facility] Comment on above: Performed By: #### F T4 #### [facility] [address] [place] [address] Dr. Edil Gayle Coronavirus HKU1 Not detected Normal NOT DETECTED [facility] Comment on above: Performed By: #### F T4 #### [facility] [address] [place] [address] Dr. Edil Gayle Coronavirus NL63 Not detected Normal NOT DETECTED [facility] Comment on above: Performed By: #### F T4 #### [facility] [address] [place] [address] Dr. Edil Gayle Coronavirus OC43 Not detected Normal NOT DETECTED [facility] Comment on above: Performed By: #### F T4 #### [facility] [address] [place] [address] Dr. Edil Gayle Influenza A H1 Not detected Normal NOT DETECTED [facility] Comment on above: Performed By: #### F T4 #### [facility] [address] [place] [address] Dr. Edil Gayle Influenza A H1 2009 Not detected Normal NOT DETECTED [facility] Comment on above: Performed By: #### F T4 #### [facility] [address] [place] [address] Dr. Edil Gayle Influenza A H3 Not detected Normal NOT DETECTED [facility] Comment on above: Performed By: #### F T4 #### [facility] [address] [place] [address] Dr. Edil Gayle Influenza B Not detected Normal NOT DETECTED [facility] Comment on above: Performed By: #### F T4 #### [facility] [address] [place] [address] Dr. Edil Gayle Metapneumovirus Not detected Normal NOT DETECTED [facility] Comment on above: Performed By: #### F T4 #### [facility] [address] [place] [address] Dr. Edil Gayle Mycoplas. Pneumoniae Not detected Normal NOT DETECTED [facility] Comment on above: Performed By: #### F T4 #### [facility] [address] [place] [address] Dr. Edil Gayle Parainfluenza 1 Not detected Normal NOT DETECTED [facility] Comment on above: Performed By: #### F T4 #### [facility] [address] [place] [address] Dr. Edil Gayle Parainfluenza 2 Not detected Normal NOT DETECTED [facility] Comment on above: Performed By: #### F T4 #### [facility] [address] [place] [address] Dr. Edil Gayle Parainfluenza 3 Not detected Normal NOT DETECTED [facility] Comment on above: Performed By: #### F T4 #### [facility] [address] [place] [address] Dr. Edil Gayle Parainfluenza 4 Not detected Normal NOT DETECTED [facility] Comment on above: Performed By: #### F T4 #### [facility] [address] [place] [address] Dr. Edil Gayle Rhino/Enterovirus Not detected Normal NOT DETECTED [facility] Comment on above: Performed By: #### F T4 #### [facility] [address] [place] [address] Dr. Edil Gayle RP2 Header 1 RESPIRATORY PANEL: VIRUSES Normal [facility] Comment on above: Performed By: #### F T4 #### [facility] [address] [place] [address] Dr. Edil Gayle RP2 Header 2 RESPIRATORY PANEL: BACTERIA Normal [facility] Comment on above: Performed By: #### F T4 #### [facility] [address] [place] [address] Dr. Edil Gayle RSV Not detected Normal NOT DETECTED [facility] Comment on above: Performed By: #### F T4 #### [facility] [address] [place] [address] Dr. Edil Gayle SARS-CoV-2 (COVID-19) RNA SARAH+probe Ql (Unsp spec) Not detected Normal NOT DETECTED [facility] Comment on above: Performed By: #### F T4 #### [facility] [address] [place] [address] Dr. Edil Gayle STREPT SCREENon 04-03-2022 STREP SCREEN A Negative Normal NEGATIVE [facility] Comment on above: Performed By: #### F T4 #### [facility] [address] [place] [address] Dr. Edil Gayle ECHOCARDIO M/2D COMPLETEon 1 04-03-2021 ECHOCARDIO M/2D COMPLETE Patient: ARACELI PÉREZ Exam Date: 01/31/2022 : 1980 Gender:F Ordering : LASHAUN ANDRE Admission #: [id number] Family : Order #: [id number] CLICK HERE TO VIEW EXAM ECHOCARDIOGRAM REPORT [...] Borges M.D. on 02/07/2022 at 09:43 Normal [facility] NM STRESS/REST MULTIon 01-31 NM STRESS/REST MULTI Patient: ARACELI PÉREZ Exam Date: 01/31/2022 : 1980 Gender:F Ordering : LASHAUN ANDRE Admission #: [id number] Family : Order #: [id number] CLICK HERE TO VIEW EXAM RADIOLOGY REPORT [...] MD on 02/02/2022 at 11:41 Normal [facility] con [facility] [place] [address] MRI Report Signed Patient: Araceli Pérez MR#: [id number] : 1980 Acct:[id number] Age/Sex: 41 / F ADM Date: 12/20/21 Loc: MR Room: Type: [facility] Attending Dr: Ron Wallace DO Copies [...] Efrain Chapman M.D.12/21/2021 8:39 AM Dictation Location: [place] [address] Transcribed By: [facility] 12/21/21838 Dictated By: Efrain Chapman II, MD 12/21/21815 Signed By: 12/21/21838 [facility] XR LSPINE W_OBLS AND FLEX_EX Ton [...] by: MARCE FERREIRA Date: 2021-12-21 07:11 Normal [facility] US SINGLE QUAD RT UPPERon US [...] by: MARCE FERREIRA Date: 2021-12-11 08:32 Normal [facility] XR CHEST 2 Von 12-06-2021 XR [...] MARCE FERREIRA Date: 2021-12-06 15:35 Normal [facility] MAMM SCREEN 3D TISHA CADon 11-08-2021 MG MAMM SCREEN 3D TISHA CAD Patient: ARACELI PÉREZ Exam Date: 11/08/2021 : 1980 Gender:F Ordering : SHAD [employer] Admission #: [id number] Family : Order #: [id number] CLICK HERE TO VIEW EXAM RADIOLOGY REPORT PROCEDURE: MAMMOGRAM SCREENING 3D BILATERAL CAD COMPARISON: MG MAMM SCREEN 3D TISHA CAD, 07/19/2020. INDICATIONS: Screening mammography Calculator Name NCI Breast Cancer Risk Assessment Tool 5 Year Breast Cancer Risk 0.50% Lifetime Breast Cancer Risk 6.50% Personal Breast Cancer No Personal Ovarian Cancer No Treatments None Family Cancers None LOCATION: [facility] BREAST COMPOSITION: Scattered areas fibroglandular density. [...] on 11/09/2021 at 07:53 Normal [facility] CBC AUTO DIFFon 11-01-2021 BASO # 0.1 103/ul Normal 0.0-0.1 [facility] Comment on above: Performed By: #### F T4 #### [facility] [address] [place] [address] Dr. Edil Gayle Basophils/100 WBC (Bld) 1.2 % Normal 0.2-2.0 [facility] Comment on above: Performed By: #### F T4 #### [facility] [address] [place] [address] Dr. Edil Gayle EO # 0.3 103/ul Normal 0.0-0.7 [facility] Comment on above: Performed By: #### F T4 #### [facility] [address] [place] [address] Dr. Edil Gayle Eosinophils/100 WBC (Bld) 2.7 % Normal 0.9-7.0 [facility] Comment on above: Performed By: #### F T4 #### [facility] [address] [place] [address] Dr. Edil Gayle Erythrocyte distribution width (RBC) [Ratio] 12.8 % Normal 11.0-15.0 [facility] Comment on above: Performed By: #### F T4 #### [facility] [address] [place] [address] Dr. Edil Gayle Hematocrit (Bld) [Volume fraction] 46.5 % Normal 36.0-48.0 [facility] Comment on above: Performed By: #### F T4 #### [facility] [address] [place] [address] Dr. Edil Gayle Hemoglobin (Bld) [Mass/Vol] 15.5 g/dL Normal 12.0-16.0 [facility] Comment on above: Performed By: #### F T4 #### [facility] [address] [place] [address] Dr. Edil Gayle IG # 0.02 10e3/ul Normal 0.00-0.03 [facility] Comment on above: Performed By: #### F T4 #### [facility] [address] [place] [address] Dr. Edil Gayle IG % 0.2 % Normal 0.0-0.5 [facility] Comment on above: Performed By: #### F T4 #### [facility] [address] [place] [address] Dr. Edil Gayle LYMPH # 2.1 103/ul Normal 1.2-3.8 [facility] Comment on above: Performed By: #### F T4 #### [facility] [address] [place] [address] Dr. Edil Gayle Lymphocytes/100 WBC (Bld) 20.4 % Critically low 20.5-60.0 [facility] Comment on above: Performed By: #### F T4 #### [facility] [address] [place] [address] Dr. Edil Gayle MANUAL DIFF REQ NO Normal [facility] Comment on above: Performed By: #### F T4 #### [facility] [address] [place] [address] Dr. Edil Gayle MCH (RBC) [Entitic mass] 30.3 pg Normal 26.7-34.0 [facility] Comment on above: Performed By: #### F T4 #### [facility] [address] [place] [address] Dr. Edil Gayle MCHC (RBC) [Mass/Vol] 33.3 g/dL Normal 29.9-35.2 [facility] Comment on above: Performed By: #### F T4 #### [facility] [address] [place] [address] Dr. Edil Gayle MCV (RBC) [Entitic vol] 90.8 fL Normal 81.0-99.0 [facility] Comment on above: Performed By: #### F T4 #### [facility] [address] [place] [address] Dr. Edil Gayle MONO # 0.5 103/ul Normal 0.3-0.8 [facility] Comment on above: Performed By: #### F T4 #### [facility] [address] [place] [address] Dr. Edil Gayle Monocytes/100 WBC (Bld) 5.2 % Normal 1.7-12.0 [facility] Comment on above: Performed By: #### F T4 #### [facility] [address] [place] [address] Dr. Edil Gayle NEUT # 7.3 103/ul Critically high 1.4-6.5 [facility] Comment on above: Performed By: #### F T4 #### [facility] [address] [place] [address] Dr. Edil Gayle Neutrophils/100 WBC (Bld) 70.3 % Normal 43.0-75.0 [facility] Comment on above: Performed By: #### F T4 #### [facility] [address] [place] [address] Dr. Edil Gayle Platelet mean volume (Bld) [Entitic vol] 8.8 fL Critically low 9.5-13.5 [facility] Comment on above: Performed By: #### F T4 #### [facility] [address] [place] [address] Dr. Edil Gayle PLT 294 103/ul Normal 150-450 [facility] Comment on above: Performed By: #### F T4 #### [facility] [address] [place] [address] Dr. Edil Gayle RBC 5.12 106/ul Normal 4.20-5.40 [facility] Comment on above: Performed By: #### F T4 #### [facility] [address] [place] [address] Dr. Edil Gayle WBC 10.3 103/ul Normal 4.0-11.0 [facility] Comment on above: Performed By: #### F T4 #### [facility] [address] [place] [address] [address] Edil Gayle FREE T4on 11-01-2021 Free T4 [Mass/Vol] 0.88 ng/dL Normal 0.76-1.46 [facility] Comment on above: Performed By: #### F T4 #### [facility] [address] [place] [address] Dr. Edil Gayle GLYCOHEMOGLOBIN A1Con 2021 ADA RECOMMENDATION SEE BELOW Normal [facility] Comment on above: Result Comment: ADA RECOMMENDED LIMIT 4.0 - 6.0 ADA THERAPEUTIC TARGET < 7.0 ACTION SUGGESTED > 7.0 Performed By: #### A 1C #### [facility] [address] [place] [address] Dr. Edil Gayle Glucose [Mass/Vol] 108 mg/dL Normal [facility] Comment on above: Performed By: #### A 1C #### [facility] [address] [place] [address] Dr. Edil Gayle HbA1c (Bld) [Mass fraction] 5.4 % Normal 4.5-6.2 [facility] Comment on above: Performed By: #### A 1C #### [facility] [address] [place] [address] Dr. Edil Gayle LIPID PROFILEon 11-01-2021 CHOL-HDL RATIO NORM SEE BELOW Normal [facility] Comment on above: Result Comment: 3.3 - 4.4 LOW RISK 4.4 - 7.1 AVERAGE RISK 7.1 - 11.0 MODERATE RISK >11.0 HIGH RISK Performed By: #### T SH, CMP, LIPID #### [facility] [address] [place] [address] Dr. Edil Gayle Cholesterol [Mass/Vol] 246 mg/dL Critically high <=200 [facility] Comment on above: Performed By: #### T SH, CMP, LIPID #### [facility] [address] [place] [address] Dr. Edil Gayle Cholesterol in HDL [Mass/Vol] 48 mg/dL Normal 40-60 [facility] Comment on above: Performed By: #### T SH, CMP, LIPID #### [facility] [address] [place] [address] [address] Edil Gayle Cholesterol in LDL [Mass/Vol] 172.6 mg/dL Normal [facility] Comment on above: Performed By: #### T SH, CMP, LIPID #### [facility] [address] [place] [address] [address] Edil Gayle Cholesterol.total/C holesterol in HDL [Mass ratio] 5.1 {ratio} Normal [facility] Comment on above: Performed By: #### T SH, CMP, LIPID #### [facility] [address] [place] [address] Dr. Edil Gayle HDL NORMAL > or = 60 mg/dl - LO W CARDIOVASCULAR RISK <40 mg/dl - HIGH CARDIOVASCULAR RISK Normal [facility] Comment on above: Performed By: #### T SH, CMP, LIPID #### [facility] [address] [place] [address] Dr. Edil Gayle LDL CALC NORMAL SEE BELOW Normal [facility] Comment on above: Result Comment: <100 mg/dl OPTIMAL 100 - 129 mg/dl NEAR OR ABOVE OPTIMAL 130 - 159 mg/dl BORDERLINE HIGH 160 - 189 mg/dl HIGH >190 mg/dl VERY HIGH Performed By: #### T SH, CMP, LIPID #### [facility] [address] [place] [address] [address] Edil Gayle Triglyceride [Mass/Vol] 127 mg/dL Normal <=150 [facility] Comment on above: Performed By: #### T SH, CMP, LIPID #### [facility] [address] [place] [address] Dr. Edil Gayle VLDL CALC 25.4 mg/dL Normal [facility] Comment on above: Performed By: #### T SH, CMP, LIPID #### [facility] [address] [place] [address] [address] Edil Gayle PROF 14(COMP METB)on 022 Albumin [Mass/Vol] 3.6 g/dL Normal 3.4-5.0 [facility] Comment on above: Performed By: #### T SH, CMP, LIPID #### [facility] [address] [place] [address] [address] Edil Gayle Albumin/Globulin [Mass ratio] 1.0 {ratio} Normal [facility] Comment on above: Performed By: #### T SH, CMP, LIPID #### [facility] [address] [place] [address] [address] Edil Gayle ALP [Catalytic activity/Vol] 109 U/L Normal 46-116 [facility] Comment on above: Performed By: #### T SH, CMP, LIPID #### [facility] [address] [place] [address] [address] Edil Gayle ALT [Catalytic activity/Vol] 21 U/L Normal 14-59 [facility] Comment on above: Performed By: #### T SH, CMP, LIPID #### [facility] [address] [place] [address] [address] Edil Gayle Anion gap [Moles/Vol] 10.9 mmol/L Normal [facility] Comment on above: Performed By: #### T SH, CMP, LIPID #### [facility] [address] [place] [address] [address] Edil Gayle AST [Catalytic activity/Vol] 15 U/L Normal 15-37 [facility] Comment on above: Performed By: #### T SH, CMP, LIPID #### [facility] [address] [address] [address] Edil Gayle Bilirubin [Mass/Vol] 0.8 mg/dL Normal 0.2-1.0 [facility] Comment on above: Performed By: #### T SH, CMP, LIPID #### [facility] [address] [place] [address] [address] Edil Gayle Calcium [Mass/Vol] 9.3 mg/dL Normal 8.5-10.1 [facility] Comment on above: Performed By: #### T SH, CMP, LIPID #### [facility] [address] [address] [address] Edil Gayle Chloride [Moles/Vol] 104 mmol/L Normal 98-107 [facility] Comment on above: Performed By: #### T SH, CMP, LIPID #### [facility] [address] [place] [address] Dr. Edil Gayle CO2 [Moles/Vol] 30.6 mmol/L Normal 21.0-32.0 [facility] Comment on above: Performed By: #### T SH, CMP, LIPID #### [facility] [address] [place] [address] Dr. Edil Gayle Creatinine [Mass/Vol] 0.77 mg/dL Normal 0.55-1.02 [facility] Comment on above: Performed By: #### T SH, CMP, LIPID #### [facility] [address] [place] [address] Dr. Edil Gayle EGFR-AF AZERBAIJANI >60 Normal >=60 [facility] Comment on above: Performed By: #### T SH, CMP, LIPID #### [facility] [address] [place] [address] Dr. Edil Gayle EGFR-NON AF AZERBAIJANI >60 Normal >=60 [facility] Comment on above: Performed By: #### T SH, CMP, LIPID #### [facility] [address] [place] [address] Dr. Edil Gayle Globulin (S) [Mass/Vol] 3.7 g/dL Normal [facility] Comment on above: Performed By: #### T SH, CMP, LIPID #### [facility] [address] [place] [address] Dr. Edil Gayle Glucose [Mass/Vol] 106 mg/dL Normal 74-106 [facility] Comment on above: Performed By: #### T SH, CMP, LIPID #### [facility] [address] [place] [address] Dr. Edil Gayle Potassium [Moles/Vol] 4.5 mmol/L Normal 3.5-5.1 [facility] Comment on above: Performed By: #### T SH, CMP, LIPID #### [facility] [address] [place] [address] Dr. Edil Gayle Protein [Mass/Vol] 7.3 g/dL Normal 6.4-8.2 [facility] Comment on above: Performed By: #### T ANA MARIA, CMP, LIPID #### [facility] [address] [place] [address] Dr. Edil Gayle Sodium [Moles/Vol] 141 mmol/L Normal 136-145 [facility] Comment on above: Performed By: #### T ANA MARIA CMP, LIPID #### [facility] [address] [place] [address] Dr. Edil Gayle Urea nitrogen [Mass/Vol] 11.0 mg/dL Normal 7.0-18.0 [facility] Comment on above: Performed By: #### T ANA MARIA CMP, LIPID #### [facility] [address] [place] [address] Dr. Eidl Gayle Urea nitrogen/Creatinine [Mass ratio] 14.3 mg/mg Normal [facility] Comment on above: Performed By: #### T ANA MARIA, CMP, LIPID #### [facility] [address] [place] [address] Dr. Edil Gayle TSHon 11-01-2021 TSH 2.620 uIU/mL Normal 0.358-3.740 [facility] Comment on above: Performed By: #### T ANA MARIA CMP, LIPID #### [facility] [address] [place] [address] Dr. Edil Gayle CBC AUTO DIFFon 07-28-2021 BASO # 0.1 103/ul Normal 0.0-0.1 [facility] Comment on above: Performed By: #### C BC #### [facility] [address] [place] [address] Dr. Edil Gayle Basophils/100 WBC (Bld) 1.0 % Normal 0.2-2.0 [facility] Comment on above: Performed By: #### C BC #### [facility] [address] [place] [address] Dr. Edil Gayle EO # 0.3 103/ul Normal 0.0-0.7 [facility] Comment on above: Performed By: #### C BC #### [facility] [address] [place] [address] Dr. Edil Gayle Eosinophils/100 WBC (Bld) 2.9 % Normal 0.9-7.0 [facility] Comment on above: Performed By: #### C BC #### [facility] [address] [place] [address] Dr. Edil Gayle Erythrocyte distribution width (RBC) [Ratio] 13.0 % Normal 11.0-15.0 [facility] Comment on above: Performed By: #### C BC #### [facility] [address] [place] [address] Dr. Edil Gayle Hematocrit (Bld) [Volume fraction] 46.3 % Normal 36.0-48.0 [facility] Comment on above: Performed By: #### C BC #### [facility] [address] [place] [address] Dr. Edil Gayle Hemoglobin (Bld) [Mass/Vol] 15.4 g/dL Normal 12.0-16.0 [facility] Comment on above: Performed By: #### C BC #### [facility] [address] [place] [address] Dr. Edil Gayle IG # 0.03 10e3/ul Normal 0.00-0.03 [facility] Comment on above: Performed By: #### C BC #### [facility] [address] [place] [address] Dr. Edil Gayle IG % 0.3 % Normal 0.0-0.5 [facility] Comment on above: Performed By: #### C BC #### [facility] [address] [place] [address] Dr. Edil Gayle LYMPH # 2.4 103/ul Normal 1.2-3.8 [facility] Comment on above: Performed By: #### C BC #### [facility] [address] [place] [address] Dr. Edil Gayle Lymphocytes/100 WBC (Bld) 22.4 % Normal 20.5-60.0 [facility] Comment on above: Performed By: #### C BC #### [facility] [address] [place] [address] Dr. Edil Gayle MANUAL DIFF REQ NO Normal [facility] Comment on above: Performed By: #### C BC #### [facility] [address] [place] [address] Dr. Edil Gayle MCH (RBC) [Entitic mass] 30.9 pg Normal 26.7-34.0 [facility] Comment on above: Performed By: #### C BC #### [facility] [address] [place] [address] Dr. Edil Gayle MCHC (RBC) [Mass/Vol] 33.3 g/dL Normal 29.9-35.2 [facility] Comment on above: Performed By: #### C BC #### [facility] [address] [place] [address] Dr. Edil Gayle MCV (RBC) [Entitic vol] 93.0 fL Normal 81.0-99.0 [facility] Comment on above: Performed By: #### C BC #### [facility] [address] [place] [address] Dr. Edil Gayle MONO # 0.7 103/ul Normal 0.3-0.8 [facility] Comment on above: Performed By: #### C BC #### [facility] [address] [place] [address] Dr. Edil Gayle Monocytes/100 WBC (Bld) 6.9 % Normal 1.7-12.0 [facility] Comment on above: Performed By: #### C BC #### [facility] [address] [place] [address] Dr. Edil Gayle NEUT # 7.1 103/ul Critically high 1.4-6.5 [facility] Comment on above: Performed By: #### C BC #### [facility] [address] [place] [address] Dr. Edil Gayle Neutrophils/100 WBC (Bld) 66.5 % Normal 43.0-75.0 [facility] Comment on above: Performed By: #### C BC #### [facility] [address] [place] [address] Dr. Edil Gayle Platelet mean volume (Bld) [Entitic vol] 9.4 fL Critically low 9.5-13.5 [facility] Comment on above: Performed By: #### C BC #### [facility] [address] [place] [address] Dr. Edil Gayle PLT 247 103/ul Normal 150-450 [facility] Comment on above: Performed By: #### C BC #### [facility] [address] [address] [address] Edil Gayle RBC 4.98 106/ul Normal 4.20-5.40 [facility] Comment on above: Performed By: #### C BC #### [facility] [address] [place] [address] Dr. Edil Gayle WBC 10.7 103/ul Normal 4.0-11.0 [facility] Comment on above: Performed By: #### C BC #### [facility] [address] [place] [address] ABD/PELV W CONon [...] HENRY Date: 2021-07-28 11:03 Normal [facility] ER URINE PROFILEon 2 Bilirubin Ql (U) Negative Normal NEGATIVE [facility] Comment on above: Performed By: #### E RUR #### [facility] [address] [place] [address] Dr. Edil Gayle Clarity (U) CLEAR Normal CLEAR [facility] Comment on above: Performed By: #### E RUR #### [facility] [address] [place] [address] Dr. Edil Gayle Color (U) YELLOW Normal YELLOW [facility] Comment on above: Performed By: #### E RUR #### [facility] [address] [place] [address] Dr. Edil NAQVI A micrscopic examination will be performed if indicated. Normal [facility] Comment on above: Performed By: #### E RUR #### [facility] [address] [place] [address] Dr. Edil Gayle Glucose Ql (U) Negative Normal NEGATIVE [facility] Comment on above: Performed By: #### E RUR #### [facility] [address] [place] [address] Dr. Edil Gayle Hemoglobin Ql (U) Negative Normal NEGATIVE [facility] Comment on above: Performed By: #### E RUR #### [facility] [address] [place] [address] Dr. Edil Gayle Ketones Ql (U) Negative Normal NEGATIVE [facility] Comment on above: Performed By: #### E RUR #### [facility] [address] [place] [address] Dr. Edil Gayle LEUKOCYTES Negative Normal NEGATIVE [facility] Comment on above: Performed By: #### E RUR #### [facility] [address] [place] [address] Dr. Edil Gayle Nitrite Ql (U) Negative Normal NEGATIVE [facility] Comment on above: Performed By: #### E RUR #### [facility] [address] [place] [address] Dr. Edil Gayle pH (U) 6.0 [pH] Normal 5-9 [facility] Comment on above: Performed By: #### E RUR #### [facility] Laboratory [address] [place] [address] Dr. Edil Gayle SPEC GRAVITY 1.030 Abnormal 1.005-<=1.02 5 [facility] Comment on above: Performed By: #### E RUR #### [facility] Laboratory [address] [place] [address] Dr. Edil Gayle UA PROTEIN Negative Normal NEGATIVE/ TRACE [facility] Comment on above: Performed By: #### E RUR #### [facility] Laboratory [address] [place] [address] Dr. Edil Gayle UR MICRO IND NOT INDICATED Normal [facility] Comment on above: Performed By: #### E RUR #### [facility] Laboratory [address] [place] [address] Dr. Edil Gayle Urobilinogen Qn (U) 0.2 {Tee'U}/dL Normal 0.2 - 1. 0 [facility] Comment on above: Performed By: #### E RUR #### [facility] Laboratory [address] [place] [address] Dr. Edil Gayle PROF CHEM 8 (BAS METB)on Anion gap [Moles/Vol] 9.8 mmol/L Normal [facility] Comment on above: Performed By: #### F T4 #### [facility] Laboratory [address] [place] [address] Dr. Edil Gayle Calcium [Mass/Vol] 8.4 mg/dL Critically low 8.5-10.1 [facility] Comment on above: Performed By: #### F T4 #### [facility] Laboratory [address] [place] [address] Dr. Edil Gayle Chloride [Moles/Vol] 106 mmol/L Normal 98-107 [facility] Comment on above: Performed By: #### F T4 #### [facility] Laboratory [address] [place] [address] Dr. Edil Gayle CO2 [Moles/Vol] 29.1 mmol/L Normal 21.0-32.0 [facility] Comment on above: Performed By: #### F T4 #### [facility] Laboratory [address] [place] [address] Dr. Edil Gayle Creatinine [Mass/Vol] 0.78 mg/dL Normal 0.55-1.02 [facility] Comment on above: Performed By: #### F T4 #### [facility] Laboratory [address] [address] [address] Edil Gayle EGFR-AF AZERBAIJANI >60 Normal >=60 [facility] Comment on above: Performed By: #### F T4 #### [facility] Laboratory [address] [place] [address] Dr. Edil Gayle EGFR-NON AF AZERBAIJANI >60 Normal >=60 [facility] Comment on above: Performed By: #### F T4 #### [facility] Laboratory [address] [place] [address] Dr. Edil Gayle Glucose [Mass/Vol] 89 mg/dL Normal 74-106 [facility] Comment on above: Performed By: #### F T4 #### [facility] Laboratory [address] [address] [address] Edil Gayle Potassium [Moles/Vol] 3.9 mmol/L Normal 3.5-5.1 [facility] Comment on above: Performed By: #### F T4 #### [facility] Laboratory [address] [place] [address] Dr. Edil Gayle Sodium [Moles/Vol] 141 mmol/L Normal 136-145 [facility] Comment on above: Performed By: #### F T4 #### [facility] Laboratory [address] [place] [address] Dr. Edil Gayle Urea nitrogen [Mass/Vol] 12.0 mg/dL Normal 7.0-18.0 [facility] Comment on above: Performed By: #### F T4 #### [facility] Laboratory [address] [place] [address] Dr. Edil Gayle Urea nitrogen/Creatinine [Mass ratio] 15.4 mg/mg Normal [facility] Comment on above: Performed By: #### F T4 #### [facility] Laboratory [address] [place] [address] Dr. Edil Ray 11-22-2020 RAFIA PATTERN SPECKLED Normal [facility] Comment on above: Result Comment: The [...] authority. Performed By: #### 1 0196 #### [facility] [address] RAFIA SCREEN 1:80 Abnormal <1:40,1:40 The [facility] Comment on above: Result Comment: Test performed using JOSE C IFA RAFIA Hep-2 Test, a pre-standardized assay designed for the qualitative and semi-quantitative detection of antinuclear antibodies. Performed By: #### 1 0196 #### [facility] [address] C REACTIVE PROTEINon 021 CRP [Mass/Vol] 1.9 mg/L Normal 0.0-7.0 The [facility] Comment on above: Performed By: #### 9 9744, [id number], 43893 #### [facility] [address] CBC W/DIFFon 11-22-2020 ABS IMM GRANS 0.0 10*3/uL Normal 0.0-0.2 The [facility] Comment on above: Performed By: #### 5 0103, 06763 #### [facility] [address] [place] [address], [facility] ABS NEUTROPHILS 10.1 10*3/uL High 1.6-7.6 [facility] Comment on above: Performed By: #### 5 0103, 30930 #### [facility] [address] [place] [address], [place] Basophils (Bld) [#/Vol] 0.1 10*3/uL Normal 0.0-0.2 The [facility] Comment on above: Performed By: #### 5 102, 60345 #### [facility] [address] [place] [address], [facility] Basophils/100 WBC (Bld) 0.8 % Normal 0.0-1.0 The [facility] Comment on above: Performed By: #### 5 102, 49105 #### [facility] [address] [facility] [place] [address], [facility] Eosinophils (Bld) [#/Vol] 0.2 10*3/uL Normal 0.0-0.5 The [facility] Comment on above: Performed By: #### 102, 45861 #### [facility] [address] [facility] [place] [address], [facility] Eosinophils/100 WBC (Bld) 1.2 % Normal 0.0-6.0 The [facility] Comment on above: Performed By: #### 5 102, 32921 #### [facility] [address] Erythrocyte distribution width (RBC) [Ratio] 13.2 % Normal 11.5-15.0 The [facility] Comment on above: Performed By: #### 5 102, 26261 #### [facility] [address] [facility]. [address] Hematocrit (Bld) [Volume fraction] 47.8 % High 36.0-45.0 The [facility] Comment on above: Performed By: #### 5 102, 69093 #### [facility] [address] [facility] [place] [address], [facility] Hemoglobin (Bld) [Mass/Vol] 16.1 g/dL High 12.0-15.0 The [facility] Comment on above: Performed By: #### 5 102, 13934 #### [facility] [address] [place] [address], [facility] IMMATURE GRANS 0.3 % Normal 0.0-1.0 The [facility] Comment on above: Performed By: #### 5 102, 35927 #### [facility] [address] [place] [address], [facility] Lymphocytes (Bld) [#/Vol] 2.3 10*3/uL Normal 1.2-4.0 The [facility] Comment on above: Performed By: #### 102, 14806 #### [facility] [address] [place] [address], [facility] Lymphocytes/100 WBC (Bld) 17.1 % Low 20.0-45.0 The [facility] Comment on above: Performed By: #### 102, 01082 #### [facility] [address] [facility]. [address] MCH (RBC) [Entitic mass] 30.8 pg Normal 27.0-33.0 The [facility] Comment on above: Performed By: #### 5 102, 12322 #### [facility] [address] [facility] [place] [address], [facility] MCHC (RBC) [Mass/Vol] 33.7 g/dL Normal 32.0-35.0 The [facility] Comment on above: Performed By: #### 102, 54655 #### [facility] [address] [facility] [place] [address], [facility] MCV (RBC) [Entitic vol] 91.4 fL Normal 82.0-98.0 The [facility] Comment on above: Performed By: #### 102, 38732 #### [facility] [address] [facility] [address], [facility] Monocytes (Bld) [#/Vol] 0.7 10*3/uL Normal 0.1-1.0 The [facility] Comment on above: Performed By: #### 5 102, 85186 #### [facility] [address] [place] [address], [facility] MONOS 5.0 % Normal 5.0-12.0 [facility] Comment on above: Performed By: #### 5 102, 28785 #### [facility] [address] [place] [id number], [facility] Neutrophils/100 WBC (Bld) 75.6 % High 40.0-72.0 The [facility] Comment on above: Performed By: #### 5 102, 10087 #### [facility] [address] [facility] [place] [place] [address], [facility] Nucleated RBC/100 WBC (Bld) [Ratio] 0 % Normal 0-0 The [facility] Comment on above: Performed By: #### 5 102, 48311 #### [facility] [address] [facility] [place] [place] [address], [facility] PLAT CNT 303 10*3/uL Normal 150-400 [facility] Comment on above: Performed By: #### 5 102, 50231 #### [facility] [address] [facility] [place] [address], [facility] RBC (Bld) [#/Vol] 5.23 10*6/uL High 3.80-5.00 [facility] Comment on above: Performed By: #### 5 010, 88055 #### [facility] [address] [facility] [place] [address], [facility] WBC (Bld) [#/Vol] 13.31 10*3/uL High 4.00-10.60 [facility] Comment on above: Performed By: #### 5 102, 26714 #### [facility] [address] [facility] [place] [address], [facility] CYCLIC CITRULLINATED PEPTIDE [place] [id number] 11-22-2020 CYCLIC CIT PEP 4 Units Normal 0-19 The [facility] Comment on above: Result Comment: INTE [...] be monitored and testing repeated. Performed By: [employer] [address] [place] [id number] Repair Cameraman: Olga Duval MD HAND LEFT 3 [facility] 11-22-2020 HAND LEFT 3 [facility] Department of Radiology [address] [place] [address] ===== Patient Name: ARACELI PÉREZ : 1980 Sex: F Age: Race: White Pt. Location: [facility] Patient Status: D Ordered Date: 11/22/2020 10:50:00 AM Completed Date: 11/22/2020 10:54 AM Requesting Provider: DANYA ROTHMAN Attending Provider: DANYA ROTHMAN Report Copy To: Signs & Symptoms: M25.50 Pain in unspecified joint I10 History: Lissette Comments: Evaluate Exam: HAND LEFT 3 S ===== HAND LEFT 3 VWS 11/22/2020 10:54 AM [...] osteoarthritis. Electronically signed: Neftali Ralph. Transcribed by: [email or web address], User Resident: Electronically Signed by: NEFTALI RALPH @ 11/23/2020 09:30 AM Normal The [facility] Comment on above: Order Comment: Evalu ate HAND RIGHT 3 Son HAND RIGHT 3 S [facility] Department of Radiology [address] [place] [id number] ===== Patient Name: ARACELI PÉREZ : 1980 Sex: F Age: Race: White Pt. Location: [facility] Patient Status: D Ordered Date: 11/22/2020 10:50:00 [...] report. Electronically signed: Neftali Ralph. Transcribed by: [email or web address], User Resident: JOSIANE LAWRENCE Electronically Signed by: NEFTALI RALPH @ 11/23/2020 12:29 PM I personally read this/these film(s) with this resident Normal The [facility] Comment on above: Order Comment: Evalu ate PILAR Alfonso 11-22-2020 IgA [Mass/Vol] 410 mg/dL Normal 60-413 The [facility] Comment on above: Performed By: #### 9 9744, 94515, 56966 #### [facility] [address] [place] [address], [place] IgG [Mass/Vol] 908 mg/dL Normal 591-1540 [facility] Comment on above: Performed By: #### 9 9744, 76597, 14366 #### [facility] [address] [place] [address], [place] IgM [Mass/Vol] 58 mg/dL Normal 54-285 [facility] Comment on above: Performed By: #### 9 9744, 50325, 16397 #### [facility] [address] RHEUMATOID FACTOR SERUMon RA <20 Normal 0-20 The [facility] Comment on above: Performed By: #### 9 9744, 02112, 35081 #### [facility] [address] SEDIMENTATION RATEon 021 SED RATE 4 mm/hr Normal 0-20 The [facility] Comment on above: Performed By: #### 5 0103, 05364 #### [facility] [address] t cell subset analysison CD3 % 86.24 % Normal 65.00-90.00 [facility] Comment on above: Order Comment: This test was developed and its performance characteristics determined by the [facility]. It has not been cleared or approved by the U.S. Food and Drug Administration. Performed By: #### 9 0116 #### [facility] [address] CD3 ABSOLUTE 1963 cells/mm3 Normal 760-2130 The [facility] Comment on above: Order Comment: This test was developed and its performance characteristics determined by the [facility]. It has not been cleared or approved by the U.S. Food and Drug Administration. Performed By: #### 9 0116 #### [facility] [address] [place] [address], [facility] CD4 % 67.10 % Normal 40.00-70.00 [facility] Comment on above: Order Comment: This test was developed and its performance characteristics determined by the [facility]. It has not been cleared or approved by the U.S. Food and Drug Administration. Performed By: #### 9 0116 #### [facility] [address] CD4 ABSOLUTE 1527 cells/mm3 High 430-1185 [facility] Comment on above: Order Comment: This test was developed and its performance characteristics determined by the [facility]. It has not been cleared or approved by the U.S. Food and Drug Administration. Performed By: #### 9 0116 #### [facility] [address] CD4:CD8 RATIO 3.79 Normal 1.00-4.00 [facility] Comment on above: Order Comment: This test was developed and its performance characteristics determined by the [facility]. It has not been cleared or approved by the U.S. Food and Drug Administration. Performed By: #### 9 0116 #### [facility] [address] CD8 % 17.70 % Normal 15.00-40.00 [facility] Comment on above: Order Comment: This test was developed and its performance characteristics determined by the [facility]. It has not been cleared or approved by the U.S. Food and Drug Administration. Performed By: #### 9 0116 #### [facility] [address] CD8 ABSOLUTE 403 cells/mm3 Normal 180-865 The [facility] Comment on above: Order Comment: This test was developed and its performance characteristics determined by the [facility]. It has not been cleared or approved by the U.S. Food and Drug Administration. Performed By: #### 9 0116 #### [address] Vital Signs Date Time Vital Sign Value Performing Clinician Facility 12-25-2023 12:14-0500 Body height 162.6 cm Pm 1 [facility] 12-25-2023 12:14-0500 Body mass index (BMI) [Ratio] 46.35 kg/m2 [facility] 12-25-2023 12:14-0500 Body weight 122.47 kg Pmh 1 [facility] 12-05-2023 09:41-0400 Body mass index (BMI) [Ratio] 42.89 kg/m2 Yu Guerrier [employer] Work Phone: [facility] 12-05-2023 09:41-0400 Body weight 113.4 kg Yu Guerrier [employer]PA[employer] Work Phone: [facility] 12-05-2023 09:41-0400 Diastolic blood pressure 77 mm[Hg] Yu Guerrier [employer]PA[employer] Work Phone: [facility] 12-05-2023 09:41-0400 Heart rate 83 /min Yu Guerrier [employer] REPA[employer] Work Phone: [facility] 12-05-2023 09:41-0400 Systolic blood pressure 125 mm[Hg] Yu Guerrier [employer]PA[employer] Work Phone: [facility] 06-01-2023 10:32-0400 Body height 162.6 cm Irwin Rodriguez MD Work Phone: [facility] 06-01-2023 10:32-0400 Body mass index (BMI) [Ratio] 43.06 kg/m2 Irwin Rodriguez MD Work Phone: [facility] 06-01-2023 10:32-0400 Body temperature 98.29 [degF] Irwin Rodriguez MD Work Phone: [facility] 06-01-2023 10:32-0400 Body weight 113.85 kg Irwin Rodriguez MD Work Phone: [facility] 06-01-2023 10:32-0400 Diastolic blood pressure 101 mm[Hg] Irwin Rodriguez MD Work Phone: [facility] 06-01-2023 10:32-0400 Heart rate 78 /min Irwin Rodriguez MD Work Phone: [facility] 06-01-2023 10:32-0400 Respiratory rate 18 /min Irwin Rodriguez MD Work Phone: [facility] [employer] [facility] 06-01-2023 10:32-0400 SaO2% (BldA) [Mass fraction] 100 % Irwin Rodriguez MD Work Phone: [facility] [employer] [facility] 06-01-2023 10:32-0400 Systolic blood pressure 145 mm[Hg] Irwin Rodriguez MD Work Phone: [facility] 04-25-2023 12:38-0400 Body height 162.6 cm Db Whitten MD Work Phone: [facility] [employer] [facility] 04-25-2023 12:38-0400 Body mass index (BMI) [Ratio] 42.05 kg/m2 Db Whitten MD Work Phone: [facility] [employer] [facility] 04-25-2023 12:38-0400 Body weight 111.13 kg Db Whitten MD Work Phone: [facility] [employer] [facility] 04-25-2023 12:38-0400 Diastolic blood pressure 99 mm[Hg] Db Whitten MD Work Phone: [facility] [employer] [facility] 04-25-2023 12:38-0400 Heart rate 93 /min Db Whitten MD Work Phone: [facility] [employer] [facility] 04-25-2023 12:38-0400 Systolic blood pressure 146 mm[Hg] Db Whitten MD Work Phone: [facility] [employer] [facility] 03-16-2023 10:58-0500 Body height 162.6 cm Pmh 1 [facility] 03-16-2023 10:58-0500 Body mass index (BMI) [Ratio] 42.05 kg/m2 Pmh [address] [facility] [employer] [facility] 03-16-2023 10:58-0500 Body weight 111.13 kg Pmh 1 [facility] 03-01-2023 14:45-0500 Body height 162.56 cm Kisha Barkley Other [employer] Other 03-01-2023 14:45-0500 Body mass index (BMI) [Ratio] 42.05 kg/m2 Kisha Barkley Other [employer] Other 03-01-2023 14:45-0500 Body temperature 97.5 [degF] Kisha Filippo Other [employer] Other 03-01-2023 14:45-0500 Body weight 111.13 kg Kisha Barkley Other [employer] Other 03-01-2023 14:45-0500 Respiratory rate 18 /min Kisha Barkley Other [employer] Other 03-01-2023 14:45-0500 SaO2% (BldA) [Mass fraction] 99 % Kisha Barkley Other [employer] Other 10-26-2022 09:00-0400 Body height 162.56 cm Albaro Wilson Other [employer] Other 10-26-2022 09:00-0400 Body mass index (BMI) [Ratio] 43.25 kg/m2 Albaro Wilson Other [employer] Other 10-26-2022 09:00-0400 Body weight 114.31 kg Albaro Wilson Other [employer] Other 10-26-2022 09:00-0400 Diastolic blood pressure 80 mm[Hg] Albaro Wilson Other [employer] Other 10-26-2022 09:00-0400 Systolic blood pressure 122 mm[Hg] Albaro Wilson Other [employer] Other 09-12-2022 14:20-0400 Diastolic blood pressure 70 mm[Hg] [facility] 09-12-2022 14:20-0400 Heart rate 70 /min [facility] 09-12-2022 14:20-0400 Respiratory rate 16 /min [facility] 09-12-2022 14:20-0400 SaO2% (BldA) [Mass fraction] 97 % [facility] 09-12-2022 14:20-0400 Systolic blood pressure 131 mm[Hg] [facility] 09-12-2022 12:54-0400 Body height 162.56 cm [facility] 09-12-2022 12:54-0400 Body temperature 98.2 [degF] [facility] 09-12-2022 12:54-0400 Body weight 113.39 kg [facility] Encounters Encounter Date Encounter Type Care Provider Facility Start: 07-08-2024 End: 07-08-2024 ambulatory [facility] Start: 07-03-2024 End: 07-03-2024 ambulatory [facility] Start: 06-16-2024 End: 06-16-2024 Telephone encounter Christy Warner [facility] Neurology, A Department of [facility] Comment on above: Question appointment Start: 06-05-2024 ambulatory [facility] Start: 06-02-2024 End: 06-02-2024 Angela Williamson MD Work Phone: [facility] Start: 06-02-2024 End: 06-02-2024 Angela Williamson MD Work Phone: [facility] Start: 06-02-2024 End: 06-02-2024 Office outpatient new 20 minutes Chau Williamson MD Work Phone: [facility] Comment on above: Melanocytic nevus of face, other location (Primary Dx); Neoplasm of unspecified behavior of bone, soft tissue, and skin Start: 06-02-2024 End: 06-02-2024 ambulatory CHAU WILLIAMSON Not Available Start: 05-28-2024 End: 05-28-2024 ambulatory Greyson Lincoln Start: 05-15-2024 ambulatory MARISOL CANALES [facility] Start: 01-21-2024 End: 01-21-2024 ambulatory [facility] Start: 01-11-2024 End: 01-11-2024 Telephone encounter Fabiola Berman CMA [facility] General Surgery Start: 12-31-2023 End: 12-31-2023 Evaluation and management of inpatient DB ELIZABETH [facility] Start: 12-25-2023 End: 12-25-2023 ambulatory [facility] Pat Phone Call Provider 1 [facility] - Pre Admit Start: 12-25-2023 End: 12-25-2023 ambulatory BHUMI HELM [facility] Start: 12-05-2023 End: 12-05-2023 Patient encounter procedure Yu Walter Fareed [employer] Work Phone: [facility] General Surgery Comment on above: Encounter for screen ing colonoscopy (Primary Dx) Start: 12-05-2023 End: 12-05-2023 ambulatory [facility] Start: 11-20-2023 End: 11-20-2023 Telephone encounter Yu Guerrier [employer] Work Phone: [facility] General Surgery Start: 10-22-2023 End: 10-22-2023 ambulatory LASHAUN [facility] Start: 06-01-2023 End: 06-01-2023 Documentation procedure Osiris Colmenares [facility] - Medical Oncology Start: 06-01-2023 End: 06-01-2023 Office outpatient visit 15 minutes Irwin Rodriguez MD Work Phone: Anabel Colmenares [facility] - Medical On[facility] Comment on above: Factor 5 Leiden muta tion, heterozygous (CMS-HCC) (Primary Dx) Start: 04-25-2023 End: 04-25-2023 Office outpatient visit 15 minutes Db Whitten MD Work Phone: 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 Start: 03-16-2023 End: 03-16-2023 ambulatory [facility] Pat Phone Call Provider 1 [facility] - Pre Admit Start: 03-01-2023 End: 03-01-2023 ambulatory Kisha Barkley Other [employer] Other Start: 03-01-2023 Office outpatient visit 25 minutes Kisha Barkley [facility] Start: 10-26-2022 End: 10-26-2022 ambulatory Albaro Wilson Other [employer] Other Start: 10-26-2022 Office outpatient visit 15 minutes Albaro Wilson [facility] Start: 09-19-2022 End: 09-19-2022 ambulatory Albaro Wilson Other [employer] Other Start: 09-19-2022 Telephone encounter [facility] Start: 09-12-2022 End: 09-12-2022 ambulatory Siva You Facility:[facility] Start: 09-12-2022 End: 09-12-2022 Admission to same day surgery center [facility] [facility] Work Phone: Start: 09-12-2022 End: 09-12-2022 ambulatory NON STAFF [facility] Work Phone: Start: 06-07-2022 ambulatory SHAD SHAMMO Facility:H 1 Start: 04-21-2022 End: 04-22-2022 ambulatory SHAD SHAMMO Facility:H1 Start: 04-03-2022 End: 04-03-2022 ambulatory SHAD SHAMMO Facility:H1 Start: 01-31-2022 End: 02-01-2022 ambulatory LASHAUN ANDRE Facility:H1 Start: 01-10-2022 End: 01-11-[address] OMAR GUIDRY . Facility:H1 Start: 12-20-2021 End: 12-20-2021 ambulatory NON STAFF Facility:[facility] Start: 12-20-2021 End: 12-20-2021 ambulatory NON STAFF [facility] Work Phone: Start: 12-20-2021 End: 12-20-2021 Patient encounter procedure DO Ron Wallace Work Phone: [facility] [place] Start: 12-20-2021 End: 12-21-[address] OMAR GUIDRY . 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 Start: 09-12-2022 Esophagogastroduodenoscopy Start: 07-05-2022 Adult depression screening assessment [facility] Start: 07-19-2020 Mammography Chau Williamson MD Work Phone: Plan of Treatment Date Care Activity Detail Author Start: 12-30-2033 Screening for malignant neoplasm of colon [facility] Start: 12-30-2028 Screening for malignant neoplasm of colon Colonoscopy [facility] Start: 09-28-2028 DTaP,Tdap and Td Vaccines (2 - Td or Tdap) DTaP,Tdap and Td Vaccines (2 - Td or Tdap) [facility] Start: 12-30-2024 Adult BMI Screening Adult BMI Screening [facility] Start: 12-30-2024 Tobacco Screening Tobacco Screening [facility] Start: 12-24-2024 Adult BMI Screening Adult BMI Screening [facility] Start: 12-24-2024 Tobacco Screening Tobacco Screening [facility] Start: 12-04-2024 Adult BMI Screening Adult BMI Screening [facility] Start: 12-04-2024 Tobacco Screening Tobacco Screening [facility] Start: 10-06-2024 Influenza vaccination [facility] Start: 07-08-2024 End: 07-08-2024 Patient encounter procedure 07/08/2024 9:00 AM EDT Office Visit [facility] [place] [address] [place] [address] Freedom Hsu PA-C [address], [address] [place] [address] [facility] [place] Start: 07-03-2024 End: 07-03-2024 Patient encounter procedure [facility] Start: 06-02-2024 End: 06-02-2024 Patient encounter procedure 06/02/2024 10:20 AM EDT Office Visit [facility] [address] [place] [address] Chau Williamson MD [address] [place] [address] Arrived [facility] Comment on above: Arrived Start: 05-31-2024 Adult BMI Screening Adult BMI Screening [facility] Start: 04-24-2024 Adult BMI Screening Adult BMI Screening [facility] Start: 04-24-2024 Tobacco Screening Tobacco Screening [facility] Start: 03-19-2024 Tobacco Screening Tobacco Screening [facility] Start: 03-16-2024 Adult BMI Screening Adult BMI Screening [facility] Start: 01-02-2024 Tobacco Screening Tobacco Screening [facility] Start: 12-31-2023 End: 12-31-2023 Admission to same day surgery center [facility] Surgery Comment on above: COLONOSCOPY DIAGNOSTIC / SCREENING [4537 8 (CPT )] Start: 12-31-2023 End: 12-31-2023 Anesthesia consultation 12/31/2023 12:00 PM EST Anesthesia Event [facility] [address] [place] [phone] Derick Snyder, DO [address] [facility] [place] [address] [facility] Start: 12-31-2023 End: 12-31-2023 Colonoscopy flx dx w/collj spec when pfd [facility] Start: 12-31-2023 Subsequent hospital visit by physician [facility] Start: 12-17-2023 End: 12-17-2023 ambulatory 12/17/2023 3:40 PM EST Support Visit [facility] - Pre Admit [address] [place] [phone] [facility] - Pre Admit Start: 10-07-2023 Influenza vaccination Influenza Vaccine [facility] Start: 07-06-2023 Depression Screening Depression Screening [facility] Start: 06-01-2023 End: 06-01-2023 Patient encounter procedure 06/01/2023 10:30 AM EDT [facility] [address] [place] [phone] Irwin Rodriguez MD [facility] [address] [place] [address] [facility] [address] [facility] - Medical Oncology Start: 04-27-2023 End: 04-27-2023 Patient encounter procedure 04/27/2023 3:15 PM EDT Office Visit [facility] [address] [place] [phone] Irwin Rodriguez MD [address] [facility] [address] [place], [place] [id number] [facility] Start: 03-19-2023 End: 03-19-2023 Patient encounter procedure 03/19/2023 3:45 PM EST Office Visit [facility] [address] [place] [address] [address] [facility] [place] [phone] Db Whitten MD [address] [place] [address] [facility] Start: 03-19-2023 End: 03-19-2023 Admission to same day surgery center 03/19/2023 9:30 AM EST - 03/19/2023 10:00 AM EST Surgery [facility] [address] [place] [phone] Db Whitten MD [address] [place] [address] CYSTOSCOPY WITH BLADDER IRRIGATION AND U OF M BLADDER SOLUTION [89769 (CPT )] [facility] Comment on above: CYSTOSCOPY WITH BLADDER IRRIGATION AND [facility] OF M BLADDER SOLUTION [60520 (CPT )] Start: 03-19-2023 End: 03-19-2023 Cystourethroscopy [facility] Start: 03-19-2023 Subsequent hospital visit by physician 03/19/2023 9:30 AM EST Hospital Encounter [facility] [address] [place] [address] Db Whitten MD [address] [place] [address] [facility] Start: 10-06-2022 Influenza vaccination Influenza Vaccine [facility] Start: 09-12-2022 [facility] Start: 12-20-2021 MR Unspecified body region [facility] Start: 12-20-2021 MRI of head MR head/brain wo/w con [facility] Start: 07-19-2021 Screening for malignant neoplasm of breast Mammogram [facility] Start: 2008 Screening for malignant neoplasm of cervix [facility] Start: 09-05-1999 Screening for malignant neoplasm of cervix Pap Smear [facility] Start: 1996 Adult BMI Follow Up Plan Adult BMI Follow Up Plan [facility] Start: 1978 Screening for malignant neoplasm of colon [facility] Start: 1978 Tobacco Counseling Tobacco Counseling [facility] End: 12-04-2024 Colonoscopy Colonoscopy GI Routine Encounter for screening colonoscopy 1 Occurrences starting 12/05/2023 until 12/04/[address] [facility] Work Phone: Comment on above: 1 Occurrences starting 12/05/2023 until 12/04/2024 Dermatopathology exam Dermatopat hology exam Pathology and Cytology Timed Neoplasm of unspecified behavior of bone, soft tissue, and skin Release Upon Ordering for 1 Occurrences starting 06/02/2024 [facility] Work Phone: Comment on above: Release Upon Ordering for 1 Occurrences starting 06/02/2024 Patient Education Hiatal Hernia (DC) [facility] Work Phone: Immunizations Immunization Date Immunization Notes Care Provider Fa cility 09-28-2018 tetanus toxoid, redu moon diphtheria toxoid, and acellular pertussis vaccine, adsorbed [facility] 1 [facility] Payers Date Payer Category Payer Medicaid [id number] 2022 Medicaid [id number] 2021 Self-pay [id number] 1978 Unknown [id number] .16.84 0.1.063002.3.579.2.593 1978 Unknown [id number] .16.84 0.1.673707.3.579.2.593 1978 Unknown [id number] .16.84 0.1.783138.3.579.2.593 1978 Unknown [id number] ..[id number] 0.1.760120.3.579.2.593 1978 Unknown [id number] ..[id number] 0.1.877365.3.579.2.593 1978 Unknown [id number] ..[id number] 0.1.930184.3.579.2.593 1978 Unknown [id number] ..[id number] 0.1.289251.3.579.2.593 1978 Unknown [id number] .16.84 0.1.329417.3.579.2.593 1978 Unknown [id number] ..[id number] 0.1.702567.3.579.2.593 1978 Unknown [id number] ..[id number] 0.1.035519.3.579.2.593 1978 Unknown [id number] .16.84 0.1.173369.3.579.2.593 1978 Unknown [id number] .16.84 0.1.027484.3.579.2.593 1978 Unknown [id number] .16.84 0.1.538891.3.579.2.593 1978 Unknown [id number] .16.84 0.1.590931.3.579.2.1259 1978 Unknown [id number] .16. 840.1.603319.3.579.2.1286 1978 Unknown [id number] 2.16. 840.1.417563.3.579.2.1286 1978 Unknown [id number] 2.16. 840.1.695701.3.579.2.1286 1978 Unknown [id number] 2.16. 840.1.521538.3.579.2.1286 1978 Unknown [id number] 2.16.8 40.1.645158.3.579.2.1286 1978 Unknown [id number] 2.16.8 40.1.539031.3.579.2.1286 1978 Unknown [id number] 2.16. 840.1.052946.3.579.2.1286 1978 Unknown [id number] 2.16.8 40.1.214103.3.579.2.1286 1959 Medicaid [id number] Unknown [id number] 2.16.8 40.1.056747.3.579.2.531 Unknown [id number] 2.16.8 40.1.808736.3.579.2.531 Social History Date Type Detail Facility Tobacco smoking stat [facility] Unknown if ever smoked [facility] Work Phone: Start: 1980 Sex Assigned At Female F [facility] Start: 09-12-2022 Tobacco smoking stat [facility] Smoker (finding) [facility] Start: 03-18-2020 End: 07-05-2022 Sex Assigned At [facility] Start: 03-19-2023 End: 12-05-2023 Tobacco smoking status FLIS Smokes tobacco daily [facility] of tobacco use [facility] Start: 03-18-2020 End: 03-19-2023 Cigarettes smoked current (pack per day) - Reported 0.3 [facility] Start: 03-19-2023 End: 12-05-2023 Tobacco use and exposure Smokeless tobacco non-user [facility] Start: 04-25-2023 End: 01-01-2024 Alcoholic beverage intake Current non-drinker of alcohol (finding) [facility] How often to you hav e a drink containing alcohol? Never [facility] How many standard drinks containing alcohol do you have on a typical day? Patient does not drink [facility] Start: 06-21-2022 Tobacco Comment Has a patch an d down to 4 cig. Per day [facility] Start: 1980 Sex assigned at Not on file P [facility] Start: 09-10-2014 Sex Female (finding) [facility] Tobacco smoking stat [facility] Tobacco smoking consumption unknown [facility] Start: 05-21-2024 Gender identity Identifies as female gender (finding) [facility] Healthcare Medical Equipment Procedure Code Equipment Code Equipment Origin al Text Equipment Identifier Dates Graft Bn 5ml Yomi Puros Strl Lf - [id number] Start: 07-05-2022 Townsend Yasargil Titanium Aneurysm Clip [id number] Start: 07-05-2022 Cover Bur Hl 14m m Lp Tab Unv Neuro 2 Thk.5mm Ns Lf - [id number] Start: 07-05-2022 Cover Bur Hl Crn fcl 10mmx.5mm Lp Tab Strl Lf Disp - [id number] Start: 07-05-2022 Plate Bn 16mm 2 Hl Lp Unv Neuro Ii Crnmxf Ti Ns Lf 1.5mm Scr - [id number] Start: 07-05-2022 Screw Bn 4mm 1.5 mm Slf Drl Xpn Crnmxf Strl - [id number] Start: 07-05-2022 Goals Date Patient Goal [...] EVER BEEN SEEN BY A NEUROLOGIST BEFORE? Viticulture Teacher spoke to patient regarding new patient appointment for headaches. Patient stated during the conversation previously seen for aneurysm and had brain surgery two years ago. Please advise can patient be seen by Dr Henson in [place] for headaches or if she should be seen by Dr Bautista. Patient prefers [place] location . Patient can be reached at [phone]. Thanks so much Patient had aneurysm clipped in 2022 by [facility]. [place] to schedule for headaches. Viticulture Teacher spoke to patient regarding scheduling with Dr Henson in [place]. Patient was driving will call back into the office to schedule. documented in this encounter [facility] 06-16-2024 Telephone encounter Note Received new patient referral. Please call patient to schedule a new patient appointment for Frequent headaches IS THIS DUE TO AN ACCIDENT? IS THIS WORKER'S COMP? PLEASE VERIFY IF THIS IS WORKERS COMP AND DOCUMENT (We do not accept any new workers comp cases) WHAT INSURANCE? HAVE YOU EVER BEEN SEEN BY A NEUROLOGIST BEFORE? [facility] 06-16-2024 Telephone encounter Note Viticulture Teacher spoke to patient regarding new patient appointment for headaches. Patient stated during the conversation previously seen for aneurysm and had brain surgery two years ago. Please advise can patient be seen by Dr Henson in [place] for headaches or if she should be seen by Dr Bautista. Patient prefers [place] location . Patient can be reached at [phone]. Thanks so much [facility] 06-16-2024 Telephone encounter Note Patient had aneurysm clipped in 2022 by [facility]. Irineo to schedule for headaches. [facility] 06-16-2024 Telephone encounter Note Viticulture Teacher spoke to patient regarding scheduling with Dr Henson in [place]. Patient was driving will call back into the office to schedule. [facility] 06-02-2024 History of Present illness Narrative Images [...] TISSUE, AND SKIN (3) Vertex of Scalp Weiner pearly papule Lesion biopsy Type of biopsy: [...] pending biopsy results documented in this encounter [facility] 01-21-2024 Note [place] [facility] Subjective Araceli Pérez is a 43 [...] directed., Disp: 90 tablet, Rfl: 3 omega 9-zjj-xlj-fish oil 300-1,000 mg capsule,delayed release(DR/EC), , Disp: [...] function stable Chol (more content not included)... [facility] 01-11-2024 Miscellaneous Notes ----- Message from Dr. Db Elizabeth DO sent at 01/10/2024 7:23 AM EST ----- Please let patient know that she had a colon polyp which was precancerous and I recommend surveillance colonoscopy in 5 years unless problems. Thanks, Dr. Hough I gave the patient the results message from Dr Elizabeth. She stated complete understanding. documented in this encounter [facility] 01-11-2024 Telephone encounter Note ----- Message from Dr. Db Elizabeth DO sent at 01/10/2024 7:23 AM EST ----- Please let patient know that she had a colon polyp which was precancerous and I recommend surveillance colonoscopy in 5 years unless problems. Thanks, Dr. Hough [facility] 01-11-2024 Telephone encounter Note I gave the patient the results message from Dr Elizabeth. She stated complete understanding. [facility] 12-25-2023 Miscellaneous Notes Preoperative Education Checklist- General Surgery date: 12/31/23 Surgery time: 1200 Arrival time: 1000 1. Bring a photo ID and your insurance card with you the day of surgery. You will check in at the main lobby of the [facility]- registration desk is straight ahead as soon as you walk in. Tell them you are here for surgery. 2. If you have a Living Will/Durable Power of Executive Admin for Health Care that is not on [...] after you have bathed. 5. NO nail french/acrylic on at least one finger. If you are having a hand, wrist or foot surgery then all nail french and artificial/acrylic nails must be removed from [...] please call the Preadmission Testing office at [phone], Mon.-Fri. 7 a.m.-3 p.m. Leave a voicemail [...] taking 0 days prior to procedure omega 7-bqk-rlf-fish oil (FISH OIL) 300-1,000 mg capsule,delayed release(DR/EC) [...] prior to procedure documented in this encounter [facility] 12-25-2023 Nurse Note Preoperative Education Checklist- General Surgery date: 12/31/23 Surgery time: 1200 Arrival time: 1000 1. Bring a photo ID and your insurance card with you the day of surgery. You will check in at the main lobby of the [facility]- registration desk is straight ahead as soon as you walk in. Tell them you are here for surgery. 2. If you have a Living Will/Durable Power of Executive Admin for Health Care that is not on [...] after you have bathed. 5. NO nail french/acrylic on at least one finger. If you are having a hand, wrist or foot surgery then all nail french and artificial/acrylic nails must be removed from [...] please call the Preadmission Testing office at [phone], Mon.-Fri. 7 a.m.-3 p.m. Leave a voicemail [...] taking 0 days prior to procedure omega 9-arm-taj-fish oil (FISH OIL) 300-1,000 mg capsule,delayed release(DR/EC) [...] Stop taking 0 days prior to procedure [facility] 12-05-2023 History of Present illness Narrative [...] pain Acid reflux Arthritis Asthma Bleeding disorder ([facility]) Factor V(clotting disorder) per patient Cerebral aneurysm Clotting disorder ([facility]) Dental disease Upper dentures, lower partial Depression Dysphagia Endometriosis Factor 5 Leiden mutation, heterozygous ([facility]) Fibromyalgia, primary GERD (gastroesophageal reflux disease) Without esophagitis Hyperlipidemia Hypertension Injury of back Irregular menstruation Leaking of urine Memory loss Menopause Migraine headache Obesity Painful menstruation Pelvic pain Pneumonia Rheumatoid arthritis ([facility]) Seizures ([facility]) 1998 During Septoplasty surgery per chart from [facility]. Sinusitis, chronic Wears partial dentures Past Surgical History: Procedure Laterality Date ADENOIDECTOMY BLADDER SUSPENSION CRANIOTOMY REPAIR ANEURYSM(MCA ANEURYSM CLIPPING) Right 07/05/2022 Performed by Eric Jimenez MD at [facility] CYSTOSCOPY WITH BLADDER IRRIGATION AND [facility] M BLADDER SOLUTION N/A 03/19/2023 Performed by Db Whitten MD at [facility] Diagnostic cerebral angiogram N/A 07/06/2022 Performed by Yi Bautista MD at [facility] Diagnostic cerebral angiogram N/A 01/02/2022 Performed by Yi Bautista MD at [facility] EGD with bx N/A 07/26/2016 Performed by Db Acevedo MD at [facility] ENDOSCOPY ESSURE TUBAL LIGATION FOOT SURGERY Right HYSTERECTOMY 2010 LAPAROSCOPIC CHOLECYSTECTOMY N/A 04/09/2019 Performed by Geovany Bain MD at [facility] NASAL SEPTOPLASTY W/ TURBINOPLASTY OOPHORECTOMY TONSILLECTOMY [...] by mouth nightly., Disp: , Rfl: omega 3-rit-hpx-fish oil (FISH OIL) 300-1,000 mg capsule,delayed release(DR/EC), [...] patient/family/caregiver Referring and communicating with other health healthcare administration internship Encounter for screening colonoscopy [Z12.11] SHANNA SINGH [facility] General Surgery [place] This note was created with the assistance of a speech recognition program. While intending to generate a timely document that accurately reflects the content of the visit, no guarantee can be provided that every grammatical or spelling mistake has been or will be identified or corrected. Thank you for your understanding. SHANNA Singh 12/05/23 1000 documented in this encounter [facility] 11-20-2023 Miscellaneous Notes Patient called to cancel her colonoscopy appointment for today with Yu Guerrier NP, as she her child ran away in the middle of the night and she is at the [facility] filling out paperwork. She will call us back later to reschedule her appointment. documented in this encounter [facility] 11-20-2023 Telephone encounter Note Patient called to cancel her colonoscopy appointment for today with Yu Guerrier NP, as she her child ran away in the middle of the night and [place] [facility]. She will call us back later to reschedule her appointment. [facility] 10-22-2023 Note Today states that sh elias is out of elavil and does not have appt with PCP until Nov 09- therefore will prescribed short 3 week script to fill [facility] 10-22-2023 Note F[facility] as [facility]23 Note Lipid abnormalities are stable, continue lipitor 40 mg daily [facility] 10-22-2023 Note Hypertension is stab le and well controlled Continue hydrochlorothiazide, losartan, norvasc [facility] 10-22-2023 Note Currently resolved [facility] 10-22-2023 Note Pt is here for a eig ht month follow up. [facility] 10-22-2023 Note Patient here for 1.5 year follow up hypertension. Still has pain under her right breast, where the bone is . Denies SOB and palpitations. Says she hasn't been lightheaded/dizzy since her aneurysm surgery in June 2022. Review of Systems Musculoskeletal: Positive for arthritis, back pain and joint pain. Neurological: Positive for headaches. All other systems reviewed and are negative. [facility] 10-22-2023 Note [facility] C[facility] PROGR ESS [...] but denied syncope. States that [facility]surg at [facility] is planning surgery for aneurysm. Previous [...] 40 mg by mouth at bedtime. omega 4-etu-zna-fish oil 300-1,000 mg capsule,delayed release(DR/EC) omeprazole (PriLOSEC) [...] 91 91 91 (more content not included)... [facility] 06-01-2023 History of Present illness Narrative Patient is here for follow up with Dr. Rodriguez. Orders received to follow up prn. Copy of recent labs provided and pcp info for Dr. Banuelos. documented in this encounter [facility] 06-01-2023 History of Present illness Narrative [facility] 06/01/23 Araceli Pérez is a 42 y.o. [...] She has been followed by Dr. Boyd ([facility] Hematology), due to relocation she came to [...] pain Acid reflux Arthritis Asthma Bleeding disorder ([facility]) Factor V(clotting disorder) per patient Cerebral aneurysm Clotting disorder ([facility]) Dental disease Upper dentures, lower partial Depression Dysphagia Endometriosis Factor 5 Leiden mutation, heterozygous ([facility]) Fibromyalgia, primary GERD (gastroesophageal reflux disease) Without esophagitis Hyperlipidemia Hypertension Injury of back Irregular menstruation Leaking of urine Memory loss Menopause Migraine headache Obesity Painful menstruation Pelvic pain Pneumonia Rheumatoid arthritis ([facility]) Seizures ([facility]) 1998 During Septoplasty surgery per chart from [facility]. Sinusitis, chronic Wears partial dentures Past Surgical History: Procedure Laterality Date ADENOIDECTOMY BLADDER SUSPENSION CRANIOTOMY REPAIR ANEURYSM(MCA ANEURYSM CLIPPING) Right 07/05/2022 Performed by Eric Jimenez MD at [facility] CYSTOSCOPY WITH BLADDER IRRIGATION AND [facility] BLADDER SOLUTION N/A 03/19/2023 Performed by Db Whitten MD at [facility] Diagnostic cerebral angiogram N/A 07/06/2022 Performed by Yi Bautista MD at [facility] Diagnostic cerebral angiogram N/A 01/02/2022 Performed by Yi Bautista MD at [facility] EGD with bx N/A 07/26/2016 Performed by Db Acevedo MD at [facility] ENDOSCOPY ESSURE TUBAL LIGATION FOOT SURGERY Right HYSTERECTOMY 2011 LAPAROSCOPIC CHOLECYSTECTOMY N/A 04/09/2019 Performed by Geovany Bain MD at [facility] NASAL SEPTOPLASTY W/ TURBINOPLASTY OOPHORECTOMY TONSILLECTOMY [...] 20 mg, oral, Daily Commonly known as: PROzac fluticasone propion-salmeteroL 100-50 mcg/dose DISKUS Refills: 0 Dose: 1 puff Commonly known as: ADVAIR losartan 50 mg tablet Refills: 0 Dose: 100 mg Commonly known as: COZAAR naloxone 4 mg/actuation spray,non-aerosol nasal spray Quantity: 1 each Refills: 0 Dose: 1 spray Signed by: LYN MaguireELECTRIC MOTOR REPAIRER 4 mg, alternating nares, As needed Commonly known as: NARCAN omega 5-ptc-hbh-fish oil 300-1,000 mg capsule,delayed release(DR/EC) Refills: 0 Dose: 1 capsule Commonly known as: FISH OIL omeprazole 40 mg capsule Refills: 0 Dose: 40 mg Commonly known as: PriLOSEC solifenacin 5 mg tablet Quantity: 30 tablet Refills: 4 Dose: 5 mg Signed by: Dr. Whitten 5 mg, oral, Daily Commonly known as: CAYLA tiZANidine 2 mg tablet Quantity: 90 tablet [...] and Hemostatic Factor 5 Leiden mutation, heterozygous (CMS-HCC) - Primary Impression: Heterozygous Factor 5 Leiden [...] this note were generated using voice recognition M*Modal dictation software. Although every effort was made to ensure the accuracy of this automated web press operator assistant, some errors in web press operator assistant may have occurred. CC: Patient Care Team: SHANNA Avelar as PCP - General (Primary Care) Irwin Rodriguez MD as Consulting Physician (Hematology) Eren Hester MD as Referring Physician (Rheumatology) Александр Holland, PhD as Referring Physician (Clinical Neurophysiology) Yi Bautista MD as Referring Physician (Neurology) Erci Jimenez MD as Referring Physician (Neurosurgery) SHANNA Matt as Nurse Practitioner (Emergency Medicine) PCP:Shad Elliott Referring MD: Shad Elliott APRN-CNP documented in this encounter [facility] 04-25-2023 Evaluation + Plan note Associated Problem(s): Mixed stress and urge urinary incontinence No constipation no dry mouth. Will start her on 5 mg VESIcare. Refer her to Dr. Engle. Certainly made need some urodynamic study as well. Deferred to his evaluation and management. [facility] 04-25-2023 Miscellaneous Notes Associated Problem(s): Mixed stress and urge urinary incontinence No constipation no dry mouth. Will start her on 5 mg VESIcare. Refer her to Dr. Engle. Certainly made need some urodynamic study as well. Deferred to his evaluation and management. documented in this encounter [facility] 04-25-2023 History of Present illness Narrative Images from the original note were not included. [address] [place] [address] A [facility] [id number] Patient: Araceli Pérez Date of : 1980 [...] pain Acid reflux Arthritis Asthma Bleeding disorder ([facility]) Factor V(clotting disorder) per patient Cerebral aneurysm Clotting disorder ([facility]) Dental disease Upper dentures, lower partial Depression Dysphagia Endometriosis Factor 5 Leiden mutation, heterozygous ([facility]) Fibromyalgia, primary GERD (gastroesophageal reflux disease) Without esophagitis Hyperlipidemia Hypertension Injury of back Irregular menstruation Leaking of urine Memory loss Menopause Migraine headache Obesity Painful menstruation Pelvic pain Pneumonia Rheumatoid arthritis ([facility]) Seizures ([facility]) 1998 During Septoplasty surgery per chart from [facility]. Sinusitis, chronic Wears partial dentures Past Surgical History: Procedure Laterality Date ADENOIDECTOMY BLADDER SUSPENSION CRANIOTOMY REPAIR ANEURYSM(MCA ANEURYSM CLIPPING) Right 07/05/2022 Performed by Eric Jimenez MD at [facility] CYSTOSCOPY WITH BLADDER IRRIGATION AND [facility] BLADDER SOLUTION N/A 03/19/2023 Performed by Db Whitten MD at [facility] Diagnostic cerebral angiogram N/A 07/06/2022 Performed by Yi Bautista MD at [facility] C[facility]AC CATH LABS Diagnostic cerebral angiogram N/A 01/02/2022 Performed by Yi Bautista MD at [facility]ATH [facility] EGD with bx N/A 07/26/2016 Performed by Db Acevedo MD at [facility] ENDOSCOPY ESSURE TUBAL LIGATION FOOT SURGERY Right HYSTERECTOMY 2010 LAPAROSCOPIC CHOLECYSTECTOMY N/A 04/09/2019 Performed by Geovany Bain MD at [facility] NASAL SEPTOPLASTY W/ TURBINOPLASTY OOPHORECTOMY TONSILLECTOMY [...] for opioid reversal. 1 each 0 omega 7-jwn-qqv-fish oil (FISH OIL) 300-1,000 mg capsule,delayed release(DR/EC) [...] day. Plan: Renal bladder ultrasound. Cystoscopy urodynamics [facility] bladder solution. Current Assessment & Plan No constipation no dry mouth. Will start her on 5 mg VESIcare. Refer her to Dr. Engle. Certainly made need some urodynamic study as well. Deferred to his evaluation and management. Follow-up: Db Whitten MD This note was created with the assistance of a speech recognition program. While intending to generate a timely document that accurately reflects the content of the visit, no guarantee can be provided that every grammatical or spelling mistake has been or will be identified or corrected. Thank you for your understanding. documented in this encounter [facility] 03-19-2023 Miscellaneous Notes Return the office about 1 month. Please cancel the patient's appointment today for 3:45. documented in this encounter [facility] 03-19-2023 Telephone encounter Note Return the office about 1 month. Please cancel the patient's appointment today for 3:45. [facility] Work Phone: 03-16-2023 Nurse Note Preoperative Education Checklist- General Surgery date: 03/19/23 Surgery time: 930a Arrival time: 830a 1. Bring a photo ID and your insurance card with you the day of surgery. You will check in at the main lobby of the [facility]- registration desk is straight ahead as soon as you walk in. Tell them you are here for surgery. 2. If you have a Living Will/Durable Power of Executive Admin for Health Care that is not on [...] after you have bathed. 5. NO nail french/acrylic on at least one finger. If you are having a hand, wrist or foot surgery then all nail french and artificial/acrylic nails must be removed from [...] please call the Preadmission Testing office at [phone], Mon.-Fri. 7 a.m.-3 p.m. Leave a voicemail [...] taking 0 days prior to procedure omega 2-zxl-lob-fish oil (FISH OIL) 300-1,000 mg capsule,delayed release(DR/EC) Stop taking 0 days prior to procedure omeprazole (PriLOSEC) 40 mg capsule Take morning of procedure rimegepant (NURTEC ODT) 75 mg tablet,disintegrating Stop taking 0 days prior to procedure tiZANidine (ZANAFLEX) 2 mg tablet Stop taking 0 days prior to procedure [facility] [employer] [facility] 03-16-2023 Miscellaneous Notes Preoperative Education Checklist- General Surgery date: 03/19/23 Surgery time: 930a Arrival time: 830a 1. Bring a photo ID and your insurance card with you the day of surgery. You will check in at the main lobby of the [facility]- registration desk is straight ahead as soon as you walk in. Tell them you are here for surgery. 2. If you have a Living Will/Durable Power of Executive Admin for Health Care that is not on [...] after you have bathed. 5. NO nail french/acrylic on at least one finger. If you are having a hand, wrist or foot surgery then all nail french and artificial/acrylic nails must be removed from [...] please call the Preadmission Testing office at [phone], Mon.-Fri. 7 a.m.-3 p.m. Leave a voicemail [...] taking 0 days prior to procedure omega 8-upc-lut-fish oil (FISH OIL) 300-1,000 mg capsule,delayed release(DR/EC) Stop taking 0 days prior to procedure omeprazole (PriLOSEC) 40 mg capsule Take morning of procedure rimegepant (NURTEC ODT) 75 mg tablet,disintegrating Stop taking 0 days prior to procedure tiZANidine (ZANAFLEX) 2 mg tablet Stop taking 0 days prior to procedure [facility] Evaluation note Encounter Date Diagnosis Assessment [...] (suspected) exposure to covid-19 (ICD-10 - Z20.822) [facility] Other 09-21-2023 Evaluation note* Encounter Date Diagnosis Assessment Notes Treatment Notes Treatment Clinical Notes Oct, GERD (gastroesophageal reflux disease) (ICD-10 - K21.9) Patient reports break through and she will in crease omeprazole 40 mg to BID RTO 6 months Oct, Hiatal hernia (ICD-10 - K44.9) Oct, Schatzki's ring (ICD-10 - K22.2) [facility] Other 08-08-2023 [facility] NoteCARDIAC STRESS TEST Requesting Physician: Mariel [...] be dictated by Radiology team separately.[facility] [id number] NoteCONSULTATION CONSULTATION DATE: 01/10/2022 HISTORY OF PRESENT [...] is being seen by Dr. Bautista at [facility]. The patient is under the care of RAFIA with regards to her migraines. The patient is to have significant workups performed including cardiac. The patient also is to see internal grinder set up operator, retina specialist. As such, given the [...] stress the importance of tobacco cessation.[facility] 12-20-2021 NoteCONSULTATION CONSULTATION DATE: 12/20/2021 CHIEF COMPLAINT: Chronic low back pain, left lower extremity pain. HISTORY OF PRESENT ILLNESS: This is a 41-year-old female who was referred to us by Shad Elliott, nurse practitioner, with [facility]. The patient states she has had [...] The patient is being seen by a mill work on 02/16/2022, neuropsychiatrist in April of 2022, and she is to [facility] on 01/10/2022. As such, the patient's [...] limited at this point. CC: Shad Elliott, RAMANDEEPThe [facility] HospitalEvaluation noteNo assessment information [facility] Work Phone: Evaluation noteNo InformationNort Smart[employer] Other Evaluation note* Diagnosis Factor 5 Leiden mutation, heterozygous (CMS-HCC)- Primary [facility] Diagnosis Mixed stress and urge urinary incontinence- Primary Mixed incontinence urge and stress (male)(female) [facility] Diagnosis Mixed stress and urge urinary incontinence- Primary Mixed incontinence urge and stress (male)(female) Encounter for screening colonoscopy- Primary [facility] Diagnosis Melanocytic nevus of face, other location- Primary Neoplasm of unspecified behavior of bone, soft tissue, and skin documented in this encounter [facility] and physical note Author Siva You [facility] September 12, 2022 1:37pm Note Date/Time September 12, 2022 1:3 7pm [facility] [address] [place] [address] Gastroenterology H&P Signed Patient: Araceli Pérez MR#: [id number] : 1980 Acct:[id number] Age/Sex: 42 / F Adm Date: 3 Loc: Room: Type: [facility] Attending Dr: Siva You MD Copies [...] signed by Siva You MD> 09/12/22 1337 [facility] Work Phone: History general Narrative - Reported* [...] Surgical History craniotomy Hospitalization History see above [facility] Other Hospital Discharge instructions Additional Instructions DISCHARGE [...] NOT operate machinery such as power tools, BlockTrailn mowers, mPortal blowers, sewing machines, etc. for 24 hours. [...] problems. -Follow up with PCP. -Office number [phone].[facility] Work Phone: InstructionsNot on filedocumented in this encounter [facility]Not on filedocumented in this encounter [facility]Not on filedocumented in this encounter [facility]ructionsNot on filedocumented in this encounter [facility] SystemInstructionsNot on filedocumented in this encounter [facility] System[facility]ructionsNot on filedocumented in this encounter [facility] Summary Purpose Family History No Family [...] and content) DATE CREATED AUTHOR 08/06/2021 [facility] DATE CREATED AUTHOR AUTHOR'S ORGANIZ ATION 06/08/2022 [facility] DATE CREATED AUTHOR AUTHOR'S ORGANIZ ATION 09/18/2022 [facility] DATE CREATED AUTHOR AUTHOR'S ORGANIZ ATION 01/23/2024 [facility] DATE CREATED AUTHOR AUTHOR'S ORGANIZ ATION 05/31/2024 [facility] DATE CREATED AUTHOR AUTHOR'S ORGANIZ ATION 06/02/2024 [facility] EPIC DATE CREATED AUTHOR AUTHOR'S ORGANIZ ATION 07/08/2024 [facility] DATE CREATED AUTHOR AUTHOR'S ORGANIZ ATION 07/09/[address] [facility] Care Teams (unrecognized sec tion and content) Team Status: Inactive Member Role Status Dates Ron Wallace DO Attending Provider Active NON STAFF Primary Care Provider Active Team Status: Active Member Role Status Dates NON STAFF Primary Care Provider Active Team Status: Inactive Member Role Status Dates NON STAFF Primary Care Provider Active Siva You MD Attending Provider Active Electrogalvanizing Machine Operator Relationship Specialty Start Date End Date Shad Elliott, FRENCH PASTRY COOK-ELECTRIC MOTOR REPAIRER [address] [place] [address] PCP - General Primary Care 12/06/21 Electrogalvanizing Machine Operator Relationship Specialty Start Date End Date Shad Elliott FRENCH PASTRY COOK-ELECTRIC MOTOR REPAIRER [address] [place] [address] PCP - General Primary Care 12/06/21 Electrogalvanizing Machine Operator Relationship Specialty Start Date End Date Shad Elliott FRENCH PASTRY COOK-ELECTRIC MOTOR REPAIRER [address] [place] [address] PCP - General Primary Care 12/06/21 Electrogalvanizing Machine Operator Relationship Specialty Start Date End Date Bhumi Helm FRENCH PASTRY COOK-LABORER [employer] [address] [place] [address] PCP - General Family Medicine 11/12/23 Electrogalvanizing Machine Operator Relationship Specialty Start Date End Date Bhumi Helm FRENCH PASTRY COOK-LABORER [employer] [address] [place] [address] PCP - General Family Medicine 11/12/23 Electrogalvanizing Machine Operator Relationship Specialty Start Date End Date Bhumi Helm FRENCH PASTRY COOK-LABORER [employer] [address] [place] [address] PCP - General Family Medicine 11/12/23 Electrogalvanizing Machine Operator Relationship Specialty Start Date End Date Bhumi Helm FRENCH PASTRY COOK-LABORER [employer] [address] [place] [address] PCP - General Family Medicine 11/12/23 Electrogalvanizing Machine Operator Relationship Specialty Start Date End Date Sharmin Poole PA PCP - [facility] 08/06/23 Electrogalvanizing Machine Operator Relationship Specialty Start Date End Date Sharmin Poole PA PCP - [facility] 08/06/23 Electrogalvanizing Machine Operator Relationship Specialty Start Date End Date Bhumi Helm, FRENCH PASTRY COOK-LABORER [employer] [address] [place] [address] PCP - General Family Medicine 11/12/23 Goals (unrecognized section and content) [...] Lesion Specialty Diagnoses / Procedures Referred By Contac t Referred To Contact Dermatology Diagnoses scalp lesion Procedures office visit Marisol Canales MD [address] [place] [address] fax: Chau Williamson MD [address] [place] [address] Phone: tel: fax: Referral ID Status Reason Start Date Expiration Date Visits Re quested Visits Authorized [id number] Closed 05/15/2024 11/11/2024 1 1 Reason Onset [...] BE BASED ON THE PRIMARY CLINICAL RECORDS. [facility]. provides no warranty or guarantee of the accuracy or completeness of information in this document.
--- NOTE | 2024-07-10 09:38 | PM.CN ---
Consult Note: HPI Data of Consult Patient: known to practice within the last 3 years Requesting Physician: Tash Hairston NP Primary Care Provider: [facility] Consult Narrative Reason for consult: FM, low back pain Narrative: Juliana Pérez a 43 year old female presents for evaluation of FM, chronic pain syndrome, and low back pain/ Pain today 10/15 in low back hurts . Pain increases with pushing, puling, standing, walking, lifting, housework, ADLs, activity, weather changes. Improved with ice and sitting. denies loss of bowel/bladder. longstanding history of left lateral thigh and LE numbness tingling and bilateral feet, started around 2008 per pt. She has seen numerous specialists due to complex history, pt reports hx of 2 aneurysms requiring surgical intervention/clipping, RA, FM, factor five leiden, and squamous cell skin cancer. currently following with dermatology, neurology, PCP, psychiatry, and counseling. in the past has failed gabapentin, lyrica, baclofen, flexeril, tizanidine, tylenol. allergies to duloxetine and naproxen. pt recently completed 6 visits of aquatherapy without improvement. cc:: CC: Tash Hairston NP Review of Systems ROS Musculoskeletal Reports: back pain, extremity pain and joint pain PFSH PFSH Social History Smoking status: Current every day smoker Little interest or pleasure in doing things: not at all Feeling down, depressed, or hopeless: not at all Meds Home Medications and Allergies Home Medications ?Medication ?Instructions ?Recorded ?Confirmed ?Type amitriptyline 25 mg tablet 25 mg PO DAILY 04/09/24 06/24/24 History amlodipine 10 mg tablet 10 mg PO DAILY 04/09/24 06/24/24 History atorvastatin 40 mg tablet 40 mg PO DAILY 04/09/24 06/24/24 History losartan 100 mg tablet 100 mg PO DAILY 04/09/24 06/24/24 History omega-3 fatty acids-fish oil 300 1 cap PO DAILY 04/09/24 06/24/24 History mg-1,000 mg capsule omeprazole 40 mg capsule,delayed 40 mg PO BID 04/09/24 06/24/24 History release hydrocodone 5 mg-acetaminophen 325 1 tab PO TID PRN pain 4 days #12 06/24/24 Rx mg tablet tabs ketorolac 10 mg tablet 10 mg PO TID PRN pain 4 days #12 06/24/24 Rx tabs prednisone 20 mg tablet 40 mg (2 x 20 mg) PO DAILY 5 days 06/24/24 Rx #10 tabs Allergies Allergy/AdvReac Type Severity Reaction Status Date / Time Penicillins Allergy Intermediate shortness Verified 06/24/24 16:20 of breath duloxetine (From Cymbalta) AdvReac Intermediate Vomiting Verified 06/24/24 16:20 naproxen (From EC-Naproxen) AdvReac Intermediate Rash Verified 06/24/24 16:20 nickel AdvReac Rash Uncoded 06/24/24 16:20 Exam Narrative Exam Narrative: hyperalgesia Constitutional Documenting provider has reviewed patient's vital signs: yes Common normals: oriented x3, healthy appearing, alert and well nourished General appearance: cooperative HENMT Common normals: normocephalic, hearing grossly normal bilaterally and moist oral mucous membranes Head and scalp: normocephalic Eye Common normals: PERRL Pupil: PERRL Neck & C-Spine Common normals: full ROM General: normal visual inspection Chest Common normals: inspection of chest normal Respiratory Common normals: normal respiratory effort, no retractions and no use of accessory muscles Back & Pelvis Lumbar spine/lower back: ROM limited, pain with ROM, lumbar spinal tenderness, paraspinal muscle tenderness, paraspinal muscle spasm, straight leg raise positive right and straight leg raise positive left Sacroiliac joints: SI joint(s) abnormal Other: left > right positive judy(patricks), gaenslens, thigh thrust, compression test decreased sensation to left L4,5,S1 strength 4/5 in BLE neuropathic pain to bilateral feet Neuro Common normals: oriented x3 Sensorium/orientation: alert Psych Common normals: mental status grossly normal, thought process normal, cooperative, affect normal, speech normal and activity/motor behavior normal Speech: normal speech Thought process: normal thought process Results Additional Findings Additional findings: If on a controlled substance or opioids, I have checked an [place]AR[place] report on this patient and there are no aberrancies noted in the prescribing history.??If on a controlled substance or opioid a drug screen was completed and reviewed within the last year, and if there has not been a drug screen completed we ordered one today to monitor higher risk, state monitored pain medication use. As part of providing excellent, safe, comprehensive care, the following was completed at our patient's visit: 1. A medication reconciliation and review to ensure accurate knowledge of current/active medications, including asking our patients to inform us about any [id number]-xnnzrcc medications or herbal remedies/nutritional supplements/alternative remedies. 2. A review to specifically ensure our patients have had annual screening for screening for depression, screening for tobacco use, and screening for unhealthy alcohol use. For concerning screenings had a discussion with the patient, provided patient education, and recommended follow-up with primary care provider when appropriate. If patient noted with a risk of falling, they received education on strength, gait, and balance training to prevent future risk of falling. Portions of this note may have been carried over from the previous visit and updated as appropriate. Please note this office utilizes paper charting in addition to the electronic medical record. A list of current medications, vitals, and PMH is available there as the clinical staff outside of myself do not have access to [employer] charting during the clinic day operations. As part of providing quality comprehensive care the current medications, vitals, and PMH were reviewed in the paper chart. Assessment and Plan Assessment and Plan (1) Lumbar stenosis with neurogenic claudication: Assessment and Plan: The patient has had over 3 months of moderate to severe back and LLE pain with functional impairment and inadequate response to conservative care including NSAIDS (unless there are contraindication such as concurrent blood thinners), multiple oral or topical pain medications, and home exercise program/physical therapy.? Patient has completed >6 weeks of guided home exercise program and/or formal physical therapy program without relief of their symptoms.? The Oswestry Disability Index was completed, and the patient scored a 68%.? The patient noted the following:?? moderate to severe pain impacting ADLs, sitting, standing, walking, lifting, social life, travel, sleep (2) Lumbar radiculopathy: (3) Sacroiliitis: (4) Fibromyalgia: (5) Chronic pain syndrome: (6) Meralgia paresthetica: Plan 43 year old female presents for evaluation of CPS, FM, and low back pain. hx of lumbar spondylosis on prior xray, no recent lumbar CT/MRI. cannot undergo MRIs with brain clips post anuerysms. has failed numerous medications, trialing CBD oil at this time for pain relief. psychiatry recently prescribed abilify and zoloft, shes on amitriptyline 30mg hs yolie mild relief, pending evaluation with counselor. defer additional medication management at this time, risks of polypharmacy. may consider LDN in the future. discussed with pt she may benefit from [facility] comprehensive pain program for FM due to significant FM history and pain, as well as failure to respond to traditional medications for FM including duloxetine, gabapentin, pregabalin, and now amitriptyline. update lumbar CT without contrast to assess lumbar stenosis with NC and lumbar radiculopathy. update EMG of BLE to assess neuropathic pain and potential chronic lumbar radiculopathy vs meralgia paresthetica. continue f/u with dermatology, neurology, PCP, counselor, and psychiatry as planned. continue HEP as tolerated, defer additional PT at this time. UPHOLSTERER OUTSIDE reviewed and signed, defer UDS. f/u to review CT and EMG.
== END 2024-07-10 08:53 | disposition home or self-care (01) ==
LOC: PM 08:53
PROVIDERS: Visit Provider Nurse Practitioner
DX: M48.062 Spinal stenosis, lumbar region with neurogenic claudication (principal); M46.1 Sacroiliitis, not elsewhere classified; M79.7 Fibromyalgia; G89.4 Chronic pain syndrome; G57.10 Meralgia paresthetica, unspecified lower limb
CPT/HCPCS: G0463

== ENCOUNTER 2024-07-14 07:35 | Outpatient (OUT) | payer MEDICAID, SELFPAY ==
--- OUTSIDE RECORDS SUMMARY | 2024-07-03 09:58 | XMS_ITS | Encounter Summary ---
Author Organization [employer] tem Address [facility] [id number] [address] [place] [address] Care Team Providers Care Command Center Officer Name Role Phone Ivon Wayne SPANISH INTERPRETER/TRANSLATOR-INSTITUTIONAL NUTRITION CONSULTANT Primary Care Provider [phone]- [phone] Reason for Referral * Diagnostic Imaging (Routine) - Closed Specialty Diagnoses / Procedures Referred By Contac t Referred To Contact Radiology Diagnoses Frequent headaches Procedures CT brain without contrast Marisol Canales MD [address] [place] [address] Phone: tel: fax: Referral ID Status Reason Start Date Expiration Date Visits Re quested Visits Authorized [id number] Closed 06/10/2024 06/10/2025 1 1 Reason for Visit * Diagnostic Imaging (Routine) - Closed Specialty Diagnoses / Procedures Referred By Contac t Referred To Contact Radiology Diagnoses Frequent headaches Procedures CT brain without contrast Marisol Canales MD [address] [place] [address] Phone: tel: fax: Referral ID Status Reason Start Date Expiration Date Visits Re quested Visits Authorized [id number] Closed 06/10/2024 06/10/2025 1 1 Encounter Details Date Type Department Care Team (Latest Contact Info) Description 07/03/2024 9:58 AM EDT Hospital Encounter [facility] - CT Imaging [address] [place] [address] Frequent headaches Discharge Disposition: Home Social History Tobacco Use Types Packs/Day Years Used Date Smoking Tobacco: Every Day Cigarettes 0.3 45 Smokeless Tobacco: Never Comments:Has a patch and jason n to 4 cig. Per day Alcohol Use Standard Drinks/Week Comments No 0 (1 standard drink = 0.6 oz pur e alcohol) AUDIT-C Answer Date Recorded Q1: How often do you have a drink containing alcohol? Never 07/05/2022 Q2: How many drinks containi ng alcohol do you have on a typical day when you are drinking? Patient does not drink Q3: How often do you have si x or more drinks on one occasion? Never 07/05/2022 PHQ-2 Answer Date Recorded Total Score 4 07/05/2022 Childcare Answer Date Recorded Childcare Unknown 07/17/2018 Employment Answer Date Recorded Employment Unknown 07/17/2018 Hunger Screening Answer Date Recorded Within the past 12 months we worried whether our food would run out before we got money to buy more. Never True 04/25/2023 Within the past 12 months th e food we bought just didn't last and we didn't have money to get more. Never True 04/25/2023 Purpose - Life Answer Date Recorded Purpose and direction in life Unknown Comments No Sex and Gender Information Value Date Recorded Sex Assigned at Not on file Legal Sex Female 11:27 AM EDT Gender Identity Not on file Sexual Orientation Not on file documented as of this encounter Medications at Time of Discharge amitriptyline (ELAVIL) 10 mg tablet Take 3 tablets (30 mg total) by mouth nightly. at bedtime 06/10/2024 amLODIPine (NORVASC) 5 mg tabletIndication s:hypertension Take 2 tablets (10 mg total) by mouth nightly Indications: high blood pressure. 12/25/2021 atorvastatin (LIPITOR) 20 mg tablet Take 2 tablets (40 mg total) by mouth in the morning. 04/24/2022 bisacodyL (DULCOLAX, BISACODYL,) 5 mg EC tabletIndication s:Encounter for screening colonoscopy Please see instructional sheet given by physicians office. 2 tablet 12/05/2023 hydroCHLOROthiaz shayne (HYDRODIURIL) 25 mg tablet Take 1 tablet (25 mg total) by mouth daily. 10/22/2023 losartan (COZAAR) 50 mg tablet Take 2 tablets (100 mg total) by mouth nightly. 12/05/2021 omega 0-yto-ybd-fish oil (FISH OIL) 300-1,000 mg capsule,delayed release(DR/EC) Take 1 capsule by mouth in the morning. 05/22/2022 omeprazole (PriLOSEC) 40 mg capsule Take 1 capsule (40 mg total) by mouth every morning before breakfast. 12/07/2021 solifenacin (VESICARE) 5 mg tablet Take 1 tablet (5 mg total) by mouth in the morning. 30 tablet 4 04/25/2023 tiZANidine (ZANAFLEX) 2 mg tabletIndication s:Fibromyalgia One tab at 8:00 p.m.each night 90 tablet 1 11/29/2022 amitriptyline (ELAVIL) 50 mg tabletIndication s:Fibromyalgia One capsule at 8 PM each night 90 tablet 1 11/29/2022 documented as of this encounter Plan of Treatment Upcoming Encounters Date Type Department Care Team (Late st Contact Info) Description 10/08/2024 9:00 AM EDT Office Visit [facility] [place] [address] Freedom Hsu, PA-C [address] [facility] [address] [place] [address] documented as of this encounter Procedures Procedure Name Priority Date/Time Associated Diagnosis Comments CT BRAIN WO CONT Routine 07/03/2024 10:3 2 AM EDT Frequent headaches documented in this encounter Results * CT brain without contrast (07/03/2024 10:32 AM EDT) Anatomical Region Laterality Modality Neuro, Head, Head and Neck, Neuro Covera N/A Computed Tomography 07/07/2024 7:19 AM EDT Narrative 07/07/2024 7:20 AM EDT STUDY: CT HEAD WITHOUT CONTRAST CLINICAL HISTORY: Frequent headaches Aneurysm clamped 2022. Persistent headaches COMPARISON: None Procedure: Multi-detector CT performed through the brain without IV contrast. The lack of IV contrast limits evaluation for acute infarct, mass, infectious process,or demyelinating disease.Automated exposure control was utilized. Findings: There is no intracranial hemorrhage, extra-axial fluid collection, mass effect, or hydrocephalus. Roberts-white matter differentiation is appropriate. Infarcts and masses may be occult on CT, but grossly no acute infarct identified There is no midline shift. IMPRESSION: * No acute intracranial findings. Consider brain MRI if you suspect occult process. All CT scans at this facility use dose modulation, iterative reconstruction, and/or weight based dosing when appropriate to reduce radiation dose to as low as reasonably achievable. Finalized by Cedrick Hogue MD on 07/07/2024 7:20 AM Procedure Note Cedrick Hogue MD - 07/07/2024 STUDY: CT HEAD WITHOUT CONTRAST CLINICAL HISTORY: Frequent headaches Aneurysm clamped 2022. Persistent headaches COMPARISON: None Procedure: Multi-detector CT performed through the brain without IV contrast. Thelack of IV contrast limits evaluation for acute infarct, mass, infectiousprocess,or demyelinating disease.Automated exposure control wasutilized. Findings: There is no intracranial hemorrhage, extra-axial fluid collection, masseffect, or hydrocephalus. Roberts-white matter differentiation is appropriate. Infarcts and masses may be occult on CT, but grossly no acute infarctidentified There is no midline shift. IMPRESSION: * No acute intracranial findings. Consider brain MRI if you suspectoccult process. All CT scans at this facility use dose modulation, iterativereconstruction, and/or weight based dosing when appropriate to reduceradiation dose to as low as reasonably achievable. Finalized by Cedrick Hogue MD on 07/07/2024 7:20 AM Marisol Canales MD IMFrance CT ORDERABLES Final Result documented in this encounter Visit Diagnoses Diagnosis Frequent headaches documented in this encounter Additional Health Concerns Assessment Noted Time PHQ-9 Depression Total Score: 4 07/06/19 23 2:10 PM EDT documented as of this encounter Care Teams Command Center Officer Relationship Specialty Start Date End Date Ivon Wayne, JESSICA-INSTITUTIONAL NUTRITION CONSULTANT [address] [id number] PCP - General Family Medicine 11/12/23 documented as of this encounter
--- OUTSIDE RECORDS SUMMARY | 2024-07-03 09:59 | XMS_ITS | Encounter Summary ---
Author Organization [employer] tem Address [id number] [address] [place] [address] Care Team Providers Care Director Of Digital Technology Name Role Phone Ivon Wayne BUSINESS INTELLIGENCE DEVELOPER-WATER TANKER DRIVER Primary Care Provider [phone]- [phone] Reason for Referral * Diagnostic Imaging (Routine) - Closed Specialty Diagnoses / Procedures Referred By Contac t Referred To Contact Radiology Diagnoses Frequent headaches Procedures CT angiogram head Marisol Canales MD [address] [place] [address] Phone: tel: fax: Referral ID Status Reason Start Date Expiration Date Visits Re quested Visits Authorized [id number] Closed 06/10/2024 06/10/2025 1 1 Reason for Visit * Diagnostic Imaging (Routine) - Closed Specialty Diagnoses / Procedures Referred By Conttalia t Referred To Contact Radiology Diagnoses Frequent headaches Procedures CT angiogram head Marisol Canales MD [address] [place] [address] Phone: tel: fax: Referral ID Status Reason Start Date Expiration Date Visits Re quested Visits Authorized [id number] Closed 06/10/2024 06/10/2025 1 1 Encounter Details Date Type Department Care Team (Latest Contact Info) Description 07/03/2024 9:59 AM EDT - 07/03/2024 11:59 PM EDT Hospital Encounter [facility] - CT Imaging [address] [facility] [place] [place] [address] Frequent headaches Discharge Disposition: Home [...] mg total) by mouth nightly. 12/05/2021 omega 2-nhj-gdb-fish oil (FISH OIL) 300-1,000 mg capsule,delayed release(DR/EC) [...] PM each night 90 tablet 1 11/29/2022 5 documented as of this encounter Plan of Treatment Upcoming Encounters Date Type Department Care Team (Late st Contact Info) Description 10/08/2024 9:00 AM EDT Office Visit [facility] [place] [address] Freedom Hsu PA-C [address] [facility] [address] [place] [address] documented as of this encounter Procedures Procedure Name Priority Date/Time Associated Diagnosis Comments CT CTA HEAD Routine 07/04/2024 7:11 AM EDT Frequent headaches documented in this encounter Results * CT angiogram head (07/04/2024 7:11 AM EDT) Anatomical Region Laterality Modality Head, Neuro, Vascular, Head and Neck, Neuro Eckerty ra N/A Computed Tomography 07/07/2024 3:12 PM EDT Narrative 07/07/2024 3:17 PM EDT HISTORY: A 43-year-old female with a history of the 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 There is are daily frequent headaches. TECHNIQUE: Multidetector spiral CT scan of the head is performed by using CT angiogram protocol. The patient received 100 mL of Omnipaque [address] angiogram is performed. MIP and/or 3-D reconstruction images are reformatted. All CT scans at this facility use dose modulation, iterative reconstruction, and/or weight based dosing when appropriate to reduce radiation dose to as low as reasonably achievable. Note:Arterial blood flow was measured to assist the stroke clinical team in the diagnosis of large vessel occlusion in patients undergoing screening for acute ischemic stroke using Rapid AI software when clinically indicated. COMPARISON: Comparison is made with the CT scan of the brain of comparison is made with prior CT scan of the brain of 07/03/2024 FINDINGS: CT angiogram demonstrates patent both intracranial internal and cavernous carotid arteries are patent without significant stenosis. Both distal vertebral and basilar arteries are patent. Vertebrobasilar junction is normal. Posterior inferior cerebellar arteries are patent. Anterior, middle and posterior cerebral arteries are patent. There is no evidence of significant stenosis of the large vessels. There is evidence of right-sided craniotomy with clamping of the aneurysm in the region of the M1 and M2 junction of the right middle cerebral artery. No evidence of aneurysm on the current examination. Postsurgical changes seen. The deep venous system and dural venous sinuses appear to be patent. IMPRESSION: 1. There is a right sided craniotomy with clamping of the aneurysm. Postsurgical changes seen. No aneurysm is identified on current examination. 2. No evidence of significant stenosis or occlusion of the large vessels. Finalized by Destin Gomes MD on 07/07/2024 3:17 PM Procedure Note Destin Gomes MD - 07/07/2024 HISTORY: A 43-year-old female with a history of the clamping of theaneurysm of the right MCA in 2022. There is are daily frequentheadaches. TECHNIQUE: Multidetector spiral CT scan of the head is performed by usingCT angiogram protocol. The patient received 100 mL of Omnipaque 350intravenously. The CT angiogram is performed. MIP and/or 3-Dreconstruction images are reformatted. All CT scans at this facility use dose modulation, iterativereconstruction, and/or weight based dosing when appropriate to reduceradiation dose to as low as reasonably achievable. Note:Arterial blood flow was measured to assist the stroke clinical teamin the diagnosis of large vessel occlusion in patients undergoingscreening for acute ischemic stroke using Rapid AI software whenclinically indicated. COMPARISON: Comparison is made with the CT scan of the brain ofcomparison is made with prior CT scan of the brain of 07/03/2024 FINDINGS: CT angiogram demonstrates patent both intracranial internal andcavernous carotid arteries are patent without significant stenosis. Both distal vertebral and basilar arteries are patent. Vertebrobasilarjunction is normal. Posterior inferior cerebellar arteries are patent. Anterior, middle and posterior cerebral arteries are patent. There is noevidence of significant stenosis of the large vessels. There is evidence of right-sided craniotomy with clamping of the aneurysmin the region of the M1 and M2 junction of the right middle cerebralartery. No evidence of aneurysm on the current examination. Postsurgicalchanges seen. The deep venous system and dural venous sinuses appear to be patent. IMPRESSION: 1. There is a right sided craniotomy with clamping of the aneurysm.Postsurgical changes seen. No aneurysm is identified on currentexamination. 2. No evidence of significant stenosis or occlusion of the largevessels. Finalized by Destin Gomes MD on 07/07/2024 3:17 PM Marisol Canales MD IM CT ORDERABLES Final Result documented in this encounter Visit Diagnoses Diagnosis Frequent headaches documented in this encounter Administered Medications Inactive Administered Medications - up to 3 most recent administrations Medication Order MAR Action Action Date Dose Rate Site iohexoL (OMNIPAQUE) 350 mg iodine/mL injection 100 mL 100 mL, intravenous, Once in imaging, contrast, Starting on Fátima 07/03/24 at 1034, For 1 dose, VESICANT (RED) Given 07/03/2024 10:30 AM EDT 100 mL sodium chloride 0.9 % flush 10 mL 10 mL, intravenous, As needed, line care, Starting on Fátima 07/03/24 at 1034 Given 07/03/2024 10:30 AM EDT 10 mL sodium chloride 0.9 % radiology injection 80 mL, intravenous, Once in imaging, pre/post contrast, Starting on Fátima 07/03/24 at 1034, For 1 dose Given 07/03/2024 10:30 AM EDT 80 mL documented in this encounter Additional Health Concerns Assessment Noted Time PHQ-9 Depression Total Score: 4 07/06/19 23 2:10 PM EDT documented as of this encounter Care Teams Director Of Digital Technology Relationship Specialty Start Date End Date Ivon Wayne APRN-WATER TANKER DRIVER [address] [id number] PCP - General Family Medicine 11/12/23 documented as of this encounter
--- OUTSIDE RECORDS SUMMARY | 2024-07-07 07:30 | XMS_ITS ---
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 Name Role Phone Marisol Canales Primary Care Provider [phone] Hebert Reyes Unavailable [phone] Allergies Allergen (clinical drug ingredient) Drug/Non Drug Allergy documented on EMR Reaction Allergy Type Onset Date Status duloxetine Cymbalta nausea and vomiting Drug Allergy Active naproxen Naproxen rash Drug Allergy Active nickel Nickel Unknown Allergy Active Penicillin Unknown Drug Allergy Active REASON FOR VISIT f/u Medications Medication SIG (Take, Route, Frequency, Duration) Notes Start Date End Date Status predniSONE 20 MG Oral for 5 Days Not-Taking hydroCHLOROthiazide 25 MG 1 tablet in th e morning Oral Once a day for 90 days Not-Taking ARIPiprazole 2 MG 1 tablet at bedtime Orally Once a day for 30 days 07/07/2024 Active Sertraline HCl 50 MG 1 tablet in the morning Orally Once a day for 30 days 07/07/2024 Active Ketorolac Tromethamine 10 MG Oral for 3 Days Active Albuterol Sulfate HFA 108 (9 0 Base) MCG/ACT 2 puffs as needed Inhalation every 4 hrs for 17 days Active amLODIPine Besylate 10 MG 1 tablet Orall y Once a day for 90 days Active Amitriptyline HCl 10 MG 3 tablet at bedt angel Oral Once a day for 30 days Active Fish Oil 1000 MG TAKE 1 CAPSULE BY MOUTH EVERY DAY FOR 90 DAYS for 90 Active HYDROcodone-Acetaminophen 5-325 MG take 1 tab orally three times a day As Needed for pain for 4 days Oral for 3 Days Not-Taking Omeprazole 40 mg 1 capsule by mouth twice daily for 90 days Active Atorvastatin Calcium 40 MG 1 tablet Oral ly Once a day for 90 days Active Losartan Potassium 100 MG 1 tablet Orall y Once a day for 90 days Active Social History Tobacco Use: Social History Observation Description Date Details (start date - stop date) Current Smoker 02/19/1997 - NA Sex Assigned At : Social History Observation Description Sex Assigned At Female Tobacco Use/Smoking Question Answer Notes Are you interested in quitting? Thinking about q uitting patient entered data Tobacco use: current smoker patient enter ed data When did you start smoking? 02/19/1997 p atient entered data How often do you smoke cigarettes? every day patient entered data How many cigarettes a day do you smoke? 6-10 patient entered data How soon after you wake up d o you smoke your first cigarette? 31-60 minutes patient entered vicky a When did you start smoking? 02/06/1988 Additional Findings: Tobacco User Moderate cigarette smoker (10-19 cigs/day) CAGE-AID Questionnaire (2018 Edition) Question Answer Notes Have you ever felt that you ought to cut down on your drinking or drug use? No patient entered data Have people annoyed you by c riticizing your drinking or drug use? No patient entered data Have you ever felt bad or gu ilty about your drinking or drug use? No patient entered data Have you ever had a drink or used drugs first thing in the morning to steady your nerves or to get rid of a hangover? No patient entered data CAGE-AID Score 0 Interpretation Negative Problems Problem Type SNOMED Code ICD Code Onset Dates Problem Status W/U Status Risk Notes Problem 99063306 Anxiety (F41.9) Active confirmed Vital Signs Weight 253.0 lbs 07/07/2024 Height 64.00 in 07/07/2024 BMI 43.42 kg/m2 07/07/2024 Blood pressure systolic 123 mm Hg 07/08/19 25 Blood pressure diastolic 82 mm Hg 025 Heart Rate 86 /min 07/07/2024 Respiratory Rate 18 /min 07/07/2024 Oximetry 98 % 07/07/2024 Weight-kg 114.76 kg 07/07/2024 Height-cm 162.56 cm 07/07/2024 Encounters Encounter Location Date Provider Diagnosis Main [address] [place], [place] [id number] 07/07/2024 Hebert Reyes Cigarette nicotine dependence without complication F17.210 ; Major depression F32.9 ; Dietary counseling Z71.3 ; Exercise counseling Z71.82 and Anxiety F41.9 Assessments Encounter Date Diagnosis (ICD Code) Assessment Notes Treatment Notes Treatment Clinical Notes Section Notes 07/07/2024 Cigarette nicotine dependence without complication (ICD-10 - F17.210) Patient provided with [phone]-[phone]- Now phone line. Treatment options discussed. Encouraged counseling. Encouraged CDC for nicotine dependence. Reviewed risks/benefits, major/common side effects, and alternatives of medication plan with patient, stated understanding and agreement with plan. Medication and allergy list reconciled. The patient was informed of contraindications of alcohol, THC use and side effects of any substances with medications. Antipsychotic Medication: We discussed the risks/benefits and side effects of medications. I stressed in particular side effects including but not limited to metabolic syndrome, weight gain, increased prolactin levels, tardive dyskinesia, QTc prolongation, neuroleptic malignant syndrome, excessive somnolence or confusion. Antidepressant Medication: We discussed the risks/benefits and side effects of medications. I stressed in particular side effects including but not limited to gastrointestinal problems, sexual dysfunction, serotonin syndrome, agitation, rare induction of wai, rare activation of suicidality. We discussed issues related to healthy weight, diet, and sleep hygiene. Discussed the heat related illness in psychotropic medication users and advised to take precautions to avoid heatstroke and heat exhaustion encouraged to increase fluids and use sunscreen. Discussed the cold related illness in psychotropic medication users and advised to take precautions to avoid adverse effects. Discussed the SE of nicotine and caffeine in sleep disturbance and anxiety. Start Zoloft 50mg oral am for depression, anxiety. Start Abilify 2mg oral HS for MDD. Educated pt on importance medication compliance. Encouragement and support provided. RTO in 2 weeks or PRN. Crisis text/hotline provided. Instructed to seek medical help, call 911 or go the nearest ER for evaluation if experiencing SI/HI. Patient verbalized understanding and acceptance of plan. 07/07/2024 Major depression (ICD-10 - F32.9) Treatment options discussed. Encouraged counseling. Encouraged CDC for nicotine dependence. Reviewed risks/benefits, major/common side effects, and alternatives of medication plan with patient, stated understanding and agreement with plan. Medication and allergy list reconciled. The patient was informed of contraindications of alcohol, THC use and side effects of any substances with medications. Antipsychotic Medication: We discussed the risks/benefits and side effects of medications. I stressed in particular side effects including but not limited to metabolic syndrome, weight gain, increased prolactin levels, tardive dyskinesia, QTc prolongation, neuroleptic malignant syndrome, excessive somnolence or confusion. Antidepressant Medication: We discussed the risks/benefits and side effects of medications. I stressed in particular side effects including but not limited to gastrointestinal problems, sexual dysfunction, serotonin syndrome, agitation, rare induction of wai, rare activation of suicidality. We discussed issues related to healthy weight, diet, and sleep hygiene. Discussed the heat related illness in psychotropic medication users and advised to take precautions to avoid heatstroke and heat exhaustion encouraged to increase fluids and use sunscreen. Discussed the cold related illness in psychotropic medication users and advised to take precautions to avoid adverse effects. Discussed the SE of nicotine and caffeine in sleep disturbance and anxiety. Start Zoloft 50mg oral am for depression, anxiety. Start Abilify 2mg oral HS for MDD. Educated pt on importance medication compliance. Encouragement and support provided. RTO in 2 weeks or PRN. Crisis text/hotline provided. Instructed to seek medical help, call 911 or go the nearest ER for evaluation if experiencing SI/HI. Patient verbalized understanding and acceptance of plan. 07/07/2024 Dietary counseling (ICD-10 - Z71.3) Treatment options discussed. Encouraged counseling. Encouraged CDC for nicotine dependence. Reviewed risks/benefits, major/common side effects, and alternatives of medication plan with patient, stated understanding and agreement with plan. Medication and allergy list reconciled. The patient was informed of contraindications of alcohol, THC use and side effects of any substances with medications. Antipsychotic Medication: We discussed the risks/benefits and side effects of medications. I stressed in particular side effects including but not limited to metabolic syndrome, weight gain, increased prolactin levels, tardive dyskinesia, QTc prolongation, neuroleptic malignant syndrome, excessive somnolence or confusion. Antidepressant Medication: We discussed the risks/benefits and side effects of medications. I stressed in particular side effects including but not limited to gastrointestinal problems, sexual dysfunction, serotonin syndrome, agitation, rare induction of wai, rare activation of suicidality. We discussed issues related to healthy weight, diet, and sleep hygiene. Discussed the heat related illness in psychotropic medication users and advised to take precautions to avoid heatstroke and heat exhaustion encouraged to increase fluids and use sunscreen. Discussed the cold related illness in psychotropic medication users and advised to take precautions to avoid adverse effects. Discussed the SE of nicotine and caffeine in sleep disturbance and anxiety. Start Zoloft 50mg oral am for depression, anxiety. Start Abilify 2mg oral HS for MDD. Educated pt on importance medication compliance. Encouragement and support provided. RTO in 2 weeks or PRN. Crisis text/hotline provided. Instructed to seek medical help, call 911 or go the nearest ER for evaluation if experiencing SI/HI. Patient verbalized understanding and acceptance of plan. 07/07/2024 Exercise counseling (ICD-10 - Z71.82) Treatment options discussed. Encouraged counseling. Encouraged CDC for nicotine dependence. Reviewed risks/benefits, major/common side effects, and alternatives of medication plan with patient, stated understanding and agreement with plan. Medication and allergy list reconciled. The patient was informed of contraindications of alcohol, THC use and side effects of any substances with medications. Antipsychotic Medication: We discussed the risks/benefits and side effects of medications. I stressed in particular side effects including but not limited to metabolic syndrome, weight gain, increased prolactin levels, tardive dyskinesia, QTc prolongation, neuroleptic malignant syndrome, excessive somnolence or confusion. Antidepressant Medication: We discussed the risks/benefits and side effects of medications. I stressed in particular side effects including but not limited to gastrointestinal problems, sexual dysfunction, serotonin syndrome, agitation, rare induction of wai, rare activation of suicidality. We discussed issues related to healthy weight, diet, and sleep hygiene. Discussed the heat related illness in psychotropic medication users and advised to take precautions to avoid heatstroke and heat exhaustion encouraged to increase fluids and use sunscreen. Discussed the cold related illness in psychotropic medication users and advised to take precautions to avoid adverse effects. Discussed the SE of nicotine and caffeine in sleep disturbance and anxiety. Start Zoloft 50mg oral am for depression, anxiety. Start Abilify 2mg oral HS for MDD. Educated pt on importance medication compliance. Encouragement and support provided. RTO in 2 weeks or PRN. Crisis text/hotline provided. Instructed to seek medical help, call 911 or go the nearest ER for evaluation if experiencing SI/HI. Patient verbalized understanding and acceptance of plan. 07/07/2024 Anxiety (ICD-10 - F41.9) Treatment options discussed. Encouraged counseling. Encouraged [facility] for nicotine dependence. Reviewed risks/benefits, major/common side effects, and alternatives of medication plan with patient, stated understanding and agreement with plan. Medication and allergy list reconciled. The patient was informed of contraindications of alcohol, THC use and side effects of any substances with medications. Antipsychotic Medication: We discussed the risks/benefits and side effects of medications. I stressed in particular side effects including but not limited to metabolic syndrome, weight gain, increased prolactin levels, tardive dyskinesia, QTc prolongation, neuroleptic malignant syndrome, excessive somnolence or confusion. Antidepressant Medication: We discussed the risks/benefits and side effects of medications. I stressed in particular side effects including but not limited to gastrointestinal problems, sexual dysfunction, serotonin syndrome, agitation, rare induction of wai, rare activation of suicidality. We discussed issues related to healthy weight, diet, and sleep hygiene. Discussed the heat related illness in psychotropic medication users and advised to take precautions to avoid heatstroke and heat exhaustion encouraged to increase fluids and use sunscreen. Discussed the cold related illness in psychotropic medication users and advised to take precautions to avoid adverse effects. Discussed the SE of nicotine and caffeine in sleep disturbance and anxiety. Start Zoloft 50mg oral am for depression, anxiety. Start Abilify 2mg oral HS for MDD. Educated pt on importance medication compliance. Encouragement and support provided. RTO in 2 weeks or PRN. Crisis text/hotline provided. Instructed to seek medical help, call 911 or go the nearest ER for evaluation if experiencing SI/HI. Patient verbalized understanding and acceptance of plan. 07/07/2024 Alba Andrews is a 43 y.o female presents in office to restart meds. Last seen in 2022. Pt is tearful, depressed, reports feeling helpless hopeless, passive SI denies plan or intent when the thoughts arise. Pt reports having financial and medical stressors. Adamantly denies current SI/HI plan or intent. Denies hallucinations. Pt reports she was recently denied disability for the third time. She reports she is f.u with PCP and neurology d.t having migraines. Pt also is having frequent bladder leakage, has hx of 2 bladder surgeries, reports PCP is aware. Pt reports she is unable to stay asleep because she frequently has to get up to use the bathroom, uses a cpap for sleep apnea. Is not seeing anyone for counseling. Pt on Amitriptyline from PCP for fibromyalgia pain. Treatment options discussed. Encouraged counseling. Encouraged CDC for nicotine dependence. Reviewed risks/benefits, major/common side effects, and alternatives of medication plan with patient, stated understanding and agreement with plan. Medication and allergy list reconciled. The patient was informed of contraindications of alcohol, THC use and side effects of any substances with medications. Antipsychotic Medication: We discussed the risks/benefits and side effects of medications. I stressed in particular side effects including but not limited to metabolic syndrome, weight gain, increased prolactin levels, tardive dyskinesia, QTc prolongation, neuroleptic malignant syndrome, excessive somnolence or confusion. Antidepressant Medication: We discussed the risks/benefits and side effects of medications. I stressed in particular side effects including but not limited to gastrointestinal problems, sexual dysfunction, serotonin syndrome, agitation, rare induction of wai, rare activation of suicidality. We discussed issues related to healthy weight, diet, and sleep hygiene. Discussed the heat related illness in psychotropic medication users and advised to take precautions to avoid heatstroke and heat exhaustion encouraged to increase fluids and use sunscreen. Discussed the cold related illness in psychotropic medication users and advised to take precautions to avoid adverse effects. Discussed the SE of nicotine and caffeine in sleep disturbance and anxiety. Start Zoloft 50mg oral am for depression, anxiety. Start Abilify 2mg oral HS for MDD. Educated pt on importance medication compliance. Encouragement and support provided. RTO in 2 weeks or PRN. Crisis text/hotline provided. Instructed to seek medical help, call 911 or go the nearest ER for evaluation if experiencing SI/HI. Patient verbalized understanding and acceptance of plan. Plan Of Treatment Medication Medication Name Sig Start Date Stop Date Notes ARIPiprazole 2 MG 1 tablet at bedtime Orally Once a day for 30 days 07/07/2024 Sertraline HCl 50 MG 1 tablet in the mor sylvester Orally Once a day for 30 days 07/07/2024 Treatment Notes Assessment Notes Cigarette nicotine dependenc e without complication Patient provided with [phone]-Now phone line. Next Appt Details Follow Up: 2 Weeks,prn, Reas on: Provider Name:Marisol Canales, 07/15/2024 10:00:00 AM, [address] [place], [id number], Provider Name:Hebert Reyes , 08/05/2024 03:15:00 PM, [address], [place], [id number], Progress Notes * FRANCOISJuliana WILKINSDOB:1980 (43 yo F)Acc No.[id number]:07/07/2024 Patient: Juliana MATOS Provider: REINALDO DahlHNP-BC :1980 A ge:43 Y S ex:Female Date:07/07/2024 Address:[facility] [address] [place], [id number] Pcp:Marisol Canales Check In:11:14 AM EST Subjective: * Chief Complaints: * F /u * HPI: A nxiety Screening: KHANH-7 (2018 Edition) F eeling nervous, anxious, or on edge N early every day N ot being able to stop or control worrying?Nearly every day W orrying too much about different things N early every day T rouble relaxing M ore than half the days B eing so restless that it is hard to sit still M ore than half the days B ecoming easily annoyed or irritable S everal days F eeling afraid as if something awful might happen N early every day T otal KHANH-7 Score 1 7 I f you checked any problems, how difficult have they made it for you to do your work, take care of things at home, or get along with other people? N ot difficult at all I nterpretation of Total ( 15 and over) Severe D epression screening: PHQ-9 L ittle interest or pleasure in doing things?Nearly every day F eeling down, depressed, or hopeless N early every day T rouble falling or staying asleep, or sleeping too much N early every day F eeling tired or having little energy N early every day P oor appetite or overeating S everal days F eeling bad about yourself or that you are a failure, or have let yourself or your family down N early every day T rouble concentrating on things, such as reading the newspaper or watching television S everal days M oving or speaking so slowly that other people could have noticed; or the opposite, being so fidgety or restless that you have been moving around a lot more than usual M ore than half the days T houghts that you would be better off or of hurting yourself in some way M ore than half the days (Consider Suicide Assessment Risk) T otal Score 2 1 I nterpretation S evere Depression H istory of Presenting Problem: c/o Anxiety w ith restlessness, with low energy, with excessive worry. c /o Depression w ith decreased concentration, with decreased energy, with difficulty sleeping, with feelings of being slowed down, with feelings of guilt, with feelings of worthlessness, with inability to function, with poor appetite, with sad mood, with suicidal thoughts, with isolative behavior. c /o Sleep disturbance w ith difficulty staying asleep. c /o Suicidal ideation w ith intermittent thoughts of self-harm.? Denies : Referral source. Denies : Anger management. Denies : Homicidal ideation. Denies : Mood lability. Denies : Obsessive thoughts. Denies : Psychosis. Denies : Substance abuse. S creening: [place] Suicide Severity Rating Scale (LF) D o you want to initiate with S creener form 1 . Wish to be : Have you wished you were or wished you could go to sleep and not wake up? N o 2 . Suicidal Thoughts: Have you actually had any thoughts of killing yourself? N o 6 . Suicide Behaviour: Have you ever done anything,started to do anything, or prepared to end your life? N o I nterpretation: L ow Risk * Medical History: * Social History: S afety: P atient feels safe in relationships: Yes. T obacco Use: T obacco Use/Smoking A re you interested in quitting? T hinking about quitting patient entered data T obacco use: c urrent smoker patient entered data W hen did you start smoking? 0 02/19/1997 patient entered data H ow often do you smoke cigarettes? e very day patient entered data H ow many cigarettes a day do you smoke? 6 -10 patient entered data H ow soon after you wake up do you smoke your first cigarette? 3 1-60 minutes patient entered data W hen did you start smoking? 0 02/06/1988 A dditional Findings: Tobacco User M oderate cigarette smoker (10-19 cigs/day) D rugs/Alcohol/Caffeine: D rugs H ave you used drugs other than those for medical reasons in the past 12 months? N o Caffeine I ntake: n one Do you smoke marijuana?: Denies. Do you drink alcohol?: No. CAGE-AID Questionnaire (2018 Edition) H ave you ever felt that you ought to cut down on your drinking or drug use? N o patient entered data H ave people annoyed you by criticizing your drinking or drug use? N o patient entered data H ave you ever felt bad or guilty about your drinking or drug use? N o patient entered data H ave you ever had a drink or used drugs first thing in the morning to steady your nerves or to get rid of a hangover? N o patient entered data C AGE-AID Score 0 I nterpretation N egative A IMS: A IMS B ase your answers off of the following code:?0 = None, 1 = Minimal, 2 = Mild, 3 = Moderate, 4 = Severe M uscles of Facial Expression: e.g., movements of forehead, eyebrow, periorbital area, cheeks; include frowning, blinking, smiling, grimacing 0 L ips and Perioral Area e.g., puckering, pouting, smacking 0 J aw e.g., biting, clenching, chewing, mouth opening, lateral movement 0 T ongue Rate only increase in movement both in and out of mouth. NOT inability to sustain movement 0 U pper (arms, wrists, hands, fingers) Include choreic movements, (i.e., rapid, objectively purposeless, Irregular, spontaneous), athetoid movements (i.e., slow, irregular, complex, serpentine). Do NOT include tremor (i.e., repetitive, regular, rhythmic) 0 L ower (legs, knees, ankles, toes) e.g., lateral knee movement, foot tapping, heel dropping, foot squirming, inversion and eversion of foot 0 N farhat, shoulders, hips e.g., rocking, twisting, squirming, pelvic gyrations 0 S everity of abnormal movements 0 I ncapacitation due to abnormal movements 0 A wareness of abnormal movements N o awareness - 0 C urrent problems with teeth and/or dentures??No - 0 D o you usually wear dentures? N o - 0 T otal 0 N utrition Assessment: A ssessment G ained or lost more than 10 lbs in the last 3 months N o D ecrease in food intake or appetite N o D ental issues N o E ating disorder behaviors N o * Medications: T akingOmeprazole 40 [...] EVERY DAY FOR 90 DAYS Amitriptyline HCl 10 MG Tablet 3 tablet at bedtime Oral Once a day Ketorolac Tromethamine 10 MG Tablet Oral Taking Omeprazole 40 mg Capsule Delayed Release [...] DAY FOR 90 DAYS Taking Amitriptyline HCl 10 MG Tablet 3 tablet at bedtime Oral Once a day Taking Ketorolac Tromethamine 10 MG Tablet Oral Not-Taking/PRNHYDROcodone-Acetaminophen 5-325 MG Tablet take 1 tab orally three times a day As Needed for pain for 4 days Oral hydroCHLOROthiazide 25 MG Tablet 1 tablet in the morning Oral Once a day predniSONE 20 MG Tablet Oral Medication List reviewed and reconciled with the patientNot-Taking/PRN HYDROcodone-Acetaminophen 5-325 MG Tablet take 1 tab orally three times a day As Needed for pain for 4 days Oral Not-Taking/PRN hydroCHLOROthiazide 25 MG Tablet 1 tablet in the morning Oral Once a day Not-Taking/PRN predniSONE 20 MG Tablet Oral Medication List reviewed and reconciled with the patient * Allergies: N ickel: AllergyCymbalta: nausea and vomiting - AllergyPenicillin: AllergyNaproxen: rash - Allergyno[Allergies Verified] Objective: * Vitals: W t:253.0lbs, Ht: 64.00 in, BMI:43.42Index, BP:123/82mm Hg, HR:86/min, RR:18/min, Pain scale:101-10, Oxygen sat %:98%, Wt-k.76 kg, Ht-cm: 162.56 cm, Body Surface Area: 2.27. * Examination: G eneral Examination: General appearance: a lert, pleasant, well-nourished and in no acute distress, female, obese, , cooperative, tearful. Neurologic: a lert and oriented, cooperative with exam, gait normal. Psych: a lert and oriented x 3, cooperative with exam, maintains good eye contact, with good judgement and insight, mood depressed, with no auditory or visual hallucinations, speech is clear and coherent, thought process is logical and goal directed without suicidal ideation or delusions. Assessment: * Assessment: 1. M ajor depression - F32.9 (Primary) 2 . C igarette nicotine dependence without complication - F17.210 3 . D ietary counseling - Z71.3 4 . E xercise counseling - Z71.82 5 . A nxiety - F41.9 Treatment options discussed. Encouraged counseling. Encouraged CDC for nicotine dependence. Reviewed risks/benefits, major/common side effects, and alternatives of medication plan with patient, stated understanding and agreement with plan. Medication and allergy list reconciled. The patient was informed of contraindications of alcohol, THC use and side effects of any substances with medications. Antipsychotic Medication: We discussed the risks/benefits and side effects of medications. I stressed in particular side effects including but not limited to metabolic syndrome, weight gain, increased prolactin levels, tardive dyskinesia, QTc prolongation, neuroleptic malignant syndrome, excessive somnolence or confusion. Antidepressant Medication: We discussed the risks/benefits and side effects of medications. I stressed in particular side effects including but not limited to gastrointestinal problems, sexual dysfunction, serotonin syndrome, agitation, rare induction of wai, rare activation of suicidality. We discussed issues related to healthy weight, diet, and sleep hygiene. Discussed the heat related illness in psychotropic medication users and advised to take precautions to avoid heatstroke and heat exhaustion encouraged to increase fluids and use sunscreen. Discussed the cold related illness in psychotropic medication users and advised to take precautions to avoid adverse effects. Discussed the SE of nicotine and caffeine in sleep disturbance and anxiety. Start Zoloft 50mg oral am for depression, anxiety. Start Abilify 2mg oral HS for MDD. Educated pt on importance medication compliance. Encouragement and support provided. RTO in 2 weeks or PRN. Crisis text/hotline provided. Instructed to seek medical help, call 911 or go the nearest ER for evaluation if experiencing SI/HI. Patient verbalized understanding and acceptance of plan. Plan: * Treatment: 2. C igarette nicotine dependence without complication Notes: Patient provided with [phone] phone line. 3. O thers Clinical Notes:Juliana is a 43 y.o female presents in office to restart meds. Last seen [id number]. Pt is tearful, depressed, reports feeling helpless hopeless, passive SIdenies plan or intent when the thoughts arise. Pt reports having financial andmedical stressors. Adamantly denies current SI/HI plan or intent. Denies hallucinations.Pt reports she was recently denied disability for the third time. She reportsshe is f.u with PCP and neurology d.t having migraines. Pt also is havingfrequent bladder leakage, has hx of 2 bladder surgeries, reports PCP is aware.Pt reports she is unable to stay asleep because she frequently has to get up touse the bathroom, uses a cpap for sleep apnea. Is not seeing anyone for counseling. Pt on Amitriptyline from PCP for fibromyalgia pain. * Procedure Codes: 4 004F PT TOBACCO SCREEN RCVD TLK * Follow Up: 2 Weeks,prn Care Plan: * Problems: * Billing Information: * Visit Code: 31937 Office Visit Est 20-29 minutes. * Procedure Codes: 4004F PT TOBACCO SCREEN RCVD TLK. Care Plan Details* * Sign off status: Completed true * Provider: STEPHANIE Dahl Date: 0 07/07/2024 Generated for Edmari ng/Noah/eTransmitting on: 0 07/14/2024 07:38 AM EDT History and Physical Notes * HPI (History of Present Illness) Category Sub-Category Detail Notes Category Not es History of Presenting Problem Referral source Anxiety with restlessness, w ith low energy, with excessive worry Depression with decreased padma ntration, with decreased energy, with difficulty sleeping, with feelings of being slowed down, with feelings of guilt, with feelings of worthlessness, with inability to function, with poor appetite, with sad mood, with suicidal thoughts, with isolative behavior Substance abuse Anger management Suicidal ideation with intermittent th oughts of self-harm Homicidal ideation Sleep disturbance with difficulty stay ing asleep Psychosis Mood lability Obsessive thoughts Depression screening PHQ-9 Little inte rest or pleasure in doing things: Nearly every day Feeling down, depressed, or hopeless: Ne mel every day Trouble falling or staying asleep, or sl eeping too much: Nearly every day Feeling tired or having little energy: N early every day Poor appetite or overeating: Several day s Feeling bad about yourself o r that you are a failure, or have let yourself or your family down: Nearly every day Trouble concentrating on thi ngs, such as reading the newspaper or watching television: Several days Moving or speaking so slowly that other people could have noticed; or the opposite, being so fidgety or restless that you have been moving around a lot more than usual: More than half the days Thoughts that you would be b josué off or of hurting yourself in some way: More than half the days (Consider Suicide Assessment Risk) Total Score: 21 Interpretation: Severe Depression Anxiety Screening KHANH-7 (2018 Edition) Feeling n ervous, anxious, or on edge: Nearly every day Not being able to stop or control worryi ng: Nearly every day Worrying too much about different things : Nearly every day Trouble relaxing: More than half the day s Being so restless that it is hard to sit still: More than half the days Becoming easily annoyed or irritable: Se veral days Feeling afraid as if something awful chasity ht happen: Nearly every day Total KHANH-7 Score: 17 If you checked any problems, how difficult have they made it for you to do your work, take care of things at home, or get along with other people?: Not difficult at all Interpretation of Total: (15 and over) S evere Screening [place] Suicide Sev erity Rating Scale (LF) Do you want to initiate with: Screener form 1. Wish to be : Have you wished you were or wished you could go to sleep and not wake up?: No 2. Suicidal Thoughts: Have you actually had any thoughts of killing yourself?: No 6. Suicide Behaviour: Have you ever done anything,started to do anything, or prepared to end your life?: No Interpretation:: Low Risk Examination Category Sub-Category Detail Notes Category Not es General Examination General appearance: alert, p leasant, well-nourished and in no acute distress, female, obese, , cooperative, tearful Neurologic: alert and oriented, cooperative with exam, gait normal Psych: alert and oriented x 3, cooperative with exam, maintains good eye contact, with good judgement and insight, mood depressed, with no auditory or visual hallucinations, speech is clear and coherent, thought process is logical and goal directed without suicidal ideation or delusions
--- OUTSIDE RECORDS SUMMARY | 2024-07-08 09:00 | XMS_ITS | Encounter Summary ---
Author Organization [employer] Address [id number] [address] [place] [address] Care Team Providers Care Technology Administrator Name Role Phone Ivon Wayne EMPLOYEE REPRESENTATIVE-CARTRIDGE LOADING OPERATOR Primary Care Provider [phone] Reason for Referral * Medication Prior Authorization - Pending Review Specialty Diagnoses / Procedures Referred By Connie dowling Referred To Contact Diagnoses Migraine with aura and without status migrainosus, not intractable Freedom Hsu PA-C [address] [facility] [address] [place] [address] Phone: tel: fax: Referral ID Status Reason Start Date Expiration Date V isits Requested Visits Authorized [id number] Pending Review 1 Reason for Visit * Reason Comments New Patient Patient is here toda y as a new patientDx frequent headachesCerebral aneurysm * Consultation (Routine) - Pending Review Specialty Diagnoses / Procedures Referred By Connie dowling Referred To Contact Neurology Diagnoses Frequent headaches Marisol Canales MD [address] [place] [address] Phone: tel: fax: Gaurav Henson MD [address] [place] [address] Phone: tel: fax: Referral ID Status Reason Start Date Expiration Date Visits Requested Visits Authorized [id number] Pending Review Specialty Services Required 06/10/2024 06/10/2025 1 1 Encounter Details Date Type Department Care Team (Late st Contact Info) Description 07/08/2024 9:00 AM EDT Office Visit [facility] [place] [address] Freedom Hsu, PAJamaC [address] [facility] [address] [place] [id number] Migraine with aura and without status migrainosus, not intractable (Primary Dx); Frequent headaches; Bilateral occipital neuralgia; History of cerebral aneurysm repair Social History Tobacco Use Types Packs/Day Years [...] got money to buy more. Never True 07/08/2024 Within the past 12 months th e food we bought just didn't last and we didn't have money to get more. Never True 07/08/2024 Purpose - Life Answer Date Recorded Purpose and direction in life Unknown Comments No Sex and Gender Information Value Date Recorded Sex Assigned at Not on file Legal Sex Female 11:27 AM EDT Gender Identity Not on file Sexual Orientation Not on file documented as of this encounter Last Filed Vital Signs Vital Sign Reading Time Taken Comments Blood Pressure 121/81 07/08/2024 9:04 AM EDT Pulse 97 07/08/2024 9:04 AM EDT Temperature - - Respiratory Rate - - Oxygen Saturation - - Inhaled Oxygen Concentration - - Weight 114.3 kg (252 lb) 07/08/2024 9:04 AM EDT Height 162.6 cm (5' 4 ) 07/08/2024 9:04 AM EDT Body Mass Index 43.26 07/08/2024 9:04 AM EDT documented in this encounter Progress Notes * Freedom Hsu PA-C - 07/08/2024 9:00 AM EDT [facility] Office Note 07/07/2024 12:57 PM Patient info: Juliana Pérez is a 43 y.o. female Account No.: [id number] Acct: : 1980 PCP: SALVATORE FERREIRA Chief Complaint: Patient, 43 year old right hand dominant female, presents today for initial Neurological evaluationregarding headaches. Referred by Dr. Parker HODGSON Juliana is present in the office today by herself. HPI: Headache Hx: Onset of headaches was some years ago. Headache Characteristics: - Current Frequency: 3-4 per week - Timing: onset varies - Duration: several hours - Location: frontal/across the eyes, occipital - Quality: pounding/throbbing - Intensity: ranges from mild-severe - Aura: (-) - Associated sxs.: light sensitivity, sound sensitivity, sometimes nausea - Autonomic sxs.: No associated lacrimation, asymmetric pupil dilation/constriction, scleral injection, ptosis, lateralized nasal congestion, or lateralized forehead sweating - Complicated sxs.: No associated loss of consciousness, confusional episodes/delirium, dysarthria,aphasia, paresthesias, or focal/lateralized weakness Contributing Factors: (+) hx of significant head injury/trauma: (-) hx of CREDIT CONTROL CLERK infection: (+) hx of stroke or cerebrovascular malformation: (-) hx of intracranial mass/tumor/cyst/malformation: (+) hx of anxiety/depression/mood disorder: Caffeine Consumption: - none Family Hx: (+) known family member/s with hx of recurrent HANNA/migraines: mother (+) known family member/s with hx of cerebral aneurysm: (-) known family member/s with hx of intracranial mass/tumor/cyst/malformation: Difficulty with gait or recurrent falls: none Juliana does not wear corrective eye lenses. Most recent eye exam was several years ago. Currently taking Amitriptyline 30 mg HS in treatment of Fibromyalgia. This dose will most likely be titrated further in the near future. Also, has an office visit with Pain Management later this week. Current preventative HANNA/migraine medication: Amitriptyline Preventative med/s previously tried include: Preventative med/s not indicated include: Current abortive/symptomatic relief HANNA/migraine medication: Tylenol Abortive/Symptomatic relief med/s previously tried include: Abortive/Symptomatic relief med/s not indicated include: Triptans (cerebral aneurysm) Previous Studies: 07/07/24: CT Head without contrast - No acute intracranial abnormality 07/07/24: CTA Head - There is a right sided craniotomy with clamping of the aneurysm. Postsurgical changes seen. No aneurysm is identified on current examination. - No evidence of significant stenosis or occlusion of the large vessels. Past Medical Hx: See EMR Social Hx: Tobacco: yes, 02/08-02/07 ppd smoker ETOH: none Illicit substances: none Family Hx: Mother: hypothyroidism, swallowing difficulties Father: see EMR Siblings: alcohol abuse Surgical Hx: See EMR Allergies: See EMR Review of Systems: Constitutional: Negative for fever, chills, sweats, or unintentional weight loss Eyes: Negative HENT: Negative Cardiovascular: Negative for chest pain and palpitations Respiratory: Negative for cough and shortness of breath Gastrointestinal: Negative for nausea, vomiting, abdominal pain and diarrhea Genitourinary: Negative for dysuria, urgency, frequency, or hematuria Musculoskeletal: Negative for myalgias or joint swelling Skin: Negative for skin rash Neurological: - as noted in the HPI Psychiatric/Behavioral: Negative Endocrine: Negative Hem/Onc: Negative Allergy/immunology: Negative The remainder of ROS is negative Vitals: BP: 121/81 HR: 97 Weight: 114.3 kg Physical Exam: General: well groomed, appears stated age Neurological Exam: The patient is awake, alert, and attentive Speech and language are normal Normal affect, with normal orientation and cognition EOMI, PERRL, No gross visual field deficits Face is symmetric, Tongue protrudes midline Palate rises symmetrically with uvula midline Shoulder shrug is strong bilaterally Nose to finger testing is without dysmetria Upper Extremity Drift is (-) Fine motor skills are approximately equal in each hand Tremor: (-) Sensation is intact and symmetric in the extremities bilaterally DTR's are 2+ throughout Rodríguez's sign (-) bilaterally Strength throughout the Upper Extremities is 5/5 Strength throughout the Lower Extremities is 5/5 Muscle Tone throughout the extremities is normal Romberg is (-) Gait is steady with normal base, normal stride and bilateral arm swing Palpation near the greater occipital notch induces pain/discomfort bilaterally ASSESSMENT: Juliana is a 43 year old right hand dominant female with a hx of asthma, depression, endometriosis, Factor V Leiden mutation (heterozygous), hyperlipidemia, HTN, GERD, RA, fibromyalgia, and cerebral aneurysm s/p clamping who has frequent headaches, often with features of migraine with aura. There is also a component of bilateral occipital neuralgia. PLAN: Continue titration of Amitriptyline for HANNA/migraine prevention Start Nurtec ODT 75 mg for abortive/symptomatic migraine relief Bilateral ONB via Pain Management may be useful/helpful in providing relief HANNA log is recommended Identification and avoidance of personal HANNA/migraine triggers discussed Trying to stay on a regular sleep and eating schedule, staying well hydrated, and working on stressmanagement to help reduce HANNA/migraine frequency discussed Follow up in the office in 2-3 months Electronically Signed by: Freedom Hsu PA-C 07/08/24 1029 documented in this encounter Plan of Treatment Upcoming Encounters Date Type Department Care Team (Late st Contact Info) Description 10/08/2024 9:00 AM EDT Office Visit [facility] [address] Freedom Hsu PA-C [address] [facility] [address] [place] [address] documented as of this encounter Visit Diagnoses Diagnosis Migraine with aura and without status migrainosus, not intractable- Primary Frequent headaches Bilateral occipital neuralgia History of cerebral aneurysm repair Other postprocedural status documented in this encounter Additional Health Concerns Assessment Noted Time PHQ-9 Depression Total Score: 4 07/06/19 23 2:10 PM EDT documented as of this encounter Care Teams Technology Administrator Relationship Specialty Start Date End Date Ivon Wayne APRN-CARTRIDGE LOADING OPERATOR [address] [place] [address] PCP - General Family Medicine 11/12/23 documented as of this encounter
--- NOTE | 2024-07-14 07:37 | CT_ITS ---
The [address] [address] Patient Name: ARACELI FRANCOIS MRN: [id number] date: 1980 Sex: F Assigned Patient Location: CT Current Patient Location: CT Accession/Order Number: [id number] Exam Date: 07/14/2024 11:38 Report Date: 07/14/2024 11:45 At the request of: RHEA SOMMER NP Procedure: CT lumbar spine wo con CT LUMBAR SPINE WITHOUT CONTRAST WITH 3-D RECONSTRUCTIONS COMPARISON: CT abdomen 07/28/2021 CLINICAL DATA: Chronic left leg numbness for several years. Spiral axial unenhanced images were obtained through the lumbar spine. Sagittal, coronal and 3-D volume rendered reconstructions were reviewed. This CT exam was performed using one or more following dose reduction techniques: Automated exposure control, adjustment of the mA and/or kV according to patient size, or use of iterative reconstruction technique. Subtle levoscoliotic curvature may be positional. There are no acute compression fractures. There is minimal anterolisthesis of L5 on S1. This is secondary to bilateral L5 spondylolysis. The disc spaces are uniform. There is no significant facet hypertrophy. There is minor disc osteophytic bulging at L4-5 and the lumbosacral junction. There is no significant associated thecal sac effacement though there is minor inferior foraminal encroachment at L4-5 bilaterally. The SI joints are maintained. There are no paraspinal soft tissue abnormalities. No obstructive uropathy or stone disease is noted. There is mild atherosclerotic plaque at the aorta. CT/CT lumbar spine wo con IMPRESSION: L5 SPONDYLOLYSIS WITH MINIMAL ASSOCIATED LUMBOSACRAL SPONDYLOLISTHESIS. MINOR LOWER LUMBAR DEGENERATIVE CHANGE. NO OTHER ACUTE FINDINGS. Impression dictated by: Shakila Kemp M.D. 07/14/2024 11:45 AM Dictation Location: [place] [address] Electronically authenticated by: [id number] Y Date: 07/14/2024 11:45
--- OUTSIDE RECORDS SUMMARY | 2024-07-14 07:38 | XMS_ITS | Encounter Summary ---
Author Organization [employer] tem Address [facility] [id number] [address] [place] [address] Care Team Providers Care Mortgage Loan Officer Originator Name Role Phone Ivon Wayne WHITE SHOE EXAMINER-UTILITY BILL COLLECTOR Primary Care Provider +1- [phone] Encounter Details Date Type Department Care Team (Late Contact Info) Description 05/17/2022 Orders Only [facility] [address] [place] [phone] Jessie Corral MA Social History Tobacco Use Types Packs/Day Years Used Date Smoking Tobacco: Every Day Cigarettes 0.5 23 Vaping/E-cigarettes Smokeless Tobacco: Never Alcohol Use Standard Drinks/Week Comments No 0 (1 standard drink = 0.6 oz pur e alcohol) PHQ-2 Answer Date Recorded Total Score 15 12/28/2021 Childcare Answer Date Recorded Childcare Unknown 07/17/2018 Employment Answer Date Recorded Employment Unknown 07/17/2018 Purpose - Life Answer Date Recorded Purpose and direction in life Unknown Comments No Sex and Gender Information Value Date Recorded Sex Assigned at Not on file Legal Sex Female 11:27 AM EDT Gender Identity Not on file Sexual Orientation Not on file documented as of this encounter Plan of Treatment Upcoming Encounters Date Type Department Care Team (Late Contact Info) Description 10/08/2024 9:00 AM EDT Office Visit [facility] [place] [address] Freedom Hsu, GABC [address] [facility], [facility] [address] [place] [phone] documented as of this encounter Visit Diagnoses Not on filedocumented in this encounter Additional Health Concerns Assessment Noted Time PHQ-9 Depression Total Score: 15 12/28/ 022 7:00 AM EST documented as of this encounter Care Teams Mortgage Loan Officer Originator Relationship Specialty Start Date End Date Ivon Wayne APRN-UTILITY BILL COLLECTOR [address] [place] [address] PCP - General Family Medicine 11/12/23 documented as of this encounter
--- OUTSIDE RECORDS SUMMARY | 2024-07-14 07:38 | XMS_ITS | Encounter Summary ---
Author Organization [employer] Address [facility] [id number] [address] [place] [address] Care Team Providers Care Sand Digger Name Role Phone Ivon Wayne EXECUTIVE CANDIDATE DEVELOPER-TEXTILE CONVERTER Primary Care Provider +1- [phone] Encounter Details Date Type Department Care Team (Late Contact Info) Description 06/01/2022 Telephone [facility] [address] [place] [phone] Jessie Corral MA Social History Tobacco Use [...] Upcoming Encounters Date Type Department Care Team ([facility] Contact Info) Description 10/08/2024 9:00 AM EDT Office Visit [facility] [place] [address] Freedom Hsu G[facility] [address] [facility], [facility] [address] [place] [address] documented as of this encounter Visit Diagnoses Not on filedocumented in this encounter Additional Health Concerns Assessment Noted Time PHQ-9 Depression Total Score: 15 12/28/ 022 7:00 AM EST documented as of this encounter Care Teams Sand Digger Relationship Specialty Start Date End Date Ivon Wayne APRN-TEXTILE CONVERTER [address] [place] [address] PCP - General Family Medicine 11/12/23 documented as of this encounter
--- OUTSIDE RECORDS SUMMARY | 2024-07-14 07:38 | XMS_ITS | Encounter Summary ---
Author Organization [employer] Address [facility] [id number] [address] [place] [address] Care Team Providers Care Rangeland Management Specialist Name Role Phone Ivon Wayne CLOTH WORKER-HOME PARAPROFESSIONAL Primary Care Provider +1- [phone] Reason for Visit * Reason Comments Med Refill Encounter Details Date Type Department Care Team (Late st Contact Info) Description 04/17/2023 Refill [facility] [address] [address] Eren Hester MD [address] [id number] Fibromyalgia Social History Tobacco Use Types Packs/Day Years Used Date Smoking Tobacco: Every Day Cigarettes 0.3 30 Smokeless Tobacco: Never Comments:Has a patch and [...] got money to buy more. Never True 10/16/2022 Within the past 12 months th e food we bought just didn't last and we didn't have money to get more. Never True 10/16/2022 Purpose - Life Answer Date Recorded Purpose [...] AM EDT Office Visit [facility] [place] [address] [place] [address] Freedom Hsu, PA-C [address] [facility] [address] [place] [phone] documented as of this encounter Visit Diagnoses Diagnosis Fibromyalgia Unspecified myalgia and myositis documented in this encounter Additional Health Concerns Assessment Noted Time PHQ-9 Depression Total Score: 4 07/06/19 23 2:10 PM EDT documented as of this encounter Care Teams Rangeland Management Specialist Relationship Specialty Start Date End Date Ivon Wayne APRN-FNP [address] [place] [address] PCP - General Family Medicine 11/12/23 documented as of this encounter
--- OUTSIDE RECORDS SUMMARY | 2024-07-14 07:38 | XMS_ITS | Encounter Summary ---
Author Organization [employer] tem Address [facility] [place][id number] [address] [place] [address] Care Team Providers Care Manuscripts Archivist Name Role Phone Ivon Wayne INSIDE SALES ACCOUNT MANAGER-INGOT HEADER Primary Care Provider +1- [phone] Reason for Visit * Reason Comments Med Refill Encounter Details Date Type Department Care Team (Late st Contact Info) Description 03/27/2023 Refill [facility] [address] [address] Eren Hester MD [address] [phone] Fibromyalgia Social History Tobacco Use Types Packs/Day [...] AM EDT Office Visit [facility] [place] [address] [place] [address] Freedom Hsu, PA-C [address] [facility] [address] [place] [phone] documented as of this encounter Visit Diagnoses Diagnosis Fibromyalgia Unspecified myalgia and myositis documented in this encounter Additional Health Concerns Assessment Noted Time PHQ-9 Depression Total Score: 4 07/06/19 23 2:10 PM EDT documented as of this encounter Care Teams Manuscripts Archivist Relationship Specialty Start Date End Date Ivon Wayne APRN-FNP [address] [place] [address] PCP - General Family Medicine 11/12/23 documented as of this encounter
--- OUTSIDE RECORDS SUMMARY | 2024-07-14 07:38 | XMS_ITS | Encounter Summary ---
Author Organization [facility] Address [address] [place] [address] Care Team Providers Care Machinist Class B Name Role Phone Sharmin Poole Unavailable [phone] Encounter Details Date Type Department Care Team (Late Contact Info) Description 06/06/2024 Results Follow-Up [facility] [address] [facility] [address] [place] [address] Faustina Williamson MD [address] [facility] [address] [place] [address] Social History Tobacco Use Types Packs/Day Years Used Date Smoking Tobacco: Every Day Cigarettes Smokeless Tobacco: Never Comments Unknown Sex and Gender Information Value Date Recorded Sex Assigned at Female 05/21/2024 10:51 AM EDT Legal Sex Female 11:42 AM EDT Gender Identity Female 05/21/2024 10:51 AM EDT Sexual Orientation Not on file documented as of this encounter Plan of Treatment Upcoming Encounters Date Type Department Care Team (Late st Contact Info) Description 07/31/2024 1:15 PM EDT Office Visit [facility] [address] [facility] [address] [place] [address] Phani Verduzco MD [address] [facility] [address] [place] [address] documented as of this encounter Visit Diagnoses Not on filedocumented in this encounter Care Teams Machinist Class B Relationship Specialty Start Date End Date Sharmin Poole PA PCP - [facility] CREDIT RISK ANALYST 08/06/23 documented as of this encounter
--- OUTSIDE RECORDS SUMMARY | 2024-07-14 07:38 | XMS_ITS | Encounter Summary ---
Author Organization [employer] Address [facility] [place][id number] [address] [place] [address] Care Team Providers Care Mark Up Designer Name Role Phone Ivon Wayne FROZEN FOOD DEPARTMENT MANAGER-NEWSWRITER Primary Care Provider [phone]- [phone] Reason for Visit * Reason Onset Date Comments change of surgery date 04/03/2022 Encounter Details Date Type Department Care Team (Late st Contact Info) Description 04/03/2022 Telephone [facility] [address] [place] [address] Jessie Corral MA change of surgery date Social History Tobacco Use Types Packs/Day Years [...] on file Sexual Orientation Not on file COVID-19 Exposure Response Date Recorded In the last month, have you been in contact with someone who was confirmed or suspected to have Coronavirus / COVID-19? No / Unsure 03/31/2022 12:48 PM EST documented as of this encounter Miscellaneous Notes * Telephone Encounter - Jessie Corral MA - 04/03/2022 11:55 AM EST I spoke to Juliana documented in this encounter Plan of Treatment Upcoming Encounters Date Type Department Care Team (Late st Contact Info) Description 10/08/2024 9:00 AM EDT Office Visit [facility] [place] [address] [place] [phone] Freedom Hsu, PA-C [address] [place], [facility] [address] [place] [address] documented as of this encounter Visit Diagnoses Not on filedocumented in this encounter Additional Health Concerns Assessment Noted Time PHQ-9 Depression Total Score: 15 022 7:00 AM EST documented as of this encounter Care Teams Mark Up Designer Relationship Specialty Start Date End Date Ivon Wayne APRN-ALEXA [address] [place], [place] [phone] PCP - General Family Medicine 11/12/23 documented as of this encounter
--- OUTSIDE RECORDS SUMMARY | 2024-07-14 07:38 | XMS_ITS | Clinical Summary ---
Author Organization [facility] Address [address] [place] [address] Care Team Providers Care Hog Trader Name Role Phone Sharmin Poole Unavailable Allergies Active Allergy Reactions Criticality Noted Date Comments Duloxetine Hcl 06/02/2024 Naproxen 06/02/2024 Nickel 06/02/2024 Penicillins 06/02/2024 Medications amLODIPine (Norvasc) 10 MG tablet Take by mouth Daily Active omeprazole (PriLOSEC) [address] capsule Take 40 mg by mouth in the morning. Take before meals. Do not crush or chew. Active omega-3 (FISH OIL) 300 MG capsule Take by mouth Daily Active atorvastatin (Lipitor) 40 MG tablet Take 40 mg by mouth Daily Active losartan (Cozaar) 50 MG tablet Take by mouth Active amitriptyline (Elavil) 25 MG tablet Take by mouth at bedtime Active Active Problems Problem Noted Date Diagnosed Date Mixed incontinence 10/16/2022 Overview (06/02/2024): Factor 5 Leiden mutation-trait-- Dr Jimenez did [...] day. Plan: Renal bladder ultrasound. Cystoscopy urodynamics [facility] bladder solution. Family history of cerebrovas cular accident (CVA) due to aneurysm 03/16/2022 Overview (06/02/2024): Added automatically from request for surgery [id number] Cerebral aneurysm 12/28/2021 Calculus of gallbladder with out cholecystitis without obstruction 04/07/2019 Dysphagia 06/08/2016 Endometriosis 06/08/2016 Factor 5 Leiden mutation, heterozygous 7 Fibromyalgia 06/08/2016 Gastroesophageal reflux disease 06/08/2016 Migraine 06/08/2016 Seizures 06/08/2016 Encounters Date Type Department Care Team Description 06/06/2024 Telephone [facility] [address] [place] [address] Charu Bhat LPN Results 06/06/2024 Results Follow-Up [facility] [address] [place] [address] Faustina Williamson MD 06/02/2024 10:20 AM EDT Office Visit [facility] [address] [place] [address] Faustina Williamson MD Melanocytic nevus of face, other location (Primary Dx); Neoplasm of unspecified behavior of bone, soft tissue, and skin 06/02/2024 Bamboo flowsheet [facility] [address] [place] [address] Faustina Williamson MD 06/02/2024 Travel from Last 3 Months Social History Tobacco Use Types Packs/Day Years Used Date Smoking Tobacco: Every Day Cigarettes Smokeless Tobacco: Never Tobacco Cessation:Ready to Q uit: Not Asked; Counseling Given: Not Answered Comments Unknown Sex and Gender Information Value Date Recorded Sex Assigned at Female 05/21/2024 10:51 AM EDT Legal Sex Female 11:42 AM EDT Gender Identity Female 05/21/2024 10:51 AM EDT Sexual Orientation Not on file Plan of Treatment Upcoming Encounters Date Type Department Care Team (Late st Contact Info) Description 07/31/2024 1:15 PM EDT Office Visit [facility] [address] [place] [address] Phani Verduzco MD [address] [place] [address] Health Maintenance Due Date Last Done Comments CT Colonography 1978 FIT-DNA 1978 FIT 1978 FOBT 1980 Sigmoidoscopy 1978 Pap Smear 09/05/1999 Cervical Cancer Screening 2008 HPV/Cotest 2008 Mammogram 07/19/2021 07/19/2020 Influenza Vaccine (Season Ended) 2024 Colonoscopy 12/30/2033 12/31/2023 Colorectal Cancer Screening 12/30/2033 Procedures Procedure Name Priority Date/Time Associated Diagnosis Comments SKIN / NAIL BIOPSY Routine 06/02/2024 10 :56 AM EDT Neoplasm of unspecified behavior of bone, soft tissue, and skin SKIN / NAIL BIOPSY Routine 06/02/2024 10 :55 AM EDT Neoplasm of unspecified behavior of bone, soft tissue, and skin SKIN / NAIL BIOPSY Routine 06/02/2024 10 :52 AM EDT Neoplasm of unspecified behavior of bone, soft tissue, and skin ZZDERMATOPATHOLOGY EXAM UNORDERABLE Routine 06/02/2024 12:00 AM EDT Melanocytic nevus of face, other location Neoplasm of unspecified behavior of bone, soft tissue, and skin DERMATOPATHOLOGY EXAM Routine 06/02/2024 12:00 AM EDT Neoplasm of unspecified behavior of bone, soft tissue, and skin from Last 3 Months Results * Lesion biopsy (06/02/2024 10:56 AM EDT) Narrative Lucinda Frias MA - 06/02/2024 10:56 AM EDT Type of biopsy: tangential Informed consent: discussed [...] taken Amount of lidocaine used: 1.0 cc Faustina Williamson MD DERM PROCEDURE ORDERABLES [facility] al Result * Lesion biopsy (06/02/2024 10:55 AM EDT) Narrative Lucinda Frias MA - 06/02/2024 10:55 AM EDT Type of biopsy: tangential Informed consent: discussed [...] taken Amount of lidocaine used: 1.0 cc Faustina Williamson MD DERM PROCEDURE ORDERABLES Fin al Result * Lesion biopsy (06/02/2024 10:52 AM EDT) Narrative Lucinda FriasMICHELL - 06/02/2024 10:52 AM EDT Type of biopsy: tangential Informed consent: discussed [...] taken Amount of lidocaine used: 1.0 cc Result [facility] Faustina Williamson MD DERM PROCEDURE ORDERABLES Fin al Result * Dermatopathology exam (06/02/2024 12:00 AM EDT) SPECIMEN TYPE --- SPECIMEN: VERTEX OF SCALP --- [facility] ICD10 Code L82.0 [employer] PROTOCOL F - FLAT [facility] Final Diagnosis 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 COMMENT: There are histologic features suggestive of trauma or irritation at this site. Areas of reactive keratinocyte atypia are noted. Monitoring of this site for persistence or recurrence is recommended. This material was reviewed with Dr. Bowers. [facility] Gross Text [facility] Microscopic Description Microscopic examination performed. [facility] SPECIMEN TYPE --- SPECIMEN: LT OCCIP SCALP --- [facility] ICD10 Code C44.42 [facility] PROTOCOL F - FLAT [facility] Final Diagnosis SQUAMOUS CELL CARCINOMA, WELL-DIFFERENTI ATED, INVASIVE, WITH KERATOACANTHOMA -LIKE FEATURES. [facility] Gross Text [facility] Microscopic Description Microscopic examination performed. 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 [facility] Gross Text [facility] Microscopic Description Microscopic examination performed. [facility] CPT 30556*3 [facility] Skin (tissue) specimen (specimen) Topography unknown / Unknown 06/02/2024 10:52 AM EDT Comment:Differential Diagnos is: prurigo vs BCC vs scar Check Margins: No Size of lesion: 1.0 x 0.7 cm Skin (tissue) specimen (specimen) Topography unknown / Unknown 06/02/2024 10:55 AM EDT Comment:Differential Diagnos is: SCC vs inflamed nevus Check Margins: No Size of lesion: 0.7 x 0.7 cm Skin (tissue) specimen (specimen) Topography unknown / Unknown 06/02/2024 10:56 AM EDT Comment:Differential Diagnos is: inflamed nevus Check Margins: No Size of lesion: 0.9 x 0.7 cm us Faustina Williamson MD LAB PATHOLOGY ORDERABLES Dali silva Result [facility] from Last 3 Months Insurance DANNI [employer] [place] Care Teams Hog Trader Relationship Specialty Start Date End Date Sharmin Poole PA PCP - [facility] DATACAP DEVELOPER 08/06/23
--- OUTSIDE RECORDS SUMMARY | 2024-07-14 07:39 | XMS_ITS | Clinical Summary ---
Author Organization [employer] [facility] tem Address [id number] [address] [place] [address] Care Team Providers Care Integration Analyst Name Role Phone Ivon Wayne ENTERPRISE SALES PERSON-UPPER TIER Primary Care Provider +1- [phone] Allergies Active Allergy Reactions Criticality Noted Date Comments Duloxetine Vomiting Medium 12/28/2021 Naproxen Hives High 06/08/2016 Nickel 08/04/2018 Penicillins Shortness Of Breath,Rash High 03/20/2016 Medications omeprazole (PriLOSEC) 40 mg capsule Take 1 capsule (40 mg total) by mouth every morning before breakfast. Active amLODIPine (NORVASC) 5 mg tabletIndications :hypertension Take 2 tablets (10 mg total) by mouth nightly Indications: high blood pressure. Active losartan (COZAAR) 50 mg tablet Take 2 tablets (100 mg total) by mouth nightly. 022 Active atorvastatin (LIPITOR) 20 mg tablet Take 2 tablets (40 mg total) by mouth in the morning. 023 Active omega 3-zgh-xlp-fish oil (FISH OIL) 300-1,000 mg capsule,delayed release(DR/EC) Take 1 capsule by mouth in the morning. 023 Active tiZANidine (ZANAFLEX) 2 mg tabletIndications :Fibromyalgia One tab at 8:00 p.m.each night 90 tablet 1 023 Active solifenacin (VESICARE) 5 mg tablet Take 1 tablet (5 mg total) by mouth in the morning. 30 tablet 4 024 Active bisacodyL (DULCOLAX, BISACODYL,) 5 mg EC tabletIndications :Encounter for screening colonoscopy Please see instructional sheet given by physicians office. 2 tablet 024 Active hydroCHLOROthiazi de (HYDRODIURIL) 25 mg tablet Take 1 tablet (25 mg total) by mouth daily. 024 Active amitriptyline (ELAVIL) 10 mg tablet Take 3 tablets (30 mg total) by mouth nightly. at bedtime 025 Active rimegepant (NURTEC ODT) 75 mg disintegrating tabletIndications :Migraine with aura and without status migrainosus, not intractable Dissolve 1 tablet (75 mg total) on tongue as needed (migraine). Maximum of 1 dose per 24 hours 16 tablet 5 025 Active amitriptyline (ELAVIL) 50 mg tabletIndications :Fibromyalgia One capsule at 8 PM each night 90 tablet 1 023 2024 Discontinued Active Problems Problem Noted Date Diagnosed Date Mixed incontinence urge and stress 11/28/2022 Mixed stress and urge urinary incontinence 10/16 Overview (04/25/2023): Factor 5 Leiden mutation-trait-- Dr Jimenez did [...] day. Plan: Renal bladder ultrasound. Cystoscopy urodynamics [facility] bladder solution. Assessment & Plan (04/25/2023 12:51 PM EDT): No constipation no dry mouth. Will start her on 5 mg VESIcare. Refer her to Dr. Engle. Certainly made need some urodynamic study as well. Deferred to his evaluation and management. Family history of cerebrovas cular accident (CVA) due to aneurysm 03/16/2022 Overview (03/16/2022): Added automatically from request for surgery [id number] Cerebral aneurysm 12/28/2021 Calculus of gallbladder with out cholecystitis without obstruction 04/07/2019 Seizures 06/08/2016 Factor 5 Leiden mutation, heterozygous 7 Fibromyalgia 06/08/2016 Migraine 06/08/2016 Endometriosis 06/08/2016 Gastroesophageal reflux disease 06/08/2016 Dysphagia 06/08/2016 Encounters Date Type Department Care Team Description 07/08/2024 9:00 AM EDT Office Visit [facility] [place] [id number] Freedom Hsu, VANIA Migraine with aura and without status migrainosus, not intractable (Primary Dx); Frequent headaches; Bilateral occipital neuralgia; History of cerebral aneurysm repair 07/08/2024 Telephone [facility] Neurology, A Department of [facility] [address] [place] [address] Janis Mckinley 07/08/2024 Travel 07/03/2024 9:59 AM EDT - 07/03/2024 11:59 PM EDT Hospital Encounter [facility] [address] [place] [address] Frequent headaches Discharge Disposition: Home 07/03/2024 9:58 AM EDT Hospital Encounter [facility] [address] [place] [address] Frequent headaches Discharge Disposition: Home 07/03/2024 Travel 06/16/2024 Telephone [facility] Neurology, A Department of [facility] [address] [place] [address] Christy Warner Question appointment 06/05/2024 Travel 05/29/2024 Travel 05/15/2024 Travel from Last 3 Months Immunizations Immunization Administration Dates Next Due Tdap 09/28/2018 Family History Medical History Relation Name Comments Alcohol abuse Brother 2 Deondre Arauz Years ago Anesthesia problems Father Keith Arauz prolong ed emergence Arthritis Father Keith Arauz Bleeding Disorder Father Keith Arauz Blood Clots Father Keith Arauz Diabetes Father Keith Arauz Heart attack Father Keith Arauz Heart disease Father Keith Arauz High Cholesterol Father Keith Arauz Hypertension Father Keith Arauz Hypothyroidism Mother Other Mother Swallowing problems/Heartburn Swallowing difficulties Mother Thyroid Issues Mother Hypertension Paternal Grandfather Mukund arauz Stroke Paternal Grandfather Mukund arauz Asthma Son 1 Александр [place] Asthma Son 3 Chip Arauz Other Son 4 Eosinophilic esophagitis (EoE) Breast cancer Neg Hx Relation Name Status Comments Brother 1 Alive Brother 2 Deondre Arauz Father Keith Arauz Alive Maternal Grandfather Maternal Grandmother Mother Alive Paternal Grandfather Mukund arauz Paternal Grandmother Sister Alive Son 1 Александр Paez Alive Son 2 Alive Son 3 Chip Arauz Son 4 Social History Tobacco Use Types Packs/Day Years Used Date Smoking Tobacco: Every Day Cigarettes 0.3 45 Smokeless Tobacco: Never Tobacco Cessation:Ready to Q uit: Not Asked; Counseling Given: Not Answered Comments:Has a patch and down to 4 cig. Per day Alcohol Use [...] on file Sexual Orientation Not on file Last Filed Vital Signs Vital Sign Reading Time Taken Comments Blood Pressure 121/81 07/08/2024 9:04 AM EDT Pulse 97 07/08/2024 9:04 AM EDT Temperature 36.6 C (97.8 F) 12/31/2023 9:44 AM EST Respiratory Rate 15 12/31/2023 11:10 AM EST Oxygen Saturation 96% 12/31/2023 11:10 AM EST Inhaled Oxygen Concentration - - Weight 114.3 kg (252 lb) 07/08/2024 9:04 AM EDT Height 162.6 cm (5' 4 ) 07/08/2024 9:04 AM EDT Body Mass Index 43.26 07/08/2024 9:04 AM EDT Plan of Treatment Upcoming Encounters Date Type Department Care Team (Late st Contact Info) Description 10/08/2024 9:00 AM EDT Office Visit [facility] [place] [address] [place] [address] Freedom Hsu, PAJamaC [address] [facility] [address] [place] [address] Health Maintenance Due Date Last Done Comments Tobacco Counseling 1978 Adult BMI Follow Up Plan 1996 Depression Screening 07/06/2023 07/05/2022 Influenza Vaccine 10/06/2024 Adult BMI Screening 07/08/2025 07/08/2024 Tobacco Screening 07/08/2025 07/08/2024 DTaP,Tdap and Td Vaccines (2 - Td or Tdap) 09/28/2028 09/28/2018 Colonoscopy 12/30/2028 12/31/2023, 12/31/2023 Medical Devices Implanted Type Area Assistant Paralegal Device Identifier Shelf Expiration Date Model / Serial / Lot Graft Bn 5ml Yomi Puros Strl Lf - [id number] Implanted:Qt y: 1 on 07/05/2022 by Eric Jimenez MD at [facility] Graft Kong Spine 12/12/2023 [id number] / / [id number] Platina Yasargil Titanium Aneurysm Clip Implanted:Qt y: 1 on 07/05/2022 by Eric Jimenez MD at [facility] Other Implant Platina [id number] / / Cover Bur Hl 14mm Lp Tab Unv Neuro 2 Thk.5mm Ns Lf - [id number] Implanted:Qt y: 1 on 07/05/2022 by Eric Jimenez MD at [facility] Other Implant JEFFERY CRANIOMAXILLOFACIAL [id number] / / Cover Bur Hl Crnfcl 10mmx.5mm Lp Tab Strl Lf Disp - [id number] Implanted:Qt y: 2 on 07/05/2022 by Eric Jimenez MD at [facility] Plate JEFFERY CRANIOMAXILLOFACIAL [id number] / / Plate Bn 16mm 2 Hl Lp Unv Neuro Ii Crnmxf Ti Ns Lf 1.5mm Scr - [id number] Implanted:Qt y: 2 on 07/05/2022 by Eric Jimenez MD at [facility] Plate JEFFERY CRANIOMAXILLOFACIAL [id number] / / Screw Bn 4mm 1.5mm Slf Drl Xpn Crnmxf Strl - [id number] Implanted:Qt y: 8 on 07/05/2022 by Eric Jimneez MD at [facility] Screw JEFFERY CRANIOMAXILLOFACIAL [id number] / / Procedures Procedure Name Priority Date/Time Associated Diagnosis Comments CT CTA HEAD Routine 07/04/2024 7:11 AM EDT Frequent headaches CT BRAIN WO CONT Routine 07/03/2024 10:3 2 AM EDT Frequent headaches PROVATION COLONOSCOPY Routine 12/31/2023 9:31 AM EST from Last 3 Months or Most Recently Relevant to Health Maintenance Results * CT angiogram head (07/04/2024 7:11 AM EDT) Anatomical Region Laterality Modality Head, Neuro, Vascular, Head and Neck, Neuro [place] ra N/A Computed Tomography 07/07/2024 3:12 PM [...] on 07/07/2024 3:17 PM Marisol Canales MD IMG CT ORDERABLES Final Result * CT brain without contrast (07/03/2024 10:32 [...] on 07/07/2024 7:20 AM Marisol Canales MD IMG CT ORDERABLES Final Result * Colonoscopy Report (12/31/2023 9:31 AM EST) Narrative SYSTEMGENERATED, DOCUMENTATION - 12/31/2023 9:31 AM EST This order has been auto-finalized for image and report archival in PACs. *For full report details, please reach out to your physician. This image is visible to you in MyChart.* us Aaron Saul DO IMG OR IMG ORDERABLES Final Result from Last 3 Months or Most Recently Relevant to Health Maintenance Insurance [facility] MEDICAID Advance Directives * Full Code (Latest Code Status on File) Date Activated Date Inactivated Comments 07/05/2022 12:30 PM 07/07/2022 4:57 PM Care Teams Integration Analyst Relationship Specialty Start Date End Date Ivon Wayne APRN-FNP [address] [place] [address] PCP - General Family Medicine 11/12/23
--- OUTSIDE RECORDS SUMMARY | 2024-07-14 07:39 | XMS_ITS | Encounter Summary ---
Author Organization [facility] tem Address [id number] [address] [place] [address] Care Team Providers Care First Helper Name Role Phone Ivon Wayne SCREEN CUTTER AND TRIMMER-GEOPHYSICAL PROSPECTOR Primary Care Provider +1- [phone] Encounter Details Date Type Department Care Team (Late st Contact Info) Description 01/09/2022 Telephone [facility] [address] [place] [phone] Tegan Bran Social History Tobacco Use Types Packs/Day Years [...] or suspected to have Coronavirus / COVID-19? Yes 01/12/2022 12:02 PM EST documented as of this encounter Miscellaneous Notes * Telephone Encounter - Tegan Bran - 01/09/2022 8:32 AM EST Patient called in and stated she was supposed to receive a call last week and has not. She states she is allergic to nickel and the doctor was supposed to ask around to find other options for her procedure and never called her to advise. Please call patient to advise. [phone]. * Telephone Encounter - Hamilton Bartlett MD - 01/09/2022 8:32 AM ESTSummary: Returned patient call Called and spoke with patient. Let's get her into [facility] within next 4 week to discuss treatment options. Hamilton Bartlett M.D. Neurointerventional Fellow * Telephone Encounter - Lisa Gamez RN - 01/09/2022 8:32 AM EST Called patient and scheduled tele visit for Sunday. documented in this encounter Plan of Treatment Upcoming Encounters Date Type Department Care Team (Late st Contact Info) Description 10/08/2024 9:00 AM EDT Office Visit [facility] [place] [address] [place] [address] Freedom Hsu, PA-C [address] [facility] [address] [place] [address] documented as of this encounter Visit Diagnoses Not on filedocumented in this encounter Additional Health Concerns Infection Onset Date Last Indicated Resolved Time COVID-19 Rule-Out 01/12/2022 01/12/2022 01/12/2022 3:54 PM EST COVID-19 Positive 01/12/2022 01/12/2022 02/02/2022 11:12 PM EST Assessment Noted Time PHQ-9 Depression Total Score: 15 12/28/ 022 7:00 AM EST documented as of this encounter Care Teams First Helper Relationship Specialty Start Date End Date Ivon Wayne APRN-GEOPHYSICAL PROSPECTOR [address] [id number] PCP - General Family Medicine 11/12/23 documented as of this encounter
--- OUTSIDE RECORDS SUMMARY | 2024-07-14 07:39 | XMS_ITS | Encounter Summary ---
Author Organization [employer] tem Address [id number] [address] [place] [address] Care Team Providers Care Toilet Attendant Name Role Phone Ivon Wayne GROUP SALES MANAGER-VERTICAL BORING MILL OPERATOR Primary Care Provider +1- [phone] Encounter Details Date Type Department Care Team (Late st Contact Info) Description 02/27/2022 Abstract [facility] Medical Oncology [address] [place] [address] Irwin Rodriguez MD [address] [place] [address] [address] [place], [place] [id number] Social History Tobacco Use Types Packs/Day Years [...] AM EDT Office Visit [facility] [place] [address] [place] [place] [address] Freedom Hsu, PAJamaC [address], [facility] [address] [place] [address] documented as of this encounter Visit Diagnoses Not on filedocumented in this encounter Additional Health Concerns Assessment Noted Time PHQ-9 Depression Total Score: 15 022 7:00 AM EST documented as of this encounter Care Teams Toilet Attendant Relationship Specialty Start Date End Date Ivon Wayne APRN-ALEXA [address] [place], [place] [id number] PCP - General Family Medicine 11/12/23 documented as of this encounter
--- OUTSIDE RECORDS SUMMARY | 2024-07-14 07:39 | XMS_ITS | Encounter Summary ---
Author Organization [facility] tem Address [id number] [address] [place] [address] Care Team Providers Care Cherry Pitter Name Role Phone Ivon Wayne FUSE COILER-LIME PLANT OPERATOR Primary Care Provider +1- [phone] Encounter Details Date Type Department Care Team (Late st Contact Info) Description [facility]/08[facility] [address] [facility] [address] [place] [address] Janis Mckinley Social History Tobacco Use Types Packs/Day Years [...] on file documented as of this encounter Miscellaneous Notes * Telephone Encounter - Janis Mckinley - 07/08/2024 3:48 PM EDT PA for Nurtec pending via [facility] with osborne # [id number] * Telephone Encounter - Janis Mckinley - 07/08/2024 3:48 PM EDT Approved with [facility] case # [id number] valid till 01/03/25. Approved for 8 per 30 days documented in this encounter Plan of Treatment Upcoming Encounters Date Type Department Care Team (Late st Contact Info) Description 10/08/2024 9:00 AM EDT Office Visit [facility] [address] [place] [address] Freedom Hsu, PA-C [address] [facility] [address] [place] [id number] documented as of this encounter Visit Diagnoses Not on filedocumented in this encounter Additional Health Concerns Assessment Noted Time PHQ-9 Depression Total Score: 4 07/06/19 23 2:10 PM EDT documented as of this encounter Care Teams Cherry Pitter Relationship Specialty Start Date End Date Ivon Wayne APRN-ALEXA [address] [address] PCP - General Family Medicine 11/12/23 documented as of this encounter
--- OUTSIDE RECORDS SUMMARY | 2024-07-14 07:39 | XMS_ITS | Encounter Summary ---
Author Organization [employer] tem Address [id number] [address] [place] [address] Care Team Providers Care Computer Education Professor Name Role Phone Ivon Wayne RECRUITING AND SELECTION CONSULTANT-FENCE SUPERVISOR Primary Care Provider +1- [phone] Encounter Details Date Type Department Care Team (Latest Contact Info) Description 07/08/2024 Travel Social History Tobacco Use Types Packs/Day Years [...] AM EDT Office Visit [facility] [place] [address] [place] [address] Freedom Hsu, GABC [address] [facility] [address] [place] [address] documented as of this encounter Visit Diagnoses Not on filedocumented in this encounter Additional Health Concerns Assessment Noted Time PHQ-9 Depression Total Score: 4 07/06/19 23 2:10 PM EDT documented as of this encounter Care Teams Computer Education Professor Relationship Specialty Start Date End Date Ivon Wayne APRN-FENCE SUPERVISOR [address] [place] [address] PCP - General Family Medicine 11/12/23 documented as of this encounter
--- OUTSIDE RECORDS SUMMARY | 2024-07-14 07:39 | XMS_ITS | Encounter Summary ---
Author Organization [employer] tem Address [id number] [address] [place] [address] Care Team Providers Care Speck Dyer Name Role Phone Ivon Wayne POULTRY PROCESSOR-CLOTH WINDING SUPERVISOR Primary Care Provider +1- [phone] Encounter Details Date Type Department Care Team (Latest Contact Info) Description 07/03/2024 Travel Social History Tobacco Use Types Packs/Day [...] AM EDT Office Visit [facility] [place] [address] [place] [address] Freedom Hsu, GABC [address] [facility], [facility] [address] [place] [address] documented as of this encounter Visit Diagnoses Not on filedocumented in this encounter Additional Health Concerns Assessment Noted Time PHQ-9 Depression Total Score: 4 07/06/19 23 2:10 PM EDT documented as of this encounter Care Teams Speck Dyer Relationship Specialty Start Date End Date Ivon Wayne APRN-CLOTH WINDING SUPERVISOR [address] [place] [address] PCP - General Family Medicine 11/12/23 documented as of this encounter
--- OUTSIDE RECORDS SUMMARY | 2024-07-14 07:50 | XMS_ITS | CCD ---
Author Organization [facility] Care Team Providers Care Rand Maker Name Role Phone Rodrigo DO LawrenceRon M Attending Provider [phone] NON STAFF Primary Care Provider Unavailabl e [...] GUIDRY ., DR OMAR [employer] Unavailable [facility] Attending Unava ilable COMMUNITY, HEALTH [...] Attending Unavailable ROOSEVELT FORBES Attending Unavailable Shammo BREAD AND PASTRY BAKER-CHIEF DEPUTY CORONER, Shad Primary Care Provider Volodymyr BREAD AND PASTRY BAKER-VALVE PIPE IRRIGATOR, [place] Primary Care Provider Ngsue, Kadori Attending Unavailable Ngirabakunzi, Kadori Primary Care Unavailable Sharmin Walker Unavailable [phone] CHAU WILLIAMSON Attending Unavailable RASHAD, MARISOL Referring Unavailable Volodymyr BREAD AND PASTRY BAKER-VALVE PIPE IRRIGATOR, [place] Primary Care Provider VOLODYMYR, BHUMI Referring Unavailable VOLODYMYR, [place] Primary Care Unavailable DB ELIZABETH Admitting Unavailable [...] sources) DULoxetine Drug Allergy 12-21-19 22 [facility] (5 sources) Leucine; Translations: [NICKEL] Drug Allergy 08-05-19 19 [facility] (4 sources) Penicillin Drug Allergy 05-28-19 21 Unknown [facility] (19 sources) DULoxetine; Translations: [duloxetine] Drug Allergy 12-29-19 22 Vomiting [facility] (20 sources) Naproxen; Translations: [naproxen] Drug Allergy 06-09-19 17 Hives [facility] (20 sources) Penicillins; Translations: [Penicillins] Allergy to substance 03-20-19 17 Shortness Of Breath, Rash [facility] (1 source) Unable to Assess Drug allergy (disorder) 12-21-19 [facility] Repository (3 sources) penicillAMINE Drug Allergy anaphylaxis [employer] Other (12 sources) nickel Drug Allergy 08-05-19 [facility] (1 source) Bee pollen; Translations: [BEE POLLEN] Propensity to adverse reactions to drug (disorder) 01-12-20 [facility] Repository (2 sources) DULoxetine Drug Allergy 06-03-19 25 [facility] Healthcare (2 sources) nickel sulfate Drug Allergy 06-03-19 25 [facility] Healthcare Medications Current Medications Medication Drug Class(es) Dates [...] Discontinued (Therapy completed) Tylenol prn Acti ve [id number] actuat albuterol 0.09 mg/actuat metered dose inhaler (1 source) beta2-Adrenergic Agonist Start: 03-09-2023 take 2 puff(s) by inhalation every four to six hours as needed Albuterol Sulfate HFA 108 (90 Base) MCG/ACT 2 puffs as needed Inhalation every 4-6 hours for 14 days Mar, Active amitriptyline hydrochloride 10 mg oral tablet (16 sources) Tricyclic Antidepressant Start: 06-10-2024 take 3 tablets by mouth once daily at bedtime amitriptyline (ELAVIL) 10 mg tablet Take 3 tablets (30 mg total) by mouth nightly. at bedtime 06/10/2024 Active Start: 11-29-2022 amitriptyline (ELAVIL) 50 mg tablet Indications: Fibromyalgia One capsule at 8 PM each night 90 tablet 1 11/29/2022 Active amitriptyline (E lavil) 25 MG tablet Take by mouth at bedtime Active amLODIPine 5 mg oral tablet (13 sources) Dihydropyridine Calcium Channel Estella Start: 12-25-2021 take 2 tablets by mouth once daily amLODIPine (NORVASC) 5 mg tablet Indications: hypertension Take 2 tablets (10 mg total) by mouth nightly Indications: high blood pressure. 12/25/2021 Active amLODIPine (Norv asc) 10 MG tablet Take by mouth Daily Active atorvastatin 20 mg oral tablet (17 sources) HMG-CoA Reductase Inhibitor Start: 04-24-2022 take [...] bisacodyl 5 mg delayed release oral tablet (5 sources) Stimulant Laxative Start: 12-05-2023 bisacodyL ( [...] 0 Active hydroCHLOROthiazide 25 mg oral tablet (3 sources) Thiazide Diuretic Start: 10-22-2023 take 1 tablet by mouth once daily hydroCHLOROthiazide (HYDRODIURIL) 25 mg tablet Take 1 tablet (25 mg total) by mouth daily. 10/22/2023 Active losartan potassium 100 mg oral tablet (17 sources) Angiotensin 2 Receptor Estella Start: 09-12-2022 take 100 mg by mouth once daily Losartan Active 100 MG PO Daily September 12, 2022 12:00am Start: 12-05-2021 take 2 tablets by [facility] once daily losartan (COZAAR) 50 mg [...] opioid reversal. 1 each 07/07/2022 Active omega 3-dvt-grl-fish oil (FI SH OIL) 300-1,000 mg capsule,delayed release(DR/EC) (11 sources) Start: 05-22-2022 omega 3-dha-ep a-fish oil (FISH OIL) 300-1,000 mg capsule,delayed release(DR/EC) Take 1 capsule by mouth in the morning. 05/22/2022 Active Start: 05-22-2022 omega 3-dha-ep a-fish oil (FISH OIL) 300-1,000 mg capsule,delayed release(DR/EC) Take 1 capsule by mouth in the morning. 0 05/22/2022 Active Busy-3 Fatty Acids-Fish Oil (1 source) Start: 09-12-2022 take 1 capsule by mouth once daily Busy-3 Fatty Acids-Fish Oil Active 1 CAP PO Daily September 12, 2022 12:00am omeprazole 40 mg delayed release oral capsule (16 sources) Proton Pump Inhibitor Start: 12-07-2021 take [...] Active rimegepant 75 mg disintegrating oral tablet (2 sources) Start: 07-08-2024 rimegepant (NURTEC ODT) 75 mg disintegrating tablet Indications: Migraine with aura and without status migrainosus, not intractable Dissolve 1 tablet (75 mg total) on tongue as needed (migraine). Maximum of 1 dose per 24 hours 16 tablet 5 07/08/2024 Active rimegepant (NURT EC ODT) 75 mg tablet,disintegrating Dissolve on tongue. 0 Active sod sulf-pot chloride-mag sulf 1.479-0.188- 0.225 gram tablet (2 sources) Start: 12-05-2023 sod sulf-pot chloride-mag sulf 1.479-0.188- 0.225 gram tablet Indications: Encounter for screening colonoscopy Please see instructional sheet given by physicians office. 24 tablet 12/05/2023 Active solifenacin succinate 5 mg oral tablet (9 sources) Cholinergic Muscarinic Antagonist Start: 04-25-2023 take 1 tablet by mouth in the morning solifenacin (VESICARE) 5 mg tablet Take 1 tablet (5 mg total) by mouth in the morning. 30 tablet 4 04/25/2023 Active tiZANidine 2 mg oral tablet (11 sources) Central alpha-2 Adrenergic Agonist Start: 11-29-2022 [...] Onset: 3 Episodic Coagulation and hemorrhagic disorders (16 sources) Activated protein C resistance; Translations: [Heterozygous Factor V Leiden mutation] Onset: 7 Chronic Disorders of lipid metabolism (6 sources) Hyperlipidemia, unspecified; Translations: [Mixed hyperlipidemia] Onset: 3 Chronic Endometriosis (13 sources) Endometriosis (clinical); Translations: [Endometriosis, unspecified] Onset: 7 06-08-2016 Chronic Esophageal disorders (20 sources) Gastroesophageal reflux disease; Translations: [Gastro-esophageal reflux disease without esophagitis] Onset: 7 Chronic Essential hypertension (3 sources) Essential (primary) hypertension; Translations: [ESSENTIAL PRIMARY HYPERTENSION] Onset: 2 Chronic Genitourinary symptoms and ill-defined conditions (20 sources) Mixed urinary incontinence; Translations: [Mixed incontinence] Onset: 3 04-25-2023 Chronic Headache; including migraine (14 sources) Migraine; Translations: [Migraine, unspecified, not intractable, [...] 06-02-2024 Episodic Other and ill-defined cerebrovascular disease (13 sources) Intracranial aneurysm; Translations: [Cerebral aneurysm, nonruptured] [...] PAIN] Onset: 12-10-2021 Episodic Biliary tract disease (13 sources) Cholelithiasis without obstruction; Translations: [Calculus of gallbladder without cholecystitis without obstruction] Onset: 04-07-2019 04-07-2019 Episodic Epilepsy; convulsions (13 sources) Seizure; Translations: [Unspecified convulsions] Onset: 06-08-2016 06-08-2016 Episodic Intestinal infection (1 source) Viral intestinal infection, unspecified; Translations: [VIRAL INTESTINAL INFECTION UNSPEC] Onset: 08-01-2021 Episodic Mood disorders (11 sources) Mood disorders Onset: 07-05-2022 07-05-2022 Nausea [...] Onset: 09-23-2021 Episodic Other connective tissue disease (13 sources) Fibromyalgia; Translations: [Fibromyalgia] Onset: 06-08-2016 06-08-2016 Episodic Other gastrointestinal disorders (13 sources) Dysphagia; Translations: [Dysphagia, unspecified] Onset: 06-08-2016 [...] disorder] Onset: 11-03-2021 Episodic Residual codes; unclassified (13 sources) Family history of stroke due to [...] Cedrick Hogue MD on 07/07/2024 7:20 AM [facility] CT CTA HEADon 06-02-[address] CTA HEAD HISTORY: [...] occlusion of the large vessels. Finalized by Destni Gomes MD on 07/07/2024 3:17 PM Normal [facility] No Panel Informationon 06-02 Type of biopsy: [...] taken Amount of lidocaine used: 1.0 [facility] Type of biopsy: tangential Informed [...] taken Amount of lidocaine used: 1.0 [facility] Type of biopsy: tangential Informed [...] taken Amount of lidocaine used: 1.0 cc [facility] Office Visiton 01-21-2024 Follow-up visit [id number] Jt Pérez 1980 F Date Provider Department Center 01/21/2024 ROOSEVELT SABILLON [facility] Family History Problem Relation Age of Onset Heart attack Father Heart attack Paternal Grandfather Stroke Paternal Grandfather Family Status - Relation Status Age at Father Paternal Grandfather Level of Service:04451 LA OFFICE/OUTPATIENT ESTABLISHED MOD MDM 30 MIN Normal [facility] Surgical Pathologyon 024 Surgical Pathology Normal [facility] Comment on above: Result Comment: [facility] [address] [place] [address] Surgical Pathology Consultation Patient Name:ARACELI PÉREZ.:1980 (Age: 43)Gender:FTaken:12/31/2023eported:01/09/2024hysician(s):Db Elizabeth D.O. ([phone])Copy To: Rec. #:[id number]: #[id number] Final Pathologic Diagnosis Cecal colon polyp; polypectomy: Tubular adenoma (1 fragment). Unremarkable colonic mucosa (2 fragments). Report Electronically Signed Out wak/01/09/2024Rubio Burgess MD Interpretation performed at [facility], [address] [place], [place] [id number], License number: [id number]. Clinical History Screening. 1. cold snared a polyp in the cecum. Gross Description Received in formalin labeled PRISCILA polyp in cecum are 18 christine delicate to friable soft tissue bits, 0.1-0.4 cm next with vegetative material. The specimens are filtered and submitted in single cassette. (1,ns,[id number], m8) TB tgb/01/01/2024NSK Specimen(s) Received Cecal colon polyp Fee Codes(s): 1; 14709 36on 11-05-2023 36 Concerning cholester ol levels ---- Message ----- From: Lashaun Andre NP Sent: 10/30/2023 11:21 AM EDT To: Kayla Crouch MA Subject: RE: Scan So let her know her cholesterol levels are very good, much better than last year with lipitor Normal [facility] Telephoneon 11-05-2023 Telephone [id number] Jt Pérez 1980 F Date Provider Department Center 11/05/2023 [id number], TANA TED Bautista [facility] Family History Problem Relation Age of Onset Heart attack Father Heart attack Paternal Grandfather Stroke Paternal Grandfather Family Status - Relation Status Age at Father Paternal Grandfather Normal [facility] 37on 10-22-2023 35 Start taking hydrochlorothiazide daily in the morning for blood pressure Please have blood drawn next week to check kidney function and electrolytes and cholesterol level- so you must be fasting for labs Normal [facility] Office Visiton 10-22-2023 Follow-up visit [id number] Jt Pérez 1980 F Date Provider Department Center 10/22/2023 [facility] Family History Problem Relation Age of Onset Heart attack Father Heart attack Paternal Grandfather Stroke Paternal Grandfather Family Status - Relation Status Age at Father Paternal Grandfather Level of Service:48724 LA OFFICE/OUTPATIENT ESTABLISHED LOW MDM 20 MIN Normal [facility] COVID + FLU Quick Testingon 03-01-2023 SARS-CoV-2 (COVID-19) RNA SARAH+probe Ql (Unsp spec) Negative [employer] Other COVID + FLU Quick Testing Negative [employer] Other [facility] 09-12-2022 L --- Specimen: [id number] Received: 09/12/22 Status: KASSIDY Martinez Num: [id number] Spec Type: Surgical Subm Dr: Siva You MD Tissues: A Esophagus Biopsy (ESOPHAGUS BX) Procedures: HE/2, Gross/Micro L4 Age/ Patient Sex Location Account Attending Physician Araceli Pérez 42/F [id number] Siva You MD SPEC NUM: [id number] RECD: 09/12/22 STATUS: KASSIDY MARTINEZ NUM: [id number] SHANNON: 09/12/22- [facility] DR: Siva You MD ENTERED: 09/12/[address]: SPEC TYPE: Surgical DEPT: S ORDERED: [...] The microscopic examination confirms the diagnosis. Specimen: [id number] Received: 09/12/22 Status: KASSIDY Martinez Num: [id number] Spec Type: Surgical Subm Dr: Siva You MD Tissues: A Esophagus Biopsy (ESOPHAGUS BX) Procedures: HE/Alfonso, Gross/Micro L4 Patient: Araceli Pérez [id number] (Continued) Specimen: [id number] Received: 09/12/22 (Continued) Signed (signature on file) Rory Jade MD 09/14/22 5425 Specimen: [id number] Received: 09/12/22 Status: KASSIDY Martinez Num: [id number] Spec Type: Surgical Subm Dr: Siva You MD Tissues: A Esophagus Biopsy (ESOPHAGUS BX) Procedures: /, Gross/Micro L4 Patient: Araceli Pérez [id number] (Continued) Specimen: Received: 09/12/22 (Continued) CPT Codes 12543 Specimen: [id number] Received: 09/12/22 Status: KASSIDY Martinez Num: [id number] Spec Type: Surgical Subm Dr: Siva You MD Tissues: A Esophagus Biopsy (ESOPHAGUS BX) Procedures: HE/2, Gross/Micro L4 Patient: Araceli Pérez [id number] (Continued) Signed (signature on file) Rory Jade MD 09/14/22 1155 Normal [facility] LIPID PROFILEon 04-21-2022 CHOL-HDL RATIO NORM SEE BELOW Normal [facility] Comment on above: Result Comment: 3.3 - 4.4 LOW RISK 4.4 - 7.1 AVERAGE RISK 7.1 - 11.0 MODERATE RISK >11.0 HIGH RISK Performed By: #### L IPID, CMP #### [facility] [address] [place] [address] Dr. Edil Gayle Cholesterol [Mass/Vol] 247 mg/dL Critically high <=200 [facility] Comment on above: Performed By: #### L IPID, CMP #### [facility] [address] [address] [address] Edil Gayle Cholesterol in HDL [Mass/Vol] 46 mg/dL Normal 40-60 [facility] Comment on above: Performed By: #### L IPID, CMP #### [facility] [address] [address] [address] Edil Gayle Cholesterol in LDL [Mass/Vol] 180.6 mg/dL Normal [facility] Comment on above: Performed By: #### L IPID, CMP #### [facility] [address] [address] [address] Edil Gayle Cholesterol.total/C holesterol in HDL [Mass ratio] 5.4 {ratio} Normal [facility] Comment on above: Performed By: #### L IPID, CMP #### [facility] [address] [place] [address] Dr. Edil Gayle HDL NORMAL > or = 60 mg/dl - LO W CARDIOVASCULAR RISK <40 mg/dl - HIGH CARDIOVASCULAR RISK Normal [facility] Comment on above: Performed By: #### L IPID, CMP #### [facility] [address] [place] [address] Dr. Edil Gayle LDL CALC NORMAL SEE BELOW Normal [facility] Comment on above: Result Comment: <100 mg/dl OPTIMAL 100 - 129 mg/dl NEAR OR ABOVE OPTIMAL 130 - 159 mg/dl BORDERLINE HIGH 160 - 189 mg/dl HIGH >190 mg/dl VERY HIGH Performed By: #### L IPID, CMP #### [facility] [address] [place] [address] Dr. Edil Gayle Triglyceride [Mass/Vol] 102 mg/dL Normal <=150 [facility] Comment on above: Performed By: #### L IPID, CMP #### [facility] [address] [place] [address] Dr. Edil Gayle VLDL CALC 20.4 mg/dL Normal [facility] Comment on above: Performed By: #### L IPID, CMP #### [facility] [address] [address] [address] Edil Gayle PROF 14(COMP METB)on 023 Albumin [Mass/Vol] 3.4 g/dL Normal 3.4-5.0 [facility] Comment on above: Performed By: #### L IPID, CMP #### [facility] [address] [address] [address] Edil Gayle Albumin/Globulin [Mass ratio] 0.9 {ratio} Normal [facility] Comment on above: Performed By: #### L IPID, CMP #### [facility] [address] [address] [address] Edil Gayle ALP [Catalytic activity/Vol] 117 U/L Critically high 46-116 [facility] Comment on above: Performed By: #### L IPID, CMP #### [facility] [address] [address] [address] Edil Gayle ALT [Catalytic activity/Vol] 25 U/L Normal 14-59 [facility] Comment on above: Performed By: #### L IPID, CMP #### [facility] [address] [address] [address] Edil Gayle Anion gap [Moles/Vol] 11.5 mmol/L Normal [facility] Comment on above: Performed By: #### L IPID, CMP #### [facility] [address] [address] [address] Edil Gayle AST [Catalytic activity/Vol] 16 U/L Normal 15-37 [facility] Comment on above: Performed By: #### L IPID, CMP #### [facility] [address] [address] [address] Edil Gayle Bilirubin [Mass/Vol] 0.4 mg/dL Normal 0.2-1.0 [facility] Comment on above: Performed By: #### L IPID, CMP #### [facility] [address] [address] [address] Edil Gayle Calcium [Mass/Vol] 8.9 mg/dL Normal 8.5-10.1 [facility] Comment on above: Performed By: #### L IPID, CMP #### [facility] [address] [address] [address] Edil Gayle Chloride [Moles/Vol] 106 mmol/L Normal 98-107 [facility] Comment on above: Performed By: #### L IPID, CMP #### [facility] [address] [address] [address] Edil Gayle CO2 [Moles/Vol] 29.8 mmol/L Normal 21.0-32.0 [facility] Comment on above: Performed By: #### L IPID, CMP #### [facility] [address] [address] [address] Edil Gayle Creatinine [Mass/Vol] 0.58 mg/dL Normal 0.55-1.02 [facility] Comment on above: Performed By: #### L IPID, CMP #### [facility] [address] [place] [address] Dr. Edil Gayle EGFR-AF IVORIAN >60 Normal >=60 [facility] Comment on above: Performed By: #### L IPID, CMP #### [facility] [address] [address] [address] Edil Gayle EGFR-NON AF IVORIAN >60 Normal >=60 [facility] Comment on above: Performed By: #### L IPID, CMP #### [facility] [address] [address] [address] Edil Gayle Globulin (S) [Mass/Vol] 3.6 g/dL Normal [facility] Comment on above: Performed By: #### L IPID, CMP #### [facility] [address] [address] [address] Edil Gayle Glucose [Mass/Vol] 103 mg/dL Normal 74-106 [facility] Comment on above: Performed By: #### L IPID, CMP #### [facility] [address] [address] [address] Edil Gayle Potassium [Moles/Vol] 4.3 mmol/L Normal 3.5-5.1 [facility] Comment on above: Performed By: #### L IPID, CMP #### [facility] [address] [place] [address] Dr. Edil Gayle Protein [Mass/Vol] 7.0 g/dL Normal 6.4-8.2 [facility] Comment on above: Performed By: #### L IPID, CMP #### [facility] [address] [place] [address] Dr. Edil Gayle Sodium [Moles/Vol] 143 mmol/L Normal 136-145 [facility] Comment on above: Performed By: #### L IPID, CMP #### [facility] [address] [place] [address] Dr. Edil Gayle Urea nitrogen [Mass/Vol] 12.0 mg/dL Normal 7.0-18.0 [facility] Comment on above: Performed By: #### L IPID, CMP #### [facility] [address] [place] [address] Dr. Edil Gayle Urea nitrogen/Creatinine [Mass ratio] 20.7 mg/mg Normal [facility] Comment on above: Performed By: #### L IPID, CMP #### [facility] [address] [place] [address] Dr. Edil Gayle CULTURE THROATon 04-03-2022 CULTURE THROAT Culture Observations : NORMAL RESPIRATORY JAYLEEN. Normal [facility] Comment on above: Performed By: #### F T4 #### [facility] [address] [place] [address] Dr. Edil Gayle RESPIRATORY PANEL PLUSon Adenovirus Not detected Normal NOT DETECTED [facility] Comment on above: Performed By: #### F T4 #### [facility] [address] [place] [address] Dr. Edil Monte. Parapertusis Not detected Normal NOT DETECTED [facility] Comment on above: Performed By: #### F T4 #### [facility] [address] [place] [address] Dr. Edil Velasco Pertussis Not detected Normal NOT DETECTED [facility] Comment on above: Performed By: #### F T4 #### [facility] [address] [place] [address] Dr. Edil Gayle Chlamydia Pneumoniae Not detected Normal NOT DETECTED [facility] Comment on above: Performed By: #### F T4 #### [facility] [address] [place] [address] Dr. Edil Gayle Coronavirus 229E Not detected Normal NOT DETECTED [facility] Comment on above: Performed By: #### F T4 #### [facility] [address] [place] [address] Dr. Edil Gayle Coronavirus HKU1 Not detected Normal NOT DETECTED [facility] Comment on above: Performed By: #### F T4 #### [facility] [address] [place] [address] Dr. Edil Gayle Coronavirus NL63 Not detected Normal NOT DETECTED [facility] Comment on above: Performed By: #### F T4 #### [facility] [address] [place] [address] Dr. Edil Gayle Coronavirus OC43 Not detected Normal NOT DETECTED [facility] Comment on above: Performed By: #### F T4 #### [facility] [address] [place] [address] Dr. Edil Gayle Influenza A H1 Not detected Normal NOT DETECTED [facility] Comment on above: Performed By: #### F T4 #### [facility] [address] [place] [address] Dr. Edil Gayle Influenza A H1 2009 Not detected Normal NOT DETECTED [facility] Comment on above: Performed By: #### F T4 #### [facility] [address] [place] [address] Dr. Edil Gayle Influenza A H3 Not detected Normal NOT DETECTED [facility] Comment on above: Performed By: #### F T4 #### [facility] [address] [place] [address] Dr. Edil Gayle Influenza B Not detected Normal NOT DETECTED [facility] Comment on above: Performed By: #### F T4 #### [facility] [address] [place] [address] Dr. Edil Gayle Metapneumovirus Not detected Normal NOT DETECTED [facility] Comment on above: Performed By: #### F T4 #### [facility] [address] [place] [address] Dr. Edil Gayle Mycoplas. Pneumoniae Not detected Normal NOT DETECTED [facility] Comment on above: Performed By: #### F T4 #### [facility] [address] [place] [address] Dr. Edil Gayle Parainfluenza 1 Not detected Normal NOT DETECTED [facility] Comment on above: Performed By: #### F T4 #### [facility] [address] [place] [address] Dr. Edil Gayle Parainfluenza 2 Not detected Normal NOT DETECTED [facility] Comment on above: Performed By: #### F T4 #### [facility] [address] [place] [address] Dr. Edil Gayle Parainfluenza 3 Not detected Normal NOT DETECTED [facility] Comment on above: Performed By: #### F T4 #### [facility] [address] [place] [address] Dr. Edil Gayle Parainfluenza 4 Not detected Normal NOT DETECTED [facility] Comment on above: Performed By: #### F T4 #### [facility] [address] [place] [address] Dr. Edil Gayle Rhino/Enterovirus Not detected Normal NOT DETECTED [facility] Comment on above: Performed By: #### F T4 #### [facility] [address] [place] [address] Dr. Edil Gayle RP2 Header 1 RESPIRATORY PANEL: VIRUSES Normal [facility] Comment on above: Performed By: #### F T4 #### [facility] [address] [place] [address] Dr. Edil Gayle RP2 Header 2 RESPIRATORY PANEL: BACTERIA Normal [facility] Comment on above: Performed By: #### F T4 #### [facility] [address] [place] [address] Dr. Edil Gayle RSV Not detected Normal NOT DETECTED [facility] Comment on above: Performed By: #### F T4 #### [facility] [address] [place] [address] Dr. Edil Gayle SARS-CoV-2 (COVID-19) RNA SARAH+probe Ql (Unsp spec) Not detected Normal NOT DETECTED [facility] Comment on above: Performed By: #### F T4 #### [facility] [address] [address] [address] Edil Gayle STREPT SCREENon 04-03-2022 STREP SCREEN A Negative Normal NEGATIVE [facility] Comment on above: Performed By: #### F T4 #### [facility] [address] [address] [address] Edil Gayle ECHOCARDIO M/2D COMPLETEon 1 04-03-2021 ECHOCARDIO M/2D COMPLETE Patient: ARACELI PÉREZ Exam Date: 01/31/2022 : 1980 Gender:F Ordering : LASHAUN JairoMoira JES Admission #: [id number] Family : Order #: [id number] CLICK HERE TO VIEW EXAM ECHOCARDIOGRAM REPORT PROCEDURE: CARDIO PULMONARY ECHOCARDIO M/2D COMP INDICATIONS: Atypical chest pain, CMKEON COMPARISON: None. DESCRIPTION: COMPLETE ECHOCARDIOGRAM Real-time transthoracic [...] Borges M.D. on 02/07/2022 at 09:43 Normal [facility] NM STRESS/REST MULTIon 01-31 NM STRESS/REST MULTI Patient: ARACELI PÉREZ Exam Date: 01/31/2022 : 1980 Gender:F Ordering : LASHAUN ANDRE Admission #: [id number] Family : Order #: [id number] CLICK HERE TO VIEW EXAM RADIOLOGY REPORT [...] Ferreira MD on 02/02/2022 at 11:41 Normal [facility] MR head/brain wo/w conon MR head/brain wo/w [facility] Alexis [address] [place] [address] MRI Report Signed Patient: Araceli Pérez MR#: [id number] : 1980 Acct:[id number] Age/Sex: 41 / F ADM Date: 12/20/21 Loc: MR Room: Type: [facility] Attending Dr: Ron Wallace DO Copies [...] Efrain Chapman M.D.12/21/2021 8:39 AM Dictation Location: [place] [address] Transcribed By: [facility] 12/21/21838 Dictated By: Efrain Chapman II, MD 12/21/21815 Signed By: 12/21/21838 Normal [facility] XR LSPINE W_OBLS AND FLEX_EX [...] by: MARCE FERREIRA Date: 2021-12-21 07:11 Normal [facility] US SINGLE QUAD RT UPPERon US SINGLE [...] by: MARCE FERREIRA Date: 2021-12-11 08:32 Normal [facility] XR CHEST 2 Von 12-06-2021 XR CHEST [...] by: MARCE FERREIRA Date: 2021-12-06 15:35 Normal [facility] MG MAMM SCREEN 3D TISHA CADon 11-08-2021 MG MAMM SCREEN 3D TISHA CAD Patient: PRISCILA ARACELI KeaneMoira Exam Date: 11/08/2021 : 1980 Gender:F Ordering : SHAD ELLIOTT [employer]CH[employer]IC[employer]S ASSISTANT-C Admission #: [id number] Family : Order #: [id number] CLICK HERE TO VIEW EXAM RADIOLOGY REPORT PROCEDURE: MAMMOGRAM SCREENING 3D BILATERAL CAD COMPARISON: MG MAMM SCREEN 3D TISHA CAD, 07/19/2020. INDICATIONS: Screening mammography Calculator Name NCI Breast Cancer Risk Assessment Tool 5 Year Breast Cancer Risk 0.50% Lifetime Breast Cancer Risk 6.50% Personal Breast Cancer No Personal Ovarian Cancer No Treatments None Family Cancers None LOCATION: [facility] BREAST COMPOSITION: Scattered areas fibroglandular density. FINDINGS: [...] MD on 11/09/2021 at 07:53 Normal [facility] CBC AUTO DIFFon 11-01-2021 BASO # 0.1 103/ul Normal 0.0-0.1 [facility] Comment on above: Performed By: #### F T4 #### [facility] [address] [place] [address] Dr. Edil Gayle Basophils/100 WBC (Bld) 1.2 % Normal 0.2-2.0 [facility] Comment on above: Performed By: #### F T4 #### [facility] [address] [place] [address] Dr. Edil Gayle EO # 0.3 103/ul Normal 0.0-0.7 [facility] Comment on above: Performed By: #### F T4 #### [facility] [address] [place] [address] Dr. Edil Gayle Eosinophils/100 WBC (Bld) 2.7 % Normal 0.9-7.0 [facility] Comment on above: Performed By: #### F T4 #### [facility] [address] [place] [address] Dr. Edil Gayle Erythrocyte distribution width (RBC) [Ratio] 12.8 % Normal 11.0-15.0 [facility] Comment on above: Performed By: #### F T4 #### [facility] [address] [place] [address] Dr. Edil Gayle Hematocrit (Bld) [Volume fraction] 46.5 % Normal 36.0-48.0 [facility] Comment on above: Performed By: #### F T4 #### [facility] [address] [place] [address] Dr. Edil Gayle Hemoglobin (Bld) [Mass/Vol] 15.5 g/dL Normal 12.0-16.0 [facility] Comment on above: Performed By: #### F T4 #### [facility] [address] [place] [address] Dr. Edil Gayle IG # 0.02 10e3/ul Normal 0.00-0.03 [facility] Comment on above: Performed By: #### F T4 #### [facility] [address] [place] [address] Dr. Edil Gayle IG % 0.2 % Normal 0.0-0.5 [facility] Comment on above: Performed By: #### F T4 #### [facility] [address] [place] [address] Dr. Edil Gayle LYMPH # 2.1 103/ul Normal 1.2-3.8 [facility] Comment on above: Performed By: #### F T4 #### [facility] [address] [place] [address] Dr. Edil Gayle Lymphocytes/100 WBC (Bld) 20.4 % Critically low 20.5-60.0 [facility] Comment on above: Performed By: #### F T4 #### [facility] [address] [place] [address] Dr. Edil Gayle MANUAL DIFF REQ NO Normal [facility] Comment on above: Performed By: #### F T4 #### [facility] [address] [place] [address] Dr. Edil Gayle MCH (RBC) [Entitic mass] 30.3 pg Normal 26.7-34.0 [facility] Comment on above: Performed By: #### F T4 #### [facility] [address] [address] [address] Edil Gayle MCHC (RBC) [Mass/Vol] 33.3 g/dL Normal 29.9-35.2 [facility] Comment on above: Performed By: #### F T4 #### [facility] [address] [address] [address] Edil Gayle MCV (RBC) [Entitic vol] 90.8 fL Normal 81.0-99.0 [facility] Comment on above: Performed By: #### F T4 #### [facility] [address] [place] [address] Dr. Edil Gayle MONO # 0.5 103/ul Normal 0.3-0.8 [facility] Comment on above: Performed By: #### F T4 #### [facility] [address] [place] [address] Dr. Edil Gayle Monocytes/100 WBC (Bld) 5.2 % Normal 1.7-12.0 [facility] Comment on above: Performed By: #### F T4 #### [facility] [address] [place] [address] Dr. Edil Gayle NEUT # 7.3 103/ul Critically high 1.4-6.5 [facility] Comment on above: Performed By: #### F T4 #### [facility] [address] [place] [address] Dr. Edil Gayle Neutrophils/100 WBC (Bld) 70.3 % Normal 43.0-75.0 [facility] Comment on above: Performed By: #### F T4 #### [facility] [address] [address] [address] Edil Gayle Platelet mean volume (Bld) [Entitic vol] 8.8 fL Critically low 9.5-13.5 [facility] Comment on above: Performed By: #### F T4 #### [facility] [address] [address] [address] Edil Gayle PLT 294 103/ul Normal 150-450 [facility] Comment on above: Performed By: #### F T4 #### [facility] [address] [address] [address] Edil Gayle RBC 5.12 106/ul Normal 4.20-5.40 [facility] Comment on above: Performed By: #### F T4 #### [facility] [address] [address] [address] Edil Gayle WBC 10.3 103/ul Normal 4.0-11.0 [facility] Comment on above: Performed By: #### F T4 #### [facility] [address] [place] [address] Dr. Edil Gayle FREE T4on 11-01-2021 Free T4 [Mass/Vol] 0.88 ng/dL Normal 0.76-1.46 [facility] Comment on above: Performed By: #### F T4 #### [facility] [address] [place] [address] Dr. Edil Gayle GLYCOHEMOGLOBIN A1Con 2021 ADA RECOMMENDATION SEE BELOW Normal [facility] Comment on above: Result Comment: ADA RECOMMENDED LIMIT 4.0 - 6.0 ADA THERAPEUTIC TARGET < 7.0 ACTION SUGGESTED > 7.0 Performed By: #### A 1C #### [facility] [address] [place] [address] Dr. Edil Gayle Glucose [Mass/Vol] 108 mg/dL Normal [facility] Comment on above: Performed By: #### A 1C #### [facility] [address] [place] [address] Dr. Edil Gayle HbA1c (Bld) [Mass fraction] 5.4 % Normal 4.5-6.2 [facility] Comment on above: Performed By: #### A 1C #### [facility] [address] [place] [address] Dr. Edil Gayle LIPID PROFILEon 11-01-2021 CHOL-HDL RATIO NORM SEE BELOW Normal [facility] Comment on above: Result Comment: 3.3 - 4.4 LOW RISK 4.4 - 7.1 AVERAGE RISK 7.1 - 11.0 MODERATE RISK >11.0 HIGH RISK Performed By: #### T ANA MARIA CMP, LIPID #### [facility] [address] [address] [address] Edil Gayle Cholesterol [Mass/Vol] 246 mg/dL Critically high <=200 [facility] Comment on above: Performed By: #### T ANA MARIA CMP, LIPID #### [facility] [address] [address] [address] Edil Gayle Cholesterol in HDL [Mass/Vol] 48 mg/dL Normal 40-60 [facility] Comment on above: Performed By: #### T ANA MARIA CMP, LIPID #### [facility] [address] [address] [address] Edil Gayle Cholesterol in LDL [Mass/Vol] 172.6 mg/dL Normal [facility] Comment on above: Performed By: #### T ANA MARIA CMP, LIPID #### [facility] [address] [address] [address] Edil Gayle Cholesterol.total/C holesterol in HDL [Mass ratio] 5.1 {ratio} Normal [facility] Comment on above: Performed By: #### T ANA MARIA CMP, LIPID #### [facility] [address] [address] [address] Edil Gayle HDL NORMAL > or = 60 mg/dl - LO W CARDIOVASCULAR RISK <40 mg/dl - HIGH CARDIOVASCULAR RISK Normal [facility] Comment on above: Performed By: #### T ANA MARIA CMP, LIPID #### [facility] [address] [place] [address] Dr. Edil Gayle LDL CALC NORMAL SEE BELOW Normal [facility] Comment on above: Result Comment: <100 mg/dl OPTIMAL 100 - 129 mg/dl NEAR OR ABOVE OPTIMAL 130 - 159 mg/dl BORDERLINE HIGH 160 - 189 mg/dl HIGH >190 mg/dl VERY HIGH Performed By: #### T ANA MARIA, CMP, LIPID #### [facility] [address] [address] [address] Edil Gayle Triglyceride [Mass/Vol] 127 mg/dL Normal <=150 [facility] Comment on above: Performed By: #### T SH, CMP, LIPID #### [facility] [address] [address] [address] Edil Gayle VLDL CALC 25.4 mg/dL Normal [facility] Comment on above: Performed By: #### T SH, CMP, LIPID #### [facility] [address] [address] [address] Edil Gayle PROF 14(COMP METB)on 022 Albumin [Mass/Vol] 3.6 g/dL Normal 3.4-5.0 [facility] Comment on above: Performed By: #### T SH, CMP, LIPID #### [facility] [address] [place] [address] Dr. Edil Gayle Albumin/Globulin [Mass ratio] 1.0 {ratio} Normal [facility] Comment on above: Performed By: #### T SH, CMP, LIPID #### [facility] [address] [place] [address] Dr. Edil Gayle ALP [Catalytic activity/Vol] 109 U/L Normal 46-116 [facility] Comment on above: Performed By: #### T SH, CMP, LIPID #### [facility] [address] [place] [address] Dr. Edil Gayle ALT [Catalytic activity/Vol] 21 U/L Normal 14-59 [facility] Comment on above: Performed By: #### T SH, CMP, LIPID #### [facility] [address] [address] [address] Edil Gayle Anion gap [Moles/Vol] 10.9 mmol/L Normal [facility] Comment on above: Performed By: #### T SH, CMP, LIPID #### [facility] [address] [place] [address] Dr. Edil Gayle AST [Catalytic activity/Vol] 15 U/L Normal 15-37 [facility] Comment on above: Performed By: #### T SH, CMP, LIPID #### [facility] [address] [place] [address] Dr. Edil Gayle Bilirubin [Mass/Vol] 0.8 mg/dL Normal 0.2-1.0 [facility] Comment on above: Performed By: #### T SH, CMP, LIPID #### [facility] [address] [place] [address] Dr. Edil Gayle Calcium [Mass/Vol] 9.3 mg/dL Normal 8.5-10.1 [facility] Comment on above: Performed By: #### T SH, CMP, LIPID #### [facility] [address] [address] [address] Edil Gayle Chloride [Moles/Vol] 104 mmol/L Normal 98-107 [facility] Comment on above: Performed By: #### T SH, CMP, LIPID #### [facility] [address] [place] [address] Dr. Edil Gayle CO2 [Moles/Vol] 30.6 mmol/L Normal 21.0-32.0 [facility] Comment on above: Performed By: #### T SH, CMP, LIPID #### [facility] [address] [place] [address] Dr. Edil Gayle Creatinine [Mass/Vol] 0.77 mg/dL Normal 0.55-1.02 [facility] Comment on above: Performed By: #### T SH, CMP, LIPID #### [facility] [address] [place] [address] Dr. Edil Gayle EGFR-AF IVORIAN >60 Normal >=60 [facility] Comment on above: Performed By: #### T SH, CMP, LIPID #### [facility] [address] [place] [address] Dr. Edil Gayle EGFR-NON AF IVORIAN >60 Normal >=60 [facility] Comment on above: Performed By: #### T SH, CMP, LIPID #### [facility] [address] [place] [address] Dr. Edil Gayle Globulin (S) [Mass/Vol] 3.7 g/dL Normal [facility] Comment on above: Performed By: #### T SH, CMP, LIPID #### [facility] [address] [place] [address] Dr. Edil Gayle Glucose [Mass/Vol] 106 mg/dL Normal 74-106 [facility] Comment on above: Performed By: #### T FE RODGERS, LIPID #### [facility] [address] [address] [address] Edil Gayle Potassium [Moles/Vol] 4.5 mmol/L Normal 3.5-5.1 [facility] Comment on above: Performed By: #### T ANA MARIA CMP, LIPID #### [facility] [address] [place] [address] Dr. Edil Gayle Protein [Mass/Vol] 7.3 g/dL Normal 6.4-8.2 [facility] Comment on above: Performed By: #### T ANA MARIA CMP, LIPID #### [facility] [address] [place] [address] Dr. Edil Gayle Sodium [Moles/Vol] 141 mmol/L Normal 136-145 [facility] Comment on above: Performed By: #### T ANA MARIA CMP, LIPID #### [facility] [address] [place] [address] Dr. Edil Gayle Urea nitrogen [Mass/Vol] 11.0 mg/dL Normal 7.0-18.0 [facility] Comment on above: Performed By: #### T ANA MARIA CMP, LIPID #### [facility] [address] [place] [address] Dr. Edil Gayle Urea nitrogen/Creatinine [Mass ratio] 14.3 mg/mg Normal [facility] Comment on above: Performed By: #### T ANA MARIA CMP, LIPID #### [facility] [address] [place] [address] Dr. Edil Gayle TSHon 11-01-2021 TSH 2.620 uIU/mL Normal 0.358-3.740 [facility] Comment on above: Performed By: #### T ANA MARIA CMP, LIPID #### [facility] [address] [place] [address] Dr. Edil Gayle CBC AUTO DIFFon 07-28-2021 BASO # 0.1 103/ul Normal 0.0-0.1 [facility] Comment on above: Performed By: #### C BC #### [facility] [address] [address] [address] Edil Gayle Basophils/100 WBC (Bld) 1.0 % Normal 0.2-2.0 [facility] Comment on above: Performed By: #### C BC #### [facility] [address] [address] [address] Edil Gayle EO # 0.3 103/ul Normal 0.0-0.7 [facility] Comment on above: Performed By: #### C BC #### [facility] [address] [address] [address] Edil Gayle Eosinophils/100 WBC (Bld) 2.9 % Normal 0.9-7.0 [facility] Comment on above: Performed By: #### C BC #### [facility] [address] [place] [address] Dr. Edil Gayle Erythrocyte distribution width (RBC) [Ratio] 13.0 % Normal 11.0-15.0 [facility] Comment on above: Performed By: #### C BC #### [facility] [address] [place] [address] Dr. Edil Gayle Hematocrit (Bld) [Volume fraction] 46.3 % Normal 36.0-48.0 [facility] Comment on above: Performed By: #### C BC #### [facility] [address] [place] [address] Dr. Edil Gayle Hemoglobin (Bld) [Mass/Vol] 15.4 g/dL Normal 12.0-16.0 [facility] Comment on above: Performed By: #### C BC #### [facility] [address] [place] [address] Dr. Edil Gayle IG # 0.03 10e3/ul Normal 0.00-0.03 [facility] Comment on above: Performed By: #### C BC #### [facility] [address] [place] [address] Dr. Edil Gayle IG % 0.3 % Normal 0.0-0.5 [facility] Comment on above: Performed By: #### C BC #### [facility] [address] [place] [address] Dr. Edil Gayle LYMPH # 2.4 103/ul Normal 1.2-3.8 [facility] Comment on above: Performed By: #### C BC #### [facility] [address] [place] [address] Dr. Edil Gayle Lymphocytes/100 WBC (Bld) 22.4 % Normal 20.5-60.0 [facility] Comment on above: Performed By: #### C BC #### [facility] [address] [place] [address] Dr. Edil Gayle MANUAL DIFF REQ NO Normal [facility] Comment on above: Performed By: #### C BC #### [facility] [address] [place] [address] Dr. Edil Gayle MCH (RBC) [Entitic mass] 30.9 pg Normal 26.7-34.0 [facility] Comment on above: Performed By: #### C BC #### [facility] [address] [place] [address] Dr. Edil Gayle MCHC (RBC) [Mass/Vol] 33.3 g/dL Normal 29.9-35.2 [facility] Comment on above: Performed By: #### C BC #### [facility] [address] [place] [address] Dr. Edil Gayle MCV (RBC) [Entitic vol] 93.0 fL Normal 81.0-99.0 [facility] Comment on above: Performed By: #### C BC #### [facility] [address] [place] [address] Dr. Edil Gayle MONO # 0.7 103/ul Normal 0.3-0.8 [facility] Comment on above: Performed By: #### C BC #### [facility] [address] [place] [address] Dr. Edil Gayle Monocytes/100 WBC (Bld) 6.9 % Normal 1.7-12.0 [facility] Comment on above: Performed By: #### C BC #### [facility] [address] [place] [address] Dr. Edil Gayle NEUT # 7.1 103/ul Critically high 1.4-6.5 [facility] Comment on above: Performed By: #### C BC #### [facility] [address] [place] [address] Dr. Edil Gayle Neutrophils/100 WBC (Bld) 66.5 % Normal 43.0-75.0 [facility] Comment on above: Performed By: #### C BC #### [facility] [address] [place] [address] Dr. Edil Gayle Platelet mean volume (Bld) [Entitic vol] 9.4 fL Critically low 9.5-13.5 [facility] Comment on above: Performed By: #### C BC #### [facility] [address] [place] [address] Dr. Edil Gayle PLT 247 103/ul Normal 150-450 [facility] Comment on above: Performed By: #### C BC #### [facility] [address] [place] [address] Dr. Edil Gayle RBC 4.98 106/ul Normal 4.20-5.40 [facility] Comment on above: Performed By: #### C BC #### [facility] [address] [place] [address] Dr. Edil Gayle WBC 10.7 103/ul Normal 4.0-11.0 [facility] Comment on above: Performed By: #### C BC #### [facility] [address] [place] [address] ABD/PELV W CONon [...] by: MICHELLE HENRY Date: 2021-07-28 11:03 Normal [facility] ER URINE PROFILEon 2 Bilirubin Ql (U) Negative Normal NEGATIVE [facility] Comment on above: Performed By: #### E RUR #### [facility] [address] [place] [address] Dr. Edil Gayle Clarity (U) CLEAR Normal CLEAR [facility] Comment on above: Performed By: #### E RUR #### [facility] [address] [place] [address] Dr. Edil Gayle Color (U) YELLOW Normal YELLOW [facility] Comment on above: Performed By: #### E RUR #### [facility] [address] [place] [address] Dr. Edil NAQVI A micrscopic examination will be performed if indicated. Normal [facility] Comment on above: Performed By: #### E RUR #### [facility] [address] [place] [address] Dr. Edil Gayle Glucose Ql (U) Negative Normal NEGATIVE [facility] Comment on above: Performed By: #### E RUR #### [facility] [address] [place] [address] Dr. Edil Gayle Hemoglobin Ql (U) Negative Normal NEGATIVE [facility] Comment on above: Performed By: #### E RUR #### [facility] [address] [place] [address] Dr. Edil Gayle Ketones Ql (U) Negative Normal NEGATIVE [facility] Comment on above: Performed By: #### E RUR #### [facility] [address] [place] [address] Dr. Edil Gayle LEUKOCYTES Negative Normal NEGATIVE [facility] Comment on above: Performed By: #### E RUR #### [facility] [address] [place] [address] Dr. Edil Gayle Nitrite Ql (U) Negative Normal NEGATIVE [facility] Comment on above: Performed By: #### E RUR #### [facility] [address] [place] [address] Dr. Edil Gayle pH (U) 6.0 [pH] Normal 5-9 [facility] Comment on above: Performed By: #### E RUR #### [facility] [address] [place] [address] Dr. Edil Gayle SPEC GRAVITY 1.030 Abnormal 1.005-<=1.02 5 [facility] Comment on above: Performed By: #### E RUR #### [facility] [address] [place] [address] Dr. Edil Gayle UA PROTEIN Negative Normal NEGATIVE/ TRACE [facility] Comment on above: Performed By: #### E RUR #### [facility] [address] [place] [address] Dr. Edil Gayle UR MICRO IND NOT INDICATED Normal [facility] Comment on above: Performed By: #### E RUR #### [facility] [address] [place] [address] Dr. Edil Gayle Urobilinogen Qn (U) 0.2 {Tee'U}/dL Normal 0.2 - 1. 0 [facility] Comment on above: Performed By: #### E RUR #### [facility] [address] [place] [address] Dr. Edil Gayle PROF CHEM 8 (BAS METB)on Anion gap [Moles/Vol] 9.8 mmol/L Normal [facility] Comment on above: Performed By: #### F T4 #### [facility] [address] [place] [address] Dr. Edil Gayle Calcium [Mass/Vol] 8.4 mg/dL Critically low 8.5-10.[address] [facility] Comment on above: Performed By: #### F T4 #### [facility] [address] [address] [address] Edil Gayle Chloride [Moles/Vol] 106 mmol/L Normal 98-107 [facility] Comment on above: Performed By: #### F T4 #### [facility] [address] [address] [address] Edil Gayle CO2 [Moles/Vol] 29.1 mmol/L Normal 21.0-32.0 [facility] Comment on above: Performed By: #### F T4 #### [facility] [address] [address] [address] Edil Gayle Creatinine [Mass/Vol] 0.78 mg/dL Normal 0.55-1.02 [facility] Comment on above: Performed By: #### F T4 #### [facility] [address] [place] [address] Dr. Edil Gayle EGFR-AF IVORIAN >60 Normal >=60 [facility] Comment on above: Performed By: #### F T4 #### [facility] [address] [place] [address] Dr. Edil Gayle EGFR-NON AF IVORIAN >60 Normal >=60 [facility] Comment on above: Performed By: #### F T4 #### [facility] [address] [place] [address] Dr. Edil Gayle Glucose [Mass/Vol] 89 mg/dL Normal 74-106 [facility] Comment on above: Performed By: #### F T4 #### [facility] [address] [place] [address] Dr. Edil Gayle Potassium [Moles/Vol] 3.9 mmol/L Normal 3.5-5.1 [facility] Comment on above: Performed By: #### F T4 #### [facility] [address] [place] [address] Dr. Edil Gayle Sodium [Moles/Vol] 141 mmol/L Normal 136-145 [facility] Comment on above: Performed By: #### F T4 #### [facility] [address] [place] [address] Dr. Edil Gayle Urea nitrogen [Mass/Vol] 12.0 mg/dL Normal 7.0-18.0 [facility] Comment on above: Performed By: #### F T4 #### [facility] [address] [place] [address] Dr. Edil Gayle Urea nitrogen/Creatinine [Mass ratio] 15.4 mg/mg Normal [facility] Comment on above: Performed By: #### F T4 #### [facility] [address] [place] [address] Dr. Edil Gayle ANAon 11-22-2020 RAFIA PATTERN SPECKLED Normal [facility] [...] authority. Performed By: #### 1 0196 #### [facility] [address] RAFIA SCREEN 1:80 Abnormal <1:40,1:40 [facility] Comment on above: Result Comment: Test performed using JOSE C IFA RAFIA Hep-2 Test, a pre-standardized assay designed for the qualitative and semi-quantitative detection of antinuclear antibodies. Performed By: #### 1 0196 #### [facility] [address] C REACTIVE PROTEINon CRP [Mass/Vol] 1.9 mg/L Normal 0.0-7.0 [facility] Comment on above: Performed By: #### 9 9744, 61350, 65801 #### [facility] [address] [place] [address], [facility] CBC W/DIFFon 11-22-2020 ABS IMM GRANS 0.0 10*3/uL Normal 0.0-0.2 [facility] Comment on above: Performed By: #### 5 102, 60325 #### [facility] [address] [place] [address], [facility] ABS NEUTROPHILS 10.1 10*3/uL High 1.6-7.6 The [facility] Comment on above: Performed By: #### 5 102, 23723 #### [facility] [address] [place] [address], [facility] Basophils (Bld) [#/Vol] 0.1 10*3/uL Normal 0.0-0.2 [facility] Comment on above: Performed By: #### 5 102, 53656 #### [facility] [address] [place] [address], [facility] Basophils/100 WBC (Bld) 0.8 % Normal 0.0-1.0 [facility] Comment on above: Performed By: #### 102, 89560 #### [facility] [address] [facility] [place] [address], [facility] Eosinophils (Bld) [#/Vol] 0.2 10*3/uL Normal 0.0-0.5 [facility] Comment on above: Performed By: #### 5 102, 79522 #### [facility] [address] [facility] [place] [place] [address], [facility] Eosinophils/100 WBC (Bld) 1.2 % Normal 0.0-6.0 [facility] Comment on above: Performed By: #### 5 102, 61154 #### [facility] [address] [facility] [place] [place] [address], [facility] Erythrocyte distribution width (RBC) [Ratio] 13.2 % Normal 11.5-15.0 [facility] Comment on above: Performed By: #### 102, 27447 #### [facility] [address] [facility] [address] Hematocrit (Bld) [Volume fraction] 47.8 % High 36.0-45.0 [facility] Comment on above: Performed By: #### 5 102, 62647 #### [facility] [address] [facility] [place] [address], [facility] Hemoglobin (Bld) [Mass/Vol] 16.1 g/dL High 12.0-15.0 [facility] Comment on above: Performed By: #### 5 102, 19338 #### [facility] [address] [place] [address], [facility] IMMATURE GRANS 0.3 % Normal 0.0-1.0 [facility] Comment on above: Performed By: #### 102, 20439 #### [facility] [address] Lymphocytes (Bld) [#/Vol] 2.3 10*3/uL Normal 1.2-4.0 [facility] Comment on above: Performed By: #### 5 102, 08459 #### [facility] [address] [facility] [place] [address], [facility] Lymphocytes/100 WBC (Bld) 17.1 % Low 20.0-45.0 [facility] Comment on above: Performed By: #### 5 102, 25309 #### [facility] [address] [facility]. [address] MCH (RBC) [Entitic mass] 30.8 pg Normal 27.0-33.0 [facility] Comment on above: Performed By: #### 5 102, 60634 #### [facility] [address] [facility] [place] [place] [address], [facility] MCHC (RBC) [Mass/Vol] 33.7 g/dL Normal 32.0-35.0 [facility] Comment on above: Performed By: #### 5 010, 54103 #### [facility] [address] [place] [address], [facility] MCV (RBC) [Entitic vol] 91.4 fL Normal 82.0-98.0 [facility] Comment on above: Performed By: #### 5 102, 98180 #### [facility] [address] [facility] [place] [place] [address], [facility] Monocytes (Bld) [#/Vol] 0.7 10*3/uL Normal 0.1-1.0 [facility] Comment on above: Performed By: #### 5 010, 06335 #### [facility] [address] [facility] [place] [address], [facility] MONOS 5.0 % Normal 5.0-12.0 [facility] Comment on above: Performed By: #### 5 102, 53129 #### [facility] [address] [facility]. [address] Neutrophils/100 WBC (Bld) 75.6 % High 40.0-72.0 [facility] Comment on above: Performed By: #### 5 102, 48273 #### [facility] [address] [facility] [place] [place] [address], [facility] Nucleated RBC/100 WBC (Bld) [Ratio] 0 % Normal 0-0 [facility] Comment on above: Performed By: #### 5 102, 63619 #### [facility] [address] [facility] [place] [place] [address], [facility] PLAT CNT 303 10*3/uL Normal 150-400 [facility] Comment on above: Performed By: #### 5 102, 80897 #### [facility] [address] [place] [address], [facility] RBC (Bld) [#/Vol] 5.23 10*6/uL High 3.80-5.00 [facility] Comment on above: Performed By: #### 5 0103, 37841 #### [facility] [address] WBC (Bld) [#/Vol] 13.31 10*3/uL High 4.00-10.60 [facility] Comment on above: Performed By: #### 5 0103, 05366 #### [facility] [address] CYCLIC [place]INATED PEPTIDE [place] [id number] 11-22-2020 CYCLIC CIT PEP 4 Units Normal 0-19 [facility] Comment on above: Result Comment: [...] be monitored and testing repeated. Performed By: [employer] [address] [place] [id number] Diabetologist: Olga Duval MD HAND LEFT 3 [facility] 11-22-2020 HAND LEFT 3 S [facility] Department of Radiology [address] [place] [address] ===== Patient Name: ARACELI PÉREZ : 1980 Sex: F Age: Race: White Pt. Location: 264 Patient Status: D Ordered Date: 11/22/2020 10:50:00 AM Completed Date: 11/22/2020 10:54 AM Requesting Provider: DANYA ROTHMAN Attending Provider: DANYA ROTHMAN Report Copy To: Signs & Symptoms: M25.50 Pain in unspecified joint I10 History: [place] Comments: Evaluate Exam: HAND LEFT 3 [facility] ===== HAND LEFT 3 S 11/22/2020 10:54 [...] osteoarthritis. Electronically signed: Neftali Ralph. Transcribed by: [email or web address], User Resident: Electronically Signed by: NEFTALI RALPH @ 11/23/2020 09:30 AM Normal [facility] Comment on above: Order Comment: Evalu ate HAND RIGHT 3 [facility] HAND RIGHT 3 [facility] Department of Radiology [address] [place] [id number] ===== Patient Name: ARACELI PÉREZ : 1980 Sex: F Age: Race: White Pt. Location: 264 Patient Status: D Ordered Date: 11/22/2020 10:50:00 AM Completed Date: 11/22/2020 10:54 AM Requesting Provider: DANYA ROTHMAN Attending Provider: DANYA ROTHMAN Report Copy To: Signs & Symptoms: M25.50 Pain in unspecified joint I10 History: [place] Comments: Evaluate Exam: HAND RIGHT 3 [facility] [...] report. Electronically signed: Neftali Ralph. Transcribed by: [email or web address], User Resident: JOSIANE LAWRENCE Electronically Signed by: NEFTALI RALPH @ 11/23/2020 12:29 PM I personally read this/these film(s) with this resident Normal [facility] Comment on above: Order Comment: Evalu ate PILAR Irvinn 11-22-2020 IgA [Mass/Vol] 410 mg/dL Normal 60-413 [facility] Comment on above: Performed By: #### 9 9744, 16264, 39936 #### [facility] [address] [place] [address], [facility] IgG [Mass/Vol] 908 mg/dL Normal 591-1540 [facility] Comment on above: Performed By: #### 9 9744, 75089, 72763 #### [facility] [address] [place] [address], [facility] IgM [Mass/Vol] 58 mg/dL Normal 54-285 [facility] Comment on above: Performed By: #### 9 9744, 27061, 55630 #### [facility] [address] [place] [address], [facility] RHEUMATOID FACTOR SERUMon RA <20 Normal 0-20 [facility] Comment on above: Performed By: #### 9 9744, 01320, 40517 #### [facility] [address] [place] [address], [facility] SEDIMENTATION RATEon 021 SED RATE 4 mm/hr Normal 0-20 [facility] Comment on above: Performed By: #### 5 0103, 82585 #### [facility] [address] t cell subset analysison CD3 % 86.24 % Normal 65.00-90.00 [facility] Comment on above: Order Comment: This test was developed and its performance characteristics determined by the [facility] [[email or web address] Flow Cytometry Laboratory. It has not been cleared or approved by the U.S. Food and Drug Administration. Performed By: #### 9 0116 #### [facility] [address] [place] [address], [facility] CD3 ABSOLUTE 1963 cells/mm3 Normal 760-2130 The [facility] Comment on above: Order Comment: This test was developed and its performance characteristics determined by the [facility] [[email or web address]] Flow Cytometry Laboratory. It has not been cleared or approved by the U.S. Food and Drug Administration. Performed By: #### 9 0116 #### [facility] [address] CD4 % 67.10 % Normal 40.00-70.00 [facility] Comment on above: Order Comment: This test was developed and its performance characteristics determined by the [facility] [[email or web address]] Flow Cytometry Laboratory. It has not been cleared or approved by the U.S. Food and Drug Administration. Performed By: #### 9 0116 #### [facility] [address] CD4 ABSOLUTE 1527 cells/mm3 High 430-1185 [facility] Comment on above: Order Comment: This test was developed and its performance characteristics determined by the [facility] [[email or web address]] Flow Cytometry Laboratory. It has not been cleared or approved by the U.S. Food and Drug Administration. Performed By: #### 9 0116 #### [facility] [address] CD4:CD8 RATIO 3.79 Normal 1.00-4.00 The [facility] Comment on above: Order Comment: This test was developed and its performance characteristics determined by the [facility] [[email or web address]] Flow Cytometry Laboratory. It has not been cleared or approved by the U.S. Food and Drug Administration. Performed By: #### 9 0116 #### [facility] [address] CD8 % 17.70 % Normal 15.00-40.00 The [facility] Comment on above: Order Comment: This test was developed and its performance characteristics determined by the [facility] [[email or web address]] Flow Cytometry Laboratory. It has not been cleared or approved by the U.S. Food and Drug Administration. Performed By: #### 9 0116 #### [facility] [address] CD8 ABSOLUTE 403 cells/mm3 Normal 180-865 The [facility] Comment on above: Order Comment: This test was developed and its performance characteristics determined by the [facility] [[email or web address]] Flow Cytometry Laboratory. It has not been cleared or approved by the U.S. Food and Drug Administration. Performed By: #### 9 0116 #### [facility] [address] Vital Signs Date Time Vital Sign Value Performing Clinician Facility 12-25-2023 12:14-0500 Body height 162.6 cm Pmh 1 [facility] 12-25-2023 12:14-0500 Body mass index (BMI) [Ratio] 46.35 kg/m2 P[facility] 1 [facility] 12-25-2023 12:14-0500 Body weight 122.47 kg Pmh 1 [facility] 12-05-2023 09:41-0400 Body mass index (BMI) [Ratio] 42.89 kg/m2 Yu Guerrier [employer] BAKER-CHIEF DEPUTY CORONER Work Phone: [facility] 12-05-2023 09:41-0400 Body weight 113.4 kg Yu Guerrier BREAD [employer] PASTRY BAKER-CHIEF DEPUTY CORONER Work Phone: [facility] 12-05-2023 09:41-0400 Diastolic blood pressure 77 mm[Hg] Yu Guerrier [employer]READ [employer] PASTRY BAKER-CHIEF DEPUTY CORONER Work Phone: [facility] 12-05-2023 09:41-0400 Heart rate 83 /min Yu Guerrier BREAD [employer] PASTRY BAKER-CHIEF DEPUTY CORONER Work Phone: [facility] 12-05-2023 09:41-0400 Systolic blood pressure 125 mm[Hg] Yu Guerrier [employer]READ [employer] PASTRY BAKER-CHIEF DEPUTY CORONER Work Phone: [facility] 06-01-2023 10:32-0400 Body height 162.6 cm Irwin Rodriguez MD Work Phone: [facility] 06-01-2023 10:32-0400 Body mass index (BMI) [Ratio] 43.06 kg/m2 Irwin Rodriguez MD Work Phone: [facility] 06-01-2023 10:32-0400 Body temperature 98.29 [degF] Irwin Rodriguez MD Work Phone: [facility] [employer] [facility] 06-01-2023 10:32-0400 Body weight 113.85 kg Irwin Rodriguez MD Work Phone: [facility] [employer] [facility] 06-01-2023 10:32-0400 Diastolic blood pressure 101 mm[Hg] Irwin Rodriguez MD Work Phone: [facility] [employer] [facility] 06-01-2023 10:32-0400 Heart rate 78 /min Irwin Rodriguez MD Work Phone: [facility] [employer] [facility] 06-01-2023 10:32-0400 Respiratory rate 18 /min Irwin Rodriguez MD Work Phone: [facility] [employer] [facility] 06-01-2023 10:32-0400 SaO2% (BldA) [Mass fraction] 100 % Irwin Rodriguez MD Work Phone: [facility] [employer] [facility] 06-01-2023 10:32-0400 Systolic blood pressure 145 mm[Hg] Irwin Rodriguez MD Work Phone: [facility] [employer] [facility] 04-25-2023 12:38-0400 Body height 162.6 cm Db Whitten MD Work Phone: [facility] [employer] [facility] 04-25-2023 12:38-0400 Body mass index (BMI) [Ratio] 42.05 kg/m2 Db Whitten MD Work Phone: [facility] [employer] [facility] 04-25-2023 12:38-0400 Body weight 111.13 kg Db Whitten MD Work Phone: [facility] [employer] [facility] 04-25-2023 12:38-0400 Diastolic blood pressure 99 mm[Hg] Db Whitten MD Work Phone: [facility] [employer] [facility] 04-25-2023 12:38-0400 Heart rate 93 /min Db Whitten MD Work Phone: [facility] [employer] [facility] 04-25-2023 12:38-0400 Systolic blood pressure 146 mm[Hg] Db Whitten MD Work Phone: [facility] 03-16-2023 10:58-0500 Body height 162.6 cm Pmh 1 [facility] [employer] [facility] 03-16-2023 10:58-0500 Body mass index (BMI) [Ratio] 42.05 kg/m2 Pmh 1 [facility] [employer] [facility] 03-16-2023 10:58-0500 Body weight 111.13 kg Pmh 1 [facility] [employer] [facility] 03-01-2023 14:45-0500 Body height 162.56 cm Kisha Barkley Other [employer] Other 03-01-2023 14:45-0500 Body mass index (BMI) [Ratio] 42.05 kg/m2 Kisha Barkley Other [employer] Other 03-01-2023 14:45-0500 Body temperature 97.5 [degF] Kisha Barkley Other [employer] Other 03-01-2023 14:45-0500 Body weight 111.13 kg Kisha Barkley Other [employer] Other 03-01-2023 14:45-0500 Respiratory rate 18 /min Kisha Cordovaler Other [employer] Other 03-01-2023 14:45-0500 SaO2% (BldA) [Mass fraction] 99 % Kisha Barkley Other [employer] Other 10-26-2022 09:00-0400 Body height 162.56 cm Albaro Wilson Other [employer] Other 10-26-2022 09:00-0400 Body mass index (BMI) [Ratio] 43.25 kg/m2 Albaro Wilson Other [employer] Other 10-26-2022 09:00-0400 Body weight 114.31 kg Albaro Wilson Other [employer] [facility] [employer] Other 10-26-2022 09:00-0400 Diastolic blood pressure 80 mm[Hg] Albaro Carlitosmague Other [employer] Other 10-26-2022 09:00-0400 Systolic blood pressure 122 mm[Hg] Albaro Wilsno Other [facility] [employer] Other 09-12-2022 14:20-0400 Diastolic blood pressure 70 mm[Hg] [facility] 09-12-2022 14:20-0400 Heart rate 70 /min [facility] 09-12-2022 14:20-0400 Respiratory rate 16 /min [facility] 09-12-2022 14:20-0400 SaO2% (BldA) [Mass fraction] 97 % [facility] 09-12-2022 14:20-0400 Systolic blood pressure 131 mm[Hg] [facility] 09-12-2022 12:54-0400 Body height 162.56 cm [facility] 09-12-2022 12:54-0400 Body temperature 98.2 [degF] [facility] 09-12-2022 12:54-0400 Body weight 113.39 kg [facility] Encounters Encounter Date Encounter Type Care Provider Facility Start: 07-08-2024 End: 07-09-2024 Telephone encounter Janis Vidal Neurology, A Department of [facility] Start: 07-08-2024 End: 07-08-2024 ambulatory [facility] Start: 07-03-2024 End: 07-03-2024 ambulatory [facility] Start: 06-16-2024 End: 06-16-2024 Telephone encounter Christy Vidal Neurology, A Department of [facility] Comment on above: Question appointment Start: 05-01-2025 ambulatory [facility] Start: 06-02-2024 End: 06-02-2024 Bambofernanda flowsomari Williamson MD Work Phone: [facility] Start: 06-02-2024 End: 06-02-2024 Bamboo flowsheet Chau Williamson MD Work Phone: [facility] [...] 05-28-2024 ambulatory Greyson Lincoln Start: 05-15-2024 ambulatory [facility] Start: 01-21-2024 End: 01-21-2024 ambulatory [facility] Start: 01-11-2024 End: 01-11-2024 Telephone encounter Fabiola Berman CMA [facility] Start: 12-31-2023 End: 12-31-2023 Evaluation and management of inpatient DB RUDI [facility] Start: 12-25-2023 End: 12-25-2023 ambulatory [facility] Pat Phone Call Provider 1 [facility] - Pre Admit Start: 12-25-2023 End: 12-25-2023 ambulatory [facility] Start: 12-05-2023 End: 12-05-2023 Patient encounter procedure Yu Guerrier BREAD AND PASTRY BAKER-CHIEF DEPUTY CORONER Work Phone: [facility] Comment on above: Encounter for screen ing colonoscopy (Primary Dx) Start: 12-05-2023 End: 12-05-2023 ambulatory YU GUERRIER [facility] Start: 11-20-2023 End: 11-20-2023 Telephone encounter Yu Watson Fareed BREAD AND PASTRY BAKER-CHIEF DEPUTY CORONER Work Phone: [facility] Start: 10-22-2023 End: 10-22-2023 ambulatory LASHAUN ANDRE [facility] Start: 06-01-2023 End: 06-01-2023 Documentation procedure Osiris Colmenares [facility] - [facility] Oncology Start: 06-01-2023 End: 06-01-2023 Office outpatient visit 15 minutes Irwin Rodriguez MD Work Phone: Anabel Colmenares [facility] Comment on above: Factor 5 Leiden muta tion, heterozygous ([facility]) (Primary Dx) Start: 04-25-2023 End: 04-25-2023 Office outpatient visit 15 minutes Db Whitten MD Work Phone: [facility] Comment on above: 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 (Primary Dx) Start: 03-19-2023 Telephone encounter Db Whitten MD Work Phone: [facility] Start: 03-16-2023 End: 03-16-2023 ambulatory h Pat Phone Call Provider 1 [facility] Admit Start: 03-01-2023 End: 03-01-2023 ambulatory Kisha Barkley Other [employer] Other Start: 03-01-2023 Office outpatient visit 25 minutes Kisha Barkley [facility] Start: 10-26-2022 End: 10-26-2022 ambulatory Albaro Wilson Other [employer] Other Start: 10-26-2022 Office outpatient visit 15 minutes Albaro Wilson [facility] Start: 09-19-2022 End: 09-19-2022 ambulatory Albaro Wilson Other [employer] Other Start: 09-19-2022 Telephone encounter Albaro Sharma [facility] Start: 09-12-2022 End: 09-12-2022 ambulatory Siva You Facility:[facility] Start: 09-12-2022 End: 09-12-2022 Admission to same day surgery center [facility] Work Phone: Start: 09-12-2022 End: 09-12-2022 ambulatory NON STAFF [facility] Work Phone: Start: 06-07-2022 ambulatory SHAD SHAMMO Facility:H 1 Start: 04-21-2022 End: 04-22-2022 ambulatory SHAD SHAMMO Facility:[facility] Start: 04-03-2022 End: 04-03-2022 ambulatory SHAD SHAMMO Facility:H1 Start: 01-31-2022 End: 02-01-2022 ambulatory LASHAUN ANDRE Facility:[facility]1 Start: 01-10-2022 End: 01-11-[address] OMAR GUIDRY . Facility:[facility] Start: 12-20-2021 End: 12-20-2021 ambulatory NON STAFF Facility:[facility] Start: 12-20-2021 End: 12-20-2021 ambulatory NON STAFF [facility] Work Phone: Start: 12-20-2021 End: 12-20-2021 Patient encounter procedure DO Ron Rodrigo Work Phone: [facility] Start: 12-20-2021 End: 12-21-[address] OMAR GUIDRY . Facility:[facility]1 Start: 12-10-2021 End: 12-11-2021 ambulatory SHAD SHAMMO Facility:[facility]1 Start: 12-06-2021 End: 12-07-2021 ambulatory SHAD SHAMMO Facility:[facility]1 Start: 11-08-2021 End: 11-09-2021 ambulatory SHAD SHAMMO Facility:[facility]1 Start: 11-03-2021 Encounter for genera l adult medical examination without abnormal findings DR DOCTOR HORNER [facility] Start: 11-01-2021 End: 11-02-[address] DOCTOR [...] Work Phone: Start: 12-31-2023 Colonoscopy Fabiola Cullen [employer] Start: 09-12-2022 Esophagogastroduodenoscopy Start: 07-05-2022 Adult depression screening assessment [facility] 1 Start: 07-19-2020 Mammography Chau Williamson MD Work Phone: Plan of Treatment Date Care Activity Detail Author Start: 12-30-2033 Screening for malignant neoplasm of colon [facility] Start: 12-30-2028 Screening for malignant neoplasm of colon Colonoscopy [facility] Start: 09-28-2028 DTaP,Tdap and Td Vaccines (2 - Td or Tdap) DTaP,Tdap and Td Vaccines (2 - Td or Tdap) [facility] Start: 07-08-2025 Adult BMI Screening Adult BMI Screening [facility] Start: 07-08-2025 Tobacco Screening Tobacco Screening [facility] Start: 12-30-2024 Adult BMI Screening Adult BMI Screening [facility] Start: 12-30-2024 Tobacco Screening Tobacco Screening [facility] Start: 12-24-2024 Adult BMI Screening Adult BMI Screening [facility] Start: 12-24-2024 Tobacco Screening Tobacco Screening [facility] Start: 12-04-2024 Adult BMI Screening Adult BMI Screening [facility] Start: 12-04-2024 Tobacco Screening Tobacco Screening [facility] Start: 10-08-2024 End: 10-08-2024 Patient encounter procedure 10/08/2024 9:00 AM EDT Office Visit [facility] [place] [address] Freedom Hsu, VANIA [address] [facility] [place] [address] [facility] [place] Start: 10-06-2024 Influenza vaccination [facility] Start: 07-08-2024 End: 07-08-2024 Patient encounter procedure 07/08/2024 9:00 AM EDT Office Visit [facility] [place] [address] [place] [address] Freedom Hsu PA-C [address], [address] [place] [phone] [facility] [place] Start: 07-03-2024 End: 07-03-2024 Patient encounter procedure [facility] Start: 06-02-2024 End: 06-02-2024 Patient encounter procedure 06/02/2024 10:20 AM EDT Office Visit [facility] [address] [place] [phone] Chau Williamson MD [address] [place] [address] Arrived [facility] Comment on above: Arrived Start: 05-31-2024 Adult BMI Screening Adult BMI Screening [facility] Start: 04-24-2024 Adult BMI Screening Adult BMI Screening [facility] Start: 04-24-2024 Tobacco Screening Tobacco Screening [facility] Start: 03-19-2024 Tobacco Screening Tobacco Screening [facility] Start: 03-16-2024 Adult BMI Screening Adult BMI Screening [facility] Start: 01-02-2024 Tobacco Screening Tobacco Screening [facility] Start: 12-31-2023 End: 12-31-2023 Admission to same day surgery center [facility] Comment on above: COLONOSCOPY DIAGNOSTIC / SCREENING [4537 8 (CPT )] Start: 12-31-2023 End: 12-31-2023 Anesthesia consultation 12/31/2023 12:00 PM EST Anesthesia Event [facility] [address] [place] [address] Derick Snyder, DO [address] [place] [address] [facility] Start: 12-31-2023 End: 12-31-2023 Colonoscopy flx dx w/collj spec when pfrmd [place] [facility] Start: 12-31-2023 Subsequent hospital visit by physician [facility] Start: 12-17-2023 End: 12-17-2023 ambulatory 12/17/2023 3:40 PM EST Support Visit [facility] Ad[facility] [address] [facility] [address] [facility] Ad[facility] Start: 10-07-2023 Influenza vaccination Influenza Vaccine [facility] Start: 07-06-2023 Depression Screening Depression Screening [facility] Start: 06-01-2023 End: 06-01-2023 Patient encounter procedure 06/01/2023 10:30 AM EDT Office Visit Anabel Keane Coffey [facility] [address] [place] [phone] Irwin Rodriguez MD [address] [place] [address] [address] [place] [address] Anabel Keane Coffey [facility] Start: 04-27-2023 End: 04-27-2023 Patient encounter procedure 04/27/2023 3:15 PM EDT Office Visit Anabel Keane Coffey [facility] [address] [place] [phone] Irwin Rodriguez MD [address] [place] [address] Anabel Colmenares [facility] Start: 03-19-2023 End: 03-19-2023 Patient encounter procedure 03/19/2023 3:45 PM EST Office Visit [facility] [address] [place] [address] [place] [address] [place] [phone] Db Whitten MD [address] [place] [address] [facility] Start: 03-19-2023 End: 03-19-2023 Admission to same day surgery center 03/19/2023 9:30 AM EST - 03/19/2023 10:00 AM EST Surgery [facility] [address] [place] [address] Db Whitten MD [address] [place] [address] CYSTOSCOPY WITH BLADDER IRRIGATION AND [facility] BLADDER SOLUTION [80316 (CPT )] [facility] Comment on above: CYSTOSCOPY WITH BLADDER IRRIGATION AND [facility] BLADDER SOLUTION [89708 (CPT )] Start: 03-19-2023 End: 03-19-2023 Cystourethroscopy [facility] Start: 03-19-2023 Subsequent hospital visit by physician 03/19/2023 9:30 AM EST Hospital Encounter [facility] [address] [facility] [place] [phone] Db Whitten MD [address] [place] [address] [facility] Start: 10-06-2022 Influenza vaccination Influenza Vaccine [facility] Start: 09-12-2022 [facility] Start: 12-20-2021 MR Unspecified body region [facility] Start: 12-20-2021 MRI of head MR head/brain wo/w con [facility] Start: 07-19-2021 Screening for malignant neoplasm of breast Mammogram [facility] Start: 2008 Screening for malignant neoplasm of cervix [facility] Start: 09-05-1999 Screening for malignant neoplasm of cervix Pap Smear [facility] Start: 1996 Adult BMI Follow Up Plan Adult BMI Follow Up Plan [facility] Start: 1978 Screening for malignant neoplasm of colon [facility] Start: 1978 Tobacco Counseling Tobacco Counseling [facility] End: 12-04-2024 Colonoscopy Colonoscopy GI Routine Encounter for screening colonoscopy 1 Occurrences starting 12/05/2023 until 12/04/2024 [facility] Work Phone: Comment on above: 1 Occurrences starting 12/05/2023 until 12/04/2024 Dermatopathology exam Dermatopat hology exam Pathology and Cytology Timed Neoplasm of unspecified behavior of bone, soft tissue, and skin Release Upon Ordering for 1 Occurrences starting 06/02/2024 [facility] Work Phone: Comment on above: Release Upon Ordering for 1 Occurrences starting 06/02/2024 Patient Education Hiatal Hernia (DC) [facility] Work Phone: Immunizations Immunization Date Immunization Notes Care Provider Fa lilia 09-28-2018 tetanus toxoid, redu moon diphtheria toxoid, and acellular pertussis vaccine, adsorbed [facility] 1 [facility] Payers Date Payer Category Payer Medicaid [id number] 2022 Medicaid [id number] 2021 Self-pay [id number] 1978 Unknown [id number] 2.16.84 0.1.650985.3.579.2.593 1978 Unknown [id number] 2.16.84 0.1.561504.3.579.2.593 1978 Unknown [id number] 2.16.84 0.1.779018.3.579.2.593 1978 Unknown [id number] 2.16.84 0.1.234302.3.579.2.593 1978 Unknown [id number] 2.16.84 0.1.420725.3.579.2.593 1978 Unknown [id number] 2.16.84 0.1.540277.3.579.2.593 1978 Unknown [id number] 2.16.84 0.1.763824.3.579.2.593 1978 Unknown [id number] 2.16.84 0.1.204013.3.579.2.593 1978 Unknown [id number] 2.16.84 0.1.727691.3.579.2.593 1978 Unknown [id number] 2.16.84 0.1.934956.3.579.2.593 1978 Unknown [id number] 2.16.84 0.1.423896.3.579.2.593 1978 Unknown [id number] 2.16.84 0.1.876275.3.579.2.593 1978 Unknown [id number] 2.16.84 0.1.995943.3.579.2.593 1978 Unknown [id number] 2.16.84 0.1.400284.3.579.2.1259 1978 Unknown [id number] 2.16. 840.1.732943.3.579.2.1286 1978 Unknown [id number] .16. 840.1.361063.3.579.2.128 1978 Unknown [id number] .16. 840.1.650539.3.579.2.128 1978 Unknown [id number] .16. 840.1.332756.3.579.2.128 1978 Unknown [id number] 2.16.8 40.1.220745.3.579.2.1286 1978 Unknown [id number] 2.16.8 40.1.140310.3.579.2.128 1978 Unknown [id number] 2.16. 840.1.667660.3.579.2.1286 1978 Unknown [id number] 2.16.8 40.1.799839.3.579.2.1286 1959 Medicaid [id number] Unknown [id number] 2.16.8 40.1.903259.3.579.2.531 Unknown [id number] 2.16.8 40.1.014905.3.579.2.531 Social History Date Type Detail Facility Tobacco smoking stat [facility] Unknown if ever smoked [facility] Work Phone: Start: 1980 Sex Assigned At Female F [facility] Start: 09-12-2022 Tobacco smoking stat [facility] Smoker (finding) [facility] Start: 03-18-2020 End: 07-05-2022 Sex Assigned At [facility] Start: 03-19-2023 End: 12-05-2023 Tobacco smoking status NHIS Smokes tobacco daily [facility] History of tobacco use Cigarette Smoker [facility] Start: 03-18-2020 End: 03-19-2023 Cigarettes smoked current (pack per day) - Reported 0.3 [facility] Start: 03-19-2023 End: 12-05-2023 Tobacco use and exposure Smokeless tobacco non-user [facility] Start: 04-25-2023 End: 07-08-2024 Alcoholic beverage intake Current non-drinker of alcohol (finding) [facility] How often to you hav e a drink containing alcohol? Never [facility] How many standard drinks containing alcohol do you have on a typical day? Patient does not drink [facility] Start: 06-21-2022 Tobacco Comment Has a patch an d down to 4 cig. Per day [facility] Start: 1980 Sex assigned at Not on file [facility] Start: 09-10-2014 Sex Female (finding) [facility] Tobacco smoking stat us NHIS Tobacco smoking consumption unknown [facility] Start: 05-21-2024 Gender identity Identifies as female gender (finding) [facility] Medical Equipment Procedure Code Equipment Code Equipment Origin al Text Equipment Identifier Dates Graft Bn 5ml Yomi Puros Strl Lf - [id number] Start: 07-05-2022 Olympia Yasargil Titanium Aneurysm Clip [id number] Start: 07-05-2022 Cover Bur Hl 14m m Lp Tab Unv Neuro 2 Thk.5mm Ns Lf - [id number] Start: 07-05-2022 Cover Bur Hl Crn fcl 10mmx.5mm Lp Tab Strl Lf Disp - [id number] Start: 07-05-2022 Plate Bn 16mm 2 Hl Lp Unv Neuro Ii Crnmxf Ti Ns Lf 1.5mm Scr - [id number] Start: 07-05-2022 Screw Bn 4mm 1.5 mm Slf Drl Xpn Crnmxf Strl - [id number] Start: 07-05-2022 Goals Date Patient Goal Desired Activity /State Clinical Notes 12-20-2021 to 07-08-2024 Telephone Encounter - Janis Mckinley - 07/08/2024 3:48 PM EDTTelephone Encounter - Janis Mckinley - 07/08/2024 3:48 PM EDTTelephone Encounter - Janis Mckinley - 07/08/2024 3:48 PM EDT Note Date & Type Note Facility 07-08-2024 Miscellaneous Notes PA for Nurtec pending via CMM with osborne # [id number] Approved with [facility] case # [id number] valid till 01/03/25. Approved for 8 per 30 days documented in this encounter [facility] 07-08-2024 Telephone encounter Note PA for Nurtec pending via CMM with osborne # [id number] [facility] 07-08-2024 Telephone encounter Note [facility] # [id number] valid till 01/03/25. Approved for 8 per 30 days [facility] 06-16-2024 Miscellaneous Notes Received new patient referral. Please call patient to schedule a new patient appointment for Frequent headaches IS THIS DUE TO AN ACCIDENT? IS THIS WORKER'S COMP? PLEASE VERIFY IF THIS IS WORKERS COMP AND DOCUMENT (We do not accept any new workers comp cases) WHAT INSURANCE? HAVE YOU EVER BEEN SEEN BY A NEUROLOGIST BEFORE? Tourist Guide spoke to patient regarding new patient appointment for headaches. Patient stated during the conversation previously seen for aneurysm and had brain surgery two years ago. Please advise can patient be seen by Dr Henson in [place] for headaches or if she should be seen by Dr Bautista. Patient prefers [place] location . Patient can be reached at [phone]. Thanks so much Patient had aneurysm clipped in 2022 by [facility]. Okay to schedule for headaches. Tourist Guide spoke to patient regarding scheduling with Dr Henson in [place]. Patient was driving will call back into the office to schedule. documented in this encounter [facility] 06-16-2024 Telephone encounter Note Received new patient referral. Please call patient to schedule a new patient appointment for Frequent headaches IS THIS DUE TO AN ACCIDENT? IS THIS WORKER'S COMP? PLEASE VERIFY IF THIS IS WORKERS COMP AND DOCUMENT (We do not accept any new workers comp cases) WHAT INSURANCE? HAVE YOU EVER BEEN SEEN BY A NEUROLOGIST BEFORE? [facility] 06-16-2024 Telephone encounter Note Tourist Guide spoke to patient regarding new patient appointment for headaches. Patient stated during the conversation previously seen for aneurysm and had brain surgery two years ago. Please advise can patient be seen by Dr Henson in [place] for headaches or if she should be seen by Dr Bautista. Patient prefers [place] location . Patient can be reached at [phone]. Thanks so much [facility] 06-16-2024 Telephone encounter Note Patient had aneurysm clipped in 2022 by ALIA. Irineo to schedule for headaches. [facility] 06-16-2024 Telephone encounter Note Tourist Guide spoke to patient regarding scheduling with Dr Henson in [place]. Patient was driving will call back into the office to schedule. [facility] 06-02-2024 History of Present illness Narrative [...] TISSUE, AND SKIN (3) Vertex of Scalp [place] pearly papule Lesion biopsy Type of biopsy: [...] pending biopsy results documented in this encounter [facility] 01-21-2024 Note [place] [facility] Subjective Araceli Pérez is a [...] directed., Disp: 90 tablet, Rfl: 3 omega 0-aof-rzu-fish oil 300-1,000 mg capsule,delayed release(DR/EC), , Disp: [...] function stable Chol (more content not included)... [facility] 01-11-2024 Miscellaneous Notes ----- Message from Dr. Db Elizabeth DO sent at 01/10/2024 7:23 AM EST ----- Please let patient know that she had a colon polyp which was precancerous and I recommend surveillance colonoscopy in 5 years unless problems. Thanks, Dr. Hough I gave the patient the results message from Dr Elizabeth. She stated complete understanding. documented in this encounter [facility] 01-11-2024 Telephone encounter Note ----- Message from Dr. Db Elizabeth DO sent at 01/10/2024 7:23 AM EST ----- Please let patient know that she had a colon polyp which was precancerous and I recommend surveillance colonoscopy in 5 years unless problems. Thanks, Dr. Hough [facility] 01-11-2024 Telephone encounter Note I gave the patient the results message from Dr Elizabeth. She stated complete understanding. [facility] 12-25-2023 Miscellaneous Notes Preoperative Education Checklist- General Surgery date: 12/31/23 Surgery time: 1200 Arrival time: 1000 1. Bring a photo ID and your insurance card with you the day of surgery. You will check in at the main lobby of the [facility]- registration desk is straight ahead as soon as you walk in. Tell them you are here for surgery. 2. If you have a Living Will/Durable Power of Campus Receptionist for Health Care that is not on [...] after you have bathed. 5. NO nail cayman islander/acrylic on at least one finger. If you are having a hand, wrist or foot surgery then all nail cay[place] islander and artificial/acrylic nails must be removed from [...] please call the Preadmission Testing office at [phone], Mon.-Fri. 7 a.m.-3 p.m. Leave a voicemail [...] taking 0 days prior to procedure omega 5-kwu-hws-fish oil (FISH OIL) 300-1,000 mg capsule,delayed release(DR/EC) [...] documented in this encounter [facility] 12-25-2023 Nurse Note Preoperative Education Checklist- General Surgery date: 12/31/23 Surgery time: 1200 Arrival time: 1000 1. Bring a photo ID and your insurance card with you the day of surgery. You will check in at the main lobby of the [facility]- registration desk is straight ahead as soon as you walk in. Tell them you are here for surgery. 2. If you have a Living Will/Durable Power of Campus Receptionist for Health Care that is not on [...] after you have bathed. 5. NO nail cayman islander/acrylic on at least one finger. If you are having a hand, wrist or foot surgery then all nail cay[place] islander and artificial/acrylic nails must be removed from [...] please call the Preadmission Testing office at [phone], Mon.-Fri. 7 a.m.-3 p.m. Leave a voicemail [...] taking 0 days prior to procedure omega 0-dkb-kmo-fish oil (FISH OIL) 300-1,000 mg capsule,delayed release(DR/EC) [...] Stop taking 0 days prior to procedure [facility] 12-05-2023 History of Present illness Narrative Chief [...] pain Acid reflux Arthritis Asthma Bleeding disorder ([facility]) Factor V(clotting disorder) per patient Cerebral aneurysm Clotting disorder ([facility]) Dental disease Upper dentures, lower partial Depression Dysphagia Endometriosis Factor 5 Leiden mutation, heterozygous ([facility]) Fibromyalgia, primary GERD (gastroesophageal reflux disease) Without esophagitis Hyperlipidemia Hypertension Injury of back Irregular menstruation Leaking of urine Memory loss Menopause Migraine headache Obesity Painful menstruation Pelvic pain Pneumonia Rheumatoid arthritis ([facility]) Seizures ([facility]) 1998 During Septoplasty surgery per chart from [facility]. Sinusitis, chronic Wears partial dentures Past Surgical History: Procedure Laterality Date ADENOIDECTOMY BLADDER SUSPENSION CRANIOTOMY REPAIR ANEURYSM(MCA ANEURYSM CLIPPING) Right 07/05/2022 Performed by Eric Jimenez MD at [facility] CYSTOSCOPY WITH BLADDER IRRIGATION AND [facility] BLADDER SOLUTION N/A 03/19/2023 Performed by Db Whitten MD at [facility] Diagnostic cerebral angiogram N/A 07/06/2022 Performed by Yi Bautista MD at [facility]ATH [facility] Diagnostic cerebral angiogram N/A 01/02/2022 Performed by Yi Bautista MD at [facility] EGD with bx N/A 07/26/2016 Performed by Db Acevedo MD at [facility] ENDOSCOPY ESSURE TUBAL LIGATION FOOT SURGERY Right HYSTERECTOMY 2010 LAPAROSCOPIC CHOLECYSTECTOMY N/A 04/09/2019 Performed by Geovany Bain MD at [facility] NASAL SEPTOPLASTY W/ TURBINOPLASTY OOPHORECTOMY TONSILLECTOMY [...] by mouth nightly., Disp: , Rfl: omega 9-tvz-apf-fish oil (FISH OIL) 300-1,000 mg capsule,delayed release(DR/EC), [...] patient/family/caregiver Referring and communicating with other health home care specialist Encounter for screening colonoscopy [Z12.11] SHANNA SINGH [facility] General Surgery [place] This note was created with the assistance of a speech recognition program. While intending to generate a timely document that accurately reflects the content of the visit, no guarantee can be provided that every grammatical or spelling mistake has been or will be identified or corrected. Thank you for your understanding. SHANNA Singh 12/05/23 1000 documented in this encounter [facility] 11-20-2023 Miscellaneous Notes Patient called to cancel her colonoscopy appointment for today with Yu Guerrier, MECHANIC'S ASSISTANT, as she her child ran away in the middle of the night and she is at the [facility] filling out paperwork. She will call us back later to reschedule her appointment. documented in this encounter [facility] 11-20-2023 Telephone encounter Note Patient called to cancel her colonoscopy appointment for today with Yu Guerrier NP, as she her child ran away in the middle of the night and she is at the [facility] filling out paperwork. She will call us back later to reschedule her appointment. [facility] 10-22-2023 Note Today states that sh elias is out of elavil and does not have appt with PCP until Nov 09- therefore will prescribed short 3 week script to fill [facility] 10-22-2023 Note F/U with PCP as scheduled Andrea lundy [facility] 10-22-2023 Note Lipid abnormalities are stable, continue lipitor 40 mg daily [facility] 10-22-2023 Note Hypertension is stab le and well controlled Continue hydrochlorothiazide, losartan, norvasc [facility] 10-22-2023 Note Currently resolved [facility] 10-22-2023 Note Pt is here for a eig ht month follow up. [facility] 10-22-2023 Note Patient here for 1.5 year follow up hypertension. Still has pain under her right breast, where the bone is . Denies SOB and palpitations. Says she hasn't been lightheaded/dizzy since her aneurysm surgery in June 2022. Review of Systems Musculoskeletal: Positive for arthritis, back pain and joint pain. Neurological: Positive for headaches. All other systems reviewed and are negative. [facility] 10-22-2023 Note [facility] CARDIOLOGY PROGR ESS [...] but denied syncope. States that Neuro-surg at [facility] is planning surgery for aneurysm. Previous [...] 40 mg by mouth at bedtime. omega 2-sgx-sjl-fish oil 300-1,000 mg capsule,delayed release(DR/EC) omeprazole (PriLOSEC) [...] 91 91 91 (more content not included)... [facility] 06-01-2023 History of Present illness Narrative Patient is here for follow up with Dr. Rodriguez. Orders received to follow up prn. Copy of recent labs provided and pcp info for Dr. Banuelos. documented in this encounter [facility] 06-01-2023 History of Present illness Narrative [facility] 06/01/23 Araceli Pérez is a 42 [...] She has been followed by Dr. Boyd ([facility]), due to relocation she came [...] pain Acid reflux Arthritis Asthma Bleeding disorder ([facility]) Factor V(clotting disorder) per patient Cerebral aneurysm Clotting disorder ([facility] Dental disease Upper dentures, lower partial Depression Dysphagia Endometriosis Factor 5 Leiden mutation, heterozygous ([facility]) Fibromyalgia, primary GERD (gastroesophageal reflux disease) Without esophagitis Hyperlipidemia Hypertension Injury of back Irregular menstruation Leaking of urine Memory loss Menopause Migraine headache Obesity Painful menstruation Pelvic pain Pneumonia Rheumatoid arthritis ([facility]) Seizures ([facility]) 1998 During Septoplasty surgery per chart from [facility]. Sinusitis, chronic Wears partial dentures Past Surgical History: Procedure Laterality Date ADENOIDECTOMY BLADDER SUSPENSION CRANIOTOMY REPAIR ANEURYSM(MCA ANEURYSM CLIPPING) Right 07/05/2022 Performed by Eric Jimenez MD at [facility] CYSTOSCOPY WITH BLADDER IRRIGATION AND [facility] BLADDER SOLUTION N/A 03/19/2023 Performed by Db Whitten MD at [facility] Diagnostic cerebral angiogram N/A 07/06/2022 Performed by Yi Bautista MD at [facility] CARD[facility]AC CATH LABS Diagnostic cerebral angiogram N/A 01/02/2022 Performed by Yi Bautista MD at [facility] EGD with bx N/A 07/26/2016 Performed by Db Acevedo MD at [facility] ENDOSCOPY ESSURE TUBAL LIGATION FOOT SURGERY Right HYSTERECTOMY 2010 LAPAROSCOPIC CHOLECYSTECTOMY N/A 04/09/2019 Performed by Geovany Bain MD at [facility] NASAL SEPTOPLASTY W/ TURBINOPLASTY OOPHORECTOMY TONSILLECTOMY [...] 0 Dose: 1 spray Signed by: LYN MaguireCHIEF DEPUTY CORONER 4 mg, alternating nares, As needed Commonly known as: NARCAN omega 7-err-vfw-fish oil 300-1,000 mg capsule,delayed release(DR/EC) Refills: 0 [...] and Hemostatic Factor 5 Leiden mutation, heterozygous ([facility]) - Primary Impression: Heterozygous Factor 5 Leiden [...] this note were generated using voice recognition Chew[employer] dictation software. Although every effort was made to ensure the accuracy of this automated statistician mathematical, some errors in statistician mathematical may have occurred. CC: Patient Care Team: [...] Shad Elliott APRN-CNP documented in this encounter [facility] 04-25-2023 Evaluation + Plan note Associated Problem(s): Mixed stress and urge urinary incontinence No constipation no dry mouth. Will start her on 5 mg VESIcare. Refer her to Dr. Engle. Certainly made need some urodynamic study as well. Deferred to his evaluation and management. [facility]-25-2023 Miscellaneous Notes Associated Problem(s): Mixed stress and urge urinary incontinence No constipation no dry mouth. Will start her on 5 mg VESIcare. Refer her to Dr. Engle. Certainly made need some urodynamic study as well. Deferred to his evaluation and management. documented in this encounter [facility] 04-25-2023 History of Present illness Narrative Images from the original note were not included. [address] [place] [address] A [facility] [id number] Patient: Araceli Pérez Date of : 1980 [...] pain Acid reflux Arthritis Asthma Bleeding disorder ([facility]) Factor V(clotting disorder) per patient Cerebral aneurysm Clotting disorder ([facility]) Dental disease Upper dentures, lower partial Depression Dysphagia Endometriosis Factor 5 Leiden mutation, heterozygous ([facility]) Fibromyalgia, primary GERD (gastroesophageal reflux disease) Without esophagitis Hyperlipidemia Hypertension Injury of back Irregular menstruation Leaking of urine Memory loss Menopause Migraine headache Obesity Painful menstruation Pelvic pain Pneumonia Rheumatoid arthritis ([facility]) Seizures ([facility]) 1998 During Septoplasty surgery per chart from [facility]. Sinusitis, chronic Wears partial dentures Past Surgical History: Procedure Laterality Date ADENOIDECTOMY BLADDER SUSPENSION CRANIOTOMY REPAIR ANEURYSM(MCA ANEURYSM CLIPPING) Right 07/05/2022 Performed by Eric Jimenez MD at [facility] CYSTOSCOPY WITH BLADDER IRRIGATION AND [facility] BLADDER SOLUTION N/A 03/19/2023 Performed by Db Whitten MD at [facility] Diagnostic cerebral angiogram N/A 07/06/2022 Performed by Yi Bautista MD at [facility] CARDIAC CATH LABS Diagnostic cerebral angiogram N/A 01/02/2022 Performed by Yi Bautista MD at [facility]ATH [facility] EGD with bx N/A 07/26/2016 Performed by Db Acevedo MD at [facility] ENDOSCOPY ESSURE TUBAL LIGATION FOOT SURGERY Right HYSTERECTOMY 2011 LAPAROSCOPIC CHOLECYSTECTOMY N/A 04/09/2019 Performed by Geovany Bain MD at [facility] NASAL SEPTOPLASTY W/ TURBINOPLASTY OOPHORECTOMY TONSILLECTOMY [...] for opioid reversal. 1 each 0 omega 4-pnt-rob-fish oil (FISH OIL) 300-1,000 mg capsule,delayed release(DR/EC) [...] day. Plan: Renal bladder ultrasound. Cystoscopy urodynamics [facility] bladder solution. Current Assessment & Plan [...] for your understanding. documented in this encounter [employer] 03-19-2023 Miscellaneous Notes Return the office about 1 month. Please cancel the patient's appointment today for 3:45. documented in this encounter [employer] 03-19-2023 Telephone encounter Note Return the office about 1 month. Please cancel the patient's appointment today for 3:45. [employer] Work Phone: 03-16-2023 Nurse Note Preoperative Education Checklist- General Surgery date: 03/19/23 Surgery time: 930a Arrival time: 830a 1. Bring a photo ID and your insurance card with you the day of surgery. You will check in at the main lobby of the [facility]- registration desk is straight ahead as soon as you walk in. Tell them you are here for surgery. 2. If you have a Living Will/Durable Power of Campus Receptionist for Health Care that is not on [...] after you have bathed. 5. NO nail cayman islander/acrylic on at least one finger. If you are having a hand, wrist or foot surgery then all nail cayman islander and artificial/acrylic nails must be removed from [...] please call the Preadmission Testing office at [phone], Mon.-Fri. 7 a.m.-3 p.m. Leave a voicemail [...] taking 0 days prior to procedure omega 9-xmb-iee-fish oil (FISH OIL) 300-1,000 mg capsule,delayed release(DR/EC) Stop taking 0 days prior to procedure omeprazole (PriLOSEC) 40 mg capsule Take morning of procedure rimegepant (NURTEC ODT) 75 mg tablet,disintegrating Stop taking 0 days prior to procedure tiZANidine (ZANAFLEX) 2 mg tablet Stop taking 0 days prior to procedure [facility] [employer] 03-16-2023 Miscellaneous Notes Preoperative Education Checklist- General Surgery date: 03/19/23 Surgery time: 930a Arrival time: 830a 1. Bring a photo ID and your insurance card with you the day of surgery. You will check in at the main lobby of the [facility]- registration desk is straight ahead as soon as you walk in. Tell them you are here for surgery. 2. If you have a Living Will/Durable Power of Campus Receptionist for Health Care that is not on [...] after you have bathed. 5. NO nail cayman islander/acrylic on at least one finger. If you are having a hand, wrist or foot surgery then all nail cayman islander and artificial/acrylic nails must be removed from [...] please call the Preadmission Testing office at [phone], Mon.-Fri. 7 a.m.-3 p.m. Leave a voicemail [...] taking 0 days prior to procedure omega 4-dei-xlo-fish oil (FISH OIL) 300-1,000 mg capsule,delayed release(DR/EC) Stop taking 0 days prior to procedure omeprazole (PriLOSEC) 40 mg capsule Take morning of procedure rimegepant (NURTEC ODT) 75 mg tablet,disintegrating Stop taking 0 days prior to procedure tiZANidine (ZANAFLEX) 2 mg tablet Stop taking 0 days prior to procedure documented in this encounter [facility] 03-01-2023 Evaluation note Encounter Date Diagnosis [...] (suspected) exposure to covid-19 (ICD-10 - Z20.822) [employer] Other 09-21-2023 Evaluation note* Encounter Date Diagnosis Assessment Notes Treatment Notes Treatment Clinical Notes Oct, GERD (gastroesophageal reflux disease) (ICD-10 - K21.9) Patient reports break through and she will in crease omeprazole 40 mg to BID RTO 6 months Oct, Hiatal hernia (ICD-10 - K44.9) Oct, Schatzki's ring (ICD-10 - K22.2) [employer] Other 08-08-2023 [facility] NoteCARDIAC STRESS TEST Requesting Physician: [...] to be dictated by Radiology team separately.[id number] NoteCONSULTATION CONSULTATION DATE: 01/10/2022 HISTORY OF PRESENT [...] is being seen by Dr. Bautista at [facility]. The patient is under the care of [facility] with regards to her migraines. The patient is to have significant workups performed including cardiac. The patient also is to see development eng, retina specialist. As such, given the patient's [...] again stress the importance of tobacco cessation.[facility] 12-20-2021 NoteCONSULTATION CONSULTATION DATE: 12/20/2021 CHIEF COMPLAINT: Chronic low back pain, left lower extremity pain. HISTORY OF PRESENT ILLNESS: This is a 41-year-old female who was referred to us by Shad Elliott, nurse practitioner, with [facility]. The patient states she has had [...] The patient is being seen by a epic ambulatory analyst on 02/16/2022, neuropsychiatrist in April of 2022, and she is to [facility] on 01/10/2022. As such, the patient's [...] limited at this point. CC: Shad Elliott, [facility] noteNo assessment information [facility] Work Phone: Evaluation noteNo InformationNomadison medical center [employer] Other Evaluation note* Diagnosis Factor 5 Leiden mutation, heterozygous (CMS-HCC)- Primary documented in this encounter [facility] Diagnosis Mixed stress and urge urinary incontinence- Primary Mixed incontinence urge and stress (male)(female) documented in this encounter [facility]* Diagnosis Mixed stress and urge urinary incontinence- Primary Mixed incontinence urge and stress (male)(female) Encounter for screening colonoscopy- Primary [facility] Diagnosis Melanocytic nevus of face, other location- Primary Neoplasm of unspecified behavior of bone, soft tissue, and skin documented in this encounter [facility] Author Siva You [facility] September 12, 2022 1:37pm Note Date/Time September 12, 2022 1:3 7pm [facility] [address] [place] [address] Gastroenterology H&P Signed Patient: Araceli Pérez MR#: [id number] : 1980 Acct:[id number] Age/Sex: 42 / F Adm Date: 08/08/2 3 Loc: Room: Type: [facility] Attending Dr: Siva You MD [...] By: <Electronically signed by Siva You MD> 09/12/227 [facility] Work Phone: History general Narrative [...] Surgical History craniotomy Hospitalization History see above [employer] Other Hospital Discharge instructions Additional Instructions DISCHARGE [...] NOT operate machinery such as power tools, [employer]n mowers, snow blowers, sewing machines, etc. for [...] problems. -Follow up with PCP. -Office number [phone].[facility] Work Phone: InstructionsNot on [...] and content) DATE CREATED AUTHOR 08/06/2021 [facility] DATE CREATED AUTHOR AUTHOR'S ORGANIZ ATION 06/08/2022 [facility] DATE CREATED AUTHOR AUTHOR'S ORGANIZ ATION 09/18/2022 [facility] DATE CREATED AUTHOR AUTHOR'S ORGANIZ ATION 01/23/2024 [facility] DATE CREATED AUTHOR AUTHOR'S ORGANIZ ATION 05/31/2024 [facility] DATE CREATED AUTHOR AUTHOR'S ORGANIZ ATION 06/02/2024 [facility] DATE CREATED AUTHOR AUTHOR'S ORGANIZ ATION 07/08/2024 [facility] DATE CREATED AUTHOR AUTHOR'S ORGANIZ ATION 07/09/2024 [facility] Care Teams (unrecognized sec tion and content) Team Status: Inactive Member Role Status Dates Ron M Rodrigo , DO Attending Provider Active NON STAFF Primary Care Provider Active Team Status: Active Member Role Status Dates NON STAFF Primary Care Provider Active Team Status: Inactive Member Role Status Dates NON STAFF Primary Care Provider Active Siva You MD Attending Provider Active Rand Maker Relationship Specialty Start Date End Date ShamShad cornejo, BREAD AND PASTRY BAKER-CHIEF DEPUTY CORONER [address] [place] [address] PCP - General Primary Care 12/06/21 Rand Maker Relationship Specialty Start Date End Date ShamShad cornejo, BREAD AND PASTRY BAKER-CHIEF DEPUTY CORONER [address] [place] [address] PCP - General Primary Care 12/06/21 Rand Maker Relationship Specialty Start Date End Date ShamShad cornejo, BREAD AND PASTRY BAKER-CHIEF DEPUTY CORONER [address] [place] [address] PCP - General Primary Care 12/06/21 Rand Maker Relationship Specialty Start Date End Date Bhumi Wayne, BREAD AND PASTRY BAKER-VALVE PIPE IRRIGATOR [address] [place] [address] PCP - General Family Medicine 11/12/23 Rand Maker Relationship Specialty Start Date End Date Bhumi Wayne, BREAD AND PASTRY BAKER-VALVE PIPE IRRIGATOR [address] [place] [address] PCP - General Family Medicine 11/12/23 Rand Maker Relationship Specialty Start Date End Date Bhumi Wayne BREAD AND PASTRY BAKER-VALVE PIPE IRRIGATOR [address] [place] [address] PCP - General Family Medicine 11/12/23 Rand Maker Relationship Specialty Start Date End Date Bhumi Wayne BREAD AND PASTRY BAKER-VALVE PIPE IRRIGATOR [address] [place] [address] PCP - General [facility] 11/12/23 Rand Maker Relationship Specialty Start Date End Date Sharmin Poole PA PCP - NOMEli Razo [facility] 08/06/23 Rand Maker Relationship Specialty Start Date End Date Sharmin Poole PA PCP - NOMEli Razo [facility] 08/06/23 Rand Maker Relationship Specialty Start Date End Date Bhumi Wayne, [facility] [address] [place], [place] [id number] PCP - [facility] 11/12/23 Rand Maker Relationship Specialty Start Date End Date Bhumi Wayne, [facility] [address] [place], [place] [id number] PCP - [facility] 11/12/23 Goals (unrecognized section and content) Goals [...] Lesion Specialty Diagnoses / Procedures Referred By Connie dowling Referred To Contact Dermatology Diagnoses scalp lesion Procedures office visit Marisol Canales MD [address] [place] [address] fax: Chau Williamson MD [address] [place] [address] Phone: tel: fax: Referral ID Status Reason Start Date Expiration Date Visits Re quested Visits Authorized [id number] Closed 05/15/2024 11/11/2024 1 1 Reason Onset [...] BE BASED ON THE PRIMARY CLINICAL RECORDS. [employer] provides no warranty or guarantee of the accuracy or completeness of information in this document.
== END 2024-07-14 07:36 | disposition home or self-care (01) ==
LOC: CT 07:35
PROVIDERS: Visit Provider Nurse Practitioner
DX: M48.062 Spinal stenosis, lumbar region with neurogenic claudication (principal); M43.06 Spondylolysis, lumbar region
CPT/HCPCS: 72131

== ENCOUNTER 2024-08-14 12:49 | Outpatient (OUT) | payer MEDICAID, SELFPAY ==
--- NOTE | 2024-08-14 12:38 | PM.CN ---
Consult Note: HPI Data of Consult Patient: known to practice within the last 3 years Requesting Physician: Tash Hairston NP Primary Care Provider: [facility] Consult Narrative Reason for consult: f/u Narrative: Juliana Pérez a 43 year old female presents for evaluation of FM, chronic pain syndrome, and low back pain. Pain today 8/10 in low back aching sharp pain. Pain increases with pushing, puling, standing, walking, lifting, housework, ADLs, activity, weather changes. Improved with ice and sitting. denies loss of bowel/bladder. longstanding history of left lateral thigh and LE numbness tingling and bilateral feet, started around 2008 per pt. She has seen numerous specialists due to complex history, pt reports hx of 2 aneurysms requiring surgical intervention/clipping, RA, FM, factor five leiden, and squamous cell skin cancer. currently following with dermatology, neurology, PCP, psychiatry, and counseling. in the past has failed gabapentin, lyrica, baclofen, flexeril, tizanidine, tylenol. allergies to duloxetine and naproxen. pt recently completed 6 visits of aquatherapy without improvement. recent lumbar CT completed with results below. emg unremarkable. cc:: CC: Tash Hairston NP [facility] Social History Smoking status: Current every day smoker Little interest or pleasure in doing things: not at all Feeling down, depressed, or hopeless: not at all Meds Home Medications and Allergies Home Medications ?Medication ?Instructions ?Recorded ?Confirmed ?Type amitriptyline 25 mg tablet 25 mg PO DAILY 04/09/24 06/24/24 History amlodipine 10 mg tablet 10 mg PO DAILY 04/09/24 06/24/24 History atorvastatin 40 mg tablet 40 mg PO DAILY 04/09/24 06/24/24 History losartan 100 mg tablet 100 mg PO DAILY 04/09/24 06/24/24 History omega-3 fatty acids-fish oil 300 1 cap PO DAILY 04/09/24 06/24/24 History mg-1,000 mg capsule omeprazole 40 mg capsule,delayed 40 mg PO BID 04/09/24 06/24/24 History release hydrocodone 5 mg-acetaminophen 325 1 tab PO TID PRN pain 4 days #12 06/24/24 Rx mg tablet tabs ketorolac 10 mg tablet 10 mg PO TID PRN pain 4 days #12 06/24/24 Rx tabs prednisone 20 mg tablet 40 mg (2 x 20 mg) PO DAILY 5 days 06/24/24 Rx #10 tabs Allergies Allergy/AdvReac Type Severity Reaction Status Date / Time Penicillins Allergy Intermediate shortness Verified 06/24/24 16:20 of breath duloxetine (From Cymbalta) AdvReac Intermediate Vomiting Verified 06/24/24 16:20 naproxen (From EC-Naproxen) AdvReac Intermediate Rash Verified 06/24/24 16:20 nickel AdvReac Rash Uncoded 06/24/24 16:20 Exam Narrative Exam Narrative: hyperalgesia Constitutional Documenting provider has reviewed patient's vital signs: yes Common normals: no apparent distress, oriented x3, healthy appearing, alert and well nourished General appearance: cooperative HENMT Common normals: normocephalic, hearing grossly normal bilaterally and moist oral mucous membranes Head and scalp: normocephalic Eye Common normals: PERRL Pupil: PERRL Neck & C-Spine Common normals: full ROM General: normal visual inspection Chest Common normals: inspection of chest normal Respiratory Common normals: normal respiratory effort, no retractions and no use of accessory muscles Back & Pelvis Lumbar spine/lower back: ROM limited, pain with ROM, lumbar spinal tenderness, paraspinal muscle tenderness, paraspinal muscle spasm, straight leg raise positive right and straight leg raise positive left Sacroiliac joints: SI joint(s) abnormal Other: left > right positive judy(patricks), gaenslens, thigh thrust, compression test decreased sensation to left L4,5,S1 strength 4/5 in BLE neuropathic pain to bilateral feet Neuro Common normals: oriented x3 Sensorium/orientation: alert Psych Common normals: mental status grossly normal, thought process normal, cooperative, affect normal, speech normal and activity/motor behavior normal Speech: normal speech Thought process: normal thought process Results Additional Findings Additional findings: Subtle levoscoliotic curvature may be positional. There are no acute compression fractures. There is minimal anterolisthesis of L5 on S1. This is secondary to bilateral L5 spondylolysis. The disc spaces are uniform. There is no significant facet hypertrophy. There is minor disc osteophytic bulging at L4-5 and the lumbosacral junction. There is no significant associated thecal sac effacement though there is minor inferior foraminal encroachment at L4-5 bilaterally. The SI joints are maintained. There are no paraspinal soft tissue abnormalities. No obstructive uropathy or stone disease is noted. There is mild atherosclerotic plaque at the aorta. Assessment and Plan Assessment and Plan (1) Lumbar radiculopathy: Assessment and Plan: The patient has had over 3 months of moderate to severe low back and LLE pain with functional impairment and inadequate response to conservative care including NSAIDS (unless there are contraindication such as concurrent blood thinners), multiple oral or topical pain medications, and home exercise program/physical therapy.? Patient has completed >6 weeks of guided home exercise program and/or formal physical therapy program without relief of their symptoms.? The Oswestry Disability Index was completed, and the patient scored a 66%.? The patient noted the following:?? moderate to severe pain impacting standing, sitting, sleeping, social life, travel We discussed the risks and benefits of the procedure with the patient, and we are NOT planning on using sedation as outlined in the guidelines from Medicare unless there is a documented reason that sedation would be strongly recommended.?? ?The procedure will be completed with fluoroscopic guidance.? (2) Sacroiliitis: (3) Fibromyalgia: (4) Lumbar stenosis with neurogenic claudication: (5) Lumbar spondylosis: Plan lumbar CT reviewed with pt, on exam has s/s of lumbar radiculopathy, sacroilitis, and facet mediated low back pain. will trial left L4,5,S1 TFESI under fluoroscopy for multidermatomal radiculopathy. continue HEP and PT as tolerated. continue medications through psychiatry and pcp. f/u 2 weeks after TFESI
== END 2024-08-14 12:50 | disposition home or self-care (01) ==
LOC: PM 12:49
PROVIDERS: Visit Provider Nurse Practitioner
DX: M54.16 Radiculopathy, lumbar region (principal); M46.1 Sacroiliitis, not elsewhere classified; M79.7 Fibromyalgia; M48.062 Spinal stenosis, lumbar region with neurogenic claudication; M47.816 Spondylosis without myelopathy or radiculopathy, lumbar region
CPT/HCPCS: G0463

== ENCOUNTER 2024-09-17 08:21 | Outpatient (OUT) | payer MEDICAID, SELFPAY ==
--- OUTSIDE RECORDS SUMMARY | 2024-09-17 08:26 | XMS_ITS | CCD ---
Author Organization [facility] CliniSy[facility] Care Team Providers Care Wood Finisher Name Role Phone DO Ron Wallace Attending [...] Admitting Unavailable NON STAFF Primary Care Provider Unavailluciano e MD Siva You Attending Provider Siva You Admitting Unavailable Siva You Attending Unavailable NON STAFF Primary Care Unavailable NON STAFF Primary Care Unavailable Joe Wallace Admitting Unavailab Joe Clarke Attending Unavailab Albaro Joseph Unavailable Kisha Barkley Unavailable LASHAUN ANDRE Attending Unavailable ROOSEVELT FORBES Attending Unavailable Shammo STATISTICS MANAGER-PROGRAM OFFICER, Shad Primary Care Provider Volodymyr STATISTICS MANAGER-ROVING INSPECTOR, Bhumi Primary Care Provider [phone] Ngsue, Kadori Attending Unavailable Ngirabakunzi, Kadori Primary Care Unavailable Sharmin Walker Unavailable Volodymyr STATISTICS MANAGER-ROVING INSPECTOR, Bhumi Primary Care Provider VOLODYMYR, BHUMI Referring Unavailable VOLODYMYR, BHUMI Primary Care Unavailable DB ELIZABETH Admitting Unavailable DB ELIZABETH Attending Unavailable VOLODYMYR, BHUMI Primary Care Unavailable PARKER, MARISOL Referring Unavailable VOLODYMYR, BHUMI Primary Care Unavailable PARKER, MARISOL Referring Unavailable VOLODYMYR, BHUMI Primary Care Unavailable PARKER, MARISOL Referring Unavailable VOLODYMYR, BHUMI Primary Care Unavailable PARKER, MARISOL Referring Unavailable VOLODYMYR, BHUMI Primary Care Unavailable YU GUERRIER Attending Unavailable VOLODYMYR, BHUMI Referring Unavailable VOLODYMYR, BHUMI Primary Care Unavailable VOLODYMYR, BHUMI Primary Care Unavailable PARKER, MARISOL Referring Unavailable [facility] Attending Unavailable CHAU WILLIAMSON Attending Unavailable PARKER, MARISOL Referring Unavailable AAMIR TREVINO Attending Unavailable Leslie Rodriguez DO Attending Provider Tash Carrizales Primary Care Provider Nesha Hoang APRN Primary Care Provider Nesha Hoang APRN Attending Provider Allergies Allergy Classification Reported Allergen(s) Allergy Type Date of Onset Reaction(s) Facility (2 sources) DULoxetine Drug Allergy 2 [facility] Repository (7 sources) Leucine; Translations: [NICKEL] Drug Allergy 9 anaphylaxis [facility] (4 sources) Penicillin Drug Allergy 1 Unknown [facility] (20 sources) DULoxetine; Translations: [duloxetine] Drug Allergy 2 Vomiting [facility] (20 sources) Naproxen; Translations: [naproxen] Drug Allergy 7 Hives [facility] (20 sources) Penicillins; Translations: [Penicillins] Allergy to substance 7 Shortness Of Breath, Rash [facility] (1 source) Unable to Assess Drug allergy (disorder) 2 [facility] (5 sources) penicillAMINE Drug Allergy 4 anaphylaxis [facility] (13 sources) nickel Drug Allergy 9 anaphylaxis [facility] (1 source) Bee pollen; Translations: [BEE POLLEN] Propensity to adverse reactions to drug (disorder) 2 [facility]ository (4 sources) DULoxetine Drug Allergy 5 [facility] (4 sources) nickel sulfate Drug Allergy 5 [facility] Medications Current Medications Medication [...] Discontinued (Therapy completed) Tylenol prn Acti ve [id number] actuat albuterol 0.09 mg/actuat metered dose inhaler (1 source) beta2-Adrenergic Agonist Start: 03-09-2023 take 2 puff(s) by inhalation every four to six hours as needed Albuterol Sulfate HFA 108 (90 Base) MCG/ACT 2 puffs as needed Inhalation every 4-6 hours for 14 days Mar, Active amitriptyline hydrochloride 10 mg oral tablet (20 sources) Tricyclic Antidepressant Start: 09-11-2024 take 1 tablet by mouth three times daily Amitriptyline 10 mg tablet Active 10 MG PO Three times daily September 11, 2024 12:00am Complies with drug therapy Start: 06-10-2024 take 3 tablets by mo uth once daily at bedtime amitriptyline (ELAVIL) 10 mg tablet Take 3 tablets (30 mg total) by mouth nightly. at bedtime 06/10/2024 Active Start: 11-29-2022 End: 07-08-2024 amitriptyline (ELAVIL) 50 mg tablet Indications: Fibromyalgia One capsule at 8 PM each night 90 tablet 1 11/29/2022 07/08/2024 Discontinued amitriptyline (E lavil) 25 MG tablet Take by mouth at bedtime Active amLODIPine 10 mg oral tablet (18 sources) Dihydropyridine Calcium Channel Estella Start: 06-29-2023 Amlodipine 10 mg tablet Active MG PO June 29, 2023 12:00am Complies with drug therapy Start: 12-25-2021 take 2 tablets by mo uth once daily amLODIPine (NORVASC) 5 mg tablet Indications: hypertension Take 2 tablets (10 mg total) by mouth nightly Indications: high blood pressure. 12/25/2021 Active ARIPiprazole 5 mg oral tablet (3 sources) Atypical Antipsychotic Start: 09-11-2024 take 1 tablet by mouth once daily Aripiprazole 5 mg tablet Active 5 MG PO Daily September 11, 2024 12:00am Complies with drug therapy Start: 07-07-2024 take 1 tablet by roselyn at bedtime ARIPiprazole (Abilify) 2 MG tablet Take 2 mg by mouth at bedtime 07/07/2024 Active atorvastatin 40 mg oral tablet (20 sources) HMG-CoA Reductase Inhibitor Start: 06-29-2023 Atorvastatin 40 mg tablet Active MG PO June 29, 2023 12:00am Complies with drug therapy Start: 04-24-2022 End: 09-11-2024 take 1 tablet by mouth once daily Atorvastatin 20 mg tablet Discontinued 20 MG PO Daily September 12, 2022 12:00am September 11, 2024 1:30pm Start: 04-24-2022 take 2 tablets by mo uth in the morning atorvastatin (LIPITOR) 20 mg tablet Take 2 tablets (40 mg total) by mouth in the morning. 04/24/2022 Active bisacodyl 5 mg delayed release oral tablet (6 sources) Stimulant Laxative Start: 12-05-2023 bisacodyL ( DULCOLAX, BISACODYL,) 5 mg EC tablet Indications: Encounter for screening colonoscopy Please see instructional sheet given by physicians office. 2 tablet 12/05/2023 Active Dicyclomine (3 sources) Anticholinergic Dicyclomine HCl 10mg Active Fish Oils (7 sources) omega-3 (FISH OI L) 300 MG capsule Take by mouth Daily Active Fish Oil Active FLUoxetine 20 mg oral capsule (8 sources) Serotonin Reuptake Inhibitor Start: 11-29-2022 take 1 capsule by mouth in the morning FLUoxetine (PROzac) 20 mg capsule Indications: Fibromyalgia Take 1 capsule (20 mg total) by mouth in the morning. 90 capsule 1 11/29/2022 Active fluticasone propionate 0.05 mg/actuat metered dose nasal spray (2 sources) Corticosteroid Start: 06-29-2023 take 1 spray(s) nasal route once daily Fluticasone Propionate 50 mcg/actuation spray,suspension Active 1 SPRAY INTRANASAL Daily June 29, 2023 12:00am administer into each nostril Complies with drug therapy fluticasone / salmeterol (7 sources) Corticosteroid, beta2-Adrenergic Agonist End: 12-05-2023 take 1 puff(s) by inhalation in the morning fluticasone propion-salmetero L (ADVAIR) 100-50 mcg/dose DISKUS Inhale 1 puff [...] 0 Active hydroCHLOROthiazide 25 mg oral tablet (6 sources) Thiazide Diuretic Start: 10-22-2023 take 1 tablet by mouth once daily hydroCHLOROthiazide (HYDRODIURIL) 25 mg tablet Take 1 tablet (25 mg total) by mouth daily. 10/22/2023 Active lamoTRIgine 25 mg oral tablet (1 source) Mood Stabilizer, Anti-epileptic Agent Start: 09-11-2024 take 1 tablet by mouth once daily Lamotrigine 25 mg tablet Active 25 MG PO Daily September 11, 2024 12:00am Complies with drug therapy losartan potassium 100 mg oral tablet (20 sources) Angiotensin 2 Receptor Estella Start: 09-12-2022 take 1 tablet by mouth once daily Losartan 100 mg tablet Active 100 MG PO Daily September 12, 2022 12:00am Complies with drug therapy Start: 12-05-2021 take 2 tablets by mo [facility] once daily losartan (COZAAR) 50 mg tablet Take 2 tablets (100 mg total) by mouth nightly. 12/05/2021 Active losartan (Cozaar ) 50 MG tablet Take by mouth Active Losartan Potassi um Active naloxone hydrochloride 40 mg/ml nasal spray (5 sources) Opioid Antagonist Start: 07-07-2022 naloxone (NA RCAN) 4 mg/actuation spray,non-aerosol nasal spray Administer 1 [...] opioid reversal. 1 each 07/07/2022 Active omega 6-pvs-wlw-fish oil (FI SH OIL) 300-1,000 mg capsule,delayed release(DR/EC) (12 sources) Start: 05-22-2022 omega 3-dha-ep a-fish oil (FISH OIL) 300-1,000 mg capsule,delayed release(DR/EC) Take 1 capsule by mouth in the morning. 05/22/2022 Active Start: 05-22-2022 omega 3-dha-ep a-fish oil (FISH OIL) 300-1,000 mg capsule,delayed release(DR/EC) Take 1 capsule by mouth in the morning. 0 05/22/2022 Active Wheeler-3 Fatty Acids-Fish Oil (1 source) Start: 09-12-2022 take 1 capsule by mouth once daily Wheeler-3 Fatty Acids-Fish Oil Active 1 CAP PO Daily September 12, 2022 12:00am Wheeler-3 Fatty Acids-Fish Oil 300-1,000 mg capsule (2 sources) Start: 09-12-2022 take 1 capsule by mouth once daily Wheeler-3 Fatty Acids-Fish Oil 300-1,000 mg capsule Active 1 CAP PO Daily September 12, 2022 12:00am Complies with drug therapy Start: 09-12-2022 take 1 capsule by mouth once d aily omeprazole 40 mg delayed release oral capsule (20 sources) Proton Pump Inhibitor Start: 12-07-2021 take 1 capsule by mouth once daily Omeprazole 40 mg capsule,delayed release(DR/EC) Active 40 MG PO Daily September 12, 2022 12:00am Complies with drug therapy oseltamivir 75 mg oral capsule (1 source) Neuraminidase Inhibitor Start: 03-09-2023 take 1 capsule by mouth every twelve hours Oseltamivir Phosphate 75 MG 1 capsule Orally Twice a day for 5 day(s) Mar, Active rimegepant 75 mg disintegrating oral tablet (5 sources) Start: 07-08-2024 take 1 tablet by mouth every twenty-four hours as needed Rimegepant Sulfate (Nurtec) 75 MG tablet dispersible Take 75 mg by mouth Daily as needed 07/08/2024 Active rimegepant (NURT EC ODT) 75 mg tablet,disintegrating Dissolve on tongue. 0 Active sertraline 50 mg oral tablet (3 sources) Serotonin Reuptake Inhibitor Start: 09-11-2024 take 1 tablet by mouth once daily Sertraline 50 mg tablet Active 50 MG PO Daily September 11, 2024 12:00am Complies with drug therapy Start: 07-07-2024 take 1 tablet by roselyn th once daily sertraline (Zoloft) 50 MG tablet Take 50 mg by mouth Daily 07/07/2024 Active sod sulf-pot chloride-mag sulf 1.479-0.188- 0.225 gram tablet (2 sources) Start: 12-05-2023 sod sulf-pot chloride-mag sulf 1.479-0.188- 0.225 gram tablet Indications: Encounter for screening colonoscopy Please see instructional sheet given by physicians office. 24 tablet 12/05/2023 Active solifenacin succinate 5 mg oral tablet (10 sources) Cholinergic Muscarinic Antagonist Start: 04-25-2023 take 1 tablet by mouth in the morning solifenacin (VESICARE) 5 mg tablet Take 1 tablet (5 mg total) by mouth in the morning. 30 tablet 4 04/25/2023 Active tiZANidine 2 mg oral tablet (12 sources) Central alpha-2 Adrenergic Agonist Start: 11-29-2022 tiZANidine (ZANAFLEX) 2 mg tablet Indications: Fibromyalgia One tab at 8:00 p.m.each night 90 tablet 1 11/29/2022 Active Completed/Discontinued Medications Medication Drug Class(es) Dates Sig (Normalized) Sig (Original) benzonatate 200 mg oral capsule (2 sources) Non-narcotic Antitussive Start: End: 5 take 1 capsule by mouth three times daily as needed for cough Benzonatate 200 mg capsule Discontinued 200 MG PO Three times daily as needed for cough 10 June 29, 2023 12:00am September 11, 2024 1:30pm methylPREDNISolone 4 mg oral tablet (3 sources) Corticosteroid Start: 4 End: 5 take 1 tablet by mouth once Methylprednisolone (Medrol (Nabeel)) 4 mg tablets,dose pack Discontinued 0 PO per package directions June 29, 2023 12:00am September 11, 2024 1:30pm PO PER PKG DIR Start: 03-09-2023 methylPREDNISo lone 4 MG as directed Orally for 6 02 Feb, 2024 Active Problems Active Problems Problem Classification Problem Date Documented Da te Episodic/Chronic Abdominal hernia (1 source) Diaphragmatic hernia without obstruction or gangrene Episodic Administrative/social admission (4 sources) Encounter for disability determination; Translations: [ENCOUTER DISABILITY DETERMINATION] Onset: 3 Episodic Coagulation and hemorrhagic disorders (19 sources) Activated protein C resistance; Translations: [Heterozygous Factor V Leiden mutation] Onset: 7 Chronic Disorders of lipid metabolism (6 sources) Hyperlipidemia, unspecified; Translations: [Mixed hyperlipidemia] Onset: 3 Chronic Endometriosis (16 sources) Endometriosis (clinical); Translations: [Endometriosis, unspecified] Onset: 7 06-08-2016 Chronic Esophageal disorders (20 sources) Gastroesophageal reflux disease; Translations: [Gastro-esophageal reflux disease without esophagitis] Onset: 7 Chronic Essential hypertension (5 sources) Essential (primary) hypertension; Translations: [Hypertensive disorder] Onset: 2 Chronic Comment on above: Problem List clean-u p per request of Phys. EHR Cmte Genitourinary symptoms and ill-defined conditions (20 sources) Mixed urinary incontinence; Translations: [Mixed incontinence] Onset: 3 04-25-2023 Chronic Headache; including migraine (19 sources) Migraine; Translations: [Migraine, unspecified, not intractable, without status migrainosus] Onset: 7 06-08-2016 Chronic Headache; including migraine (1 source) Frequent headache; Translations: [Frequent headaches] 07-08-2024 Episodic Headache; including migraine (2 sources) Headache; including [...] 06-02-2024 Episodic Other and ill-defined cerebrovascular disease (16 sources) Intracranial aneurysm; Translations: [Cerebral aneurysm, nonruptured] [...] [OTHER CHRONIC PAIN] Onset: 2 Chronic Other nervous system disorders (4 sources) Numbness and tingling sensation of skin; Translations: [Anesthesia of skin] 08-11-2024 Episodic Other non-epithelial cancer of skin (2 sources) Squamous cell carcinoma of head and neck; Translations: [Squamous cell carcinoma of skin of scalp and neck] 07-31-2024 Episodic Other nutritional; endocrine; and metabolic disorders (1 source) Body mass index (BMI) 40.0-44.9, adult; Translations: [BODY MASS INDEX BMI 40.0-44.9 ADULT] Onset: 2 Chronic Other upper respiratory disease (2 sources) Allergic rhinitis; Translations: [Allergic rhinitis, unspecified] 06-29-2023 Chronic Other upper respiratory infections (2 sources) Sinusitis; Translations: [Chronic sinusitis, unspecified] 06-29-2023 Chronic Other upper respiratory infections (6 sources) Acute pharyngitis, unspecified; Translations: [Viral upper respiratory tract infection] Onset: 3 Episodic Residual codes; unclassified (1 source) Other specified postprocedural states; Translations: [Other specified postprocedural states] Onset: 5 Episodic Residual codes; unclassified (1 source) History of surgery for cerebral aneurysm; Translations: [Other specified postprocedural states] 07-08-2024 Episodic Spondylosis; intervertebral disc disorders; other back problems (6 sources) Occipital neuralgia; Translations: [Cervico-occipital neuralgia] Onset: 5 07-08-2024 Episodic Substance-related disorders (1 source) Nicotine dependence, [...] PAIN] Onset: 12-10-2021 Episodic Biliary tract disease (16 sources) Cholelithiasis without obstruction; Translations: [Calculus of gallbladder without cholecystitis without obstruction] Onset: 04-07-2019 04-07-2019 Episodic Epilepsy; convulsions (16 sources) Seizure; Translations: [Unspecified convulsions] Onset: 06-08-2016 06-08-2016 Episodic Intestinal infection (1 source) Viral intestinal infection, unspecified; Translations: [VIRAL INTESTINAL INFECTION UNSPEC] Onset: 08-01-2021 Episodic Mood disorders (12 sources) Mood disorders Onset: 07-05-2022 07-05-2022 Nausea [...] Onset: 09-23-2021 Episodic Other connective tissue disease (16 sources) Fibromyalgia; Translations: [Fibromyalgia] Onset: 06-08-2016 06-08-2016 Episodic Other gastrointestinal disorders (16 sources) Dysphagia; Translations: [Dysphagia, unspecified] Onset: 06-08-2016 [...] disorder] Onset: 11-03-2021 Episodic Residual codes; unclassified (16 sources) Family history of stroke due to aneurysm; Translations: [Family history of stroke] Onset: 03-16-2022 03-16-2022 Episodic Unclassified (1 source) LOW BACK PAIN, UNSPECIFIED; Translations: [LOW BACK PAIN, UNSPECIFIED] Onset: 01-10-2022 Unclassified (1 source) Contact with and (suspected) exposure to covid-19 Z20.822 Results Test Name Value Interpretation Reference Range Facility No Panel Informationon 07-31 Consent obtained: written (The rationale for Mohs as well as the risks, benefits, and alternatives. The risks of infection, scarring, bleeding, prolonged wound healing, incomplete removal, allergy to anesthesia or meds, nerve injury, and recurrence were addressed.) Whitmer Protocol: Procedure explained and questions answered to patient or proxy's satisfaction: Yes Test results available and properly labeled: Yes Pathology report reviewed: Yes Photo or diagram used for site identification: Yes Site/side marked: Yes Anticoagulation: Is the patient taking prescription anticoagulant and/or aspirin prescribed/recommended by a physician? 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 No Mohs Appropriate Use Criteria Score: 8 Details of micrographic surgery: Mohs accession number: [id number] Micrographic Surgery Details: Post-operative length (cm): 0.5 Post-operative width (cm): 0.5 Number of Mohs stages: 2 Post surgery depth of defect: subcutaneous fat Stage 1 Comments: The area was prepped with Betadine, draped in a sterile fashion, and infiltrated with local anesthetic. Sterile technique was used throughout the procedure. The marked area of clinical tumor with a small rim of clinically normal surrounding skin was removed using Mohs technique with beveled edges. Hash zavala were placed for orientation of the specimen. Hemostasis was achieved with electrodessication. After hemostasis, the defect was measured and recorded, a temporary sterile dressing was placed over the wound, and the patient was escorted to the waiting area. The specimen was oriented, mapped, and if necessary, divided into sections. A Mohs map was prepared. The specimen was placed in a labeled denise dish and was taken to the Mohs lab where it was chromacoded and processed. Mohs sections were prepared with serial tissue sections, stained, and evaluated by Dr. Trevino for interpretation of deep and peripheral margins. The Mohs map was marked accordingly. Amount of lidocaine used: 2.0 cc Estimated blood loss: < 1.0 cc Defect size: 0.4 x 0.4 cm Number of blocks per stage: 1 Number of positive blocks: 1 Tumor features identified on Mohs section: squamous cell carcinoma Depth of tumor invasion after stage: dermis Stage 2 Comments: The patient returned to the procedure room, the dressing was removed, the tumor area was re-prepped and draped, and anesthesia was assessed and augmented as necessary. A layer of tissue around the positive margin(s) was removed, and the tissue was oriented, mapped, and processed in an identical fashion as for Stage 1. Hemostasis was achieved and dressing placed as in Stage 1. The patient was escorted to the waiting area. As with Stage 1, Mohs sections were prepared with serial tissue sections, stained, and evaluated by Dr. Trevino for interpretation of deep and peripheral margins. The Mohs map was updated. Assistants: Huang Mcdonough LPN Amount of lidocaine used: 2.0 cc Estimated blood loss: < 1.0 cc Defect size: 0.5 x 0.5 cm Number of blocks: 1 Number of positive blocks: 0. Tumor free margins were obtained and the Mohs procedure was considered complete. Depth of tumor invasion after stage: subcutaneous fat Patient tolerance of procedure: tolerated well, no immediate complications Reconstruction: Was the defect reconstructed?: No Antibiotics: Were antibiotics given on the day of surgery?: No [facility] BRAIN WO CONTon CT BRAIN WO [...] Hogue MD on 07/07/2024 7:20 AM Normal [facility] CT CTA HEADon 07-07-2024 CT CTA HEAD [...] Destin Gomes MD on 07/07/2024 3:17 PM [facility] No Panel Informationon 06-02 Type of biopsy: [...] taken Amount of lidocaine used: 1.0 cc [facility]car e Type of biopsy: tangential Informed consent: [...] taken Amount of lidocaine used: 1.0 cc [employer] [facility] Type of biopsy: tangential Informed [...] taken Amount of lidocaine used: 1.0 cc [employer] e Office Visiton 01-21-2024 Follow-up visit [id number] Jt Pérez 1980 F Date Provider Department [place] 01/21/2024 ROOSEVELT SABILLON [facility] Family History Problem Relation Age of Onset Heart attack Father Heart attack Paternal Grandfather Stroke Paternal Grandfather Family Status - Relation Status Age at Father Paternal Grandfather Level of Service:46589 AL OFFICE/OUTPATIENT ESTABLISHED MOD MDM 30 MIN Normal [facility] Surgical Pathologyon 024 Surgical Pathology Normal [facility] Comment on above: Result Comment: [facility] [address] [place] [address] Surgical Pathology Consultation Patient Name:ARACELI PÉREZ:1980 (Age: 43)Gender:FTaken:4Reported:01/09/2024hysician(s):Db Elizabeth D.O. ([phone])Copy To: Rec. #:[id number]: #[id number] Final Pathologic Diagnosis Cecal colon polyp; polypectomy: Tubular adenoma (1 fragment). Unremarkable colonic mucosa (2 fragments). Report Electronically Signed Out wak/01/09/2024Rubio Burgess MD Interpretation performed at [facility], [address] [place] [address], License number: [id number]. Clinical History Screening. 1. cold snared a polyp in the cecum. Gross Description Received in formalin labeled PRISCILA, polyp in cecum are 18 christine delicate to friable soft tissue bits, 0.1-0.4 cm next with vegetative material. The specimens are filtered and submitted in single cassette. (1,ns,[id number], m8) TB tgb/01/01/2024NSK Specimen(s) Received Cecal colon polyp Fee Codes(s): 1; [id number] 36on 11-05-2023 36 Concerning cholester ol levels ---- Message ----- From: Lashaun Andre NP Sent: 10/30/2023 11:21 AM EDT To: Kayla Crouch MA Subject: RE: Scan So let her know her cholesterol levels are very good, much better than last year with lipitor Normal [facility] Telephoneon 11-05-2023 Telephone [id number] Pérez,Tan tyesha Keane 1980 F Date Provider Department Center 11/05/2023 [id number], TANA TED Candelario Family History Problem Relation Age of Onset Heart attack Father Heart attack Paternal Grandfather Stroke Paternal Grandfather Family Status - Relation Status Age at Father Paternal Grandfather Normal [facility] 37on 10-22-2023 35 Start taking hydrochlorothiazide daily in the morning for blood pressure Please have blood drawn next week to check kidney function and electrolytes and cholesterol level- so you must be fasting for labs Normal [facility] Office Visiton 10-22-2023 Follow-up visit [id number] Jt Pérez 1980 F Date Provider Department Center 10/22/2023 Cam-JESLASHAUN CARD [facility] Family History Problem Relation Age of Onset Heart attack Father Heart attack Paternal Grandfather Stroke Paternal Grandfather Family Status - Relation Status Age at Father Paternal Grandfather Level of Service:38023 AL OFFICE/OUTPATIENT ESTABLISHED LOW MDM 20 MIN Normal [facility] COVID + FLU Quick Testingon 03-01-2023 SARS-CoV-2 (COVID-19) RNA SARAH+probe Ql (Unsp spec) Negative [employer] Other COVID + FLU Quick Testing Negative [employer] Other [place] 09-12-2022 L --- Specimen: [id number] Received: 09/12/22 Status: KASSIDY Martinez Num: [id number] Spec Type: Surgical Subm Dr: Siva You MD Tissues: A Esophagus Biopsy (ESOPHAGUS BX) Procedures: HE/2, Gross/Micro L4 Age/ Patient Sex Location Account Attending Physician Araceli Pérez 42/F [id number] Siva You MD SPEC NUM: [id number] RECD: 09/12/22 STATUS: KASSIDY MARTINEZ NUM: [id number] SHANNON: 09/12/22- [facility] DR: Siva You MD ENTERED: 09/12/22 [facility] DR: ALDAIR TYPE: Surgical DEPT: S [...] The microscopic examination confirms the diagnosis. Specimen: [id number] Received: 09/12/22 Status: KASSIDY Martinez Num: [id number] Spec Type: Surgical Subm Dr: Siva You MD Tissues: A Esophagus Biopsy (ESOPHAGUS BX) Procedures: [place] ESQUEDA/Eve L4 Patient: PérezAraceli benedict Lakhwinder [id number] (Continued) Specimen: [id number] Received: 09/12/22 (Continued) Signed (signature on file) Rory Jade MD 09/14/22 1155 Specimen: [id number] Received: 09/12/22 Status: KASSIDY Mratinez Num: [id number] Spec Type: Surgical Subm Dr: Siva You MD Tissues: A Esophagus Biopsy (ESOPHAGUS BX) Procedures: [place] ESQUEDA/Eve L4 Patient: Araceli Pérez [id number] (Continued) Specimen: [id number] Received: 09/12/22 (Continued) CPT Codes 15093 Specimen: [id number] Received: 09/12/22 Status: KASSIDY Martinez Num: [id number] Spec Type: Surgical Subm Dr: Siva You MD Tissues: A Esophagus Biopsy (ESOPHAGUS BX) Procedures: BELGICA/Alfonso, Gross/Micro L4 Patient: Araceli Pérez [id number] (Continued) Signed (signature on file) Rory Jade MD 09/14/22 1155 Normal [facility] LIPID PROFILEon 04-21-2022 CHOL-HDL RATIO NORM SEE BELOW Normal [facility] Comment on above: Result Comment: 3.3 - 4.4 LOW RISK 4.4 - 7.1 AVERAGE RISK 7.1 - 11.0 MODERATE RISK >11.0 HIGH RISK Performed By: #### L IPID, CMP #### [facility] [address] [place] [address] Dr. Edil Gayle Cholesterol [Mass/Vol] 247 mg/dL Critically high <=200 [facility] Comment on above: Performed By: #### L IPID, CMP #### [facility] [address] [address] [address] Edil Gayle Cholesterol in HDL [Mass/Vol] 46 mg/dL Normal 40-60 [facility] Comment on above: Performed By: #### L IPID, CMP #### [facility] [address] [address] [address] Edil Gayle Cholesterol in LDL [Mass/Vol] 180.6 mg/dL Normal [facility] Comment on above: Performed By: #### L IPID, CMP #### [facility] [address] [address] [address] Edil Gayle Cholesterol.total/C holesterol in HDL [Mass ratio] 5.4 {ratio} Normal [facility] Comment on above: Performed By: #### L IPID, CMP #### [facility] [address] [address] [address] Edil Gayle HDL NORMAL > or = 60 mg/dl - LO W CARDIOVASCULAR RISK <40 mg/dl - HIGH CARDIOVASCULAR RISK Normal [facility] Comment on above: Performed By: #### L IPID, CMP #### [facility] [address] [address] [address] Edil Gayle LDL CALC NORMAL SEE BELOW Normal [facility] Comment on above: Result Comment: <100 mg/dl OPTIMAL 100 - 129 mg/dl NEAR OR ABOVE OPTIMAL 130 - 159 mg/dl BORDERLINE HIGH 160 - 189 mg/dl HIGH >190 mg/dl VERY HIGH Performed By: #### L IPID, CMP #### [facility] [address] [place] [address] Dr. Edil Gayle Triglyceride [Mass/Vol] 102 mg/dL Normal <=150 [facility] Comment on above: Performed By: #### L IPID, CMP #### [facility] [address] [address] [address] Edil Gayle VLDL CALC 20.4 mg/dL Normal [facility] Comment on above: Performed By: #### L IPID, CMP #### [facility] [address] [place] [address] Dr. Edil Gayle PROF 14(COMP METB)on 023 Albumin [Mass/Vol] 3.4 g/dL Normal 3.4-5.0 [facility] Comment on above: Performed By: #### L IPID, CMP #### [facility] [address] [place] [address] Dr. Edil Gayle Albumin/Globulin [Mass ratio] 0.9 {ratio} Normal [facility] Comment on above: Performed By: #### L IPID, CMP #### [facility] [address] [place] [address] Dr. Edil Gayle ALP [Catalytic activity/Vol] 117 U/L Critically high 46-116 [facility] Comment on above: Performed By: #### L IPID, CMP #### [facility] [address] [place] [address] Dr. Edil Gayle ALT [Catalytic activity/Vol] 25 U/L Normal 14-59 [facility] Comment on above: Performed By: #### L IPID, CMP #### [facility] [address] [place] [address] Dr. Edil Gayle Anion gap [Moles/Vol] 11.5 mmol/L Normal [facility] Comment on above: Performed By: #### L IPID, CMP #### [facility] [address] [place] [address] Dr. Edil Gayle AST [Catalytic activity/Vol] 16 U/L Normal 15-37 [facility] Comment on above: Performed By: #### L IPID, CMP #### [facility] [address] [place] [address] Dr. Edil Gayle Bilirubin [Mass/Vol] 0.4 mg/dL Normal 0.2-1.0 [facility] Comment on above: Performed By: #### L IPID, CMP #### [facility] [address] [place] [address] Dr. Edil Gayle Calcium [Mass/Vol] 8.9 mg/dL Normal 8.5-10.1 [facility] Comment on above: Performed By: #### L IPID, CMP #### [facility] [address] [place] [address] Dr. Edil Gayle Chloride [Moles/Vol] 106 mmol/L Normal 98-107 [facility] Comment on above: Performed By: #### L IPID, CMP #### [facility] [address] [place] [address] Dr. Edil Gayle CO2 [Moles/Vol] 29.8 mmol/L Normal 21.0-32.0 [facility] Comment on above: Performed By: #### L IPID, CMP #### [facility] [address] [place] [address] Dr. Edil Gayle Creatinine [Mass/Vol] 0.58 mg/dL Normal 0.55-1.02 [facility] Comment on above: Performed By: #### L IPID, CMP #### [facility] [address] [address] [address] Edil Gayle EGFR-AF SAMMARINESE >60 Normal >=60 [facility] Comment on above: Performed By: #### L IPID, CMP #### [facility] [address] [address] [address] Edil Gayle EGFR-NON AF SAMMARINESE >60 Normal >=60 [facility] Comment on above: Performed By: #### L IPID, CMP #### [facility] [address] [address] [address] Edil Gayle Globulin (S) [Mass/Vol] 3.6 g/dL Normal [facility] Comment on above: Performed By: #### L IPID, CMP #### [facility] [address] [place] [address] Dr. Edil Gayle Glucose [Mass/Vol] 103 mg/dL Normal 74-106 [facility] Comment on above: Performed By: #### L IPID, CMP #### [facility] [address] [place] [address] Dr. Edil Gayle Potassium [Moles/Vol] 4.3 mmol/L Normal 3.5-5.1 [facility] Comment on above: Performed By: #### L IPID, CMP #### [facility] [address] [place] [address] Dr. Edil Gayle Protein [Mass/Vol] 7.0 g/dL Normal 6.4-8.2 [facility] Comment on above: Performed By: #### L IPID, CMP #### [facility] [address] [place] [address] Dr. Edil Gayle Sodium [Moles/Vol] 143 mmol/L Normal 136-145 [facility] Comment on above: Performed By: #### L IPID, CMP #### [facility] [address] [place] [address] Dr. Edil Gayle Urea nitrogen [Mass/Vol] 12.0 mg/dL Normal 7.0-18.0 [facility] Comment on above: Performed By: #### L IPID, CMP #### [facility] [address] [place] [address] Dr. Edil Gayle Urea nitrogen/Creatinine [Mass ratio] 20.7 mg/mg Normal [facility] Comment on above: Performed By: #### L IPID, CMP #### [facility] [address] [place] [address] Dr. Edil Gayle CULTURE THROATon 04-03-2022 CULTURE THROAT Culture Observations : NORMAL RESPIRATORY JAYLEEN. Normal [facility] Comment on above: Performed By: #### F T4 #### [facility] [address] [place] [address] Dr. Edil Gayle RESPIRATORY PANEL PLUSon Adenovirus Not detected Normal NOT DETECTED [facility] Comment on above: Performed By: #### F T4 #### [facility] [address] [place] [address] Dr. Edil Monte. Parapertusis Not detected Normal NOT DETECTED [facility] Comment on above: Performed By: #### F T4 #### [facility] [address] [place] [address] Dr. Edil Gayle B. Pertussis Not detected Normal NOT DETECTED [facility] Comment on above: Performed By: #### F T4 #### [facility] [address] [place] [address] Dr. Edil Gayle Chlamydia Pneumoniae Not detected Normal NOT DETECTED [facility] Comment on above: Performed By: #### F T4 #### [facility] [address] [place] [address] Dr. Edil Gayle Coronavirus 229E Not detected Normal NOT DETECTED [facility] Comment on above: Performed By: #### F T4 #### [facility] [address] [place] [address] Dr. Edil Gayle Coronavirus HKU1 Not detected Normal NOT DETECTED [facility] Comment on above: Performed By: #### F T4 #### [facility] [address] [place] [address] Dr. Edil Gayle Coronavirus NL63 Not detected Normal NOT DETECTED [facility] Comment on above: Performed By: #### F T4 #### [facility] [address] [place] [address] Dr. Edil Gayle Coronavirus OC43 Not detected Normal NOT DETECTED [facility] Comment on above: Performed By: #### F T4 #### [facility] [address] [place] [address] Dr. Edil Gayle Influenza A H1 Not detected Normal NOT DETECTED [facility] Comment on above: Performed By: #### F T4 #### [facility] [address] [address] [address] Edil Gayle Influenza A H1 2009 Not detected Normal NOT DETECTED [facility] Comment on above: Performed By: #### F T4 #### [facility] [address] [place] [address] Dr. Edil Gayle Influenza A H3 Not detected Normal NOT DETECTED [facility] Comment on above: Performed By: #### F T4 #### [facility] [address] [place] [address] Dr. Edil Gayle Influenza B Not detected Normal NOT DETECTED [facility] Comment on above: Performed By: #### F T4 #### [facility] [address] [place] [address] Dr. Edil Gayle Metapneumovirus Not detected Normal NOT DETECTED [facility] Comment on above: Performed By: #### F T4 #### [facility] [address] [place] [address] Dr. Edil Gayle Mycoplas. Pneumoniae Not detected Normal NOT DETECTED [facility] Comment on above: Performed By: #### F T4 #### [facility] [address] [place] [address] Dr. Edil Gayle Parainfluenza 1 Not detected Normal NOT DETECTED [facility] Comment on above: Performed By: #### F T4 #### [facility] [address] [place] [address] Dr. Edil Gayle Parainfluenza 2 Not detected Normal NOT DETECTED [facility] Comment on above: Performed By: #### F T4 #### [facility] [address] [place] [address] Dr. Edil Gayle Parainfluenza 3 Not detected Normal NOT DETECTED [facility] Comment on above: Performed By: #### F T4 #### [facility] [address] [place] [address] Dr. Edil Gayle Parainfluenza 4 Not detected Normal NOT DETECTED [facility] Comment on above: Performed By: #### F T4 #### [facility] [address] [place] [address] Dr. Edil Gayle Rhino/Enterovirus Not detected Normal NOT DETECTED [facility] Comment on above: Performed By: #### F T4 #### [facility] [address] [place] [address] Dr. Edil Gayle RP2 Header 1 RESPIRATORY PANEL: VIRUSES Normal [facility] Comment on above: Performed By: #### F T4 #### [facility] [address] [place] [address] Dr. Edil Gayle RP2 Header 2 RESPIRATORY PANEL: BACTERIA Normal [facility] Comment on above: Performed By: #### F T4 #### [facility] [address] [place] [address] Dr. Edil Gayle RSV Not detected Normal NOT DETECTED [facility] Comment on above: Performed By: #### F T4 #### [facility] [address] [place] [address] Dr. Edil Gayle SARS-CoV-2 (COVID-19) RNA SARAH+probe Ql (Unsp spec) Not detected Normal NOT DETECTED [facility] Comment on above: Performed By: #### F T4 #### [facility] [address] [place] [address] Dr. Edil Gayle STREPT SCREENon 04-03-2022 STREP SCREEN A Negative Normal NEGATIVE [facility] Comment on above: Performed By: #### F T4 #### [facility] [address] [place] [address] Dr. Edil Gayle ECHOCARDIO M/2D COMPLETEon 1 04-03-2021 ECHOCARDIO M/2D COMPLETE Patient: ARACELI PRÉEZ Exam Date: 01/31/2022 : 1980 Gender:F Ordering : LASHAUN ANDRE Admission #: [id number] Family : Order #: [id number] CLICK HERE TO VIEW EXAM ECHOCARDIOGRAM REPORT [...] on 02/07/2022 at 09:43 Normal [facility] NM STRESS/REST MULTIon 01-31 NM STRESS/REST MULTI Patient: ARACELI PÉREZ Exam Date: 01/31/2022 : 1980 Gender:F Ordering : LASHAUN ANDRE Admission #: [id number] Family : Order #: [id number] CLICK HERE TO VIEW EXAM RADIOLOGY REPORT [...] MD on 02/02/2022 at 11:41 Normal [facility] MR head/brain wo/w conon MR head/brain wo/w con [facility] [address] MRI Report Signed Patient: Araceli Pérez MR#: [id number] : 1980 Acct:[id number] Age/Sex: 41 / F ADM Date: 12/20/21 Loc: MR Room: Type: [facility] Attending Dr: Ron Wallace DO [...] Efrain Chapman M.D.12/21/2021 8:39 AM Dictation Location: [address] [address] Transcribed By: [facility] 12/21/21838 Dictated By: Efrain Chapman II, MD 12/21/21815 Signed By: 12/21/2139 [facility] XR LSPINE W_OBLS AND FLEX_EX Ton 12-21-2021 [...] by: MARCE FERREIRA Date: 2021-12-21 07:11 Normal [facility] US SINGLE QUAD RT UPPERon US [...] MARCE FERREIRA Date: 2021-12-11 08:32 Normal [facility] XR CHEST 2 Von 12-06-2021 XR [...] MARCE FERREIRA Date: 2021-12-06 15:35 Normal [facility] MG MAMM SCREEN 3D TISHA CADon 11-08-2021 MG MAMM SCREEN 3D TISHA CAD Patient: ARACELI PÉREZ Exam Date: 11/08/2021 : 1980 Gender:F Ordering : [employer] Admission #: [id number] Family : Order #: [id number] CLICK HERE TO VIEW EXAM RADIOLOGY REPORT PROCEDURE: MAMMOGRAM SCREENING 3D BILATERAL CAD COMPARISON: MG MAMM SCREEN 3D TISHA CAD, 07/19/2020. INDICATIONS: Screening mammography Calculator Name NCI Breast Cancer Risk Assessment Tool 5 Year Breast Cancer Risk 0.50% Lifetime Breast Cancer Risk 6.50% Personal Breast Cancer No Personal Ovarian Cancer No Treatments None Family Cancers None LOCATION: [facility] BREAST COMPOSITION: Scattered areas fibroglandular density. [...] MD on 11/09/2021 at 07:53 Normal [facility] CBC AUTO DIFFon 11-01-2021 BASO # 0.1 103/ul Normal 0.0-0.1 [facility] Comment on above: Performed By: #### F T4 #### [facility] [address] [place] [address] Dr. Edil Gayle Basophils/100 WBC (Bld) 1.2 % Normal 0.2-2.0 [facility] Comment on above: Performed By: #### F T4 #### [facility] [address] [place] [address] Dr. Edil Gayle EO # 0.3 103/ul Normal 0.0-0.7 [facility] Comment on above: Performed By: #### F T4 #### [facility] [address] [place] [address] Dr. Edil Gayle Eosinophils/100 WBC (Bld) 2.7 % Normal 0.9-7.0 [facility] Comment on above: Performed By: #### F T4 #### [facility] [address] [place] [address] Dr. Edil Gayle Erythrocyte distribution width (RBC) [Ratio] 12.8 % Normal 11.0-15.0 [facility] Comment on above: Performed By: #### F T4 #### [facility] [address] [place] [address] Dr. Edil Gayle Hematocrit (Bld) [Volume fraction] 46.5 % Normal 36.0-48.0 [facility] Comment on above: Performed By: #### F T4 #### [facility] [address] [place] [address] Dr. Edil Gayle Hemoglobin (Bld) [Mass/Vol] 15.5 g/dL Normal 12.0-16.0 [facility] Comment on above: Performed By: #### F T4 #### [facility] [address] [place] [address] Dr. Edil Gayle IG # 0.02 10e3/ul Normal 0.00-0.03 [facility] Comment on above: Performed By: #### F T4 #### [facility] [address] [place] [address] Dr. Edil Gayle IG % 0.2 % Normal 0.0-0.5 [facility] Comment on above: Performed By: #### F T4 #### [facility] [address] [place] [address] Dr. Edil Gayle LYMPH # 2.1 103/ul Normal 1.2-3.8 [facility] Comment on above: Performed By: #### F T4 #### [facility] [address] [place] [address] Dr. Edil Gayle Lymphocytes/100 WBC (Bld) 20.4 % Critically low 20.5-60.0 [facility] Comment on above: Performed By: #### F T4 #### [facility] [address] [place] [address] Dr. Edil Gayle MANUAL DIFF REQ NO Normal [place] Comment on above: Performed By: #### F T4 #### [facility] [address] [place] [address] Dr. Edil Gayle MCH (RBC) [Entitic mass] 30.3 pg Normal 26.7-34.0 [facility] Comment on above: Performed By: #### F T4 #### [facility] [address] [place] [address] Dr. Edil Gayle MCHC (RBC) [Mass/Vol] 33.3 g/dL Normal 29.9-35.2 [facility] Comment on above: Performed By: #### F T4 #### [facility] [address] [place] [address] Dr. Edil Gayle MCV (RBC) [Entitic vol] 90.8 fL Normal 81.0-99.0 [facility] Comment on above: Performed By: #### F T4 #### [facility] [address] [place] [address] Dr. Edil Gayle MONO # 0.5 103/ul Normal 0.3-0.8 [facility] Comment on above: Performed By: #### F T4 #### [facility] [address] [place] [address] Dr. Edil Gayle Monocytes/100 WBC (Bld) 5.2 % Normal 1.7-12.0 [facility] Comment on above: Performed By: #### F T4 #### [facility] [address] [place] [address] Dr. Edil Gayle NEUT # 7.3 103/ul Critically high 1.4-6.5 [place] Comment on above: Performed By: #### F T4 #### [facility] [address] [place] [address] Dr. Edil Gayle Neutrophils/100 WBC (Bld) 70.3 % Normal 43.0-75.0 [facility] Comment on above: Performed By: #### F T4 #### [facility] [address] [place] [address] Dr. Edil Gayle Platelet mean volume (Bld) [Entitic vol] 8.8 fL Critically low 9.5-13.5 [facility] Comment on above: Performed By: #### F T4 #### [facility] [address] [place] [address] Dr. Edil Gayle PLT 294 103/ul Normal 150-450 [facility] Comment on above: Performed By: #### F T4 #### [facility] [address] [place] [address] Dr. Edil Gayle RBC 5.12 106/ul Normal 4.20-5.40 [facility] Comment on above: Performed By: #### F T4 #### [facility] [address] [place] [address] Dr. Edil Gayle WBC 10.3 103/ul Normal 4.0-11.0 [facility] Comment on above: Performed By: #### F T4 #### [facility] [address] [place] [address] Dr. Edil Gayle FREE T4on 11-01-2021 Free T4 [Mass/Vol] 0.88 ng/dL Normal 0.76-1.46 [facility] Comment on above: Performed By: #### F T4 #### [facility] [address] [place] [address] Dr. Edil Gayle GLYCOHEMOGLOBIN A1Con 2021 ADA RECOMMENDATION SEE BELOW Normal [facility] Comment on above: Result Comment: ADA RECOMMENDED LIMIT 4.0 - 6.0 ADA THERAPEUTIC TARGET < 7.0 ACTION SUGGESTED > 7.0 Performed By: #### A 1C #### [facility] [address] [place] [address] Dr. Edil Gayle Glucose [Mass/Vol] 108 mg/dL Normal [facility] Comment on above: Performed By: #### A 1C #### [facility] [address] [place] [address] Dr. Edil Gayle HbA1c (Bld) [Mass fraction] 5.4 % Normal 4.5-6.2 [facility] Comment on above: Performed By: #### A 1C #### [facility] [address] [place] [address] Dr. Edil Gayle LIPID PROFILEon 11-01-2021 CHOL-HDL RATIO NORM SEE BELOW Normal [facility] Comment on above: Result Comment: 3.3 - 4.4 LOW RISK 4.4 - 7.1 AVERAGE RISK 7.1 - 11.0 MODERATE RISK >11.0 HIGH RISK Performed By: #### T SH, CMP, LIPID #### [facility] [address] [place] [address] Dr. Edil Gayle Cholesterol [Mass/Vol] 246 mg/dL Critically high <=200 [facility] Comment on above: Performed By: #### T SH, CMP, LIPID #### [facility] [address] [place] [address] Dr. Edil Gayle Cholesterol in HDL [Mass/Vol] 48 mg/dL Normal 40-60 [facility] Comment on above: Performed By: #### T SH, CMP, LIPID #### [facility] [address] [place] [address] Dr. Edil Gayle Cholesterol in LDL [Mass/Vol] 172.6 mg/dL Normal [facility] Comment on above: Performed By: #### T SH, CMP, LIPID #### [facility] [address] [address] [address] Edil Gayle Cholesterol.total/C holesterol in HDL [Mass ratio] 5.1 {ratio} Normal [facility] Comment on above: Performed By: #### T SH, CMP, LIPID #### [facility] [address] [address] [address] Edil Gayle HDL NORMAL > or = 60 mg/dl - LO W CARDIOVASCULAR RISK <40 mg/dl - HIGH CARDIOVASCULAR RISK Normal [facility] Comment on above: Performed By: #### T SH, CMP, LIPID #### [facility] [address] [address] [address] Edil Gayle LDL CALC NORMAL SEE BELOW Normal [place] Comment on above: Result Comment: <100 mg/dl OPTIMAL 100 - 129 mg/dl NEAR OR ABOVE OPTIMAL 130 - 159 mg/dl BORDERLINE HIGH 160 - 189 mg/dl HIGH >190 mg/dl VERY HIGH Performed By: #### T SH, CMP, LIPID #### [facility] [address] [address] [address] Edil Gayle Triglyceride [Mass/Vol] 127 mg/dL Normal <=150 [facility] Comment on above: Performed By: #### T SH, CMP, LIPID #### [facility] [address] [address] [address] Edil Gayle VLDL CALC 25.4 mg/dL Normal [facility] Comment on above: Performed By: #### T SH, CMP, LIPID #### [facility] [address] [address] [address] Edil Gayle PROF 14(COMP METB)on 022 Albumin [Mass/Vol] 3.6 g/dL Normal 3.4-5.0 [facility] Comment on above: Performed By: #### T SH, CMP, LIPID #### [facility] [address] [address] [address] Edil Gayle Albumin/Globulin [Mass ratio] 1.0 {ratio} Normal [facility] Comment on above: Performed By: #### T SH, CMP, LIPID #### [facility] [address] [address] [address] Edil Gayle ALP [Catalytic activity/Vol] 109 U/L Normal 46-116 [facility] Comment on above: Performed By: #### T SH, CMP, LIPID #### [facility] [address] [address] [address] Edil Gayle ALT [Catalytic activity/Vol] 21 U/L Normal 14-59 [facility] Comment on above: Performed By: #### T SH, CMP, LIPID #### [facility] [address] [address] [address] Edil Gayle Anion gap [Moles/Vol] 10.9 mmol/L Normal [facility] Comment on above: Performed By: #### T SH, CMP, LIPID #### [facility] [address] [address] [address] Edil Gayle AST [Catalytic activity/Vol] 15 U/L Normal 15-37 [facility] Comment on above: Performed By: #### T SH, CMP, LIPID #### [facility] [address] [address] [address] Edil Gayle Bilirubin [Mass/Vol] 0.8 mg/dL Normal 0.2-1.0 [facility] Comment on above: Performed By: #### T SH, CMP, LIPID #### [facility] [address] [place] [address] Dr[address] Edil Gayle Calcium [Mass/Vol] 9.3 mg/dL Normal 8.5-10.1 [facility] Comment on above: Performed By: #### T SH, CMP, LIPID #### [facility] [address] [address] [address] Edil Gayle Chloride [Moles/Vol] 104 mmol/L Normal 98-107 [facility] Comment on above: Performed By: #### T SH, CMP, LIPID #### [facility] [address] [address] [address] Edil Gayle CO2 [Moles/Vol] 30.6 mmol/L Normal 21.0-32.0 [facility] Comment on above: Performed By: #### T SH, CMP, LIPID #### [facility] [address] [place] [address] Dr. Edil Gayle Creatinine [Mass/Vol] 0.77 mg/dL Normal 0.55-1.02 [facility] Comment on above: Performed By: #### T SH, CMP, LIPID #### [facility] [address] [place] [address] Dr. Edil Gayle EGFR-AF SAMMARINESE >60 Normal >=60 [facility] Comment on above: Performed By: #### T SH, CMP, LIPID #### [facility] [address] [place] [address] Dr. Edil Gayle EGFR-NON AF SAMMARINESE >60 Normal >=60 [facility] Comment on above: Performed By: #### T SH, CMP, LIPID #### [facility] [address] [place] [address] Dr. Edil Gayle Globulin (S) [Mass/Vol] 3.7 g/dL Normal [facility] Comment on above: Performed By: #### T SH, CMP, LIPID #### [facility] [address] [place] [address] Dr. Edil Gayle Glucose [Mass/Vol] 106 mg/dL Normal 74-106 [facility] Comment on above: Performed By: #### T SH, CMP, LIPID #### [facility] [address] [place] [address] Dr. Edil Gayle Potassium [Moles/Vol] 4.5 mmol/L Normal 3.5-5.1 [facility] Comment on above: Performed By: #### T SH, CMP, LIPID #### [facility] [address] [place] [address] Dr. Edil Gayle Protein [Mass/Vol] 7.3 g/dL Normal 6.4-8.2 [facility] Comment on above: Performed By: #### T SH, CMP, LIPID #### [facility] [address] [place] [address] Dr. Edil Gayle Sodium [Moles/Vol] 141 mmol/L Normal 136-145 [facility] Comment on above: Performed By: #### T ANA MARIA CMP, LIPID #### [facility] [address] [place] [address] Dr. Edil Gayle Urea nitrogen [Mass/Vol] 11.0 mg/dL Normal 7.0-18.0 [facility] Comment on above: Performed By: #### T ANA MARIA CMP, LIPID #### [facility] [address] [place] [address] Dr. Edil Gayle Urea nitrogen/Creatinine [Mass ratio] 14.3 mg/mg Normal [facility] Comment on above: Performed By: #### T ANA MARIA CMP, LIPID #### [facility] [address] [place] [address] Dr. Edil Gayle TSHon 11-01-2021 TSH 2.620 uIU/mL Normal 0.358-3.740 [facility] Comment on above: Performed By: #### T ANA MARIA CMP, LIPID #### [facility] [address] [place] [address] Dr. Edil Gayle CBC AUTO DIFFon 07-28-2021 BASO # 0.1 103/ul Normal 0.0-0.1 [facility] Comment on above: Performed By: #### C BC #### [facility] [address] [place] [address] Dr. Edil Gayle Basophils/100 WBC (Bld) 1.0 % Normal 0.2-2.0 [facility] Comment on above: Performed By: #### C BC #### [facility] [address] [place] [address] Dr. Edil Gayle EO # 0.3 103/ul Normal 0.0-0.7 [facility] Comment on above: Performed By: #### C BC #### [facility] [address] [place] [address] Dr. Edil Gayle Eosinophils/100 WBC (Bld) 2.9 % Normal 0.9-7.0 [facility] Comment on above: Performed By: #### C BC #### [facility] [address] [place] [address] Dr. Edil Gayle Erythrocyte distribution width (RBC) [Ratio] 13.0 % Normal 11.0-15.0 [facility] Comment on above: Performed By: #### C BC #### [facility] [address] [place] [address] Dr. Edil Gayle Hematocrit (Bld) [Volume fraction] 46.3 % Normal 36.0-48.0 [facility] Comment on above: Performed By: #### C BC #### [facility] [address] [place] [address] Dr. Edil Gayle Hemoglobin (Bld) [Mass/Vol] 15.4 g/dL Normal 12.0-16.0 [facility] Comment on above: Performed By: #### C BC #### [facility] [address] [place] [address] Dr. Edil Gayle IG # 0.03 10e3/ul Normal 0.00-0.03 [facility] Comment on above: Performed By: #### C BC #### [facility] [address] [place] [address] Dr. Edil Gayle IG % 0.3 % Normal 0.0-0.5 [facility] Comment on above: Performed By: #### C BC #### [facility] [address] [place] [address] Dr. Edil Gayle LYMPH # 2.4 103/ul Normal 1.2-3.8 [facility] Comment on above: Performed By: #### C BC #### [facility] [address] [place] [address] Dr. Edil Gayle Lymphocytes/100 WBC (Bld) 22.4 % Normal 20.5-60.0 [facility] Comment on above: Performed By: #### C BC #### [facility] [address] [place] [address] Dr. Edil Gayle MANUAL DIFF REQ NO Normal [place] Comment on above: Performed By: #### C BC #### [facility] [address] [place] [address] Dr. Edil Gayle MCH (RBC) [Entitic mass] 30.9 pg Normal 26.7-34.0 [facility] Comment on above: Performed By: #### C BC #### [facility] [address] [place] [address] Dr. Edil Gayle MCHC (RBC) [Mass/Vol] 33.3 g/dL Normal 29.9-35.2 [facility] Comment on above: Performed By: #### C BC #### [facility] [address] [place] [address] Dr. Edil Gayle MCV (RBC) [Entitic vol] 93.0 fL Normal 81.0-99.0 [facility] Comment on above: Performed By: #### C BC #### [facility] [address] [place] [address] Dr. Edil Gayle MONO # 0.7 103/ul Normal 0.3-0.8 [facility] Comment on above: Performed By: #### C BC #### [facility] [address] [place] [address] Dr. Edil Gayle Monocytes/100 WBC (Bld) 6.9 % Normal 1.7-12.0 [facility] Comment on above: Performed By: #### C BC #### [facility] [address] [place] [address] Dr. Edil Gayle NEUT # 7.1 103/ul Critically high 1.4-6.5 [facility] Comment on above: Performed By: #### C BC #### [facility] [address] [place] [address] Dr. Edil Gayle Neutrophils/100 WBC (Bld) 66.5 % Normal 43.0-75.0 [facility] Comment on above: Performed By: #### C BC #### [facility] [address] [place] [address] Dr. Edil Gayle Platelet mean volume (Bld) [Entitic vol] 9.4 fL Critically low 9.5-13.5 [facility] Comment on above: Performed By: #### C BC #### [facility] [address] [place] [address] Dr. Edil Gayle PLT 247 103/ul Normal 150-450 [facility] Comment on above: Performed By: #### C BC #### [facility] [address] [place] [address] Dr. Edil Gayle RBC 4.98 106/ul Normal 4.20-5.40 [facility] Comment on above: Performed By: #### C BC #### [facility] [address] [place] [address] Dr. Edil Gayle WBC 10.7 103/ul Normal 4.0-11.0 [facility] Comment on above: Performed By: #### C BC #### [facility] [address] [place] [address] ABD/PELV W CONon [...] MICHELLE HENRY Date: 2021-07-28 11:03 Normal [facility] ER URINE PROFILEon 2 Bilirubin Ql (U) Negative Normal NEGATIVE [facility] Comment on above: Performed By: #### E RUR #### [facility] [address] [place] [address] Dr. Edil Gayle Clarity (U) CLEAR Normal CLEAR [facility] Comment on above: Performed By: #### E RUR #### [facility] [address] [place] [address] Dr. Edil Gayle Color (U) YELLOW Normal YELLOW [facility] Comment on above: Performed By: #### E RUR #### [facility] [address] [place] [address] Dr. Edil Gayle ERUSINA A micrscopic examination will be performed if indicated. Normal [facility] Comment on above: Performed By: #### E RUR #### [facility] [address] [place] [address] Dr. Edil Gayle Glucose Ql (U) Negative Normal NEGATIVE [facility] Comment on above: Performed By: #### E RUR #### [facility] [address] [place] [address] Dr. Edil Gayle Hemoglobin Ql (U) Negative Normal NEGATIVE [facility] Comment on above: Performed By: #### E RUR #### [facility] [address] [place] [address] Dr. Edil Gayle Ketones Ql (U) Negative Normal NEGATIVE [facility] Comment on above: Performed By: #### E RUR #### [facility] [address] [place] [address] Dr. Edil Gayle LEUKOCYTES Negative Normal NEGATIVE [facility] Comment on above: Performed By: #### E RUR #### [facility] [address] [place] [address] Dr. Edil Gayle Nitrite Ql (U) Negative Normal NEGATIVE [facility] Comment on above: Performed By: #### E RUR #### [facility] [address] [place] [address] Dr. Edil Gayle pH (U) 6.0 [pH] Normal 5-9 [facility] Comment on above: Performed By: #### E RUR #### [facility] [address] [place] [address] Dr. Edil Gayle SPEC GRAVITY 1.030 Abnormal 1.005-<=1.02 5 [facility] Comment on above: Performed By: #### E RUR #### [facility] [address] [place] [address] Dr. Edil Gayle UA PROTEIN Negative Normal NEGATIVE/ TRACE [facility] Comment on above: Performed By: #### E RUR #### [facility] [address] [place] [address] Dr. Edil Gayle UR MICRO IND NOT INDICATED Normal [facility] Comment on above: Performed By: #### E RUR #### [facility] [address] [place] [address] Dr. Edil Gayle Urobilinogen Qn (U) 0.2 {Tee'U}/dL Normal 0.2 - 1. 0 [facility] Comment on above: Performed By: #### E RUR #### [facility] [address] [place] [address] Dr. Edil Gayle PROF CHEM 8 (BAS METB)on Anion gap [Moles/Vol] 9.8 mmol/L Normal [facility] Comment on above: Performed By: #### F T4 #### [facility] [address] [place] [address] Dr. Edil Gayle Calcium [Mass/Vol] 8.4 mg/dL Critically low 8.5-10.1 [facility] Comment on above: Performed By: #### F T4 #### [facility] [address] [place] [address] Dr. Edil Gayle Chloride [Moles/Vol] 106 mmol/L Normal 98-107 [facility] Comment on above: Performed By: #### F T4 #### [facility] [address] [place] [address] Dr. Edil Gayle CO2 [Moles/Vol] 29.1 mmol/L Normal 21.0-32.0 [facility] Comment on above: Performed By: #### F T4 #### [facility] [address] [place] [address] Dr. Edil Gayle Creatinine [Mass/Vol] 0.78 mg/dL Normal 0.55-1.02 [facility] Comment on above: Performed By: #### F T4 #### [facility] [address] [address] [address] Edil Gayle EGFR-AF SAMMARINESE >60 Normal >=60 [facility] Comment on above: Performed By: #### F T4 #### [facility] [address] [place] [address] Dr. Edil Gayle EGFR-NON AF SAMMARINESE >60 Normal >=60 [facility] Comment on above: Performed By: #### F T4 #### [facility] [address] [address] [address] Edil Gayle Glucose [Mass/Vol] 89 mg/dL Normal 74-106 [facility] Comment on above: Performed By: #### F T4 #### [facility] [address] [place] [address] Dr. Edil Gayle Potassium [Moles/Vol] 3.9 mmol/L Normal 3.5-5.1 [facility] Comment on above: Performed By: #### F T4 #### [facility] [address] [place] [address] Dr. Edil Gayle Sodium [Moles/Vol] 141 mmol/L Normal 136-145 [facility] Comment on above: Performed By: #### F T4 #### [facility] [address] [place] [address] Dr. Edil Gayle Urea nitrogen [Mass/Vol] 12.0 mg/dL Normal 7.0-18.0 [facility] Comment on above: Performed By: #### F T4 #### [facility] [address] [place] [address] Dr. Edil Gayle Urea nitrogen/Creatinine [Mass ratio] 15.4 mg/mg Normal [facility] Comment on above: Performed By: #### F T4 #### [facility] [address] [place] [address] Dr. Edil Ray 11-22-2020 RAFIA PATTERN SPECKLED Normal [facility] Comment on above: Result Comment: The JOSE [...] authority. Performed By: #### 1 0196 #### [facility] [address] RAFIA SCREEN 1:80 Abnormal <1:40,1:40 [facility] Comment on above: Result Comment: Test performed using JOSE C IFA RAFIA Hep-2 Test, a pre-standardized assay designed for the qualitative and semi-quantitative detection of antinuclear antibodies. Performed By: #### 1 0196 #### [address] C REACTIVE PROTEINon 021 CRP [Mass/Vol] 1.9 mg/L Normal 0.0-7.0 [facility] Comment on above: Performed By: #### 9 9744, 71413, 05235 #### [facility] [address] CBC W/DIFFon 11-22-2020 ABS IMM GRANS 0.0 10*3/uL Normal 0.0-0.2 [facility] Comment on above: Performed By: #### 5 0103, 35365 #### [facility] [address] ABS NEUTROPHILS 10.1 10*3/uL High 1.6-7.6 [facility] Comment on above: Performed By: #### 5 0103, 49641 #### [facility] [address] Basophils (Bld) [#/Vol] 0.1 10*3/uL Normal 0.0-0.2 [facility] Comment on above: Performed By: #### 5 0103, 31249 #### [facility] [address] [place] [address], [facility] Basophils/100 WBC (Bld) 0.8 % Normal 0.0-1.0 [facility] Comment on above: Performed By: #### 5 102, 48805 #### [facility] [address] [place] [address], [facility] Eosinophils (Bld) [#/Vol] 0.2 10*3/uL Normal 0.0-0.5 [facility] Comment on above: Performed By: #### 5 102, 18937 #### [facility] [address] [place] [address], [facility] Eosinophils/100 WBC (Bld) 1.2 % Normal 0.0-6.0 [facility] Comment on above: Performed By: #### 5 102, 67799 #### [facility] [address] [facility] [address] Erythrocyte distribution width (RBC) [Ratio] 13.2 % Normal 11.5-15.0 [facility] Comment on above: Performed By: #### 5 102, 85519 #### [facility] [address] [facility] [place] [place] [address], [facility] Hematocrit (Bld) [Volume fraction] 47.8 % High 36.0-45.0 [facility] Comment on above: Performed By: #### 5 102, 05252 #### [facility] [address] [facility] [place] [place] [address], [facility] Hemoglobin (Bld) [Mass/Vol] 16.1 g/dL High 12.0-15.0 [facility] Comment on above: Performed By: #### 5 102, 06727 #### [facility] [address] [place] [address], [facility] IMMATURE GRANS 0.3 % Normal 0.0-1.0 The [facility] Comment on above: Performed By: #### 5 102, 26297 #### [facility] [address] [place] [address], [facility] Lymphocytes (Bld) [#/Vol] 2.3 10*3/uL Normal 1.2-4.0 [facility] Comment on above: Performed By: #### 5 102, 14111 #### [facility] [address] [place] [address], [facility] Lymphocytes/100 WBC (Bld) 17.1 % Low 20.0-45.0 [facility] Comment on above: Performed By: #### 102, 27344 #### [facility] [address] [facility] [place] [place] [address], [facility] MCH (RBC) [Entitic mass] 30.8 pg Normal 27.0-33.0 [facility] Comment on above: Performed By: #### 102, 55933 #### [facility] [address] [facility] [place] [place] [address], [facility] MCHC (RBC) [Mass/Vol] 33.7 g/dL Normal 32.0-35.0 [facility] Comment on above: Performed By: #### 5 102, 88980 #### [facility] [address] [place] [address], [facility] MCV (RBC) [Entitic vol] 91.4 fL Normal 82.0-98.0 [facility] Comment on above: Performed By: #### 5 102, 26045 #### [facility] [address] [facility] [place] [place] [address], [facility] Monocytes (Bld) [#/Vol] 0.7 10*3/uL Normal 0.1-1.0 [facility] Comment on above: Performed By: #### 5 102, 00996 #### [facility] [address] [place] [address], [facility] MONOS 5.0 % Normal 5.0-12.0 [facility] Comment on above: Performed By: #### 5 010, 89450 #### [facility] [address] [place] [address], [facility] Neutrophils/100 WBC (Bld) 75.6 % High 40.0-72.0 [facility] Comment on above: Performed By: #### 5 010, 41781 #### [facility] [address] [place] [address], [facility] Nucleated RBC/100 WBC (Bld) [Ratio] 0 % Normal 0-0 [facility] Comment on above: Performed By: #### 5 0103, 46013 #### [facility] [address] [place] [address], [facility] PLAT CNT 303 10*3/uL Normal 150-400 The [facility] Comment on above: Performed By: #### 5 010, 01536 #### [facility] [address] [place] [address], [facility] RBC (Bld) [#/Vol] 5.23 10*6/uL High 3.80-5.00 [facility] Comment on above: Performed By: #### 5 0103, 88369 #### [facility] [address] [place] [address], [facility] WBC (Bld) [#/Vol] 13.31 10*3/uL High 4.00-10.60 [facility] Comment on above: Performed By: #### 5 010, 48372 #### [facility] [address] [place] [id number] 11-22-2020 CYCLIC CIT PEP 4 Units Normal 0-19 [facility] Comment [...] be monitored and testing repeated. Performed By: [employer] [address] [place] [id number] Admin Secretary: Olga Duval MD HAND LEFT 3 [facility] 11-22-2020 HAND LEFT 3 [facility] Department of Radiology [address] [place] [address] ===== Patient Name: ARACELI PÉREZ : 1980 Sex: F Age: Race: White Pt. Location: [facility] Patient Status: D Ordered Date: 11/22/2020 10:50:00 AM Completed Date: 11/22/2020 10:54 AM Requesting Provider: DANYA ROTHMAN Attending Provider: DANYA ROTHMAN Report Copy To: Signs & Symptoms: M25.50 Pain in unspecified joint I10 History: Lissette Comments: Evaluate Exam: HAND LEFT 3 [facility] ===== HAND LEFT 3 VWS 11/22/2020 10:54 [...] osteoarthritis. Electronically signed: Neftali Ralph. Transcribed by: [email or web address], User Resident: Electronically Signed by: NEFTALI RALPH @ 11/23/2020 09:30 AM Normal [facility] Comment on above: Order Comment: Evalu ate HAND RIGHT 3 Son HAND RIGHT 3 [facility] Department of Radiology [address] [place] [id number] ===== Patient Name: ARACELI PÉREZ : 1980 Sex: F Age: Race: White Pt. Location: [facility] Patient Status: D Ordered Date: 11/22/2020 10:50:00 AM Completed Date: 11/22/2020 10:54 AM Requesting Provider: DANYA ROTHMAN Attending Provider: DANYA ROTHMAN Report Copy To: Signs & Symptoms: M25.50 Pain in unspecified joint I10 History: Lissette Comments: Evaluate Exam: HAND RIGHT 3 S ===== HAND RIGHT 3 VWS 11/22/2020 10:54 [...] report. Electronically signed: Neftali Ralph. Transcribed by: [email or web address], User Resident: JOSIANE LAWRENCE Electronically Signed by: NEFTALI RALPH @ 11/23/2020 12:29 PM I personally read this/these film(s) with this resident Normal [facility] Comment on above: Order Comment: Evalu ate IMMUNOGLOB BLon 11-22-2020 IgA [Mass/Vol] 410 mg/dL Normal 60-413 [facility] Comment on above: Performed By: #### 9 9744, 54963, 84940 #### [facility] [address] [place] [address], [place] IgG [Mass/Vol] 908 mg/dL Normal 591-1540 [facility] Comment on above: Performed By: #### 9 9744, 17884, 90329 #### [facility] [address] [place] [address], [place] IgM [Mass/Vol] 58 mg/dL Normal 54-285 [facility] Comment on above: Performed By: #### 9 9744, 50899, 83599 #### [facility] [address] [place] [address], [place] RHEUMATOID FACTOR SERUMon RA <20 Normal 0-20 [facility] Comment on above: Performed By: #### 9 9744, 33691, 37960 #### [facility] [address] SEDIMENTATION RATEon 021 SED RATE 4 mm/hr Normal 0-20 [facility] Comment on above: Performed By: #### 5 0103, 39665 #### [facility] [address] t cell subset analysison CD3 % 86.24 % Normal 65.00-90.00 The [facility] Comment on above: Order Comment: This test was developed and its performance characteristics determined by the [facility] Flow Cytometry Laboratory. It has not been cleared or approved by the U.S. Food and Drug Administration. Performed By: #### 9 0116 #### [facility] [address] CD3 ABSOLUTE 1963 cells/mm3 Normal 760-2130 The [facility] Comment on above: Order Comment: This test was developed and its performance characteristics determined by the [facility] Flow Cytometry Laboratory. It has not been cleared or approved by the U.S. Food and Drug Administration. Performed By: #### 9 0116 #### [address] CD4 % 67.10 % Normal 40.00-70.00 The [facility] Comment on above: Order Comment: This test was developed and its performance characteristics determined by the [facility] Flow Cytometry Laboratory. It has not been cleared or approved by the U.S. Food and Drug Administration. Performed By: #### 9 0116 #### [facility] [address] CD4 ABSOLUTE 1527 cells/mm3 High 430-1185 The [facility] Comment on above: Order Comment: This test was developed and its performance characteristics determined by the [facility] Flow Cytometry Laboratory. It has not been cleared or approved by the U.S. Food and Drug Administration. Performed By: #### 9 0116 #### [facility] [address] CD4:CD8 RATIO 3.79 Normal 1.00-4.00 [facility] Comment on above: Order Comment: This test was developed and its performance characteristics determined by the [facility] Flow Cytometry Laboratory. It has not been cleared or approved by the U.S. Food and Drug Administration. Performed By: #### 9 0116 #### [facility] [address] CD8 % 17.70 % Normal 15.00-40.00 [facility] Comment on above: Order Comment: This test was developed and its performance characteristics determined by the [facility] Flow Cytometry Laboratory. It has not been cleared or approved by the U.S. Food and Drug Administration. Performed By: #### [id number] #### [address] CD8 ABSOLUTE 403 cells/mm3 Normal [id number] [facility] Comment on above: Order Comment: This test was developed and its performance characteristics determined by the [facility] Flow Cytometry Laboratory. It has not been cleared or approved by the U.S. Food and Drug Administration. Performed By: #### [id number] #### [address] Vital Signs Date Time Vital Sign Value Performing Clinician Facility 09-11-2024 13:27-0400 Body height 162.56 cm Tash VALERO Work Phone: [facility] 09-11-2024 13:27-0400 Body mass index (BMI) [Ratio] 43.6 kg/m2 Tash VALERO Work Phone: [facility] 09-11-2024 13:27-0400 Body temperature 97.3 [degF] Tash VALERO Work Phone: [facility] 09-11-2024 13:27-0400 Body weight 115.21 kg Tash Hairston IN STORE MARKETING ASSOCIATE-C Work Phone: [facility] 09-11-2024 13:27-0400 Diastolic blood pressure 86 mm[Hg] Tash Hairston IN STORE MARKETING ASSOCIATE-C Work Phone: [facility] 09-11-2024 13:27-0400 Heart rate 95 /min Tash Hairston IN STORE MARKETING ASSOCIATE-C Work Phone: [facility] 09-11-2024 13:27-0400 SaO2% (BldA) [Mass fraction] 96 % Tash Hairston IN STORE MARKETING ASSOCIATE-C Work Phone: [facility] 09-11-2024 13:27-0400 Systolic blood pressure 148 mm[Hg] Tash Hairston IN STORE MARKETING ASSOCIATE-C Work Phone: [facility] 07-31-2024 15:35-0400 Diastolic blood pressure 95 mm[Hg] Aamir Trevino MD Work Phone: [facility] 07-31-2024 15:35-0400 Systolic blood pressure 165 mm[Hg] Aamir Trevino MD Work Phone: [facility] 07-08-2024 09:04-0400 Body height 162.6 cm Freedom Hsu PA-C Work Phone: [facility] 07-08-2024 09:04-0400 Body mass index (BMI) [Ratio] 43.26 kg/m2 Freedom ALVARENGA-C Work Phone: [facility] 07-08-2024 09:04-0400 Body weight 114.31 kg Freedom ALVARENGA-C Work Phone: [facility] 07-08-2024 09:04-0400 Diastolic blood pressure 81 mm[Hg] Freedom ALVARENGA-C Work Phone: [facility] 07-08-2024 09:04-0400 Heart rate 97 /min Freedom Hsu PA-C Work Phone: [facility] 07-08-2024 09:04-0400 Systolic blood pressure 121 mm[Hg] Freedom Hsu PA-C Work Phone: [facility] 12-25-2023 12:14-0500 Body height 162.6 cm [facility] 1 [facility] 12-25-2023 12:14-0500 Body mass index (BMI) [Ratio] 46.35 kg/m2 [facility] 1 [facility] 12-25-2023 12:14-0500 Body weight 122.47 kg [facility] 1 [facility] 12-05-2023 09:41-0400 Body mass index (BMI) [Ratio] 42.89 kg/m2 Yu Guerrier STATISTICS MANAGER-PROGRAM OFFICER Work Phone: [facility] 12-05-2023 09:41-0400 Body weight 113.4 kg Yu Guerrier STATISTICS MANAGER-PROGRAM OFFICER Work Phone: [facility] 12-05-2023 09:41-0400 Diastolic blood pressure 77 mm[Hg] Yu Guerrier STATISTICS MANAGER-PROGRAM OFFICER Work Phone: [facility] 12-05-2023 09:41-0400 Heart rate 83 /min Yu Guerrier STATISTICS MANAGER-PROGRAM OFFICER Work Phone: [facility] 12-05-2023 09:41-0400 Systolic blood pressure 125 mm[Hg] Yu Guerrier STATISTICS MANAGER-PROGRAM OFFICER Work Phone: [facility] 06-01-2023 10:32-0400 Body height 162.6 cm Irwin Rodriguez MD Work Phone: [facility] 06-01-2023 10:32-0400 Body mass index (BMI) [Ratio] 43.06 kg/m2 Irwin Rodriguez MD Work Phone: [facility] 06-01-2023 10:32-0400 Body temperature 98.29 [degF] Irwin Rodriguez MD Work Phone: [facility] 06-01-2023 10:32-0400 Body weight 113.85 kg Irwin Rodriguez MD Work Phone: [facility] 06-01-2023 10:32-0400 Diastolic blood pressure 101 mm[Hg] Irwin Rodriguez MD Work Phone: [facility] 06-01-2023 10:32-0400 Heart rate 78 /min Irwin Rodriguez MD Work Phone: [facility] 06-01-2023 10:32-0400 Respiratory rate 18 /min Irwin Rodriguez MD Work Phone: [facility] 06-01-2023 10:32-0400 SaO2% (BldA) [Mass fraction] 100 % Irwin Rodriguez MD Work Phone: [facility] 06-01-2023 10:32-0400 Systolic blood pressure 145 mm[Hg] Irwin Rodriguez MD Work Phone: [facility] 04-25-2023 12:38-0400 Body height 162.6 cm Db Whitten MD Work Phone: [facility] 04-25-2023 12:38-0400 Body mass index (BMI) [Ratio] 42.05 kg/m2 Db Whitten MD Work Phone: [facility] 04-25-2023 12:38-0400 Body weight 111.13 kg Db Whitten MD Work Phone: [facility] 04-25-2023 12:38-0400 Diastolic blood pressure 99 mm[Hg] Db Whitten MD Work Phone: [facility] 04-25-2023 12:38-0400 Heart rate 93 /min Db Whitten MD Work Phone: [facility] 04-25-2023 12:38-0400 Systolic blood pressure 146 mm[Hg] Db Whitten MD Work Phone: [facility] 03-16-2023 10:58-0500 Body height 162.6 cm [facility] 1 [facility] 03-16-2023 10:58-0500 Body mass index (BMI) [Ratio] 42.05 kg/m2 P[facility] 1 [facility] 03-16-2023 10:58-0500 Body weight 111.13 kg Pmh 1 [facility] 03-01-2023 14:45-0500 Body height 162.56 cm Kisha Cordovaler Other [employer] Other 03-01-2023 14:45-0500 Body mass index (BMI) [Ratio] 42.05 kg/m2 Kisha Barkley Other [employer] Other 03-01-2023 14:45-0500 Body temperature 97.5 [degF] Kisha Barkley Other [employer] Other 03-01-2023 14:45-0500 Body weight 111.13 kg Kisha Barkley Other [employer] Other 03-01-2023 14:45-0500 Respiratory rate 18 /min Ksiha Cordovaler Other [employer] Other 03-01-2023 14:45-0500 SaO2% (BldA) [Mass fraction] 99 % Kisha Barkley Other [employer] Other 10-26-2022 09:00-0400 Body height 162.56 cm Albaro Wilson Other [employer] Other 10-26-2022 09:00-0400 Body mass index (BMI) [Ratio] 43.25 kg/m2 Albaro Wilson Other [employer] Other 10-26-2022 09:00-0400 Body weight 114.31 kg Albaro Wilson Other [facility] [employer] Other 10-26-2022 09:00-0400 Diastolic blood pressure 80 mm[Hg] Albaro Wilson Other [facility] [employer] Other 10-26-2022 09:00-0400 Systolic blood pressure 122 mm[Hg] Albaro Wilson Other [facility] [employer] Other 09-12-2022 14:20-0400 Diastolic blood pressure 70 mm[Hg] [facility] 09-12-2022 14:20-0400 Heart rate 70 /min [facility] 09-12-2022 14:20-0400 Respiratory rate 16 /min [facility] 09-12-2022 14:20-0400 SaO2% (BldA) [Mass fraction] 97 % [facility] 09-12-2022 14:20-0400 Systolic blood pressure 131 mm[Hg] [facility] 09-12-2022 12:54-0400 Body height 162.56 cm [facility] 09-12-2022 12:54-0400 Body temperature 98.2 [degF] [facility] 09-12-2022 12:54-0400 Body weight 113.39 kg [facility] Encounters Encounter Date Encounter Type Care Provider Facility Start: 09-11-2024 End: 09-11-2024 ambulatory Tash OLIVERC Work Phone: [facility] Work Phone: Start: 09-11-2024 End: 09-11-2024 Patient encounter procedure Nesha Hoang APRN PROGRAM OFFICER -[facility] Work Phone: Start: 08-11-2024 End: 08-11-2024 ambulatory Tash Hairston NP-C Work Phone: [facility] Work Phone: Start: 08-11-2024 End: 08-11-2024 Patient encounter procedure Leslie Rodriguez DO -[facility] Work Phone: Start: 07-31-2024 End: 07-31-2024 Patient encounter procedure Aamir Trevino MD Work Phone: [facility] Comment on above: 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 Start: 07-08-2024 End: 07-08-2024 Office outpatient new 45 minutes Freedom Hsu PA-C Work Phone: [facility] [place] Comment on above: Migraine with aura a nd without status migrainosus, not intractable (Primary Dx); Frequent headaches; Bilateral occipital neuralgia; History of cerebral aneurysm repair Start: 07-08-2024 End: 07-08-2024 ambulatory [facility] Start: 07-03-2024 End: 07-03-2024 ambulatory [facility] Start: 06-16-2024 End: 06-16-2024 Telephone encounter Christy Warner [facility] Comment on above: Question appointment Start: 06-05-2024 ambulatory [facility] Start: 06-02-2024 End: 06-02-2024 Bamboo flowsomari Williamson MD Work Phone: [facility] Start: 06-02-2024 End: 06-02-2024 Angela flowsomari Williamson MD Work Phone: [facility] [...] Greyson Lincoln Start: 05-15-2024 ambulatory MARISOL CANALES [facility] Start: 01-21-2024 End: 01-21-2024 [facility] Start: 01-11-2024 End: 01-11-2024 Telephone encounter Fabiola Berman [facility] Start: 12-31-2023 End: 12-31-2023 Evaluation and management of inpatient DB ELIZABETH [facility] Start: 12-25-2023 End: 12-25-2023 ambulatory [facility] Pat Phone Call Provider 1 [facility] - Pre Ad[facility] Start: 12-25-2023 End: 12-25-2023 ambulatory BHUMI OZUNANEAL [facility] Start: 12-05-2023 End: 12-05-2023 Patient encounter procedure Yu Walter Guerrier STATISTICS MANAGER-PROGRAM OFFICER Work Phone: [facility] Comment on above: Encounter for screen ing colonoscopy (Primary Dx) Start: 12-05-2023 End: 12-05-2023 ambulatory [facility] Start: 11-20-2023 End: 11-20-2023 Telephone encounter Yu Guerrier STATISTICS MANAGER-PROGRAM OFFICER Work Phone: [facility] Start: 10-22-2023 End: 10-22-2023 [facility] Start: 06-01-2023 End: 06-01-2023 Documentation procedure Osiris Colmenares [facility] Start: 06-01-2023 End: 06-01-2023 Office outpatient visit 15 minutes Irwin Rodriguez MD Work Phone: Anabel Colmenares [facility] Comment on above: Factor 5 Leiden muta tion, heterozygous (CMS-HCC) (Primary Dx) Start: 04-25-2023 End: 04-25-2023 Office outpatient visit 15 minutes Db Whitten MD Work Phone: [facility] Comment on above: 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 (Primary Dx) Start: 03-19-2023 Telephone encounter Db Whitten MD Work Phone: [facility] Start: 03-16-2023 End: 03-16-2023 ambulatory h Pat Phone Call Provider 1 [facility] - Pre Admit Start: 03-01-2023 End: 03-01-2023 ambulatory Kisha Barkley Other [employer] Other Start: 03-01-2023 Office outpatient visit 25 minutes Kisha Barkley [facility] Start: 10-26-2022 End: 10-26-2022 ambulatory Albaro Wilson Other [employer] Other Start: 10-26-2022 Office outpatient visit 15 minutes Albaro Wilson [facility] Start: 09-19-2022 End: 09-19-2022 ambulatory Albaro Wilson Other [employer] Other Start: 09-19-2022 Telephone encounter [facility] Start: 09-12-2022 End: 09-12-2022 ambulatory Siva You Facility:[facility] Start: 09-12-2022 End: 09-12-2022 Admission to same day surgery center [facility] Work Phone: Start: 09-12-2022 End: 09-12-2022 ambulatory NON STAFF [facility] Work Phone: Start: 06-07-2022 ambulatory SHAD SHAMMO Facility:H 1 Start: 04-21-2022 End: 04-22-2022 ambulatory SHAD SHAMMO Facility:[facility] Start: 04-03-2022 End: 04-03-2022 ambulatory SHAD SHAMMO Facility:[facility] Start: 01-31-2022 End: 02-01-2022 ambulatory LASHAUNELEUTERIO ANDRE Facility:[facility] Start: 01-10-2022 End: 01-11-[address] OMAR GUIDRY . Facility:[facility] Start: 12-20-2021 End: 12-20-2021 ambulatory NON STAFF Facility:[facility] Start: 12-20-2021 End: 12-20-2021 ambulatory NON STAFF [facility] Work Phone: Start: 12-20-2021 End: 12-20-2021 Patient encounter procedure DO Ron Wallace Work Phone: [facility] [place] Start: 12-20-2021 End: 12-21-[address] OMAR GUIDRY . Facility:[facility] Start: 12-10-2021 End: 12-11-2021 ambulatory SHAD SHAMMO Facility:[facility] Start: 12-06-2021 End: 12-07-2021 ambulatory SHAD SHAMMO Facility:[facility] Start: 11-08-2021 End: 11-09-2021 ambulatory SHAD SHAMMO Facility:[facility] Start: 11-03-2021 Encounter for genera l adult medical examination without abnormal findings DR DOCTOR HORNER [facility] Start: 11-01-2021 End: 11-02-[address] DOCTOR HORNER Facility:[facility] Start: 11-01-2021 End: 11-02-2021 Encounter for general adult medical examination without abnormal findings DR DOCTOR HORNER Facility:[facility] Start: 09-23-2021 End: 09-23-[address] CASSY DODSON . Facility:[facility] Start: 07-28-2021 End: 07-28-2021 ambulatory IRAM ROTH Facility:[facility] Procedures Date Procedure Procedure Detail Performing Clinician Start: 07-31-2024 [facility] Aamir Trevino MD Work Phone: Start: 06-02-2024 End: 06-02-2024 SKIN / NAIL BIOPSY Chau Williamson MD Work Phone: Start: 12-31-2023 Colonoscopy Fabiola Berman CMA Start: 09-12-2022 Esophagogastroduodenoscopy Start: 07-05-2022 Adult depression screening assessment [facility] 1 Start: 07-19-2020 Mammography Chau Williamson MD Work Phone: Plan of Treatment Date Care Activity Detail Author Start: 12-30-2033 Screening for malignant neoplasm of colon [facility] Start: 12-30-2028 Screening for malignant neoplasm of colon Colonoscopy [facility] Start: 09-28-2028 DTaP,Tdap and Td Vaccines (2 - Td or Tdap) DTaP,Tdap and Td Vaccines (2 - Td or Tdap) [facility] Start: 07-08-2025 Adult BMI Screening Adult BMI Screening [facility] Start: 07-08-2025 Tobacco Screening Tobacco Screening [facility] Start: 12-30-2024 Adult BMI Screening Adult BMI Screening [facility] Start: 12-30-2024 Tobacco Screening Tobacco Screening [facility] Start: 12-24-2024 Adult BMI Screening Adult BMI Screening [facility] Start: 12-24-2024 Tobacco Screening Tobacco Screening [facility] Start: 12-04-2024 Adult BMI Screening Adult BMI Screening [facility] Start: 12-04-2024 Tobacco Screening Tobacco Screening [facility] Start: 12-03-2024 End: 12-03-2024 Patient encounter procedure 12/03/2024 10:00 AM EDT Office Visit [facility] [address] [place] [address] Chau Williamson MD [address] [place] [address] [facility] Start: 10-08-2024 End: 10-08-2024 Patient encounter procedure 10/08/2024 9:00 AM EDT Office Visit [facility] [place] [address] Freedom Hsu, VANIA [address], [address] [place] [address] [facility] [place] Start: 10-06-2024 Influenza vaccination [facility] Start: 07-08-2024 End: 07-08-2024 Patient encounter procedure 07/08/2024 9:00 AM EDT Office Visit [facility] [place] [address] [place] [phone] Freedom Hsu PA-C [address], [address] [place] [phone] [facility] [place] Start: 07-03-2024 End: 07-03-2024 Patient encounter procedure [facility] Start: 06-02-2024 End: 06-02-2024 Patient encounter procedure 06/02/2024 10:20 AM EDT Office Visit [facility] [address] [place] [address] Chau Williamson MD [address] [place] [address] Arrived [facility] Comment on above: Arrived Start: 05-31-2024 Adult BMI Screening Adult BMI Screening [facility] Start: 04-24-2024 Adult BMI Screening Adult BMI Screening [facility] Start: 04-24-2024 Tobacco Screening Tobacco Screening [facility] Start: 03-19-2024 Tobacco Screening Tobacco Screening [facility] Start: 03-16-2024 Adult BMI Screening Adult BMI Screening [facility] Start: 01-02-2024 Tobacco Screening Tobacco Screening [facility] Start: 12-31-2023 End: 12-31-2023 Admission to same day surgery center [facility] Comment on above: COLONOSCOPY DIAGNOSTIC / SCREENING [4537 8 (CPT )] Start: 12-31-2023 End: 12-31-2023 Anesthesia consultation 12/31/2023 12:00 PM EST Anesthesia Event [facility] [address] [place] [phone] Derick Snyder, DO [address] [place] [address] [facility] Start: 12-31-2023 End: 12-31-2023 Colonoscopy flx dx w/collj spec when [facility] Start: 12-31-2023 Subsequent hospital visit by physician [facility] Start: 12-17-2023 End: 12-17-2023 ambulatory 12/17/2023 3:40 PM EST Support Visit [facility] - Pre Admit [address] [place] [phone] [facility] Start: 10-07-2023 Influenza vaccination Influenza Vaccine [facility] Start: 07-06-2023 Depression Screening Depression Screening [facility] Start: 06-01-2023 End: 06-01-2023 Patient encounter procedure 06/01/2023 10:30 AM EDT Office Visit Anabel L [facility] [address] [place] [phone] Irwin Rodriguez MD [address] [place] [address] Anabel Keane [facility] Start: 04-27-2023 End: 04-27-2023 Patient encounter procedure 04/27/2023 3:15 PM EDT Office Visit Anabel L [facility] [address] [place] [phone] Irwin Rodriguez MD [address] [place] [address] Anabel Keane Baker [facility] Start: 03-19-2023 End: 03-19-2023 Patient encounter procedure 03/19/2023 3:45 PM EST Office Visit [facility] [address] [place] [address] Db Whitten MD [address] [place] [address] [facility] Start: 03-19-2023 End: 03-19-2023 Admission to same day surgery center 03/19/2023 9:30 AM EST - 03/19/2023 10:00 AM EST Surgery [facility] [address] [facility] [place] [phone] Db Whitten MD [address] [place] [address] CYSTOSCOPY WITH BLADDER IRRIGATION AND [facility] BLADDER SOLUTION [92132 (CPT )] [facility] Comment on above: CYSTOSCOPY WITH BLADDER IRRIGATION AND [facility] BLADDER SOLUTION [33526 (CPT )] Start: 03-19-2023 End: 03-19-2023 Cystourethroscopy [facility] Start: 03-19-2023 Subsequent hospital visit by physician 03/19/2023 9:30 AM EST Hospital Encounter [facility] [address] [facility] [place] [phone] Db Whitten MD [address] [place] [address] [facility] Start: 10-06-2022 Influenza vaccination Influenza Vaccine [facility] Start: 09-12-2022 [facility] Start: 12-20-2021 MR Unspecified body region [facility] Start: 12-20-2021 MRI of head MR head/brain wo/w con [facility] Start: 07-19-2021 Screening for malignant neoplasm of breast Mammogram [facility] Start: 2008 Screening for malignant neoplasm of cervix [facility] Start: 09-05-1999 Screening for malignant neoplasm of cervix Pap Smear [facility] Start: 1996 Adult BMI Follow Up Plan Adult BMI Follow Up Plan [facility] Start: 1978 Screening for malignant neoplasm of colon [facility] Start: 1978 Tobacco Counseling Tobacco Counseling [facility] End: 12-04-2024 Colonoscopy Colonoscopy GI Routine Encounter for screening colonoscopy 1 Occurrences starting 12/05/2023 until 12/04/2024 [facility] Work Phone: Comment on above: 1 Occurrences starting 12/05/2023 until 12/04/2024 Comprehensive metabo lic 2000 panel - Serum or Plasma [facility] Dermatopathology exam Dermatopat hology exam Pathology and Cytology Timed Neoplasm of unspecified behavior of bone, soft tissue, and skin Release Upon Ordering for 1 Occurrences starting 06/02/2024 [facility] Work Phone: Comment on above: Release Upon Ordering for 1 Occurrences starting 06/02/2024 Patient Education [facility] Work Phone: [facility] Immunizations Immunization Date Immunization Notes Care Provider Fa cility 09-28-2018 tetanus toxoid, redu moon diphtheria toxoid, and acellular pertussis vaccine, adsorbed [facility] 1 [facility] Payers Date Payer Category Payer Medicaid [id number] 2022 Medicaid [id number] 2021 Self-pay [id number] 1978 Unknown [id number] 2.16.84 0.1.074633.3.579.2.593 1978 Unknown [id number] .16.84 0.1.798836.3.579.2.593 1978 Unknown [id number] .16.84 0.1.443703.3.579.2.593 1978 Unknown [id number] .16.84 0.1.303428.3.579.2.593 1978 Unknown [id number] .16.84 0.1.916432.3.579.2.593 1978 Unknown [id number] 2.16.84 0.1.593802.3.579.2.593 1978 Unknown [id number] 2.16.84 0.1.529132.3.579.2.593 1978 Unknown [id number] 2.16.84 0.1.800329.3.579.2.593 1978 Unknown [id number] 2.16.84 0.1.486994.3.579.2.593 1978 Unknown [id number] 2.16.84 0.1.298775.3.579.2.593 1978 Unknown [id number] 2.16.84 0.1.397870.3.579.2.593 1978 Unknown [id number] 2.16.84 0.1.726436.3.579.2.593 1978 Unknown [id number] 2.16.84 0.1.004967.3.579.2.593 1978 Unknown [id number] 2.16. 840.1.546125.3.579.2.1285 1978 Unknown [id number] 2.16. 840.1.113926.3.579.2.1285 1978 Unknown [id number] 2.16. 840.1.206573.3.579.2.1285 1978 Unknown [id number] 2.16. 840.1.636036.3.579.2.1285 1978 Unknown [id number] 2.16.8 40.1.533812.3.579.2.1285 1978 Unknown [id number] 2.16.8 40.1.234374.3.579.2.1285 1978 Unknown [id number] 2.16. 840.1.557723.3.579.2.1285 1978 Unknown [id number] 2.16.8 40.1.463083.3.579.2.1286 1978 Unknown [id number] 2.16.8 40.1.151751.3.579.2.1259 1978 Unknown [id number] 2.16.84 0.1.221817.3.579.2.1259 1959 Medicaid [id number] Unknown [id number] 2.16.8 40.1.103313.3.579.2.531 Unknown [id number] 2.16.8 40.1.983994.3.579.2.531 Social History Date Type Detail Facility Tobacco smoking stat [facility] Unknown if ever smoked [facility] Work Phone: Start: 1980 Sex Assigned At Female F [facility] Start: 09-12-[address] [facility] Smoker (finding) [facility] Start: 07-05-2022 End: 07-31-2024 Sex Assigned At [facility] Start: 03-19-2023 End: 09-11-2024 Tobacco smoking status VTIS Smokes tobacco daily [facility] History of tobacco use Cigarette Smoker P [facility] Start: 03-19-2023 End: 07-31-2024 Cigarettes smoked current (pack per day) - Reported 0.3 [facility] Start: 03-19-2023 End: 06-02-2024 Tobacco use and exposure Smokeless tobacco non-user [facility] Start: 04-25-2023 End: 07-08-2024 Alcoholic beverage intake Current non-drinker of alcohol (finding) [facility] How often to you hav e a drink containing alcohol? Never [facility] How many standard drinks containing alcohol do you have on a typical day? Patient does not drink [facility] Start: 06-21-2022 Tobacco Comment Has a patch an d down to 4 cig. Per day [facility] Start: 1980 Sex assigned at Not on file P [facility] Start: 09-10-2014 Sex Female (finding) [facility] Start: 05-21-2024 Gender identity Identifies as female gender (finding) [facility] Start: 07-31-2024 Alcoholic beverage intake Defer [facility] Medical Equipment Procedure Code Equipment Code Equipment Origin al Text Equipment Identifier Dates Graft Bn 5ml Yomi Puros Strl Lf - [id number] Start: 07-05-2022 [place] Yasargil Titanium Aneurysm Clip [id number] Start: 07-05-2022 Cover Bur Hl 14m m Lp Tab Unv Neuro 2 Thk.5mm Ns Lf - [id number] Start: 07-05-2022 Cover Bur Hl Crn fcl 10mmx.5mm Lp Tab Strl Lf Disp - [id number] Start: 07-05-2022 Plate Bn 16mm 2 Hl Lp Unv Neuro Ii Crnmxf Ti Ns Lf 1.5mm Scr - [id number] Start: 07-05-2022 Screw Bn 4mm 1.5 mm Slf Drl Xpn Crnmxf Strl - [id number] Start: 07-05-2022 Goals Date Patient Goal Desired Activity /State Clinical Notes 12-20-2021 to 08-11-2024 Note Date & Type Note Facility 08-11-2024 Evaluation note Diagnosis Onset Date Resolution Low back pain at multiple sites acute August 11, 2024 8 :25am Numbness and tingling acute Aug 8:25am Hypertension acute September 11, 2024 1:16pm [facility] Work Phone: 1(760) 455-138506-26-2025 History of Present illness Narrative* Aamir Trevino MD - 07/31/2024 1:15 PM EDT Images from the original note were not included. Mohs Surgery Location: Left occipital scalp Date of biopsy: 06/02/2024 Diagnosis: Squamous Cell Carcinoma All pertinent medical history, medications, and allergies were reviewed. General Exam: alert, oriented to person, place, and time, normal affect, well appearing Unaccompanied A focused exam completed based on patient reported problems, see below: Skin Exam 1. SQUAMOUS CELL CARCINOMA OF SKIN OF SCALP AND NECK Left Occipital Scalp 3mm, very tender, hyperkeratotic papule at the biopsy site. Mohs surgery Consent obtained: written (The rationale for Mohs as well as the risks, benefits, and alternatives.The risks of infection, scarring, bleeding, prolonged wound healing, incomplete removal, allergy toanesthesia or meds, nerve injury, and recurrence were addressed.) Whitmer Protocol: Procedure explained and questions answered to patient or proxy's satisfaction: Yes Test results available and properly labeled: Yes Pathology report reviewed: Yes Photo or diagram used for site identification: Yes Site/side marked: Yes Anticoagulation: Is the patient taking prescription anticoagulant and/or aspirin prescribed/recommended by a physician? No Anesthesia: Anesthesia method: local infiltration Local anesthetic: lidocaine 1% WITH epi and sodium bicarbonate Procedure Details: Biopsy accession number: [id number] Biopsy lab: [facility] Date of biopsy: 06/02/2024 Frozen section biopsy performed: Yes Specimen debulked: No Pre-Op diagnosis: squamous cell carcinoma SCC subtype: well differentiated and KA type MohsAIQ Surgical site (if tumor spans multiple areas, please select predominant area): scalp Surgery side: left Surgical site (from skin exam): Left Occipital Scalp Pre-operative length (cm): 0.7 Pre-operative width (cm): 0.7 Indications for Mohs surgery: anatomic location where tissue conservation is critical Previously treated? No Mohs Appropriate Use Criteria Score: 8 Details of micrographic surgery: Mohs accession number: [id number] Micrographic Surgery Details: Post-operative length (cm): 0.5 Post-operative width (cm): 0.5 Number of Mohs stages: 2 Post surgery depth of defect: subcutaneous fat Stage 1 Comments: The area was prepped with Betadine, draped in a sterile fashion, and infiltrated with local anesthetic. Sterile technique was used throughout the procedure. The marked area of clinical tumor with a small rim of clinically normal surrounding skin was removed using Mohs technique with beveled edges. Hash zavala were placed for orientation of the specimen. Hemostasis was achieved with electrodessication. After hemostasis, the defect was measured and recorded, a temporary sterile dressing was placed over the wound, and the patient was escorted to the waiting area. The specimen was oriented, mapped, and if necessary, divided into sections. A Mohs map was prepared. The specimen was placed in a labeled denise dish and was taken to the Mohs lab where it was chromacoded and processed. Mohssections were prepared with serial tissue sections, stained, and evaluated by Dr. Trevino for interpretation of deep and peripheral margins. The Mohs map was marked accordingly. Amount of lidocaine used: 2.0 cc Estimated blood loss: < 1.0 cc Defect size: 0.4 x 0.4 cm Number of blocks per stage: 1 Number of positive blocks: 1 Tumor features identified on Mohs section: squamous cell carcinoma Depth of tumor invasion after stage: dermis Stage 2 Comments: The patient returned to the procedure room, the dressing was removed, the tumor area was re-prepped and draped, and anesthesia was assessed and augmented as necessary. A layer of tissue around the positive margin(s) was removed, and the tissue was oriented, mapped, and processed in an identical fashion as for Stage 1. Hemostasis was achieved and dressing placed as in Stage 1. The patient was escorted to the waiting area. As with Stage 1, Mohs sections were prepared with serial tissue sections, stained, and evaluated by Dr. Trevino for interpretation of deep and peripheral margins. The Mohs map was updated. Assistants: Huang Mcdonough LPN Amount of lidocaine used: 2.0 cc Estimated blood loss: < 1.0 cc Defect size: 0.5 x 0.5 cm Number of blocks: 1 Number of positive blocks: 0. Tumor free margins were obtained and the Mohs procedure was considered complete. Depth of tumor invasion after stage: subcutaneous fat Patient tolerance of procedure: tolerated well, no immediate complications Reconstruction: Was the defect reconstructed?: No Antibiotics: Were antibiotics given on the day of surgery?: No Mohs Post Operative Type of repair: None. Wound to heal by secondary intention. Wound Care: A dressing was placed on the surgical wound. Post-operative instructions were given in writing and were reviewed with the patient. A follow- up appointment was made, and instructions were given to follow-up sooner if necessary. Next visit: 4 months/skin check documented in this encounterMissouri Baptist Medical [id number] Miscellaneous Notes* Telephone Encounter - Janis Maze - 07/08/2024 3:48 PM EDT PA for Nurtec pending via CMM with osborne # [id number] * Telephone Encounter - Janis [facility] - 07/08/2024 3:48 PM EDT Approved with [employer] case # [id number] valid till 01/03/25. Approved for 8 per 30 days documented in this encounterC[facility]06-[facility]-2025 Telephone encounter Note* Telephone Encounter - [employer] - 07/08/2024 3:48 PM EDT PA for Nurtec pending via CMM with osborne # [id number] [facility] EverPresent [id number] Telephone encounter Note* Telephone Encounter - [employer] - 07/08/2024 3:48 PM EDT Approved with [employer] case # [id number] valid till 01/03/25. Approved for 8 per 30 days [facility]06-03-2025 History of Present illness Narrative* Freedom Hsu PA-C - 07/08/2024 9:00 AM EDT [facility] Neurology Office Note 07/07/2024 12:57 PM Patient info: Araceli Pérez is a 43 y.o. female Account No.: [id number] Acct: : 1980 PCP: SALVATORE FERREIRA Chief Complaint: Patient, 43 year old right hand dominant female, presents today for initial Neurological evaluationregarding headaches. Referred by Dr. Parker HODGSON Araceli is present in the office today by [...] of significant head injury/trauma: (-) hx of FRONT CLERK infection: (+) hx of stroke or cerebrovascular malformation: (-) hx of intracranial mass/tumor/cyst/malformation: (+) hx of anxiety/depression/mood disorder: Caffeine Consumption: - none Family Hx: (+) known family member/s with hx of recurrent HANNA/migraines: mother (+) known family member/s with hx of cerebral aneurysm: (-) known family member/s with hx of intracranial mass/tumor/cyst/malformation: Difficulty with gait or recurrent falls: none Araceli does not wear corrective eye lenses. Most [...] greater occipital notch induces pain/discomfort bilaterally ASSESSMENT: Araceli is a 43 year old right hand [...] Hsu PA-C 07/08/24 1029 documented in this encounterCleveland [facility]05-12-2025 Miscellaneous Notes* Telephone Encounter - Christy Warner - 06/16/2024 9:10 AM EDT Received new patient referral. Please call patient to schedule a new patient appointment for Frequent headaches IS THIS DUE TO AN ACCIDENT? IS THIS WORKER'S COMP? PLEASE VERIFY IF THIS IS WORKERS COMP AND DOCUMENT (We do not accept any new workers comp cases) WHAT INSURANCE? HAVE YOU EVER BEEN SEEN BY A NEUROLOGIST BEFORE? * Telephone Encounter - Olga Boyd - 06/16/2024 9:10 AM EDT Conditioning Machine Operator spoke to patient regarding new patient appointment for headaches. Patient stated during the conversation previously seen for aneurysm and had brain surgery two years ago. Please advise can patient be seen by Dr Henson in [place] for headaches or if she should be seen by Dr Bautista. Patient prefers [place] location . Patient can be reached at [phone]. Thanks so much * Telephone Encounter - Lisa Gamez RN - 06/16/2024 9:10 AM EDT Patient had aneurysm clipped in 2022 by [facility]. Okay to schedule for headaches. * Telephone Encounter - Olga Boyd - 06/16/2024 9:10 AM EDT Conditioning Machine Operator spoke to patient regarding scheduling with Dr Henson in [place]. Patient was driving will call back into the office to schedule. documented in this encounterCleveland [facility]05-12-2025 Telephone encounter Note* Telephone Encounter - Christy Warner - 06/16/2024 9:10 AM EDT Received new patient referral. Please call patient to schedule a new patient appointment for Frequent headaches IS THIS DUE TO AN ACCIDENT? IS THIS WORKER'S COMP? PLEASE VERIFY IF THIS IS WORKERS COMP AND DOCUMENT (We do not accept any new workers comp cases) WHAT INSURANCE? HAVE YOU EVER BEEN SEEN BY A NEUROLOGIST BEFORE? [facility]05-12-2025 Telephone encounter Note* Telephone Encounter - Olga Boyd - 06/16/2024 9:10 AM EDT Conditioning Machine Operator spoke to patient regarding new patient appointment for headaches. Patient stated during the conversation previously seen for aneurysm and had brain surgery two years ago. Please advise can patient be seen by Dr Henson in [place] for headaches or if she should be seen by Dr Bautista. Patient prefers [place] location . Patient can be reached at [phone]. Thanks so much [facility]05-12-2025 Telephone encounter Note* Telephone Encounter - Lisa Gamez RN - 06/16/2024 9:10 AM EDT Patient had aneurysm clipped in 2022 by ALIA. Irineo to schedule for headaches. [facility]05-12-2025 Telephone encounter Note* Telephone Encounter - Olga Boyd - 06/16/2024 9:10 AM EDT Conditioning Machine Operator spoke to patient regarding scheduling with Dr Henson in [place]. Patient was driving will call back into the office to schedule. [facility]04-28-2025 History of Present illness Narrative* Chau Williamson MD - 06/02/2024 10:20 AM EDT Images from the original note were not [...] TISSUE, AND SKIN (3) Vertex of Scalp Corazon pearly papule Lesion biopsy Type of biopsy: [...] Visit: pending biopsy results documented in this encounterMissouri Baptist Medical [id number] NoteUT Cardiology - [facility] Subjective Araceli Pérez is a [...] directed., Disp: 90 tablet, Rfl: 3 omega 9-tfw-lmr-fish oil 300-1,000 mg capsule,delayed release(DR/EC), , Disp: [...] liver function stable Chol (more content not included)...[facility]12-06-2024 Miscellaneous Notes* Telephone Encounter - Fabiola Berman CMA - 01/11/2024 2:05 PM EST ----- Message from Dr. Db Elizabeth DO sent at 01/10/2024 7:23 AM EST ----- Please let patient know that she had a colon polyp which was precancerous and I recommend surveillance colonoscopy in 5 years unless problems. Thanks, Dr. Hough * Telephone Encounter - Fabiola Berman CMA - 01/11/2024 2:05 PM EST I gave the patient the results message from Dr Elizabeth. She stated complete understanding. documented in this encounterC[facility]12-06-2024 Telephone encounter Note* Telephone Encounter - Fabiola Berman CMA - 01/11/2024 2:05 PM EST ----- Message from Dr. Db Elizabeth DO sent at 01/10/2024 7:23 AM EST ----- Please let patient know that she had a colon polyp which was precancerous and I recommend surveillance colonoscopy in 5 years unless problems. ThanksDr. Hough [facility]12-06-2024 Telephone encounter Note* Telephone Encounter - Fabiola Berman CMA - 01/11/2024 2:05 PM EST I gave the patient the results message from Dr Elizabeth. She stated complete understanding. [facility]11-19-2024 Miscellaneous Notes* Perioperative Nursing Note - Radha Andrade RN - 12/25/2023 2:20 PM EST Preoperative Education Checklist- General Surgery date: 12/31/23 Surgery time: 1200 Arrival time: 1000 1. Bring a photo ID and your insurance card with you the day of surgery. You will check in at the main lobby of the [facility]- registration desk is straight ahead as soon as you walk in. Tell them you are here for surgery. 2. If you have a Living Will/Durable Power of Batch Freezer for Health Care that is not on [...] after you have bathed. 5. NO nail mauritian/acrylic on at least one finger. If you are having a hand, wrist or foot surgery then all nail mauritian and artificial/acrylic nails must be removed from [...] least 8 hours and marijuana for 24 hoursprior to arrival for your surgery. 16. If [...] please call the Preadmission Testing office at [phone], Mon.-Fri. 7 a.m.-3 p.m. Leave a voicemail [...] taking 0 days prior to procedure omega 3-ucx-xjq-fish oil (FISH OIL) 300-1,000 mg capsule,delayed release(DR/EC) [...] days prior to procedure documented in this encounterMercy Health Urbana HospitalJust Gotta Make It Advertising [facility] [id number] Nurse Note* Perioperative Nursing Note - Radha Andrade RN - 12/25/2023 2:20 PM EST Preoperative Education Checklist- General Surgery date: 12/31/23 Surgery time: 1200 Arrival time: 1000 1. Bring a photo ID and your insurance card with you the day of surgery. You will check in at the main lobby of the [facility]- registration desk is straight ahead as soon as you walk in. Tell them you are here for surgery. 2. If you have a Living Will/Durable Power of Batch Freezer for Health Care that is not on [...] after you have bathed. 5. NO nail mauritian/acrylic on at least one finger. If you are having a hand, wrist or foot surgery then all nail mauritian and artificial/acrylic nails must be removed from [...] least 8 hours and marijuana for 24 hoursprior to arrival for your surgery. 16. If [...] please call the Preadmission Testing office at [phone], Mon.-Fri. 7 a.m.-3 p.m. Leave a voicemail [...] taking 0 days prior to procedure omega 9-kci-suc-fish oil (FISH OIL) 300-1,000 mg capsule,delayed release(DR/EC) [...] Stop taking 0 days prior to procedure [facility]10-30-2024 History of Present illness Narrative* Yu Guerrier, STATISTICS MANAGER-PROGRAM OFFICER - 12/05/2023 9:30 AM EDT Chief Complaint: Colon cancer screening History of [...] pain Acid reflux Arthritis Asthma Bleeding disorder ([facility]) Factor V(clotting disorder) per patient Cerebral aneurysm Clotting disorder ([facility]) Dental disease Upper dentures, lower partial Depression Dysphagia Endometriosis Factor 5 Leiden mutation, heterozygous ([facility]) Fibromyalgia, primary GERD (gastroesophageal reflux disease) Without esophagitis Hyperlipidemia Hypertension Injury of back Irregular menstruation Leaking of urine Memory loss Menopause Migraine headache Obesity Painful menstruation Pelvic pain Pneumonia Rheumatoid arthritis ([facility]) Seizures ([facility]) 1998 During Septoplasty surgery per chart from [facility]. Sinusitis, chronic Wears partial dentures Past Surgical History: Procedure Laterality Date ADENOIDECTOMY BLADDER SUSPENSION CRANIOTOMY REPAIR ANEURYSM(MCA ANEURYSM CLIPPING) Right 07/05/2022 Performed by Eric Jimenez MD at [facility] CYSTOSCOPY WITH BLADDER IRRIGATION AND [facility] BLADDER SOLUTION N/A 03/19/2023 Performed by Db Whitten MD at [facility] Diagnostic cerebral angiogram N/A 07/06/2022 Performed by Yi Bautista MD at [facility] Diagnostic cerebral angiogram N/A 01/02/2022 Performed by Yi Bautista MD at [facility] EGD with bx N/A 07/26/2016 Performed by Db Acevedo MD at [facility] ESSURE TUBAL LIGATION FOOT SURGERY Right HYSTERECTOMY 2010 LAPAROSCOPIC CHOLECYSTECTOMY N/A 04/09/2019 Performed by Geovany Bain MD at [facility] SEPTOPLASTY W/ TURBINOPLASTY OOPHORECTOMY TONSILLECTOMY [...] total) by mouth in the morning., Disp: ,Rfl: losartan (COZAAR) 50 mg tablet, Take 2 tablets (100 mg total) by mouth nightly., Disp: , Rfl: omega 7-ult-pqo-fish oil (FISH OIL) 300-1,000 mg capsule,delayed release(DR/EC), [...] tablet, Please see instructional sheet given by physiciansoffice., Disp: 2 tablet, Rfl: 0 FLUoxetine (PROzac) 20 mg capsule, Take 1 capsule (20 mg total) by mouth in the morning. (Patient not taking: Reported on 12/05/2023), Disp: 90 capsule, Rfl: 1 sod sulf-pot chloride-mag sulf 1.479-0.188- 0.225 gram tablet, Please see instructional sheet givenby physicians office., Disp: 24 tablet, Rfl: 0 [...] evacuation preparation. Patient verbalizes understanding and wishes toproceed. Evaluation included: Preparing to see the patient (e.g., review of tests) Obtaining and/or reviewing separately obtained history Performing a medically appropriate examination and/or evaluation Counseling and educating the patient/family/caregiver Referring and communicating with other health director of primary care Encounter for screening colonoscopy [Z12.11] SHANNA SINGH [facility] [place] This note was created with the assistance of a speech recognition program. While intending to generate a timely document that accurately reflects the content of the visit, no guarantee can be provided that every grammatical or spelling mistake has been or will be identified or corrected. Thank you for your understanding. SHANNA Singh 12/05/23 1000 documented in this [facility]10-15-2024 Miscellaneous Notes* Telephone Encounter - Ruthy Stokes - 11/20/2023 10:00 AM EDT Patient called to cancel her colonoscopy appointment for today with Yu Guerrier NP, as she herchild ran away in the middle of the night and she is [facility]. She will call us back later to reschedule her appointment. documented in this [facility]10-15-2024 Telephone encounter Note* Telephone Encounter - Ruthy Stokes - 11/20/2023 10:00 AM EDT Patient called to cancel her colonoscopy appointment for today with Yu Guerrier NP, as she herchild ran away in the middle of the night and she is at the [facility] filling out paperwork. She will call us back later to reschedule her appointment. [facility]09-16-2024 NoteToday states that she is out of elavil and does not have appt with PCP until Nov 09- therefore will prescribed short 3 week script to fillUnMcCullough-Hyde [facility]09-16-2024 NoteF/U with PCP as scheduledUnMcCullough-Hyde Memorial Hospital09-16-2024 NoteLipid abnormalities are stable, continue lipitor 40 mg dailyUnMcCullough-Hyde Memorial Hospital09-16-2024 NoteHypertension is stable and well controlled Continue hydrochlorothiazide, losartan, norvascUniversSelect Medical Special[facility]09-16-2024 NoteCurrently resolvedUnMcCullough-Hyde Memorial Hospital 10-22-2023 NotePt is here for a eight month follow up.[facility]09-16-2024 NotePatient here for 1.5 year follow up hypertension. Still has pain under her right breast, where the bone is . Denies SOB and palpitations. Says she hasn't been lightheaded/dizzy since her aneurysm surgery in June 2022. Review of Systems Musculoskeletal: Positive for arthritis, back pain and joint pain. Neurological: Positive for headaches. All other systems reviewed and are negative.[facility] 10-22-2023 NoteUTP CARDIOLOGY PROGRESS NOTE HPI: Araceli Pérez is a 43 [...] but denied syncope. States that Neuro-surg at [facility] is planning surgery for aneurysm. Previous HPI [...] 40 mg by mouth at bedtime. omega 3-vgr-cek-fish oil 300-1,000 mg capsule,delayed release(DR/EC) omeprazole (PriLOSEC) [...] -- 91 91 91 (more content not included)...[facility]04-26-2024 History of Present illness Narrative* Osiris Lacy RN - 06/01/2023 10:56 AM EDT Patient is here for follow up with Dr. Rodriguez. Orders received to follow up prn. Copy of recent labs provided and pcp info for Dr. Banuelos. documented in this encounterCleveland Clinic [facility] Hospital04-26-2024 History of Present illness Narrative* Irwin Rodriguez MD - 06/01/2023 10:30 AM EDT [facility] 06/01/23 Araceli Pérez is a 42 [...] She has been followed by Dr. Boyd ([facility]), due to relocation she came to my clinic to establish care. The patient is allergic to nickel. She has been seen by Dr. Bautista with stroke neurology, who was planning for an aneurysm embolization although his devices contained nickel thus she was referred to Dr. Jimenez. Patient hasa severe nickel allergy per her report. She states after having a nickel IUD, she had a severe reaction requiring 20 surgeries afterward. She reports mom's maternal cousin and her maternal cousin's mom of an aneurysm rupture. She denies being told she has a connective tissue disease and statesshe was sent for a genetic test although the test was lost. She reports she is currently on patchesfor smoking cessation. She had aneurysm surgery by [...] pain Acid reflux Arthritis Asthma Bleeding disorder ([facility]) Factor V(clotting disorder) per patient Cerebral aneurysm Clotting disorder ([facility]) Dental disease Upper dentures, lower partial Depression Dysphagia Endometriosis Factor 5 Leiden mutation, heterozygous ([facility]) Fibromyalgia, primary GERD (gastroesophageal reflux disease) Without esophagitis Hyperlipidemia Hypertension Injury of back Irregular menstruation Leaking of urine Memory loss Menopause Migraine headache Obesity Painful menstruation Pelvic pain Pneumonia Rheumatoid arthritis ([facility]) Seizures ([facility]) 1998 During Septoplasty surgery per chart from [facility]. Sinusitis, chronic Wears partial dentures Past Surgical History: Procedure Laterality Date ADENOIDECTOMY BLADDER SUSPENSION CRANIOTOMY REPAIR ANEURYSM(MCA ANEURYSM CLIPPING) Right 07/05/2022 Performed by Eric Jimenez MD at [facility] CYSTOSCOPY WITH BLADDER IRRIGATION AND [facility] BLADDER SOLUTION N/A 03/19/2023 Performed by Db Whitten MD at [facility] Diagnostic cerebral angiogram N/A 07/06/2022 Performed by Yi Bautista MD at [facility] CARD[facility] CATH [facility] Diagnostic cerebral angiogram N/A 01/02/2022 Performed by Yi Bautista MD at [facility] EGD with bx N/A 07/26/2016 Performed by Db Acevedo MD at [facility] ESSURE TUBAL LIGATION FOOT SURGERY Right HYSTERECTOMY 2010 LAPAROSCOPIC CHOLECYSTECTOMY N/A 04/09/2019 Performed by Geovany Bain MD at [facility] NASAL SEPTOPLASTY W/ TURBINOPLASTY OOPHORECTOMY TONSILLECTOMY [...] 0 Dose: 1 spray Signed by: LYN MaguirePROGRAM OFFICER 4 mg, alternating nares, As needed Commonly known as: NARCAN omega 9-jvn-kvm-fish oil 300-1,000 mg capsule,delayed release(DR/EC) Refills: 0 [...] were clear to auscultation. There was no dullnessto percussion. Cardiac: Regular rate and rhythm, S1 [...] with heterozygous factor 5 leiden mutation is 10%or less. The patient liver have any personal [...] to ensure the accuracy of this automated psychiatric secretary, some errors in psychiatric secretary may have occurred. CC: Patient Care Team: [...] MD: Shad Elliott APRN-CNP documented in this encounterMercy Health Urbana HospitalJust Gotta Make It Advertising [facility] [id number] Evaluation + Plan note* Assessment & Plan Note - Db Whitten MD - 04/25/2023 12:48 PM EDT Associated Problem(s): Mixed stress and urge urinary incontinence No constipation no dry mouth. Will start her on 5 mg VESIcare. Refer her to Dr. Engle. Certainly made need some urodynamic study as well. Deferred to his evaluation and management. [facility] HospitalNerd [id number] Miscellaneous Notes* Assessment & Plan Note - Db Whitten MD - 04/25/2023 12:48 PM EDTAssociated Problem(s): Mixed stress and urge urinary incontinence No constipation no dry mouth. Will start her on 5 mg VESIcare. Refer her to Dr. Engle. Certainly made need some urodynamic study as well. Deferred to his evaluation and management. documented in this encounterCleveland [facility] Hospital03-20-[facility]24 History of Present illness Narrative* Db Whitten MD - 04/25/2023 12:45 PM EDT Images from the original note were not included. [address] [place] [address] A [facility] [id number] Patient: Araceli Pérez Date of : 1980 [...] past medical history, past social history, past surgicalhistory and problem list. Past Medical History: Diagnosis Date Abdominal pain Acid reflux Arthritis Asthma Bleeding disorder (CMS-HCC) Factor V(clotting disorder) per patient Cerebral aneurysm Clotting disorder ([facility]) Dental disease Upper dentures, lower partial Depression Dysphagia Endometriosis Factor 5 Leiden mutation, heterozygous ([facility]) Fibromyalgia, primary GERD (gastroesophageal reflux disease) Without esophagitis Hyperlipidemia Hypertension Injury of back Irregular menstruation Leaking of urine Memory loss Menopause Migraine headache Obesity Painful menstruation Pelvic pain Pneumonia Rheumatoid arthritis ([facility]) Seizures ([facility]) 1998 During Septoplasty surgery per chart from [facility]. Sinusitis, chronic Wears partial dentures Past Surgical History: Procedure Laterality Date ADENOIDECTOMY BLADDER SUSPENSION CRANIOTOMY REPAIR ANEURYSM(MCA ANEURYSM CLIPPING) Right 07/05/2022 Performed by Eric Jimenez MD at [facility] CYSTOSCOPY WITH BLADDER IRRIGATION AND [facility] BLADDER SOLUTION N/A 03/19/2023 Performed by Db Whitten MD at [facility] Diagnostic cerebral angiogram N/A 07/06/2022 Performed by Yi Bautista MD at [facility] Diagnostic cerebral angiogram N/A 01/02/2022 Performed by Yi Bautista MD at [facility]ATH [facility] EGD with bx N/A 07/26/2016 Performed by Db Acevedo MD at [facility] ESSURE TUBAL LIGATION FOOT SURGERY Right HYSTERECTOMY 2011 LAPAROSCOPIC CHOLECYSTECTOMY N/A 04/09/2019 Performed by Geovany Bain MD at [facility] NASAL SEPTOPLASTY W/ TURBINOPLASTY OOPHORECTOMY [...] spray Administer 1 spray (4 mg total) intoalternating nostrils as needed for opioid reversal. 1 each 0 omega 7-ywe-bmq-fish oil (FISH OIL) 300-1,000 mg capsule,delayed release(DR/EC) [...] urethral hypermobility. She may have a component ofintrinsic sphincter deficiency. Certainly may need urodynamics I felt like her bladder capacity wassomewhat small. Will empirically treated with an anticholinergic see how she does. I will refer herto [address] Engle. She [...] day. Plan: Renal bladder ultrasound. Cystoscopy urodynamics [facility] bladder solution. Current Assessment & Plan No [...] you for your understanding. documented in this encounterCleveland Clinic Union Hospital02-12-2024 Miscellaneous Notes* Telephone Encounter - Db Whitten MD - 03/19/2023 10:33 AM EST Return the office about 1 month. Please cancel the patient's appointment today for 3:45. documented in this encounterCopley HospitalUltracell02-12-2024 Telephone encounter Note* Telephone Encounter - Db Whitten MD - 03/19/2023 10:33 AM EST Return the office about 1 month. Please cancel the patient's appointment today for 3:45. [facility] Work Phone: [phone] Nurse Note* Perioperative Nursing Note - Jayleen Lambert RN - 03/16/2023 10:59 AM EST Preoperative Education Checklist- General Surgery date: 03/19/23 Surgery time: 930a Arrival time: 830a 1. Bring a photo ID and your insurance card with you the day of surgery. You will check in at the main lobby of the [facility]- registration desk is straight ahead as soon as you walk in. Tell them you are here for surgery. 2. If you have a Living Will/Durable Power of Batch Freezer for Health Care that is not on [...] after you have bathed. 5. NO nail mauritian/acrylic on at least one finger. If you are having a hand, wrist or foot surgery then all nail mauritian and artificial/acrylic nails must be removed from [...] least 8 hours and marijuana for 24 hoursprior to arrival for your surgery. 16. If [...] please call the Preadmission Testing office at [phone], Mon.-Fri. 7 a.m.-3 p.m. Leave a voicemail [...] taking 0 days prior to procedure omega 2-lvk-yid-fish oil (FISH OIL) 300-1,000 mg capsule,delayed release(DR/EC) Stop taking 0 days prior to procedure omeprazole (PriLOSEC) 40 mg capsule Take morning of procedure rimegepant (NURTEC ODT) 75 mg tablet,disintegrating Stop taking 0 days prior to procedure tiZANidine (ZANAFLEX) 2 mg tablet Stop taking 0 days prior to procedure [facility] EverPresent [id number] Miscellaneous Notes* Perioperative Nursing Note - Jayleen Lambert RN - 03/16/2023 10:59 AM EST Preoperative Education Checklist- General Surgery date: 03/19/23 Surgery time: 930a Arrival time: 830a 1. Bring a photo ID and your insurance card with you the day of surgery. You will check in at the main lobby of the [facility]- registration desk is straight ahead as soon as you walk in. Tell them you are here for surgery. 2. If you have a Living Will/Durable Power of Batch Freezer for Health Care that is not on [...] after you have bathed. 5. NO nail mauritian/acrylic on at least one finger. If you are having a hand, wrist or foot surgery then all nail mauritian and artificial/acrylic nails must be removed from [...] least 8 hours and marijuana for 24 hoursprior to arrival for your surgery. 16. If [...] please call the Preadmission Testing office at [phone], Mon.-Fri. 7 a.m.-3 p.m. Leave a voicemail [...] taking 0 days prior to procedure omega 3-hmr-uwx-fish oil (FISH OIL) 300-1,000 mg capsule,delayed release(DR/EC) Stop taking 0 days prior to procedure omeprazole (PriLOSEC) 40 mg capsule Take morning of procedure rimegepant (NURTEC ODT) 75 mg tablet,disintegrating Stop taking 0 days prior to procedure tiZANidine (ZANAFLEX) 2 mg tablet Stop taking 0 days prior to procedure documented in this encounterCleveland Clinic Union Hospital01-25-2024 Evaluation note* Encounter Date Diagnosis Assessment Notes Treatment Notes Treatment Clinical Notes Feb, Exposure to influenza (ICD-10 - [...] that she needs to stay home from work/school/activiti es until fever free for 24 hours without [...] (suspected) exposure to covid-19 (ICD-10 - Z20.822) [employer] Other 09-21-2023 Evaluation note* Encounter Date Diagnosis Assessment Notes Treatment Notes Treatment Clinical Notes Oct, GERD (gastroesophageal reflux disease) (ICD-10 - K21.9) Patient reports break through and she will in crease omeprazole 40 mg to BID RTO 6 months Oct, Hiatal hernia (ICD-10 - K44.9) Oct, Schatzki's ring (ICD-10 - K22.2) [employer] Other 08-08-2023 [facility] noteSum[facility]12-27-2022 NoteCARDIAC STRESS TEST Requesting Physician: Mariel Andre [...] to be dictated by Radiology team separately.The [facility] [id number] NoteCONSULTATION CONSULTATION DATE: 01/10/2022 HISTORY OF PRESENT [...] is being seen by Dr. Bautista at [place]. The patient is under the care of RAFIA with regards to her migraines. The patient is to have significant workups performed including cardiac. The patient also is to see stock repairer, retina specialist. As such, given the patient's [...] again stress the importance of tobacco cessation.[facility] 12-20-2021 NoteCONSULTATION CONSULTATION DATE: 12/20/2021 CHIEF COMPLAINT: Chronic low back pain, left lower extremity pain. HISTORY OF PRESENT ILLNESS: This is a 41-year-old female who was referred to us by Shad Elliott, nurse practitioner, with [facility]. The patient states she has had [...] The patient is being seen by a lead miner blasting on 02/16/2022, neuropsychiatrist in April of 2022, and she is to [place] [facility] on 01/10/2022. As such, the patient's [...] limited at this point. CC: Shad Elliott, RAMANDEEPKettering HealthEvaluation noteNo assessment information availableOhiohealth Southeastern Medical Center Work Phone: Evaluation noteNo InformationNort [employer] Other Evaluation note* Diagnosis Factor 5 Leiden mutation, heterozygous (CMS-HCC)- Primary documented in this encounter [facility]* Diagnosis Mixed stress and urge urinary incontinence- Primary Mixed incontinence urge and stress (male)(female) documented in this encounter [facility]* Diagnosis Mixed stress and urge urinary incontinence- Primary Mixed incontinence urge and stress (male)(female) Encounter for screening colonoscopy- Primary documented in this encounter [facility] System[facility]* Diagnosis Melanocytic nevus of face, other location- Primary Neoplasm of unspecified behavior of bone, soft tissue, and skin documented in this encounter [facility]* Diagnosis Mixed stress and urge urinary incontinence- Primary Mixed incontinence urge and stress (male)(female) Migraine with aura and without status migrainosus, not intractable- Primary Frequent headaches Bilateral occipital neuralgia History of cerebral aneurysm repair Other postprocedural status documented in this encounter [facility]* Diagnosis Squamous cell carcinoma of skin of scalp and neck documented in this encounter [facility]* Diagnosis Onset Date Resolution Status Admit Date Low back pain at multiple sites acut e August 11, 2024 8:25am Numbness and tingling acute Aug 8:25am [facility] Work Phone: History and physical note Author Siva You [facility] September 12, 2022 1:37pm Note Date/Time September 12, 2022 1:3 7pm [facility] [address] [place] [address] Gastroenterology H&P Signed Patient: Araceli Pérez MR#: [id number] : 1980 Acct:[id number] Age/Sex: 42 / F Adm Date: 3 Loc: Room: Type: [facility] Attending Dr: Siva You MD [...] <Electronically signed by Siva You MD> 09/12/22 [id number] [facility] Work Phone: History general Narrative [...] Surgical History craniotomy Hospitalization History see above [employer] Other Hospital Discharge instructions Additional Instructions DISCHARGE [...] problems. -Follow up with PCP. -Office number [phone].[facility] Work Phone: InstructionsNot on filedocumented in this encounter [facility] SystemInstructionsNot on filedocumented in this encounter [facility] SystemInstructionsNot on filedocumented in this encounter [facility] SystemInstructionsNot on filedocumented in this encounter [facility] SystemInstructionsNot on filedocumented in this encounter [facility] SystemInstructionsNot on filedocumented in this encounter [facility] SystemInstructionsNot on filedocumented in this encounter [facility] SystemReason for referral (narrative)No reason for referral information availableMercy Health Urbana Hospital Work Phone: Summary Purpose Family History Relationship Condition Age at Onset Recorded Date/T angel grandparent Cerebrovascular accident (CVA) Unknown Diabetes mellitus Unknown Heart disease Unknown Malignant neoplasm of stomach Unknown father Diabetes mellitus Unknown Relationship Condition Age at Onset Recorded Date/T angel grandparent Cerebrovascular accident (CVA) Unknown Diabetes mellitus Unknown Heart disease Unknown Malignant neoplasm of stomach Unknown father Diabetes mellitus Unknown grandparent History of stroke Unknown Malignant neoplasm Unknown grandparent Malignant neoplasm Unknown mother Family history of thyroid disease Unknown Advance Directives Advance Directive Response Recorded Date/ Time Advance Directives No December 14, 2021 3:45pm Advance Directive Response Recorded Date/ Time Advance Directives No December 14, 2021 4:45pm Date Activated Date Inactivated Comments 07/05/2022 12:30 PM 07/07/2022 4:57 PM Latest Code Status on File Code Status Date Activated Date Inactivated Comments Full Code 07/05/2022 12:30 PM 07/07/2022 4:57 PM Date Activated Date Inactivated Comments 07/05/2022 12:30 PM 07/07/2022 4:57 PM Chief Complaint and Reason for Visit Chief Complaint r27.0 Chief Complaint EOE, GERD Chief Complaint Admit Date EMG BLE per Tashwalter Hairston PROGRAM OFFICER August 11 8:25am Reason for Visit Admit Date Low back pain at multiple sites August 8:25am Numbness and tingling August 11, 2024 8:2 5am Chief Complaint Admit Date EMG BLE per Tash Hairston PROGRAM OFFICER August 11 8:25am establish September 11, 2024 1:1 6pm Reason for Visit Admit Date Low back pain at multiple sites August 8:25am Numbness and tingling August 11, 2024 8:2 5am Hypertension September 11, 2024 1:1 6pm Additional Source Comments INFORMATION SOURCE (unrecogn ized section and content) DATE CREATED AUTHOR 08/06/2021 [facility] DATE CREATED AUTHOR AUTHOR'S ORGANIZ ATION 06/08/2022 [facility] DATE CREATED AUTHOR AUTHOR'S ORGANIZ ATION 09/18/2022 [facility] DATE CREATED AUTHOR AUTHOR'S ORGANIZ ATION 01/23/2024 [facility] DATE CREATED AUTHOR AUTHOR'S ORGANIZ ATION 05/31/2024 [facility] DATE CREATED AUTHOR AUTHOR'S ORGANIZ ATION 07/08/2024 [facility] DATE CREATED AUTHOR AUTHOR'S ORGANIZ ATION 07/09/2024 [facility] DATE CREATED AUTHOR AUTHOR'S ORGANIZ ATION 08/01/2024 [facility] d[facility] Specialists EPIC Care Teams (unrecognized sec tion and content) Team Status: Inactive Member Role Status Dates Ron Wallace DO Attending Provider Active NON STAFF Primary Care Provider Active Team Status: Active Member Role Status Dates NON STAFF Primary Care Provider Active Team Status: Inactive Member Role Status Dates NON STAFF Primary Care Provider Active Siva You MD Attending Provider Active Wood Finisher Relationship Specialty Start Date End Date Shammo, Shad, STATISTICS MANAGER-PROGRAM OFFICER [address] [place] [address] PCP - General Primary Care 12/06/21 Wood Finisher Relationship Specialty Start Date End Date Shammo, Shad, STATISTICS MANAGER-PROGRAM OFFICER [address] [place] [address] PCP - General Primary Care 12/06/21 Wood Finisher Relationship Specialty Start Date End Date ShamraymundoShad, STATISTICS MANAGER-PROGRAM OFFICER [address] [place] [address] PCP - General Primary Care 12/06/21 Wood Finisher Relationship Specialty Start Date End Date Bhumi Wayne, STATISTICS MANAGER-ROVING INSPECTOR [address] [place] [address] PCP - General Family Medicine 11/12/23 Wood Finisher Relationship Specialty Start Date End Date Bhumi Wayne STATISTICS MANAGER-ROVING INSPECTOR [address] [place] [address] PCP - General Family Medicine 11/12/23 Wood Finisher Relationship Specialty Start Date End Date Bhumi Wayne STATISTICS MANAGER-ROVING INSPECTOR [address] [place] [address] PCP - General Family Medicine 11/12/23 Wood Finisher Relationship Specialty Start Date End Date Bhumi Wayne, STATISTICS MANAGER-ROVING INSPECTOR [address] [place] [address] PCP - General Family Medicine 11/12/23 Wood Finisher Relationship Specialty Start Date End Date Sharmin Poole PA PCP - NOMEli Razo [facility] 08/06/23 Wood Finisher Relationship Specialty Start Date End Date Sharmin Poole PA PCP - [facility] Danni [facility] 08/06/23 Wood Finisher Relationship Specialty Start Date End Date Bhumi Wayne, STATISTICS MANAGER-ROVING INSPECTOR [address] [place] [address] PCP - General Family Medicine 11/12/23 Wood Finisher Relationship Specialty Start Date End Date Bhumi Wayne STATISTICS MANAGER-ROVING INSPECTOR [address] [facility] [place] [address] PCP - General Family Medicine 11/12/23 Wood Finisher Relationship Specialty Start Date End Date Bhumi Wayne STATISTICS MANAGER-ROVING INSPECTOR [address] [facility] [place] [address] PCP - General Family Medicine 11/12/23 Wood Finisher Relationship Specialty Start Date End Date Sharmin Poole PA PCP - NOMEli Razo [facility] 08/06/23 Team Status: Active Member Role Status Dates Tash Hairston NP-C Primary Care Provider Active Team Status: Inactive Member Role Status Dates Leslie Rodriguez DO Attending Provider Active Sta rt: August 11, 2024 End: August 11, 2024 MARYLU [place] Primary Care Provider Active Start: August 11, 2024 End: August 11, 2024 Team Status: Active Member Role Status Dates Nesha Hoang APRN IN STORE MARKETING ASSOCIATE-C Primary Care Provider Active Team Status: Inactive Member Role Status Dates JESSICA Sumner Primary Care Provider Active Start: September 11, 2024 End: September 11, 2024 JESSICA Sumner Attending Provider Act jie Start: September 11, 2024 End: September 11, 2024 Goals (unrecognized section and content) Goals may [...] this encounterNot on filedocumented as of this encounterGoals may be documented in an alternate sectionGoals may be documented in an alternate section REASON FOR VISIT (unrecogniz ed section and content) Reason Comments Follow-up Reason Comments Colon Cancer Screening First colonoscopy Reason Comments Suspicious Skin Lesion Specialty Diagnoses / Procedures Referred By Connie dowling Referred To Contact Dermatology Diagnoses scalp lesion Procedures office visit Marisol Canales MD [address] [place] [address] fax: Chau Williamson MD [address] [address] Phone: tel: fax: Referral ID Status Reason Start Date Expiration Date Visits Re quested Visits Authorized [id number] Closed 05/15/2024 11/11/2024 1 1 Reason Onset Date Comments Question appointment 06/16/2024 Reason Comments New Patient Patient is here toda y as a new patientDx frequent headachesCerebral aneurysm Specialty Diagnoses / Procedures Referred By Connie dowling Referred To Contact Neurology Diagnoses Frequent headaches Marisol Canales MD [address] [place] [address] Phone: tel: fax: Gaurav Henson MD [address] [place] [address] Phone: tel: fax: Referral ID Status Reason Start Date Expiration Date Visits Requested Visits Authorized [id number] Pending Review Specialty Services Required 06/10/2024 06/10/2025 1 1 Reason Comments Mohs Micrographic Surgery FOR RECORDS PERTAINING TO PATIENTS WHO ARE [...] BE BASED ON THE PRIMARY CLINICAL RECORDS. [employer] [facility]. provides no warranty or guarantee of the accuracy or completeness of information in this document.
[2024-09-17 08:35] LABS: Hematocrit 44.9 % (36.0-48.0); Hemoglobin 15.1 g/dL (12.0-16.0); Immature Granulocytes Abs Auto 0.02 10^3/uL (0.00-0.03); Immature Granulocytes Pct Auto 0.2 % (0.0-0.5); Lymphocytes Absolute Auto 2.4 10^3/uL (1.2-3.8); Mean Corpuscular HGB Conc 33.6 g/dL (29.9-35.2); Mean Corpuscular Hemoglobin 29.9 pg (26.7-34.0); Mean Corpuscular Volume 88.9 fL (81.0-99.0); Platelet Count 312 10^3/uL (150-450); Red Blood Count 5.05 10^6/uL (4.20-5.40); White Blood Count 10.9 10^3/uL (4.0-11.0)
[2024-09-17 09:04] LABS: Alanine Aminotransferase 19 U/L (14-59); Albumin Globulin Ratio 0.8; Albumin Level 3.3 g/dL (3.4-5.0); Alkaline Phosphatase 120 U/L (46-116); Anion Gap 12.8; Aspartate Amino Transferase 11 U/L (15-37); Blood Urea Nitrogen 9.0 mg/dL (7.0-18.0); Calcium 8.9 mg/dL (8.5-10.1); Carbon Dioxide 29.2 mmol/L (21.0-32.0); Chloride 105 mmol/L (98-107); Cholesterol 150 mg/dL (<=200); Estimated GFR (African America >60 (>=60 mL/min/1.73m^2); Estimated GFR (Non-African Ame >60 (>=60 mL/min/1.73m^2); Globulin 4.0 g/dL; Glucose 110 mg/dL (74-106); HDL Cholesterol 48 mg/dL (40-60); Potassium 4.0 mmol/L (3.5-5.1); Sodium 143 mmol/L (136-145); Total Protein 7.3 g/dL (6.4-8.2); Triglycerides 77 mg/dL (<=150); VLDL CHOLESTEROL 15.4 mg/dL
== END 2024-09-17 08:22 | disposition home or self-care (01) ==
LOC: LAB 08:22
PROVIDERS: Visit Provider Nurse Practitioner Family
DX: I10 Essential (primary) hypertension (principal)
CPT/HCPCS: 36415; 80053; 80061; 85025

== ENCOUNTER 2024-10-22 11:29 | Outpatient (OUT) | payer MEDICAID, SELFPAY ==
--- NOTE | 2024-10-22 11:34 | XR_ITS ---
The [address] [address] Patient Name: ARACELI FRANCOIS MRN: [id number] date: 1980 Sex: F Assigned Patient Location: [facility] Current Patient Location: [facility] Accession/Order Number: [id number] Exam Date: 10/22/2024 11:45 Report Date: 10/22/2024 23:55 At the request of: ERICA ASHTON DPSamantha Procedure: XR foot TISHA min 3V XR foot TISHA min 3V 10/22/2024 12:02 PM SIGNS AND SYMPTOMS: Bilateral foot pain, redness and swelling PROTOCOL: Frontal, lateral, and oblique radiographs of the bilateral feet COMPARISON: None FINDINGS: Is joint spaces are preserved. There is no evidence of acute displaced fracture. There is nonspecific diffuse soft tissue swelling with mild plantar surface calcaneal spurring on the right. There is nonspecific soft tissue swelling on the left with mild Achilles surface calcaneal spurring. XR/XR foot TISHA min 3V IMPRESSION: No acute bony injury. There is nonspecific soft tissue swelling bilaterally. Impression dictated by: Efrain Chapman M.D. 10/22/2024 11:55 PM Dictation Location: [place] [address] Electronically authenticated by: [id number] Y Date: 10/22/2024 23:55
--- OUTSIDE RECORDS SUMMARY | 2024-10-22 11:35 | XMS_ITS | CCD ---
Author Organization [facility] CliniSyde Care Team Providers Care Enterprise Services Manager Name Role Phone DO Ron Wallace Attending [...] Attending Unavailable ROOSEVELT FORBES Attending Unavailable Shammo VISUALIZATION DEVELOPER-PROCUREMENT COST COORDINATOR, Shad Primary Care Provider Volodymyr VISUALIZATION DEVELOPER-COLD MILL SUPERVISOR, [place] Primary Care Provider Ngsue, Kadori Attending Unavailable Ngirabakunzi, Kadori Primary Care Unavailable Sharmin Walker Unavailable [phone] Volodymyr VISUALIZATION DEVELOPER-COLD MILL SUPERVISOR, [place] Primary Care Provider VOLODYMYR, BHUMI Referring Unavailable VOLODYMYR, BHUMI Primary Care Unavailable DB ELIZABETH Admitting Unavailable DB ELIZABETH Attending Unavailable VOLODYMYR, BHUMI Primary Care Unavailable PARKER, MARISOL Referring Unavailable VOLODYMYR, BHUMI Primary Care Unavailable PARKER, MARISOL Referring Unavailable VOLODYMYR, BHUMI Primary Care Unavailable PARKER, MARISOL Referring Unavailable VOLODYMYR, BHUMI Primary Care Unavailable PARKER, MARISOL Referring Unavailable VOLODYMYR, BHUMI Primary Care Unavailable CHAU WILLIAMSON Attending Unavailable PARKER, MARISOL Referring Unavailable AAMIR TREVINO Attending Unavailable Leslie Rodriguez DO Attending Provider [phone] Tash Carrizales Primary Care Provider [phone] Nesha Hoang APRN Primary Care Provider Nesha Hoang APRN Attending Provider Kajal Chowdary APRN Attending Provider YU GUERRIER Attending Unavailable [facility] Referring Unavailable [facility] Primary Care Unavailable [facility] Attending Unavailable MARISOL CANALES Referring Unavailable [facility] Primary Care Unavailable [facility] Attending Unavailable [facility] Referring Unavailable [facility] Primary Care Unavailable Allergies Allergy Classification Reported Allergen(s) Allergy Type Date of Onset Reaction(s) Facility (2 sources) DULoxetine Drug Allergy 2 [facility] Repository (9 sources) Leucine; Translations: [NICKEL] Drug Allergy 9 anaphylaxis [facility] Repository (4 sources) Penicillin Drug Allergy 1 Unknown [facility] Repository (20 sources) DULoxetine; Translations: [duloxetine] Drug Allergy 2 Vomiting [facility] (20 sources) Naproxen; Translations: [naproxen] Drug Allergy 7 Hives [facility] (20 sources) Penicillins; Translations: [Penicillins] Allergy to substance 7 Shortness Of Breath, Rash [facility] (1 source) Unable to Assess Drug allergy (disorder) 2 [facility] Repository (7 sources) penicillAMINE Drug Allergy 4 anaphylaxis [facility] (14 sources) nickel Drug Allergy 9 anaphylaxis [facility] (1 source) Bee pollen; Translations: [BEE POLLEN] Propensity to adverse reactions to drug (disorder) [address] [facility] Repository (4 sources) DULoxetine Drug Allergy 5 [facility] Healthcare (4 sources) nickel sulfate Drug Allergy 5 [facility] Healthcare Medications Current Medications Medication Drug Class(es) [...] Discontinued (Therapy completed) Tylenol prn Acti ve [id number] actuat albuterol 0.09 mg/actuat metered dose [...] Start: 06-10-2024 take 3 tablets by mo [facility] once daily at bedtime amitriptyline (ELAVIL) 10 mg tablet Take 3 tablets (30 mg total) by mouth nightly. at bedtime 06/10/2024 Active Start: 11-29-2022 End: 07-08-2024 amitriptyline (ELAVIL) 50 mg tablet Indications: Fibromyalgia One capsule at 8 PM each night 90 tablet 1 11/29/2022 07/08/2024 Discontinued amitriptyline (E lavil) 25 MG tablet Take by mouth at bedtime Active amLODIPine 10 mg oral tablet (20 sources) Dihydropyridine Calcium Channel Estella Start: 06-29-2023 Amlodipine 10 mg tablet Active MG PO June 29, 2023 12:00am Complies with drug therapy Start: 12-25-2021 take 2 tablets by mo [facility] once daily amLODIPine (NORVASC) 5 mg tablet Indications: hypertension Take 2 tablets (10 mg total) by mouth nightly Indications: high blood pressure. 12/25/2021 Active ARIPiprazole 5 mg oral tablet (6 sources) Atypical Antipsychotic Start: 08-05-2024 take 1 tablet by mouth once daily Aripiprazole 5 mg tablet Active 5 MG PO Daily September 11, 2024 12:00am Complies with drug therapy Start: 07-07-2024 [facility] ARIPiprazole (Abilify) 2 MG tablet Take 2 mg by mouth at bedtime 07/07/2024 Active atorvastatin 40 mg oral tablet (20 sources) HMG-CoA Reductase Inhibitor Start: 06-29-2023 Atorvastatin 40 mg tablet Active MG PO June 29, 2023 12:00am Complies with drug therapy Start: 04-24-2022 take 2 tablets by mo [facility] in the morning atorvastatin (LIPITOR) 20 mg tablet Take 2 tablets (40 mg total) by mouth in the morning. 04/24/2022 Active Start: 04-24-2022 End: 09-11-2024 take 1 tablet by mouth once daily Atorvastatin 20 mg tablet Discontinued 20 MG PO Daily September 12, 2022 12:00am September 11, 2024 1:30pm bisacodyl 5 mg delayed release oral tablet (7 sources) Stimulant Laxative Start: 12-05-2023 bisacodyL ( [...] propionate 0.05 mg/actuat metered dose nasal spray (4 sources) Corticosteroid Start: 06-29-2023 take 1 spray(s) nasal route once daily Fluticasone Propionate 50 mcg/actuation spray,suspension Active 1 SPRAY INTRANASAL Daily 16 June 29, 2023 12:00am administer into each [...] 0 Active hydroCHLOROthiazide 25 mg oral tablet (7 sources) Thiazide Diuretic Start: 10-22-2023 take 1 tablet by mouth once daily hydroCHLOROthiazide (HYDRODIURIL) 25 mg tablet Take 1 tablet (25 mg total) by mouth daily. 10/22/2023 Active lamoTRIgine 25 mg oral tablet (4 sources) Mood Stabilizer, Anti-epileptic Agent Start: 08-05-2024 take 1 tablet by mouth once daily [...] Start: 12-05-2021 take 2 tablets by mo [facility] once daily losartan (COZAAR) 50 mg [...] for opioid reversal. 1 each 07/07/2022 Active ofloxacin 3 mg/ml otic solution (1 source) Quinolone Antimicrobial Start: 09-18-2024 Ofloxa vidya 0.3 % drops Active 10 DROPS EAR-BOTH Daily 5 September 18, 2024 12:00am Complies with drug therapy omega 1-lnr-mdg-fish oil (FISH OIL) 300-1,000 mg capsule,delayed release(DR/EC) (13 sources) Start: 05-22-2022 omega 3-dha-ep a-fish oil (FISH OIL) 300-1,000 mg capsule,delayed release(DR/EC) Take 1 capsule by mouth in the morning. 05/22/2022 Active Start: 05-22-2022 omega 3-dha-ep a-fish oil (FISH OIL) 300-1,000 mg capsule,delayed release(DR/EC) Take 1 capsule by mouth in the morning. 0 05/22/2022 Active Kelso-3 Fatty Acids-Fish Oil (1 source) Start: 09-12-2022 take 1 capsule by mouth once daily Kelso-3 Fatty Acids-Fish Oil Active 1 CAP PO Daily September 12, 2022 12:00am Kelso-3 Fatty Acids-Fish Oil 300-1,000 mg capsule (4 sources) Start: 09-12-2022 take 1 capsule by mouth once daily Kelso-3 Fatty Acids-Fish Oil 300-1,000 mg capsule Active [...] Active rimegepant 75 mg disintegrating oral tablet (6 sources) Start: 07-08-2024 rimegepant (NURTEC ODT) 75 mg disintegrating tablet Indications: Migraine with aura and without status migrainosus, not intractable Dissolve 1 tablet (75 mg total) on tongue as needed (migraine). Maximum of 1 dose per 24 hours 16 tablet 5 07/08/2024 Active rimegepant (NURT EC ODT) 75 mg tablet,disintegrating Dissolve on tongue. 0 Active sertraline 50 mg oral tablet (6 sources) Serotonin Reuptake Inhibitor Start: 09-11-2024 take [...] Active solifenacin succinate 5 mg oral tablet (11 sources) Cholinergic Muscarinic Antagonist Start: 04-25-2023 take 1 tablet by mouth in the morning solifenacin (VESICARE) 5 mg tablet Take 1 tablet (5 mg total) by mouth in the morning. 30 tablet 4 04/25/2023 Active tiZANidine 2 mg oral tablet (13 sources) Central alpha-2 Adrenergic Agonist Start: 11-29-2022 tiZANidine (ZANAFLEX) 2 mg tablet Indications: Fibromyalgia One tab at 8:00 p.m.each night 90 tablet 1 11/29/2022 Active Completed/Discontinued Medications Medication Drug Class(es) Dates Sig (Normalized) Sig (Original) benzonatate 200 mg oral capsule (4 sources) Non-narcotic Antitussive Start: 4 End: take 1 capsule by mouth three times daily as needed for cough Benzonatate 200 mg capsule Discontinued 200 MG PO Three times daily as needed for cough 10 June 29, 2023 12:00am September 11, 2024 1:30pm methylPREDNISolone 4 mg oral tablet (5 sources) Corticosteroid Start: 4 End: 5 take 1 tablet by mouth once Methylprednisolone (Medrol (Nabeel)) 4 mg tablets,dose pack Discontinued 0 PO per package directions June 29, 2023 12:00am September 11, 2024 1:30pm PO PER PKG DIR Start: 03-09-2023 methylPREDNISo lone 4 MG as directed Orally for 6 Mar, Active Problems Active Problems Problem Classification Problem Date Documented Da te Episodic/Chronic Abdominal hernia (1 source) Diaphragmatic hernia without obstruction or gangrene Episodic Administrative/social admission (4 sources) Encounter for disability determination; Translations: [ENCOUTER DISABILITY DETERMINATION] Onset: 3 Episodic Anxiety disorders (5 sources) Mixed anxiety and depressive disorder; Translations: [Other specified anxiety disorders] 09-14-2024 Chronic Coagulation and hemorrhagic disorders (20 sources) Activated protein C resistance; Translations: [Heterozygous Factor V Leiden mutation] Onset: 7 Chronic Diabetes mellitus without complication (1 source) Impaired fasting glycemia; Translations: [Impaired fasting glucose] 10-08-2024 Episodic Disorders of lipid metabolism (10 sources) Hyperlipidemia, unspecified; Translations: [Mixed hyperlipidemia] Onset: 3 Chronic Endometriosis (17 sources) Endometriosis (clinical); Translations: [Endometriosis, unspecified] Onset: 7 06-08-2016 Chronic Esophageal disorders (20 sources) Gastroesophageal reflux disease; Translations: [Gastro-esophageal reflux disease without esophagitis] Onset: 7 Chronic Essential hypertension (9 sources) Essential (primary) hypertension; Translations: [Hypertensive disorder] Onset: 2 Chronic Comment on above: Problem List clean-u p per request of Phys. EHR Cmte Genitourinary symptoms and ill-defined conditions (20 sources) Mixed urinary incontinence; Translations: [Mixed incontinence] Onset: 3 04-25-2023 Chronic Gout and other crystal arthropathies (2 sources) Gout; Translations: [Gout, unspecified] 09-18-2024 Chronic Headache; including migraine (20 sources) Migraine; Translations: [Migraine, unspecified, not intractable, [...] 06-02-2024 Episodic Other and ill-defined cerebrovascular disease (20 sources) Intracranial aneurysm; Translations: [Cerebral aneurysm, nonruptured] Onset: 2 07-05-2022 Chronic Other and unspecified benign neoplasm (2 sources) Melanocytic nevi of other parts of face; Translations: [Benign neoplasm of skin of other and unspecified parts of face] 06-02-2024 Episodic Other connective tissue disease (20 sources) Fibromyalgia; Translations: [Fibromyalgia] Onset: 7 06-08-2016 Episodic Other ear and sense organ disorders (2 sources) Otitis externa; Translations: [Unspecified otitis externa, unspecified ear] 09-18-2024 Chronic Other gastrointestinal disorders (1 source) Dysphagia, unspecified; Translations: [Dysphagia, unspecified] Onset: 3 Episodic Other nervous system disorders (1 source) Chronic pain syndrome; Translations: [CHRONIC PAIN SYNDROME] Onset: 3 Chronic Other nervous system disorders (1 source) Other chronic pain; Translations: [OTHER CHRONIC PAIN] Onset: 2 Chronic Other nervous system disorders (10 sources) Numbness and tingling sensation of skin; [...] Onset: 2 Chronic Other upper respiratory disease (4 sources) Allergic rhinitis; Translations: [Allergic rhinitis, unspecified] 06-29-2023 Chronic Other upper respiratory infections (4 sources) Sinusitis; Translations: [Chronic sinusitis, unspecified] 06-29-2023 Chronic Other upper respiratory infections (10 sources) Acute pharyngitis, unspecified; Translations: [Viral upper respiratory tract infection] Onset: 3 Episodic Residual codes; unclassified (2 sources) History of surgery for cerebral aneurysm; Translations: [Other specified postprocedural states] 07-08-2024 Episodic Substance-related disorders (1 source) Nicotine [...] PAIN] Onset: 12-10-2021 Episodic Biliary tract disease (17 sources) Cholelithiasis without obstruction; Translations: [Calculus of gallbladder without cholecystitis without obstruction] Onset: 04-07-2019 04-07-2019 Episodic Epilepsy; convulsions (17 sources) Seizure; Translations: [Unspecified convulsions] Onset: 06-08-2016 06-08-2016 Episodic Intestinal infection (1 source) Viral intestinal infection, unspecified; Translations: [VIRAL INTESTINAL INFECTION UNSPEC] Onset: 08-01-2021 Episodic Mood disorders (13 sources) Mood disorders Onset: 07-05-2022 07-05-2022 Nausea and vomiting (3 sources) Nausea with vomiting, unspecified; Translations: [NAUSEA WITH VOMITING UNSPECIFIED] Onset: 07-28-2021 Episodic Nonspecific chest pain (7 sources) Other chest pain; Translations: [OTHER CHEST PAIN] Onset: 12-06-2021 Episodic Other and unspecified benign neoplasm (1 source) Polyp of colon; Translations: [Polyp of colon] Onset: 12-31-2023 Episodic Other circulatory disease (1 source) Personal history of other diseases of the circulatory system; Translations: [Personal history of other diseases of the circulatory system] Onset: 07-08-2024 Episodic Other connective tissue disease (5 sources) Fibromyalgia; Translations: [FIBROMYALGIA] Onset: 06-08-2016 Episodic Other connective tissue disease (3 sources) Pain in left hand; Translations: [PAIN IN LEFT HAND] Onset: 09-23-2021 Episodic Other gastrointestinal disorders (17 sources) Dysphagia; Translations: [Dysphagia, unspecified] Onset: 06-08-2016 [...] disorder] Onset: 11-03-2021 Episodic Residual codes; unclassified (17 sources) Family history of stroke due to aneurysm; Translations: [Family history of stroke] Onset: 03-16-2022 03-16-2022 Episodic Residual codes; unclassified (1 source) Other specified postprocedural states; Translations: [Other specified postprocedural states] Onset: 07-08-2024 Episodic Spondylosis; intervertebral disc disorders; other back problems (12 sources) Cervico-occipital neuralgia; Translations: [Occipital neuralgia] Onset: 07-08-2024 07-08-2024 Episodic Unclassified (1 source) LOW BACK PAIN, UNSPECIFIED; Translations: [LOW BACK PAIN, UNSPECIFIED] Onset: 01-10-2022 Unclassified (1 source) Contact with and (suspected) exposure to covid-19 Z20.822 Results Test Name Value Interpretation Reference Range Facility COVID CepheidOrdered By: Marilu Chowdary on 09-18-2024 SARS-CoV-2 (COVID-19) RNA SARAH+probe Ql (Unsp spec) Negative [facility] No Panel InformationOrdered By: Kajal Chowdary on 09-18-2024 POC Influenza A (PCR) Negative [facility] POC Influenza B (PCR) Negative [facility] Quick Strep (POC) [facility] No Panel Informationon 07-31 Consent obtained: written (The rationale for Mohs as well as the risks, benefits, and alternatives. The risks of infection, scarring, bleeding, prolonged wound healing, incomplete removal, allergy to anesthesia or meds, nerve injury, and recurrence were addressed.) [place] Protocol: Procedure explained and questions answered to [...] sodium bicarbonate Procedure Details: Biopsy accession number: [id number] Biopsy lab: [facility] Date of biopsy: 06/02/2024 Frozen section biopsy [...] given on the day of surgery?: No [facility] CT BRAIN WO CONTon CT BRAIN WO [...] Hogue MD on 07/07/2024 7:20 AM Normal [facility] CT CTA HEADon 07-07-2024 CT CTA [...] Destin Gomes MD on 07/07/2024 3:17 PM [facility] No Panel Informationon 06-02 Type of [...] taken Amount of lidocaine used: 1.0 cc [employer] Type of biopsy: tangential Informed consent: discussed [...] taken Amount of lidocaine used: 1.0 cc [employer] Type of biopsy: tangential Informed consent: discussed [...] taken Amount of lidocaine used: 1.0 cc [facility] Healthcare Office Visiton 01-21-2024 Follow-up visit [id number] Jt Pérez Lakhwinder 1980 F Date Provider Department Center 01/21/2024 ROOSEVELT SABILLON [facility] Family History Problem Relation Age of Onset Heart attack Father Heart attack Paternal Grandfather Stroke Paternal Grandfather Family Status - Relation Status Age at Father Paternal Grandfather Level of Service:25179 [place] OFFICE/OUTPATIENT ESTABLISHED MOD [facility] 30 MIN Normal [facility] Surgical Pathologyon 024 Surgical Pathology Normal [facility] Comment on above: Result Comment: [facility] [address] [place] [address] Surgical Pathology Consultation Patient Name:ARACELI PÉREZ:1980 (Age: 43)Gender:FTaken:4Reported:4Physician(s):Nathaniel Elizabeth D.O. ([phone])Copy To: Rec. #:[id number]: #[id number] Final Pathologic Diagnosis Cecal colon polyp; polypectomy: Tubular adenoma (1 fragment). Unremarkable colonic mucosa (2 fragments). Report Electronically Signed Out wa/01/09/2024Rubio Burgess MD Interpretation performed at [facility], [address], [place] [address], License number: [id number]. Clinical History Screening. 1. cold snared a polyp in the cecum. Gross Description Received in formalin labeled PRISCILA, polyp in cecum are 18 christine delicate to friable soft tissue bits, 0.1-0.4 cm next with vegetative material. The specimens are filtered and submitted in single cassette. (1,ns,[id number], m8) TB tgb/01/01/2024NSK Specimen(s) Received Cecal colon polyp Fee Codes(s): 1; 95371 36on 11-05-2023 36 Concerning cholester ol levels ---- Message ----- From: Lashaun Andre NP Sent: 10/30/2023 11:21 AM EDT To: Kayla Crouch MA Subject: RE: Scan So let her know her cholesterol levels are very good, much better than last year with lipitor Normal [facility] Telephoneon 11-05-2023 Telephone [id number] Jt Pérez 1980 F Date Provider Department Center 11/05/2023 24998-YUDMNKIDALESSANDRA [place] Family History Problem Relation Age of Onset Heart attack Father Heart attack Paternal Grandfather Stroke Paternal Grandfather Family Status - Relation Status Age at Father Paternal Grandfather Normal [facility] 37on 10-22-2023 35 Start taking hydrochlorothiazide daily in the morning for blood pressure Please have blood drawn next week to check kidney function and electrolytes and cholesterol level- so you must be fasting for labs Normal [facility] Office Visiton 10-22-2023 Follow-up visit [id number] Jt Pérez 1980 F Date Provider Department Center 10/22/2023 120-LASHAUN ANDRE Family History Problem Relation Age of Onset Heart attack Father Heart attack Paternal Grandfather Stroke Paternal Grandfather Family Status - Relation Status Age at Father Paternal Grandfather Level of Service:96331 [place] OFFICE/OUTPATIENT ESTABLISHED LOW MDM 20 MIN Normal [facility] COVID + FLU Quick Testingon 03-01-2023 SARS-CoV-2 (COVID-19) RNA SARAH+probe Ql (Unsp spec) Negative [facility] Other COVID + FLU Quick Testing Negative [facility] Other [facility] 09-12-2022 L -- ---- Specimen: [id number] Received: 09/12/22 Status: KASSIDY Martinez Num: [id number] Spec Type: Surgical Subm Dr: Siva You MD Tissues: A Esophagus Biopsy (ESOPHAGUS BX) Procedures: [place] ESQUEDA/Eve L4 ---- Age/ Patient Sex Location Account Attending Physician ---- Araceli Pérez 42/F [id number] Siva You MD ---- SPEC NUM: [id number] RECD: 09/12/22 STATUS: KASSIDY MARTINEZ NUM: [id number] SHANNON: 09/12/22- [facility] DR: Siva You MD ENTERED: 09/12/[address] [facility] [address]: SPEC TYPE: Surgical DEPT: S ORDERED: [...] reviewed. The microscopic examination confirms the diagnosis. ---- Specimen: [id number] Received: 09/12/22 Status: KASSIDY Martinez Num: [id number] Spec Type: Surgical Subm Dr: Siva You MD Tissues: A Esophagus Biopsy (ESOPHAGUS BX) Procedures: HE/2, Gross/Micro L4 ---- Patient: Araceli Pérez [id number] (Continued) ---- Specimen: [id number] Received: 09/12/22 (Continued) Signed (signature on file) Rory Jade MD 09/14/22 1155 ---- Specimen: [id number] Received: 09/12/22 Status: KASSIDY Martinez Num: [id number] Spec Type: Surgical Subm Dr: Siva You MD Tissues: A Esophagus Biopsy (ESOPHAGUS BX) Procedures: [place] ESQUEDA/Eve L4 ---- Patient: Araceli Pérez [id number] (Continued) ---- Specimen: [id number] Received: 09/12/22 (Continued) CPT Codes 93761 ---- ---- Specimen: [id number] Received: 09/12/22 Status: KASSIDY Leslee Num: [id number] Spec Type: Surgical Subm Dr: Siva You MD Tissues: A Esophagus Biopsy (ESOPHAGUS BX) Procedures: BELG[place] Nena Hamilton/Eve L4 ---- Patient: Araceli Pérez [id number] (Continued) ---- Signed (signature on file) Rory Jade MD 09/14/22 1155 Normal [facility] LIPID PROFILEon 04-21-2022 CHOL-HDL RATIO NORM SEE BELOW Normal [facility] Comment on above: Result Comment: 3.3 - 4.4 LOW RISK 4.4 - 7.1 AVERAGE RISK 7.1 - 11.0 MODERATE RISK >11.0 HIGH RISK Performed By: #### L IPID, CMP #### [facility] [address] [address] [address] Edil Gayle Cholesterol [Mass/Vol] 247 mg/dL Critically high <=200 [facility] Comment on above: Performed By: #### L IPID, CMP #### [facility] [address] [address] [address] Edil Gayle Cholesterol in HDL [Mass/Vol] 46 mg/dL Normal 40-60 [facility] Comment on above: Performed By: #### L IPID, CMP #### [facility] [address] [address] [address] Edil Gayle Cholesterol in LDL [Mass/Vol] 180.6 mg/dL Normal [facility] Comment on above: Performed By: #### L IPID, CMP #### [facility] [address] [address] [address] Edil Gayle Cholesterol.total/Cho lesterol in HDL [Mass ratio] 5.4 {ratio} Normal [facility] Comment on above: Performed By: #### L IPID, CMP #### [facility] [address] [address] [address] Edil Gayle HDL NORMAL > or = 60 mg/dl - LO W CARDIOVASCULAR RISK <40 mg/dl - HIGH CARDIOVASCULAR RISK Normal [facility] Comment on above: Performed By: #### L IPID, CMP #### [facility] [address] [place], [place] [id number] Dr. Edil Gayle LDL CALC NORMAL SEE BELOW Normal [facility] Comment on above: Result Comment: <100 mg/dl OPTIMAL 100 - 129 mg/dl NEAR OR ABOVE OPTIMAL 130 - 159 mg/dl BORDERLINE HIGH 160 - 189 mg/dl HIGH >190 mg/dl VERY HIGH Performed By: #### L IPID, CMP #### [facility] [address] [address] [address] Edil Gayle Triglyceride [Mass/Vol] 102 mg/dL Normal <=150 [facility] Comment on above: Performed By: #### L IPID, CMP #### [facility] [address] [address] [address] Edil Gayle VLDL CALC 20.4 mg/dL Normal [facility] Comment on above: Performed By: #### L IPID, CMP #### [facility] [address] [place] [address] Dr. Edil Gayle PROF 14(COMP METB)on 023 Albumin [Mass/Vol] 3.4 g/dL Normal 3.4-5.0 [facility] Comment on above: Performed By: #### L IPID, CMP #### [facility] [address] [place] [address] Dr. Edil Gayle Albumin/Globulin [Mass ratio] 0.9 {ratio} Normal [facility] Comment on above: Performed By: #### L IPID, CMP #### [facility] [address] [place] [address] Dr. Edil Gayle ALP [Catalytic activity/Vol] 117 U/L Critically high 46-116 [facility] Comment on above: Performed By: #### L IPID, CMP #### [facility] [address] [place] [address] Dr. Edil Gayle ALT [Catalytic activity/Vol] 25 U/L Normal 14-59 [facility] Comment on above: Performed By: #### L IPID, CMP #### [facility] [address] [place] [address] Dr. Edil Gayle Anion gap [Moles/Vol] 11.5 mmol/L Normal [facility] Comment on above: Performed By: #### L IPID, CMP #### [facility] [address] [place] [address] Dr. Edil Gayle AST [Catalytic activity/Vol] 16 U/L Normal 15-37 [facility] Comment on above: Performed By: #### L IPID, CMP #### [facility] [address] [address] [address] Edil Gayle Bilirubin [Mass/Vol] 0.4 mg/dL Normal 0.2-1.0 [facility] Comment on above: Performed By: #### L IPID, CMP #### [facility] [address] [place] [address] Dr. Edil Gayle Calcium [Mass/Vol] 8.9 mg/dL Normal 8.5-10.1 [facility] Comment on above: Performed By: #### L IPID, CMP #### [facility] [address] [place] [address] Dr. Edil Gayle Chloride [Moles/Vol] 106 mmol/L Normal 98-107 [facility] Comment on above: Performed By: #### L IPID, CMP #### [facility] [address] [place] [address] Dr. Edil Gayle CO2 [Moles/Vol] 29.8 mmol/L Normal 21.0-32.0 [place] Comment on above: Performed By: #### L IPID, CMP #### [facility] [address] [place] [address] Dr. Edil Gayle Creatinine [Mass/Vol] 0.58 mg/dL Normal 0.55-1.02 [facility] Comment on above: Performed By: #### L IPID, CMP #### [facility] [address] [place] [address] Dr. Edil Gayle EGFR-AF BOLIVIAN >60 Normal >=60 [facility] Comment on above: Performed By: #### L IPID, CMP #### [facility] [address] [place] [address] Dr. Edil Gayle EGFR-NON AF BOLIVIAN >60 Normal >=60 [facility] Comment on above: Performed By: #### L IPID, CMP #### [facility] [address] [place] [address] Dr. Edil Gayle Globulin (S) [Mass/Vol] 3.6 g/dL Normal [facility] Comment on above: Performed By: #### L IPID, CMP #### [facility] [address] [address] [address] Edil Gayle Glucose [Mass/Vol] 103 mg/dL Normal 74-106 [facility] Comment on above: Performed By: #### L IPID, CMP #### [facility] [address] [place] [address] Dr. Edil Gayle Potassium [Moles/Vol] 4.3 mmol/L Normal 3.5-5.1 [facility] Comment on above: Performed By: #### L IPID, CMP #### [facility] [address] [place] [address] Dr. Edil Gayle Protein [Mass/Vol] 7.0 g/dL Normal 6.4-8.2 [facility] Comment on above: Performed By: #### L IPID, CMP #### [facility] [address] [place] [address] Dr. Edil Gayle Sodium [Moles/Vol] 143 mmol/L Normal 136-145 [facility] Comment on above: Performed By: #### L IPID, CMP #### [facility] [address] [place] [address] Dr. Edil Gayle Urea nitrogen [Mass/Vol] 12.0 mg/dL Normal 7.0-18.0 [facility] Comment on above: Performed By: #### L IPID, CMP #### [facility] [address] [place] [address] Dr. Edil Gayle Urea nitrogen/Creatinine [Mass ratio] 20.7 mg/mg Normal [facility] Comment on above: Performed By: #### L IPID, CMP #### [facility] [address] [place] [address] Dr. Edil Gayle CULTURE THROATon 04-03-2022 CULTURE THROAT Culture Observations : NORMAL RESPIRATORY JAYLEEN. Normal [facility] Comment on above: Performed By: #### F T4 #### [facility] [address] [place] [address] Dr. Edil Gayle RESPIRATORY PANEL PLUSon Adenovirus Not detected Normal NOT DETECTED [facility] Comment on above: Performed By: #### F T4 #### [facility] [address] [place] [address] Dr. Edil Monte. Parapertusis Not detected Normal NOT DETECTED [facility] Comment on above: Performed By: #### F T4 #### [facility] [address] [place] [address] Dr. Edil Monte. Pertussis Not detected Normal NOT DETECTED [facility] Comment on above: Performed By: #### F T4 #### [facility] [address] [place] [address] Dr. Edil Gayle Chlamydia Pneumoniae Not detected Normal NOT DETECTED [facility] Comment on above: Performed By: #### F T4 #### [facility] [address] [place] [address] Dr. Edil Gayle Coronavirus 229E Not detected Normal NOT DETECTED [facility] Comment on above: Performed By: #### F T4 #### [facility] [address] [place] [address] Dr. Edil Gayle Coronavirus HKU1 Not detected Normal NOT DETECTED [facility] Comment on above: Performed By: #### F T4 #### [facility] [address] [place] [address] Dr. Edil Gayle Coronavirus NL63 Not detected Normal NOT DETECTED [facility] Comment on above: Performed By: #### F T4 #### [facility] [address] [place] [address] Dr. Edil Gayle Coronavirus OC43 Not detected Normal NOT DETECTED [facility] Comment on above: Performed By: #### F T4 #### [facility] [address] [place] [address] Dr. Edil Gayle Influenza A H1 Not detected Normal NOT DETECTED [facility] Comment on above: Performed By: #### F T4 #### [facility] [address] [place] [address] Dr. Edil Gayle Influenza A H1 2009 Not detected Normal NOT DETECTED [facility] Comment on above: Performed By: #### F T4 #### [facility] [address] [place], [place] [id number] Dr. Edil Gayle Influenza A H3 Not detected Normal NOT DETECTED [facility] Comment on above: Performed By: #### F T4 #### [facility] [address] [place] [address] Dr. Edil Gayle Influenza B Not detected Normal NOT DETECTED [facility] Comment on above: Performed By: #### F T4 #### [facility] [address] [place] [address] Dr. Edil Gayle Metapneumovirus Not detected Normal NOT DETECTED [facility] Comment on above: Performed By: #### F T4 #### [facility] [address] [place] [address] Dr. Edil Gayle Mycoplas. Pneumoniae Not detected Normal NOT DETECTED [facility] Comment on above: Performed By: #### F T4 #### [facility] [address] [place] [address] Dr. Edil Gayle Parainfluenza 1 Not detected Normal NOT DETECTED [facility] Comment on above: Performed By: #### F T4 #### [facility] [address] [place] [address] Dr. Edil Gayle Parainfluenza 2 Not detected Normal NOT DETECTED [facility] Comment on above: Performed By: #### F T4 #### [facility] [address] [place] [address] Dr. Edil Gayle Parainfluenza 3 Not detected Normal NOT DETECTED [facility] Comment on above: Performed By: #### F T4 #### [facility] [address] [place] [address] Dr. Edil Gayle Parainfluenza 4 Not detected Normal NOT DETECTED [facility] Comment on above: Performed By: #### F T4 #### [facility] [address] [place] [address] Dr. Edil Gayle Rhino/Enterovirus Not detected Normal NOT DETECTED [facility] Comment on above: Performed By: #### F T4 #### [facility] [address] [place] [address] Dr. Edil Gayle RP2 Header 1 RESPIRATORY PANEL: VIRUSES Normal [facility] Comment on above: Performed By: #### F T4 #### [facility] [address] [place] [address] Dr. Edil Gayle RP2 Header 2 RESPIRATORY PANEL: BACTERIA Normal [facility] Comment on above: Performed By: #### F T4 #### [facility] [address] [place] [address] Dr. Edil Gayle RSV Not detected Normal NOT DETECTED [facility] Comment on above: Performed By: #### F T4 #### [facility] [address] [place] [address] Dr. Edil Gayle SARS-CoV-2 (COVID-19) RNA SARAH+probe Ql (Unsp spec) Not detected Normal NOT DETECTED [facility] Comment on above: Performed By: #### F T4 #### [facility] [address] [place] [address] Dr. Edil Gayle STREPT SCREENon 04-03-2022 STREP SCREEN A Negative Normal NEGATIVE [facility] Comment on above: Performed By: #### F T4 #### [facility] [address] [place] [address] Dr. Edil Gayle ECHOCARDIO M/2D COMPLETEon 1 04-03-2021 ECHOCARDIO M/2D COMPLETE Patient: ARACELI PÉREZ Exam Date: 01/31/2022 : 1980 Gender:F Ordering : LASHAUN DE LA CRUZS Admission #: [id number] Family : Order #: [id number] CLICK HERE TO VIEW EXAM ECHOCARDIOGRAM REPORT [...] Borges M.D. on 02/07/2022 at 09:43 Normal [facility] NM STRESS/REST MULTIon 01-31 [place] STRESS/REST MULTI Patient: ARACELI PÉREZ Exam Date: 01/31/2022 : 1980 Gender:F Ordering : LASHAUN ANDRE Admission #: [id number] Family : Order #: [id number] CLICK HERE TO VIEW EXAM RADIOLOGY REPORT [...] Ferreira MD on 02/02/2022 at 11:41 Normal [facility] MR head/brain wo/w conon MR head/brain wo/w con [facility] Main [place] [address] [place] [address] MRI Report Signed Patient: Araceli Pérez MR#: [id number] : 1980 Acct:[id number] Age/Sex: 41 / F ADM Date: 12/20/21 Loc: MR Room: Type: [facility] Attending Dr: Ron Wallace DO Copies to: [...] Efrain Chapman M.D.12/21/2021 8:39 AM Dictation Location: [place] [address] Transcribed By: [facility] 12/21/21838 Dictated By: Efrain Chapman II, MD 12/21/21815 Signed By: 12/21/21838 [facility] XR LSPINE W_OBLS AND FLEX_EX Ton [...] by: MARCE FERREIRA Date: 2021-12-21 07:11 Normal [facility] US SINGLE QUAD RT UPPERon US SINGLE [...] by: MARCE FERREIRA Date: 2021-12-11 08:32 Normal [facility] XR CHEST 2 Von 12-06-2021 XR CHEST [...] MARCE FERREIRA Date: 2021-12-06 15:35 Normal [facility] MAMM SCREEN 3D TISHA CADon 11-08-2021 MG MAMM SCREEN 3D TISHA CAD Patient: ARACELI PÉREZ Exam Date: 11/08/2021 : 1980 Gender:F Ordering : SHAD OLIVERC Admission #: [id number] Family : Order #: [id number] CLICK HERE TO VIEW EXAM RADIOLOGY REPORT PROCEDURE: MAMMOGRAM SCREENING 3D BILATERAL CAD COMPARISON: MAMM SCREEN 3D TISHA CAD, 07/19/2020. INDICATIONS: Screening mammography Calculator Name NCI Breast Cancer Risk Assessment Tool 5 Year Breast Cancer Risk 0.50% Lifetime Breast Cancer Risk 6.50% Personal Breast Cancer No Personal Ovarian Cancer No Treatments None Family Cancers None LOCATION: [facility] BREAST COMPOSITION: Scattered areas fibroglandular [...] MD on 11/09/2021 at 07:53 Normal [facility] CBC AUTO DIFFon 11-01-2021 BASO # 0.1 103/ul Normal 0.0-0.1 [facility] Comment on above: Performed By: #### F T4 #### [facility] [address] [address] [address] Edil Gayle Basophils/100 WBC (Bld) 1.2 % Normal 0.2-2.0 [facility] Comment on above: Performed By: #### F T4 #### [facility] [address] [place] [address] Dr. Edil Gayle EO # 0.3 103/ul Normal 0.0-0.7 [facility] Comment on above: Performed By: #### F T4 #### [facility] [address] [place] [address] Dr. Edil Gayle Eosinophils/100 WBC (Bld) 2.7 % Normal 0.9-7.0 [facility] Comment on above: Performed By: #### F T4 #### [facility] [address] [place] [address] Dr. Edil Gayle Erythrocyte distribution width (RBC) [Ratio] 12.8 % Normal 11.0-15.0 [facility] Comment on above: Performed By: #### F T4 #### [facility] [address] [place] [address] Dr. Edil Gayle Hematocrit (Bld) [Volume fraction] 46.5 % Normal 36.0-48.0 [facility] Comment on above: Performed By: #### F T4 #### [facility] [address] [place] [address] Dr. Edil Gayle Hemoglobin (Bld) [Mass/Vol] 15.5 g/dL Normal 12.0-16.0 [facility] Comment on above: Performed By: #### F T4 #### [facility] [address] [place] [address] Dr. Edil Gayle IG # 0.02 10e3/ul Normal 0.00-0.03 [facility] Comment on above: Performed By: #### F T4 #### [facility] [address] [place] [address] Dr. Edil Gayle IG % 0.2 % Normal 0.0-0.5 [facility] Comment on above: Performed By: #### F T4 #### [facility] [address] [place] [address] Dr. Edil Gayle LYMPH # 2.1 103/ul Normal 1.2-3.8 [facility] Comment on above: Performed By: #### F T4 #### [facility] [address] [place] [address] Dr. Edil Gayle Lymphocytes/100 WBC (Bld) 20.4 % Critically low 20.5-60.0 [facility] Comment on above: Performed By: #### F T4 #### [facility] [address] [place] [address] Dr. Edil Gayle MANUAL DIFF REQ NO Normal [facility] Comment on above: Performed By: #### F T4 #### [facility] [address] [place] [address] Dr. Edil Gayle MCH (RBC) [Entitic mass] 30.3 pg Normal 26.7-34.0 [facility] Comment on above: Performed By: #### F T4 #### [facility] [address] [place] [address] Dr. Edil Gayle MCHC (RBC) [Mass/Vol] 33.3 g/dL Normal 29.9-35.2 [facility] Comment on above: Performed By: #### F T4 #### [facility] [address] [place] [address] Dr. Edil Gayle MCV (RBC) [Entitic vol] 90.8 fL Normal 81.0-99.0 [facility] Comment on above: Performed By: #### F T4 #### [facility] [address] [place] [address] Dr. Edil Gayle MONO # 0.5 103/ul Normal 0.3-0.8 [facility] Comment on above: Performed By: #### F T4 #### [facility] [address] [place] [address] Dr. Edil Gayle Monocytes/100 WBC (Bld) 5.2 % Normal 1.7-12.0 [facility] Comment on above: Performed By: #### F T4 #### [facility] [address] [place] [address] Dr. Edil Gayle NEUT # 7.3 103/ul Critically high 1.4-6.5 [facility] Comment on above: Performed By: #### F T4 #### [facility] [address] [place] [address] Dr. Edil Gayle Neutrophils/100 WBC (Bld) 70.3 % Normal 43.0-75.0 [facility] Comment on above: Performed By: #### F T4 #### [facility] [address] [place] [address] Dr. Edil Gayle Platelet mean volume (Bld) [Entitic vol] 8.8 fL Critically low 9.5-13.5 [facility] Comment on above: Performed By: #### F T4 #### [facility] [address] [place] [address] Dr. Edil Gayle PLT 294 103/ul Normal 150-450 [facility] Comment on above: Performed By: #### F T4 #### [facility] [address] [place] [address] Dr. Edil Gayle RBC 5.12 106/ul Normal 4.20-5.40 [facility] Comment on above: Performed By: #### F T4 #### [facility] [address] [place] [address] Dr. Edil Gayle WBC 10.3 103/ul Normal 4.0-11.0 [facility] Comment on above: Performed By: #### F T4 #### [facility] [address] [place] [address] Dr. Edil Gayle FREE T4on 11-01-2021 Free T4 [Mass/Vol] 0.88 ng/dL Normal 0.76-1.46 [facility] Comment on above: Performed By: #### F T4 #### [facility] [address] [place] [address] Dr. Edil Gayle GLYCOHEMOGLOBIN A1Con 2021 ADA RECOMMENDATION SEE BELOW Normal [facility] Comment on above: Result Comment: ADA RECOMMENDED LIMIT 4.0 - 6.0 ADA THERAPEUTIC TARGET < 7.0 ACTION SUGGESTED > 7.0 Performed By: #### A 1C #### [facility] [address] [place] [address] Dr. Edil Gayle Glucose [Mass/Vol] 108 mg/dL Normal [facility] Comment on above: Performed By: #### A 1C #### [facility] [address] [address] [address] Edil Gayle HbA1c (Bld) [Mass fraction] 5.4 % Normal 4.5-6.2 [facility] Comment on above: Performed By: #### A 1C #### [facility] [address] [address] [address] Edil Gayle LIPID PROFILEon 11-01-2021 CHOL-HDL RATIO NORM SEE BELOW Normal [facility] Comment on above: Result Comment: 3.3 - 4.4 LOW RISK 4.4 - 7.1 AVERAGE RISK 7.1 - 11.0 MODERATE RISK >11.0 HIGH RISK Performed By: #### T SH, CMP, LIPID #### [facility] [address] [address] [address] Edil Gayle Cholesterol [Mass/Vol] 246 mg/dL Critically high <=200 [facility] Comment on above: Performed By: #### T SH, CMP, LIPID #### [facility] [address] [address] [address] Edil Gayle Cholesterol in HDL [Mass/Vol] 48 mg/dL Normal 40-60 [facility] Comment on above: Performed By: #### T SH, CMP, LIPID #### [facility] [address] [address] [address] Edil Gayle Cholesterol in LDL [Mass/Vol] 172.6 mg/dL Normal [facility] Comment on above: Performed By: #### T SH, CMP, LIPID #### [facility] [address] [address] [address] Edil Gayle Cholesterol.total/Cho lesterol in HDL [Mass ratio] 5.1 {ratio} Normal [facility] Comment on above: Performed By: #### T SH, CMP, LIPID #### [facility] [address] [address] [address] Edil Gayle HDL NORMAL > or = 60 mg/dl - LO W CARDIOVASCULAR RISK <40 mg/dl - HIGH CARDIOVASCULAR RISK Normal [facility] Comment on above: Performed By: #### T SH, CMP, LIPID #### [facility] [address] [address] [address] Edil Gayle LDL CALC NORMAL SEE BELOW Normal [facility] Comment on above: Result Comment: <100 mg/dl OPTIMAL 100 - 129 mg/dl NEAR OR ABOVE OPTIMAL 130 - 159 mg/dl BORDERLINE HIGH 160 - 189 mg/dl HIGH >190 mg/dl VERY HIGH Performed By: #### T SH, CMP, LIPID #### [facility] [address] [address] [address] Edil Gayle Triglyceride [Mass/Vol] 127 mg/dL Normal <=150 [facility] Comment on above: Performed By: #### T SH CMP, LIPID #### [facility] [address] [address] [address] Edil Gayle VLDL CALC 25.4 mg/dL Normal [facility] Comment on above: Performed By: #### T ANA MARIA CMP, LIPID #### [facility] [address] [address] [address] Edil Galye PROF 14(COMP METB)on 022 Albumin [Mass/Vol] 3.6 g/dL Normal 3.4-5.0 [facility] Comment on above: Performed By: #### T ANA MARIA CMP, LIPID #### [facility] [address] [place] [address] Dr. Edil Gayle Albumin/Globulin [Mass ratio] 1.0 {ratio} Normal [facility] Comment on above: Performed By: #### T ANA MARIA, CMP, LIPID #### [facility] [address] [place] [address] Dr. Edil Gayle ALP [Catalytic activity/Vol] 109 U/L Normal 46-116 [facility] Comment on above: Performed By: #### T SH, CMP, LIPID #### [facility] [address] [place] [address] Dr. Edil Gayle ALT [Catalytic activity/Vol] 21 U/L Normal 14-59 [facility] Comment on above: Performed By: #### T SH, CMP, LIPID #### [facility] [address] [address] [address] Edil Gayle Anion gap [Moles/Vol] 10.9 mmol/L Normal [facility] Comment on above: Performed By: #### T SH, CMP, LIPID #### [facility] [address] [place] [address] Dr. Edil Gayle AST [Catalytic activity/Vol] 15 U/L Normal 15-37 [facility] Comment on above: Performed By: #### T SH, CMP, LIPID #### [facility] [address] [place] [address] Dr. Eidl Gayle Bilirubin [Mass/Vol] 0.8 mg/dL Normal 0.2-1.0 [facility] Comment on above: Performed By: #### T SH, CMP, LIPID #### [facility] [address] [place] [address] Dr. Edil Gayle Calcium [Mass/Vol] 9.3 mg/dL Normal 8.5-10.1 [facility] Comment on above: Performed By: #### T SH, CMP, LIPID #### [facility] [address] [place] [address] Dr. Edil Gayle Chloride [Moles/Vol] 104 mmol/L Normal 98-107 [facility] Comment on above: Performed By: #### T SH, CMP, LIPID #### [facility] [address] [place] [address] Dr. Edil Gayle CO2 [Moles/Vol] 30.6 mmol/L Normal 21.0-32.0 [place] Comment on above: Performed By: #### T SH, CMP, LIPID #### [facility] [address] [place] [address] Dr. Edil Gayle Creatinine [Mass/Vol] 0.77 mg/dL Normal 0.55-1.02 [facility] Comment on above: Performed By: #### T SH, CMP, LIPID #### [facility] [address] [place] [address] Dr. Edil Gayle EGFR-AF BOLIVIAN >60 Normal >=60 [facility] Comment on above: Performed By: #### T SH, CMP, LIPID #### [facility] [address] [address] [address] Edil Gayle EGFR-NON AF BOLIVIAN >60 Normal >=60 [facility] Comment on above: Performed By: #### T SH, CMP, LIPID #### [facility] [address] [address] [address] Edil Gayle Globulin (S) [Mass/Vol] 3.7 g/dL Normal [facility] Comment on above: Performed By: #### T SH, CMP, LIPID #### [facility] [address] [address] [address] Edil Gayle Glucose [Mass/Vol] 106 mg/dL Normal 74-106 [facility] Comment on above: Performed By: #### T SH, CMP, LIPID #### [facility] [address] [place] [address] Dr. Edil Gayle Potassium [Moles/Vol] 4.5 mmol/L Normal 3.5-5.1 [facility] Comment on above: Performed By: #### T SH, CMP, LIPID #### [facility] [address] [place] [address] Dr. Edil Gayle Protein [Mass/Vol] 7.3 g/dL Normal 6.4-8.2 [facility] Comment on above: Performed By: #### T SH, CMP, LIPID #### [facility] [address] [place] [address] Dr. Edil Gayle Sodium [Moles/Vol] 141 mmol/L Normal 136-145 [facility] Comment on above: Performed By: #### T SH, CMP, LIPID #### [facility] [address] [place] [address] Dr. Edil Gayle Urea nitrogen [Mass/Vol] 11.0 mg/dL Normal 7.0-18.0 [facility] Comment on above: Performed By: #### T SH, CMP, LIPID #### [facility] [address] [place] [address] Dr. Edil Gayle Urea nitrogen/Creatinine [Mass ratio] 14.3 mg/mg Normal [facility] Comment on above: Performed By: #### T SH, CMP, LIPID #### [facility] [address] [place] [address] Dr. Edil Gayle TSHon 11-01-2021 TSH 2.620 uIU/mL Normal 0.358-3.740 [facility] Comment on above: Performed By: #### T SH, CMP, LIPID #### [facility] [address] [place] [address] Dr. Edil Gayle CBC AUTO DIFFon 07-28-2021 BASO # 0.1 103/ul Normal 0.0-0.1 [facility] Comment on above: Performed By: #### C BC #### [facility] [address] [place] [address] Dr. Edil Gayle Basophils/100 WBC (Bld) 1.0 % Normal 0.2-2.0 [facility] Comment on above: Performed By: #### C BC #### [facility] [address] [place] [address] Dr. Edil Gayle EO # 0.3 103/ul Normal 0.0-0.7 [facility] Comment on above: Performed By: #### C BC #### [facility] [address] [place] [address] Dr. Edil Gayle Eosinophils/100 WBC (Bld) 2.9 % Normal 0.9-7.0 [facility] Comment on above: Performed By: #### C BC #### [facility] [address] [place] [address] Dr. Edil Gayle Erythrocyte distribution width (RBC) [Ratio] 13.0 % Normal 11.0-15.0 [facility] Comment on above: Performed By: #### C BC #### [facility] [address] [place] [address] Dr. Edil Gayle Hematocrit (Bld) [Volume fraction] 46.3 % Normal 36.0-48.0 [facility] Comment on above: Performed By: #### C BC #### [facility] [address] [place] [address] Dr. Edil Gayle Hemoglobin (Bld) [Mass/Vol] 15.4 g/dL Normal 12.0-16.0 [facility] Comment on above: Performed By: #### C BC #### [facility] [address] [place] [address] Dr. Edil Gayle IG # 0.03 10e3/ul Normal 0.00-0.03 [facility] Comment on above: Performed By: #### C BC #### [facility] [address] [place] [address] Dr. Edil Gayle IG % 0.3 % Normal 0.0-0.5 [facility] Comment on above: Performed By: #### C BC #### [facility] [address] [place] [address] Dr. Edil Gayle LYMPH # 2.4 103/ul Normal 1.2-3.8 [facility] Comment on above: Performed By: #### C BC #### [facility] [address] [place] [address] Dr. Edil Gayle Lymphocytes/100 WBC (Bld) 22.4 % Normal 20.5-60.0 [facility] Comment on above: Performed By: #### C BC #### [facility] [address] [place] [address] Dr. Edil Gayle MANUAL DIFF REQ NO Normal [facility] Comment on above: Performed By: #### C BC #### [facility] [address] [place] [address] Dr. Edil Gayle MCH (RBC) [Entitic mass] 30.9 pg Normal 26.7-34.0 [facility] Comment on above: Performed By: #### C BC #### [facility] [address] [place] [address] Dr. Edil Gayle MCHC (RBC) [Mass/Vol] 33.3 g/dL Normal 29.9-35.2 [facility] Comment on above: Performed By: #### C BC #### [facility] [address] [place] [address] Dr. Edil Gayle MCV (RBC) [Entitic vol] 93.0 fL Normal 81.0-99.0 [facility] Comment on above: Performed By: #### C BC #### [facility] [address] [address] [address] Edil Gayle MONO # 0.7 103/ul Normal 0.3-0.8 [facility] Comment on above: Performed By: #### C BC #### [facility] [address] [address] [address] Edil Gayle Monocytes/100 WBC (Bld) 6.9 % Normal 1.7-12.0 [facility] Comment on above: Performed By: #### C BC #### [facility] [address] [place] [address] Dr. Edil Gayle NEUT # 7.1 103/ul Critically high 1.4-6.5 [facility] Comment on above: Performed By: #### C BC #### [facility] [address] [place] [address] Dr. Edil Gayle Neutrophils/100 WBC (Bld) 66.5 % Normal 43.0-75.0 [facility] Comment on above: Performed By: #### C BC #### [facility] [address] [place] [address] Dr. Edil Gayle Platelet mean volume (Bld) [Entitic vol] 9.4 fL Critically low 9.5-13.5 [facility] Comment on above: Performed By: #### C BC #### [facility] [address] [place] [address] Dr. Edil Gayle PLT 247 103/ul Normal 150-450 [facility] Comment on above: Performed By: #### C BC #### [facility] [address] [place] [address] Dr. Edil Gayle RBC 4.98 106/ul Normal 4.20-5.40 [facility] Comment on above: Performed By: #### C BC #### [facility] [address] [place] [address] Dr. Edil Gayle WBC 10.7 103/ul Normal 4.0-11.0 [facility] Comment on above: Performed By: #### C BC #### [facility] [address] [place] [address] ABD/PELV W CONon [...] Spleen: Unremarkable. Adrenal Glands: Unremarkable. Kidneys: Unremarkable. Gastrointestinal/Perit oneum: No acute abnormality. The appendix is unremarkable. No free air or free fluid. Vascular: Unremarkable. Lymph Nodes: No enlarged lymph nodes by CT size criteria. Pelvic Organs: Prior hysterectomy. Bladder: Unremarkable. Bones: No acute osseous abnormality. Soft tissues: Unremarkable. IMPRESSION: 1. No acute abnormality of the abdomen and pelvis. Electronically authenticated by: MICHELLE HENRY Date: 2021-07-28 11:03 Normal [facility] ER URINE PROFILEon 2 Bilirubin Ql (U) Negative Normal NEGATIVE [place] Comment on above: Performed By: #### E RUR #### [facility] [address] [place] [address] Dr. Edil Gayle Clarity (U) CLEAR Normal CLEAR [facility] Comment on above: Performed By: #### E RUR #### [facility] [address] [place] [address] Dr. Edil Gayle Color (U) YELLOW Normal YELLOW [facility] Comment on above: Performed By: #### E RUR #### [facility] [address] [place] [address] Dr. Edil Gayle ERUAHEric A micrscopic examination will be performed if indicated. Normal [facility] Comment on above: Performed By: #### E RUR #### [facility] [address] [place] [address] Dr. Edil Gayle Glucose Ql (U) Negative Normal NEGATIVE [facility] Comment on above: Performed By: #### E RUR #### [facility] [address] [place] [address] Dr. Edil Gayle Hemoglobin Ql (U) Negative Normal NEGATIVE [facility] Comment on above: Performed By: #### E RUR #### [facility] [address] [place] [address] Dr. Edil Gayle Ketones Ql (U) Negative Normal NEGATIVE [facility] Comment on above: Performed By: #### E RUR #### [facility] [address] [place] [address] Dr. Edil Gayle LEUKOCYTES Negative Normal NEGATIVE [facility] Comment on above: Performed By: #### E RUR #### [facility] [address] [place] [address] Dr. Edil Gayle Nitrite Ql (U) Negative Normal NEGATIVE [facility] Comment on above: Performed By: #### E RUR #### [facility] [address] [place] [address] Dr. Edil Gayle pH (U) 6.0 [pH] Normal 5-9 [facility] Comment on above: Performed By: #### E RUR #### [facility] [address] [place] [address] Dr. Edil Gayle SPEC GRAVITY 1.030 Abnormal 1.005-<=1.02 5 [facility] Comment on above: Performed By: #### E RUR #### [facility] [address] [place] [address] Dr. Edil Gayle UA PROTEIN Negative Normal NEGATIVE/ TRACE [facility] Comment on above: Performed By: #### E RUR #### [facility] [address] [place] [address] Dr. Edil Gayle UR MICRO IND NOT INDICATED Normal [facility] Comment on above: Performed By: #### E RUR #### [facility] [address] [place] [address] Dr. Edil Gayle Urobilinogen Qn (U) 0.2 {Tee'U}/dL Normal 0.2 - 1. 0 [facility] Comment on above: Performed By: #### E RUR #### [facility] [address] [place] [address] Dr. Edil Gayle PROF CHEM 8 (BAS METB)on Anion gap [Moles/Vol] 9.8 mmol/L Normal [facility] Comment on above: Performed By: #### F T4 #### [facility] [address] [place] [address] Dr. Edil Gayle Calcium [Mass/Vol] 8.4 mg/dL Critically low 8.5-10.1 [facility] Comment on above: Performed By: #### F T4 #### [facility] [address] [place] [address] Dr. Edil Gayle Chloride [Moles/Vol] 106 mmol/L Normal 98-107 [facility] Comment on above: Performed By: #### F T4 #### [facility] [address] [place] [address] Dr. Edil Gayle CO2 [Moles/Vol] 29.1 mmol/L Normal 21.0-32.0 [place] Comment on above: Performed By: #### F T4 #### [facility] [address] [place] [address] Dr. Edil Gayle Creatinine [Mass/Vol] 0.78 mg/dL Normal 0.55-1.02 [facility] Comment on above: Performed By: #### F T4 #### [facility] [address] [place] [address] Dr. Edil Gayle EGFR-AF BOLIVIAN >60 Normal >=60 [place] Comment on above: Performed By: #### F T4 #### [facility] [address] [place] [address] Dr. Edil Gayle EGFR-NON AF BOLIVIAN >60 Normal >=60 [facility] Comment on above: Performed By: #### F T4 #### [facility] [address] [place] [address] Dr. Edil Gayle Glucose [Mass/Vol] 89 mg/dL Normal 74-106 [facility] Comment on above: Performed By: #### F T4 #### [facility] [address] [address] [address] Edil Gayle Potassium [Moles/Vol] 3.9 mmol/L Normal 3.5-5.1 [facility] Comment on above: Performed By: #### F T4 #### [facility] [address] [address] [address] Edil Gayle Sodium [Moles/Vol] 141 mmol/L Normal 136-145 [facility] Comment on above: Performed By: #### F T4 #### [facility] [address] [address] [address] Edil Gayle Urea nitrogen [Mass/Vol] 12.0 mg/dL Normal 7.0-18.0 [facility] Comment on above: Performed By: #### F T4 #### [facility] [address] [address] [address] Edil Gayle Urea nitrogen/Creatinine [Mass ratio] 15.4 mg/mg Normal [facility] Comment on above: Performed By: #### F T4 #### [facility] [address] [address] [address] Edil MORATAYAon 11-22-2020 RAFIA PATTERN SPECKLED Normal [facility] Comment on above: Result Comment: The [...] authority. Performed By: #### 1 0196 #### [facility] [address] RAFIA SCREEN 1:80 Abnormal <1:40,1:[address] [facility] Comment on above: Result Comment: Test performed using JOSE C IFA RAFIA Hep-2 Test, a pre-standardized assay designed for the qualitative and semi-quantitative detection of antinuclear antibodies. Performed By: #### 1 0196 #### [facility] [address] C REACTIVE PROTEINon 021 CRP [Mass/Vol] 1.9 mg/L Normal 0.0-7.0 [facility] Comment on above: Performed By: #### 9 9744, [id number], 76761 #### [facility] [address] CBC W/DIFFon 11-22-2020 ABS IMM GRANS 0.0 10*3/uL Normal 0.0-0.2 [facility] Comment on above: Performed By: #### 5 010, 56464 #### [facility] [address] ABS NEUTROPHILS 10.1 10*3/uL High 1.6-7.6 [facility] Comment on above: Performed By: #### 5 010, 52484 #### [facility] [address] Basophils (Bld) [#/Vol] 0.1 10*3/uL Normal 0.0-0.[address] [facility] Comment on above: Performed By: #### 5 010, 21262 #### [facility] [address] [place] [address], [facility] Basophils/100 WBC (Bld) 0.8 % Normal 0.0-1.[address] [facility] Comment on above: Performed By: #### 5 0103, 40069 #### [facility] [address] [place] [address], [facility] Eosinophils (Bld) [#/Vol] 0.2 10*3/uL Normal 0.0-0.[address] [facility] Comment on above: Performed By: #### 5 010, 01037 #### [facility] [address] [place] [address], [facility] Eosinophils/100 WBC (Bld) 1.2 % Normal 0.0-6.[address] [facility] Comment on above: Performed By: #### 5 102, 16712 #### [facility] [address] [place] [address], [facility] Erythrocyte distribution width (RBC) [Ratio] 13.2 % Normal 11.5-15.[address] [facility] Comment on above: Performed By: #### 5 102, 65084 #### [facility] [address] [place] [address], [facility] Hematocrit (Bld) [Volume fraction] 47.8 % High 36.0-45.[address] [facility] Comment on above: Performed By: #### 5 102, 07637 #### [facility] [address] [facility] [place] [address], [facility] Hemoglobin (Bld) [Mass/Vol] 16.1 g/dL High 12.0-15.[address] [facility] Comment on above: Performed By: #### 5 102, 90185 #### [facility] [address] [facility] [place] [address], [facility] IMMATURE GRANS 0.3 % Normal 0.0-1.0 [facility] Comment on above: Performed By: #### 5 102, 93091 #### [facility] [address] [facility] [place] [address], [facility] Lymphocytes (Bld) [#/Vol] 2.3 10*3/uL Normal 1.2-4.[address] [facility] Comment on above: Performed By: #### 5 102, 38859 #### [facility] [address] [place] [address], [facility] Lymphocytes/100 WBC (Bld) 17.1 % Low 20.0-45.[address] [facility] Comment on above: Performed By: #### 5 102, 88695 #### [facility] [address] [place] [address], [facility] MCH (RBC) [Entitic mass] 30.8 pg Normal 27.0-33.[address] [facility] Comment on above: Performed By: #### 102, 40312 #### [facility] [address] [place] [id number], [facility] MCHC (RBC) [Mass/Vol] 33.7 g/dL Normal 32.0-35.[address] [facility] Comment on above: Performed By: #### 102, 81765 #### [facility] [address] [place] [address], [facility] MCV (RBC) [Entitic vol] 91.4 fL Normal 82.0-98.[address] [facility] Comment on above: Performed By: #### 102, 68196 #### [facility] [address] [facility] [place] [address], [facility] Monocytes (Bld) [#/Vol] 0.7 10*3/uL Normal 0.1-1.[address] [facility] Comment on above: Performed By: #### 5 102, 78783 #### [facility] [address] [place] [id number], [facility] MONOS 5.0 % Normal 5.0-12.[address] [facility] Comment on above: Performed By: #### 5 102, 09783 #### [facility] [address] [place] [address], [facility] Neutrophils/100 WBC (Bld) 75.6 % High 40.0-72.[address] [facility] Comment on above: Performed By: #### 102, 31179 #### [facility] [address] [place] [address], [facility] Nucleated RBC/100 WBC (Bld) [Ratio] 0 % Normal 0-[address] [facility] Comment on above: Performed By: #### 5 0103, 10032 #### [facility] [address] PLAT CNT 303 10*3/uL Normal 150-400 [facility] Comment on above: Performed By: #### 5 0103, 07566 #### [facility] [address] RBC (Bld) [#/Vol] 5.23 10*6/uL High 3.80-5.00 [facility] Comment on above: Performed By: #### 5 0103, 66752 #### [facility] [address] WBC (Bld) [#/Vol] 13.31 10*3/uL High 4.00-10.60 [facility] Comment on above: Performed By: #### 5 0103, 65312 #### [facility] [address] CYCLIC CITRULLINATED PEPTIDE [place] [id number] 11-22-2020 CYCLIC CIT PEP 4 Units Normal 0-19 [facility] Comment on above: Result Comment: INTE [...] be monitored and testing repeated. Performed By: [id number] [address] [place] [address] [employer] Tender: Olga Duval MD HAND LEFT 3 VWSon 11-22-2020 HAND LEFT [address] [facility] Department of Radiology [address] [place] [id number] ======== Patient Name: ARACELI PÉREZ : 1980 Sex: F Age: Race: White Pt. Location: [facility] Patient Status: D Ordered Date: 11/22/2020 10:50:00 AM Completed Date: 11/22/2020 10:54 AM Requesting Provider: DANYA ROTHMAN Attending Provider: DANYA ROTHMAN Report Copy To: Signs & Symptoms: M25.50 Pain in unspecified joint I10 History: [place] Comments: Evaluate Exam: HAND LEFT 3 VWS ======== HAND LEFT 3 S 11/22/2020 10:54 AM [...] osteoarthritis. Electronically signed: Neftali Ralph. Transcribed by: [email or web address], User Resident: Electronically Signed by: NEFTALI RALPH @ 11/23/2020 09:30 AM Normal [facility] Comment on above: Order Comment: Evalu ate HAND RIGHT 3 VWSon 1 HAND RIGHT [address] [facility] Department of Radiology [address] [place] [id number] ======== Patient Name: ARACELI PÉREZ : 1980 Sex: F Age: Race: White Pt. Location: [facility] Patient Status: D Ordered Date: 11/22/2020 10:50:00 AM Completed Date: 11/22/2020 10:54 AM Requesting Provider: DANYA ROTHMAN Attending Provider: DANYA ROTHMAN Report Copy To: Signs & Symptoms: M25.50 Pain in unspecified joint I10 History: [place] Comments: Evaluate Exam: HAND RIGHT 3 S ======== HAND RIGHT 3 S 11/22/2020 10:54 AM [...] * Early changes of osteoarthritis. Approved by:Josiane Doe/ 9:43 AM. I, Netfali Ralph,have reviewed the image(s) and agree with the findings in this report. Electronically signed: Neftali Ralph. Transcribed by: [email or web address], User Resident: JOSIANE LAWRENCE Electronically Signed by: NEFTALI RALPH @ 11/23/2020 12:29 PM I personally read this/these film(s) with this resident Normal [facility] Comment on above: Order Comment: Evalu ate IMMUNOGLOB BLon 11-22-2020 IgA [Mass/Vol] 410 mg/dL Normal 60-413 [facility] Comment on above: Performed By: #### 9 9744, 43744, 99233 #### [facility] [address] [place] [address], [facility] IgG [Mass/Vol] 908 mg/dL Normal 591-1540 [facility] Comment on above: Performed By: #### 9 9744, 64697, 35733 #### [facility] [address] [place] [address], [place] IgM [Mass/Vol] 58 mg/dL Normal 54-285 [facility] Comment on above: Performed By: #### 9 9744, 80244, 69879 #### [facility] [address] [place] [address], [place] RHEUMATOID FACTOR SERUMon RA <20 Normal 0-[address] [facility] Comment on above: Performed By: #### 9 9744, 87161, 53207 #### [facility] [address] [place] [address], [place] SEDIMENTATION RATEon 021 SED RATE 4 mm/hr Normal 0-[address] [facility] Comment on above: Performed By: #### 5 0103, 69316 #### [facility] [address] [place] [address], [place] t cell subset analysison CD3 % 86.24 % Normal 65.00-90.00 [facility] Comment on above: Order Comment: This test was developed and its performance characteristics determined by the [facility] Flow Cytometry [facility]. It has not been cleared or approved by the U.S. Food and Drug Administration. Performed By: #### 9 0116 #### [facility] [address] CD3 ABSOLUTE 1963 cells/mm3 Normal 760-2130 [facility] Comment on above: Order Comment: This test was developed and its performance characteristics determined by the [facility]ometry [facility]. It has not been cleared or approved by the U.S. Food and Drug Administration. Performed By: #### 9 0116 #### [facility] [address] CD4 % 67.10 % Normal 40.00-70.00 [facility] Comment on above: Order Comment: This test was developed and its performance characteristics determined by the [facility] Cytometry [facility]. It has not been cleared or approved by the U.S. Food and Drug Administration. Performed By: #### 9 0116 #### [facility] [address] CD4 ABSOLUTE 1527 cells/mm3 High 430-1185 [facility] Comment on above: Order Comment: This test was developed and its performance characteristics determined by the [facility]. It has not been cleared or approved by the U.S. Food and Drug Administration. Performed By: #### 9 0116 #### [facility] [address] CD4:CD8 RATIO 3.79 Normal 1.00-4.00 The [facility] Comment on above: Order Comment: This test was developed and its performance characteristics determined by the [facility] Flow Cytometry [facility]. It has not been cleared or approved by the U.S. Food and Drug Administration. Performed By: #### 9 0116 #### [facility] [address] CD8 % 17.70 % Normal 15.00-40.00 [facility] Comment on above: Order Comment: This test was developed and its performance characteristics determined by the [facility] Flow Cytometry [facility]. It has not been cleared or approved by the U.S. Food and Drug Administration. Performed By: #### 9 0116 #### [facility] [address] CD8 ABSOLUTE 403 cells/mm3 Normal 180-865 [facility] Comment on above: Order Comment: This test was developed and its performance characteristics determined by the [facility] Flow Cytometry [facility]. It has not been cleared or approved by the U.S. Food and Drug Administration. Performed By: #### 9 0116 #### [facility] [address] Vital Signs Date Time Vital Sign Value Performing Clinician Facility 10-08-2024 08:47-0400 Body height 162.6 cm Freedom [facility]C [facility] 10-08-2024 08:47-0400 Body mass index (BMI) [Ratio] 43.43 kg/m2 Freedom DE GUZMANC Work Phone: [facility] 10-08-2024 08:47-0400 Body weight 114.76 kg Freedom DE GUZMANC Work Phone: [facility] 10-08-2024 08:47-0400 Diastolic blood pressure 87 mm[Hg] Freedom ALVARENGA-C [facility] 10-08-2024 08:47-0400 Heart rate 79 /min Freedom ALVARENGA-C [facility] 10-08-2024 08:47-0400 Systolic blood pressure 129 mm[Hg] Freedom ALVARENGA-C Work Phone: [facility] 09-18-2024 13:51-0400 Body height 162.56 cm Tash Marika LIQUEFACTION AND REGASIFICATION HELPER-C Work Phone: [facility] 09-18-2024 13:51-0400 Body mass index (BMI) [Ratio] 43.1 kg/m2 Tash Hairston LIQUEFACTION AND REGASIFICATION HELPER-C Work Phone: [facility] 09-18-2024 13:51-0400 Body temperature 97.7 [degF] Tash Hairston LIQUEFACTION AND REGASIFICATION HELPER-C Work Phone: [facility] 09-18-2024 13:51-0400 Body weight 113.93 kg Tash Hairston LIQUEFACTION AND REGASIFICATION HELPER-C Work Phone: [facility] 09-18-2024 13:51-0400 Diastolic blood pressure 80 mm[Hg] Tash Hairston LIQUEFACTION AND REGASIFICATION HELPER-C Work Phone: [facility] 09-18-2024 13:51-0400 Heart rate 102 /min Tash Hairston LIQUEFACTION AND REGASIFICATION HELPER-C Work Phone: [facility] 09-18-2024 13:51-0400 Respiratory rate 18 /min Tash Hairston LIQUEFACTION AND REGASIFICATION HELPER-C Work Phone: [facility] 09-18-2024 13:51-0400 SaO2% (BldA) [Mass fraction] 97 % Tash Hairston LIQUEFACTION AND REGASIFICATION HELPER-C Work Phone: [facility] 09-18-2024 13:51-0400 Systolic blood pressure 128 mm[Hg] Tash Hairston LIQUEFACTION AND REGASIFICATION HELPER-C Work Phone: [facility] 09-11-2024 13:27-0400 Body height 162.56 cm Tash Hairston LIQUEFACTION AND REGASIFICATION HELPER-C Work Phone: [facility] 09-11-2024 13:27-0400 Body mass index (BMI) [Ratio] 43.6 kg/m2 Tash Hairston LIQUEFACTION AND REGASIFICATION HELPER-C Work Phone: [facility] 09-11-2024 13:27-0400 Body temperature 97.3 [degF] Tash Hairston LIQUEFACTION AND REGASIFICATION HELPER-C Work Phone: [facility] 09-11-2024 13:27-0400 Body weight 115.21 kg Tash Hairston LIQUEFACTION AND REGASIFICATION HELPER-C Work Phone: [facility] 09-11-2024 13:27-0400 Diastolic blood pressure 86 mm[Hg] Tash Hairston LIQUEFACTION AND REGASIFICATION HELPER-C Work Phone: [facility] 09-11-2024 13:27-0400 Heart rate 95 /min Tash Hairston LIQUEFACTION AND REGASIFICATION HELPER-C Work Phone: [facility] 09-11-2024 13:27-0400 SaO2% (BldA) [Mass fraction] 96 % Tash Hairston LIQUEFACTION AND REGASIFICATION HELPER-C Work Phone: [facility] 09-11-2024 13:27-0400 Systolic blood pressure 148 mm[Hg] Tash Hairston LIQUEFACTION AND REGASIFICATION HELPER-C Work Phone: [facility] 07-31-2024 15:35-0400 Diastolic blood pressure 95 mm[Hg] Aamir Trevino MD Work Phone: [facility] 07-31-2024 15:35-0400 Systolic blood pressure 165 mm[Hg] Aamir Trevino MD Work Phone: [facility] 07-08-2024 09:04-0400 Body height 162.6 cm Freedom ALVARENGA-C Work Phone: [facility] 07-08-2024 09:04-0400 Body mass index (BMI) [Ratio] 43.26 kg/m2 Freedom ALVARENGA-C [facility] 07-08-2024 09:04-0400 Body weight 114.31 kg Freedom ALVARENGA-C Work Phone: [facility] 07-08-2024 09:04-0400 Diastolic blood pressure 81 mm[Hg] Freedom ALVARENGA-C Work Phone: [facility] 07-08-2024 09:04-0400 Heart rate 97 /min Freedom Hsu PA-C Work Phone: [facility] 07-08-2024 09:04-0400 Systolic blood pressure 121 mm[Hg] Freedom Hsu PA-C Work Phone: [facility] 12-25-2023 12:14-0500 Body height 162.6 cm [facility] 1 [facility] 12-25-2023 12:14-0500 Body mass index (BMI) [Ratio] 46.35 kg/m2 [facility] 1 [facility] 12-25-2023 12:14-0500 Body weight 122.47 kg P[facility] 1 [facility] 12-05-2023 09:41-0400 Body mass index (BMI) [Ratio] 42.89 kg/m2 Yu Guerrier VISUALIZATION DEVELOPER-PROCUREMENT COST COORDINATOR Work Phone: [facility] 12-05-2023 09:41-0400 Body weight 113.4 kg Yu Guerrier VISUALIZATION DEVELOPER-PROCUREMENT COST COORDINATOR Work Phone: [facility] 12-05-2023 09:41-0400 Diastolic blood pressure 77 mm[Hg] Yu Guerrier VISUALIZATION DEVELOPER-PROCUREMENT COST COORDINATOR Work Phone: [facility] 12-05-2023 09:41-0400 Heart rate 83 /min Yu Guerrier VISUALIZATION DEVELOPER-PROCUREMENT COST COORDINATOR Work Phone: [facility] 12-05-2023 09:41-0400 Systolic blood pressure 125 mm[Hg] Yu Guerrier VISUALIZATION DEVELOPER-PROCUREMENT COST COORDINATOR Work Phone: [facility] 06-01-2023 10:32-0400 Body height 162.6 cm Irwin Rodriguez MD Work Phone: [facility] 06-01-2023 10:32-0400 Body mass index (BMI) [Ratio] 43.06 kg/m2 Irwin Rodrgiuez MD Work Phone: [facility] 06-01-2023 10:32-0400 Body temperature 98.29 [degF] Irwin Rodriguez MD Work Phone: [facility] 06-01-2023 10:32-0400 Body weight 113.85 kg Irwin Rodriguez MD Work Phone: [facility] 06-01-2023 10:32-0400 Diastolic blood pressure 101 mm[Hg] Irwin Rodriguez MD Work Phone: [facility] 06-01-2023 10:32-0400 Heart rate 78 /min Irwin Rodriguez MD Work Phone: [facility] 06-01-2023 10:32-0400 Respiratory rate 18 /min Irwin Rodriguez MD Work Phone: [facility] 06-01-2023 10:32-0400 SaO2% (BldA) [Mass fraction] 100 % Irwin Rodriguez MD Work Phone: [facility] 06-01-2023 10:32-0400 Systolic blood pressure 145 mm[Hg] Irwin Rodriguez MD Work Phone: [facility] 04-25-2023 12:38-0400 Body height 162.6 cm Db Whitten MD Work Phone: [facility] 04-25-2023 12:38-0400 Body mass index (BMI) [Ratio] 42.05 kg/m2 Db Whitten MD Work Phone: [facility] 04-25-2023 12:38-0400 Body weight 111.13 kg Db Whitten MD Work Phone: [facility] 04-25-2023 12:38-0400 Diastolic blood pressure 99 mm[Hg] Db Whitten MD Work Phone: [facility] 04-25-2023 12:38-0400 Heart rate 93 /min Db Whitten MD Work Phone: [facility] 04-25-2023 12:38-0400 Systolic blood pressure 146 mm[Hg] Db Whitten MD Work Phone: [facility] 03-16-2023 10:58-0500 Body height 162.6 cm [facility] 1 [facility] 03-16-2023 10:58-0500 Body mass index (BMI) [Ratio] 42.05 kg/m2 Pmh 1 [facility] 03-16-2023 10:58-0500 Body weight 111.13 kg P[facility] 1 [facility] 03-01-2023 14:45-0500 Body height 162.56 cm Kisha Barkley Other [facility] Other 03-01-2023 14:45-0500 Body mass index (BMI) [Ratio] 42.05 kg/m2 Kisha Barkley Other [facility] 03-01-2023 14:45-0500 Body temperature 97.5 [degF] Kisha Barkley Other [facility] 03-01-2023 14:45-0500 Body weight 111.13 kg Kisha Barkley Other [facility] 03-01-2023 14:45-0500 Respiratory rate 18 /min Kisha Barkley Other [facility] Other 03-01-2023 14:45-0500 SaO2% (BldA) [Mass fraction] 99 % Kisha Barkley Other [facility] Other 10-26-2022 09:00-0400 Body height 162.56 cm Albaro Wilson Other [facility] Other 10-26-2022 09:00-0400 Body mass index (BMI) [Ratio] 43.25 kg/m2 Albaro Wilson Other [facility] Other 10-26-2022 09:00-0400 Body weight 114.31 kg Albaro Wilson Other [facility] [employer] Other 10-26-2022 09:00-0400 Diastolic blood pressure 80 mm[Hg] Albaro Wilson Other [facility] [employer] Other 10-26-2022 09:00-0400 Systolic blood pressure 122 mm[Hg] Albaro Wilson Other [facility] [employer] Other 09-12-2022 14:20-0400 Diastolic blood pressure 70 mm[Hg] [facility] 09-12-2022 14:20-0400 Heart rate 70 /min [facility] 09-12-2022 14:20-0400 Respiratory rate 16 /min [facility] 09-12-2022 14:20-0400 SaO2% (BldA) [Mass fraction] 97 % [facility] 09-12-2022 14:20-0400 Systolic blood pressure 131 mm[Hg] [facility] 09-12-2022 12:54-0400 Body height 162.56 cm [facility] 09-12-2022 12:54-0400 Body temperature 98.2 [degF] [facility] 09-12-2022 12:54-0400 Body weight 113.39 kg [facility] Encounters Encounter Date Encounter Type Care Provider Facility Start: 10-08-2024 End: 10-08-2024 ambulatory Tash Hairston LIQUEFACTION AND REGASIFICATION HELPER-C Work Phone: [facility] Work Phone: Start: 10-08-2024 End: 10-08-2024 Patient encounter procedure Nesha Hoang VISUALIZATION DEVELOPER PROCUREMENT COST COORDINATOR -[facility] Work Phone: Start: 10-08-2024 End: 10-08-2024 Office outpatient visit 25 minutes Freedom Hsu PA-C Work Phone: [facility] Comment on above: Migraine with aura a nd without status migrainosus, not intractable (Primary Dx); History of cerebral aneurysm repair; Fibromyalgia; Anxiety and depression Start: 10-08-2024 End: 10-08-2024 ambulatory FREEDOM Soriano [facility] Start: 10-07-2024 Non-patient / Non-visit Nesha Natalya [facility] Work Phone: Start: 09-18-2024 End: 09-18-2024 ambulatory Tash Hairston LIQUEFACTION AND REGASIFICATION HELPER-C Work Phone: [facility] Work Phone: Start: 09-18-2024 End: 09-18-2024 Patient encounter procedure Kajal Yamileth Chowdary [facility] Work Phone: Start: 09-11-2024 End: 09-11-2024 ambulatory Tash Hairston LIQUEFACTION AND REGASIFICATION HELPER-C Work Phone: [facility] Work Phone: Start: 09-11-2024 End: 09-11-2024 Patient encounter procedure Nesha Hoang [facility] Work Phone: Start: 08-11-2024 End: 08-11-2024 ambulatory Tash Hairston LIQUEFACTION AND REGASIFICATION HELPER-C Work Phone: [facility] Work Phone: Start: 08-11-2024 End: 08-11-2024 Patient encounter procedure Leslie Rodriguez -[facility] Work Phone: Start: 07-31-2024 End: 07-31-2024 Patient encounter procedure Aamir Trevino MD Work Phone: [facility] Comment on above: 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 Start: 07-31-2024 End: 07-31-2024 ambulatory AAMIR TREVINO Not Available Start: 07-08-2024 End: 07-09-2024 Telephone encounter Janis Vidal Neurology, A Department of [facility] Start: 07-08-2024 End: 07-08-2024 Office outpatient new 45 minutes Freedom Hsu PA-C Work Phone: [facility] [place] Comment on above: Migraine with aura a nd without status migrainosus, not intractable (Primary Dx); Frequent headaches; Bilateral occipital neuralgia; History of cerebral aneurysm repair Start: 07-08-2024 End: 07-08-2024 ambulatory FREEDOM Soriano [facility] Start: 07-03-2024 End: 07-03-2024 ambulatory [facility] Start: 06-16-2024 End: 06-16-2024 [facility] Comment on above: Question appointment Start: 06-05-2024 ambulatory [facility] Start: 06-02-2024 End: 06-02-2024 Angela Williamson [...] 05-28-2024 ambulatory Greyson Lincoln Start: 05-15-2024 ambulatory [facility] Start: 01-21-2024 End: 01-21-2024 ambulatory [facility] Start: 01-11-2024 End: 01-11-2024 Telephone encounter Fabiola Berman CMA [facility] Start: 12-31-2023 End: 12-31-2023 Evaluation and management of inpatient DB [facility] Start: 12-25-2023 End: 12-25-2023 ambulatory [facility] Pat Phone Call Provider 1 [facility] - Pre Admit Start: 12-25-2023 End: 12-25-2023 ambulatory BHUMI HELM [facility] Start: 12-05-2023 End: 12-05-2023 Patient encounter procedure Yu Watson Guerrier VISUALIZATION DEVELOPER-PROCUREMENT COST COORDINATOR Work Phone: [facility] Comment on above: Encounter for screen ing colonoscopy (Primary Dx) Start: 12-05-2023 End: 12-05-2023 ambulatory [facility] Start: 11-20-2023 End: 11-20-2023 Telephone encounter Yu Watson Fareed VISUALIZATION DEVELOPER-PROCUREMENT COST COORDINATOR Work Phone: [facility] Start: 10-22-2023 End: 10-22-2023 ambulatory [facility] Start: 06-01-2023 End: 06-01-2023 Documentation procedure Osiris Lacy RN Anabel Lakhwinder [facility] - Medical Oncology Start: 06-01-2023 End: 06-01-2023 Office outpatient visit 15 minutes Irwin Rodriguez MD Work Phone: Anabel Keane [facility] Comment on above: Factor 5 Leiden muta tion, heterozygous (CMS-HCC) (Primary Dx) Start: 04-25-2023 End: 04-25-2023 Office outpatient visit 15 minutes Db Whitten MD [facility] Comment on above: 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 (Primary Dx) Start: 03-19-2023 Telephone encounter Db Whitten MD Work Phone: [facility] Start: 03-16-2023 End: 03-16-2023 ambulatory Pm Pat Phone Call Provider 1 [facility] - Pre Admit Start: 03-01-2023 End: 03-01-2023 ambulatory Kisha Barkley Other [facility] Other Start: 03-01-2023 Office outpatient visit 25 minutes Kisha Barkley [facility] Start: 10-26-2022 End: 10-26-2022 ambulatory Albaro Wilson Other [facility] Other Start: 10-26-2022 Office outpatient visit 15 minutes Albaro Wilson [facility] Start: 09-19-2022 End: 09-19-2022 ambulatory Albaro Wilson Other [facility] Other Start: 09-19-2022 Telephone encounter [facility]o Sh[facility] Start: 09-12-2022 End: 09-12-2022 ambulatory Siva You Facility:[facility] Start: 09-12-2022 End: 09-12-2022 Admission to same day surgery center [facility] Work Phone: Start: 09-12-2022 End: 09-12-2022 ambulatory NON STAFF [facility] Work Phone: Start: 06-07-2022 ambulatory SHAD SHAMMO Facility:H 1 Start: 04-21-2022 End: 04-22-2022 ambulatory SHAD SHAMMO Facility:[facility] Start: 04-03-2022 End: 04-03-2022 ambulatory SHAD SHAMMO Facility:[facility] Start: 01-31-2022 End: 02-01-2022 ambulatory LASHAUN JES Facility:[facility] Start: 01-10-2022 End: 01-11-[address] OMAR GUIDRY . Facility:[facility] Start: 12-20-2021 End: 12-20-2021 ambulatory NON STAFF Facility:[facility] Start: 12-20-2021 End: 12-20-2021 ambulatory NON STAFF [facility] Work Phone: Start: 12-20-2021 End: 12-20-2021 Patient encounter procedure DO Ron Wallace Work Phone: [facility] [place] Start: 12-20-2021 End: 12-21-[address] OMAR GUIDRY . Facility:[facility] Start: 12-10-2021 End: 12-11-2021 ambulatory SHAD ELLIOTT Facility:[facility] Start: 12-06-2021 End: 12-07-2021 ambulatory SHAD SHAMMO Facility:[facility] Start: 11-08-2021 End: 11-09-2021 ambulatory SHAD SHAMRAYMUNDO Facility:[facility] Start: 11-03-2021 Encounter for genera l adult medical examination without abnormal findings DR DOCTOR HORNER [facility] Start: 11-01-2021 End: 11-02-[address] DOCTOR HORNER Facility:[facility] Start: 11-01-2021 End: 11-02-2021 Encounter for general adult medical examination without abnormal findings DR DOCTOR HORNER Facility:[facility] Start: 09-23-2021 End: 09-23-[address] CASSY DODSON . Facility:[facility] Start: 07-28-2021 End: 07-28-2021 ambulatory IRAM ROTH Facility:[facility] Procedures Date Procedure Procedure Detail Performing Clinician Start: 10-08-2024 Follow-up visit Follow-up FREEDOM HSU Start: 09-18-2024 Quick Strep (POC) Tash OLIVERC Work Phone: Start: 07-31-2024 [facility] Aamir Trevino MD Work Phone: Start: 06-02-2024 End: 06-02-2024 SKIN / NAIL BIOPSY Chau Williamson MD Work Phone: Start: 12-31-2023 Colonoscopy Fabiola Berman CMA Start: 09-12-2022 Esophagogastroduodenoscopy Start: 07-05-2022 Adult depression screening assessment [facility] 1 Start: 07-19-2020 Mammography Chau Williamson MD Work Phone: Plan of Treatment Date Care Activity Detail Author Start: 12-30-2033 Screening for malignant neoplasm of colon [facility] Start: 12-30-2028 Screening for malignant neoplasm of colon Colonoscopy [facility] Start: 09-28-2028 DTaP,Tdap and Td Vaccines (2 - Td or Tdap) DTaP,Tdap and Td Vaccines (2 - Td or Tdap) [facility] Start: 10-08-2025 Adult BMI Screening Adult BMI Screening [facility] Start: 10-08-2025 Tobacco Screening Tobacco Screening [facility] Start: 07-08-2025 Adult BMI Screening Adult BMI Screening [facility] Start: 07-08-2025 Tobacco Screening Tobacco Screening [facility] Start: 02-10-2025 End: 02-10-2025 Patient encounter procedure 02/10/2025 11:30 AM EST Office Visit [facility] [address] [place] [address] Freedom Hsu, PA-C [address] [facility] [place] [address] [facility] Start: 12-30-2024 Adult BMI Screening Adult BMI Screening [facility] Start: 12-30-2024 Tobacco Screening Tobacco Screening [facility] Start: 12-24-2024 Adult BMI Screening Adult BMI Screening [facility] Start: 12-24-2024 Tobacco Screening Tobacco Screening [facility] Start: 12-04-2024 Adult BMI Screening Adult BMI Screening [facility] Start: 12-04-2024 Tobacco Screening Tobacco Screening [facility] Start: 12-03-2024 End: 12-03-2024 Patient encounter procedure 12/03/2024 10:00 AM EDT Office Visit [facility] [address] [place] [address] Chau Williamson MD [address] [place] [address] [facility] Start: 10-08-2024 End: 10-08-2024 Patient encounter procedure 10/08/2024 9:00 AM EDT Office Visit [facility] [address] [place] [address] Freedom Hsu, PA-C [address], [address] [place] [address] [facility] Start: 10-06-2024 Influenza vaccination [facility] Start: 07-08-2024 End: 07-08-2024 Patient encounter procedure 07/08/2024 9:00 AM EDT [facility] [place] [address] [place] [phone] Freedom Hsu PA-C [address], [address] [place] [phone] [facility] Start: 07-03-2024 End: 07-03-2024 Patient encounter procedure [facility] Start: 06-02-2024 End: 06-02-2024 Patient encounter procedure 06/02/2024 10:20 AM EDT Office Visit [facility] [address] [place] [address] Chau Williamson MD [address] [place], [place] [id number] Arrived [facility] Comment on above: Arrived Start: 05-31-2024 Adult BMI Screening Adult BMI Screening [facility] Start: 04-24-2024 Adult BMI Screening Adult BMI Screening [facility] Start: 04-24-2024 Tobacco Screening Tobacco Screening [facility] Start: 03-19-2024 Tobacco Screening Tobacco Screening [facility] Start: 03-16-2024 Adult BMI Screening Adult BMI Screening [facility] Start: 01-02-2024 Tobacco Screening Tobacco Screening [facility] Start: 12-31-2023 End: 12-31-2023 Admission to same day surgery center [facility] Surgery Comment on above: COLONOSCOPY DIAGNOSTIC / SCREENING [4537 8 (CPT )] Start: 12-31-2023 End: 12-31-2023 Anesthesia consultation 12/31/2023 12:00 PM EST Anesthesia Event [facility] Surgery [address] [place] [phone] Derick Snyder, DO [address] [facility] [place] [address] [facility] Surgery Start: 12-31-2023 End: 12-31-2023 Colonoscopy flx dx w/collj spec when pfd [facility] Start: 12-31-2023 Subsequent hospital visit by physician [facility] Start: 12-17-2023 End: 12-17-2023 ambulatory 12/17/2023 3:40 PM EST Support Visit [facility] Pre Admit [address] [facility] [phone] [facility] - Pre Admit Start: 10-07-2023 Influenza vaccination Influenza Vaccine [facility] Start: 07-06-2023 Depression Screening Depression Screening [facility] Start: 06-01-2023 End: 06-01-2023 Patient encounter procedure 06/01/2023 10:30 AM EDT Office Visit Anabel L [facility] - Medical Oncology [address] [place] [phone] Irwin Rodriguez MD [address] [place] [address] Anabel Keane [facility] Medical Oncology Start: 04-27-2023 End: 04-27-2023 Patient encounter procedure 04/27/2023 3:15 PM EDT Office Visit Anabel Keane [facility] [address] [place] [phone] Irwin Rodriguez MD [address] [place] [address] Anabel Keane [facility] - [facility] Oncology Start: 03-19-2023 End: 03-19-2023 Patient encounter procedure 03/19/2023 3:45 PM EST Office Visit [facility] [address] [place] [address] [place] [address] [place] [phone] Db Whitten MD [address] [place] [id number] [facility] Start: 03-19-2023 End: 03-19-2023 Admission to same day surgery center 03/19/2023 9:30 AM EST - 03/19/2023 10:00 AM EST Surgery [facility] [address] [facility] [place] [phone] Db Whitten MD [address] [place] [id number] CYSTOSCOPY WITH BLADDER IRRIGATION AND [facility] BLADDER SOLUTION [47625 (CPT )] [facility] Comment on above: CYSTOSCOPY WITH BLADDER IRRIGATION AND [facility] BLADDER SOLUTION [01615 (CPT )] Start: 03-19-2023 End: 03-19-2023 Cystourethroscopy [facility] Start: 03-19-2023 Subsequent hospital visit by physician 03/19/2023 9:30 AM EST Hospital Encounter [facility] Surgery [address] [place] [phone] Db Whitten MD [address] [place] [id number] [facility] Start: 10-06-2022 Influenza vaccination Influenza Vaccine [facility] Start: 09-12-2022 [facility] Start: 12-20-2021 MR Unspecified body region [facility] Start: 12-20-2021 MRI of head MR head/brain wo/w con [facility] Start: 07-19-2021 Screening for malignant neoplasm of breast Mammogram [facility] Start: 2008 Screening for malignant neoplasm of cervix [facility] Start: 09-05-1999 Screening for malignant neoplasm of cervix Pap Smear [facility] Start: 1996 Adult BMI Follow Up Plan Adult BMI Follow Up Plan [facility] Start: 1978 Screening for malignant neoplasm of colon [facility] Start: 1978 Tobacco Counseling Tobacco Counseling [facility] End: 12-04-2024 Colonoscopy Colonoscopy GI Routine Encounter for screening colonoscopy 1 Occurrences starting 12/05/2023 until 12/04/2024 [facility] Work Phone: Comment on above: 1 Occurrences starting 12/05/2023 until 12/04/2024 Comprehensive metabo lic 2000 panel - Serum or Plasma [facility] Dermatopathology exam Dermatopat hology exam Pathology and Cytology Timed Neoplasm of unspecified behavior of bone, soft tissue, and skin Release Upon Ordering for 1 Occurrences starting 06/02/2024 [facility] Work Phone: Comment on above: Release Upon Ordering for 1 Occurrences starting 06/02/2024 Patient Education [facility] Work Phone: [facility] Immunizations Immunization Date Immunization Notes Care Provider Jacqueline rodrigues 09-28-2018 tetanus toxoid, redu moon diphtheria toxoid, and acellular pertussis vaccine, adsorbed Pmh 1 [facility] Payers Date Payer Category Payer Medicaid [id number] 2022 Medicaid [id number] 2021 Self-pay [id number] 1978 Unknown [id number] 2.16.84 0.1.238558.3.579.2.593 1978 Unknown [id number] 2.16.84 0.1.758194.3.579.2.593 1978 Unknown [id number] 2.16.84 0.1.608873.3.579.2.593 1978 Unknown [id number] 2.16.84 0.1.026799.3.579.2.593 1978 Unknown [id number] 2.16.84 0.1.965146.3.579.2.593 1978 Unknown [id number] 2.16.84 0.1.676231.3.579.2.593 1978 Unknown [id number] 2.16.84 0.1.391552.3.579.2.593 1978 Unknown [id number] 2.16.84 0.1.674535.3.579.2.593 1978 Unknown [id number] .16.84 0.1.688792.3.579.2.593 1978 Unknown [id number] .16.84 0.1.854198.3.579.2.593 1978 Unknown [id number] .16.84 0.1.025647.3.579.2.593 1978 Unknown [id number] .16.84 0.1.028214.3.579.2.593 1978 Unknown [id number] .16.84 0.1.112176.3.579.2.593 1978 Unknown [id number] .. 840.1.168578.3.579.2.128 1978 Unknown [id number] .16. 840.1.390711.3.579.2.128 1978 Unknown [id number] .. 840.1.516853.3.579.2.1285 1978 Unknown [id number] .16. 840.1.668973.3.579.2.1285 1978 Unknown [id number] 2.16.8 40.1.134632.3.579.2.1285 1978 Unknown [id number] 2.16.8 40.1.772805.3.579.2.1286 1978 Unknown [id number] 2.16.8 40.1.517759.3.579.2.1259 1978 Unknown [id number] 2.16.84 0.1.769120.3.579.2.1259 1978 Unknown [id number] 2.16. 840.1.009424.3.579.2.1286 1978 Unknown [id number] 2.16. 840.1.960433.3.579.2.1286 1978 Unknown [id number] 2.16.8 40.1.024753.3.579.2.1286 1959 Medicaid [id number] Unknown [id number] 2.16.8 40.1.274332.3.579.2.531 Unknown [id number] 2.16.8 40.1.391688.3.579.2.531 Social History Date Type Detail Facility Tobacco smoking stat [facility] Unknown if ever smoked [facility] Work Phone: Start: 1980 Sex Assigned At Female F [facility] Start: 09-12-2022 Tobacco smoking stat [facility] Smoker (finding) [facility] Start: 03-18-2020 End: 07-05-2022 Sex Assigned At [facility] Start: 03-19-2023 End: 12-05-2023 Tobacco smoking status NHIS Smokes tobacco daily [facility] History of tobacco use Cigarette Smoker P [facility] Start: 03-18-2020 End: 03-19-2023 Cigarettes smoked current (pack per day) - Reported 0.3 [facility] Start: 03-19-2023 End: 12-05-2023 Tobacco use and exposure Smokeless tobacco non-user [facility] Start: 04-25-2023 End: 10-08-2024 Alcoholic beverage intake Current non-drinker of alcohol (finding) [facility] How often to you hav e a drink containing alcohol? Never [facility] How many standard drinks containing alcohol do you have on a typical day? Patient does not drink [facility] Start: 06-21-2022 Tobacco Comment Has a patch an d down to 4 cig. Per day [facility] Start: 1980 Sex assigned at Not on file P [facility] Start: 09-10-2014 Sex Female (finding) [facility] Tobacco smoking stat [facility] Tobacco smoking consumption unknown [facility] Start: 05-21-2024 Gender identity Identifies as female gender (finding) [facility] Start: 07-31-2024 Alcoholic beverage intake Defer [facility] Medical Equipment Procedure Code Equipment Code Equipment Origin al Text Equipment Identifier Dates Graft Bn 5ml Yomi Puros Strl Lf - [id number] Start: 07-05-2022 [place] Yasargil Titanium Aneurysm Clip [id number] Start: 07-05-2022 Cover Bur Hl 14m m Lp Tab Unv Neuro 2 Thk.5mm Ns Lf - [id number] Start: 07-05-2022 Cover Bur Hl Crn fcl 10mmx.5mm Lp Tab Strl Lf Disp - [id number] Start: 07-05-2022 Plate Bn 16mm 2 Hl Lp Unv Neuro Ii Crnmxf Ti Ns Lf 1.5mm Scr - [id number] Start: 07-05-2022 Screw Bn 4mm 1.5 mm Slf Drl Xpn Crnmxf Strl - [id number] Start: 07-05-2022 Goals Date Patient Goal Desired Activity /State Clinical Notes 12-20-2021 to 10-08-2024 Freedom Hsu PA-C - 10/08/2024 9:00 AM EDT Note Date & Type Note Facility 10-08-2024 History of Present illness Narrative [facility] Neurology Office Note 10/06/2024 7:50 PM Patient info: Araceli Pérez is a 44 y.o. female Account No.: [id number] Acct: : 1980 PCP: SALVATORE FERREIRA Chief Complaint: Patient, 44 year old right hand dominant female, presents today for follow up Neurological evaluation regarding headaches. Last seen in the office on 07/08/24 Araceli is present in the office today by herself. Interval Hx: At last office visit (07/08/24) we continued titration of Amitriptyline to 30 mg HS for HANNA/migraine prevention. The Amitriptyline is also being used in treatment of Fibromyalgia. We started Nurtec ODT 75 mg for abortive/symptomatic migraine relief. Also, briefly discussed how bilateral ONB via Pain Management may be useful/helpful in providing relief. It is unclear how often Araceli continues to experience HANNA's/migraines. One minute she states they have been quite often recently secondary to increased stress, then when asked to commit to an approximate number, she reports around 1 per week, which is quite less than the 3-4 per week she was experiencing upon last office visit (07/08/24). Unfortunately, she has been without Nurtec for abortive/symptomatic migraine relief, as she was unclear about the generic name of the medication from pharmacy. Recent increased stress stems from something going on with her back that may require surgery (which she does not want), and she feels like her psychiatric medications are not treating her too well. Araceli also follows with Psychiatry for anxiety/depression. They prescribe her Sertraline, Aripiprazole, and Lamotrigine. She reports being easy to anger, having crying spells at times, and talking faster than usual. Upon further questioning, she admits to feeling jittery and having periodic sweats. Current preventative HANNA/migraine medication: Amitriptyline Preventative med/s previously tried include: Duloxetine, Gabapentin Preventative med/s not indicated include: Propranolol (asthma), Verapamil (on Amlodipine) Current abortive/symptomatic relief HANNA/migraine medication: Tylenol, Nurtec ODT Abortive/Symptomatic relief med/s previously tried include: Abortive/Symptomatic [...] stenosis or occlusion of the large vessels. 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 Past Medical Hx: See EMR Social Hx: [...] remainder of ROS is negative Vitals: BP: 129/87 HR: 79 Weight: 114.8 kg Physical Exam: General: well groomed, appears [...] base, normal stride and bilateral arm swing ASSESSMENT: Araceli is a 43 year old right hand dominant female with a hx of asthma, depression, endometriosis, Factor V Leiden mutation (heterozygous), hyperlipidemia, HTN, GERD, RA, fibromyalgia, and cerebral aneurysm s/p clamping who has frequent headaches, often with features of migraine with aura. PLAN: Continue Amitriptyline 30 mg HS for fibromyalgia and HANNA/migraine prevention. Future consideration to be given to CGRP antagonists for migraine prevention. 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 Continue the Aripiprazole and Lamotrigine, as prescribed by Psychiatry. Call and make an appointment with them for the near future. HANNA log is recommended Identification and avoidance of personal HANNA/migraine triggers discussed Trying to stay on a regular sleep and eating schedule, staying well hydrated, and working on stress management to help reduce HANNA/migraine frequency discussed Follow up in the office in 4 months Electronically Signed by: Freedom Hsu PA-C 10/08/24 1053 documented in this encounter [facility] 08-11-2024 Evaluation note Diagnosis Onset Date Resolution Low back pain at multiple sites acute August 11, 2024 8 :25am Numbness and tingling acute Aug 8:25am Hypertension acute September 11, 2024 1:16pm [facility] Work Phone: 1(996) 570-100107-07-2025 Evaluation note* Diagnosis Onset Date Resolution Status Admit Date Low back pain at multiple sites acut e August 11, 2024 8:25am Numbness and tingling acute Aug 8:25am Anxiety with depression acute A ug2024 1:16pm Brain aneurysm acute September 1:16pm Fibromyalgia acute September 11, 2024 1:16pm Hyperlipidemia acute September 1:16pm Hypertension acute September 11, 2024 1:16pm Low back pain at multiple sites acut e September 11, 2024 1:16pm Numbness and tingling acute Sep 1:16pm [facility] Work Phone: 1(323) 940-278907-07-2025 Evaluation note* Diagnosis Onset Date Resolution Status Admit Date Low back pain at multiple sites acut e August 11, 2024 8:25am Numbness and tingling acute Aug 8:25am Anxiety with depression acute A 2024 1:16pm Brain aneurysm acute September 1:16pm Fibromyalgia acute September 11, 2024 1:16pm Hyperlipidemia acute September 1:16pm Hypertension acute September 11, 2024 1:16pm Low back pain at multiple sites acut e September 11, 2024 1:16pm Numbness and tingling acute Sep us2024 1:16pm Otitis externa acute September 1:31pm Viral URI acute September 18, 2 025 1:31pm [facility] Work Phone: 1(134) 317-468406-26-2025 History of Present illness Narrative* Aamir Trevino [...] meds, nerve injury, and recurrence were addressed.) [place] Protocol: Procedure explained and questions answered to [...] sodium bicarbonate Procedure Details: Biopsy accession number: [id number] Biopsy lab: [facility] Date of biopsy: 06/02/2024 Frozen section biopsy [...] visit: 4 months/skin check documented in this encounterWestern Missouri Medical [id number] Miscellaneous Notes* Telephone Encounter - Janiswilmer Mckinley - 07/08/2024 3:48 PM EDT PA for Nurtec pending via CMM with osborne # [id number] * Telephone Encounter - [facility] - 07/08/2024 3:48 PM EDT Approved with [facility] case # [id number] valid till 01/03/25. Approved for 8 per 30 days documented in this encounterChillicothe [facility]06-03-2025 Telephone encounter Note* Telephone Encounter - [facility] - 07/08/2024 3:48 PM EDT PA for Nurtec pending via CMM with osborne # [id number] [facility]06-03-2025 Telephone encounter Note* Telephone Encounter - [facility] - 07/08/2024 3:48 PM EDT Approved with [facility] case # [id number] valid till 01/03/25. Approved for 8 per 30 days [facility]06-03-2025 History of Present illness Narrative* Freedom Hsu PA-C - 07/08/2024 9:00 AM EDT [facility] Neurology Office Note 07/07/2024 12:57 PM Patient info: Araceli Pérez is a 43 y.o. female Account No.: [id number] Acct: : 1980 PCP: BHUMI HELM APRN-COLD MILL SUPERVISOR Chief Complaint: Patient, 43 year old right hand dominant female, presents today for initial Neurological evaluationregarding headaches. Referred by Dr. 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 Patient stated during the conversation previously seen for aneurysm and had brain surgery two years ago. Please advise can patient be seen by Dr Henson in [place] for headaches or if she should be seen by Dr Bautista. Patient prefers [place] location . Patient can be reached at [phone]. Thanks so much * Telephone Encounter - Lisa Gamez RN - 06/16/2024 9:10 AM EDT Patient had aneurysm clipped in 2022 by NSX. Okay to schedule for headaches. * Telephone Encounter - Olga Boyd - 06/16/2024 9:10 AM EDT Top Carrier spoke to patient regarding scheduling with Dr Henson in [place]. Patient was driving will call back into the office to schedule. documented in this encounterChillicothe [facility] Center05-12-2025 Telephone encounter Note* Telephone Encounter - Christy [...] EVER BEEN SEEN BY A NEUROLOGIST BEFORE? [facility]05-12-2025 Telephone encounter Note* Telephone Encounter - Olga Boyd - 06/16/2024 9:10 AM EDT Top Carrier spoke to patient regarding new patient appointment for headaches. Patient stated during the conversation previously seen for aneurysm and had brain surgery two years ago. Please advise can patient be seen by Dr Henson in [place] for headaches or if she should be seen by Dr Bautista. Patient prefers [place] location . Patient can be reached at [phone]. Thanks so much [facility]05-12-2025 Telephone encounter Note* Telephone Encounter - Lisa Gamez RN - 06/16/2024 9:10 AM EDT Patient had aneurysm clipped in 2022 by NSX. Okay to schedule for headaches. [facility]05-12-2025 Telephone encounter Note* Telephone Encounter - Olga Boyd - 06/16/2024 9:10 AM EDT Top Carrier spoke to patient regarding scheduling with Dr Henson in [place]. Patient was driving will call back into the office to schedule. [facility] HospitalAdeyohMercy Health Allen [id number] History of Present illness Narrative* Chau Williamson [...] TISSUE, AND SKIN (3) Vertex of Scalp [place] pearly papule Lesion biopsy Type of biopsy: [...] Visit: pending biopsy results documented in this encounterWestern Missouri Medical [id number] NoteUT Cardiology - [facility] Subjective Araceli Pérez is a [...] directed., Disp: 90 tablet, Rfl: 3 omega 1-vnr-fzi-fish oil 300-1,000 mg capsule,delayed release(DR/EC), , Disp: [...] liver function stable Chol (more content not included)...[facility]12-06-2024 Miscellaneous Notes* Telephone Encounter - Fabiola Berman [...] She stated complete understanding. documented in this encounterChillicothe [facility] Center12-06-2024 Telephone encounter Note* Telephone Encounter - Fabiola Berman CMA - 01/11/2024 2:05 PM EST ----- Message from Dr. Db Elizabeth DO sent at 01/10/2024 7:23 AM EST ----- Please let patient know that she had a colon polyp which was precancerous and I recommend surveillance colonoscopy in 5 years unless problems. Thanks, Dr. Hough [employer] [id number] Telephone encounter Note* Telephone Encounter - Fabiola Berman CMA - 01/11/2024 2:05 PM EST I gave the patient the results message from Dr Elizabeth. She stated complete understanding. [employer] [id number] Miscellaneous Notes* Perioperative Nursing Note - Radha Andrade RN - 12/25/2023 2:20 PM EST Preoperative Education Checklist- General Surgery date: 12/31/23 Surgery time: 1200 Arrival time: 1000 1. Bring a photo ID and your insurance card with you the day of surgery. You will check in at the main lobby of the [facility]- registration desk is straight ahead as soon as you walk in. Tell them you are here for surgery. 2. If you have a Living Will/Durable Power of Admitting Officer for Health Care that is not on [...] after you have bathed. 5. NO nail luxembourger/acrylic on at least one finger. If you are having a hand, wrist or foot surgery then all nail luxembourger and artificial/acrylic nails must be removed from [...] please call the Preadmission Testing office at [phone], Mon.-Fri. 7 a.m.-3 p.m. Leave a voicemail [...] taking 0 days prior to procedure omega 1-gxj-hiq-fish oil (FISH OIL) 300-1,000 mg capsule,delayed release(DR/EC) [...] days prior to procedure documented in this encounterChillicothe VA Medical Center11-19-2024 Nurse Note* Perioperative Nursing Note - Radha Andrade RN - 12/25/2023 2:20 PM EST Preoperative Education Checklist- General Surgery date: 12/31/23 Surgery time: 1200 Arrival time: 1000 1. Bring a photo ID and your insurance card with you the day of surgery. You will check in at the main lobby of the [facility]- registration desk is straight ahead as soon as you walk in. Tell them you are here for surgery. 2. If you have a Living Will/Durable Power of Admitting Officer for Health Care that is not on [...] after you have bathed. 5. NO nail luxembourger/acrylic on at least one finger. If you are having a hand, wrist or foot surgery then all nail luxembourger and artificial/acrylic nails must be removed from [...] please call the Preadmission Testing office at [phone], Mon.-Fri. 7 a.m.-3 p.m. Leave a voicemail [...] taking 0 days prior to procedure omega 9-rkj-bbo-fish oil (FISH OIL) 300-1,000 mg capsule,delayed release(DR/EC) [...] Stop taking 0 days prior to procedure [facility]10-30-2024 History of Present illness Narrative* Yu Guerrier, VISUALIZATION DEVELOPER-PROCUREMENT COST COORDINATOR - 12/05/2023 9:30 AM EDT Chief Complaint: [...] pain Acid reflux Arthritis Asthma Bleeding disorder ([facility]) Factor V(clotting disorder) per patient Cerebral aneurysm Clotting disorder ([facility]) Dental disease Upper dentures, lower partial Depression Dysphagia Endometriosis Factor 5 Leiden mutation, heterozygous ([facility]) Fibromyalgia, primary GERD (gastroesophageal reflux disease) Without esophagitis Hyperlipidemia Hypertension Injury of back Irregular menstruation Leaking of urine Memory loss Menopause Migraine headache Obesity Painful menstruation Pelvic pain Pneumonia Rheumatoid arthritis ([facility]) Seizures ([facility]) 1998 During Septoplasty surgery per chart from [facility]. Sinusitis, chronic Wears partial dentures Past Surgical History: Procedure Laterality Date ADENOIDECTOMY BLADDER SUSPENSION CRANIOTOMY REPAIR ANEURYSM(MCA ANEURYSM CLIPPING) Right 07/05/2022 Performed by Eric Jimenez MD at [facility] CYSTOSCOPY WITH BLADDER IRRIGATION AND [facility] BLADDER SOLUTION N/A 03/19/2023 Performed by Db Whitten MD at [facility] Diagnostic cerebral angiogram N/A 07/06/2022 Performed by Yi Bautista MD at [facility] Diagnostic cerebral angiogram N/A 01/02/2022 Performed by Yi Bautista MD at [facility] EGD with bx N/A 07/26/2016 Performed by Db Acevedo MD at [facility] ENDOSCOPY ESSURE TUBAL LIGATION FOOT SURGERY Right HYSTERECTOMY 2010 LAPAROSCOPIC CHOLECYSTECTOMY N/A 04/09/2019 Performed by Geovany Bain MD at [facility] NASAL SEPTOPLASTY W/ TURBINOPLASTY OOPHORECTOMY TONSILLECTOMY [...] by mouth nightly., Disp: , Rfl: omega 2-dal-gqu-fish oil (FISH OIL) 300-1,000 mg capsule,delayed release(DR/EC), [...] patient/family/caregiver Referring and communicating with other health career services manager Encounter for screening colonoscopy [Z12.11] SHANNA SINGH [facility] General [facility] [place] This note was created with the assistance of a speech recognition program. While intending to generate a timely document that accurately reflects the content of the visit, no guarantee can be provided that every grammatical or spelling mistake has been or will be identified or corrected. Thank you for your understanding. SHANNA Singh 12/05/23 1000 documented in this encounterChillicothe VA Medical Center10-15-2024 Miscellaneous Notes* Telephone Encounter - Ruthy Stokes - 11/20/2023 10:00 AM EDT Patient called to cancel her colonoscopy appointment for today with Yu Guerrier NP, as she herchild ran away in the middle of the night and she is at the [facility] filling out paperwork. She will call us back later to reschedule her appointment. documented in this encounterChillicothe VA Medical Center10-15-2024 Telephone encounter Note* Telephone Encounter - Ruthy Stokes - 11/20/2023 10:00 AM EDT Patient called to cancel her colonoscopy appointment for today with Yu Guerrier NP, as she herchild ran away in the middle of the night and she [place] paperwork. She will call us back later to reschedule her appointment. [facility] Hingi [id number] NoteToday states that she is out of elavil and does not have appt with PCP until Nov 09- therefore will prescribed short 3 week script to fillUnLakeHealth [facility]09-16-2024 NoteF/U with PCP as scheduledUnLakeHealth [facility]Point Medical Center09-16-2024 NoteLipid abnormalities are stable, continue lipitor 40 mg dailyUnLakeHealth TriPoint Medical Center09-16-2024 NoteHypertension is stable and well controlled Continue hydrochlorothiazide, losartan, norvascUniversity [facility]09-16-2024 NoteCurrently resolvedUnLakeHealth [facility] Medical Center 10-22-2023 NotePt is here for a eight month follow up.[facility]09-16-2024 NotePatient here for 1.5 year follow up hypertension. Still has pain under her right breast, where the bone is . Denies SOB and palpitations. Says she hasn't been lightheaded/dizzy since her aneurysm surgery in June 2022. Review of Systems Musculoskeletal: Positive for arthritis, back pain and joint pain. Neurological: Positive for headaches. All other systems reviewed and are negative.[facility] 10-22-2023 NoteUTP CARDIOLOGY PROGRESS NOTE HPI: Araceli [...] but denied syncope. States that Neuro-surg at [facility] is planning surgery for aneurysm. Previous HPI [...] 40 mg by mouth at bedtime. omega 6-zzh-zxw-fish oil 300-1,000 mg capsule,delayed release(DR/EC) omeprazole (PriLOSEC) [...] liver function normal Component 03/12/23 01/01/23 01/01/23 07/07/2201/23 05/17/23 White Blood Cells 9.1 -- -- 12.2 High 18.8 High 9.4 RBC count 4.80 -- -- 3.75 Low 4.04 4.97 Hemoglobin 14.4 -- Negative 11.6 Low 12.4 15.4 Hematocrit 42.2 -- -- 34.1 Low 36.8 45.1 MCV 88 -- -- 91 91 91 (more content not included)...[facility]04-26-2024 History of Present illness Narrative* Osiris Lacy RN - 06/01/2023 10:56 AM EDT Patient is here for follow up with Dr. Rodriguez. Orders received to follow up prn. Copy of recent labs provided and pcp info for Dr. Banuelos. documented in this encounterChillicothe VA Medical Center04-26-2024 History of Present illness Narrative* Irwin Rodriguez MD - 06/01/2023 10:30 AM EDT [facility] 06/01/23 Araceli Pérez is a 42 y.o. [...] She has been followed by Dr. Boyd ([facility]), due to relocation she came [...] she has a connective tissue disease and cristine was sent for a genetic test although [...] pain Acid reflux Arthritis Asthma Bleeding disorder ([facility]) Factor V(clotting disorder) per patient Cerebral aneurysm Clotting disorder ([facility]) Dental disease Upper dentures, lower partial Depression Dysphagia Endometriosis Factor 5 Leiden mutation, heterozygous ([facility]) Fibromyalgia, primary GERD (gastroesophageal reflux disease) Without esophagitis Hyperlipidemia Hypertension Injury of back Irregular menstruation Leaking of urine Memory loss Menopause Migraine headache Obesity Painful menstruation Pelvic pain Pneumonia Rheumatoid arthritis ([facility]) Seizures ([facility]) 1998 During Septoplasty surgery per chart from [facility]. Sinusitis, chronic Wears partial dentures Past Surgical History: Procedure Laterality Date ADENOIDECTOMY BLADDER SUSPENSION CRANIOTOMY REPAIR ANEURYSM(MCA ANEURYSM CLIPPING) Right 07/05/2022 Performed by Eric Jimenez MD at [facility] CYSTOSCOPY WITH BLADDER IRRIGATION AND [facility] BLADDER SOLUTION N/A 03/19/2023 Performed by Db Whitten MD at [facility] Diagnostic cerebral angiogram N/A 07/06/2022 Performed by Yi Bautista MD at [facility] Diagnostic cerebral angiogram N/A 01/02/2022 Performed by Yi Bautista MD at [facility] EGD with bx N/A 07/26/2016 Performed by Db Acevedo MD at [facility] ENDOSCOPY ESSURE TUBAL LIGATION FOOT SURGERY Right HYSTERECTOMY 2010 LAPAROSCOPIC CHOLECYSTECTOMY N/A 04/09/2019 Performed by Geovany Bain MD at [facility] NASAL SEPTOPLASTY W/ TURBINOPLASTY OOPHORECTOMY TONSILLECTOMY [...] 0 Dose: 1 spray Signed by: LYN MaguirePROCUREMENT COST COORDINATOR 4 mg, alternating nares, As needed Commonly known as: NARCAN omega 8-wca-eih-fish oil 300-1,000 mg capsule,delayed release(DR/EC) Refills: 0 [...] and Hemostatic Factor 5 Leiden mutation, heterozygous ([facility]) - Primary Impression: Heterozygous Factor 5 Leiden [...] this note were generated using voice recognition Hitsbook dictation software. Although every effort was made to ensure the accuracy of this automated study manager, some errors in study manager may have occurred. CC: Patient Care Team: [...] MD: Shad Elliott APRN-CNP documented in this encounterNew[facility] Evaluation + Plan note* Assessment & Plan Note - Db Whitten MD - 04/25/2023 12:48 PM EDT Associated Problem(s): Mixed stress and urge urinary incontinence No constipation no dry mouth. Will start her on 5 mg VESIcare. Refer her to Dr. Engle. Certainly made need some urodynamic study as well. Deferred to his evaluation and management. [facility] HospitalCeptaris [id number] Miscellaneous Notes* Assessment & Plan Note - Db Whitten MD - 04/25/2023 12:48 PM EDTAssociated Problem(s): Mixed stress and urge urinary incontinence No constipation no dry mouth. Will start her on 5 mg VESIcare. Refer her to Dr. Engle. Certainly made need some urodynamic study as well. Deferred to his evaluation and management. documented in this encounterCh[facility] History of Present illness Narrative* Db Whitten MD - 04/25/2023 12:45 PM EDT Images from the original note were not included. [address] [place] [id number] Patient: Araceli Pérez Date of : 1980 [...] pain Acid reflux Arthritis Asthma Bleeding disorder ([facility]) Factor V(clotting disorder) per patient Cerebral aneurysm Clotting disorder ([facility]) Dental disease Upper dentures, lower partial Depression Dysphagia Endometriosis Factor 5 Leiden mutation, heterozygous ([facility]) Fibromyalgia, primary GERD (gastroesophageal reflux disease) Without esophagitis Hyperlipidemia Hypertension Injury of back Irregular menstruation Leaking of urine Memory loss Menopause Migraine headache Obesity Painful menstruation Pelvic pain Pneumonia Rheumatoid arthritis ([facility]) Seizures ([facility]) 1998 During Septoplasty surgery per chart from [facility]. Sinusitis, chronic Wears partial dentures Past Surgical History: Procedure Laterality Date ADENOIDECTOMY BLADDER SUSPENSION CRANIOTOMY REPAIR ANEURYSM(MCA ANEURYSM CLIPPING) Right 07/05/2022 Performed by Eric Jimenez MD at [facility] CYSTOSCOPY WITH BLADDER IRRIGATION AND [facility] BLADDER SOLUTION N/A 03/19/2023 Performed by Db Whitten MD at [facility] Diagnostic cerebral angiogram N/A 07/06/2022 Performed by Yi Bautista MD at [facility] Diagnostic cerebral angiogram N/A 01/02/2022 Performed by Yi Bautista MD at [facility] EGD with bx N/A 07/26/2016 Performed by Db Acevedo MD at [facility] ENDOSCOPY ESSURE TUBAL LIGATION FOOT SURGERY Right HYSTERECTOMY 2011 LAPAROSCOPIC CHOLECYSTECTOMY N/A 04/09/2019 Performed by Geovany Bain MD at [facility] NASAL SEPTOPLASTY W/ TURBINOPLASTY OOPHORECTOMY TONSILLECTOMY [...] for opioid reversal. 1 each 0 omega 9-rdj-hog-fish oil (FISH OIL) 300-1,000 mg capsule,delayed release(DR/EC) [...] day. Plan: Renal bladder ultrasound. Cystoscopy urodynamics [facility] bladder solution. Current Assessment & Plan [...] you for your understanding. documented in this encounterChillicothe [facility] Center02-12-2024 Miscellaneous Notes* Telephone Encounter - Db Whitten MD - 03/19/2023 10:33 AM EST Return the office about 1 month. Please cancel the patient's appointment today for 3:45. documented in this encounterChillicothe [facility] Center02-12-2024 Telephone encounter Note* Telephone Encounter - Db Whitten MD - 03/19/2023 10:33 AM EST Return the office about 1 month. Please cancel the patient's appointment today for 3:45. [facility] Work Phone: [phone] Nurse Note* Perioperative Nursing Note - Jayleen Lambert RN - 03/16/2023 10:59 AM EST Preoperative Education Checklist- General Surgery date: 03/19/23 Surgery time: 930a Arrival time: 830a 1. Bring a photo ID and your insurance card with you the day of surgery. You will check in at the main lobby of the [facility]- registration desk is straight ahead as soon as you walk in. Tell them you are here for surgery. 2. If you have a Living Will/Durable Power of Admitting Officer for Health Care that is not on [...] after you have bathed. 5. NO nail luxembourger/acrylic on at least one finger. If you are having a hand, wrist or foot surgery then all nail luxembourger and artificial/acrylic nails must be removed from [...] please call the Preadmission Testing office at [phone], Mon.-Fri. 7 a.m.-3 p.m. Leave a voicemail [...] taking 0 days prior to procedure omega 6-xpz-nvq-fish oil (FISH OIL) 300-1,000 mg capsule,delayed release(DR/EC) Stop taking 0 days prior to procedure omeprazole (PriLOSEC) 40 mg capsule Take morning of procedure rimegepant (NURTEC ODT) 75 mg tablet,disintegrating Stop taking 0 days prior to procedure tiZANidine (ZANAFLEX) 2 mg tablet Stop taking 0 days prior to procedure [facility]02-[facility] Miscellaneous Notes* Perioperative Nursing Note - Jayleen Lambert RN - 03/16/2023 10:59 AM EST Preoperative Education Checklist- General Surgery date: 03/19/23 Surgery time: 930a Arrival time: 830a 1. Bring a photo ID and your insurance card with you the day of surgery. You will check in at the main lobby of the [facility]- registration desk is straight ahead as soon as you walk in. Tell them you are here for surgery. 2. If you have a Living Will/Durable Power of Admitting Officer for Health Care that is not on [...] after you have bathed. 5. NO nail luxembourger/acrylic on at least one finger. If you are having a hand, wrist or foot surgery then all nail luxembourger and artificial/acrylic nails must be removed from [...] please call the Preadmission Testing office at [phone], Mon.-Fri. 7 a.m.-3 p.m. Leave a voicemail [...] taking 0 days prior to procedure omega 9-amb-xbb-fish oil (FISH OIL) 300-1,000 mg capsule,delayed release(DR/EC) Stop taking 0 days prior to procedure omeprazole (PriLOSEC) 40 mg capsule Take morning of procedure rimegepant (NURTEC ODT) 75 mg tablet,disintegrating Stop taking 0 days prior to procedure tiZANidine (ZANAFLEX) 2 mg tablet Stop taking 0 days prior to procedure documented in this encounterChillicothe [facility] Center01-25-2024 Evaluation note* Encounter Date Diagnosis Assessment Notes [...] (suspected) exposure to covid-19 (ICD-10 - Z20.822) [facility] 09-21-2023 Evaluation note* Encounter Date Diagnosis Assessment Notes Treatment Notes Treatment Clinical Notes Oct, GERD (gastroesophageal reflux disease) (ICD-10 - K21.9) Patient reports break through and she will in crease omeprazole 40 mg to BID RTO 6 months Oct, Hiatal hernia (ICD-10 - K44.9) Oct, Schatzki's ring (ICD-10 - K22.2) [facility] 08-08-2023 [facility] NoteCARDIAC STRESS TEST Requesting Physician: Mariel [...] to be dictated by Radiology team separately.[facility] [phone] NoteCONSULTATION CONSULTATION DATE: 01/10/2022 HISTORY OF PRESENT [...] is being seen by Dr. Bautista at [place]. The patient is under the care of RAF[facility] with regards to her migraines. The patient is to have significant workups performed including cardiac. The patient also is to see package reinspector, retina specialist. As such, given the patient's [...] again stress the importance of tobacco cessation.[facility] 12-20-2021 NoteCONSULTATION CONSULTATION DATE: 12/20/2021 CHIEF COMPLAINT: Chronic low back pain, left lower extremity pain. HISTORY OF PRESENT ILLNESS: This is a 41-year-old female who was referred to us by Shad Elliott, nurse practitioner, with [facility]. The patient states she has had [...] The patient is being seen by a ssrs report developer on 02/16/2022, neuropsychiatrist in April of 2022, and she is to [place] [facility] on 01/10/2022. As such, the patient's [...] is limited at this point. CC: Shad Elliott NPVeterans Health AdministrationEvaluation noteNo assessment information availableKettering Health [facility] Campus Work Phone: Evaluation noteNo InformationNort UIBLUEPRINT Other Evaluation note* Diagnosis Factor 5 Leiden mutation, heterozygous (CMS-HCC)- Primary [facility] encounter [facility]* Diagnosis Mixed stress and urge urinary incontinence- Primary Mixed incontinence urge and stress (male)(female) documented in this encounter [facility]* Diagnosis Mixed stress and urge urinary incontinence- Primary Mixed incontinence urge and stress (male)(female) Encounter for screening colonoscopy- Primary [facility] Diagnosis Melanocytic nevus of face, other location- Primary Neoplasm of unspecified behavior of bone, soft tissue, and skin documented in this encounter [facility] HealthcareEvaluation note* Diagnosis Mixed stress and urge urinary incontinence- Primary Mixed incontinence urge and stress (male)(female) Migraine with aura and without status migrainosus, not intractable- Primary Frequent headaches Bilateral occipital neuralgia History of cerebral aneurysm repair Other postprocedural status documented in this encounter [facility]* Diagnosis Squamous cell carcinoma of skin of scalp and neck documented in this encounter [facility] HealthcareEvaluation note* Diagnosis Onset Date Resolution Status Admit Date Low back pain at multiple sites acut e August 11, 2024 8:25am Numbness and tingling acute Aug 8:25am [facility] Work Phone: Evaluation note* Diagnosis Mixed stress and urge urinary incontinence- Primary Mixed incontinence urge and stress (male)(female) Migraine with aura and without status migrainosus, not intractable- Primary History of cerebral aneurysm repair Other postprocedural status Fibromyalgia Unspecified myalgia and myositis Anxiety and depression documented in this encounter [facility] SystemHistory and physical note Author Siva You [facility] September 12, 2022 1:37pm Note Date/Time September 12, 2022 1:3 7pm [facility] [address] [place] [address] Gastroenterology H&P Signed Patient: Araceli Pérez MR#: [id number] : 1980 Acct:[id number] Age/Sex: 42 / F Adm Date: 3 Loc: Room: Type: [facility] Attending Dr: Siva You MD Copies [...] signed by Siva You MD> 09/12/22 1337 [facility] Work Phone: History general Narrative - Reported* [...] Surgical History craniotomy Hospitalization History see above [facility] Other [facility] Discharge instructions Additional Instructions DISCHARGE [...] NOT operate machinery such as power tools, NetEffectn mowers, snow blowers, sewing machines, etc. for [...] problems. -Follow up with PCP. -Office number [phone].[facility] Work Phone: InstructionsNot on filedocumented in this encounter [facility] SystemInstructionsNot on filedocumented in this encounter [facility] SystemInstructionsNot on filedocumented in this encounter [facility] Hingi SystemInstructionsNot on filedocumented in this encounter [facility] SystemInstructionsNot on filedocumented in this encounter [facility] SystemInstructionsNot on filedocumented in this encounter [facility] SystemInstructionsNot on filedocumented in this encounter [facility] SystemInstructionsNot on filedocumented in this encounter [facility] SystemReason for referral (narrative)No reason for referral information availableProvidence Hospital Work Phone: Summary Purpose Family History No [...] history of thyroid disease Unknown Advance Directives No Advanced Directives Records [...] Complaint Admit Date EMG BLE per Tash Marika [facility] August 11 8:25am Reason for Visit Admit Date Low back pain at multiple sites August 8:25am Numbness and tingling August 11, 2024 8:2 5am Chief Complaint Admit Date EMG BLE per Tash Marika [facility] August 11 8:25am establish September 11, 2024 1:1 6pm Reason for Visit Admit Date Low back pain at multiple sites August 8:25am Numbness and tingling August 11, 2024 8:2 5am Hypertension September 11, 2024 1:1 6pm Chief Complaint Admit Date EMG BLE per Tash Hairston PROCUREMENT COST COORDINATOR August 11 8:25am establish September 11, 2024 1:1 6pm right ear pain, cough September 18, 2024 1:31pm Reason for Visit Admit Date Low back pain at multiple sites August 8:25am Numbness and tingling August 11, 2024 8:2 5am Anxiety with depression September 11, 2024 1:16pm Brain aneurysm September 11, 2024 1:1 6pm Fibromyalgia September 11, 2024 1:1 6pm Hyperlipidemia September 11, 2024 1:1 6pm Hypertension September 11, 2024 1:1 6pm Low back pain at multiple sites September 112024 1:16pm Numbness and tingling September 11, 2024 1 :16pm Chief Complaint Admit Date EMG BLE per Tash Hairston [facility] August 11 8:25am establish September 11, 2024 1:1 6pm right ear pain, cough September 18, 2024 1:31pm A1C Check October 08, 2024 10:35am Reason for Visit Admit Date Low back pain at multiple sites August 8:25am Numbness and tingling August 11, 2024 8:2 5am Anxiety with depression September 11, 2024 1:16pm Brain aneurysm September 11, 2024 1:1 6pm Fibromyalgia September 11, 2024 1:1 6pm Hyperlipidemia September 11, 2024 1:1 6pm Hypertension September 11, 2024 1:1 6pm Low back pain at multiple sites September 112024 1:16pm Numbness and tingling September 11, 2024 1 :16pm Otitis externa September 18, 2024 1: 31pm Viral URI September 18, 2024 1: 31pm Additional Source Comments INFORMATION SOURCE (unrecogn ized section and content) DATE CREATED AUTHOR 08/06/2021 [facility] DATE CREATED AUTHOR AUTHOR'S ORGANIZ ATION 06/08/2022 [facility] DATE CREATED AUTHOR AUTHOR'S ORGANIZ ATION 09/18/2022 [facility] DATE CREATED AUTHOR AUTHOR'S ORGANIZ ATION 01/23/2024 [facility] DATE CREATED AUTHOR AUTHOR'S ORGANIZ ATION 05/31/2024 [facility] DATE CREATED AUTHOR AUTHOR'S ORGANIZ ATION 07/08/2024 [facility] DATE CREATED AUTHOR AUTHOR'S ORGANIZ ATION 08/01/2024 [facility] dical Specialists [facility] DATE CREATED AUTHOR AUTHOR'S ORGANIZ ATION 10/09/2024 [facility] Care Teams (unrecognized sec tion and content) Team Status: Inactive Member Role Status Dates Ron Wallace DO Attending Provider Active NON STAFF Primary Care Provider Active Team Status: Active Member Role Status Dates NON STAFF Primary Care Provider Active Team Status: Inactive Member Role Status Dates NON STAFF Primary Care Provider Active Siva You MD Attending Provider Active Enterprise Services Manager Relationship Specialty Start Date End Date Shad Elliott VISUALIZATION DEVELOPER-PROCUREMENT COST COORDINATOR [address] [place], [place] [id number] PCP - General Primary Care 12/06/21 Enterprise Services Manager Relationship Specialty Start Date End Date Shad Elliott APRN-PROCUREMENT COST COORDINATOR [address] [place] [address] PCP - General Primary Care 12/06/21 Enterprise Services Manager Relationship Specialty Start Date End Date Shad Elliott APRN-PROCUREMENT COST COORDINATOR [address] [place] [address] PCP - General Primary Care 12/06/21 Enterprise Services Manager Relationship Specialty Start Date End Date Bhumi Helm VISUALIZATION DEVELOPER-COLD MILL SUPERVISOR [address] [place] [address] PCP - General Family Medicine 11/12/23 Enterprise Services Manager Relationship Specialty Start Date End Date Bhumi Helm APRN-COLD MILL SUPERVISOR [address] [place], [place] [id number] PCP - General Family Medicine 11/12/23 Enterprise Services Manager Relationship Specialty Start Date End Date Bhumi Helm APRN-COLD MILL SUPERVISOR [address] [place] [address] PCP - General Family Medicine 11/12/23 Enterprise Services Manager Relationship Specialty Start Date End Date Bhumi Helm, VISUALIZATION DEVELOPER-COLD MILL SUPERVISOR [address] [place] [address] PCP - General Family Medicine 11/12/23 Enterprise Services Manager Relationship Specialty Start Date End Date hSarmin Poole PA PCP - NOMEli Razo [facility] 08/06/23 Enterprise Services Manager Relationship Specialty Start Date End Date Sharmin Poole PA PCP - NOMEli Razo [facility] 08/06/23 Enterprise Services Manager Relationship Specialty Start Date End Date Bhumi Helm, VISUALIZATION DEVELOPER-COLD MILL SUPERVISOR [address] [place] [address] PCP - General Family Medicine 11/12/23 Enterprise Services Manager Relationship Specialty Start Date End Date Bhumi Helm VISUALIZATION DEVELOPER-COLD MILL SUPERVISOR [address] [address] PCP - General Family Medicine 11/12/23 Enterprise Services Manager Relationship Specialty Start Date End Date Bhumi Helm, VISUALIZATION DEVELOPER-COLD MILL SUPERVISOR [address] [place] [address] PCP - General Family Medicine 11/12/23 Enterprise Services Manager Relationship Specialty Start Date End Date Sharmin Poole PA PCP Jama NOMEli Razo [facility] 08/06/23 Team Status: Active Member Role Status Dates Tash Hairston LIQUEFACTION AND REGASIFICATION HELPER-C Primary Care Provider Active Team Status: Inactive Member Role Status Dates Leslie Rodriguez DO Attending Provider Active Sta rt: August 11, 2024 End: August 11, 2024 Tash Hairston LIQUEFACTION AND REGASIFICATION HELPER-C Primary Care Provider Active Start: August 11, 2024 End: August 11, 2024 Team Status: Active Member Role Status Dates Nesha Hoang VISUALIZATION DEVELOPER LIQUEFACTION AND REGASIFICATION HELPER-C Primary Care Provider Active Team Status: Inactive Member Role Status Dates Nesha Hoang VISUALIZATION DEVELOPER LIQUEFACTION AND REGASIFICATION HELPER-C Primary Care Provider Active Start: September 11, 2024 End: September 11, 2024 Nesha Hoang VISUALIZATION DEVELOPER LIQUEFACTION AND REGASIFICATION HELPER-C Attending Provider Act jie Start: September 11, 2024 End: September 11, 2024 Team Status: Inactive Member Role Status Dates Nesha Hoang VISUALIZATION DEVELOPER LIQUEFACTION AND REGASIFICATION HELPER-C Primary Care Provider Active Start: September 18, 2024 End: September 18, 2024 SHELLY Alston RN LIQUEFACTION AND REGASIFICATION HELPER-C Attending Provider Active Start: September 18, 2024 End: September 18, 2024 Team Status: Active Member Role Status Dates Nesha Hoang VISUALIZATION DEVELOPER LIQUEFACTION AND REGASIFICATION HELPER-C Primary Care Provider Active Start: October 072024 Nesha Hoang VISUALIZATION DEVELOPER LIQUEFACTION AND REGASIFICATION HELPER-C Attending Provider Active Start: October Team Status: Inactive Member Role Status Dates Nesha Hoang VISUALIZATION DEVELOPER LIQUEFACTION AND REGASIFICATION HELPER-C Primary Care Provider Active Start: October 082024 End: October 08, 2024 Nesha Hoang VISUALIZATION DEVELOPER LIQUEFACTION AND REGASIFICATION HELPER-C Attending Provider Active Start: October End: October 08, 2024 Enterprise Services Manager Relationship Specialty Start Date End Date Bhumi Helm APRN-COLD MILL SUPERVISOR [address] [place] [address] PCP - General Family Medicine 11/12/23 Goals [...] sectionGoals may be documented in an alternate sectionGoals may be documented in an alternate sectionGoals may be documented in an alternate sectionNot on filedocumented as of this encounter REASON FOR VISIT (unrecogniz ed section and content) Reason Comments Follow-up Reason Comments Colon Cancer Screening First colonoscopy Reason Comments Suspicious Skin Lesion Specialty Diagnoses / Procedures Referred By Connie dowling Referred To Contact Dermatology Diagnoses scalp lesion Procedures office visit Marisol Canales MD [address] [place] [address] fax: Chau Williamson MD [address] [address] Phone: tel: fax: Referral ID Status Reason Start Date Expiration Date Visits Re quested Visits Authorized [id number] Closed 05/15/2024 11/11/2024 1 1 Reason Onset Date Comments Question appointment 06/16/2024 Reason Comments New Patient Patient is here toda y as a new patientDx frequent headachesCerebral aneurysm Specialty Diagnoses / Procedures Referred By Connie dowling Referred To Contact Neurology Diagnoses Frequent headaches Marisol Canales MD [address] [place] [address] Phone: tel: fax: Gaurav Henson MD [address] [place] [address] Phone: tel: fax: Referral ID Status Reason Start Date Expiration Date Visits Requested Visits Authorized [id number] Pending Review Specialty Services Required 06/10/2024 06/10/2025 1 1 Reason Comments Mohs Micrographic Surgery Reason Comments Follow-up Patient is here toda y for follow up on dx: Migraine with aura and without status migrainosus, not intractable FOR RECORDS PERTAINING TO PATIENTS WHO ARE [...] BE BASED ON THE PRIMARY CLINICAL RECORDS. [facility] [employer] [facility]. provides no warranty or guarantee of the accuracy or completeness of information in this document.
== END 2024-10-22 11:30 | disposition home or self-care (01) ==
LOC: RAD 11:31
PROVIDERS: Visit Provider Podiatrist Foot & Ankle Surgery
DX: M79.671 Pain in right foot (principal); M79.672 Pain in left foot
CPT/HCPCS: 73630

== ENCOUNTER 2025-01-22 15:28 | Emergency (ER) | payer MEDICAID, SELFPAY ==
--- OUTSIDE RECORDS SUMMARY | 2024-08-25 05:30 | XMS_ITS ---
Author Organization [facility] vices Address [address] [place] [place] [id number] Care Team Providers Care It Service Delivery Manager Name Role Phone Marisol Canales Primary Care Provider Papa Delvalle Unavailable [phone] Jossy Mirza Unavailable [phone] REASON FOR VISIT HTN & GERD Social History Sex Assigned At : Social History Observation Description Sex Assigned At Female Encounters Encounter Location Date Provider Diagnosis Main [address] [place] [id number] 08/25/2024 Jossy Mirza Plan Of Treatment No Information Progress Notes * Juliana FRANCOISDOB:1980 (44 yo F)Acc No.[id number]:08/25/2024 Medical Note Patient: Juliana Jacobs :?Jossy MirzaDOB:1980???Age:43 Y???Sex: FemaleDate:08/25/2024Phone:[phone]:JASWINDER LEES [id number]:Marisol Canales Subjective: * Chief Complaints: * H TN & GERD * Electronic signature of SHELDON Bose on 01/22/2025 at 04:22 PM ESTSign off status: Pending * Provider: Walter Mirza Date: 0 08/25/2024 Generated for Printing/Faxing/eTransmitting on:?01/22/2025 04:22 PM EST
[2025-01-22 15:36] VITALS: BP 166/106; PULSE 93; TEMP 36.6; O2SAT 98; BMI 41.6
--- NOTE | 2025-01-22 16:10 | XR_ITS ---
The [address] [address] Patient Name: ARACELI FRANCOIS MRN: [id number] date: 1980 Sex: F Assigned Patient Location: ER Current Patient Location: ED.MAIN Accession/Order Number: [id number] Exam Date: 01/22/2025 16:15 Report Date: 01/22/2025 16:40 At the request of: JORDEN ALVARENGA Procedure: XR wrist LT min 3V History: Fell. Left hand and wrist pain 3 views left hand. Adequate bony alignment without acute displaced fracture. 3 views left wrist. Adequate bony alignment without acute displaced fracture. XR/XR hand LT min 3V IMPRESSION: No acute displaced fracture of the left hand or wrist. Impression dictated by: Margarito Mireles M.D. 01/22/2025 4:40 PM Dictation Location: [place] [address] Electronically authenticated by: [id number] Y Date: 01/22/2025 16:40
--- NOTE | 2025-01-22 16:10 | XR_ITS ---
The [address] [address] Patient Name: ARACELI FRANCOIS MRN: [id number] date: 1980 Sex: F Assigned Patient Location: ER Current Patient Location: ED.MAIN Accession/Order Number: [id number] Exam Date: 01/22/2025 16:15 Report Date: 01/22/2025 16:40 At the request of: JORDEN ALVARENGA Procedure: XR wrist LT min 3V History: Fell. Left hand and wrist pain 3 views left hand. Adequate bony alignment without acute displaced fracture. 3 views left wrist. Adequate bony alignment without acute displaced fracture. XR/XR wrist LT min 3V IMPRESSION: No acute displaced fracture of the left hand or wrist. Impression dictated by: Margarito Mireles M.D. 01/22/2025 4:40 PM Dictation Location: [place] [address] Electronically authenticated by: [id number] Y Date: 01/22/2025 16:40
--- NOTE | 2025-01-22 16:12 | ED.GENADUL1 ---
HPI HPI - General Adult General Chief complaint: Extremity Injury, Upper Stated complaint: Pain L Hand Time Seen by Provider: 01/22/25 15:50 Source: patient Mode of arrival: walk-in Limitations: no limitations History of Present Illness HPI narrative: Patient is a 44-year-old female that presents with complaints of left hand pain after a fall onto outstretched arm 2 days ago. She reports that the pain has been progressive in nature after the fall and her hand is swollen. Most of the pain is located at the thenar eminence and will radiate up her forearm. She denies any previous injury or surgery to this hand. She is right-handed. Related Data Home Medications ?Medication ?Instructions ?Recorded ?Confirmed amitriptyline 25 mg tablet 30 mg PO DAILY 04/09/24 01/22/25 amlodipine 10 mg tablet 10 mg PO DAILY 04/09/24 01/22/25 atorvastatin 40 mg tablet 40 mg PO DAILY 04/09/24 01/22/25 losartan 100 mg tablet 100 mg PO DAILY 04/09/24 01/22/25 omega-3 fatty acids-fish oil 300 1 cap PO DAILY 04/09/24 01/22/25 mg-1,000 mg capsule omeprazole 40 mg capsule,delayed 40 mg PO BID 04/09/24 01/22/25 release hydroxyzine HCl 50 mg tablet 50 mg PO .qhs 01/22/25 01/22/25 Previous Rx's ?Medication ?Instructions ?Recorded hydrocodone 5 mg-acetaminophen 325 1 tab PO TID PRN pain 4 days #12 06/24/24 mg tablet tabs ketorolac 10 mg tablet 10 mg PO TID PRN pain 4 days #12 06/24/24 tabs prednisone 20 mg tablet 40 mg (2 x 20 mg) PO DAILY 5 days 06/24/24 #10 tabs Allergies Allergy/AdvReac Type Severity Reaction Status Date / Time Penicillins Allergy Intermediate shortness Verified 06/24/24 16:20 of breath duloxetine (From Cymbalta) AdvReac Intermediate Vomiting Verified 06/24/24 16:20 naproxen (From EC-Naproxen) AdvReac Intermediate Rash Verified 06/24/24 16:20 nickel AdvReac Rash Uncoded 06/24/24 16:20 Opioid HPI Opioid Management Most Recent Opioid Data: Last Pain Scale 10 06/24/24, 17:35 Review of Systems ROS Status of ROS 10 or more systems reviewed and unremarkable except as noted in history and below [facility] Medical History (Updated 01/22/25 @ 17:10 by LYLE Mendoza) Factor 5 Leiden mutation, heterozygous ?D68.51 - Activated protein C resistance (ICD-10) Brain aneurysm ?I67.1 - Cerebral aneurysm, nonruptured (ICD-10) Surgical History (Updated 01/22/25 @ 15:44 by Rhona Jamison RN) History of cholecystectomy ?Z90.49 - Acquired absence of other specified parts of digestive tract (ICD-10) History of hysterectomy ?Z90.710 - Acquired absence of both cervix and uterus (ICD-10) Social History Smoking status: Current every day smoker Little interest or pleasure in doing things: not at all Feeling down, depressed, or hopeless: not at all Exam Narrative Exam Narrative: General: No distress, age-appropriate Skin: Warm, dry, no pallor. No rash. Head: Normocephalic, atraumatic. Neck: Supple, non-tender. Eye: Pupils are equal, round and EOMI. No scleral icterus. Ears, Nose, Mouth, and Throat: No nasal mucosal hypertrophy. Oral mucosa is moist, no posterior oropharynx erythema, uvula is mid-line Cardiovascular: Regular Rate and Rhythm without murmur, gallop or rub. Respiratory: No accessory muscle use or respiratory distress. Musculoskeletal: Full ROM of all extremities, no calf or popliteal tenderness. Left hand reduced flexion in all fingers and thumb secondary to pain. Swelling noted at the thenar eminence and throughout all fingers and thumb. Less than 2-second capillary refill and sensation intact distally with light touch to all fingers and thumb. Tenderness with palpation at the distal radius and ulna, thenar eminence. Neurological: A&O x4. No cranial nerve dysfunction observed. No truncal ataxia. Moves all extremities. Sensation intact. Psychiatric: Cooperative and interactive. Normal mood and affect. Constitutional Vital Signs, click to edit/add: Last Vital Signs Temp 98 F 01/22/25 15:36 Pulse 93 H 01/22/25 15:36 Resp 18 01/22/25 15:36 BP 166/106 H 12/18/25 15:36 Pulse Ox 98 01/22/25 15:36 O2 Del Method Room Air 01/22/25 15:36 Documenting provider has reviewed patient's vital signs: yes Course Vital Signs Vital signs: Vital Signs Temperature 98 F 01/22/25 15:36 Pulse Rate 93 H 01/22/25 15:36 Respiratory Rate 18 01/22/25 15:36 Blood Pressure 166/106 H 01/22/25 15:36 Pulse Oximetry 98 01/22/25 15:36 Oxygen Delivery Method Room Air 01/22/25 15:36 Temperature 98 F 01/22/25 15:36 Pulse Rate 93 H 01/22/25 15:36 Respiratory Rate 18 01/22/25 15:36 Blood Pressure 166/106 H 01/22/25 15:36 Pulse Oximetry 98 01/22/25 15:36 Oxygen Delivery Method Room Air 01/22/25 15:36 Medical Decision Making MDM Narrative Medical decision making narrative: This is a 44-year-old right-hand?dominant female presented with progressive left hand pain and swelling following a fall onto an outstretched arm 2 days prior. Given focal pain at the thenar eminence with radiation up the forearm and concern for occult injury (including ligamentous injury, scaphoid fracture, or soft tissue contusion), X-rays of the left hand and wrist were obtained and showed no acute fracture or dislocation. I discussed results with patient and despite negative imaging, the mechanism of injury and exam findings raised concern for possible occult fracture or ligamentous injury not visible on initial radiographs. The patient was therefore treated conservatively with immobilization using a thumb spica splint, and RICE therapy was recommended for symptom control. Patient neurovascularly intact after splint application. She was advised on activity modification and return precautions, including worsening pain, increasing swelling, numbness, or decreased range of motion. Outpatient orthopedic follow-up was recommended for re-evaluation and possible advanced imaging if symptoms persist. The patient was stable for discharge and agreed with the plan. Differential Diagnosis Differential Diagnosis: Fracture, Bone Contusion, Soft tissue contusion Imaging Data Xray Left Hand/ Wrist: Attestation: I have reviewed the pertinent imaging results. Radiologist's impression: ITS Impressions Hand X-Ray 01/22/25 16:10 IMPRESSION: No acute displaced fracture of the left hand or wrist. Impression dictated by: Margarito Mireles M.D. 01/22/2025 4:40 PM Dictation Location: [facility] Electronically authenticated by: [id number] Y Date: 01/22/2025 16:40 Wrist X-Ray 01/22/25 16:10 IMPRESSION: No acute displaced fracture of the left hand or wrist. Impression dictated by: Margarito Mireles M.D. 01/22/2025 4:40 PM Dictation Location: [facility] Electronically authenticated by: [id number] Y Date: 01/22/2025 16:40 Discharge Plan Discharge Chief Complaint: Extremity Injury, Upper Clinical Impression: Hand pain, Pain in wrist Patient Disposition: Home, Self-Care Time of Disposition Decision: 17:08 Condition: Good Mode of Transportation: Private Vehicle Prescriptions / Home Meds: No Action atorvastatin 40 mg tablet 40 mg PO DAILY omeprazole 40 mg capsule,delayed release(DR/EC) 40 mg PO BID amitriptyline 25 mg tablet 30 mg PO DAILY amlodipine 10 mg tablet 10 mg PO DAILY losartan 100 mg tablet 100 mg PO DAILY omega-3 fatty acids-fish oil 300-1,000 mg capsule 1 cap PO DAILY ketorolac 10 mg tablet 10 mg PO TID PRN (Reason: pain) 4 Days Qty: 12 0RF hydrocodone-acetaminophen 5-325 mg tablet 1 tab PO TID PRN (Reason: pain) 4 Days Qty: 12 0RF prednisone 20 mg tablet 40 mg PO DAILY 5 Days Qty: 10 0RF hydroxyzine HCl 50 mg tablet 50 mg PO .[facility] Print Language: Beninese Instructions: Wrist Injury (ED) Referrals: Mukund Ventura DO [Physician, Orthopedics] - 1 week Referral Note: [address] [place], [place] [id number] [place] [address] [Physician, Unknown] - 1 week Discharge Date/Time: 01/22/25 17:20 Procedures ED Ortho Splinting/Casting Orthopedic Splinting/Casting Injury #1: Side: left Splint type: Splint arm short (Left Thumb Spica Brace) Upper extremity injury location: hand Upper extremity immobilizer: thumb spica Additional comments: Patient reexamined after left thumb spica brace placed and neurovascularly intact.
--- OUTSIDE RECORDS SUMMARY | 2025-01-22 16:22 | XMS_ITS | Patient Health Record ---
Author Organization [facility] Image [facility] Address [address] [address], [place] [address] Care Team Providers Care Oil Heaterman Name Role Phone Lukasz Barba Unavailable [phone] Allergies Allergen (clinical drug ingredient) Drug/Non Drug Allergy documented on EMR Reaction Allergy Type Onset Date Status duloxetine Cymbalta Unknown Drug Allergy ActiveHymenoptera Venom -Bee, Wasp, Yellow Jacket StingsUnknownAllergyActive naproxenNaproxenUnknownDrug AllergyActivenickelNickelUnknownAllergyActive PenicillinUnknownDrug AllergyActive Reason For Referral No Information Medications Medication SIG (Take, Route, Frequency, Duration) Notes Start Date End Date Status ARIPiprazole 5 MG Tablet TAKE 1 TABLET B Y MOUTH ONCE DAILY Oral; Duration: 30 Days ActiveSertraline HCl 50 MG TabletTAKE 1 TABLET BY MOUTH IN THE MORNING ONCE DAILY Oral; Duration: 30 DaysActivelamoTRIgine 25 MG TabletTAKE 1 TABLET BY MOUTH IN THE MORNING for days 1-14 and then on days 15-30 TAKE 2 TABLETS BY MOUTH IN THE MORNING Oral; Duration: 30 DaysActiveAmitriptyline HCl 10 MG Tablet TAKE 3 TABLETS BY MOUTH AT BEDTIME Oral; Duration: 30 DaysActiveOmeprazole 40 MG Capsule Delayed ReleaseTAKE 1 CAPSULE BY MOUTH TWICE DAILY Oral; Duration: 90 DaysActiveLosartan Potassium 100 MG TabletTAKE 1 TABLET BY MOUTH DAILY Oral; Duration: 90 DaysActiveAtorvastatin Calcium 40 MG TabletTAKE 1 TABLET BY MOUTH AT BEDTIME Oral; Duration: 90 DaysActiveamLODIPine Besylate 10 MG TabletTAKE 1 TABLET BY MOUTH DAILY Oral; Duration: 90 DaysActiveFish Oil 1000 MG CapsuleOral; Duration: 30 DaysActive Social History Section Notes: Patient is a current smoker. No alcohol use. Encounters Encounter Location Date Provider Diagnosis [facility] [address] [address], [place] [address] 11/03/2024 Lukasz Barba Lumbar radiculopathy M54.16 ; Right foot pain M79.671 and Left foot pain M79.672 Assessments Encounter Date Diagnosis (ICD Code) Assessment Notes Treatment Notes Treatment Clinical Notes Section Notes 11/03/2024 Right foot pain (ICD-10 - M79.67 1) 11/03/2024Lumbar radiculopathy (ICD-10 - M54.16) Patient was seen and evaluated. Patient education provided and all questions answered to satisfaction. I recommended nonsurgical treatment for her feet as I believe her foot pain is secondary to lumbar radiculopathy and fibromyalgia. Treatment advices included: - RICE therapy as well as shoe and activity modification - Physical therapy order was provided with pool therapy - Imaging ordered and reviewed of b/l feet which demonstrate no osseous abnormality. Alignment is WNL. No significant arthritic findings. Arch height preserved. 11/03/2024Left foot pain (ICD-10 - M79.672) Plan Of Treatment No Information Insurance Providers Payer Name Payer Address Payer Phone Subscriber Number Group Number Insured Name Patient Relationship to Insured Coverage Start Date Coverage End Date Medicaid [place] An[employer] [address] [address] [place] [address] [id number] Suzette Pérez - patient is the insured Medical (General) History Medical History History ICD Code Gout Right Foot FibromyalgiaASrthritisFactor 5 LeidenAuto Immune DisorderSkin CancerBrain AneurysmSurgical History Surgery Date(Month/Year) Brain Aneurysms MOHS Surgery
--- OUTSIDE RECORDS SUMMARY | 2025-01-22 16:23 | XMS_ITS | Clinical Summary ---
Author Organization [facility] Address [address] [place] [address] Care Team Providers Care Metal Tube Cutter Name Role Phone Sharmin Poole Unavailable Allergies Active AllergyReactionsCriticalityNoted DateCommentsDuloxetine Hcl06/02/2024 Dycjkcdd24/28/0318Nomcby73/28/5589Plammmcppzm99/28/2025 Medications MedicationSigDispense QuantityRefillsLast FilledStart DateEnd DateStatus amLODIPine (Norvasc) 10 MG tablet Take by mouth DailyActive omeprazole (PriLOSEC) [address] capsule Take 40 mg by mouth in the morning. Take before meals. Do not crush or chew. Active omega-3 (FISH OIL) 300 MG capsule Take by mouth DailyActive atorvastatin (Lipitor) 40 MG tablet Take 40 mg by mouth DailyActive losartan (Cozaar) 50 MG tablet Take by mouthActive amitriptyline (Elavil) 25 MG tablet Take by mouth at bedtimeActive hydroCHLOROthiazide (HYDRODiuril) 25 MG tablet Take 25 mg by mouth in the morning.Active Rimegepant Sulfate (Nurtec) 75 MG tablet dispersible Take 75 mg by mouth Daily as [id number] ARIPiprazole (Abilify) 2 MG tablet Take 2 mg by mouth at /02/2025Active sertraline (Zoloft) 50 MG tablet Take 50 mg by mouth Daily5Active Active Problems ProblemNoted DateDiagnosed DateMixed wkpddrsmgpfe57/11/2023 Overview (06/02/2024): Factor 5 Leiden mutation-trait-- Dr [...] day. Plan: Renal bladder ultrasound. Cystoscopy urodynamics [facility] bladder solution. Family history of cerebrovascular accident (CVA) due to ljqiwcuq41/09/2023 Overview (06/02/2024): Added automatically from request for surgery [id number] Cerebral aneurysm ([facility])2Calculus of gallbladder without cholecystitis without wqxfumyltps76/02/3902Owaqmyboi36/04/2017Endometriosis 06/08/2016Factor 5 Leiden mutation, heterozygous ([facility])06/08/2016Fibromyalgia 06/08/2016Gastroesophageal reflux ugkgygz4406/08/20160829Zyjtuhuk69/04/2017Seizures 06/08/2016 Encounters DateTypeDepartmentCare KgzySgeyhccxcej95/29/2025 10:00 AM EDTOffice Visit [facility] [address] [place] [address] Faustina Williamson MD Melanocytic nevus of trunk (Primary Dx); Lentigines; Idiopathic guttate hypomelanosis; Keratosis pilaris; History of SCC (squamous cell carcinoma) of skin12/03/2024amboo flowsheet [facility] [address] [facility] [address] [place] [address] Faustina Williamson MD 12/03/2024Travelfrom Last 3 Months Social History Tobacco UseTypesPacks/DayYears UsedDateSmoking Tobacco: Every DayCigarettes Smokeless Tobacco: Never Tobacco Cessation:Ready to Q uit: Not Asked; Counseling Given: Not Answered Alcohol UseStandard Drinks/WeekCommentsDefer0 (1 standard drink = 0.6 oz pure alcohol)CommentsUnknownSex and Gender InformationValueDate RecordedSex Assigned at StwvrEkgtci17/16/2025 10:51 AM EDTLegal GwhTeuxgp56/25/2024 11:42 AM EDTGender ZeunbvpuBhhbmn01/16/2025 10:51 AM EDTSexual OrientationNot on file Last Filed Vital Signs Vital SignReadingTime TakenCommentsBlood Excwufjm592/95007/31/2024 3:35 PM EDT Pulse--Temperature--Respiratory Rate--Oxygen Saturation--Inhaled Oxygen Concentration--Weight--Height--Body Mass Index-- Plan of Treatment DateTypeDepartmentCare Team (Latest Contact Info)Uqlefjfuuqr81/28/2026 10:20 AM EDTOffice Visit [facility] [address] [facility] [address] [place] [address] Faustina Williamson MD [address] [facility] [address] [place] [address] Health MaintenanceDue DateLast DoneCommentsCT Bcsjiniswzgz60/31/1979FIT-DNA 1978FIT1978FOBT1978 3347Ahudtinzwxtpz59/31/1979Pneumococcal Vaccine: Pediatrics (0 to 5 Years) and At-Risk Patients (6 to 64 Years) (1 of 2 - PCV)1997Pap Smear09/05/1999Cervical Cancer Arvcrsgzd74/31/2009HPV/Cotest 09/04/20083844Hspcwehzs25/14/202206/14/2021COVID-19 Vaccine ( season) 2024Influenza Vaccine (#1)10/06/20249231Xuaxymaxhov12 Colorectal Cancer Mjdndsczv75/25/2034 Insurance Care Teams Team MemberRelationshipSpecialtyStart DateEnd Date Sharmin Poole PA PCP - [facility]08/06/23
--- OUTSIDE RECORDS SUMMARY | 2025-01-22 16:23 | XMS_ITS | Clinical Summary ---
Author Organization [facility] [facility] tem Address [facility] [place]-[id number] [address] [place] [address] Care Team Providers Care Pallet Sorter Name Role Phone Ivon Wayne WINDOW UNIT AIR CONDITIONING MECHANIC-BELT MEASURER Primary Care Provider [phone]- [phone] Allergies Active AllergyReactionsCriticalityNoted DateCommentsDuloxetineVomitingMedium 12/28/20210977DikrqzlvFposfCvdg66/04/4931Cenxin47/30/2019PenicillinsShortness Of Breath,ZvceIbto09/13/2017 Medications MedicationSigDispense QuantityRefillsLast FilledStart DateEnd DateStatus omeprazole (PriLOSEC) 40 mg capsule Take 1 capsule (40 mg total) by mouth every morning before breakfast.12/07/2021 Active amLODIPine (NORVASC) 5 mg tablet Indications:hypertensionTake 2 tablets (10 mg total) by mouth nightly Indications: high blood pressure.12/25/2021ctive losartan (COZAAR) 50 mg tablet Take 2 tablets (100 mg total) by mouth nightly.12/05/2021ctive atorvastatin (LIPITOR) 20 mg tablet Take 2 tablets (40 mg total) by mouth in the morning.04/24/2022ctive omega 5-tkj-xvs-fish oil (FISH OIL) 300-1,000 mg capsule,delayed release(DR/EC) Take 1 capsule by mouth in the morning.05/22/2022ctive tiZANidine (ZANAFLEX) 2 mg tablet Indications:FibromyalgiaOne tab at 8:00 p.m.each night 90 tablet 1103Active solifenacin (VESICARE) 5 mg tablet Take 1 tablet (5 mg total) by mouth in the morning. 30 tablet 4Active bisacodyL (DULCOLAX, BISACODYL,) 5 mg EC tablet Indications:Encounter for screening colonoscopyPlease see instructional sheet given by physicians office. 2 tablet 4Active hydroCHLOROthiazide (HYDRODIURIL) 25 mg tablet Take 1 tablet (25 mg total) by mouth daily.4Active amitriptyline (ELAVIL) 10 mg tablet Take 3 tablets (30 mg total) by mouth nightly. at /06/2025Active rimegepant (NURTEC ODT) 75 mg disintegrating tablet Indications:Migraine with aura and without status migrainosus, not intractable Dissolve 1 tablet (75 mg total) on tongue as needed (migraine). Maximum of 1 dose per 24 hours 16 tablet 5Active ARIPiprazole (ABILIFY) 5 mg tablet Take 1 tablet (5 mg total) by mouth.5Active sertraline (ZOLOFT) 50 mg tablet Take 1 tablet (50 mg total) by mouth every morning. TAKE 1 TABLET BY MOUTH IN THE MORNING ONCE DAILYActive lamoTRIgine (LaMICtal) 25 mg tablet TAKE 1 TABLET BY MOUTH IN THE MORNING for days 1-14 and then on days 15-30 TAKE 2 TABLETS BY MOUTH IN THE VVOIEAV79/01/2025Active Active Problems ProblemNoted DateDiagnosed DateMixed incontinence urge and jhkxoe5211/28/2022Mixed stress and urge urinary /11/2023 Overview (04/25/2023): Factor 5 Leiden mutation-trait-- Dr [...] Plan: Renal bladder ultrasound. Cystoscopy urodynamics [facility] bladder solution. Assessment & Plan (04/25/2023 12:51 PM EDT): No constipation no dry mouth. Will start her on 5 mg VESIcare. Refer her to Dr. Engle. Certainly made need some urodynamic study as well. Deferred to his evaluation and management. Family history of cerebrovascular accident (CVA) due to kowuzfwf04/09/2023 Overview (03/16/2022): Added automatically from request for surgery [id number] Cerebral yivbxcgi80/23/2022Calculus of gallbladder without cholecystitis without auimoqvzdsn08/02/1756Nrezdwvp12/04/2017Factor 5 Leiden mutation, heterozygous 06/08/20167090Ofxyoefwhfwg87/04/2936Wkcpvtkh86/04/9125Xthbdzqlndbvl43/04/2017 Gastroesophageal reflux nryhcfn3706/08/20162100Fmkuuyzgw12/04/2017 Encounters DateTypeDepartmentCare IbizPrryaxbdiwn67/18/2025Telephone [facility], [facility] Department of [facility] [address] [address] [place] [address] Janis Mckinley from Last 3 Months Immunizations ImmunizationAdministration DatesNext XmxOcjh6109/28/2018 Family History Medical HistoryRelationNameCommentsAlcohol abuseBrother 2Josh ColemanYears ago Anesthesia problemsFatherDavid Colemanprolonged emergenceArthritisFatherDavid ColemanBleeding DisorderFatherDavid ColemanBlood ClotsFatherDavid Beto DiabetesFatherDavid ColemanHeart attackFatherDavid ColemanHeart diseaseFather Keith PérezHigh CholesterolFatherDavid ColemanHypertensionFatherDavid Pérez HypothyroidismMotherOtherMotherSwallowing problems/HeartburnSwallowing difficultiesMotherThyroid IssuesMotherHypertensionPaternal GrandfatherGeorge colemanStrokePaternal GrandfatherGeorge colemanAsthmaSon 1Nicholas Scarberry AsthmaSon 3Alonzo ColemanOtherSon 4Eosinophilic esophagitis (EoE)Breast cancer Neg HxRelationNameStatusCommentsBrother 1AliveBrother 2Josh ColemanFatherDavid ColemanAliveMaternal GrandfatherDeceasedMaternal GrandmotherDeceasedMotherAlive Paternal GrandfatherGeorge colemanDeceasedPaternal GrandmotherDeceasedSister AliveSon 1Nicholas ScarberryAliveSon 2AliveSon 3Alonzo ColemanSon 4 Social History Tobacco UseTypesPacks/DayYears UsedDateSmoking Tobacco: Every DayCigarettes0.345 Smokeless Tobacco: Never Tobacco Cessation:Ready to Q uit: Not Asked; Counseling Given: Not Answered Comments:Has a patch and down to 4 cig. Per day Alcohol UseStandard Drinks/WeekCommentsNo0 (1 standard drink = 0.6 oz pure alcohol)AUDIT-CAnswerDate RecordedQ1: How often do you have a drink containing alcohol?Never07/05/2022Q2: How many drinks containing alcohol do you have on a typical day when you are drinking?Patient does not drink07/05/2022Q3: How often do you have six or more drinks on one occasion?Never3PHQ-2AnswerDate RecordedTotal Figil3903ChildcareAnswerDate RecordedChildcareUnknown 07/17/2018EmploymentAnswerDate HimvxqclVopbveefjnOqfpcpa57/12/2019Hunger ScreeningAnswerDate RecordedWithin the past 12 months we worried whether our food would run out before we got money to buy more.Never True10/08/2024Within the past 12 months the food we bought just didn't last and we didn't have money to get more.Never True10/08/2024Purpose - LifeAnswerDate RecordedPurpose and direction in cflcGltxafc60/11/2021CommentsNoSex and Gender Information ValueDate RecordedSex Assigned at BirthNot on fileLegal OoyMlsfsl31/06/2015 11:27 AM EDTGender IdentityNot on fileSexual OrientationNot on file Last Filed Vital Signs Vital SignReadingTime TakenCommentsBlood Uyeearoq159/8710/08/2024 8:47 AM EDT Hsrrv881110/08/2024 8:47 AM QQIQecqaaxkdem81.6 ??C (97.8 ??F)12/31/2023 9:44 AM ESTRespiratory Rxok640703/01/2023 11:10 AM ESTOxygen Udyuvqzpjy68%12/31/2023 11:10 AM ESTInhaled Oxygen Concentration--Qmswgv670.8 kg (253 lb)10/08/2024 8:47 AM RJBZynxmw908.6 cm (5' 4 )10/08/2024 8:47 AM EDTBody Mass Index43.43010/08/2024 8:47 AM EDT Plan of Treatment DateTypeDepartmentCare Team (Latest Contact Info)Ukrnllokfhp99/06/2026 11:30 AM ESTOffice Visit [facility] [place] [address] [place] [address] Freedom Hsu, PA-C [address] [facility] [facility] [address] [place] [address] Health MaintenanceDue DateLast DoneCommentsTobacco Sleumgyisu70/31/1979Adult BMI Follow Up Plan1996Depression Xzxppwlkm31Influenza Orumwlb0410/06/2024dult BMI Bwgpybrek51/04/2024Tobacco Screening DTaP,Tdap and Td Vaccines (2 - Td or Tdap)09/28/2028 09/28/20187508Ibzgmducpkr80/25/202911/, 12/31/2023 Medical Devices ImplantedTypeAreaManufacturerDevice IdentifierShelf Expiration DateModel / Serial / LotGraft Bn 5ml Yomi Puros Strl Lf - [id number] Implanted:Qty: 1 on 07/05/2022 by [id number] / / [id number] Yasargil Titanium Aneurysm Clip Implanted:Qty: 1 on 07/05/2022 by Eric Jimenez MD at [facility] [id number] / / Cover Bur Hl 14mm Lp Tab Unv Neuro 2 Thk.5mm Ns Lf - [id number] Implanted:Qty: 1 on 07/05/2022 by Eric Jimenez MD at [id number] / / Cover Bur Hl Crnfcl 10mmx.5mm Lp Tab Strl Lf Disp - [id number] Implanted:Qty: 2 on 07/05/2022 by Eric Jimenez MD at [id number] / / Plate Bn 16mm 2 Hl Lp Unv Neuro Ii Crnmxf Ti Ns Lf 1.5mm Scr - [id number] Implanted:Qty: 2 on 07/05/2022 by Eric Jimenez MD at [id number] / / Screw Bn 4mm 1.5mm Slf Drl Xpn Crnmxf Strl - [id number] Implanted:Qty: 8 on 07/05/2022 by Eric Jimenez MD at [id number] / / Procedures Procedure NamePriorityDate/TimeAssociated DiagnosisCommentsPROVATION COLONOSCOPY Xswblsg4512/31/2023 9:31 AM EST from Last 3 Months or Most Recently Relevant to Health Maintenance Results * Colonoscopy Report (12/31/2023 9:31 AM EST)Specimen (Source)Anatomical Location / LateralityCollection Method / VolumeCollection TimeReceived Time Narrative SYSTEMGENERATED, DOCUMENTATION - 12/31/2023 9:31 AM EST This order has been auto-finalized for image and report archival in PACs. *For full report details, please reach out to your physician. ??This image is visible to you in MyChart.* Authorizing ProviderResult TypeResult StatusMichael E Grillis DOIMG OR IMG ORDERABLESFinal Result from Last 3 Months or Most Recently Relevant to Health Maintenance Insurance Advance Directives * Full Code (Latest Code Status on File) Date ActivatedDate InactivatedComments07/05/2022 12:30 PM07/07/2022 4:57 PM Care Teams Team MemberRelationshipSpecialtyStart DateEnd Date Ivon Wayne APRN-FNP [address] [address] PCP - GeneralFamily Scmdrbpz46/7/24
== END 2025-01-22 17:20 | disposition home or self-care (01) ==
PROVIDERS: Emergency Provider Emergency Medicine; PCP Nurse Practitioner Family
DX: M79.642 Pain in left hand (principal); M25.532 Pain in left wrist; F17.200 Nicotine dependence, unspecified, uncomplicated
CPT/HCPCS: 29125; 73110; 73130; 99283

== ENCOUNTER 2025-01-27 10:32 | Outpatient (OUT) | payer MEDICAID, SELFPAY ==
--- OUTSIDE RECORDS SUMMARY | 2024-08-25 05:30 | XMS_ITS ---
Author Organization [facility] vices Address [address] [place] [id number] Care Team Providers Care Share Holder Name Role Phone Marisol Canales Primary Care Provider Papa Delvalle Unavailable [phone] Jossy Mirza Unavailable [phone] REASON FOR VISIT HTN & GERD Social History Sex Assigned At : Social History Observation Description Sex Assigned At Female Encounters Encounter Location Date Provider Diagnosis Main [address] [place] [id number] 08/25/2024 Jossy Mirza Plan Of Treatment No Information Progress Notes * Juliana FRANCOISDOB:1980 (44 yo F)Acc No.[id number]:08/25/2024 Medical Note Patient: Juliana Jacobs :?Jossy MirzaDOB:1980???Age:43 Y???Sex: FemaleDate:08/25/2024Phone:[phone]:JASWINDER LEES [id number]:Marisol Canales Subjective: * Chief Complaints: * H TN & GERD * Electronic signature of SHELDON Bose on 01/27/2025 at 10:35 AM ESTSign off status: Pending * Provider: Walter Mirza Date: 0 08/25/2024 Generated for Printing/Faxing/eTransmitting on:?01/27/2025 10:35 AM EST
--- OUTSIDE RECORDS SUMMARY | 2025-01-27 10:36 | XMS_ITS | Clinical Summary ---
Author Organization [employer] [facility] tem Address [id number] [address] [place] [address] Care Team Providers Care Head Of Digital Advertising & Integration Name Role Phone Ivon Wayne QUALITY REVIEW SPECIALIST-BURRER MARKER AXLE Primary Care Provider [phone]- [phone] Allergies Active AllergyReactionsCriticalityNoted DateCommentsDuloxetineVomitingMedium 12/28/20215423FubgfkdzDqteuMdfs30/04/8879Lfgzzv91/30/2019PenicillinsShortness Of Breath,SbrxHoox84/13/2017 Medications MedicationSigDispense QuantityRefillsLast FilledStart DateEnd DateStatus omeprazole [...] total) by mouth in the morning.04/24/2022ctive omega 5-kyu-lqi-fish oil (FISH OIL) 300-1,000 mg capsule,delayed release(DR/EC) [...] (30 mg total) by mouth nightly. at hjickyz97/06/2025Active rimegepant (NURTEC ODT) 75 mg disintegrating tablet [...] TAKE 2 TABLETS BY MOUTH IN THE ZMFXXDG88/01/2025Active Active Problems ProblemNoted DateDiagnosed DateMixed incontinence urge and qbfwto6911/28/2022Mixed stress and urge urinary /11/2023 Overview (04/25/2023): [...] day. Plan: Renal bladder ultrasound. Cystoscopy urodynamics [facility] bladder solution. Assessment & Plan (04/25/2023 12:51 PM EDT): No constipation no dry mouth. Will start her on 5 mg VESIcare. Refer her to Dr. Engle. Certainly made need some urodynamic study as well. Deferred to his evaluation and management. Family history of cerebrovascular accident (CVA) due to secmqkog31/09/2023 Overview (03/16/2022): Added automatically from request for surgery [id number] Cerebral qfhijqxa46/23/2022Calculus of gallbladder without cholecystitis without /02/4476Pbigbdho85/04/2017Factor 5 Leiden mutation, heterozygous 06/08/20168273Rrzmlyvphrxt37/04/0068Ffmhlcnj21/04/6116Khcaaabizraqq58/04/2017 Gastroesophageal reflux giocjae2006/08/20166064Yjpusurjm67/04/2017 Encounters DateTypeDepartmentCare NeexSrgyamjjpzm31/18/2025Telephone [facility], [facility] Department of [facility] [address] [facility] [address] [place] [address] Janis Mckinley from Last 3 Months Immunizations ImmunizationAdministration DatesNext EukJzjj4009/28/2018 Family History Medical HistoryRelationNameCommentsAlcohol abuseBrother 2Josh ColemanYears [...] or more drinks on one occasion?Never3PHQ-2AnswerDate RecordedTotal Sqawx9513ChildcareAnswerDate RecordedChildcareUnknown 07/17/2018EmploymentAnswerDate GhsbcjowBfwofanrrvFvhgnmw05/12/2019Hunger ScreeningAnswerDate RecordedWithin the past 12 months we worried whether our food would run out before we got money to buy more.Never True10/08/2024Within the past 12 months the food we bought just didn't last and we didn't have money to get more.Never True10/08/2024Purpose - LifeAnswerDate RecordedPurpose and direction in sgkoCzdzabr90/11/2021CommentsNoSex and Gender Information ValueDate RecordedSex Assigned at BirthNot on fileLegal DyjQspizc09/06/2015 11:27 AM EDTGender IdentityNot on fileSexual OrientationNot on file Last Filed Vital Signs Vital SignReadingTime TakenCommentsBlood Grtermlx710/8710/08/2024 8:47 AM EDT Rncjs097710/08/2024 8:47 AM SDZUhgfzcymscv09.6 ??C (97.8 ??F)12/31/2023 9:44 AM ESTRespiratory Rpsj686403/01/2023 11:10 AM ESTOxygen Geqidycmba32%12/31/2023 11:10 AM ESTInhaled Oxygen Concentration--Iwhllb371.8 kg (253 lb)10/08/2024 8:47 AM XMPChndrg072.6 cm (5' 4 )10/08/2024 8:47 AM EDTBody Mass Index43.43010/08/2024 8:47 AM EDT Plan of Treatment DateTypeDepartmentCare Team (Latest Contact Info)Cegejukyees00/06/2026 11:30 AM ESTOffice Visit [facility] [place] [address] [place] [address] Freedom Hsu, PA-C [address] [facility] [address] [place] [address] Health MaintenanceDue DateLast DoneCommentsTobacco Lhcqvozchq20/31/1979Adult BMI Follow Up Plan1996Depression Jlunximvv64Influenza Prqtyvz4710/06/2024dult BMI Scvvigxae91/04/2024Tobacco Screening DTaP,Tdap and Td Vaccines (2 - Td or Tdap)09/28/2028 09/28/20180914Kcvxzymxxuq74/25/202911/, 12/31/2023 Medical Devices ImplantedTypeAreaManufacturerDevice IdentifierShelf Expiration DateModel / Serial / LotGraft Bn 5ml Yomi Puros Strl Lf - [id number] Implanted:Qty: 1 on 07/05/2022 [id number] / / [id number] Yasargil Titanium Aneurysm Clip Implanted:Qty: 1 on 07/05/2022 by Eric Jimenez MD at [facility] [id number] / / Cover Bur Hl 14mm Lp Tab Unv Neuro 2 Thk.5mm Ns Lf - [id number] Implanted:Qty: 1 on 07/05/2022 by Eric Jimenez MD at [id number] / / Cover Bur Hl Crnfcl 10mmx.5mm Lp Tab Strl Lf Disp - [id number] Implanted:Qty: 2 on 07/05/2022 by Eric Jimenez MD at [id number] / / Plate Bn 16mm 2 Hl Lp Unv Neuro Ii Crnmxf Ti Ns Lf 1.5mm Scr - [id number] Implanted:Qty: 2 on 07/05/2022 by Eric Jimenez MD at [id number] / / Screw Bn 4mm 1.5mm Slf Drl Xpn Crnmxf Strl - [id number] Implanted:Qty: 8 on 07/05/2022 by Eric Jimenez MD at [id number] / / Procedures Procedure NamePriorityDate/TimeAssociated DiagnosisCommentsPROVATION COLONOSCOPY Morazqq0412/31/2023 9:31 AM EST from Last 3 Months [...] DateEnd Date Ivon Wayne APRN-FNP [address] [place] [address] PCP - GeneralFamily Jcnfqkxh22/7/24
--- OUTSIDE RECORDS SUMMARY | 2025-01-27 10:36 | XMS_ITS | Patient Health Record ---
Author Organization [employer] [facility] Boyibanggraciela[employer] [facility] Address [address] [address], [place] [address] Care Team Providers Care Gym Supervisor Name Role Phone Lukasz Barba Unavailable [phone] Allergies Allergen (clinical drug ingredient) Drug/Non Drug [...] use. Encounters Encounter Location Date [facility] [address] [address], [place] [address] 11/03/2024 Lukasz Barba Lumbar radiculopathy M54.16 ; [...] End Date Medicaid [place] Anthem [address] [address] [place] [address] [id number] Suzette Pérez - patient is the insured Medical (General) History Medical History History ICD Code Gout Right Foot FibromyalgiaASrthritisFactor 5 LeidenAuto Immune DisorderSkin CancerBrain AneurysmSurgical History Surgery Date(Month/Year) Brain Aneurysms MOHS Surgery
--- OUTSIDE RECORDS SUMMARY | 2025-01-27 10:36 | XMS_ITS | Clinical Summary ---
Author Organization [facility] Address [address] [place] [address] Care Team Providers Care Bundle Wrapper Name Role Phone Sharmin Poole Unavailable Allergies Active AllergyReactionsCriticalityNoted DateCommentsDuloxetine Hcl06/02/2024 Fkdehtgj24/28/3300Hpzafq70/28/7838Yomhpwttneq21/28/2025 Medications MedicationSigDispense QuantityRefillsLast FilledStart DateEnd DateStatus amLODIPine [...] Take 75 mg by mouth Daily as ffxkqy285Active ARIPiprazole (Abilify) 2 MG tablet Take 2 mg by mouth at dnnoivj78/02/2025Active sertraline (Zoloft) 50 MG tablet Take 50 mg by mouth Daily5Active Active Problems ProblemNoted DateDiagnosed DateMixed uexkvuijmyje89/11/2023 Overview (06/02/2024): Factor 5 Leiden mutation-trait-- Dr [...] day. Plan: Renal bladder ultrasound. Cystoscopy urodynamics [facility] bladder solution. Family history of cerebrovascular accident (CVA) due to asiqejgi11/09/2023 Overview (06/02/2024): Added automatically from request for surgery [id number] Cerebral aneurysm ([facility])2Calculus of gallbladder without cholecystitis without lxtqpoocarr32/02/0290Duoeqenxk52/04/2017Endometriosis 06/08/2016Factor 5 Leiden mutation, heterozygous ([facility])06/08/2016Fibromyalgia 06/08/2016Gastroesophageal reflux mtttawm4206/08/20161523Jcrmvkpc94/04/2017Seizures 06/08/2016 Encounters DateTypeDepartmentCare MsrxNuhfjimmmtc87/29/2025 10:00 AM EDTOffice Visit [facility] [address] [place] [address] [place] [address] Faustina Williamson MD Melanocytic nevus of trunk (Primary Dx); Lentigines; Idiopathic guttate hypomelanosis; Keratosis pilaris; History of SCC (squamous cell carcinoma) of skin12/03/2024amboo flowsheet [facility] [address] [facility] [address] [place] [address] Faustina Williamson MD 12/03/2024Travelfrom Last 3 Months Social History Tobacco UseTypesPacks/DayYears UsedDateSmoking Tobacco: Every DayCigarettes Smokeless Tobacco: Never Tobacco Cessation:Ready to Q uit: Not Asked; Counseling Given: Not Answered Alcohol UseStandard Drinks/WeekCommentsDefer0 (1 standard drink = 0.6 oz pure alcohol)CommentsUnknownSex and Gender InformationValueDate RecordedSex Assigned at PmkpwUblvvm24/16/2025 10:51 AM EDTLegal QflCzloti99/25/2024 11:42 AM EDTGender NurknxugJcpbww37/16/2025 10:51 AM EDTSexual OrientationNot on file Last Filed Vital Signs Vital SignReadingTime TakenCommentsBlood Qfrxctfz557/95007/31/2024 3:35 PM EDT Pulse--Temperature--Respiratory Rate--Oxygen Saturation--Inhaled Oxygen Concentration--Weight--Height--Body Mass Index-- Plan of Treatment DateTypeDepartmentCare Team (Latest Contact Info)Xeufkywbjoj98/28/2026 10:20 AM EDTOffice Visit [facility] [address] [facility] [address] [place] [address] Faustina Williamson MD [address] [facility] [address] [place] [address] Health MaintenanceDue DateLast DoneCommentsCT Arniamxrzryl97/31/1979FIT-DNA 1978FIT1978FOBT1978 8472Bhgvrzchsibwi10/31/1979Pneumococcal Vaccine: Pediatrics (0 to 5 Years) and At-Risk Patients (6 to 64 Years) (1 of 2 - PCV)1997Pap Smear09/05/1999Cervical Cancer Vxyzavojw03/31/2009HPV/Cotest 09/04/20080187Ibczbncwr04/14/202206/14/2021COVID-19 Vaccine ( season) 2024Influenza Vaccine (#1)10/06/20241071Jjzfdxsrkfy61 Colorectal Cancer Uwiqljmbe63/25/2034 Insurance Care Teams Team MemberRelationshipSpecialtyStart DateEnd Date Sharmin Poole PA PCP - [facility]08/06/23
[2025-01-27 11:01] LABS: Hematocrit 45.6 % (36.0-48.0); Hemoglobin 15.3 g/dL (12.0-16.0); Immature Granulocytes Abs Auto 0.02 10^3/uL (0.00-0.03); Immature Granulocytes Pct Auto 0.2 % (0.0-0.5); Lymphocytes Absolute Auto 2.3 10^3/uL (1.2-3.8); Mean Corpuscular HGB Conc 33.6 g/dL (29.9-35.2); Mean Corpuscular Hemoglobin 30.1 pg (26.7-34.0); Mean Corpuscular Volume 89.6 fL (81.0-99.0); Platelet Count 296 10^3/uL (150-450); Red Blood Count 5.09 10^6/uL (4.20-5.40); White Blood Count 9.4 10^3/uL (4.0-11.0)
[2025-01-27 11:14] LABS: INR 1.04; Partial Thromboplastin Time 26.0 sec (22.3-36.2); Prothrombin Time 10.9 sec (9.0-11.6)
[2025-01-27 11:37] LABS: Alanine Aminotransferase 25 U/L (14-59); Albumin Globulin Ratio 0.9; Albumin Level 3.3 g/dL (3.4-5.0); Alkaline Phosphatase 124 U/L (46-116); Anion Gap 12.1; Aspartate Amino Transferase 15 U/L (15-37); Blood Urea Nitrogen 8.0 mg/dL (7.0-18.0); Calcium 8.6 mg/dL (8.5-10.1); Carbon Dioxide 28.5 mmol/L (21.0-32.0); Chloride 105 mmol/L (98-107); Estimated GFR (African America >60 (>=60 mL/min/1.73m^2); Estimated GFR (Non-African Ame >60 (>=60 mL/min/1.73m^2); Globulin 3.8 g/dL; Glucose 109 mg/dL (74-106); Potassium 3.6 mmol/L (3.5-5.1); Sodium 142 mmol/L (136-145); Total Protein 7.1 g/dL (6.4-8.2)
== END 2025-01-27 10:33 | disposition home or self-care (01) ==
LOC: LAB 10:33
PROVIDERS: PCP Nurse Practitioner Family; Visit Provider Nurse Practitioner Family
DX: R23.3 Spontaneous ecchymoses (principal)
CPT/HCPCS: 36415; 80053; 85025; 85610; 85730